=== PATIENT | male | born 1960 | race American Indian/Alaskan Native ===

== ENCOUNTER → 2020-07-19 08:46 | Outpatient (BNVA) | payer MEDICAID, SELFPAY | PROVIDERS: Visit Provider Nurse Practitioner Gerontology | DX: Z76.89 Persons encountering health services in other specified circumstances (principal) ==

== ENCOUNTER → 2020-08-19 09:43 | Outpatient (BNVA) | payer MEDICAID, SELFPAY | PROVIDERS: Visit Provider Internal Medicine Cardiovascular Disease | DX: T82.09XD Other mechanical complication of heart valve prosthesis, subsequent encounter (principal); I10 Essential (primary) hypertension; E66.09 Other obesity due to excess calories; Z68.36 Body mass index [BMI] 36.0-36.9, adult; G47.33 Obstructive sleep apnea (adult) (pediatric) | CPT/HCPCS: 93005; 99212 ==

== ENCOUNTER → 2020-09-24 08:19 | Outpatient (BNVA) | payer MEDICAID, SELFPAY | PROVIDERS: PCP Internal Medicine; Visit Provider Psychiatry & Neurology Neurology ==

== ENCOUNTER → 2020-10-15 13:34 | Outpatient (REF) | payer MEDICAID, SELFPAY | LOC: HO.SL 13:34 | PROVIDERS: PCP Internal Medicine; Visit Provider Psychiatry & Neurology Neurology | DX: G47.33 Obstructive sleep apnea (adult) (pediatric) (principal) | CPT/HCPCS: 95806 ==

== ENCOUNTER → 2020-10-16 13:27 | Outpatient (BNVA) | payer MEDICAID, SELFPAY | PROVIDERS: PCP Internal Medicine; Visit Provider Nurse Practitioner Gerontology ==

== ENCOUNTER → 2020-11-12 11:06 | Outpatient (BNVA) | payer MEDICAID, SELFPAY | PROVIDERS: PCP Internal Medicine; Visit Provider Psychiatry & Neurology Neurology ==

== ENCOUNTER → 2020-11-22 14:17 | Outpatient (BNVA) | payer MEDICAID, SELFPAY | PROVIDERS: Visit Provider Nurse Practitioner Gerontology ==

== ENCOUNTER → 2020-12-03 20:09 | Outpatient (REF) | payer MEDICAID, SELFPAY | LOC: HO.SL 20:09 | PROVIDERS: PCP Internal Medicine; Visit Provider Psychiatry & Neurology Neurology | DX: G47.33 Obstructive sleep apnea (adult) (pediatric) (principal); I10 Essential (primary) hypertension | CPT/HCPCS: 95811 ==

== ENCOUNTER 2021-01-14 08:03 | Outpatient (REF) | payer MEDICAID, SELFPAY ==
[2021-01-14 09:13] LABS: Hematocrit 40.2 % (42-52); Hemoglobin 12.7 g/dl (14.0-18.0); Mean Corpuscular HGB Conc 31.6 g/dl (31.0-36.0); Mean Corpuscular Hemoglobin 27.5 pg (27.0-33.0); Mean Corpuscular Volume 87.2 fL (80-98); Mean Platelet Volume 9.6 fL (9.4-12.4); Platelet Count 259 X10*3/uL (160-400); Red Blood Count 4.61 X10*6/uL (4.60-5.80); Red Cell Distribution Width 13.6 % (11.0-16.0); White Blood Count 6.2 X10*3/uL (4.8-10.8)
[2021-01-14 09:30] LABS: Alanine Aminotransferase 17 U/L (0-40); Albumin Level 3.9 g/dL (3.5-5.0); Alkaline Phosphatase 95 U/L (39-117); Anion Gap 13 (12-20); Aspartate Amino Transferase 11 U/L (5-37); Bilirubin Total 0.3 mg/dL (0.0-1.0); Blood Urea Nitrogen 16 mg/dL (9-16); Calcium 8.9 mg/dL (8.4-10.2); Carbon Dioxide 29 mmol/L (22-29); Chloride 99 mmol/L (96-108); Cholesterol 132 mg/dL; Estimated Glomerular Filt Rate > 60; Glucose Fasting 188 mg/dL (60-99); HDL Cholesterol 31 mg/dL; LDL Cholesterol Calculated 71 mg/dl; Potassium 4.7 mmol/L (3.3-5.1); Sodium 136 mmol/L (135-145); Total Protein 6.7 g/dL (6.5-8.0); Triglycerides 154 mg/dL
[2021-01-14 09:33] LABS: Estimated Average Glucose 240 mg/dL
[2021-01-14 09:48] LABS: B Type Natriuretic Peptide < 10 pg/mL (<100)
[2021-01-14 10:03] LABS: Creatinine Urine 238.65 mg/dL; Microalbum/Creatinine Ratio Ur 9.2 ug/mg cr
[2021-01-15 10:02] LABS: LDL Cholesterol Direct 70 mg/dL (<100)
== END 2021-01-14 08:04 | disposition home or self-care (01) ==
LOC: HO.LAB 08:03
PROVIDERS: Internal Medicine Cardiovascular Disease; Absent Provider Nurse Practitioner Gerontology; PCP Internal Medicine; Visit Provider Internal Medicine
DX: E11.40 Type 2 diabetes mellitus with diabetic neuropathy, unspecified (principal); T82.09XA Other mechanical complication of heart valve prosthesis, initial encounter; I10 Essential (primary) hypertension; E11.9 Type 2 diabetes mellitus without complications
CPT/HCPCS: 36415; 80053; 80061; 82043; 83036; 83721; 83880; 85027

== ENCOUNTER → 2021-01-15 12:32 | Outpatient (BNVA) | payer MEDICAID, SELFPAY | PROVIDERS: Visit Provider Nurse Practitioner Gerontology | DX: E11.40 Type 2 diabetes mellitus with diabetic neuropathy, unspecified (principal); E78.5 Hyperlipidemia, unspecified; E66.09 Other obesity due to excess calories; I10 Essential (primary) hypertension; Z79.4 Long term (current) use of insulin; Z68.39 Body mass index [BMI] 39.0-39.9, adult | CPT/HCPCS: 82947; 99212 ==

== ENCOUNTER → 2021-01-21 10:15 | Outpatient (BNVA) | payer MEDICAID, SELFPAY | PROVIDERS: PCP Internal Medicine; Visit Provider Psychiatry & Neurology Neurology ==

== ENCOUNTER → 2021-04-08 11:33 | Outpatient (BNVA) | payer MEDICAID, SELFPAY | PROVIDERS: PCP Internal Medicine; Visit Provider Psychiatry & Neurology Neurology | DX: T82.09XA Other mechanical complication of heart valve prosthesis, initial encounter (principal); Z95.2 Presence of prosthetic heart valve; Z86.79 Personal history of other diseases of the circulatory system | CPT/HCPCS: 99212 ==

== ENCOUNTER → 2021-06-24 10:59 | Outpatient (BNVA) | payer MEDICAID, SELFPAY | PROVIDERS: PCP Internal Medicine; Referring Provider Internal Medicine; Visit Provider Psychiatry & Neurology Neurology ==

== ENCOUNTER → 2021-07-25 13:29 | Outpatient (REF) | payer MEDICAID, SELFPAY ==
--- NOTE | 2021-07-25 13:34 | CA_ITS ---
Transthoracic Echocardiogram Patient (Last, First, Middle): Nemesio Brown, Gender: Male Date of : 1960 Age: 61 Procedure Date: 07/25/2021 Procedure Type: Transthoracic Echocardiogram Location: OP Height: 170.18 cm Weight: 104.33 kg BSA: 2.15 m2 Heart Rate: bpm BP: 116 / 60 mmHg Grocery Store Bagger: Referring MD: Jean Pierre Marie MD Symptoms: T82.09XA - Other mechanical complication of heart valve p... Study Quality: Fair ECG Rhythm: Sinus Conclusions: - Normal left ventricular size, thickness, systolic function, and wall motion. The visually estimated ejection fraction is between 60-65%. - Abnormal diastolic function is noted. Spectral Doppler is indicative of an impaired relaxation filling pattern. E/E prime ratio is <8, consistent with normal filling pressures. - There is mild aortic valve stenosis. The peak aortic velocity is 2.32 m/s. - There is mild dilatation of the ascending aorta measuring 4.20 cm. Findings Left Ventricle Normal left ventricular size, thickness, systolic function, and wall motion. The visually estimated ejection fraction is between 60-65%. Abnormal diastolic function is noted. Spectral Doppler is indicative of an impaired relaxation filling pattern. E/E prime ratio is <8, consistent with normal filling pressures. Right Ventricle Normal right ventricular cavity size and systolic function. Atria The left atrium is mildly dilated. The right atrium is normal in size. Aortic Valve A bioprosthetic aortic valve is present. There is mild aortic valve stenosis. The peak aortic velocity is 2.32 m/s. The aortic valve area is 1.58 cm2. There is no aortic valve regurgitation. Mitral Valve Normal mitral valve structure and function. There is no mitral valve regurgitation. There is no mitral valve stenosis. Pulmonic Valve Normal pulmonic valve structure and function. There is trace pulmonic valve regurgitation. Tricuspid Valve Normal tricuspid valve structure and function. There is trace tricuspid valve regurgitation. Normal right atrial pressure. There is no evidence of pulmonary hypertension. Great Vessels There is mild dilatation of the ascending aorta measuring 4.20 cm. The visualized portions of the pulmonary artery and branches are normal. Venous The inferior vena cava is normal in size. Pericardium/Pleural There is no evidence of pericardial effusion. Measurements 2D Linear Measurements IVSd: 1.01 0.6-0.9/0.6-1.0 cm LVIDd: 4.57 3.9-5.3/4.2-5.9 cm LVIDd Index: 2.13 2.4-3.2/2.2-3.1 cm/m2 LVIDs: 3.67 2.0-3.6 cm LVPWd: 1.01 0.7-1.1 cm Ao Root: 3.10 2.1-3.5 cm LA Diam: 3.40 2.7-3.8/3.0-4.0 cm LAIDs Index: 1.58 1.5-2.3 cm/m2 LV Mass: 198.38 67-162/88-224 g LV Mass Index: 92.27 43-95/49-115 g/m2 LVOT Diam: 2.00 3.0+(-)1.3 cm 2D Systolic Function EF 4C: 65.20 >55% EF 2C: 72.70 >55% EF BiP: 69.50 >55% Mitral Valve MV Pk E: 0.49 MV PK A: 0.82 MV Decel Time: 152.00 E/A: 0.60 E'Lateral: 6.42 E'Medial: 5.87 E/E' Med: 8.30 E/E' Lat: 7.60 PHT: 44.00 MVA PHT: 5.00 Decel Lynn: 3.22 Aortic Valve AoV Pk Eugneio: 2.32 AoV Mn Eugenio: 1.56 AoV VTI: 0.37 AoV Pk Grad: 22.00 Aov Mn Grad: 11.00 JOVON Cont.VTI: 1.58 LVOT LVOT Pk Eugenio: 0.97 LVOT Mn Eugenio: 0.61 LVOT VTI: 0.18 LVOT Pk Grad: 4.00 LVOT Mn Grad: 2.00 LVOT Diam: 2.00 LVOT Area: 3.14 Diastolic Function MV Pk E: 0.49 MV Pk A: 0.82 E/A: 0.60 E'Medial: 5.87 E/E' Med: 8.30 E' Laterial: 6.42 E/E' Lat: 7.60 Right Ventricle TAPSE (mm): 18.00 Tricuspid Valve TR Pk Eugenio: 1.59 TR Pk Grad: 10.00 Great Vessels Aorta Ao Root-2D: 3.10 2.0-3.7 cm Ao Asc: 4.20 2.1-3.4 cm Pulmonary Valve PV Pk Eugenio: 1.38 Peak PV Grad: 8.00 Updated in Other Vendor System with Status of Final Anthony Max MD electronically signed on 07/28/2021 9:35:25 AM with status of Final
== END ==
LOC: HO.CARD 13:29
PROVIDERS: PCP Internal Medicine; Visit Provider Internal Medicine Cardiovascular Disease
DX: T82.09XD Other mechanical complication of heart valve prosthesis, subsequent encounter (principal)
CPT/HCPCS: 93306

== ENCOUNTER → 2021-11-12 12:50 | Outpatient (BNVA) | payer MEDICAID, SELFPAY | PROVIDERS: PCP Internal Medicine; Visit Provider Nurse Practitioner Gerontology | DX: E11.40 Type 2 diabetes mellitus with diabetic neuropathy, unspecified (principal); E78.5 Hyperlipidemia, unspecified; E66.09 Other obesity due to excess calories; I10 Essential (primary) hypertension; Z68.35 Body mass index [BMI] 35.0-35.9, adult; Z79.4 Long term (current) use of insulin; Z79.84 Long term (current) use of oral hypoglycemic drugs | CPT/HCPCS: 82947; 83036; 99212 ==

== ENCOUNTER → 2022-05-13 13:32 | Outpatient (BNVA) | payer MEDICAID, SELFPAY | PROVIDERS: PCP Internal Medicine; Visit Provider Internal Medicine Cardiovascular Disease | DX: I10 Essential (primary) hypertension (principal); I77.89 Other specified disorders of arteries and arterioles; Z86.79 Personal history of other diseases of the circulatory system; Z95.2 Presence of prosthetic heart valve; Z79.82 Long term (current) use of aspirin | CPT/HCPCS: 93005; 99212 ==

== ENCOUNTER → 2023-01-01 13:46 | Outpatient (BNVA) | payer MEDICAID, SELFPAY | PROVIDERS: PCP Internal Medicine; Visit Provider Internal Medicine Endocrinology, Diabetes & Metabolism | DX: E11.40 Type 2 diabetes mellitus with diabetic neuropathy, unspecified (principal); Z79.4 Long term (current) use of insulin | CPT/HCPCS: 82947; 83036; 99212 ==

== ENCOUNTER 2023-03-01 13:31 | Outpatient (AMB) | payer MEDICAID, SELFPAY ==
--- NOTE | 2023-03-01 14:25 | MHC.AMDMED ---
Intake Intake Visit Reasons: DM2 Photographic Restorer Required: Yes Photographic Restorer Language: Behavioral Therapist Name: [facility] [place] Interpreted: non-clinical & clinical Accompanied by: Self / Same As Patient Allergies insulin glargine [From [employer] U-300 SoloStar] Allergy (Intermediate, Verified 06/24/21 11:00) itching HPI Comprehensive Diabetes Asmnt Most Recent Diabetes Results: No Data to Display PFSH Medical History Arthritis Asthma BMI 39.0-39.9,adult Cardiomyopathy Depression Erectile dysfunction Esophageal reflux Essential hypertension History of cardiomyopathy Hyperlipidemia LDL goal <70 Hypogonadism Nephrolithiasis Obesity due to excess calories Opioid dependence TAMARA (obstructive sleep apnea) Polyarthropathy Prosthetic valve dysfunction Type 2 diabetes mellitus with diabetic neuropathy, unspecified Surgical History History of heart valve replacement Hx of umbilical hernia repair Family History Father Heart disease CVD (cardiovascular disease) Mother DM2 (diabetes mellitus, type 2) Social History Household Members: None Alcohol intake: current Alcohol intake frequency: does not drink Patient Tobacco Use Status: Former Tobacco user Current occupational status: disabled Assessment & Plan Assessment & Plan (1) Type 2 diabetes mellitus with diabetic neuropathy, unspecified: Code(s): E11.40 - Type 2 diabetes mellitus with diabetic neuropathy, unspecified Qualifiers: Diabetes mellitus termite control representative insulin use: with termite control representative use Qualified Code(s): E11.40 - Type 2 diabetes mellitus with diabetic neuropathy, unspecified; Z79.4 - penitentiary (current) use of insulin Plan: Diabetes self-management education and support participation record Assessment/scale: 1= needs instructed? 2= needs review? 3= comprehend keep point? 4= demonstrates understanding/ competent? NC= Not Covered Topics Learning Objective: Initial visit Initial or post srvc Initial or post srvc Initial or post srvc Initial or post srvc Initial or post srvc Post srvc Comments Pre Edu-assessment/plan Outcome or reassess Outcome or reassess Outcome or reassess Outcome or reassess Outcome or reassess Outcome or reassess Diabetes pathophysiology 1 Healthy eating 2 Being active Taking medication 1 Monitoring glucose 2 Acute complication Chronic complicated 1 Lifestyle and healthy coping Diabetes distress in support ?Diabetes pathophysiology: ?Defined diabetes med identify own type of diabetes; list 3 options for treating diabetes Healthy eating: ?Described effect of type, amount and ?timing of food on blood glucose; list 3 methods for planning meal Being active: ?State effect of exercise on blood glucose level Taking medication: ?State effect of diabetes medications on diabetes; name diabetes medications taking, action and side effects Monitoring glucose: ?Identify recommended blood glucose targets and personal target Acute complication: ?List symptoms and treatment of hyper and hypoglycemia, DKA, sick day guidelines and guidelines for severe weather or situations of crisis and diabetes supply manage Chronic complication: ?To find the relationship of blood glucose levels to long-term complications of diabetes in screening and preventative measures Lifestyle and healthy coping: ?Described lifestyle and healthy coping strategies to rule out diabetes self-management Diabetes to stress and support: ?Recognize Diabetes to stress and be able to identified support options Learning objectives: The patient was provided with verbal and written education on the following topics as outlined below. The patient met all learning objectives and was able to verbalize understanding and provide teach back of education topics discussed . The patient was provided with the opportunity to ask questions and all questions were answered. Patient Assessment Assess patient education level/literacy/barriers Patient questions/concerns, patient lives with daughter, last A1c in December 2022 13 %, patient reports he does not cook his daughter does the shopping and cooking. Reports he was diagnosed approximately 8 years ago. Recalls he saw Diabetes Education at [facility], after diagnosed. He is currently taking Tresiba 96 units which does not match what he was prescribed, however he says his PCP from [facility] increased it He is also taking Humalog 14 units before breakfast 16 units before lunch, 18-20 units before dinner He does not take metformin 1000 mg or Jardiance 25 mg daily. Instructed patient it is important he discussed with Dr. Fletcher at next visit why he is not taking oral medications. There has been a slight decrease in glucose level over the past 5 days, patient reports he has been eating smaller portions of right which may account for change in glucose pattern What is Diabetes? Pathophysiology How the body produces and uses insulin Identify type of DM Risk factors Signs of Diabetes Brief overview of Diabetes Management Monitoring blood sugar Following a meal plan Regular exercise Maintaining a healthy weight Taking medication as needed Members of the care team (PCP, RN, MA, RD, CDE, counter top assembler) Blood glucose monitoring When/how often to test Target blood sugar ranges Patient using freestyle Yahaira 2 Average glucose for the past 2 weeks 267 mg/dL Patient above target 84% Patient at target 16 % Patient below target 0% Introduction to Nutrition Importance of healthy diet in managing DM Diet is personalized to individual preference Review patient?s regular diet/food preferences Who prepares meals/does food shopping/ Dining out?/ Barriers? How diet effects glucose Eating 3 balanced meals a day with small, healthy snacks between meals Review food groups Carbohydrates: What is a carbohydrate/Which food/food groups are considered carbohydrates Effect of carbohydrates on blood glucose Portion sizes Reading food labels Basic carb counting (if applicable per nursing assessment) Plate method Meal planning Recommendations: Follow plate method, consistent carbs and read nutritional labels. Smart Goal: Educational Materials: The patient was provided with the following written educational materials: Planning Healthy Meals Handout Patient Response to instructions: Comprehension of Instructions: Fair Readiness to make changes: Contemplation How confident they feel about making changes: fair Patient Instructions: Incluir actividad diaria regular. ADA recomienda 30 minutos de ejercicio 5 d?as a la semana. P?rdida de peso, hable con el PCP o el cardi?logo antes de comenzar un nuevo plan. Mida el nivel de az?car en la winnie seg?n las indicaciones; Ayuno y comida m?s lizzette de 2hpp. Observe las tendencias en los resultados. Utilice los resultados y eval?e c?mo los alimentos, la actividad f?israel y los medicamentos afectan los resultados de az?car en la winnie. Lleve el gluc?metro o CGM a la pr?xima visita. Conocer los medicamentos para la diabetes, hooks acci?n, los efectos secundarios, la eficacia, la toxicidad, la dosis prescrita, el momento y la frecuencia de administraci?n apropiados, el efecto de las dosis olvidadas y retrasadas y las instrucciones de almacenamiento, viaje y seguridad. T?cnicas de resoluci?n de problemas para el seguimiento de episodios de hipo/hiperglucemia y tratamientos. Reducir los comportamientos de reducci?n de riesgos, dejar de fumar, ex?menes regulares de ojos, pies y dentales. Coding Level of Care Code Est Pt Level 1 (29476) Diagnoses Type 2 diabetes mellitus with diabetic neuropathy, unspecified E11.40; Z79.4 Diabetes mellitus termite control representative insulin use: with fdc use
== END 2023-03-01 14:35 | disposition home or self-care (01) ==
PROVIDERS: PCP Internal Medicine; Visit Provider Registered Nurse Diabetes Educator
DX: E11.40 Type 2 diabetes mellitus with diabetic neuropathy, unspecified (principal); Z79.4 Long term (current) use of insulin

== ENCOUNTER → 2023-03-01 13:31 | Outpatient (BNVA) | payer MEDICAID, SELFPAY | PROVIDERS: Visit Provider Registered Nurse Diabetes Educator | DX: E11.40 Type 2 diabetes mellitus with diabetic neuropathy, unspecified (principal); Z79.4 Long term (current) use of insulin | CPT/HCPCS: 99211 ==

== ENCOUNTER 2023-03-09 09:15 | Outpatient (REF) | payer MEDICAID, SELFPAY ==
[2023-03-09 12:37] LABS: Alanine Aminotransferase 13 U/L (0-40); Albumin Level 3.9 g/dL (3.5-5.0); Alkaline Phosphatase 86 U/L (39-117); Aspartate Amino Transferase 13 U/L (5-37); Bilirubin Direct 0.2 mg/dL (0.0-0.5); Bilirubin Total 0.5 mg/dL (0.0-1.0)
[2023-03-09 12:49] LABS: ~HepC Num1 0.08 S/CO (0.00-0.79); ~Hepatitis C Antibody Nonreactive (Nonreactive)
[2023-03-09 12:51] LABS: HIV AB/AG Nonreactive (Nonreactive); HIV Num 1 0.05 S/CO (0.00-0.99)
== END 2023-03-09 09:16 | disposition home or self-care (01) ==
LOC: HO.HHCL 09:15
PROVIDERS: Visit Provider Emergency Medicine
DX: Z11.4 Encounter for screening for human immunodeficiency virus [HIV] (principal); F11.20 Opioid dependence, uncomplicated
CPT/HCPCS: 36415; 80076; 86803; 87389

== ENCOUNTER 2023-03-15 13:32 | Outpatient (AMB) | payer MEDICAID, SELFPAY ==
--- NOTE | 2023-03-15 14:03 | MHC.AMNUTRGE ---
Intake VS Expanded 03/15/23 14:05 Height 5 ft 8 in Weight 236 lb 1.841 oz BMI 35.9 Intake Visit Reasons: DM2 Allergies insulin glargine [From Bao Max U-300 SoloStar] Allergy (Intermediate, Verified 06/24/21 11:00) itching HPI Nutrition Presentation Details Patient presents for medical nutrition therapy for type 2 diabetes. Patient was referred by Dr. Fletcher, bedspread seamer Food recall: Fruits: Greater than 2 a day plus juices greater than 6 oz Vegetables: 2-3 servings 2 times a week Dairy: Greater than 4 per day (milk, importance, cheese) Protein foods: Poultry, beef, a eggs, cheese greater than 16 oz per day Starches greater than 25 servings per day Patient reports increased snacking in between meals Physical activity: Sedentary Alcohol/smoking:------ VSU-Mrgbmml-Ka.Jeor Equation Height 5 ft 8 in Weight 236 lb Resting Metabolic Rate 1848.87 Calculated Activity Level Sedentary Calories Needed to Maintain Weight 2218.64 Diagnosis Nutrition problem #1 excessive energy intake As related to (etiology) #1 diagnosis As evidenced by (sign/symptom) #1 food recall Most Recent Diabetes Results: AST 13 U/L (5-37) 03/09/23 ALT 13 U/L (0-40) 03/09/23 Total Protein 7.0 g/dL (6.5-8.0) 03/09/23 Albumin 3.9 g/dL (3.5-5.0) 03/09/23 [facility] Medical History Arthritis Asthma BMI 39.0-39.9,adult Cardiomyopathy Depression Erectile dysfunction Esophageal reflux Essential hypertension History of cardiomyopathy Hyperlipidemia LDL goal <70 Hypogonadism Nephrolithiasis Obesity due to excess calories Opioid dependence TAMARA (obstructive sleep apnea) Polyarthropathy Prosthetic valve dysfunction Type 2 diabetes mellitus with diabetic neuropathy, unspecified Surgical History History of heart valve replacement Hx of umbilical hernia repair Family History Father Heart disease CVD (cardiovascular disease) Mother DM2 (diabetes mellitus, type 2) Social History Household Members: None Alcohol intake: current Alcohol intake frequency: does not drink Patient Tobacco Use Status: Former Tobacco user Current occupational status: disabled Assessment & Plan Assessment & Plan (1) Type 2 diabetes mellitus with diabetic neuropathy, unspecified: Code(s): E11.40 - Type 2 diabetes mellitus with diabetic neuropathy, unspecified Qualifiers: Diabetes mellitus roasterman insulin use: with long-term use Qualified Code(s): E11.40 - Type 2 diabetes mellitus with diabetic neuropathy, unspecified; Z79.4 - intermodal dispatcher (current) use of insulin Plan: wt: 107 Est kcal needs as per MSJ: 2200 (40% carb, 30% protein/fat) Est fluid needs as per 25-30 ml/d: 2700 - 3200 Est prot per day as per 1 g/kg bw: 107 Recommend fiber intake : 8-10 g per day and gradually increase to 25-28 g per day for women and 35-38 g for men or as tolerated Recommend sodium intake per day : less than 2000 mg Educated patient on: ( R = reviewed V = verbalizes understanding N/R = needs review N/A = not applicable Food sources of carbohydrate, adequate serving sizes and its role in various health conditions: R Differences between complex carbohydrates a simple carbohydrates, role of fiber in diet: R Differences between types of fats and role in diet (mono on saturated fat fatty acids, saturated fatty acids, trans fats): R Food sources of sodium in salt and healthy modifications for heart health in kidney health: R Vitamins and minerals: R Healthy plate method concept: R V Physical activity: Benefits a precaution: R Hypoglycemia protocol (rule of 15): R Dietary prevention of Hyperglycemia: R Mindful eating strategies: Review Patient Instructions: Practice mindful eating strategies Limit snacks to 2 a day consisting of 0-20 g of carbohydrates each Work on following healthy plate method and keeping hydrated with low sugar Options see list of meal ideas and beverages Coding Level of Care Code Nutr Indiv Intake (16830) Diagnoses Type 2 diabetes mellitus with diabetic neuropathy, unspecified E11.40; Z79.4 Diabetes mellitus long-term insulin use: with long-term use Time Spent (min) 40
[2023-03-15 14:05] VITALS: BMI 35.9
[2023-03-18 15:00] VITALS: BMI 35.9
== END 2023-03-15 14:57 | disposition home or self-care (01) ==
PROVIDERS: PCP Internal Medicine; Visit Provider Dietitian, Registered
DX: E11.40 Type 2 diabetes mellitus with diabetic neuropathy, unspecified (principal); Z79.4 Long term (current) use of insulin

== ENCOUNTER → 2023-03-15 13:32 | Outpatient (BNVA) | payer MEDICAID, SELFPAY | PROVIDERS: Visit Provider Dietitian, Registered | DX: E11.40 Type 2 diabetes mellitus with diabetic neuropathy, unspecified (principal); Z79.4 Long term (current) use of insulin | CPT/HCPCS: 97802 ==

== ENCOUNTER 2023-04-06 13:50 | Outpatient (REF) | payer MEDICAID, SELFPAY ==
[2023-04-06 16:55] LABS: Anion Gap 13 (12-20); Blood Urea Nitrogen 11 mg/dL (9-16); Calcium 9.2 mg/dL (8.4-10.2); Carbon Dioxide 29 mmol/L (22-29); Chloride 101 mmol/L (96-108); Estimated Glomerular Filt Rate > 60; Glucose Random 106 mg/dL (60-115); Potassium 4.3 mmol/L (3.3-5.1); Sodium 139 mmol/L (135-145)
[2023-04-06 16:58] LABS: Cholesterol 158 mg/dL (<200); HDL Cholesterol 33 mg/dL (>40); LDL Cholesterol Calculated 83 mg/dL (<100); Triglycerides 213 mg/dL (<150)
[2023-04-06 17:10] LABS: Prostate Specific Antigen 0.21 ng/mL (<0.05-4.0)
[2023-04-06 17:22] LABS: Reflex LDLD? No
== END 2023-04-06 13:51 | disposition home or self-care (01) ==
LOC: HO.HHCL 13:50
PROVIDERS: Visit Provider Internal Medicine
DX: Z00.00 Encounter for general adult medical examination without abnormal findings (principal); Z12.5 Encounter for screening for malignant neoplasm of prostate; I10 Essential (primary) hypertension
CPT/HCPCS: 36415; 80048; 80061; 84153

== ENCOUNTER 2023-04-07 13:48 | Outpatient (AMB) | payer MEDICAID, SELFPAY ==
[2023-04-07 13:54] VITALS: BP 102/74; PULSE 74; BMI 36.4
--- NOTE | 2023-04-07 13:54 | MHC.OFFVIS ---
Intake Vital Signs 04/07/23 13:54 Height 5 ft 8 in Weight 239 lb 6.752 oz BMI 36.4 BP 102/74 Blood Pressure Location Lt brachial Position Sitting Pulse 74 Pulse Source Pulse Oximeter Intake Visit Reasons: F/Up Type 2 DM Intake Note: Patient present today to follow up on Type 2 Diabetes Mellitus. Patient receives DME supplies through: Last Diabetic Eye exam: 04/02/23 Last Podiatry Visit: Doesn't have one. Random Glucose: 133 mg/dl HgA1C: 10.2% Occupational Therapy Asst Required: Yes Occupational Therapy Asst Language: Copy Center Operator Name: Medical staffLv Wasserman Information Interpreted: non-clinical & clinical Accompanied by: Self / Same As Patient Allergies insulin glargine [From [facility] U-300 SoloStar] Allergy (Intermediate, Verified 04/07/23 13:59) itching HPI HPI Comments History of Present Illness Details Patient is a 62 yo male with DM type 2 diagnosed about 10 years ago who presents for the management of diabetes. Past medical history includes : asthma, CAD, HLD, sleep apnea Micro and macrovascular complications: + neuropathy, + CAD Diabetes medications: Tresiba 82 units, insulin lispro 12-16 units prior to meals, metformin ER 500 1 pills twice daily stopped because of GI cramping , Trulicity 3.0 mg/week not taking because of diarrhea . Jardiance 25mg daily taking Blood glucose monitoring: Yahaira download shows he is using the sensor 61% of the time. Average glucose is 243 with G mi of 9.1% and variability 25.3%. 14% range with 86% hyperglycemia and no hypoglycemia. Pattern shows decreasing blood sugars overnight but increases after breakfast and after lunch Symptoms reported: + numbness/tingling in legs, occasional cramping. Reports burning on lateral aspect of left foot. Hypoglycemia: denies Hyperglycemia: reports polyuria, nocturia once a night, reports polydypsia Exercise: walk 1/2 hour most days. Eye exam: saw last wk , reports no retinopathy Labs received from [employer] dated 07/01/2021: Glucose 234 Creatinine 0.8 Estimated GFR 96 A1c 11.8% Cholesterol 140 HDL 40 Triglycerides 149 LDL 75 Laboratory Tests 11/12/21 13:12 Hgb A1c (Clinic) 10.1 H 01/14/21 01/14/21 01/14/21 08:12 08:12 08:12 Creatinine 0.81 Estimated GFR > 60 Hemoglobin A1c % Triglycerides 154 Cholesterol 132 LDL Cholesterol Di rect 70 LDL Cholesterol, C alc 71 HDL Cholesterol 31 Microalb/Creat Rat io 9.2 01/14/21 08:12 Creatinine Estimated GFR Hemoglobin A1c % 10.0 Triglycerides Cholesterol LDL Cholesterol Di rect LDL Cholesterol, C alc HDL Cholesterol Microalb/Creat Rat io PFSH Medical History Arthritis Asthma BMI 39.0-39.9,adult Cardiomyopathy Depression Erectile dysfunction Esophageal reflux Essential hypertension History of cardiomyopathy Hyperlipidemia LDL goal <70 Hypogonadism Nephrolithiasis Obesity due to excess calories Opioid dependence TAMARA (obstructive sleep apnea) Polyarthropathy Prosthetic valve dysfunction Type 2 diabetes mellitus with diabetic neuropathy, unspecified Surgical History History of heart valve replacement Hx of umbilical hernia repair Family History Father Heart disease CVD (cardiovascular disease) Mother DM2 (diabetes mellitus, type 2) Social History Household Members: None Alcohol intake: current Alcohol intake frequency: does not drink Patient Tobacco Use Status: Former Tobacco user Current occupational status: disabled Physical Exam Vital Signs: Last Vital Signs Pulse 74 04/07/23 13:54 BP 102/74 04/07/23 13:54 BMI result Body Mass Index 36.4 Results AMB Hemoglobin A1c AMB Hemoglobin A1c 10.2 % Last Edit by Martha Ramey on 04/07/23 14:28 Results Reviewed Results Reviewed: 04/07/23 14:05 Glucose, Whole Blood Routine Laboratory Last Values Glucose (Clinic) 133 mg/dL (60-115) H 04/07/23 14:05 Assessment & Plan Assessment & Plan (1) Type 2 diabetes mellitus with diabetic neuropathy, unspecified: Code(s): E11.40 - Type 2 diabetes mellitus with diabetic neuropathy, unspecified Qualifiers: Diabetes mellitus intermediate insulin use: with intermediate use Qualified Code(s): E11.40 - Type 2 diabetes mellitus with diabetic neuropathy, unspecified; Z79.4 - long-term (current) use of insulin Plan: This 62-year-old male with a history of type 2 diabetes being treated with metformin Arnol Jardiance and basal-bolus insulin with poor glycemic control and known microvascular and macrovascular complications namely coronary artery disease and neuropathy Plan is to start an alternative G LP 1 agonist namely Ozempic 0.25 mg q.week and titrate if tolerated. Told patient to report any hypoglycemia for insulin adjustment. Also asked patient to follow up with staff development educator Ozempic 0.25 mg samples given the patient lot number [id number] expiration date 09/15/2024 Orders: Orders AMB Hemoglobin A1c Today E11.40 - Type 2 diabetes mellitus with diabetic neuropathy, unspecified Medications: New semaglutide (Ozempic) 0.5 mg (0.736 mL) subcut QWEEK 3 mL 5RF Coding Level of Care Code Est Pt Level 4 (95774) Diagnoses Type 2 diabetes mellitus with diabetic neuropathy, unspecified E11.40; Z79.4 Diabetes mellitus ad terminal makeup operator insulin use: with intermediate use
[2023-04-07 14:10] LABS: Glucose, Whole Blood 133 mg/dL (60-115)
== END 2023-04-07 14:40 | disposition home or self-care (01) ==
PROVIDERS: PCP Internal Medicine; Visit Provider Internal Medicine Endocrinology, Diabetes & Metabolism
DX: E11.40 Type 2 diabetes mellitus with diabetic neuropathy, unspecified (principal); Z79.4 Long term (current) use of insulin
CPT/HCPCS: 99214

== ENCOUNTER → 2023-04-07 13:48 | Outpatient (BNVA) | payer MEDICAID, SELFPAY | PROVIDERS: Visit Provider Internal Medicine Endocrinology, Diabetes & Metabolism | DX: E11.40 Type 2 diabetes mellitus with diabetic neuropathy, unspecified (principal); Z79.4 Long term (current) use of insulin | CPT/HCPCS: 82947; 83036; 99212 ==

== ENCOUNTER 2023-04-28 12:48 | Outpatient (AMB) | payer MEDICAID, SELFPAY ==
[2023-04-28 12:59] VITALS: BMI 35.9
--- NOTE | 2023-04-28 12:59 | MHC.AMNUTRGE ---
Intake VS Expanded 04/28/23 12:59 Height 5 ft 8 in Weight 236 lb 5.369 oz BMI 35.9 Intake Visit Reasons: T2DM Allergies insulin glargine [From [employer]o U-300 SoloStar] Allergy (Intermediate, Verified 04/07/23 13:59) itching HPI Nutrition Presentation Details Pt presents for MNT f/u for T2DM wt hx : 270 lbs a year ago, working on gradually reducing portion sizes. Reports keeping sedentary and expresses interest in discussing physical activity today. Most Recent Diabetes Results: Cholesterol 158 mg/dL (<200) 04/06/23 HDL Cholesterol 33 mg/dL (>40) L 04/06/23 Triglycerides 213 mg/dL (<150) H 04/06/23 Creatinine 0.75 mg/dL (0.5-1.4) 04/06/23 Blood Urea Nitrogen 11 mg/dL (9-16) 04/06/23 Sodium 139 mmol/L (135-145) 04/06/23 Potassium 4.3 mmol/L (3.3-5.1) 04/06/23 Chloride 101 mmol/L (96-108) 04/06/23 Carbon Dioxide 29 mmol/L (22-29) 04/06/23 Calcium 9.2 mg/dL (8.4-10.2) 04/06/23 AST 13 U/L (5-37) 03/09/23 ALT 13 U/L (0-40) 03/09/23 Total Protein 7.0 g/dL (6.5-8.0) 03/09/23 Albumin 3.9 g/dL (3.5-5.0) 03/09/23 [facility] Medical History Arthritis Asthma BMI 39.0-39.9,adult Cardiomyopathy Depression Erectile dysfunction Esophageal reflux Essential hypertension History of cardiomyopathy Hyperlipidemia LDL goal <70 Hypogonadism Nephrolithiasis Obesity due to excess calories Opioid dependence TAMARA (obstructive sleep apnea) Polyarthropathy Prosthetic valve dysfunction Type 2 diabetes mellitus with diabetic neuropathy, unspecified Surgical History History of heart valve replacement Hx of umbilical hernia repair Family History Father Heart disease CVD (cardiovascular disease) Mother DM2 (diabetes mellitus, type 2) Social History Household Members: None Alcohol intake: current Alcohol intake frequency: does not drink Patient Tobacco Use Status: Former Tobacco user Current occupational status: disabled Assessment & Plan Assessment & Plan (1) Type 2 diabetes mellitus with diabetic neuropathy, unspecified: Code(s): E11.40 - Type 2 diabetes mellitus with diabetic neuropathy, unspecified Qualifiers: Diabetes mellitus ad terminal makeup operator insulin use: with senior care use Qualified Code(s): E11.40 - Type 2 diabetes mellitus with diabetic neuropathy, unspecified; Z79.4 - terminal makeup operator (current) use of insulin Plan: Goal set: 04/2023 Pt agreed to Engage in physical activity 30 minutes 3 times week at 6 pm (Wed, Wednesday, ) Hacer ejercicios (maquina de bicicleta) por 30 minutos , 3 veces a la semana a las 6 pm ( la comay ) [place], Vier[place], Lunes) wt: 107 Est kcal needs as per MSJ: 2200 (40% carb, 30% protein/fat) Est fluid needs as per 25-30 ml/d: 2700 - 3200 Est prot per day as per 1 g/kg bw: 107 Recommend fiber intake : 8-10 g per day and gradually increase to 25-28 g per day for women and 35-38 g for men or as tolerated Recommend sodium intake per day : less than 2000 mg Educated patient on: ( R = reviewed V = verbalizes understanding N/R = needs review N/A = not applicable Food sources of carbohydrate, adequate serving sizes and its role in various health conditions: R Differences between complex carbohydrates a simple carbohydrates, role of fiber in diet: R Differences between types of fats and role in diet (mono on saturated fat fatty acids, saturated fatty acids, trans fats): R Food sources of sodium in salt and healthy modifications for heart health in kidney health: R Vitamins and minerals: R Healthy plate method concept: R V Physical activity: Benefits a precaution: R , V Hypoglycemia protocol (rule of 15): R Dietary prevention of Hyperglycemia: R Mindful eating strategies: Review Patient Instructions: Pt agreed to Engage in physical activity 30 minutes 3 times week at 6 pm (Wed, Wednesday, ) Hacer ejercicios (maquina de bicicleta) por 30 minutos , 3 veces a la semana a las 6 pm ( la comay ) los [place], [place]ier[place], Satish) Coding Level of Care Code Nutr Indiv Subseq (52710) Diagnoses Type 2 diabetes mellitus with diabetic neuropathy, with long-term current use of insulin E11.40; Z79.4 Diabetes mellitus ad terminal makeup operator insulin use: with senior care use Time Spent (min) 30
== END 2023-04-28 13:44 | disposition home or self-care (01) ==
PROVIDERS: PCP Internal Medicine; Visit Provider Dietitian, Registered
DX: E11.40 Type 2 diabetes mellitus with diabetic neuropathy, unspecified (principal); Z79.4 Long term (current) use of insulin

== ENCOUNTER → 2023-04-28 12:48 | Outpatient (BNVA) | payer MEDICAID, SELFPAY | PROVIDERS: PCP Internal Medicine; Visit Provider Dietitian, Registered | DX: E11.40 Type 2 diabetes mellitus with diabetic neuropathy, unspecified (principal); Z79.4 Long term (current) use of insulin | CPT/HCPCS: 97803 ==

== ENCOUNTER 2023-05-11 12:52 | Outpatient (AMB) | payer MEDICAID, SELFPAY ==
--- NOTE | 2023-05-11 13:33 | A.OFFVIS_ITS ---
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[employer] Name: Asif Allergies insulin glargine [From Eduardoulinda Max U-300 SoloStar] Allergy (Intermediate, Verified 04/07/23 13:59) itching Medication List - Last Reconciled 05/11/23 by Jean Pierre Marie MD blood sugar diagnostic (FreeStyle Lite Strips) 1 strip miscellaneous TID blood-glucose meter (FreeStyle Lite Meter kit) As directed carvedilol 12.5 mg PO BID empagliflozin (Jardiance) 25 mg PO QAM flash glucose scanning reader (FreeStyle Yahaira 2 [place]) As directed flash glucose sensor (FreeStyle Yahaira 2 Sensor kit) As directed every 2 weeks insulin degludec (Tresiba FlexTouch U-200 insulin) 64 units (0.32 mL) subcut BEDTIME 30 days insulin lispro 12 - 14 units (0.12 - 0.14 mL) subcut TID lancets (FreeStyle Lancets) As directed three time a day omeprazole 20 mg PO DAILY pen needle, diabetic (BD Ultra-Fine Gisella Pen Needle) As directed four times a day valsartan 80 mg PO BID HPI HPI Comments History of Present Illness Details Nemesio comes for follow-up. History was obtained with help of a motor vehicle parts interpreter. Patient has been doing well. He finds no restriction to his activity level. Denies any exertional chest pain or shortness of breath. Denies orthopnea, PND, leg edema. Denies any lightheadedness, syncope. Takes all his medications. Uses CPAP. [facility] Medical History History of cardiomyopathy Prosthetic valve dysfunction BMI 39.0-39.9,adult Cardiomyopathy TAMARA (obstructive sleep apnea) Opioid dependence Hypogonadism Polyarthropathy Erectile dysfunction Nephrolithiasis Depression Esophageal reflux Arthritis Asthma Hyperlipidemia LDL goal <70 Obesity due to excess calories Essential hypertension Type 2 diabetes mellitus with diabetic neuropathy, unspecified Surgical History History of heart valve replacement Hx of umbilical hernia repair Family History Father Heart disease CVD (cardiovascular disease) Mother DM2 (diabetes mellitus, type 2) Social History Household Members: None Alcohol intake: current Alcohol intake frequency: does not drink Patient Tobacco Use Status: Former Tobacco user Current occupational status: disabled Review of Systems Const Denies chills, Denies fatigue, Denies fever(s), Denies frequent falls, Denies weakness, Denies weight gain and Denies weight loss ENT Denies dizziness Card Denies chest pain, Denies leg edema, Denies lightheadedness, Denies palpitati ons, Denies dyspnea, Denies dyspnea on exertion, Denies orthopnea and Denies other (loss of consciousness) Resp Denies cough, Denies dyspnea and Denies dyspnea on exertion GI Denies hematochezia and Denies change in stool character Musc Denies abnormal gait, Denies muscle weakness, Denies numbness, Denies radiating pain into limb and Denies tingling Neuro Denies abnormal gait, Denies dizziness, Denies frequent falls, Denies numbness, Denies tingling and Denies weakness Endo Denies fatigue and Denies palpitations Physical Exam Vital Signs: Last Vital Signs Pulse 86 05/11/23 13:34 BP 120/78 05/11/23 13:34 BMI result Body Mass Index 35.5 Const General: cooperative, comfortable, alert and awake Nutritional Appearance: obese morbidly obese Orientation/consciousness: patient oriented x3 Limitations: no limitations HEENT Head: Yes normocephalic and Yes atraumatic Neck Neck: Yes trachea midline, Yes supple and Yes no JVD Chest Chest palpation & inspection: normal inspection of the chest and other (Well- healed sternotomy scar) Resp Effort & Inspection: normal respiratory effort Auscultation: clear to auscultation bilaterally Cardio Jugular venous distension: no JVD Palpation: normal PMI Rate: regular rate Rhythm: regular rhythm Heart sounds: S1 normal heart sound present, S2 normal heart sound present and Murmur heart sound present systolic early, decrescendo and crescendo GI Auscultation: normal bowel sounds Skin General skin exam: no rashes or lesions noted Neuro General: patient oriented x3 and no focal motor deficits Extrem General: Yes no clubbing, cyanosis or edema Psych Appearance: grossly normal Office Procedures EKG Details: EKG shows normal sinus rhythm with diffuse T-wave changes most likely suggestive of repolarization abnormality, unchanged from before [id number], Complete Assessment & Plan Assessment & Plan (1) Prosthetic valve dysfunction: Comment: Secondary to patient prosthesis mismatch. Mean gradient of 21 mm Hg post surgical at baseline. Code(s): T82.09XA - Other mechanical complication of heart valve prosthesis, initial encounter Plan: Patient with mild patient prosthesis mismatch status post bioprosthetic aortic valve replacement. Overall otherwise valve function well. No symptoms related to it. Continue aggressive medical therapy. Continue low-dose aspirin therapy for life. Continue SBE prophylaxis as per ACC/aha guidelines. Continue aggressive vascular risk factor modification. (2) History of cardiomyopathy: Comment: Improved after aortic valve replacement with last LVEF of 50-55% Code(s): Z86.79 - Personal history of other diseases of the circulatory system Plan: Prior history of cardiomyopathy improved LV systolic function since valve replacement as well as neurohormonal modulation as well as treatment of sleep apnea. Continue current neurohormonal modulation. Importance of this was discussed. Continue CPAP therapy. Continue participate in weight loss program as well as. Importance of regular physical activity was discussed. Schedule for echocardiogram tomorrow, will follow-up with results with him over the telephone. (3) Enlarged thoracic aorta: Code(s): I77.89 - Other specified disorders of arteries and arterioles Plan: Mild thoracic aortic enlargement. Follow-up echocardiogram tomorrow. Advised to avoid sudden strenuous isometric exercise. There is no indication for repair at this point time. Continue aggressive blood pressure control. Will follow up in the clinic in 1 year's time, sooner p.r.n.. Thank you for allowing me to partake in his care Coding Level of Care Code Est Pt Level 4 (40479) Diagnoses Prosthetic valve dysfunction T82.09XA History of cardiomyopathy Z86.79 Enlarged thoracic aorta I77.89 CPT Codes EKG - CPT: 34951-[id number], Complete ([id number])
[2023-05-11 13:34] VITALS: BP 120/78; PULSE 86; BMI 35.5
== END 2023-05-11 14:39 | disposition home or self-care (01) ==
PROVIDERS: PCP Internal Medicine; Visit Provider Internal Medicine Cardiovascular Disease
DX: T82.09XA Other mechanical complication of heart valve prosthesis, initial encounter (principal); Z86.79 Personal history of other diseases of the circulatory system; I77.89 Other specified disorders of arteries and arterioles
CPT/HCPCS: 93010; 99214

== ENCOUNTER → 2023-05-11 12:52 | Outpatient (BNVA) | payer MEDICAID, SELFPAY | PROVIDERS: PCP Internal Medicine; Visit Provider Internal Medicine Cardiovascular Disease | DX: T82.09XD Other mechanical complication of heart valve prosthesis, subsequent encounter (principal); I77.89 Other specified disorders of arteries and arterioles; Z86.79 Personal history of other diseases of the circulatory system | CPT/HCPCS: 93005; 99212 ==

== ENCOUNTER → 2023-05-12 12:31 | Outpatient (REF) | payer MEDICAID, SELFPAY ==
--- NOTE | 2023-05-12 12:34 | CA_ITS ---
Transthoracic Echocardiogram Patient (Last, First, Middle): Nemesio Brown, Gender: Male Date of : 1960 Age: 62 Procedure Date: 05/12/2023 Procedure Type: Transthoracic Echocardiogram Location: OP Height: 172.72 cm Weight: 113.4 kg BSA: 2.25 m2 Heart Rate: 77 bpm BP: 112 / 66 mmHg Platform Material Handler Manager: MELISSA/LORRIE Referring MD: Jean Pierre Marie MD Tack Puller: Jean Pierre Marie MD Symptoms: S/p AVR Study Quality: Fair ECG Rhythm: Sinus Conclusions: - 1. Normal LV ejection fraction 55-60% with impaired relaxation filling pattern 2. Normally function bioprosthetic aortic valve with mean gradient of 11 mmHg 3. Mildly dilated ascending aorta 4.2 cm 4. Normal RV systolic pressure 5. No gross pericardial effusion Findings Procedure Information Contrast agent, definity, is being given per protocol without apparent complications. The quality of the study was technically difficult. The study quality is limited by patients body habitus. Left Ventricle Normal left ventricular size, thickness, and systolic function. The visually estimated ejection fraction is between 55-60%. There is paradoxical septal motion consistent with post-operative status. Spectral Doppler is indicative of an impaired relaxation filling pattern. Right Ventricle The right ventricle was not well visualized. Atria The left atrium was not well visualized. Interatrial shunt cannot be excluded. The right atrium was not well visualized. Aortic Valve A bioprosthetic aortic valve is present. The prosthetic aortic valve appears to be functioning normally. The mean gradient is 11 mmHg. Mitral Valve The mitral valve was not well visualized. There is no mitral valve regurgitation. There is no mitral valve stenosis. Pulmonic Valve The pulmonic valve was not well visualized. Tricuspid Valve Likely normal tricuspid valve structure and function. There is trace tricuspid valve regurgitation. The right ventricular systolic pressure is normal. The right ventricular systolic pressure is 25 mmHg. Normal right atrial pressure. There is no evidence of pulmonary hypertension. Great Vessels The pulmonary artery was not well visualized. There is mild dilatation of the ascending aorta measuring 4.20 cm. Venous The inferior vena cava is normal in size and collapses greater than 50% with inspiration. Pericardium/Pleural The pericardium was not well visualized. Prior Study Comparison Changes noted compared to prior study dated: 07/25/2021. aortic valve velocities are not significantly elevated on this study Measurements 2D Linear Measurements IVSd: 0.94 0.6-0.9/0.6-1.0 cm LVIDd: 4.18 3.9-5.3/4.2-5.9 cm LVIDd Index: 1.86 2.4-3.2/2.2-3.1 cm/m2 LVIDs: 3.23 2.0-3.6 cm LVPWd: 0.77 0.7-1.1 cm LA Diam: 2.70 2.7-3.8/3.0-4.0 cm LAIDs Index: 1.20 1.5-2.3 cm/m2 LV Mass: 136.99 67-162/88-224 g LV Mass Index: 60.88 43-95/49-115 g/m2 LVOT Diam: 2.10 3.0+(-)1.3 cm 2D Systolic Function EF 4C: 54.70 >55% EF 2C: 59.50 >55% EF BiP: 59.00 >55% Mitral Valve MV Pk E: 0.55 MV PK A: 0.71 MV Decel Time: 245.00 E/A: 0.80 E'Lateral: 10.30 E'Medial: 5.98 E/E' Med: 9.20 E/E' Lat: 5.40 PHT: 72.00 MVA PHT: 3.06 Decel Ingham: 2.26 Aortic Valve AoV Pk Eugenio: 2.11 AoV Mn Eugenio: 1.59 AoV VTI: 0.43 AoV Pk Grad: 18.00 Aov Mn Grad: 11.00 JOVON Cont.VTI: 1.26 LVOT LVOT Pk Eugenio: 0.74 LVOT Mn Eugenio: 0.53 LVOT VTI: 0.16 LVOT Pk Grad: 2.00 LVOT Mn Grad: 1.00 LVOT Diam: 2.10 LVOT Area: 3.46 Diastolic Function MV Pk E: 0.55 MV Pk A: 0.71 E/A: 0.80 E'Medial: 5.98 E/E' Med: 9.20 E' Laterial: 10.30 E/E' Lat: 5.40 Right Ventricle TAPSE (mm): 16.50 TVS' Eugenio: 9.25 Tricuspid Valve TR Pk Eugenio: 1.60 TR Pk Grad: 10.00 RA Press: 15.00 RVSP: 25.00 Great Vessels Aorta Ao Asc: 4.20 2.1-3.4 cm Ao Arch: 3.70 Pulmonary Valve PV Pk Eugenio: 0.99 Peak PV Grad: 4.00 Updated in Other Vendor System with Status of Final Jean Pierre Marie MD electronically signed on 05/12/2023 4:12:44 PM with status of Final
== END ==
LOC: HO.CARD 12:31
PROVIDERS: PCP Internal Medicine; Visit Provider Internal Medicine Cardiovascular Disease
DX: I77.89 Other specified disorders of arteries and arterioles (principal); Z95.2 Presence of prosthetic heart valve
CPT/HCPCS: 93306; Q9957

== ENCOUNTER → 2023-05-12 12:34 | Outpatient (BNV) | payer MEDICAID, SELFPAY | PROVIDERS: PCP Internal Medicine; Visit Provider Internal Medicine Cardiovascular Disease | DX: R94.31 Abnormal electrocardiogram [ECG] [EKG] (principal); I77.810 Thoracic aortic ectasia | CPT/HCPCS: 93306 ==

== ENCOUNTER 2023-07-21 12:23 | Outpatient (AMB) | payer MEDICAID, SELFPAY ==
[2023-07-21 12:50] VITALS: BP 100/66; PULSE 82; BMI 35.8
--- NOTE | 2023-07-21 12:50 | MHC.OFFVIS ---
Intake Vital Signs 07/21/23 12:50 Height 5 ft 8 in Weight 235 lb 10.786 oz BMI 35.8 BP 100/66 Blood Pressure Location Lt brachial Position Sitting Pulse 82 Pulse Source Pulse Oximeter Intake Visit Reasons: f/u Type 2 DM Intake Note: Patient present today to follow up on Type 2 Diabetes Mellitus. 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 Random Glucose: 148 mg/dl HgA1C: 9.7% Credentialing Manager Required: Yes Credentialing Manager Language: Title Insurance Agent Name: Karen medical staff Information Interpreted: non-clinical & clinical Accompanied by: Self / Same As Patient Allergies insulin glargine [From [employer] U-300 SoloStar] Allergy (Intermediate, Verified 07/21/23 12:56) itching Medication List - Last Reconciled 07/21/23 by Ahmet Fletcher MD blood sugar diagnostic (FreeStyle Lite Strips) 1 strip miscellaneous TID blood-glucose meter (FreeStyle Lite Meter kit) As directed carvedilol 12.5 mg PO BID empagliflozin (Jardiance) 25 mg PO QAM flash glucose scanning reader (FreeStyle Yahaira 2 [place]) As directed flash glucose sensor (FreeStyle Yahaira 2 Sensor kit) As directed every 2 weeks insulin degludec (Tresiba FlexTouch U-200 insulin) 64 units (0.32 mL) subcut BEDTIME 30 days insulin lispro 12 - 14 units (0.12 - 0.14 mL) subcut TID lancets (FreeStyle Lancets) As directed three time a day omeprazole 20 mg PO DAILY pen needle, diabetic (BD Ultra-Fine Gisella Pen Needle) As directed four times a day valsartan 80 mg PO BID HPI HPI Comments History of Present Illness Details Patient is a 63 yo male with DM type 2 diagnosed about 10 years ago who presents for the management of diabetes. Past medical history includes : asthma, CAD, HLD, sleep apnea Micro and macrovascular complications: + neuropathy, + CAD Diabetes medications: Tresiba 82 units, insulin lispro 12-16 units prior to meals, metformin ER 500 1 pills twice daily stopped because of GI cramping , Trulicity 3.0 mg/week not taking because of diarrhea . Jardiance 25mg daily taking Blood glucose monitoring: Yahaira download shows he is using the sensor 74% of the time. Average glucose is 182 with G mi of 7.7% and variability 28.5%. 54% range with 46% hyperglycemia and no hypoglycemia. Pattern shows decreasing blood sugars overnight but increases after breakfast and after lunch Symptoms reported: + numbness/tingling in legs, occasional cramping. Reports burning on lateral aspect of left foot. Hypoglycemia: denies Hyperglycemia: reports polyuria, nocturia once a night, reports polydypsia Exercise: walk 1/2 hour most days. Eye exam: saw 5 mos a go , reports no retinopathy Labs received from [facility] dated 07/01/2021: Glucose 234 Creatinine 0.8 Estimated GFR 96 A1c 11.8% Cholesterol 140 HDL 40 Triglycerides 149 LDL 75 Laboratory Tests 11/12/21 13:12 Hgb A1c (Clinic) 10.1 H 01/14/21 01/14/21 01/14/21 08:12 08:12 08:12 Creatinine 0.81 Estimated GFR > 60 Hemoglobin A1c % Triglycerides 154 Cholesterol 132 LDL Cholesterol Di rect 70 LDL Cholesterol, C alc 71 HDL Cholesterol 31 Microalb/Creat Rat io 9.2 01/14/21 08:12 Creatinine Estimated GFR Hemoglobin A1c % 10.0 Triglycerides Cholesterol LDL Cholesterol Di rect LDL Cholesterol, C alc HDL Cholesterol Microalb/Creat Rat io [facility] Medical History History of cardiomyopathy Prosthetic valve dysfunction BMI 39.0-39.9,adult Cardiomyopathy TAMARA (obstructive sleep apnea) Opioid dependence Hypogonadism Polyarthropathy Erectile dysfunction Nephrolithiasis Depression Esophageal reflux Arthritis Asthma Hyperlipidemia LDL goal <70 Obesity due to excess calories Essential hypertension Type 2 diabetes mellitus with diabetic neuropathy, unspecified Surgical History History of heart valve replacement Hx of umbilical hernia repair Family History Father Heart disease CVD (cardiovascular disease) Mother DM2 (diabetes mellitus, type 2) Social History Household Members: None Alcohol intake: current Alcohol intake frequency: does not drink Patient Tobacco Use Status: Former Tobacco user Current occupational status: disabled Physical Exam Vital Signs: Last Vital Signs Pulse 82 12/06/23 12:50 BP 100/66 07/21/23 12:50 BMI result Body Mass Index 35.8 Absence of Cushingoid features. Absence of acromegalic features. Neck exam reveals nl size thyroid about 15 gms. No thyroid nodules palpable. No carotid bruits present. Lungs CTA. Heart S1 S2, Reg R/R. No M/R/ G. Skin exam reveals absence of vitiligo or acanthosis nigricans. Abdominal exam reveals Soft NT/ND with NA BS. No organomegaly present. Neck Other: . Extrem Other: Visual exam of foot performed. No ulcerations or open lesions. No onchomycosis, no callouses.Pulses 2 + distally Sensation intact to monofilament exam. Vibratory sensation sensed is decreased with 128 Hz tuning fork Results Reviewed Results Reviewed: Laboratory Last Values Glucose (Clinic) 148 mg/dL (60-115) H 07/21/23 12:58 Assessment & Plan Assessment & Plan (1) Type 2 diabetes mellitus with diabetic neuropathy, unspecified: Code(s): E11.40 - Type 2 diabetes mellitus with diabetic neuropathy, unspecified Qualifiers: Diabetes mellitus nursing home insulin use: with ad terminal makeup operator use Qualified Code(s): E11.40 - Type 2 diabetes mellitus with diabetic neuropathy, unspecified; Z79.4 - terminal operator (current) use of insulin Plan: This 63-year-old male with a history of type 2 diabetes being treated with Jardiance and basal-bolus insulin with poor glycemic control and known microvascular and macrovascular complications namely coronary artery disease and neuropathy Plan is to start an alternative G LP 1 agonist namelyMounjaro k and titrate if tolerated. Told patient to report any hypoglycemia for insulin adjustment. Also asked patient to follow up with family living educator. Please note patient has tried and failed both Trulicity and Ozempic. Went over side effects of Mounjaro including but not limited to nausea, vomiting and rare risk of pancreatitis Mounjaro 2.5 mg samples given the patient. Lot number [id number] C expiration date 12/20/2024 Medications: New tirzepatide (Mounjaro) 2.5 mg (0.5 mL) subcut QWEEK 4 weeks 2 mL 0RF Coding Level of Care Code Est Pt Level 4 (21726) Diagnoses Type 2 diabetes mellitus with diabetic neuropathy, with long-term current use of insulin E11.40; Z79.4 Diabetes mellitus ad terminal makeup operator insulin use: with nursing home use
[2023-07-21 13:02] LABS: Glucose, Whole Blood 148 mg/dL (60-115)
== END 2023-07-21 13:21 | disposition home or self-care (01) ==
PROVIDERS: PCP Internal Medicine; Referring Provider Internal Medicine; Visit Provider Internal Medicine Endocrinology, Diabetes & Metabolism
DX: E11.40 Type 2 diabetes mellitus with diabetic neuropathy, unspecified (principal); Z79.4 Long term (current) use of insulin
CPT/HCPCS: 99214

== ENCOUNTER → 2023-07-21 12:23 | Outpatient (BNVA) | payer MEDICAID, SELFPAY | PROVIDERS: PCP Internal Medicine; Visit Provider Internal Medicine Endocrinology, Diabetes & Metabolism | DX: E11.40 Type 2 diabetes mellitus with diabetic neuropathy, unspecified (principal); Z79.4 Long term (current) use of insulin | CPT/HCPCS: 82947; 83036; 99212 ==

== ENCOUNTER 2023-11-09 14:48 | Outpatient (REF) | payer MEDICAID, SELFPAY ==
--- NOTE | ~2023-11-09 | XR_ITS ---
EXAMINATION: XR LUMBOSACRAL SPINE CLINICAL INFORMATION: Chronic midline low back pain COMPARISON: Lumbar spine 03/05/2020, MRI lumbar spine 06/10/2010 TECHNIQUE: Three views of the lumbosacral spine. FINDINGS: There are 5 nonrib-bearing lumbar-type vertebral bodies. The height of the lumbar vertebral bodies is well-maintained. There is mild anterior wedge compression of the T11 vertebral body. There is multilevel disc space narrowing in the lower thoracic spine. Large anterior marginal osteophytes at T12-L1. Anterior marginal ossified formation is also seen at L1-L2 and L2-L3. There is no significant disc space narrowing. No spondylolisthesis. XR/XR lumbar spine 2-3V IMPRESSION: Mild upper lumbar spine spondylolysis, most prominent at T12-L1 and L1-L2 levels.
--- NOTE | ~2023-11-09 | XR_ITS ---
EXAMINATION: XR HIP, RIGHT CLINICAL INFORMATION: Right hip pain COMPARISON: None available. TECHNIQUE: Two views of the right hip. FINDINGS: No fracture. Alignment is anatomic. Hip joint space is maintained. Soft tissues are unremarkable. XR/XR hip RT min 2V IMPRESSION: No bony abnormality.
--- NOTE | ~2023-11-09 | XR_ITS ---
EXAMINATION: XR HAND, RIGHT CLINICAL INFORMATION: Right hand pain for 2 months COMPARISON: None available. TECHNIQUE: PA, lateral, and oblique views of the right hand. FINDINGS: The bones are intact. No fracture. There is ulnar deviation of the metacarpals and ulnar deviation of the second through fifth phalanges. There is marked narrowing of the radiocarpal joint. There is marked narrowing of the first and third through fifth metacarpophalangeal joints. There is joint space narrowing and osteophyte formation at the DIP joints of the second and fifth finger and the PIP joint of the little finger. Small erosions are seen within the distal ulna, head of the first and second metacarpal and the middle phalanx of the index finger. XR/XR hand RT min 3V IMPRESSION: 1. Findings consistent with rheumatoid arthritis. 2. No acute bony abnormality.
== END 2023-11-09 14:49 | disposition home or self-care (01) ==
LOC: HO.HHCX 14:48
PROVIDERS: Visit Provider Internal Medicine
DX: M79.641 Pain in right hand (principal); M54.50 Low back pain, unspecified; G89.29 Other chronic pain
CPT/HCPCS: 36415; 72100; 73130; 73502; 84550; 85025; 85652; 86038; 86039; 86140

== ENCOUNTER 2023-11-09 15:16 | Outpatient (REF) | payer MEDICAID, SELFPAY ==
[2023-11-09 16:24] LABS: MANUAL DIFF FLAG NO
[2023-11-09 16:27] LABS: Basophils Absolute Auto 0.1 X10*3/uL (0.0-0.2); Basophils Percent Auto 0.7 % (0-2); Eosinophils Absolute Auto 0.3 X10*3/uL (0.0-0.4); Hematocrit 37.1 % (42.0-52.0); Imm Gran Abs Auto 0.02 X10*3/uL (0.00-0.03); Imm Gran Pct Auto 0.3 % (0.0-0.4); Lymphocytes Absolute Auto 2.5 X10*3/uL (1.2-4.9); Lymphocytes Percent Auto 32.5 % (20-40); Mean Corpuscular HGB Conc 32.3 g/dl (31.0-36.0); Mean Corpuscular Hemoglobin 27.7 pg (27.0-33.0); Mean Corpuscular Volume 85.7 fL (80.0-98.0); Mean Platelet Volume 9.4 fL (9.4-12.4); Monocytes Absolute Auto 0.5 X10*3/uL (0.1-1.2); Monocytes Percent Auto 6.7 % (2-11); Neutrophils Absolute Auto 4.2 x10*3/uL (2.0-8.3); Neutrophils Percent Auto 55.8 % (45-73); Platelet Count 255 X10*3/uL (160-400); Red Blood Count 4.33 X10*6/uL (4.60-5.80); Red Cell Distribution Width 14.1 % (11.0-16.0); White Blood Count 7.6 X10*3/uL (4.8-10.8)
[2023-11-09 17:12] LABS: Erythrocyte Sedimentation Rate 18 MM/HR (0-15)
[2023-11-15 12:03] LABS: Anti Nuclear Antibody Screen POSITIVE (NEGATIVE)
== END 2023-11-09 15:17 | disposition home or self-care (01) ==
LOC: HO.HHCL 15:16
PROVIDERS: Visit Provider Internal Medicine
DX: M54.50 Low back pain, unspecified (principal); M79.641 Pain in right hand; G89.29 Other chronic pain
CPT/HCPCS: 36415; 84550; 85025; 85652; 86038; 86039; 86140

== ENCOUNTER 2023-11-29 07:51 | Outpatient (REF) | payer MEDICAID, SELFPAY ==
[2023-11-29 09:07] LABS: Creatinine Urine 90.64 mg/dL; Microalbum/Creatinine Ratio Ur 7.7 ug/mg cr (<30)
[2023-11-29 09:11] LABS: Anion Gap 13 (12-20); Blood Urea Nitrogen 17 mg/dL (9-16); Calcium 9.5 mg/dL (8.4-10.2); Carbon Dioxide 27 mmol/L (22-29); Chloride 101 mmol/L (96-108); Cholesterol 146 mg/dL (<200); Estimated Glomerular Filt Rate > 60; Glucose Random 144 mg/dL (60-115); HDL Cholesterol 35 mg/dL (>40); LDL Cholesterol Calculated 96 mg/dL (<100); Potassium 4.5 mmol/L (3.3-5.1); Sodium 136 mmol/L (135-145); Triglycerides 75 mg/dL (<150)
== END 2023-11-29 07:52 | disposition home or self-care (01) ==
LOC: HO.LAB 07:51
PROVIDERS: PCP Internal Medicine; Visit Provider Internal Medicine Endocrinology, Diabetes & Metabolism
DX: E11.40 Type 2 diabetes mellitus with diabetic neuropathy, unspecified (principal)
CPT/HCPCS: 36415; 80048; 80061; 82043; 82570

== ENCOUNTER 2023-11-30 13:19 | Outpatient (AMB) | payer MEDICAID, SELFPAY ==
--- NOTE | 2023-11-30 13:30 | A.OFFVIS_ITS ---
Intake Vital Signs 11/30/23 13:32 Height 5 ft 8 in Weight 219 lb 9.286 oz BMI 33.4 BP 118/80 Blood Pressure Location Lt brachial Position Sitting Pulse 83 Pulse Source Pulse Oximeter Intake Visit Reasons: f/u Type 2 DM-confirmed Intake Note: Patient present today to follow up on Type 2 Diabetes Mellitus. Patient receives DME supplies through: Pharmacy Last Diabetic Eye exam: 03/2023 Last Podiatry Visit: Doesn't have one Random Glucose: 140 mg/dl HgA1C: 8.5% Coding Advisor Required: Yes Coding Advisor Language: Gambling Box Person Name: Karen medical staff Information Interpreted: non-clinical & clinical Accompanied by: Self / Same As Patient Allergies insulin glargine [From [employer] U-300 SoloStar] Allergy (Intermediate, Verified 11/30/23 13:35) itching HPI HPI Comments History of Present Illness Details Patient is a 63 yo male with DM type 2 diagnosed about 10 years ago who presents for the management of diabetes. Past medical history includes : asthma, CAD, HLD, sleep apnea Micro and macrovascular complications: + neuropathy, + CAD Diabetes medications: Tresiba 82 units, insulin lispro 12-16 units prior to me als, metformin ER 500 1 pills twice daily stopped because of GI cramping , Mounjaro 2.5 mg Qwkly . Jardiance 25mg daily not taking Blood glucose monitoring: Yahaira download shows he is using the sensor 73% of the time. Average glucose is 141 with G mi of 6.7% and variability 20%. 90% range with 10% hyperglycemia and no hypoglycemia. Pattern shows decreasing blood sugars overnight but increases after breakfast and after lunch Symptoms reported: + numbness/tingling in legs, occasional cramping. Reports burning on lateral aspect of left foot. Hypoglycemia: was having lows prior to stopping Jardiance Hyperglycemia: reports polyuria, nocturia once a night, reports polydypsia Exercise: walk 1/2 hour most days. Eye exam: needs to make appt , reports no retinopathy Labs received from [employer] dated 07/01/2021: Glucose 234 Creatinine 0.8 Estimated GFR 96 A1c 11.8% Cholesterol 140 HDL 40 Triglycerides 149 LDL 75 Laboratory Tests 11/12/21 13:12 Hgb A1c (Clinic) 10.1 H 01/14/21 01/14/21 01/14/21 08:12 08:12 08:12 Creatinine 0.81 Estimated GFR > 60 Hemoglobin A1c % Triglycerides 154 Cholesterol 132 LDL Cholesterol Di rect 70 LDL Cholesterol, C alc 71 HDL Cholesterol 31 Microalb/Creat Rat io 9.2 01/14/21 08:12 Creatinine Estimated GFR Hemoglobin A1c % 10.0 Triglycerides Cholesterol LDL Cholesterol Di rect LDL Cholesterol, C alc HDL Cholesterol Microalb/Creat Rat io [facility] Medical History History of cardiomyopathy Prosthetic valve dysfunction BMI 39.0-39.9,adult Cardiomyopathy TAMARA (obstructive sleep apnea) Opioid dependence Hypogonadism Polyarthropathy Erectile dysfunction Nephrolithiasis Depression Esophageal reflux Arthritis Asthma Hyperlipidemia LDL goal <70 Obesity due to excess calories Essential hypertension Type 2 diabetes mellitus with diabetic neuropathy, unspecified Surgical History History of heart valve replacement Hx of umbilical hernia repair Family History Father Heart disease CVD (cardiovascular disease) Mother DM2 (diabetes mellitus, type 2) Social History Household Members: None Alcohol intake: current Alcohol intake frequency: does not drink Patient Tobacco Use Status: Former Tobacco user Current occupational status: disabled Physical Exam Vital Signs: Last Vital Signs Pulse 83 11/30/23 13:32 BP 118/80 11/30/23 13:32 BMI result Body Mass Index 33.4 Absence of Cushingoid features. Absence of acromegalic features. Neck exam reveals nl size thyroid about 15 gms. No thyroid nodules palpable. No carotid bruits present. Lungs CTA. Heart S1 S2, Reg R/R. No M/R/ G. Skin exam reveals absence of vitiligo or acanthosis nigricans. Abdominal exam reveals Soft NT/ND with NA BS. No organomegaly present. Neck Other: . Extrem Other: Visual exam of foot performed. No ulcerations or open lesions. No onchomycosis, no callouses.Pulses 2 + distally Sensation intact to monofilament exam. Vibratory sensation sensed is decreased with 128 Hz tuning fork Results AMB Hemoglobin A1c AMB Hemoglobin A1c 8.5 % Last Edit by VIVIANE Cr on 11/30/23 13:49 Results Reviewed Results Reviewed: Laboratory Last Values Glucose (Clinic) 140 mg/dL (60-115) H 11/30/23 13:38 Hgb A1c (Clinic) 8.5 % (4.0-6.0) H 11/30/23 13:41 Assessment & Plan Assessment & Plan (1) Type 2 diabetes mellitus with diabetic neuropathy, unspecified: Code(s): E11.40 - Type 2 diabetes mellitus with diabetic neuropathy, unspecified Qualifiers: Diabetes mellitus intermodal customer service insulin use: with intermodal customer service use Qualified Code(s): E11.40 - Type 2 diabetes mellitus with diabetic neuropathy, unspecified; Z79.4 - long-term (current) use of insulin Plan: This 63-year-old male with a history of type 2 diabetes being treated with Mounjaro Jardiance and basal-bolus insulin with improved excellent glycemic control and known microvascular and macrovascular complications namely coronary artery disease and neuropathy. His A1c which reflects three-month control is worse than his or recent control the last 2 weeks based on Yahaira findings Plan is to have the patient resume the Jardiance and to bring his Yahaira for download if he experiences any hypoglycemia select the insulin regimen can be adjusted. 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
[2023-11-30 13:32] VITALS: BP 118/80; PULSE 83; BMI 33.4
[2023-11-30 13:42] LABS: Glucose, Whole Blood 140 mg/dL (60-115)
== END 2023-11-30 14:11 | disposition home or self-care (01) ==
LOC: HO.ENCR 13:19
PROVIDERS: PCP Internal Medicine; Referring Provider Internal Medicine; Visit Provider Internal Medicine Endocrinology, Diabetes & Metabolism
DX: Z13.9 Encounter for screening, unspecified (principal); E11.40 Type 2 diabetes mellitus with diabetic neuropathy, unspecified; Z79.4 Long term (current) use of insulin
CPT/HCPCS: 99214

== ENCOUNTER → 2023-11-30 13:19 | Outpatient (BNVA) | payer MEDICAID, SELFPAY | PROVIDERS: PCP Internal Medicine; Visit Provider Internal Medicine Endocrinology, Diabetes & Metabolism | DX: E11.40 Type 2 diabetes mellitus with diabetic neuropathy, unspecified (principal); Z79.4 Long term (current) use of insulin | CPT/HCPCS: 82947; 83036; 99212 ==

== ENCOUNTER 2024-02-22 16:01 | Outpatient (REF) | payer MEDICAID, SELFPAY ==
--- NOTE | ~2024-02-22 | XR_ITS ---
EXAMINATION: XR RIBS, LEFT CLINICAL INFORMATION: Left-sided pain. Injury. COMPARISON: None available. TECHNIQUE: Frontal view of chest 4 views of the left ribs were obtained. FINDINGS: Status post median sternotomy. Lungs are clear. No consolidation, pneumothorax, or pleural effusion. The cardiomediastinal silhouette and pulmonary vasculature are normal. Osseous structures are unremarkable. Ribs are intact. No fractures are identified. XR/XR ribs LT min 3V w CXR1V IMPRESSION: Unremarkable examination.
== END 2024-02-22 16:02 | disposition home or self-care (01) ==
LOC: HO.HHCX 16:01
PROVIDERS: Visit Provider Nurse Practitioner Family
DX: R07.81 Pleurodynia (principal)
CPT/HCPCS: 71101

== ENCOUNTER 2024-03-30 12:27 | Outpatient (AMB) | payer MEDICAID, SELFPAY ==
--- NOTE | 2024-03-30 12:30 | A.OFFVIS_ITS ---
Vital Signs 03/30/24 12:35 Height 5 ft 8 in Weight 216 lb 0.848 oz BMI 32.8 BP 114/68 Blood Pressure Location Rt brachial Position Sitting Pulse 97 Pulse Source Pulse Oximeter Intake Visit Reasons: T2DM/CONFIRMED Intake Note: Patient presents today to re-establish treatment on Type 2 Diabetes Mellitus: Last Diabetic Eye exam: Has a coming up appt in July Patient receives DME supplies through: Pharmacy Last Podiatry Exam: Does not see a Engine Pilot Most recent HbA1c: 7.5%, 03/30/2024 Random Glucose- 137 mg/dL, Today Campus Executive Director Required: Yes Campus Executive Director Language: Branch Lending Manager Services: Campus Executive Director Present Campus Executive Director Name: VIVIANE Manley/MICHAEL GUERRA Accompanied by: Self / Same As Patient Allergies insulin glargine [From [employer] U-300 SoloStar] Allergy (Intermediate, Verified 03/30/24 12:31) itching HPI Comments Details: Patient is a 63 yo male with DM type 2 diagnosed about 10 years ago who presents for the management of diabetes. He was last seen by Dr. Fletcher 12/07 and recently seen by Janneth KUNZ for general DM education. A1C in the office today is 7.5% down from 8.5%. A1C's have been progressively decreasing over the past year. Past medical history includes : asthma, CAD, HLD, sleep apnea Micro and macrovascular complications: + neuropathy, + CAD He is intolerant to metformin due to GI cramping Diabetes medications: Tresiba 82 units daily lispro 8-12 units units prior to meals Mounjaro 5.0 mg Qwkly Jardiance 25mg daily He did not bring in his [employer] Sensor today in the office but reports he is running: in good range with no lows Symptoms reported: + numbness/tingling in legs, occasional cramping. Hypoglycemia: no lows Hyperglycemia: no symptoms LDL 97 12/07 He is not on a statin. He is on an ARB eGFR 60 microalbumin 7.0 Does not carry a sugar source Exercise: walk 1/2 hour most days. Eye exam: needs to make appt, reports no retinopathy one year ago LDL 75 PFSH Medical History History of cardiomyopathy Prosthetic valve dysfunction BMI 39.0-39.9,adult Cardiomyopathy TAMARA (obstructive sleep apnea) Opioid dependence Hypogonadism Polyarthropathy Erectile dysfunction Nephrolithiasis Depression Esophageal reflux Arthritis Asthma Hyperlipidemia LDL goal <70 Obesity due to excess calories Essential hypertension Type 2 diabetes mellitus with diabetic neuropathy, unspecified Surgical History History of heart valve replacement Hx of umbilical hernia repair Family History Father Heart disease CVD (cardiovascular disease) Mother DM2 (diabetes mellitus, type 2) Social History Household Members: None Alcohol intake: current Alcohol intake frequency: does not drink Patient Tobacco Use Status: Former Tobacco user Current occupational status: disabled Physical Exam Vital Signs: Last Vital Signs Pulse 97 03/30/24 12:35 BP 114/68 03/30/24 12:35 BMI result Body Mass Index 32.8 Const Other: Absence of Cushingoid features. Absence of acromegalic features. Neck exam reveals nl size thyroid about 15 gms. No thyroid nodules palpable. Heart S1 S2, Reg R/R. No M/R G. Skin exam reveals absence of vitiligo or acanthosis nigricans. No edema Extrem Other: Visual exam of foot performed. No ulcerations or open lesions. No interdigit fissuring or maceration. No onchomycosis, no callouses. Sensation intact to monofilament exam. Vibratory sensation is normal with 128 Hz tuning fork. Results AMB Hemoglobin A1c AMB Hemoglobin A1c 7.5 % Last Edit by VIVIANE Manley on 03/30/24 12:49 Results Reviewed Results Reviewed: Laboratory Last Values Glucose (Clinic) 137 mg/dL (60-115) H 03/30/24 12:40 Hgb A1c (Clinic) 7.5 % (4.0-6.0) H 03/30/24 12:32 Laboratory Tests 07/21/23 11/09/23 11/29/23 15:21 15:18 08:03 Plt Count 255 Potassium Creatinine Estimated GFR Hgb A1c (Clinic) 9.7 H Triglycerides Cholesterol LDL Cholesterol, Calc HDL Cholesterol Urine Creatinine 90.64 Urine Microalbumin 7.0 Microalb/Creat Ratio 7.7 11/29/23 11/30/23 08:05 13:41 Plt Count Potassium 4.5 Creatinine 0.81 Estimated GFR > 60 Hgb A1c (Clinic) 8.5 H Triglycerides 75 Cholesterol 146 LDL Cholesterol, Calc 96 HDL Cholesterol 35 L Urine Creatinine Urine Microalbumin Microalb/Creat Ratio Assessment & Plan Assessment & Plan (1) Type 2 diabetes mellitus with diabetic neuropathy, unspecified: Code(s): E11.40 - Type 2 diabetes mellitus with diabetic neuropathy, unspecified Category: Medical Qualifiers: Diabetes mellitus long chain quiller tender insulin use: with long-term use Qualified Code(s): E11.40 - Type 2 diabetes mellitus with diabetic neuropathy, unspecified; Z79.4 - 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 He has lost 3 lb since his last visit he has lost 3 lb since his last visit in his following a balanced diet. A new prescription for Mounjaro 7.5 mg. Was given to be started he was advised to closely follow his sugar and can reduce the amount of bolus insulin if needed. He will continue to exercise daily. He has an ophthalmology visit scheduled and I have given him a form to have his provider send back his eye exam results. An ZEHRA was ordered per [place] [employer] recommendations. 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 Continue to repeat every 15 minutes until blood sugar is normal. The patient was counseled to achieve a target A1C of 7% (154 avg). Fasting blood sugars should be 90-130 in the morning and less than 180 two hours after meals. Reviewed the relationship between poor diabetic control and the developement of complications Coding Level of Care Code Est Pt Level 4 (55410) Diagnoses Type 2 diabetes mellitus with diabetic neuropathy, with long-term current use of insulin E11.40; Z79.4 Diabetes mellitus long-term insulin use: with long chain quiller tender use Time Spent (min) 30 Comment Time spent reviewing labs/provider notes, face to face, chart doc
[2024-03-30 12:35] VITALS: BP 114/68; PULSE 97; BMI 32.8
[2024-03-30 12:44] LABS: Glucose, Whole Blood 137 mg/dL (60-115)
== END 2024-03-30 13:14 | disposition home or self-care (01) ==
PROVIDERS: PCP Internal Medicine; Visit Provider Nurse Practitioner Adult Health
DX: E11.40 Type 2 diabetes mellitus with diabetic neuropathy, unspecified (principal); Z79.4 Long term (current) use of insulin
CPT/HCPCS: 99214

== ENCOUNTER → 2024-03-30 12:27 | Outpatient (BNVA) | payer MEDICAID, SELFPAY | PROVIDERS: PCP Internal Medicine; Visit Provider Nurse Practitioner Adult Health | DX: E11.40 Type 2 diabetes mellitus with diabetic neuropathy, unspecified (principal); Z79.4 Long term (current) use of insulin | CPT/HCPCS: 82947; 83036; 99212 ==

== ENCOUNTER 2024-05-15 | Outpatient (REF) | payer MEDICAID, SELFPAY | END 2024-05-15 00:01 | disposition home or self-care (01) | LOC: CF | PROVIDERS: PCP Internal Medicine; Visit Provider Nurse Practitioner Family | DX: I77.89 Other specified disorders of arteries and arterioles (principal); I10 Essential (primary) hypertension; E78.5 Hyperlipidemia, unspecified; Z86.79 Personal history of other diseases of the circulatory system; T82.09XA Other mechanical complication of heart valve prosthesis, initial encounter; Z95.2 Presence of prosthetic heart valve | CPT/HCPCS: 93005; 99212 ==

== ENCOUNTER 2024-05-15 13:07 | Outpatient (AMB) | payer MEDICAID, SELFPAY ==
[2024-05-15 13:56] VITALS: BP 114/72; PULSE 74; BMI 33.2
--- NOTE | 2024-05-15 13:56 | MHC.OFFVIS ---
Vital Signs 05/15/24 13:56 Height 5 ft 8 in Weight 218 lb 11.177 oz BMI 33.2 BP 114/72 Blood Pressure Location Lt brachial Position Sitting Pulse 74 Pulse Source Monitor Intake Visit Reasons: 1 yr f/up-NS pt Electric Detector Operator Required: Yes Electric Detector Operator Language: Obstetrics Gyn Name: philip monique [id number] Allergies insulin glargine [From [employer] U-300 SoloStar] Allergy (Intermediate, Verified 05/15/24 13:59) itching Medication List - Last Reconciled 05/15/24 by ALEJANDRO Centeno aspirin 81 mg PO DAILY baclofen mg PO blood sugar diagnostic (FreeStyle Lite Strips) 1 strip miscellaneous TID blood-glucose meter (FreeStyle Lite Meter kit) As directed buprenorphine-naloxone 8-2 mg (Suboxone) 1 film sublingual DAILY carvedilol 12.5 mg PO BID empagliflozin (Jardiance) 25 mg PO QAM flash glucose scanning reader ([employer] GroupStyle Yahaira 2 [place]) As directed flash glucose sensor ([employer] Yahaira 2 Sensor kit) USE DIRECTED EVERY 2 WEEKS insulin degludec (Tresiba FlexTouch U-200 insulin) 64 units (0.32 mL) subcut BEDTIME 30 days insulin lispro 12 - 14 units (0.12 - 0.14 mL) subcut TID lancets (FreeStyle Lancets) As directed three time a day omeprazole 20 mg PO DAILY pen needle, diabetic (BD Ultra-Fine Gisella Pen Needle) As directed four times a day tirzepatide (Mounjaro) 7.5 mg (0.5 mL) subcut QWEEK 30 days valsartan 80 mg PO BID HPI HPI 1 yr f/up-NS pt: Details: Nemesio is a 63-year-old male past medical history of hypertension, hyperlipidemia, diabetes, obesity, sleep apnea, not using CPAP, cardiomyopathy, bioprosthetic AVR who presents for follow-up. Today he reports that he has been doing well with no concerning symptoms. He says he is not able to sleep with his CPAP because it causes him congestion. Does admit to some daytime fatigue. No chest discomfort at rest or with activity. No concerning shortness of breath, PND, orthopnea or edema. No lightheadedness, presyncope, syncope, falls. Taking meds as directed. Walks routinely for exercise. [facility] Medical History History of cardiomyopathy Prosthetic valve dysfunction BMI 39.0-39.9,adult Cardiomyopathy TAMARA (obstructive sleep apnea) Opioid dependence Hypogonadism Polyarthropathy Erectile dysfunction Nephrolithiasis Depression Esophageal reflux Arthritis Asthma Hyperlipidemia LDL goal <70 Obesity due to excess calories Essential hypertension Type 2 diabetes mellitus with diabetic neuropathy, unspecified Surgical History History of heart valve replacement Hx of umbilical hernia repair Family History Father Heart disease CVD (cardiovascular disease) Mother DM2 (diabetes mellitus, type 2) Social History Household Members: None Alcohol intake: current Alcohol intake frequency: does not drink Patient Tobacco Use Status: Former Tobacco user Current occupational status: disabled Review of Systems Const All systems reviewed & are unremarkable except as noted in HPI and below ENT Denies dizziness Card Denies chest pain, Denies chest pain at rest, Denies chest pain with activity, Denies rapid heart rate, Denies pedal edema, Denies edema, Denies leg edema, Denies lightheadedness, Denies palpitations, Denies dyspnea, Denies dyspnea on exertion and Denies orthopnea Resp Denies cough, Denies dyspnea and Denies dyspnea on exertion GI Denies hematochezia and Denies change in stool character Musc Denies abnormal gait, Denies limited range of motion, Denies muscle cramps, Denies muscle weakness, Denies numbness, Denies radiating pain into limb, Denies stiffness and Denies tingling Neuro Denies abnormal gait, Denies dizziness, Denies numbness and Denies tingling Endo Denies palpitations Physical Exam Vital Signs: Last Vital Signs Pulse 74 05/15/24 13:56 BP 114/72 05/15/24 13:56 BMI result Body Mass Index 33.2 Const General: cooperative, healthy appearing, comfortable and no acute distress Orientation/consciousness: patient oriented x3 Neck Neck: Yes normal visual inspection Resp Effort & Inspection: normal respiratory effort Auscultation: clear to auscultation bilaterally, no crackles, no rales, no rhonchi and no wheezes Cardio Rate: regular rate Rhythm: regular rhythm Heart sounds: S1 normal heart sound present, S2 normal heart sound present, no murmurs and no rubs Neuro General: patient oriented x3 Extrem General: Yes normal to inspection, No no pedal edema and No calf tenderness Psych Appearance: grossly normal Mental Status: mental status grossly normal Speech and movement: Normal speech and movement present Office Procedures EKG Details: Today, read by me, sinus rhythm with first-degree AV block, PACs, T-wave abnormality lead 1 and aVL, unchanged from prior, rate 74, QTC 468 milliseconds [id number], Complete Assessment & Plan Assessment & Plan (1) Status post aortic valve replacement: Code(s): Z95.2 - Presence of prosthetic heart valve Category: Surgical Plan: History of aortic stenosis, status post bioprosthetic AVR. Last echo done 05/12/2023 shows EF 55-60%, normally functioning bioprosthetic AVR with mean gradient 11 mmHg, ascending aorta 4.2 cm. Will plan for echo prior to next visit. Endocarditis prophylaxis prior to dental work. Continue aspirin. Cardiology follow-up in 1 year. (2) Prosthetic valve dysfunction: Comment: Secondary to patient prosthesis mismatch. Mean gradient of 21 mm Hg post surgical at baseline. Code(s): T82.09XA - Other mechanical complication of heart valve prosthesis, initial encounter Category: Medical Plan: As above (3) History of cardiomyopathy: Comment: Improved after aortic valve replacement with last LVEF of 50-55% Code(s): Z86.79 - Personal history of other diseases of the circulatory system Category: Medical Plan: History of cardiomyopathy. EF improved following aortic valve replacement and neurohormonal modulation. Most recent EF 55-60%. No signs of heart failure on examination. Continue valsartan, carvedilol, Jardiance. He has CPAP says he is not able to wear it as it causes him congestion. Instructed to wear CPAP as much as tolerated. Can discuss further with his PCP/Pulmonary provider if needed. Continue physical activity as tolerated, weight loss recommended. (4) Essential hypertension: Code(s): I10 - Essential (primary) hypertension Category: Medical Plan: Well controlled at this time. No medication changes have been made. (5) Hyperlipidemia LDL goal <70: Code(s): E78.5 - Hyperlipidemia, unspecified Category: Medical Plan: [place] LDL goal less than 70 in patient with diabetes. Is not on statin therapy for unclear reason. Labs done 11/29/2023 had shown LDL 96. Recommend use of statin as long as no clear contraindication. Will forward this to his PCP. (6) Enlarged thoracic aorta: Code(s): I77.89 - Other specified disorders of arteries and arterioles Category: Medical Plan: Ascending aorta dilated at 4.2 cm on most recent echocardiogram. This was unchanged from echocardiogram done 07/25/2021. Planning for repeat echo prior to his next visit, 04/2025. Plan Time spent on chart review, documentation, interview and assessment Orders: Orders CA echo transthoracic complete 11 Months I77.89 - Other specified disorders of arteries and arterioles, T82.09XA - Other mechanical complication of heart valve prosthesis, initial encounter, Z86.79 - Personal history of other diseases of the circulatory system Coding Level of Care Code Est Pt Level 4 (68857) Diagnoses Status post aortic valve replacement Z95.2 Prosthetic valve dysfunction T82.09XA History of cardiomyopathy Z86.79 Essential hypertension I10 Hyperlipidemia LDL goal <70 E78.5 Enlarged thoracic aorta I77.89 CPT Codes EKG - CPT: 29720-[id number], Complete ([id number]) Time Spent (min) 28
== END 2024-05-15 14:41 | disposition home or self-care (01) ==
PROVIDERS: PCP Internal Medicine; Visit Provider Nurse Practitioner Family
DX: Z95.2 Presence of prosthetic heart valve (principal); T82.09XA Other mechanical complication of heart valve prosthesis, initial encounter; Z86.79 Personal history of other diseases of the circulatory system; I10 Essential (primary) hypertension; E78.5 Hyperlipidemia, unspecified; I77.89 Other specified disorders of arteries and arterioles
CPT/HCPCS: 93010; 99214

== ENCOUNTER 2024-05-17 10:49 | Outpatient (AMB) | payer MEDICAID, SELFPAY ==
--- NOTE | 2024-05-17 10:53 | MHC.OFFVIS ---
Vital Signs 05/17/24 10:58 Height 5 ft 8 in Weight 218 lb 11.177 oz BMI 33.2 BP 112/62 Blood Pressure Location Rt brachial Position Sitting Pulse 80 Pulse Source Pulse Oximeter Pulse Oximetry (%) 97 Oxygen Delivery Method Room Air Intake Visit Reasons: +MILTON Intake Note: Patient presents for +MILTON. Feeling pain in lower back, right knee and both legs. I been feeling pain for 2 year. I take Motrin for pain but it doesn't work. Naval Inspector Required: Yes Naval Inspector Language: Medical Interpreter Services: Naval Inspector Present Naval Inspector Name: Erica [id number] Information Interpreted: non-clinical & clinical Allergies insulin glargine [From [employer]Food[employer] Max U-300 SoloStar] Allergy (Intermediate, Verified 05/17/24 10:58) itching Medication List - Last Reconciled 05/17/24 by Anuja Gonsalez MD aspirin 81 mg PO DAILY baclofen mg PO blood sugar diagnostic (FreeStyle Lite Strips) 1 strip miscellaneous TID blood-glucose meter (FreeStyle Lite Meter kit) As directed buprenorphine-naloxone 8-2 mg (Suboxone) 1 film sublingual DAILY carvedilol 12.5 mg PO BID empagliflozin (Jardiance) 25 mg PO QAM flash glucose scanning reader (FreeStyle Yahaira 2 [place]) As directed flash glucose sensor (FreeStyle Yahaira 2 Sensor kit) USE DIRECTED EVERY 2 WEEKS insulin degludec (Tresiba FlexTouch U-200 insulin) 64 units (0.32 mL) subcut BEDTIME 30 days insulin lispro 12 - 14 units (0.12 - 0.14 mL) subcut TID lancets (FreeStyle Lancets) As directed three time a day omeprazole 20 mg PO DAILY pen needle, diabetic (BD Ultra-Fine Gisella Pen Needle) As directed four times a day tirzepatide (Mounjaro) 7.5 mg (0.5 mL) subcut QWEEK 30 days valsartan 80 mg PO BID HPI Comments Details: This is a 63-year-old male who presents for evaluation of a positive MILTON in the setting of diffuse pain. He states that he has low back pain that intermittently radiates down his lower extremities. He states that he was evaluated by mixing machine tender cork rod in the past and was told that he may have rheumatoid arthritis. He states that he was prescribed Motrin. States that it does not help much. He states that he has morning stiffness of his low back, and hands that lasts 20-30 minutes. 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 States that his hands may swell about once a year. Has lost a few inches over the years. States that he has a sister with osteoporosis. [facility] Medical History History of cardiomyopathy Prosthetic valve dysfunction BMI 39.0-39.9,adult Cardiomyopathy TAMARA (obstructive sleep apnea) Opioid dependence Hypogonadism Polyarthropathy Erectile dysfunction Nephrolithiasis Depression Esophageal reflux Arthritis Asthma Hyperlipidemia LDL goal <70 Obesity due to excess calories Essential hypertension Type 2 diabetes mellitus with diabetic neuropathy, unspecified Surgical History History of heart valve replacement Hx of umbilical hernia repair Family History Father Heart disease CVD (cardiovascular disease) Mother DM2 (diabetes mellitus, type 2) Social History Household Members: None Alcohol intake: current Alcohol intake frequency: does not drink Patient Tobacco Use Status: Former Tobacco user Current occupational status: disabled Review of Systems [facility] Reports back pain, Reports arthralgias, Reports radiating pain into limb and Reports stiffness Physical Exam Vital Signs: Last Vital Signs Pulse 80 05/17/24 10:58 BP 112/62 05/17/24 10:58 Pulse Ox 97 05/17/24 10:58 Oxygen Delivery Method Room Air 05/17/24 10:58 BMI result Body Mass Index 33.2 Const General: cooperative, healthy appearing and comfortable Nutritional Appearance: obese Orientation/consciousness: patient oriented x3 Limitations: no limitations HEENT Head: Yes normocephalic and Yes atraumatic Mouth: moist mucous membranes Resp Effort & Inspection: normal respiratory effort and able to speak in complete sentences Auscultation: clear to auscultation bilaterally Cardio Rate: regular rate Rhythm: regular rhythm Skin General skin exam: no rashes or lesions noted Neuro General: patient oriented x3 Extrem Other: No swollen joints both hands and wrists Ulnar deviation at the MCPs bilaterally Flexion contracture of left little finger related to trauma Right 4th and 5th MCP tenderness without swelling Normal range of motion of elbows and shoulders without pain Negative straight leg raise test bilaterally Positive LIZETTE test on the right Left foot bunion No fibular deviation of toes Right 4th and 5th MTP tenderness Negative MTP squeeze test bilaterally Normal nailfold capillaroscopy Assessment & Plan Assessment & Plan (1) Hand deformities: Code(s): M21.949 - Unspecified acquired deformity of hand, unspecified hand Category: Medical Qualifiers: Laterality: unspecified laterality Qualified Code(s): M21.949 - Unspecified acquired deformity of hand, unspecified hand Plan: This is a 63-year-old male who presents for evaluation of positive MILTON in the setting of polyarthralgias. On exam patient has deformities suggestive of rheumatoid arthritis. Ulnar deviation at the MCPs. He states that born like this. He has generalized stiffness of his entire body including his hands that lasts 20-30 minutes daily. Denies any significant joint swelling. I reviewed his right hand x-ray. I will check further x-rays to establish a new baseline. Check bilateral hand and wrist ultrasound to evaluate for synovitis/tenosynovitis Check comprehensive serology Follow-up in about 6 weeks (2) Lumbar degenerative disc disease: Code(s): M51.369 - Other intervertebral disc degeneration, lumbar region without mention of lumbar back pain or lower extremity pain Category: Medical Qualifiers: Disc-related pain type: discogenic back pain and lower extremity pain Qualified Code(s): M51.362 - Other intervertebral disc degeneration, lumbar region with discogenic back pain and lower extremity pain Plan: Referred to PT Check SI joint x-rays (3) T12 compression fracture: Code(s): S22.080A - Wedge compression fracture of T11-T12 vertebra, initial encounter for closed fracture Category: Medical Plan: 3 inches height loss over the years. T12 compression fracture on x-ray. Sister with osteoporosis. I will check a DEXA scan (4) MILTON positive: Code(s): R76.8 - Other specified abnormal immunological findings in serum Category: Medical Plan: Check further sub serologies Plan I spent 62 minutes reviewing patient's chart, evaluating patient, ordering diagnostic workup, counseling patient and documenting in the chart Orders: Orders Comprehensive Met. Panel Today M06.9 - Rheumatoid arthritis, unspecified C Reactive Protein Today M06.9 - Rheumatoid arthritis, unspecified Erythrocyte Sedimentation Rate Today M06.9 - Rheumatoid arthritis, unspecified Hepatitis A,B,C Profile Today Z11.59 - Encounter for screening for other viral diseases Cyclic Citrullinated Peptide Today M06.9 - Rheumatoid arthritis, unspecified US extremity nonvascular Today M79.641 - Pain in right hand, M79.642 - Pain in left hand XR hand LT min 3V Today M25.9 - Joint disorder, unspecified XR foot LT min 3V Today M25.9 - Joint disorder, unspecified XR foot RT min 3V Today M25.9 - Joint disorder, unspecified HLA B27 Today M45.9 - Ankylosing spondylitis of unspecified sites in spine Collagen Type I C-Telopeptide Today M81.0 - Age-related osteoporosis without current pathological fracture Parathyroid Hormone Intact Today M81.0 - Age-related osteoporosis without current pathological fracture Protein Electrophoresis, Serum Today M81.0 - Age-related osteoporosis without current pathological fracture Anti Extractable Nuclear Ag Today M32.9 - Systemic lupus erythematosus, unspecified Anti DNA DS Antibody Today M32.9 - Systemic lupus erythematosus, unspecified Complement C3 Today M32.9 - Systemic lupus erythematosus, unspecified Complement C4 Today M32.9 - Systemic lupus erythematosus, unspecified Protein Creatinine Ratio, Ur Today M32.9 - Systemic lupus erythematosus, unspecified UA w Microscopic Today M32.9 - Systemic lupus erythematosus, unspecified Complete Blood Count Auto Diff Today M06.9 - Rheumatoid arthritis, unspecified T Spot TB Today Z11.7 - Encounter for testing for latent tuberculosis infection XR sacroiliac joint min 3V Today M25.9 - Joint disorder, unspecified XR DEXA axial skeleton Today M81.0 - Age-related osteoporosis without current pathological fracture Phosphorus Today M81.0 - Age-related osteoporosis without current pathological fracture TSH reflex Free T4 Today M81.0 - Age-related osteoporosis without current pathological fracture Vitamin D 25-OH Total Today E55.9 - Vitamin D deficiency, unspecified DNA Double Stranded-Crithidia Today M32.9 - Systemic lupus erythematosus, unspecified Sjogren's Antibodies Today M32.9 - Systemic lupus erythematosus, unspecified Referrals Pain Management Referral M54.16 - Radiculopathy, lumbar region Coding Level of Care Code New Pt New Pt Level 5 (82051) Patient Type New History Comprehensive Medical Decision Making High Complexity Diagnoses Deformity of hand, unspecified laterality M21.949 Laterality: unspecified laterality Degeneration of intervertebral disc of lumbar region with discogenic back pain and lower extremity pain M51.362 Disc-related pain type: discogenic back pain and lower extremity pain T12 compression fracture S22.080A MILTON positive R76.8
[2024-05-17 10:58] VITALS: BP 112/62; PULSE 80; O2SAT 97; BMI 33.2
== END 2024-05-17 11:37 | disposition home or self-care (01) ==
PROVIDERS: PCP Internal Medicine; Visit Provider Student in an Organized Health Care Education/Training Program
DX: M21.941 Unspecified acquired deformity of hand, right hand (principal); M51.362 Other intervertebral disc degeneration, lumbar region with discogenic back pain and lower extremity pain; S22.080A Wedge compression fracture of T11-T12 vertebra, initial encounter for closed fracture; R76.8 Other specified abnormal immunological findings in serum
CPT/HCPCS: 99205

== ENCOUNTER → 2024-05-17 10:49 | Outpatient (BNVA) | payer MEDICAID, SELFPAY | PROVIDERS: PCP Internal Medicine; Visit Provider Student in an Organized Health Care Education/Training Program | DX: R76.8 Other specified abnormal immunological findings in serum (principal); M21.949 Unspecified acquired deformity of hand, unspecified hand; M51.362 Other intervertebral disc degeneration, lumbar region with discogenic back pain and lower extremity pain; S22.080A Wedge compression fracture of T11-T12 vertebra, initial encounter for closed fracture | CPT/HCPCS: 99202 ==

== ENCOUNTER 2024-05-31 12:38 | Outpatient (REF) | payer MEDICAID, SELFPAY ==
--- NOTE | ~2024-05-31 | MM_ITS ---
EXAMINATION: BONE DENSITOMETRY CLINICAL INDICATION: Age-related osteoporosis without current pathological fracture. COMPARISON: This is the patient's baseline examination. TECHNIQUE: Using a [employer] DXA System (software version: 13.1) manufactured by [employer], dual-energy x-ray absorptiometry was performed of the lumbar spine and left hip. The images are of good technical quality. Summary results are attached. FINDINGS: LEFT FEMUR, NECK: BMD 0.931 g/cm2, Z-score -0.5, T-score -1.1, osteopenia. LEFT FEMUR, TOTAL: BMD 1.068 g/cm2, Z-score -0.2, T-score -0.2, normal. AP SPINE L1-L4: BMD 0.885 g/cm2, Z-score -3.1, T-score -2.8, osteoporosis. IDENTIFIED RISK FACTORS: Height loss, history of fracture (adult). HISTORY OF FRACTURE: Spine. MEDICATIONS: None listed. MM/XR DEXA axial skeleton IMPRESSION: 1. DIAGNOSIS: Severe osteoporosis based on the lowest T-score value of -2.8 in the lumbar spine applying World Health Organization criteria. 2. 10-YEAR FRACTURE RISK PREDICTION, FRAX: According to the guidelines, FRAX calculation should only be performed on patients in the osteopenia bone density category. Therefore, FRAX was not performed on this patient. 3. Treatment Recommendations: NOF guidelines recommend consideration for treatment in postmenopausal women and men age 50 and older presenting with the following: -A hip or vertebral (clinical or morphometric) fracture. -T-score less than or equal to -2.5 at the femoral neck or spine after appropriate evaluation to exclude secondary causes. -Low bone mass at the hip or spine and a 10-year fracture probability by FRAX of greater than or equal to 3% for hip fracture or greater than or equal to 20% for major osteoporotic fracture based on the [place] adapted WHO algorithm. 4. Other Recommendations: All treatment decisions require clinical judgment and consideration of individual patient factors, including patient preferences, comorbidities, previous drug use, risk factors not captured in the FRAX model (e.g. frailty, falls, vitamin D deficiency, increased bone turnover, interval significant decline in bone density) and possible under or overestimation of fracture risk by FRAX. Additional medical evaluation for secondary cause of low bone mineral density may be appropriate. FUTURE SCAN RECOMMENDATION: People with diagnosed cases of osteoporosis or at high risk for fracture should have regular bone mineral density tests. For patients eligible for Medicare, routine testing is allowed once every 2 years. The testing frequency can be increased to one year for patients who have rapidly progressing disease, those who are receiving or discontinuing medical therapy to restore bone mass, or have additional risk factors. Electronically signed by: Bob Acevedo MD 06/01/2024 11:08 AM EDT
== END 2024-05-31 12:39 | disposition home or self-care (01) ==
LOC: HO.MAMMO 12:38
PROVIDERS: PCP Internal Medicine; Visit Provider Student in an Organized Health Care Education/Training Program
DX: M81.0 Age-related osteoporosis without current pathological fracture (principal)
CPT/HCPCS: 77080

== ENCOUNTER 2024-06-07 10:07 | Outpatient (REF) | payer MEDICAID, SELFPAY ==
[2024-06-07 10:44] LABS: MANUAL DIFF FLAG NO
[2024-06-07 11:03] LABS: Basophils Absolute Auto 0.1 X10*3/uL (0.0-0.2); Basophils Percent Auto 1.1 % (0-2); Eosinophils Absolute Auto 0.3 X10*3/uL (0.0-0.4); Eosinophils Percent Auto 4.8 % (0-4); Hematocrit 40.1 % (42.0-52.0); Hemoglobin 13.1 g/dl (14.0-18.0); Imm Gran Abs Auto 0.01 X10*3/uL (0.00-0.03); Imm Gran Pct Auto 0.1 % (0.0-0.4); Lymphocytes Absolute Auto 2.2 X10*3/uL (1.2-4.9); Lymphocytes Percent Auto 31.3 % (20-40); Mean Corpuscular HGB Conc 32.7 g/dl (31.0-36.0); Mean Corpuscular Hemoglobin 28.1 pg (27.0-33.0); Mean Corpuscular Volume 85.9 fL (80.0-98.0); Mean Platelet Volume 9.2 fL (9.4-12.4); Monocytes Absolute Auto 0.5 X10*3/uL (0.1-1.2); Monocytes Percent Auto 6.9 % (2-11); Neutrophils Absolute Auto 3.9 x10*3/uL (2.0-8.3); Neutrophils Percent Auto 55.8 % (45-73); Platelet Count 264 X10*3/uL (160-400); Red Blood Count 4.67 X10*6/uL (4.60-5.80); Red Cell Distribution Width 13.4 % (11.0-16.0); White Blood Count 7.1 X10*3/uL (4.8-10.8)
[2024-06-07 11:16] LABS: Appearance Urine Clear; Color Urine Dark Yellow; Glucose Urine UA Negative (Negative); Leukocyte Esterase Urine Negative (Negative); Nitrite Urine Negative (Negative); PH 5.5 (5.0-9.0); Specific Gravity - Urine >= 1.030 (1.005-1.025); Urine Blood Negative (Negative); Urine Ketones Negative (Negative); Urine Protein Negative (Neg-Trace)
[2024-06-07 11:19] LABS: Bacteria Urine None Seen (None Seen); RBC Urine 0-2 /HPF (0-2); Squamous Epithelial Cell Urine 0-2 /HPF (0-2); WBC Urine 0-5 /HPF (0-5)
[2024-06-07 11:46] LABS: Erythrocyte Sedimentation Rate 20 MM/HR (0-15); Parathyroid Hormone Intact 72.8 pg/mL (8.7-77.1)
[2024-06-07 12:04] LABS: TSH reflex Free T4 1.24 uIU/mL (0.32-4.0)
[2024-06-07 12:08] LABS: Alanine Aminotransferase 17 U/L (0-40); Albumin Level 4.3 g/dL (3.5-5.0); Alkaline Phosphatase 97 U/L (39-117); Anion Gap 13 (12-20); Aspartate Amino Transferase 21 U/L (5-37); Bilirubin Direct 0.2 mg/dL (0.0-0.5); Bilirubin Total 0.8 mg/dL (0.0-1.0); Blood Urea Nitrogen 20 mg/dL (9-16); C Reactive Protein 0.78 mg/dL (< or = 0.50); Calcium 9.6 mg/dL (8.4-10.2); Carbon Dioxide 27 mmol/L (22-29); Chloride 100 mmol/L (96-108); Estimated Glomerular Filt Rate > 60; Glucose Random 127 mg/dL (60-115); Phosphorus 3.4 mg/dL (2.7-4.5); Potassium 4.5 mmol/L (3.3-5.1); Sodium 135 mmol/L (135-145); Total Protein 7.7 g/dL (6.5-8.0)
[2024-06-07 12:11] LABS: HBS Num1 0.35 mIU/mL (0-7.99); HBc Num1 0.14 S/CO (0.00-0.79); HIV AB/AG Nonreactive (Nonreactive); HIV Num 1 0.04 S/CO (0.00-0.99); Hepatitis A Antibody IgM 0.43 Index (0-0.79); Hepatitis B Core Antibody Nonreactive (Nonreactive); Hepatitis B Surface Antigen Negative (Negative); ~Hepatitis A Antibody IgM Nonreactive (Nonreactive); ~Hepatitis B Surface Antibody NONREACTIVE (Nonreactive); ~Hepatitis C Antibody Nonreactive (Nonreactive)
[2024-06-07 12:33] LABS: Creatinine Urine 204.22 mg/dL; Protein/Creatinine Ratio, Ur 0.07 (<0.2); Total Protein Urine Random 14 mg/dL (<12)
[2024-06-09 09:09] LABS: Prot Elec - Albumin 4.1 g/dL (3.8-4.8); Prot Elec - Alpha1 0.3 g/dL (0.2-0.3); Prot Elec - Alpha2 0.8 g/dL (0.5-0.9); Prot Elec - Beta 1 0.5 g/dL (0.4-0.6); Prot Elec - Beta 2 0.5 g/dL (0.2-0.5); Prot Elec - Gamma 1.2 g/dL (0.8-1.7); Prot Elec - Total Protein 7.4 g/dL (6.1-8.1)
[2024-06-09 13:48] LABS: Anti DNA DS Antibody <1 IU/mL; Antibody to SS-A Antigen <1.0 NEG AI (<1.0 NEG); Antibody to SS-B Antigen <1.0 NEG AI (<1.0 NEG); SM/Ribonucleoprotein Ab <1.0 NEG AI (<1.0 NEG); Smith Protein <1.0 NEG AI (<1.0 NEG)
[2024-06-09 14:29] LABS: Complement C3 148 mg/dL (82-185)
[2024-06-10 12:12] LABS: TS Negative Control Passed; TS Panel A 0; TS Panel B 3; TS Positive Control Passed; TSpotTB Negative (Negative)
[2024-06-11 18:59] LABS: HLA B27 Negative (Negative)
[2024-06-13 05:13] LABS: DNAds, Crithidia Antibody Negative (Negative)
== END 2024-06-07 10:08 | disposition home or self-care (01) ==
LOC: HO.LAB 10:07
PROVIDERS: Emergency Medicine; PCP Internal Medicine; Visit Provider Student in an Organized Health Care Education/Training Program
DX: F11.91 Opioid use, unspecified, in remission (principal); M06.9 Rheumatoid arthritis, unspecified; M45.9 Ankylosing spondylitis of unspecified sites in spine; M32.9 Systemic lupus erythematosus, unspecified; Z11.7 Encounter for testing for latent tuberculosis infection; M81.0 Age-related osteoporosis without current pathological fracture; E55.9 Vitamin D deficiency, unspecified; Z11.59 Encounter for screening for other viral diseases
CPT/HCPCS: 36415; 80053; 80076; 81001; 82248; 82306; 82570; 83970; 84100; 84156; 84165; 84443; 85025; 85652; 86140; 86160; 86225; 86235; 86255; 86481; 86704; 86706; 86709; 86803; 86812; 87340; 87389

== ENCOUNTER 2024-06-12 08:23 | Outpatient (REF) | payer MEDICAID, SELFPAY ==
[2024-06-15 06:14] LABS: Cyclic Citrullinated Peptide <16 UNITS
[2024-06-15 22:19] LABS: Collagen Type I C-Telopeptide 406 pg/mL (87-345)
== END 2024-06-12 08:24 | disposition home or self-care (01) ==
LOC: HO.LAB 08:23
PROVIDERS: PCP Internal Medicine; Visit Provider Student in an Organized Health Care Education/Training Program
DX: Z13.89 Encounter for screening for other disorder (principal)
CPT/HCPCS: 36415; 82523; 86200

== ENCOUNTER 2024-06-15 12:12 | Outpatient (AMB) | payer MEDICAID, SELFPAY ==
[2024-06-15 13:03] VITALS: BP 135/76; PULSE 100; O2SAT 97; BMI 33.8
--- NOTE | 2024-06-15 13:03 | A.OFFVIS_ITS ---
Vital Signs 06/15/24 13:03 Height 5 ft 8 in Weight 222 lb BMI 33.8 BP 135/76 Blood Pressure Location Rt brachial Position Sitting Pulse 100 Pulse Source Pulse Oximeter Pulse Oximetry (%) 97 Oxygen Delivery Method Room Air Intake Visit Reasons: Radiculopathy, lumbar region Allergies insulin glargine [From Toujeo Max U-300 SoloStar] Allergy (Intermediate, Verified 06/15/24 13:04) itching Medication List - Last Reconciled 06/15/24 by Bita Ocampo aspirin 81 mg PO DAILY baclofen mg PO blood sugar diagnostic (FreeStyle Lite Strips) 1 strip miscellaneous TID blood-glucose meter (FreeStyle Lite Meter kit) As directed buprenorphine-naloxone 8-2 mg (Suboxone) 1 film sublingual DAILY carvedilol 12.5 mg PO BID empagliflozin (Jardiance) 25 mg PO QAM 30 days flash glucose scanning reader (ZayanteStyle Yahaira 2 [place]) As directed flash glucose sensor (ZayanteStyle Yahaira 2 Sensor kit) USE DIRECTED EVERY 2 WEEKS insulin degludec (Tresiba FlexTouch U-200 insulin) 64 units (0.32 mL) subcut BEDTIME 30 days insulin lispro 12 - 14 units (0.12 - 0.14 mL) subcut TID lancets (FreeStyle Lancets) As directed three time a day omeprazole 20 mg PO DAILY pen needle, diabetic (BD Ultra-Fine Gisella Pen Needle) As directed four times a day tirzepatide (Mounjaro) 7.5 mg (0.5 mL) subcut QWEEK 30 days valsartan 80 mg PO BID HPI Comments Details: Nemesio is a very pleasant 65-year-old male who presents to the office today for evaluation and management of his chronic lower back pain Visit was completed with outboard motors experimental mechanic, Lilibeth Urban. Patient endorses midline lower back pain without radiation down either lower extremity. Pain is worse with moving, twisting, walking, sitting Recent x-rays were reviewed, results as per below Denies red flag symptoms including new loss of bowel, bladder or saddle anesthesia Denies pain or tenderness over bilateral PSIS Denies injury, trauma, fall Pain today is rated as a 10/10, constant and worse in the middle of the night. He has not attempted physical therapy, chiropractor, acupuncture, massage or previous attempts at injections Currently taking naproxen and Tylenol as needed, baclofen as needed. He reports these provide some relief but ultimately pain persists In terms of muscle damage condition is described as shooting, aching, throbbing Pain is negatively impacting patient's enjoyment of life, general activity, sleep, walking, ability to perform activities of daily living Denies current use of anticoagulants Denies implantable devices, pacemaker defibrillator Denies current use of alcohol, nicotine, tobacco or illicit substances ON LICENSE OF [facility] Medical History History of cardiomyopathy Prosthetic valve dysfunction BMI 39.0-39.9,adult Cardiomyopathy TAMARA (obstructive sleep apnea) Opioid dependence Hypogonadism Polyarthropathy Erectile dysfunction Nephrolithiasis Depression Esophageal reflux Arthritis Asthma Hyperlipidemia LDL goal <70 Obesity due to excess calories Essential hypertension Type 2 diabetes mellitus with diabetic neuropathy, unspecified Surgical History History of heart valve replacement Hx of umbilical hernia repair Family History Father Heart disease CVD (cardiovascular disease) Mother DM2 (diabetes mellitus, type 2) Social History Household Members: None Alcohol intake: current Alcohol intake frequency: does not drink Patient Tobacco Use Status: Former Tobacco user Current occupational status: disabled Review of Systems Const All systems reviewed & are unremarkable except as noted in HPI and below Physical Exam Vital Signs: Last Vital Signs Pulse 100 06/15/24 13:03 BP 135/76 06/15/24 13:03 Pulse Ox 97 06/15/24 13:03 Oxygen Delivery Method Room Air 06/15/24 13:03 BMI result Body Mass Index 33.8 General: awake, alert, oriented. Answers questions appropriately. Fully engaged in examination. Skin: warm, dry, intact HEENT: Normocephalic. Hearing intact. Cardiac: External chest normal in appearance. Respiratory: No cough, audible wheezing or stridor. Abdomen: without gross distension. MS: No obvious swelling or deformities. Able to transition from sit to stand unassisted. Ambulates with bilaterally normal heel strike and toe off Tenderness over midline lumbar vertebrae and lumbar paraspinal muscles Minimally tender over bilateral PSIS [place] negative, thigh thrust is negative bilaterally Facet loading positive bilaterally SLR negative bilaterally Bilateral lower extremity strength 5/5 Neurological: Oriented to person, place, time and situation. Thought process intact. No gait abnormalities appreciated. Psychiatric: Appropriate mood and affect. Good judgment and insight. Results Reviewed Results Reviewed: 11/09/23 XR LS FINDINGS: There are 5 nonrib-bearing lumbar-type vertebral bodies. The height of the lumbar vertebral bodies is well-maintained. There is mild anterior wedge compression of the T11 vertebral body. There is multilevel disc space narrowing in the lower thoracic spine. Large anterior marginal osteophytes at T12-L1. Anterior marginal ossified formation is also seen at L1-L2 and L2-L3. There is no significant disc space narrowing. No spondylolisthesis. IMPRESSION: Mild upper lumbar spine spondylolysis, most prominent at T12-L1 and L1-L2 levels. Assessment & Plan Assessment & Plan (1) Lumbar degenerative disc disease: Code(s): M51.369 - Other intervertebral disc degeneration, lumbar region without mention of lumbar back pain or lower extremity pain Category: Medical Qualifiers: Disc-related pain type: discogenic back pain and lower extremity pain Qualified Code(s): M51.362 - Other intervertebral disc degeneration, lumbar region with discogenic back pain and lower extremity pain (2) Osteoporosis: Code(s): M81.0 - Age-related osteoporosis without current pathological fracture Category: Medical Plan Order placed for PT eval and treat Continue with baclofen 5 mg 3 times daily as needed Lengthy discussion today with patient regarding his DEXA scan results and severe osteoporosis. He was strongly advised to call endocrinology to make a follow-up shankar. Discussed options for treatment including diagnostic interventional testing, epidural steroid injections, peripheral nerve stimulation with Sprint, RFA and more permanent neuromodulation. If no improvement after physical therapy will plan for bilateral diagnostic L3- L4 DR L5 medial branch blocks with local anesthetic versus sprint PNS trial All questions and concerns were answered, patient agrees with the plan. Follow up after physical therapy, sooner if needed. Orders: Orders PT Evaluation and Treatment Today M51.362 - Other intervertebral disc degeneration, lumbar region with discogenic back pain and lower extremity pain, M54.9 - Dorsalgia, unspecified Coding Level of Care Code New Pt Level 4 (32145) Complex EM visit Add On G2211 Diagnoses Degeneration of intervertebral disc of lumbar region with discogenic back pain and lower extremity pain M51.362 Disc-related pain type: discogenic back pain and lower extremity pain Osteoporosis M81.0
== END 2024-06-15 14:03 | disposition home or self-care (01) ==
LOC: HO.PMC 12:13
PROVIDERS: PCP Internal Medicine; Visit Provider Registered Nurse Emergency
DX: M51.362 Other intervertebral disc degeneration, lumbar region with discogenic back pain and lower extremity pain (principal); M81.0 Age-related osteoporosis without current pathological fracture
CPT/HCPCS: 99204

== ENCOUNTER → 2024-06-15 12:12 | Outpatient (BNVA) | payer MEDICAID, SELFPAY | PROVIDERS: PCP Internal Medicine; Visit Provider Registered Nurse Emergency | DX: M81.0 Age-related osteoporosis without current pathological fracture (principal); M51.362 Other intervertebral disc degeneration, lumbar region with discogenic back pain and lower extremity pain | CPT/HCPCS: 99212 ==

== ENCOUNTER 2024-06-28 10:31 | Outpatient (AMB) | payer MEDICAID, SELFPAY ==
--- NOTE | 2024-06-28 11:00 | A.OFFVIS_ITS ---
Vital Signs 06/28/24 11:07 Height 5 ft 8 in Weight 220 lb 7.396 oz BMI 33.5 BP 120/72 Blood Pressure Location Rt brachial Position Sitting Pulse 62 Pulse Source Pulse Oximeter Pulse Oximetry (%) 97 Oxygen Delivery Method Room Air Intake Visit Reasons: RA/OA/CM Intake Note: Patient presents for RA/OA. Pyrotechnic Mixer Required: Yes Pyrotechnic Mixer Language: Navigating Officer Services: Pyrotechnic Mixer Present Pyrotechnic Mixer Name: Duyen [id number] Information Interpreted: non-clinical & clinical Allergies insulin glargine [From Toutahiro Max U-300 SoloStar] Allergy (Intermediate, Verified 06/15/24 13:04) itching Medication List - Last Reconciled 06/28/24 by Anuja Gonsalez MD aspirin 81 mg PO DAILY baclofen mg PO blood sugar diagnostic (FreeStyle Lite Strips) 1 strip miscellaneous TID blood-glucose meter (FreeStyle Lite Meter kit) As directed buprenorphine-naloxone 8-2 mg (Suboxone) 1 film sublingual DAILY carvedilol 12.5 mg PO BID empagliflozin (Jardiance) 25 mg PO QAM 30 days flash glucose scanning reader (FreeStyle Yahaira 2 [place]) As directed flash glucose sensor (FreeStyle Yahaira 2 Sensor kit) USE DIRECTED EVERY 2 WEEKS insulin degludec (Tresiba FlexTouch U-200 insulin) 64 units (0.32 mL) subcut BEDTIME 30 days insulin lispro 12 - 14 units (0.12 - 0.14 mL) subcut TID lancets (FreeStyle Lancets) As directed three time a day omeprazole 20 mg PO DAILY pen needle, diabetic (BD Ultra-Fine Gisella Pen Needle) As directed four times a day tirzepatide (Mounjaro) 7.5 mg (0.5 mL) subcut QWEEK 30 days valsartan 80 mg PO BID HPI Comments Details: Patient returns for follow-up. He did most of the requested blood work and DEXA scan but did not do his x-rays, hand or wrist ultrasound or the rheumatoid factor. Initial history: This is a 63-year-old male who presents for evaluation of a positive MILTON in the setting of diffuse pain. He states that he has low back pain that intermittently radiates down his lower extremities. He states that he was evaluated by review assistant in the past and was told that he may have rheumatoid arthritis. He states that he was prescribed Motrin. States that it does not help much. He states that he has morning stiffness of his low back, and hands that lasts 20-30 minutes. 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 States that his hands may swell about once a year. Has lost a few inches over the years. States that he has a sister with osteoporosis. [facility] Medical History History of cardiomyopathy Prosthetic valve dysfunction BMI 39.0-39.9,adult Cardiomyopathy TAMARA (obstructive sleep apnea) Opioid dependence Hypogonadism Polyarthropathy Erectile dysfunction Nephrolithiasis Depression Esophageal reflux Arthritis Asthma Hyperlipidemia LDL goal <70 Obesity due to excess calories Essential hypertension Type 2 diabetes mellitus with diabetic neuropathy, unspecified Surgical History History of heart valve replacement Hx of umbilical hernia repair Family History Father Heart disease CVD (cardiovascular disease) Mother DM2 (diabetes mellitus, type 2) Social History Household Members: None Alcohol intake: current Alcohol intake frequency: does not drink Patient Tobacco Use Status: Former Tobacco user Current occupational status: disabled Review of Systems [facility] Reports back pain, Reports arthralgias, Reports radiating pain into limb and Reports stiffness Physical Exam Vital Signs: Last Vital Signs Pulse 62 06/28/24 11:07 BP 120/72 06/28/24 11:07 Pulse Ox 97 06/28/24 11:07 Oxygen Delivery Method Room Air 06/28/24 11:07 BMI result Body Mass Index 33.5 Const General: cooperative, healthy appearing and comfortable Nutritional Appearance: obese Orientation/consciousness: patient oriented x3 Limitations: no limitations HEENT Head: Yes normocephalic and Yes atraumatic Mouth: moist mucous membranes Resp Effort & Inspection: normal respiratory effort and able to speak in complete sentences Auscultation: clear to auscultation bilaterally Cardio Rate: regular rate Rhythm: regular rhythm Skin General skin exam: no rashes or lesions noted Neuro General: patient oriented x3 Extrem Other: No swollen joints both hands and wrists Ulnar deviation at the MCPs bilaterally Flexion contracture of left little finger related to trauma Right 4th and 5th MCP tenderness without swelling Normal range of motion of elbows and shoulders without pain Negative straight leg raise test bilaterally Positive LIZETTE test on the right Left foot bunion No fibular deviation of toes Right 4th and 5th MTP tenderness Negative MTP squeeze test bilaterally Normal nailfold capillaroscopy Assessment & Plan Assessment & Plan (1) Hand deformities: Code(s): M21.949 - Unspecified acquired deformity of hand, unspecified hand Category: Medical Qualifiers: Laterality: unspecified laterality Qualified Code(s): M21.949 - Unspecified acquired deformity of hand, unspecified hand Plan: This is a 63-year-old male who presents for evaluation of positive MILTON in the setting of polyarthralgias. On exam patient has deformities suggestive of rheumatoid arthritis. Ulnar deviation at the MCPs. He states that was born like this. He has generalized stiffness of his entire body including his hands that lasts 20-30 minutes daily. He gets bilateral hand pain and stiffness with activity. Denies any significant joint swelling. I reviewed his right hand x-ray. The radiologist points out some erosions but I am unable to identify any on review. I will check further x-rays to establish a new baseline. Check bilateral hand and wrist ultrasound to evaluate for synovitis/tenosynovitis His comprehensive serology is negative. Rheumatoid factor was not done. I will check rheumatoid factor today Follow-up in about 4-6 weeks (2) Lumbar degenerative disc disease: Code(s): M51.369 - Other intervertebral disc degeneration, lumbar region without mention of lumbar back pain or lower extremity pain Category: Medical Qualifiers: Disc-related pain type: discogenic back pain and lower extremity pain Qualified Code(s): M51.362 - Other intervertebral disc degeneration, lumbar region with discogenic back pain and lower extremity pain Plan: Referred to PT Check SI joint x-rays (3) T12 compression fracture: Code(s): S22.080A - Wedge compression fracture of T11-T12 vertebra, initial encounter for closed fracture Category: Medical Plan: 3 inches height loss over the years. T12 compression fracture on x-ray. DEXA scan showing osteoporosis. Patient follows up regularly with endocrinology. Advised patient to discuss with his melter supervisor electric arc furnace as he likely needs workup for secondary causes of osteoporosis (? Hypogonadism) (4) MILTON positive: Code(s): R76.8 - Other specified abnormal immunological findings in serum Category: Medical Plan: Sub serologies are negative Plan I spent 25 minutes reviewing patient's chart, evaluating patient, ordering diagnostic workup, counseling patient and documenting in the chart Orders: Orders Rheumatoid Factor Today M25.50 - Pain in unspecified joint US guided asp or inj major jt Today M21.949 - Unspecified acquired deformity of hand, unspecified hand Coding Level of Care Code Est Pt Level 4 (15964) Diagnoses Deformity of hand, unspecified laterality M21.949 Laterality: unspecified laterality Degeneration of intervertebral disc of lumbar region with discogenic back pain and lower extremity pain M51.362 Disc-related pain type: discogenic back pain and lower extremity pain T12 compression fracture S22.080A MILTON positive R76.8
[2024-06-28 11:07] VITALS: BP 120/72; PULSE 62; O2SAT 97; BMI 33.5
== END 2024-06-28 11:40 | disposition home or self-care (01) ==
PROVIDERS: PCP Internal Medicine; Visit Provider Student in an Organized Health Care Education/Training Program
DX: M21.949 Unspecified acquired deformity of hand, unspecified hand (principal); M51.362 Other intervertebral disc degeneration, lumbar region with discogenic back pain and lower extremity pain; S22.080A Wedge compression fracture of T11-T12 vertebra, initial encounter for closed fracture; R76.8 Other specified abnormal immunological findings in serum
CPT/HCPCS: 99214

== ENCOUNTER → 2024-06-28 10:31 | Outpatient (BNVA) | payer MEDICAID, SELFPAY | PROVIDERS: PCP Internal Medicine; Visit Provider Student in an Organized Health Care Education/Training Program | DX: M21.949 Unspecified acquired deformity of hand, unspecified hand (principal); M51.362 Other intervertebral disc degeneration, lumbar region with discogenic back pain and lower extremity pain; R76.8 Other specified abnormal immunological findings in serum; S22.080A Wedge compression fracture of T11-T12 vertebra, initial encounter for closed fracture; M25.50 Pain in unspecified joint; X58.XXXA Exposure to other specified factors, initial encounter; Y93.9 Activity, unspecified; Y92.9 Unspecified place or not applicable; Y99.9 Unspecified external cause status | CPT/HCPCS: 99212 ==

== ENCOUNTER 2024-06-29 11:57 | Outpatient (AMB) | payer MEDICAID, SELFPAY ==
--- NOTE | 2024-06-29 07:04 | A.OFFVIS_ITS ---
Vital Signs 06/29/24 12:11 Height 5 ft 8 in Weight 220 lb 7.396 oz BMI 33.5 BP 108/64 Blood Pressure Location Rt brachial Position Sitting Pulse 75 Pulse Source Pulse Oximeter Intake Visit Reasons: F/U T2DM/LVM Intake Note: Patient presents today for a follow-up on Type 2 Diabetes Mellitus: Last Diabetic Eye exam: Has a coming up appt in July Patient receives DME supplies through: Pharmacy Last Podiatry Exam: Does not see a Stockroom Attendant Most recent HbA1c: 7.3%, 06/29/2024 Random Glucose-170 mg/dL, Today Research Subject Required: Yes Research Subject Language: Machine Pie Maker Services: Research Subject Present ([employer] VIA VIDEO CALL) Accompanied by: Self / Same As Patient Allergies insulin glargine [From TouSemiLev Max U-300 SoloStar] Allergy (Intermediate, Verified 06/15/24 13:04) itching Medication List - Last Reconciled 06/29/24 by Norah Lundy NP aspirin 81 mg PO DAILY baclofen mg PO blood sugar diagnostic (FreeStyle Lite Strips) 1 strip miscellaneous TID blood-glucose meter (FreeStyle Lite Meter kit) As directed buprenorphine-naloxone 8-2 mg (Suboxone) 1 film sublingual DAILY carvedilol 12.5 mg PO BID empagliflozin (Jardiance) 25 mg PO QAM 30 days flash glucose scanning reader (FreeStyle Yahaira 2 [place]) As directed flash glucose sensor (FreeStyle Yahaira 2 Sensor kit) USE DIRECTED EVERY 2 WEEKS glucose (Dex4 Glucose) 16 grams (4 x 4 gram) PO Q15M PRN 30 days MDD 16 tablets insulin degludec (Tresiba FlexTouch U-200 insulin) 76 units subcut BEDTIME insulin lispro 12 - 14 units (0.12 - 0.14 mL) subcut TID lancets (FreeStyle Lancets) As directed three time a day omeprazole 20 mg PO DAILY pen needle, diabetic (BD Ultra-Fine Gisella Pen Needle) As directed four times a day tirzepatide (Mounjaro) 7.5 mg (0.5 mL) subcut QWEEK 30 days valsartan 80 mg PO BID HPI Comments Details: Patient is a 64 yo male with DM type 2 diagnosed about 10 years ago who presents for the management of diabetes and initial visit for osteoporosis. He was last seen by myself 03/30/2024 at which time Mounjaro was increased to 7.5 mg. He was seen by Janneth Bell CDE for general DM education02/2023. A1C 06/29/24 7.3 % A1C 03/30/24 7.5% down from 8.5%. A1C's have been progressively decreasing over the past year. Past medical history includes : asthma, CAD, HLD, sleep apnea Micro and macrovascular complications: + neuropathy, + CAD He is intolerant to metformin due to GI cramping Diabetes medications: Tresiba 80 units daily lispro 8-12 units units prior to meals Mounjaro 7.5 mg Qwkly Jardiance 25mg daily Freestyle yahaira 2 14 day continuous glucose sensor report reviewed avg glucose: 146 Glucose Management indicator 6.8 % Time CGM active % TIme in ranges: 0 % very high (above 250) 15 % high (181-250) 84 % in range (70-180] 1 % low (69-55) 0 % very low (below 54) Interpretation of CGMS glucose in excellent range with some a.m. lows around 06:00am Hypoglycemia: no lows Hyperglycemia: no symptoms LDL 97 12/07 He is not on a statin. No nephropathy: He is on an ARB 06/07/24 eGFR 60 11/29/23 microalbumin 7.0 Has prior symptoms of numbness and tingling but now denies since his blood sugars have stabilized Does not carry a sugar source Exercise: walk 1/2 hour most days. Eye exam: reports no retinopathy last exam one year ago has appt for july 19/2024 LDL 75 Has seen CDE 03/07 Osteoporosis: He had a recent bone density test through his photographic engineer. T-score AP spine-2.5 osteoporosis femur osteopenia -1.1 He reports he may have had a spinal fracture earlier in the year and had multiple x-rays of the lumbar spine and ribs. Spinal x-ray shows mild anterior wedge compression of T11 no rib fracture He believes his sister has osteoporosis He has taken long-term PPI, no prior steroid use and no Dilantin He has no history of kidney stones or elevated calcium No family h/o increased calcium Takes an adequate calcium drinking 4 glasses of milk daily and recent calcium and vitamin-D levels have been within normal limits He denies fatigue [facility] Medical History (Updated 06/29/24 @ 13:46 by Norah Ludny NP) Osteoporosis History of cardiomyopathy Prosthetic valve dysfunction BMI 39.0-39.9,adult Cardiomyopathy TAMARA (obstructive sleep apnea) Opioid dependence Hypogonadism Polyarthropathy Erectile dysfunction Nephrolithiasis Depression Esophageal reflux Arthritis Asthma Hyperlipidemia LDL goal <70 Obesity due to excess calories Essential hypertension Type 2 diabetes mellitus with diabetic neuropathy, unspecified Surgical History History of heart valve replacement Hx of umbilical hernia repair Family History Father Heart disease CVD (cardiovascular disease) Mother DM2 (diabetes mellitus, type 2) Social History Household Members: None Alcohol intake: current Alcohol intake frequency: does not drink Patient Tobacco Use Status: Former Tobacco user Current occupational status: disabled Physical Exam Vital Signs: Last Vital Signs Pulse 75 06/29/24 12:11 BP 108/64 06/29/24 12:11 BMI result Body Mass Index 33.5 There are no Cushingoid features. Absence of blue sclera. Absence of kyphosis. Thyroid gland is of nl size and weighs 15 gms. There are no thyroid nodules palpated. Lungs CTA. Heart S1 S2 Reg R/R Abdominal exam benign. Muscle strength 5/5 . Examination of spine reveals absence of tenderness on palpation Const Other: Absence of Cushingoid features. Absence of acromegalic features. Neck exam reveals nl size thyroid about 15 gms. No thyroid nodules palpable. No carotid bruits present. Heart S1 S2, Reg R/R. No M/R G. Skin exam reveals absence of vitiligo or acanthosis nigricans. No edema Visual exam of foot performed. No ulcerations or open lesions. No inter digit maceration or fissuring. No onychomycosis, no callouses. Sensation intact to monofilament exam. Vibratory sensation is normal with 128 Hz tuning fork. Results AMB Hemoglobin A1c AMB Hemoglobin A1c 7.3 % Last Edit by VIVIANE Manley on 06/29/24 12:23 Results Reviewed Results Reviewed: Laboratory Last Values Glucose (Clinic) 170 mg/dL (60-115) H 06/29/24 12:14 Hgb A1c (Clinic) 7.3 % (4.0-6.0) H 06/29/24 12:17 Assessment & Plan Assessment & Plan (1) Type 2 diabetes mellitus with diabetic neuropathy, unspecified: Code(s): E11.40 - Type 2 diabetes mellitus with diabetic neuropathy, unspecified Category: Medical Qualifiers: Diabetes mellitus correction insulin use: with extermination supervisor use Qualified Code(s): E11.40 - Type 2 diabetes mellitus with diabetic neuropathy, unspecified; Z79.4 - long-term (current) use of insulin Plan: 64-year-old type 2 diabetic with neuropathy with most recent A1c of 7.3% down from 9.7% last year. Glucose management indicator for last 2 weeks 6.8% Continue all current doses with the exception of reducing Tresiba to 76 units to avoid a.m. lows The patient had an opportunity to ask questions regarding treatment plan. The patient expressed understanding and agreement with the above treatment plan. The patient is aware they should contact our office by phone for worsening glucose readings or for any low blood sugars which may warrant a change in diabetes medication. Compliance is encouraged with medications and any followup testing/consults which may have been ordered. (2) Osteoporosis: Code(s): M81.0 - Age-related osteoporosis without current pathological fracture Category: Medical Plan: 64 year old male with osteoporosis, T score AP spine -2.5 and h/o mild ant wedge compression T11 vertebrae earlier this year. Calcium intake is adequete (consumes 4 glasses of milk daily) and he has normal spep, phos, calcium, albumin, tsh, vit d. Will complete work up with testosterone, upep, 2r hour urine for calcium/creat. We briefly discussed treatment options. Case reviewed with Dr. Fletcher. Could consider Tymlos/Forteo. Patient will f/u with Dr. Fletcher after he completes blood/urine test in 4 weeks. Orders: Orders Creatinine, 24 Hr Group Today Norah Alysha Lundy NP M81.0 - Age-related osteoporosis without current pathological fracture Protein Electrophoresis 24HrUr Today Norahbooker Lundy NP M81.0 - Age-related osteoporosis without current pathological fracture Testosterone, Free/Total Today Norah Lundy NP M81.0 - Age-related osteoporosis without current pathological fracture AMB Hemoglobin A1c Today Norahbooker Lundy NP E11.40 - Type 2 diabetes mellitus with diabetic neuropathy, unspecified, Z79.4 - medical terminologist (current) use of insulin Calcium, 24 Hr Ur Today Norah Lundy NP M81.0 - Age-related osteoporosis without current pathological fracture Medications: New glucose (Dex4 Glucose) every 15 minutes until symptoms of low blood sugar are controlled 16 grams (4 x 4 gram) PO Q15M 30 days PRN 30 tabs 3RF hypoglycemia MDD 16 tablets Norah Lundy NP Changed From insulin degludec (Tresiba FlexTouch U-200 insulin) 64 units (0.32 mL) subcut BEDTIME 30 days 18 mL 4RF E11.40 - Type 2 diabetes mellitus with diabetic neuropathy, unspecified To insulin degludec (Tresiba FlexTouch U-200 insulin) 76 units subcut BEDTIME E11.40 - Type 2 diabetes mellitus with diabetic neuropathy, unspecified SONYA Ward Patient Instructions: The patient was counseled to achieve a target A1C of 7% (154 avg). Fasting blood sugars should be 90-130 in the morning and less than 180 two hours after meals. Reviewed the relationship between poor diabetic control and the development of complications. The patient was counseled to always carry a source of sugar and on the rule of 15's: Take 3 glucose tablets and repeat again in 15 minutes if blood sugar is not in normal range. Continue to repeat every 15 minutes until blood sugar is normal. Check your feet daily looking for any signs of infection, ulceration and seek medical attention if this occurs. Break in shoes gradually and do not wear open-toed shoes or walk barefooted. Coding Level of Care Code Est Pt Level 4 (88872) Complex EM visit Add On G2211 Diagnoses Type 2 diabetes mellitus with diabetic neuropathy, with long-term current use of insulin E11.40; Z79.4 Diabetes mellitus extermination supervisor insulin use: with extermination supervisor use Osteoporosis M81.0 Time Spent (min) 45 Comment Time spent reviewing labs/provider notes, face to face, chart doc
[2024-06-29 12:11] VITALS: BP 108/64; PULSE 75; BMI 33.5
[2024-06-29 12:18] LABS: Glucose, Whole Blood 170 mg/dL (60-115)
== END 2024-06-29 13:21 | disposition home or self-care (01) ==
PROVIDERS: PCP Internal Medicine; Visit Provider Nurse Practitioner Adult Health
DX: E11.40 Type 2 diabetes mellitus with diabetic neuropathy, unspecified (principal); Z79.4 Long term (current) use of insulin; M81.0 Age-related osteoporosis without current pathological fracture
CPT/HCPCS: 99214

== ENCOUNTER → 2024-06-29 11:57 | Outpatient (BNVA) | payer MEDICAID, SELFPAY | PROVIDERS: PCP Internal Medicine; Visit Provider Nurse Practitioner Adult Health | DX: E11.40 Type 2 diabetes mellitus with diabetic neuropathy, unspecified (principal); M81.0 Age-related osteoporosis without current pathological fracture; Z79.4 Long term (current) use of insulin; Z79.84 Long term (current) use of oral hypoglycemic drugs | CPT/HCPCS: 82947; 83036; 99212 ==

== ENCOUNTER 2024-09-15 10:10 | Outpatient (REF) | payer MEDICAID, SELFPAY ==
--- OUTSIDE RECORDS SUMMARY | 2024-09-15 10:49 | XMS_ITS | Encounter Summary ---
Author Organization [employer] Address [address] [facility] [address] [place] [address] Care Team Providers Care Recreational Sports Director Name Role Phone Galo Fang MD Primary Care Provide r Reason for Visit * Reason Onset Date Comments Chart Prep 09/01/2024 Encounter Details Date Type Department Care Team ([facility] Contact Info) Description 09/01/2024 Telephone [facility] [address] [place], [place] [id number] Galo Fang MD [address] [place] [address] Chart Prep Social History Tobacco Use Types Packs/Day Years Used Date Smoking Tobacco: Former Cigarettes Passive Smoke Exposure: Past Smokeless Tobacco: Never Depression Answer Date Recorded Patient Health Questionnaire-9 Score 0 05/26/2024 Patient Health Questionnaire-9 Score 0 05/26/2024 Last PHQ-9: Questionnaire Data Not on file 1 Housing Stability Answer Date Recorded What is your housing situation today? I have arnaldo jaimes 07/01/[address] you li ve. Do you have problems with any of the following? None of the above 07/01/2023 Food Insecurity Answer Date Recorded Within the past 12 months, y ou worried that your food would run out before you got money to buy more: Never True 07/01/2023 Within the past 12 months,th e food you bought just didn't last and you didn't have enough money to get more: Never True Transportation Answer Date Recorded In the past 12 months, has l ack of transportation kept you from medical appts, meetings, work or from getting things needed for daily living? No 07/01/2023 Utilities Answer Date Recorded In the past 12 months, has t he electric, gas, oil or water company threatened to shut off services in your home? No 07/01/2023 Depression Answer Date Recorded Patient Health Questionnaire-2 Score 0 05/26/2024 Internet Access Answer Date Recorded Internet Access Q1 Yes 05/26/2024 Internet Access Q2 Not on file 05/26/2024 Sex and Gender Information Value Date Recorded Sex Assigned at Male 06/15/2022 10:16 AM EDT Legal Sex Male 10:16 AM EDT Gender Identity Male 06/15/2022 10:16 AM EDT Sexual Orientation Straight 06/15/2022 10 :16 AM EDT documented as of this encounter Miscellaneous Notes * Telephone Encounter - Tammy Qiu MA - 09/01/2024 10:09 AM EST Chart Prep Labs: not applicable Images: not applicable Vaccines due: Covid Due, RSV in Pharmacy Due, and Shingles in pharmacy Due Referrals: Not Applicable Screenings: Foot Exam Overdue care gaps: A1C, Glucose, and Sbirt Chart prep for upcoming appt with Dr.Esparza degroot. LB documented in this encounter Plan of Treatment Upcoming Encounters Date Type Department Care Team (Late st Contact Info) Description 10/13/2024 9:30 AM EST Office Visit [facility] [address] [place] [id number] Carroll Roberts MD [address] [place] [address] documented as of this encounter Visit Diagnoses Not on filedocumented in this encounter Additional Health Concerns Assessment Noted Time PHQ-9 Depression Total Score: 0 05/26/20 9:56 AM EDT documented as of this encounter Care Teams Recreational Sports Director Relationship Specialty Start Date End Date Galo Fang MD [address] [place] [id number] PCP - General Internal Medicine 04/04/14 documented as of this encounter
--- OUTSIDE RECORDS SUMMARY | 2024-09-15 10:49 | XMS_ITS | Encounter Summary ---
Author Organization [employer] Address [address] [facility] 7t [place] [address] Care Team Providers Care Director Of Product Management Name Role Phone Galo Fang MD Primary Care Provide r Reason for Visit * Reason Comments OBAT F/U Encounter Details Date Type Department Care Team ([facility] st Contact Info) Description 08/18/2024 9:30 AM EST Office Visit [facility] [address] [place], [place] [phone] Carroll Roberts MD [address] [place], [place] [phone] Opioid use disorder in remission (Primary Dx); Opioid type dependence, continuous (CMS/HCC) Social History Tobacco Use Types Packs/Day Years [...] AM EDT documented as of this encounter Progress Notes * Carroll Roberts MD - 08/18/2024 9:30 AM EST Patient ID: Nemesio Ramírez is a 64 y.o. male who presents for follow-up for opioid use disorder in sustained remission. Suboxone 10/2.5 mg on an 8 week schedule. Induction date: 05/10/09. Has been here 14. Years, 11 months Patient not actively enrolled in behavioral health services, completed sessions. ENROLLMENT MANAGEMENT DIRECTOR reviewed by provider. LFTs completed 06/07/24 Hep A status: Immunized Hep B status: Immunized Hep C status: 06/07/24 non-reactive HIV status: 06/07/24 non-reactive Last PCP appt 04/10/21, Dr. Moulton. 07/21/24 Utox BUP F/U for opioid use disorder How is pt doing on Suboxone? Doing ok. I informed pt of harm reduction and COVID precautions/Flu-did end up getting Covid booster. Seeing an tile helper and another specialist for osteoporosis. No substance use or alcohol. Does not smoke. BM q2-3 days, not stool not hard. Continues Senna and Colace. Does not take everyday; may not take the day or the day after a BM. Does feel better after a bowl movement. Family is good. Thanksgiving with family @ his house. As above. Recovery intact. I suggest he trial taking colace and senna daily for at least 2 weeks. Review Hep B serology (neg) and obtain Hep A IgG. He was vaccinated for both 2008-. F/U 8 weeks. Today 08/18/24 F/U for opioid use disorder Utox BUP Doing well. Brigid and New Years with family. Caodaism. No alcohol, substance use, or smoking. No ADRs. Constipation improved-Senna BID, Colace every day. Feels some dietary changes helping. Less rice. Daily BM, not hard. Thinking about decreasing dose, getting off Suboxone but not now. Objective Physical Exam Constitutional: Appearance: Normal appearance. Neurological: Mental Status: He is alert and oriented to person, place, and time. Psychiatric: Mood and Affect: Mood normal. Behavior: Behavior normal. Thought Content: Thought content normal. Assessment/Plan Opioid use disorder in remission As above. Continues to do well. Constipation improved. Starting to think about tapering. F/U 8 weeks. This information has been disclosed to you from records protected by federal confidentiality rules(42 CFR Part 2). The federal rules prohibit you from making any further disclosure of information in this record that identifies a patient as having or having had a substance use disorder either directly, by reference to publicly available information, or through verification of such identificationby another person unless further disclosure is expressly permitted by the written consent of the individual whose information is being disclosed or as otherwise permitted by (see 2.3.1). The federal rules restrict any use of the information to investigate or prosecute with regard to a crime any patient with a substance use disorder, except as provided at 2.12??(5) and 2.65. documented in this encounter Plan of Treatment Upcoming Encounters Date Type Department Care Team (Late st Contact Info) Description 10/13/2024 9:30 AM EST Office Visit [facility] [address] [place] [address] Carroll Roberts MD [address] [place] [address] documented as of this encounter Procedures Procedure Name Priority Date/Time Associated Diagnosis Comments POCT FRANCESCA-14 URINE DRUG SCREEN Routine 08/18/2024 9:05 AM EST Opioid type dependence, continuous (CMS/HCC) documented in this encounter Results * POCT FRANCESCA-14 Urine Drug Screen (08/18/2024 9:05 AM EST) THC Negative Cocaine Screen, Urine Negative Opiate Screen, Urine Negative Methamphetamine Screen Urine Negative Amphetamine Screen, Urine Negative Benzodiazepines Screen, Urine Negative Barbiturate Screen, Urine Negative Methadone Screen, Urine Negative Buprenophine Screen, Urine Positive TCA, Urine Negative MDMA Urine Negative ng/mL Oxycodone Screen, Urine Negative Phencyclidine (PCP), Urine Negative Propoxyphene, Urine Negative Fentanyl, Urine Negative Urine Urine specimen obtained by clean catch procedure / Unknown 08/18/2024 9:05 AM EST Carroll Roberts MD POINT OF CARE TEST ENTER/EDIT ORDERABLES Final Result documented in this encounter Visit Diagnoses Diagnosis Opioid use disorder in remission- Primary Opioid type dependence, continuous (CMS/HCC) Opioid type dependence, continuous documented in this encounter Additional Health Concerns Assessment Noted Time PHQ-9 Depression Total Score: 0 05/26/20 24 9:56 AM EDT documented as of this encounter Care Teams Director Of Product Management Relationship Specialty Start Date End Date Galo Fang MD [address] [place] [address] PCP - General Internal Medicine 04/04/14 documented as of this encounter
--- OUTSIDE RECORDS SUMMARY | 2024-09-15 10:49 | XMS_ITS | Encounter Summary ---
Author Organization [employer] Address [address] [facility] 7t [place] [address] Care Team Providers Care Attendance Secretary Name Role Phone Galo Fang MD Primary Care Provide r Reason for Visit * Reason Comments RC Outreach/No Answer Encounter Details Date Type Department Care Team ([facility] st Contact Info) Description 08/21/2024 Patient Outreach [facility] [address] [place] [address] Queta Mohan RC Outreach/No Answer Social History Tobacco Use Types Packs/Day Years [...] as of this encounter Progress Notes * Queta Mohan - 08/21/2024 2:49 PM EST Today, I was in phone communication with the participant Nemesio Ramírez to conduct a [facility] intake. However, the participant informed me that an intake had already been done a month ago, and that itwasn't yet time for his follow-up. documented in this encounter Plan of Treatment Upcoming Encounters Date Type Department Care Team (Late st Contact Info) Description 10/13/2024 9:30 AM EST Office Visit [facility] [address] [place], [place] [phone] Carroll Rboerts MD [address] [place] [address] documented as of this encounter Visit Diagnoses Not on filedocumented in this encounter Additional Health Concerns Assessment Noted Time PHQ-9 Depression Total Score: 0 05/26/20 24 9:56 AM EDT documented as of this encounter Care Teams Attendance Secretary Relationship Specialty Start Date End Date Galo Fang MD [address] [place] [address] PCP - General Internal Medicine 04/04/14 documented as of this encounter
--- OUTSIDE RECORDS SUMMARY | 2024-09-15 10:49 | XMS_ITS | Encounter Summary ---
Author Organization [employer] Address [address] [facility] 7t [place] [address] Care Team Providers Care Torsion Spring Coiling Machine Setter Name Role Phone Galo Fang MD Primary Care Provide r Reason for Visit * Reason Comments Med Refill Encounter Details Date Type Department Care Team ([facility] st Contact Info) Description 09/08/2024 Refill [facility] [address] [place], [place] [phone] Carroll Roberts MD [address] [place], [place] [phone] Uncomplicated opioid dependence (CMS/HCC) Social History Tobacco Use Types Packs/Day [...] AM EDT documented as of this encounter Plan of Treatment Upcoming Encounters Date Type Department Care Team (Late st Contact Info) Description 10/13/2024 9:30 AM EST Office Visit [facility] [address] [place] [phone] Carroll Roberts MD [address] [place] [phone] documented as of this encounter Visit Diagnoses Diagnosis Uncomplicated opioid dependence (CMS/HCC) documented in this encounter Additional Health Concerns Assessment Noted Time PHQ-9 Depression Total Score: 0 05/26/20 9:56 AM EDT documented as of this encounter Care Teams Torsion Spring Coiling Machine Setter Relationship Specialty Start Date End Date Galo Fang MD [address] [place] [place] [phone] PCP - General Internal Medicine 04/04/14 documented as of this encounter
--- OUTSIDE RECORDS SUMMARY | 2024-09-15 10:49 | XMS_ITS | Encounter Summary ---
Author Organization [email or web address] Address [address] [facility] 7t [place] [address] Care Team Providers Care Field Sales Trainer Name Role Phone Galo Fang MD Primary Care Provide r Reason for Visit * Reason Comments Pre-visit Planning SDOH Screening negat darron and Tobacco screening negative Encounter Details Date Type Department Care Team ([facility] Contact Info) Description 08/31/2024 Patient Outreach [facility] [address] [place], [place] [phone] Galo Fang MD [address] [place] [address] Pre-visit Planning (SDOH Screening negative and Tobacco screening negative) Social History Tobacco Use Types Packs/Day Years [...] as of this encounter Progress Notes * Imani Valero - 08/31/2024 12:47 PM EST CC Imani Weber placed successful outbound call to patient for pre-visit planning. Patient name and confirmed. Patient confirms appt date and time, and has transportation arrangements. Biggest concern for appointment at this time is would like to discuss HTN. Patient advised to bring to appointment a photo id and insurance card. Appropriate screenings completed in anticipation of appointment. documented in this encounter Plan of Treatment Upcoming Encounters Date Type Department Care Team (Late st Contact Info) Description 10/13/2024 9:30 AM EST Office Visit [facility] [address] [place] [address] Carroll Roberts MD [address] [place] [address] documented as of this encounter Visit Diagnoses Not on filedocumented in this encounter Additional Health Concerns Assessment Noted Time PHQ-9 Depression Total Score: 0 05/26/20 9:56 AM EDT documented as of this encounter Care Teams Field Sales Trainer Relationship Specialty Start Date End Date Galo Fang MD [address] [place] [address] PCP - General Internal Medicine 04/04/14 documented as of this encounter
--- OUTSIDE RECORDS SUMMARY | 2024-09-15 10:49 | XMS_ITS | Encounter Summary ---
Author Organization [employer] Address 75 [facility] 7t [place] [address] Care Team Providers Care Learning Disabilities Specialist Name Role Phone Galo Fang MD Primary Care Provide r Reason for Visit * Reason Comments Med Refill Encounter Details Date Type Department Care Team ([facility] st Contact Info) Description 08/17/2024 Refill [facility] [address] [place], [place] [phone] Galo Fang MD [address] [place], [place] [phone] Social History Tobacco Use Types Packs/Day Years [...] Description 10/13/2024 9:30 AM EST Office Visit [facility] [address] [place] [address] Carroll Roberts MD [address] [place] [address] documented as of this encounter Visit Diagnoses Not on filedocumented in this encounter Additional Health Concerns Assessment Noted Time PHQ-9 Depression Total Score: 0 05/26/20 9:56 AM EDT documented as of this encounter Care Teams Learning Disabilities Specialist Relationship Specialty Start Date End Date Galo Fang MD [address] [place] [address] PCP - General Internal Medicine 04/04/14 documented as of this encounter
--- OUTSIDE RECORDS SUMMARY | 2024-09-15 10:49 | XMS_ITS | Encounter Summary ---
Author Organization [employer] Address [address] [facility] 7t [place] [address] Care Team Providers Care Fiscal Agent Name Role Phone Galo Fang MD Primary Care Provide r Encounter Details Date Type Department Care Team (Latest Contact Info) Description 08/18/2024 Travel Social History Tobacco Use Types Packs/Day Years Used Date Smoking Tobacco: Former Cigarettes Passive Smoke Exposure: Past Smokeless Tobacco: Never Depression Answer Date Recorded Patient Health Questionnaire-9 Score 0 05/26/2024 Patient Health Questionnaire-9 Score 0 05/26/2024 Last PHQ-9: Questionnaire Data Not on file 1 Housing Stability Answer Date Recorded What is your housing situation today? I have arnaldotomeka jaimes 07/01/[address] you [...] Description 10/13/2024 9:30 AM EST Office Visit [facility] [address] [place] [address] Carroll Roberts MD [address] [place] [address] documented as of this encounter Visit Diagnoses Not on filedocumented in this encounter Additional Health Concerns Assessment Noted Time PHQ-9 Depression Total Score: 0 05/26/20 24 9:56 AM EDT documented as of this encounter Care Teams Fiscal Agent Relationship Specialty Start Date End Date Galo Fang MD [address] [place] [address] PCP - General Internal Medicine 04/04/14 documented as of this encounter
--- OUTSIDE RECORDS SUMMARY | 2024-09-15 10:50 | XMS_ITS | Encounter Summary ---
Author Organization [employer] Address [address] [facility] 7t [place] [address] Care Team Providers Care Composite Bond Technician Name Role Phone Galo Fang MD Primary Care Provide r Reason for Visit * Reason Comments Med Refill Encounter Details Date Type Department Care Team ([facility] st Contact Info) Description 10/08/2023 Refill [facility] [address] [place], [place] [phone] Carroll Roberts MD [address] [place], [place] [phone] Uncomplicated opioid dependence (CMS/HCC) Social History Tobacco Use Types Packs/Day Years Used Date Smoking Tobacco: Former Cigarettes Passive Smoke Exposure: Past Smokeless Tobacco: Never Depression Answer Date Recorded Patient Health Questionnaire-9 Score 0 07/01/2023 Patient Health Questionnaire-9 Score 0 07/01/2023 Last PHQ-9: Questionnaire Data Not on file 1 08/31/2022 Housing Stability Answer Date Recorded What is [...] Date Recorded Patient Health Questionnaire-2 Score 0 07/01/2023 Sex and Gender Information Value Date Recorded Sex Assigned at Male 06/15/2022 10:16 AM EDT Legal Sex Male 10:16 AM EDT Gender Identity Male 06/15/2022 10:16 AM EDT Sexual Orientation Straight 06/15/2022 10 :16 AM EDT documented as of this encounter Plan of Treatment Upcoming Encounters Date Type Department Care Team (Late st Contact Info) Description 10/13/2024 9:30 AM EST Office Visit [facility] [address] [place], [place] [phone] Carroll Roberts MD [address] [place] [address] documented as of this encounter Visit Diagnoses Diagnosis Uncomplicated opioid dependence (CMS/HCC) documented in this encounter Additional Health Concerns Assessment Noted Time PHQ-9 Depression Total Score: 0 07/01/20 23 1:10 PM EST documented as of this encounter Care Teams Composite Bond Technician Relationship Specialty Start Date End Date Galo Fang MD [address] [place] [phone] PCP - General Internal Medicine 04/04/14 documented as of this encounter
--- OUTSIDE RECORDS SUMMARY | 2024-09-15 10:50 | XMS_ITS | Encounter Summary ---
Author Organization [employer] [facility] Address [address] [facility] 7t [place] [address] Care Team Providers Care Lead Press Operator Name Role Phone Galo Fang MD Primary Care Provide r Reason for Visit * Reason Onset Date Comments Med Refill TP 01/02/2023 Encounter Details Date Type Department Care Team (Late st Contact Info) Description 01/02/2023 Telephone [facility] [address] [place] [phone] Carroll Roberts MD [address] [place], [place] [phone] Med Refill; TP Social History Tobacco Use Types Packs/Day Years Used Date Smoking Tobacco: Never Assessed Sex and Gender Information Value Date Recorded Sex Assigned at Male 06/15/2022 10:16 AM EDT Legal Sex Male 10:16 AM EDT Gender Identity Male 06/15/2022 10:16 AM EDT Sexual Orientation Straight 06/15/2022 10 :16 AM EDT documented as of this encounter Miscellaneous Notes * Telephone Encounter - Margaux Vazquez - 01/04/2023 11:24 AM EDT Pt walked in, he wants to change PCP because Dr. Moulton is only available Tuesdays and s and wants PCP with more availability. documented in this encounter Plan of Treatment Upcoming Encounters Date Type Department Care Team (Late st Contact Info) Description 10/13/2024 9:30 AM EST Office Visit [facility] [address] [place] [address] Carroll Roberts MD [address] [place] [address] documented as of this encounter Visit Diagnoses Diagnosis Uncomplicated opioid dependence (CMS/HCC) documented in this encounter Care Teams Lead Press Operator Relationship Specialty Start Date End Date Galo Fang MD [address] [place] [address] PCP - General Internal Medicine 04/04/14 documented as of this encounter
--- OUTSIDE RECORDS SUMMARY | 2024-09-15 10:50 | XMS_ITS | Encounter Summary ---
Author Organization [facility] [facility] Address 75 [facility] 7t [place] [address] Care Team Providers Care Exchange Specialist Name Role Phone Galo Fang MD Primary Care Provide r Encounter Details Date Type Department Care Team (Late st Contact Info) Description 12/23/2022 Abstract [facility] [address] [place] [address] [phone] Galo Fang MD [address] [place] [address] [phone] Social History Tobacco Use Types Packs/Day Years [...] Description 10/13/2024 9:30 AM EST Office Visit [facility] [address] [place] [phone] Carroll Roberts MD [address] [place] [address] [phone] documented as of this encounter Procedures Procedure Name Priority Date/Time Associated Diagnosis Comments COLONOSCOPY Routine 07/29/2018 documented in this encounter Results * Colonoscopy (07/29/2018) Colonoscopy Normal Normal 07/29/2018 Narrative Georgia Rubio - 07/29/2018 1:52 PM EST Recommended 10 year follow up us Historical Provider HEALTH MAINTENANCE Final Result documented in this encounter Visit Diagnoses Not on filedocumented in this encounter Care Teams Exchange Specialist Relationship Specialty Start Date End Date Galo Fang MD [address] [place] [address] PCP - General Internal Medicine 04/04/14 documented as of this encounter
--- OUTSIDE RECORDS SUMMARY | 2024-09-15 10:50 | XMS_ITS | Encounter Summary ---
Author Organization [employer] Address [address] [facility] 7t [place] [address] Care Team Providers Care Material Attendant Name Role Phone Galo Fang MD Primary Care Provide r Encounter Details Date Type Department Care Team (Latest Contact Info) Description 09/12/2024 Travel Social History Tobacco Use Types Packs/Day [...] Description 10/13/2024 9:30 AM EST Office Visit [facility]INE [address] [place] [address] Carroll Roberts MD [address] [place] [address] documented as of this encounter Visit Diagnoses Not on filedocumented in this encounter Additional Health Concerns Assessment Noted Time PHQ-9 Depression Total Score: 0 05/26/20 24 9:56 AM EDT documented as of this encounter Care Teams Material Attendant Relationship Specialty Start Date End Date Galo Fang MD [address] [place] [address] PCP - General Internal Medicine 04/04/14 documented as of this encounter
--- OUTSIDE RECORDS SUMMARY | 2024-09-15 10:50 | XMS_ITS | Encounter Summary ---
Author Organization [employer] [facility] Address [address] [place] [address] 7 [place] [address] Care Team Providers Care Truss Puller Helper Name Role Phone Galo Fang MD Primary Care Provide r Reason for Visit * Reason Comments Med Refill Encounter Details Date Type Department Care Team ([facility] Contact Info) Description 11/07/2022 Refill [facility]INE [address] [place] [phone] Carroll Roberts MD [address] [place] [address] Uncomplicated opioid dependence (CMS/HCC) Social History Tobacco [...] Encounters Date Type Department Care Team (Late Contact Info) Description 10/13/2024 9:30 AM EST Office Visit [facility] [address] [place] [phone] Carroll Roberts MD [address] [place] [phone] documented as of this encounter Visit Diagnoses Diagnosis Uncomplicated opioid dependence (CMS/HCC) documented in this encounter Care Teams Truss Puller Helper Relationship Specialty Start Date End Date Galo Fang MD [address] [place] [phone] PCP - General Internal Medicine 04/04/14 documented as of this encounter
--- OUTSIDE RECORDS SUMMARY | 2024-09-15 10:50 | XMS_ITS | Encounter Summary ---
Author Organization [facility] Address [address] [place] [address] 7 [place] [address] Care Team Providers Care Azure Principal Solution Specialist Name Role Phone Galo Fang MD Primary Care Provide r Reason for Visit * Reason Comments Med Refill Encounter Details Date Type Department Care Team ([facility] Contact Info) Description 03/02/2023 Refill [facility] [address] [place] [address] Carroll Roberts MD [address] [place] [phone] Uncomplicated opioid dependence (CMS/HCC) Social History Tobacco [...] 10/13/2024 9:30 AM EST Office Visit [facility] [address] [place] [phone] Carroll Roberts MD [address] [place] [address] documented as of this encounter Visit Diagnoses Diagnosis Uncomplicated opioid dependence (CMS/HCC) documented in this encounter Care Teams Azure Principal Solution Specialist Relationship Specialty Start Date End Date Galo Fang MD [address] [place] [phone] PCP - General Internal Medicine 04/04/14 documented as of this encounter
--- OUTSIDE RECORDS SUMMARY | 2024-09-15 10:50 | XMS_ITS | Encounter Summary ---
Author Organization [employer] Address [address] [facility] [address] [place] [address] Care Team Providers Care Senior Loan Officer Name Role Phone Galo Fang MD Primary Care Provide r Reason for Visit * Reason Comments Diabetes Encounter Details Date Type Department Care Team ([facility] st Contact Info) Description 09/12/2024 1:00 PM EST Office Visit [facility] [address] [place] [address] [phone] Galo Fang MD [address] [place], [place] [phone] Type 2 diabetes mellitus with diabetic polyneuropathy, with long-term current use of insulin (CMS/HCC) (Primary Dx); Essential hypertension; Chronic midline low back pain without sciatica; Other osteoporosis without current pathological fracture; Mild intermittent asthma without complication; Cardiomyopathy, unspecified type (CMS/HCC); MILTON positive; Mixed hyperlipidemia; Bicuspid aortic valve; History of aortic valve replacement; Aortic valve stenosis, etiology of cardiac valve disease unspecified; Morbid obesity (CMS/HCC); Preventative health care; Depressive disorder Social History Tobacco Use Types Packs/Day Years [...] AM EDT documented as of this encounter Last Filed Vital Signs Vital Sign Reading Time Taken Comments Blood Pressure 130/82 09/12/2024 1:11 PM EST Pulse 94 09/12/2024 12:48 PM EST Temperature 36.4 ??C (97.5 ??F) 09/12/2024 12:[address] Respiratory Rate 20 09/12/2024 12:48 PM EST Oxygen Saturation 98% 09/12/2024 12:48 PM EST Inhaled Oxygen Concentration - - Weight 95 kg (209 lb 6.4 oz) 09/12/2024 12:48 PM EST Height 170.2 cm (5' 7 ) 09/12/2024 12:48 PM EST Body Mass Index 32.8 09/12/2024 12:48 PM EST documented in this encounter Progress Notes * Galo Ramey MD - 09/12/2024 1:00 PM EST SUBJECTIVE Nemesio Ramírez is a 64 y.o. male who presents for Diabetes. Diabetes He presents for his follow-up diabetic visit. He has type 2 diabetes mellitus. Pertinent negatives for hypoglycemia include no headaches. Pertinent negatives for diabetes include no chest pain. Review of Systems Constitutional: Negative for fever. HENT: Negative for sore throat. Respiratory: Negative for cough and shortness of breath. Cardiovascular: Negative for chest pain. Gastrointestinal: Negative for abdominal pain. Neurological: Negative for headaches. Allergies Allergen Reactions Lisinopril Other reaction(s): itchy throat OBJECTIVE Vitals: 09/12/24 1248 09/12/24 1311 BP: (!) 133/91 130/82 BP Location: Left arm Left arm Patient Position: Sitting Sitting BP Cuff Size: Adult Pulse: 94 Resp: 20 Temp: 97.5 ??F (36.4 ??C) TempSrc: Temporal SpO2: 98% Weight: 209 lb 6.4 oz (95 kg) Height: 5' 7 (1.702 m) Physical Exam Vitals reviewed. Constitutional: Appearance: Normal appearance. HENT: Head: Normocephalic and atraumatic. Right Ear: External ear normal. Left Ear: External ear normal. Nose: Nose normal. Mouth/Throat: Mouth: Mucous membranes are moist. Eyes: Conjunctiva/sclera: Conjunctivae normal. Cardiovascular: Rate and Rhythm: Normal rate and regular rhythm. Pulmonary: Effort: Pulmonary effort is normal. Breath sounds: Normal breath sounds. Skin: General: Skin is warm. Neurological: Mental Status: He is alert. Mental status is at baseline. Assessment/Plan Problem List Items Addressed This Visit Type 2 diabetes mellitus with diabetic polyneuropathy (CMS/HCC) - Primary Patient is here for a f/u DM controlled Under the care of Endocrinology He is on a regimen of: Mounjaro 5mg, Tresiba 40 units , Humalog 14 before breakfast, 16 units before lunch and 18 units before dinner, Off Metformin ,( Pt stopped due to cramps ). Stopped Trulicity and Ozempic due to GI side effects. Stopped Jardiance 25 mg po daily, Hgb A1c 09/12/2024: 6.8 from 8.3 from 8.8 from 9.7 From 10.6 Eye exam was last done by Dr. Littlejohn (database admin) No diabetic retinopathy. 07/31/2024 Microalbumin checked on: 11/29/2023 was: 7 Pt is on ARB (lisinopril caused him itchy throat and ? angioedema ? ) . Foot check risk of zero Pt reports compliance with Asa 81 mg po daily Plan: as per Assistant Professor Of Surgery Pt advised to: adhere to diabetic diet check your blood sugars regularly check your feet on a daily basis f/u 4 months Relevant Orders POCT Glucose (Completed) POCT HGB A1C (Completed) Essential hypertension Patient is here for a f/u BP currently controlled He is on a regimen of: Valsartan 80 mg po daily. Pt tells me he decided to stop Carvedilol 12.5 mg po BID (prescribed by Cardiology) Given adequate blood pressure control will continue with current medical regimen. Most recent electrolytes, Bun and Creatinine done on: Lab Results Component Value Date NA 135 06/07/2024 NA 136 11/29/2023 K 4.5 06/07/2024 K 4.5 11/29/2023 CL 100 06/07/2024 CL 101 11/29/2023 BUN 20 (H) 06/07/2024 BUN 17 (H) 11/29/2023 CREATININE 0.90 06/07/2024 CREATININE 0.81 11/29/2023 were within normal limits. patient advised to adhere to a low sodium diet, encouraged about medication compliance, counseled about weight loss. 4 month follow up Chronic low back pain Pt with chronic lbp not a good candidate for NSAIDS Pt was referred to [facility], pt did not go. plain film of LS spine 11/15/2023 Mild upper lumbar spine spondylolysis, most prominent at T12-L1 and L1-L2 levels. Under the care of [facility] pain Management, they recommended PT and if no improvement would consider steroid injections On Baclofen 5 mg po TID PRN Other osteoporosis without current pathological fracture DEXA T score AP spine -2.5 and h/o mild ant wedge compression T11 vertebrae. Calcium intake is adequete (consumes 4 glasses of milk daily) and he has normal spep, phos, calcium, albumin, tsh, vit d. As per Endocrinology note. Endocrine mentionedthey would complete work up with testosterone, upep, 2r hour urine for calcium/creat. They briefly discussed treatment options. Case reviewed with Dr. Fletcher.Anupam is to consider Tymlos/Forteo. Patient will f/u with Dr. Fletcher. Mild intermittent asthma Doing well, no recent exacerbation Cardiomyopathy (CMS/HCC) Under the care of Cardiology last seen 05/15/2024 MILTON positive Evaluated by Rheumatology 06/28/2024 He reviewed negative serologies, added Rheumatoid factor that was not completed and referred patient to PT Hyperlipidemia Here for a f/u Most recent lipid profile from: Lab Results Component Value Date TRIG 75 11/29/2023 TRIG 213 (H) 04/06/2023 CHOL 146 11/29/2023 CHOL 158 04/06/2023 LDLCHOLCAL 96 11/29/2023 LDLCHOLCAL 83 04/06/2023 HDL 35 (L) 11/29/2023 HDL 33 (L) 04/06/2023 Currently on a regimen of: Fish Oil 1000 mg po TID . For now will continue with current regimen. Repeat Lipid profile advised to try to adhere to a low cholesterol diet, counseled and educated about diet and exercise,Patient encouraged to come up with a personal goal for weight loss. Relevant Orders Lipid Panel, Standard Bicuspid aortic valve He is now s/p Aortic valve replacement surgery with bioprosthetic valve. Last seen by Cardiology 05/15/2024 History of aortic valve replacement Here for a f/u Pt with Hx of severe aortic valve stenosis. Echocardiogram from 2017 showed moderate aortic stenosis and EF 55-60% Pt is s/p dobutamine stress test which showed a gradient of 62mmHg through aortic valve, he also had cardiac cath which he was told was non obstructive, He is now s/p Aortic valve replacement surgery with bioprosthetic valve. Last seen by Cardiology 05/15/2024 Aortic valve stenosis He is now s/p Aortic valve replacement surgery with bioprosthetic valve. Last seen by Cardiology 05/15/2024 Morbid obesity (CMS/HCC) Patient has been counseled and educated about diet and exercise. Personal goal of weight loss discussedPatient has comorbidity of: DM Dietary Recommendations: Fruits, vegetables, whole grains, protein foods, and fat-free or low-fat dairy products are healthychoices. Eat different types of protein foods in your diet. This can include seafood, lean meats, poultry, beans, peas, lentils, nuts, seeds, soy products, and eggs. Limit foods and beverages higher in added sugars, saturated fat, and sodium. 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 He clearly benefits from having one. Patient denies any suicidal thoughts or ideations. Has crisis numbers and knows to use them if needed. 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 He clearly benefits from having one. Patient denies any suicidal thoughts or ideations. Has crisis numbers and knows to use them if needed. * Assessment & Plan Note - Galo Ramey MD - 09/12/2024 12:49 PM EST Associated Problem(s): Morbid obesity (CMS/HCC) Patient has been counseled and educated about diet and exercise. Personal goal of weight loss discussedPatient has comorbidity of: DM Dietary Recommendations: Fruits, vegetables, whole grains, protein foods, and fat-free or low-fat dairy products are healthychoices. Eat different types of protein foods in your diet. This can include seafood, lean meats, poultry, beans, peas, lentils, nuts, seeds, soy products, and eggs. Limit foods and beverages higher in added sugars, saturated fat, and sodium. Exercise Recommendations: At least 150 minutes of moderate-intensity physical activity per week, or an equivalent combinationof moderate- and vigorous-intensity activity * Assessment & Plan Note - Galo Ramey MD - 09/12/2024 9:27 AM EST Associated Problem(s): Aortic valve stenosis He is now s/p Aortic valve replacement surgery with bioprosthetic valve. Last seen by Cardiology 05/15/2024 * Assessment & Plan Note - Galo Ramey MD - 09/12/2024 9:26 AM EST Associated Problem(s): Bicuspid aortic valve He is now s/p Aortic valve replacement surgery with bioprosthetic valve. Last seen by Cardiology 05/15/2024 * Assessment & Plan Note - Galo Ramey MD - 09/12/2024 9:26 AM EST Associated Problem(s): History of aortic valve replacement Here for a f/u Pt with Hx of severe aortic valve stenosis. Echocardiogram from 2017 showed moderate aortic stenosis and EF 55-60% Pt is s/p dobutamine stress test which showed a gradient of 62mmHg through aortic valve, he also had cardiac cath which he was told was non obstructive, He is now s/p Aortic valve replacement surgery with bioprosthetic valve. Last seen by Cardiology 05/15/2024 * Assessment & Plan Note - Galo Ramey MD - 09/12/2024 9:25 AM EST Associated Problem(s): Preventative health care PSA 04/06/2023 : Normal, repeat ordered Colonoscopy: 07/29/2018 at [facility] diverticulosis * Assessment & Plan Note - Galo Ramey MD - 09/12/2024 9:24 AM EST Associated Problem(s): Hyperlipidemia Here for a f/u Most recent lipid profile from: Lab Results Component Value Date TRIG 75 11/29/2023 TRIG 213 (H) 04/06/2023 CHOL 146 11/29/2023 CHOL 158 04/06/2023 LDLCHOLCAL 96 11/29/2023 LDLCHOLCAL 83 04/06/2023 HDL 35 (L) 11/29/2023 HDL 33 (L) 04/06/2023 Currently on a regimen of: Fish Oil 1000 mg po TID . For now will continue with current regimen. Repeat Lipid profile advised to try to adhere to a low cholesterol diet, counseled and educated about diet and exercise,Patient encouraged to come up with a personal goal for weight loss. * Assessment & Plan Note - Galo Ramey MD - 09/12/2024 9:23 AM EST Associated Problem(s): MILTON positive Evaluated by Rheumatology 06/28/2024 He reviewed negative serologies, added Rheumatoid factor that was not completed and referred patient to PT * Assessment & Plan Note - Galo Ramey MD - 09/12/2024 9:21 AM EST Associated Problem(s): Type 2 diabetes mellitus with diabetic polyneuropathy (CMS/HCC) Patient is here for a f/u DM controlled Under the care of Endocrinology He is on a regimen of: Mounjaro 5mg, Tresiba 40 units , Humalog 14 before breakfast, 16 units before lunch and 18 units before dinner, Off Metformin ,( Pt stopped due to cramps ). Stopped Trulicity and Ozempic due to GI side effects. Stopped Jardiance 25 mg po daily, Hgb A1c 09/12/2024: 6.8 from 8.3 from 8.8 from 9.7 From 10.6 Eye exam was last done by Dr. Littlejohn (database admin) No diabetic retinopathy. 07/31/2024 Microalbumin checked on: 11/29/2023 was: 7 Pt is on ARB (lisinopril caused him itchy throat and ? angioedema ? ) . Foot check risk of zero Pt reports compliance with Asa 81 mg po daily Plan: as per Assistant Professor Of Surgery Pt advised to: adhere to diabetic diet check your blood sugars regularly check your feet on a daily basis f/u 4 months * Assessment & Plan Note - Galo Ramey MD - 09/12/2024 9:19 AM EST Associated Problem(s): Essential hypertension Patient is here for a f/u BP currently controlled He is on a regimen of: Valsartan 80 mg po daily. Pt tells me he decided to stop Carvedilol 12.5 mg po BID (prescribed by Cardiology) Given adequate blood pressure control will continue with current medical regimen. Most recent electrolytes, Bun and Creatinine done on: Lab Results Component Value Date NA 135 06/07/2024 NA 136 11/29/2023 K 4.5 06/07/2024 K 4.5 11/29/2023 CL 100 06/07/2024 CL 101 11/29/2023 BUN 20 (H) 06/07/2024 BUN 17 (H) 11/29/2023 CREATININE 0.90 06/07/2024 CREATININE 0.81 11/29/2023 were within normal limits. patient advised to adhere to a low sodium diet, encouraged about medication compliance, counseled about weight loss. 4 month follow up * Assessment & Plan Note - Galo Ramey MD - 09/12/2024 9:18 AM EST Associated Problem(s): Cardiomyopathy (CMS/HCC) Under the care of Cardiology last seen 05/15/2024 * Assessment & Plan Note - Galo Ramey MD - 09/12/2024 9:17 AM EST Associated Problem(s): Mild intermittent asthma Doing well, no recent exacerbation * Assessment & Plan Note - Galo Ramey MD - 09/12/2024 9:16 AM EST Associated Problem(s): Other osteoporosis without current pathological fracture DEXA T score AP spine -2.5 and h/o mild ant wedge compression T11 vertebrae. Calcium intake is adequete (consumes 4 glasses of milk daily) and he has normal spep, phos, calcium, albumin, tsh, vit d. As per Endocrinology note. Endocrine mentionedthey would complete work up with testosterone, upep, 2r hour urine for calcium/creat. They briefly discussed treatment options. Case reviewed with Dr. Fletcher.Anupam is to consider Tymlos/Forteo. Patient will f/u with Dr. Fletcher. * Assessment & Plan Note - Galo Ramey MD - 09/12/2024 9:07 AM EST Associated Problem(s): Chronic low back pain Pt with chronic lbp not a good candidate for NSAIDS Pt was referred to [facility], pt did not go. plain film of LS spine 11/15/2023 Mild upper lumbar spine spondylolysis, most prominent at T12-L1 and L1-L2 levels. Under the care of [facility] pain Management, they recommended PT and if no improvement would consider steroid injections On Baclofen 5 mg po TID PRN documented in this encounter Plan of Treatment Upcoming Encounters Date Type Department Care Team (Late st Contact Info) Description 10/13/2024 9:30 AM EST Office Visit [facility] [address] [place] [address] Carroll Roberts MD [address] [place] [address] Scheduled Orders Name Type Priority Associated Diagnoses Orde r Schedule Lipid Panel, Standard Lab Routine Mixed hyperlipidemia Ordered: 09/12/2024 PSA, Screen Lab Routine Preventative health care Ordered: 09/12/2024 documented as of this encounter Procedures Procedure Name Priority Date/Time Associated Diagnosis Comments POCT GLYCATED HEMOGLOBIN, TOTAL Routine 09/12/2024 1:00 PM EST Type 2 diabetes mellitus with diabetic polyneuropathy, with long-term current use of insulin ([facility]) POCT GLUCOSE Routine 09/12/2024 12:55 PM EST Type 2 diabetes mellitus with diabetic polyneuropathy, with long-term current use of insulin ([facility]) documented in this encounter Results * (ABNORMAL) POCT HGB A1C (09/12/2024 1:00 PM EST) Hemoglobin A1C 6.8(A) 4.0 - 6.0 % QC Media Lot # [id number] Lot# Expiration Date Blood 09/12/2024 1:00 PM EST us Galo Ramey MD POINT OF CARE TEST EN TER/EDIT ORDERABLES Final Result * POCT Glucose (09/12/2024 12:55 PM EST) Glucose Blood, POC 128 60 - 200 mg/dL QC Media Lot # [id number] Lot# Expiration Date ,025 Blood Capillary blood specimen / Unknown 09/12/2024 12:55 PM EST us Galo Ramey MD POINT OF CARE TEST EN TER/EDIT ORDERABLES Final Result documented in this encounter Visit Diagnoses Diagnosis Type 2 diabetes mellitus with diabetic polyneuropathy, with long-term current use of insulin ([facility])- Primary Essential hypertension Unspecified essential hypertension Chronic midline low back pain without sciatica Other osteoporosis without current pathological fracture Mild intermittent asthma without complication Cardiomyopathy, unspecified type ([facility]) MILTON positive Mixed hyperlipidemia Bicuspid aortic valve Congenital insufficiency of aortic valve History of aortic valve replacement Heart valve replaced by other means Aortic valve stenosis, etiology of cardiac valve disease unspecified Morbid obesity ([facility]) Morbid obesity Preventative health care Routine general medical examination at a health care facility Depressive disorder Depressive disorder, not elsewhere classified documented in this encounter Additional Health Concerns Assessment Noted Time PHQ-9 Depression Total Score: 0 05/26/20 24 9:56 AM EDT documented as of this encounter Care Teams Senior Loan Officer Relationship Specialty Start Date End Date Galo Fang MD [address] [place] [address] PCP - General Internal Medicine 04/04/14 documented as of this encounter
--- OUTSIDE RECORDS SUMMARY | 2024-09-15 10:50 | XMS_ITS | Clinical Summary ---
Author Organization [employer] Address [address] [facility] [address] [place] [address] Care Team Providers Care Real Time Operator Name Role Phone Galo Fang MD Primary Care Provide r Allergies Active Allergy Reactions Criticality Noted Date Comments Lisinopril 06/29/2017 Other reaction(s): itchy throat Medications albuterol (2.5 MG/3ML) 0.083% nebulizer solution Inhale 3 mL every 8 (eight) hours. 021 Active clotrimazole (Lotrimin) 1 % creamIndication s:Tinea corporis APPLY TO AFFECTED AREA TWICE A DAY IN THE MORNING AND IN THE EVENING 60 g 022 Active fluticasone (Flovent HFA) 220 MCG/ACT inhalerIndicati ons:Mild intermittent asthma without complication Take 1 puff by mouth twice a day 12 g 6 023 Active valsartan (Diovan) 80 MG tablet Take 80 mg by mouth 2 times daily. 023 Active Continuous Blood Gluc Sensor (FreeStyle Yahaira 2 Sensor) misc USE DIRECTED EVERY 2 WEEKS 023 Active Continuous Blood Gluc Furnace Mason (FreeStyle Yahaira 2 Laporte) device USE DIRECTED 023 Active FREESTYLE LITE test strip TEST 3 TIMES A DAY DIRECTED 023 Active Senna-Time 8.6 MG tabletIndicatio ns:Constipation , unspecified constipation type TAKE 1-2 TABLET(S) BY MOUTH DAILY AT BEDTIME NEEDED FOR CONSTIPATION 180 tablet 3 024 Active naloxone (Narcan) 4 mg/0.1 mL nasal spray ADMINISTER 1 SPRAY INTO ONE NOSTRIL. CALL 911. REPEAT AFTER 2-3 MIN IF NO OR MINIMAL RESPONSE 2 each 1 024 Active Tresiba FlexTouch 200 UNIT/ML injection INJECT 80 UNITS AT BEDTIME 9 mL 5 024 Active cetirizine (ZyrTEC) 10 MG tabletIndicatio ns:Seasonal allergies TAKE 1 TABLET BY MOUTH EVERY DAY IN THE MORNING 90 tablet 1 024 Active insulin lispro (HumaLOG) 100 UNIT/ML injection INJECT 14 UNITS SUBCUTANEOUSLY BEFORE BREAKFAST, 16 UNITS BEFORE LUNCH, AND 18 UNITS BEFORE SUPPER 10 mL 6 024 Active acetaminophen (Tylenol) 325 MG tabletIndicatio ns:Chronic midline low back pain without sciatica TAKE 2 TABLETS BY MOUTH EVERY 8 HOURS NEEDED FOR PAIN 90 tablet 1 024 Active polyethylene glycol, PEG, 3350 (GaviLAX) 17 GM/SCOOP powder TAKE (17G) BY ORAL ROUTE EVERY DAY MIXED WITH 8 OZ. WATER, JUICE, COFFEE OR TEA 510 g 3 024 Active docusate sodium (Colace) 100 MG capsuleIndicati ons:Constipatio n, unspecified constipation type 1or 2 capsules PO qHS prn constipation. 180 capsule 1 024 Active Mounjaro 5 MG/0.5ML solution auto-injector 5 MG (0.5 ML) SUBCUTANEOUSLY EVERY WEEK FOR 28 DAYS 024 Active omeprazole (PriLOSEC) [address] capsuleIndicati ons:Gastroesoph ageal reflux disease without esophagitis TAKE 1 CAPSULE BY MOUTH EVERY DAY IN THE MORNING 90 capsule 1 024 Active baclofen (Lioresal) 10 MG tablet TAKE 1/2 TABLET BY MOUTH 3 TIMES DAILY. 45 tablet 025 Active Diclofenac Sodium 1 % gel APPLY 2 GRAMS TOPICALLY 4 TIMES A DAY 100 g 2 025 Active Buprenorphine HCl-Naloxone HCl (Suboxone) 8-2 MG SL filmIndications :Uncomplicated opioid dependence (CMS/HCC) Place 1 Film under the tongue Once per day. 28 Film 025 2024 Active buprenorphine-n aloxone (Suboxone) 2-0.5 MG per sublingual filmIndications :Uncomplicated opioid dependence (CMS/HCC) Place 1 Film under the tongue Once per day. 28 Film 025 2024 Active amiodarone (Pacerone) 200 MG tablet Take 1 tablet by mouth. 2024 Discontinued(T herapy completed) spironolactone (Aldactone) 25 MG tablet Take 1 tablet by mouth 1 (one) time each day. 2024 Discontinued(T herapy completed) dicyclomine (Bentyl) 10 MG capsuleIndicati ons:Gastroesoph ageal reflux disease, unspecified whether esophagitis present TAKE 1 CAPSULE BY MOUTH THREE TIMES A DAY NEEDED 90 capsule 023 2024 Discontinued(T herapy completed) carvedilol (Coreg) 12.5 MG tablet Take 12.5 mg by mouth 2 times daily. 023 2024 Discontinued(P atient refused) carbamide peroxide (Murine Ear) 6.5 % otic solutionIndicat ions:Impacted cerumen, unspecified laterality INSTILL 5 DROP BY OTIC ROUTE 2 TIMES EVERY DAY INTO AFFECTED EAR(S) FOR NO LONGER THAN 5 DAYS 15 mL 3 023 2024 Discontinued(T herapy completed) Jardiance 25 MG Take 25 mg by mouth in the morning. 023 2024 Discontinued(T herapy completed) metFORMIN XR (Glucophage-XR) 500 MG 24 hr tablet Take 1,000 mg by mouth 2 times daily. 023 2024 Discontinued(T herapy completed) baclofen (Lioresal) 10 MG tablet TAKE 0.5 TABLETS (5 MG) BY MOUTH 3 TIMES DAILY. 45 tablet 024 2024 Discontinued Diclofenac Sodium 1 % gel APPLY 2 G TOPICALLY 4 TIMES A DAY 100 g 2 024 2024 Discontinued Buprenorphine HCl-Naloxone HCl (Suboxone) 8-2 MG SL filmIndications :Uncomplicated opioid dependence (CMS/HCC) Place 1 Film under the tongue Once per day. 28 Film 1 024 2024 Discontinued(R eorder (will not trigger notification to Pharmacy)) buprenorphine-n aloxone (Suboxone) 2-0.5 MG per sublingual filmIndications :Uncomplicated opioid dependence (CMS/HCC) Place 1 Film under the tongue Once per day. 28 Film 1 024 2024 Discontinued(R eorder (will not trigger notification to Pharmacy)) Active Problems Problem Noted Date Diagnosed Date Other osteoporosis without current pathological fracture 09/12/2024 Overview (09/12/2024): Seen on DEXA scan 06/01/2024 Previous x-ray showed: mild anterior wedge compression of the T11 vertebral body. Patient being followed by Endocrinology Assessment & Plan (09/12/2024 9:16 AM EST): DEXA T score AP spine -2.5 and h/o mild ant wedge compression T11 vertebrae. Calcium intake is adequete (consumes 4 glasses of milk daily) and he has normal spep, phos, calcium, albumin, tsh, vit d. As per Endocrinology note. Endocrine mentioned they would complete work up with testosterone, upep, 2r hour urine for calcium/creat. They briefly discussed treatment options. Case reviewed with Dr. Fletcher.Anupam is to consider Tymlos/Forteo. Patient will f/u with Dr. Fletcher. MILTON positive 05/23/2024 Assessment & Plan (09/12/2024 9:23 AM EST): Evaluated by Rheumatology 06/28/2024 He reviewed negative serologies, added Rheumatoid factor that was not completed and referred patient to PT Assessment & Plan (05/23/2024 2:04 PM EDT): Evaluated by Rheumatology 05/17/2024 Work up in process Right hand pain 11/09/2023 Assessment & Plan (05/23/2024 2:06 PM EDT): Plain films showed: ulnar deviation of the metacarpals and ulnar deviation of the second through fifth phalanges. There is marked narrowing of the radiocarpal joint. There is marked narrowing of the first and third through fifth metacarpophalangeal joints. There is joint space narrowing and osteophyte formation at the DIP joints of the second and fifth finger and the PIP joint of the little finger. Small erosions are seen within the distal ulna, head of the first and second metacarpal and the middle phalanx of the index finger. IMPRESSION: 1. Findings consistent with rheumatoid arthritis. 2. No acute bony abnormality. Pt was seen by Transporter Driver 05/17/2024 work up in progress Assessment & Plan (11/09/2023 2:33 PM EDT): X 2 months Pt reports an injury at home with a mattress Did not seek medical attention On exam today; no redness, no swelling, there is tenderness to palpation 4th 5th MCP joints. Pt unable to make a full fist. Plan: Plain films, Referral to Dr Hernandez Obtain inflammatory markers as well Chronic low back pain 04/06/2023 Assessment & Plan (09/12/2024 9:07 AM EST): Pt with chronic lbp not a good candidate for NSAIDS Pt was referred to [facility], pt did not go. plain film of LS spine 11/15/2023 Mild upper lumbar spine spondylolysis, most prominent at T12-L1 and L1-L2 levels. Under the care of [facility], they recommended PT and if no improvement would consider steroid injections On Baclofen 5 mg po TID PRN Assessment & Plan (11/09/2023 2:31 PM EDT): Pt with previous c/o acute om chronic lbp currently back pain is worse per his report intensity 6/10 radiation to right leg not a good candidate for NSAIDS, continues to decline PT Pt was referred to [facility], pt did not go. Previous plain film of LS spine unremarkable Plan:Plain films LS Spine, right hip Refer back to [facility] Assessment & Plan (04/06/2023 1:21 PM EDT): Pt with previous c/o acute om chronic lbp currently back pain is worse per his report intensity 4/10 no radiation not a good candidate for NSAIDS, continues to decline PT Pt was referred to [facility], pt did not go. plain film of LS spine unremarkable Preventative health care 03/02/2023 Assessment & Plan (09/12/2024 9:25 AM EST): PSA 04/06/2023 : Normal, repeat ordered Colonoscopy: 07/29/2018 at [facility] diverticulosis Assessment & Plan (07/01/2023 1:02 PM EST): PSA 04/06/2023 : Normal Colonoscopy: 07/29/2018 at [facility] diverticulosis Assessment & Plan (04/06/2023 1:22 PM EDT): Colonoscopy: 07/29/2018 at [facility] Aortic valve stenosis 07/17/2022 Assessment & Plan (09/12/2024 9:27 AM EST): He is now s/p Aortic valve replacement surgery with bioprosthetic valve. Last seen by Cardiology 05/15/2024 Cardiomyopathy 07/17/2022 Assessment & Plan (09/12/2024 9:18 AM EST): Under the care of Cardiology last seen 05/15/2024 Assessment & Plan (05/23/2024 2:13 PM EDT): Under the care of Cardiology last seen 05/15/2024 Assessment & Plan (04/06/2023 1:20 PM EDT): Under the care of Cardiology last seenin August per his report, will request records Last ECHO show EF 50-55% History of aortic valve replacement 07/17/2022 Assessment & Plan (09/12/2024 9:26 AM EST): Here for a f/u Pt with Hx [...] bioprosthetic valve. Last seen by Cardiology 05/15/2024 Assessment & Plan (05/23/2024 2:14 PM EDT): Here for a f/u Pt with Hx [...] bioprosthetic valve. Last seen by Cardiology 05/15/2024 Assessment & Plan (04/06/2023 1:19 PM EDT): Here for a f/u Pt with Hx [...] with bioprosthetic valve. Last seen by Cardiology 04/08/2021 Mild intermittent asthma 01/27/2018 Assessment & Plan (09/12/2024 9:17 AM EST): Doing well, no recent exacerbation Assessment & Plan (04/06/2023 1:21 PM EDT): Doing well, no recent exacerbation Shoulder pain 01/27/2018 Essential hypertension 02/13/2016 Assessment & Plan (09/12/2024 1:08 PM EST): Patient is here for a f/u BP [...] about weight loss. 4 month follow up Assessment & Plan (05/23/2024 2:00 PM EDT): Patient is here for a f/u BP currently controlled He is on a regimen of: Carvedilol 12.5 mg po BID and Valsartan 80 mg po daily Given adequate blood pressure control will continue with current medical regimen. Most recent electrolytes, Bun and Creatinine done on: 11/29/2023 were within normal limits. Today will order a repeat BMP patient advised to adhere to a low sodium diet, encouraged about medication compliance, counseled about weight loss. 4 month follow up Assessment & Plan (11/09/2023 2:14 PM EDT): Patient is here for a f/u BP currently controlled He is on a regimen of: Carvedilol 12.5 mg po BID and Valsartan 80 mg po daily Given adequate blood pressure control will continue with current medical regimen. Most recent electrolytes, Bun and Creatinine done on: 04/06/2023 were within normal limits. Today will order a repeat BMP patient advised to adhere to a low sodium diet, encouraged about medication compliance, counseled about weight loss. 4 month follow up Assessment & Plan (07/01/2023 12:44 PM EST): Patient is here for a f/u BP currently controlled He is on a regimen of: Carvedilol 12.5 mg po BID and Valsartan 80 mg po daily Given adequate blood pressure control will continue with current medical regimen. Most recent electrolytes, Bun and Creatinine done on: 04/06/2023 were within normal limits. patient advised to adhere to a low sodium diet, encouraged about medication compliance, counseled about weight loss. 4 month follow up Assessment & Plan (04/06/2023 1:29 PM EDT): Here for a f/u BP currently controlled per his report on a regimen of: Carvedilol 12.5 mg po BID and Valsartan 80 mg po daily Given adequate blood pressure control will continue with current medical regimen. Most recent electrolytes, Bun and Creatinine done on: 03/11/2022 were within normal limits. patient advised to adhere to a low sodium diet, encouraged about medication compliance, counseled about weight loss. Bicuspid aortic valve 04/04/2015 Assessment & Plan (09/12/2024 9:26 AM EST): He is now s/p Aortic valve replacement surgery with bioprosthetic valve. Last seen by Cardiology 05/15/2024 Hyperlipidemia 08/01/2012 Assessment & Plan (09/12/2024 9:24 AM EST): Here for a f/u Most recent lipid [...] diet, counseled and educated about diet and exercise, Patient encouraged to come up with a personal goal for weight loss. Assessment & Plan (05/23/2024 2:04 PM EDT): Here for a f/u Most recent lipid profile from: Lab Results Component Value Date TRIG 75 11/29/2023 TRIG 213 (H) 04/06/2023 CHOL 146 11/29/2023 CHOL 158 04/06/2023 LDLCHOLCAL 96 11/29/2023 LDLCHOLCAL 83 04/06/2023 HDL 35 (L) 11/29/2023 HDL 33 (L) 04/06/2023 Currently on a regimen of: Fish Oil 1000 mg po TID . For now will continue with current regimen. advised to try to adhere to a low cholesterol diet, counseled and educated about diet and exercise, Patient encouraged to come up with a personal goal for weight loss. Assessment & Plan (07/01/2023 1:01 PM EST): Here for a f/u Most recent lipid profile from: 04/06/2023 Triglycerides <150 mg/dL 213??High?? 159??High?? 149 145 Comment: Desirable Triglyceride: ? less than 150 mg/dLBorderline High Triglyceride ??150-199 mg/dLHigh Triglyceride: ?200-499 mg/dLVery High Triglyceride: ? greater than or equal to ?5OO mg/dL Cholesterol <200 mg/dL 158 Comment: Desirable Cholesterol: ?less than 200 mg/dLBorderline High Cholesterol: ??200-239 mg/dLHigh Cholesterol: ? greater than 239 mg/dL LDL Cholesterol Calculated <100 mg/dL 83 Comment: Desirable LDL: ? less than 100 mg/dLNear Optimal/Above Optimal LDL: ??110-129 mg/dLBorderline High LDL: ? 130-159 mg/dLHigh LDL: ?160-189 mg/dLVery High LDL: ? greater than or equal to ? 190 mg/dL HDL Cholesterol >40 mg/dL 33??Low?? 38??Low?? R 40 R 38??Low?? R Currently on a regimen of: Fish Oil 1000 mg po TID . For now will continue with current regimen. advised to try to adhere to a low cholesterol diet, counseled and educated about diet and exercise, Patient encouraged to come up with a personal goal for weight loss. Assessment & Plan (04/06/2023 1:18 PM EDT): Here for a f/u Most recent lipid profile from: 03/06/2022 shows a total cholesterol of: 143 triglycerides of: 159 HDL of: 38 and LDL of: 79 Currently on a regimen of: Fish Oil 1000 mg po TID . For now will continue with current regimen. advised to try to adhere to a low cholesterol diet, counseled and educated about diet and exercise, Patient encouraged to come up with a personal goal for weight loss. Kidney stone 08/01/2012 Obstructive sleep apnea syndrome 08/01/2012 Assessment & Plan (05/23/2024 2:12 PM EDT): Here for a f/u Pt has severe TAMARA Used under the care of Dr Paez, he was unable to tolerate the Cpap machine Assessment & Plan (04/06/2023 1:18 PM EDT): Here for a f/u Pt has severe TAMARA Under the care of Dr Paez, he recently decreased the pressure to 6 cm and added Melatonin Opioid dependence 08/01/2012 Type 2 diabetes mellitus with diabetic polyneuro caity 08/01/2012 Assessment & Plan (09/12/2024 1:11 PM EST): Patient is here for a f/u DM [...] exam was last done by Dr. Littlejohn (public relations analyst) No diabetic retinopathy. 07/31/2024 Microalbumin checked on: 11/29/2023 was: 7 Pt is on ARB (lisinopril caused him itchy throat and ? angioedema ? ) . Foot check risk of zero Pt reports compliance with Asa 81 mg po daily Plan: as per Soccer Commentator Pt advised to: adhere to diabetic diet check your blood sugars regularly check your feet on a daily basis f/u 4 months Assessment & Plan (05/23/2024 2:10 PM EDT): Patient is here for a f/u Under the care of Endocrinology ( Dr Fletcher ) He is on a regimen of: Mounjaro increased to 5mg, Jardiance 25 mg po daily, Tresiba 80 units , Humalog 14 before breakfast, 16 units before lunch and 18 units before dinner, Off Metformin ,( Pt stopped due to cramps ). Stopped Trulicity and Ozempic due to GI side effects Hgb A1c 05/23/2024: 8.3 from 8.8 from 9.7 From 10.6 Eye exam was last done by Dr. Littlejohn (public relations analyst) No diabetic retinopathy. Microalbumin checked on: 11/29/2023 was: 7 Pt is no longer on an WALDEMAR inhibitor. (lisinopril caused him itchy throat and ? angioedema ? ) . Foot check risk of zero Pt reports compliance with Asa 81 mg po daily Plan: as per Soccer Commentator Pt advised to: adhere to diabetic diet check your blood sugars regularly check your feet on a daily basis f/u 4 months Assessment & Plan (11/09/2023 2:31 PM EDT): Patient is here for a f/u Under the care of Endocrinology ( Dr Fletcher ) He is on a regimen of: Jardiance 25 mg po daily, Tresiba 80 units , Humalog 14 before breakfast, 16 units before lunch and 18 units before dinner, Off Metformin ,( Pt stopped due to cramps ). Stopped Trulicity and Ozempic due to GI side effects Started recently on Mounjaro 2.5mg Hgb A1c 11/09/2023: 8.8 from 9.7 From 10.6 Eye exam was last done by Dr. Littlejohn (public relations analyst) No diabetic retinopathy. Microalbumin checked on: 01/14/2021 was: 22 Pt is no longer on an WALDEMAR inhibitor. (lisinopril caused him itchy throat and ? angioedema ? ) . Foot check risk of zero Pt reports compliance with Asa 81 mg po daily Plan: as per Soccer Commentator Pt advised to: adhere to diabetic diet check your blood sugars regularly check your feet on a daily basis f/u 4 months Assessment & Plan (07/01/2023 1:20 PM EST): Patient is here for a f/u Under the care of Endocrinology ( Dr Fletcher ) He is on a regimen of: Jardiance 25 mg po daily, Tresiba 80 units and Humalog 14 before breakfast, 16 units before lunch and 18 units before dinner, pt started again Metformin XR 500 mg 2 tabs po BID, ( Pt stopped due to cramps ). Stopped Trulicity and Ozempic due to GI side effects Hgb A1c 07/01/2023: 9.7 From 10.6 Eye exam was last done by Dr. Littlejohn (public relations analyst) No diabetic retinopathy. Microalbumin checked on: 01/14/2021 was: 22 Pt is no longer on an WALDEMAR inhibitor. (lisinopril caused him itchy throat and ? angioedema ? ) . Will repeat Foot check risk of zero Pt reports compliance with Asa 81 mg po daily Plan: as per Soccer Commentator Pt advised to: adhere to diabetic diet check your blood sugars regularly check your feet on a daily basis f/u 4 months Assessment & Plan (04/06/2023 1:58 PM EDT): Patient is here for a f/u Under the care of endocrinology ( Dr Fletcher ) He is on a regimen of: Jardiance 25 mg po daily, Tresiba 80 units and Humalog 14 before breakfast, 16 units before lunch and 18 units before dinner Pt no longer taking Metformin XR 500 mg 2 tabs po BID, ( Pt stopped due to cramps ). Stopped Trulicity due to GI side effects Hgb A1c 04/06/2023: 10.6 Eye exam was last done by Dr. Littlejohn (public relations analyst) No diabetic retinopathy. Microalbumin checked on: 01/14/2021 was: 22 Pt is no longer on an WALDEMAR inhibitor. (lisinopril caused him itchy throat and ? angioedema ? ) Foot check risk of zero Pt reports compliance with Asa 81 mg po daily Plan: as per Soccer Commentator Pt advised to: adhere to diabetic diet check your blood sugars regularly check your feet on a daily basis f/u 3 months Depressive disorder 08/16/1959 Assessment & Plan (09/12/2024 1:10 PM EST): Pt with Hx of Depression In the past used to follow with Dr Bar, Pt has a client experience specialist pet who he attributes the fact that he now feels better. He clearly benefits from having one. Patient denies any suicidal thoughts or ideations. Has crisis numbers and knows to use them if needed. Assessment & Plan (04/06/2023 1:22 PM EDT): Pt with Hx of Depression In the past used to follow with Dr Bar, currently denies feeling depressed Patient denies any suicidal thoughts or ideations. Has crisis numbers and knows to use them if needed. Erectile dysfunction 08/16/1959 Gastroesophageal reflux disease 08/16/1959 Morbid obesity 08/16/1959 Assessment & Plan (09/12/2024 12:49 PM EST): Patient has been counseled and educated about diet and exercise. Personal goal of weight loss discussedPatient has comorbidity of: DM Dietary Recommendations: Fruits, vegetables, whole grains, protein foods, and fat-free or low-fat dairy products are healthy choices. Eat different types of protein foods in your diet. This can include seafood, lean meats, poultry, beans, peas, lentils, nuts, seeds, soy products, and eggs. Limit foods and beverages higher in added sugars, saturated fat, and sodium. Exercise Recommendations: At least 150 minutes of moderate-intensity physical activity per week, or an equivalent combination of moderate- and vigorous-intensity activity Assessment & Plan (07/01/2023 1:02 PM EST): Patient has been counseled and educated about diet and exercise. Personal goal of weight loss discussedPatient has comorbidity of: DM Polyarthropathy 08/16/1959 Resolved Problems Problem Noted Date Diagnosed Date Resolved Date Foreign body sensation, right eye 03/02/2024 09/12/2024 Assessment & Plan (03/02/2024 3:16 PM EDT): I let him know no foreign object was found on physical exam, likely it was flush out but he still has the sensation I will prescribe antibiotic ointment if persist or worse call us back Encounters Date Type Department Care Team Description 09/15/2024 Refill [facility] [address] [place] [phone] Deidre Anton RN Uncomplicated opioid dependence ([facility]/HCC) 09/13/2024 Refill [facility] [place] [address] Galo Fang MD 09/12/2024 1:00 PM EST Office Visit [facility] [place] [address] Galo Fang MD Type 2 diabetes mellitus with diabetic polyneuropathy, with long-term current use of insulin (CMS/[facility]) (Primary Dx); Essential hypertension; Chronic midline low back pain without sciatica; Other osteoporosis without current pathological fracture; Mild intermittent asthma without complication; Cardiomyopathy, unspecified type ([facility]); MILTON positive; Mixed hyperlipidemia; Bicuspid aortic valve; History of aortic valve replacement; Aortic valve stenosis, etiology of cardiac valve disease unspecified; Morbid obesity ([facility]); Preventative health care; Depressive disorder 09/12/2024 Travel 09/08/2024 Refill [facility] [address] [place], [place] [address] [address] Carroll Roberts MD Uncomplicated opioid dependence (CMS/HCC) 09/01/2024 Telephone [facility] [address] [place] [id number] Galo Fang MD Chart Prep 08/31/2024 Patient Outreach [address] [address] Galo Fang MD Pre-visit Planning (SDOH Screening negative and Tobacco screening negative) 08/21/2024 Patient Outreach [address] [address] Queta Mohan RC Outreach/No Answer 08/18/2024 9:30 AM EST Office Visit [facility] [address] [place] [id number] Carroll Roberts MD Opioid use disorder in remission (Primary Dx); Opioid type dependence, continuous (CMS/HCC) 08/18/2024 Travel 08/17/2024 Refill [facility] [address] [place], [place] [address] [address] Galo Fang MD 08/12/2024 Refill [facility] [address] [place] [address] Galo Fang MD Gastroesophageal reflux disease without esophagitis 07/31/2024 10:00 AM EST Office Visit [facility] [address] [place] [address] Paulo, Pat, OD Diabetes type 2, no ocular involvement ([facility]) (Primary Dx); 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; Meibomian gland disease, unspecified laterality; Combined forms of age-related cataract of both eyes; Presbyopia 07/31/2024 Travel 07/24/2024 Patient Outreach [facility] [address] [place] [address] Queta Mohan Recovery Supports 07/21/2024 9:15 AM EST Office Visit [facility] [address] [place] [address] Carroll Roberts MD Opioid use disorder in remission (Primary Dx) 07/17/2024 Telephone [facility] [address] [place] [address] Angie España MA Result fax to endo 07/07/2024 Refill [facility] [address] [place] [address] Deidre Anton RN Uncomplicated opioid dependence ([facility]) 06/29/2024 Orders Only GENERIC EXTERNAL DATA DEPARTMENT Provider, Generic External Data 06/20/2024 Refill [facility] [address] [place] [address] Jocelyn Cruz FNP from Last 3 Months Immunizations Name Administration Dates Next Due Hep A, Adult 12/16/2010,07/23/2009 Hep B, adult 12/16/2010,08/20/2009,07/23/2009 Influenza injectable quadriv alent IIV4 with preservative 06/29/2017,05/28/2016 Influenza, IIV3, injectable 2014 Influenza, Split (incl. donato fied surface antigen) 05/24/2013,05/02/2012 Influenza, seasonal, injecta ble, preservative free 05/23/2024 Moderna Covid-19 Vaccine 12+ 08/14/2021,11/26/19 21,10/28/2020 Pneumococcal Conjugate PCV 20 05/23/2024 Pneumococcal Polysaccharide PPSV23 01/23/2009 TD (adult), 2 Lf tetanus tox oid, preservative free, adsorbed 02/06/2003 Tdap 04/04/2015 Social History Tobacco Use Types Packs/Day Years Used Date Smoking Tobacco: Former Cigarettes Passive Smoke Exposure: Past Smokeless Tobacco: Never Tobacco Cessation:Counseling Given: Not Answered Depression Answer Date Recorded Patient Health Questionnaire-9 [...] Orientation Straight 06/15/2022 10 :16 AM EDT Last Filed Vital Signs Vital Sign Reading [...] Mass Index 32.8 09/12/2024 12:48 PM EST Plan of Treatment Upcoming Encounters Date Type Department Care Team (Late st Contact Info) Description 10/13/2024 9:30 AM EST Office Visit [facility] [address] [place], [place] [phone] Carroll Roberts MD [address] [place], [place] [phone] Health Maintenance Due Date Last Done Comments CT Colonography 1960 FIT DNA/Cologuard 1960 FIT 1960 FOBT 1960 Sigmoidoscopy 1960 Diabetes: Foot Exam 1970 Zoster Vaccines (1 of 2) 2010 RSV Patients and Patients Aged 60 years or older (1 - Risk 60-74 years 1-dose series) 2020 COVID-19 Vaccine ( season) 2024 08/14/2021, 11/25/2020, 10/28/2020 Lipid Panel 11/28/2024 11/29/2023, 03/17, 03/11/2022, Additional history exists Diabetes: Hemoglobin A1C 03/12/2025 025, 05/23/2024, 11/09/2023, Additional history exists DTaP/Tdap/Td Vaccines (2 - Td or Tdap) 04/04/2025 04/04/2015, 02/06/2003 Depression Screening 05/26/2025 05/26/2024, 05/26/20 Diabetes: Urine Protein Screening 06/07/2025 06/07/2024, 11/29/2023, 03/11/2022, Additional history exists Tobacco Screening 08/01/2025 08/01/2024 SDOH Screening 08/31/2025 08/31/2024 Alcohol/Substance Use Screening 09/12/2025 09/12/2024 Eye Exam 07/31/2026 07/31/2024, 07/16, 07/31/2024, Additional history exists Colonoscopy 07/29/2028 07/29/2018, 07/16, 03/16/2013 Colorectal Cancer Screening 07/29/2028 Hepatitis A Vaccines Completed 12/16/2010, 07/23/20 09 Hepatitis B Vaccines Completed 12/16/2010, 08/20/2009, 07/23/2009 Influenza Vaccine Completed 05/23/2024, , 05/28/2016, Additional history exists Pneumococcal Vaccine: 50+ Years Completed 05/23/2024, 01/23/2009 HIV Screening Completed 06/07/2024, 02/14, 07/01/2021 Hepatitis C Screening Completed 06/07/2024 , 06/07/2024, 03/09/2023, Additional history exists HIB Vaccines Aged Out No longer eligi ble based on patient's age to complete this topic HPV Vaccines Aged Out No longer eligi ble based on patient's age to complete this topic IPV Vaccines Aged Out No longer eligi ble based on patient's age to complete this topic Meningococcal Vaccine Aged Out No kirill kym eligible based on patient's age to complete this topic RSV under 20 months Aged Out No longe r eligible based on patient's age to complete this topic Rotavirus Vaccines Aged Out No longer eligible based on patient's age to complete this topic Procedures Procedure Name Priority Date/Time Associated Diagnosis Comments POCT GLYCATED HEMOGLOBIN, TOTAL Routine 09/12/2024 1:00 PM EST Type 2 diabetes mellitus with diabetic polyneuropathy, with long-term current use of insulin ([facility]) POCT GLUCOSE Routine 09/12/2024 12:55 PM EST Type 2 diabetes mellitus with diabetic polyneuropathy, with long-term current use of insulin ([facility]) POCT FRANCESCA-14 URINE DRUG SCREEN Routine 08/18/2024 9:05 AM EST Opioid type dependence, continuous (CMS/HCC) OCT, OPTIC NERVE - OU - BOTH EYES Routine 07/31/2024 10:00 AM EST 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 POCT FRANCESCA-14 URINE DRUG SCREEN Routine 07/21/2024 9:04 AM EST Opioid use disorder in remission GLUCOSE, WHOLE BLOOD Routine 06/29/2024 12:14 PM EST HEPATITIS PANEL, GENERAL Routine 06/07/2024 10:41 AM EDT HIV 1/2 ANTIGEN/ANTIBODY, FOURTH GENERATION W/RFL Routine 06/07/2024 10:41 AM EDT Opioid use disorder in remission PROTEIN CREATININE RATIO, URINE Routine 06/07/2024 10:41 AM EDT LIPID PANEL, STANDARD Routine 11/29/2023 8:05 AM EDT HM COLONOSCOPY Routine 07/29/2018 from Last 3 Months or Most Recently Relevant to Health Maintenance Results * (ABNORMAL) POCT HGB A1C (09/12/2024 1:00 PM EST) Hemoglobin A1C 6.8(A) 4.0 - 6.0 % QC Media Lot # [id number] Lot# Expiration Date Blood 09/12/2024 1:00 PM EST Galo Ramey MD POINT OF CARE TEST EN TER/EDIT ORDERABLES Final Result * POCT Glucose (09/12/2024 12:55 PM EST) Glucose Blood, POC 128 60 - 200 mg/dL QC Media Lot # [id number] Lot# Expiration Date ,025 Blood Capillary blood specimen / Unknown 09/12/2024 12:55 PM EST us Galo Ramey MD POINT OF CARE TEST EN TER/EDIT ORDERABLES Final Result * POCT FRANCESCA-14 Urine Drug Screen (08/18/2024 9:05 AM EST) Only the most recent of2 resultswithin the time period is included. THC Negative Cocaine Screen, Urine Negative Opiate [...] OF CARE TEST ENTER/EDIT ORDERABLES Final Result * (ABNORMAL) Glucose, Whole Blood (06/29/2024 12:14 PM EST) Glucose, Whole Blood 170(H) 60 - 115 mg/dL [facility] Comment:METER #: [id number] 5Testing performed in the Endocrinology Department [address] , [address], [facility]. 06/29/2024 12:1 4 PM EST 06/29/2024 12:18 PM EST Generic External Data Provider LAB BLOOD ORDERAB LES Final Result [facility] [address] [place] [address] [phone] * (ABNORMAL) Protein Creatinine Ratio, Urine (06/07/2024 10:41 AM EDT) Creatinine, Urine 204.22 mg/dL [facility] Protein, Total, Random Urine 14(H) <12 mg/dL [facility] Protein/Creati nine Ratio, Ur 0.07 <0.2 [facility] Comment:The spot urine prote in:creatinine ratio may increase to 0.3during normal . 06/07/2024 10:4 1 AM EDT 06/07/2024 10:56 AM EDT Generic External Data Provider LAB URINE ORDERAB LES Final Result Performing Organization Address [facility] Co de Phone Number [facility] [address] [place] [phone] * Hepatitis Panel, General (06/07/2024 10:41 AM EDT) Hepatitis A IgM Nonreactive Nonreactive [facility] Comment:IgM antibodies to ALBERCHT V not detected; does not exclude earlyacute or recovered HAV infection. ~Hepatitis B Surface Antibody NONREACTIVE Nonreactive [facility] Comment:Nonreactive: < 8.00 mIU/mL Hepatitis B Core Antibody Nonreactive Nonreactive [facility] Hepatitis C Antibody Nonreactive Nonreactive [facility] Comment:Antibodies to HCV no t detected; does not exclude early acuteHCV infection. Hepatitis B Surface Ag Negative Negative [facility] 06/07/2024 10:4 1 AM EDT 06/07/2024 10:41 AM EDT Generic External Data Provider LAB BLOOD ORDERAB LES Final Result Performing Organization Address [facility] Co de Phone Number [facility] [address] [place] [phone] * HIV-1/2 Antigen and Antibodies, Fourth Generation, with Reflexes (06/07/2024 10:41 AM EDT) HIV AB/AG Nonreactive Nonreactive [facility] Comment:HIV-1 p24 Ag and/or HIV-1/HIV-2 Ab not detected.A test result that is nonreactive does not exclude thepossibility of exposure to or infection with HIV-1 and/orHIV-2. Nonreactive results in this assay for individualswith prior exposure to HIV-1 and/or HIV-2 may be due toantigen and antibody levels that are below the limit ofdetection of this assay.The [employer] HIV Ag/Ab Combo assay result andsupplemental assay results should be interpreted inconjunction with the patient's clinical presentation,history and other laboratory results. If the results areinconsistent with clinical evidence, additional testing issuggested to confirm the result. Blood Venous blood specimen / Unknown 06/07/2024 10:41 AM EDT 06/07/2024 10:41 AM EDT us Carroll Roberts MD LAB BLOOD ORDERABLES Final Res ult [facility] [address] [place] [address] [phone] * (ABNORMAL) Lipid Panel, Standard (11/29/2023 8:05 AM EDT) Triglycerides 75 <150 mg/dL [facility] Comment:Desirable Triglyceri de: less than 150 mg/dLBorderline High Triglyceride 150-199 mg/dLHigh Triglyceride: 200-499 mg/dLVery High Triglyceride: greater than or equal to 5OO mg/dL Cholesterol 146 <200 mg/dL [facility] Comment:Desirable Cholestero l: less than 200 mg/dLBorderline High Cholesterol: 200-239 mg/dLHigh Cholesterol: greater than 239 mg/dL LDL Cholesterol Calculated 96 <100 mg/dL [facility] Comment:Desirable LDL: less than 100 mg/dLNear Optimal/Above Optimal LDL: 110- 129 mg/dLBorderline High LDL: 130-159 mg/dLHigh LDL: 160-189 mg/dLVery High LDL: greater than or equal to 190 mg/dL HDL Cholesterol 35(L) >40 mg/dL [facility] Comment:Desirable HDL: great er than 40 mg/dL Note: This HDL assay may give artificially low results in patients with liver disease. 11/29/2023 8:05 AM EDT 11/29/2023 8:05 AM EDT us Generic External Data Provider LAB BLOOD ORDERAB LES Final Result [facility] [address] [place] [phone] * Colonoscopy (07/29/2018) Colonoscopy Normal Normal 07/29/2018 Narrative Georgia Rubio - 07/29/2018 1:52 PM EST Recommended 10 year follow up us Historical Provider HEALTH MAINTENANCE Final Result from Last 3 Months or Most Recently Relevant to Health Maintenance Insurance [employer] Care Teams Real Time Operator Relationship Specialty Start Date End Date Galo Fang MD [address] [place] [address] [phone] PCP - General Internal Medicine 04/04/14
--- OUTSIDE RECORDS SUMMARY | 2024-09-15 10:50 | XMS_ITS | Encounter Summary ---
Author Organization [employer] Address [address] [facility] 7t [place] [address] Care Team Providers Care General Production Manager Name Role Phone Galo Fang MD Primary Care Provide r Reason for Visit * Reason Comments Med Refill Encounter Details Date Type Department Care Team ([facility] st Contact Info) Description 01/28/2024 Refill [facility] [address] [place], [place] [phone] Carroll Roberts MD [address] [place], [place] [phone] Uncomplicated opioid dependence (CMS/HCC) Social History Tobacco [...] Description 10/13/2024 9:30 AM EST Office Visit [facility] [address] [place], [place] [phone] Carroll Roberts MD [address] [place] [address] documented as of this encounter Visit Diagnoses Diagnosis Uncomplicated opioid dependence (CMS/HCC) documented in this encounter Additional Health Concerns Assessment Noted Time PHQ-9 Depression Total Score: 0 07/01/20 23 1:10 PM EST documented as of this encounter Care Teams General Production Manager Relationship Specialty Start Date End Date Galo Fang MD [address] [place] [phone] PCP - General Internal Medicine 04/04/14 documented as of this encounter
--- OUTSIDE RECORDS SUMMARY | 2024-09-15 10:50 | XMS_ITS | Encounter Summary ---
Author Organization [employer] [facility] Address [address] [place] [address] 7t [place] [address] Care Team Providers Care Pack Press Operator Name Role Phone Galo Fang MD Primary Care Provide r Reason for Visit * Reason Comments Med Refill Encounter Details Date Type Department Care Team (Late st Contact Info) Description 11/03/2022 Refill [facility] [address] [place] [address] [phone] Jess Barriga MD [address] [place] [phone] Mild intermittent asthma without complication Social History Tobacco Use Types Packs/Day Years [...] Description 10/13/2024 9:30 AM EST Office Visit [facility] [address] [place] [phone] Carroll Roberts MD [address] [place] [address] [phone] documented as of this encounter Visit Diagnoses Diagnosis Mild intermittent asthma without complication documented in this encounter Care Teams Pack Press Operator Relationship Specialty Start Date End Date Galo Fang MD [address] [place] [phone] PCP - General Internal Medicine 04/04/14 documented as of this encounter
--- OUTSIDE RECORDS SUMMARY | 2024-09-15 10:50 | XMS_ITS | Encounter Summary ---
Author Organization [employer] [facility] Address [address] [facility] 7t [place] [address] Care Team Providers Care Healthcare Administration Intern Name Role Phone Galo Fang MD Primary Care Provide r Encounter Details Date Type Department Care Team (Late st Contact Info) Description 06/14/2023 Abstract [facility] [address] [place] [address] [phone] Galo Fang MD [address] [place] [address] [phone] Social History Tobacco Use Types Packs/Day Years Used Date Smoking Tobacco: Former Cigarettes Passive Smoke Exposure: Never Smokeless Tobacco: Never Sex and Gender Information Value Date Recorded Sex Assigned at Male 06/15/2022 10:16 AM EDT Legal Sex Male 10:16 AM EDT Gender Identity Male 06/15/2022 10:16 AM EDT Sexual Orientation Straight 06/15/2022 10 :16 AM EDT documented as of this encounter Plan of Treatment Upcoming Encounters Date Type Department Care Team (Late st Contact Info) Description 10/13/2024 9:30 AM EST Office Visit [facility] [address] [place] [address] [phone] Carroll Roberts MD [address] [place] [address] [phone] documented as of this encounter Procedures Procedure Name Priority Date/Time Associated Diagnosis Comments COLONOSCOPY Routine 07/29/2018 COLONOSCOPY Routine 03/16/2013 documented in this encounter Results * Hm Colonoscopy (07/29/2018) Colonoscopy Normal Normal us Historical Provider HEALTH MAINTENANCE Edited Result - Final * Colonoscopy (03/16/2013) Colonoscopy Normal Normal Narrative Georgia Rubio - 03/16/2013 Recommended 10 year follow up us Historical Provider HEALTH MAINTENANCE Final Result documented in this encounter Visit Diagnoses Not on filedocumented in this encounter Care Teams Healthcare Administration Intern Relationship Specialty Start Date End Date Galo Fang MD [address] [place] [phone] PCP - General Internal Medicine 04/04/14 documented as of this encounter
--- OUTSIDE RECORDS SUMMARY | 2024-09-15 10:50 | XMS_ITS | Encounter Summary ---
Author Organization [employer] [facility] Address [address] [place] [address] 7 [place] [address] Care Team Providers Care Drama Teacher Name Role Phone Galo Fang MD Primary Care Provide r Reason for Visit * Reason Comments Med Refill Encounter Details Date Type Department Care Team ([facility] Contact Info) Description 06/22/2023 Refill [facility] [address] [place] [phone] Carroll Roberts MD [address] [place] [phone] Uncomplicated opioid dependence (CMS/HCC) Social History Tobacco [...] Upcoming Encounters Date Type Department Care Team ([facility] Contact Info) Description 10/13/2024 9:30 AM EST Office Visit [facility] [address] [place] [phone] Carroll Roberts MD [address] [place] [phone] documented as of this encounter Visit Diagnoses Diagnosis Uncomplicated opioid dependence (CMS/HCC) documented in this encounter Care Teams Drama Teacher Relationship Specialty Start Date End Date Galo Fang MD [address] [place] [phone] PCP - General Internal Medicine 04/04/14 documented as of this encounter
--- OUTSIDE RECORDS SUMMARY | 2024-09-15 10:50 | XMS_ITS | Encounter Summary ---
Author Organization [employer] [facility] Address [address] [place] [address] 7 [place] [address] Care Team Providers Care Production Quality Manager Name Role Phone Galo Fang MD Primary Care Provide r Reason for Visit * Reason Comments Med Refill Encounter Details Date Type Department Care Team ([facility] Contact Info) Description 04/27/2023 Refill [facility] [address] [place] [phone] Carroll Roberts MD [address] [place] [phone] Uncomplicated opioid dependence (CMS/HCC) Social History Tobacco [...] Upcoming Encounters Date Type Department Care Team ([facility] Contact Info) Description 10/13/2024 9:30 AM EST Office Visit [facility] [address] [place] [phone] Carroll Roberts MD [address] [place] [phone] documented as of this encounter Visit Diagnoses Diagnosis Uncomplicated opioid dependence (CMS/HCC) documented in this encounter Care Teams Production Quality Manager Relationship Specialty Start Date End Date Galo Fang MD [address] [place] [phone] PCP - General Internal Medicine 04/04/14 documented as of this encounter
--- OUTSIDE RECORDS SUMMARY | 2024-09-15 10:50 | XMS_ITS | Encounter Summary ---
Author Organization [employer] Address [address] [facility] 7t [place] [address] Care Team Providers Care Ramp Lead Name Role Phone Galo Fang MD Primary Care Provide r Reason for Visit * Reason Comments Med Refill Encounter Details Date Type Department Care Team ([facility] st Contact Info) Description 12/03/2023 Refill [facility] [address] [place], [place] [phone] Carroll Roberts MD [address] [place], [place] [phone] Uncomplicated opioid dependence (CMS/HCC) Social History Tobacco [...] Description 10/13/2024 9:30 AM EST Office Visit [facility] [address] [place], [place] [phone] Carroll Roberts MD [address] [place] [address] documented as of this encounter Visit Diagnoses Diagnosis Uncomplicated opioid dependence (CMS/HCC) documented in this encounter Additional Health Concerns Assessment Noted Time PHQ-9 Depression Total Score: 0 07/01/20 23 1:10 PM EST documented as of this encounter Care Teams Ramp Lead Relationship Specialty Start Date End Date Galo Fang MD [address] [place] [phone] PCP - General Internal Medicine 04/04/14 documented as of this encounter
--- OUTSIDE RECORDS SUMMARY | 2024-09-15 10:50 | XMS_ITS | Encounter Summary ---
Author Organization [employer] Address [address] [facility] [address] 7t [place] [address] Care Team Providers Care Due Diligence Coordinator Name Role Phone Galo Fang MD Primary Care Provide r Reason for Visit * Reason Comments Med Refill Encounter Details Date Type Department Care Team ([facility] st Contact Info) Description 04/20/2024 Refill [facility] [address] [place] [address] [phone] Karuna Covington MD [address] [place], [place] [phone] Foreign body sensation, right eye Social History Tobacco Use Types Packs/Day Years [...] Description 10/13/2024 9:30 AM EST Office Visit [facility] [address] [place] [phone] Carroll Roberts MD [address] [place] [phone] documented as of this encounter Visit Diagnoses Diagnosis Foreign body sensation, right eye documented in this encounter Additional Health Concerns Assessment Noted Time PHQ-9 Depression Total Score: 0 07/01/20 23 1:10 PM EST documented as of this encounter Care Teams Due Diligence Coordinator Relationship Specialty Start Date End Date Galo Fang MD [address] [place] [phone] PCP - General Internal Medicine 04/04/14 documented as of this encounter
--- OUTSIDE RECORDS SUMMARY | 2024-09-15 10:50 | XMS_ITS | Encounter Summary ---
Author Organization [employer] Address [address] [facility] 7t [place] [address] Care Team Providers Care Dentofacial Orthopedics Dentist Name Role Phone Galo Fang MD Primary Care Provide r Reason for Visit * Reason Comments Med Refill Encounter Details Date Type Department Care Team ([facility] st Contact Info) Description 09/13/2024 Refill [facility] [address] [place] [address] [phone] Galo Fang MD [address] [place], [place] [phone] Social History Tobacco Use Types Packs/Day Years [...] Description 10/13/2024 9:30 AM EST Office Visit [facility] [address] [place] [address] Carroll Roberts MD [address] [place] [address] documented as of this encounter Visit Diagnoses Not on filedocumented in this encounter Additional Health Concerns Assessment Noted Time PHQ-9 Depression Total Score: 0 05/26/20 24 9:56 AM EDT documented as of this encounter Care Teams Dentofacial Orthopedics Dentist Relationship Specialty Start Date End Date Galo Fang MD [address] [place] [phone] PCP - General Internal Medicine 04/04/14 documented as of this encounter
--- OUTSIDE RECORDS SUMMARY | 2024-09-15 10:50 | XMS_ITS | Encounter Summary ---
Author Organization [employer] Address [address] [facility] 7t [place] [address] Care Team Providers Care Assignment Editor Name Role Phone Galo Fang MD Primary Care Provide r Reason for Visit * Reason Comments Med Refill Encounter Details Date Type Department Care Team ([facility] st Contact Info) Description 04/20/2024 Refill [facility] [address] [place], [place] [phone] Jocelyn Cruz FNP [address] [place] [phone] Social History Tobacco Use Types Packs/Day Years [...] AM EST Office Visit [facility] [address] [place] [phone] Carroll Roberts MD [address] [place] [phone] documented as of this encounter Visit Diagnoses Not on filedocumented in this encounter Additional Health Concerns Assessment Noted Time PHQ-9 Depression Total Score: 0 07/01/20 23 1:10 PM EST documented as of this encounter Care Teams Assignment Editor Relationship Specialty Start Date End Date Galo Fang MD [address] [place] [phone] PCP - General Internal Medicine 04/04/14 documented as of this encounter
--- OUTSIDE RECORDS SUMMARY | 2024-09-15 10:50 | XMS_ITS | Encounter Summary ---
Author Organization [employer] Address [address] [facility] 7t [place] [address] Care Team Providers Care Helminthology Teacher Name Role Phone Galo Fang MD Primary Care Provide r Reason for Visit * Reason Comments Med Refill Encounter Details Date Type Department Care Team ([facility] st Contact Info) Description 12/23/2023 Refill [facility] [address], [place] [phone] Carroll Roberts MD [address] [place], [place] [phone] Constipation, unspecified constipation type Social History Tobacco Use Types Packs/Day Years [...] 9:30 AM EST Office Visit [facility] [address] [place] [address] [phone] Carroll Roberts MD [address] [place] [phone] documented as of this encounter Visit Diagnoses Diagnosis Constipation, unspecified constipation type documented in this encounter Additional Health Concerns Assessment Noted Time PHQ-9 Depression Total Score: 0 07/01/20 23 1:10 PM EST documented as of this encounter Care Teams Helminthology Teacher Relationship Specialty Start Date End Date Galo Fang MD [address] [place] [address] [phone] PCP - General Internal Medicine 04/04/14 documented as of this encounter
--- OUTSIDE RECORDS SUMMARY | 2024-09-15 10:50 | XMS_ITS | Encounter Summary ---
Author Organization [employer] Address 75 [facility] 7t [place] [address] Care Team Providers Care Projection Technician Name Role Phone Galo Fang MD Primary Care Provide r Reason for Visit * Reason Onset Date Comments Med Refill 09/15/2024 Encounter Details Date Type Department Care Team ([facility] st Contact Info) Description 09/15/2024 Refill [facility] [address] [place] [address] Deidre Anton RN Uncomplicated opioid dependence (CMS/HCC) Social History Tobacco [...] t he electric, gas, oil or water [employer] threatened to shut off services in your [...] EST Office Visit [facility] [address] [place] [address] Carroll Roberts MD 230 [place] [address] documented as of this encounter Visit Diagnoses Diagnosis Uncomplicated opioid dependence (CMS/HCC) documented in this encounter Additional Health Concerns Assessment Noted Time PHQ-9 Depression Total Score: 0 05/26/20 24 9:56 AM EDT documented as of this encounter Care Teams Projection Technician Relationship Specialty Start Date End Date Galo Fang MD [address] [place] [phone] PCP - General Internal Medicine 04/04/14 documented as of this encounter
--- OUTSIDE RECORDS SUMMARY | 2024-09-15 10:50 | XMS_ITS | Encounter Summary ---
Author Organization [employer] [facility] Address [address] [place] [address] 7t [place] [address] Care Team Providers Care City Planner Name Role Phone Galo Fang MD Primary Care Provide r Reason for Visit * Reason Comments Med Refill Encounter Details Date Type Department Care Team ([facility] Contact Info) Description 11/12/2022 Refill [facility] [address] [place] [address] [phone] Galo Fang MD [address] [place] [phone] Gastroesophageal reflux disease, unspecified whether esophagitis present Social History Tobacco Use Types Packs/Day Years [...] AM EST Office Visit [facility] [address] [place] [phone] Carroll Roberts MD [address] [place] [address] [phone] documented as of this encounter Visit Diagnoses Diagnosis Gastroesophageal reflux disease, unspecified whether esophagitis present documented in this encounter Care Teams City Planner Relationship Specialty Start Date End Date Galo Fang MD [address] [place] [phone] PCP - General Internal Medicine 04/04/14 documented as of this encounter
[2024-09-15 12:41] LABS: Rheumatoid Factor < 13.0 IU/mL (<15.0)
[2024-09-15 12:43] LABS: Cholesterol 173 mg/dL (<200); HDL Cholesterol 41 mg/dL (>40); LDL Cholesterol Calculated 106 mg/dL (<100); Triglycerides 132 mg/dL (<150)
[2024-09-15 13:12] LABS: Prostate Specific Antigen Scr 0.51 ng/mL (<0.05-4.0)
[2024-09-20 21:42] LABS: Testosterone, Free 54.6 pg/mL (35.0-155.0); Testosterone, Total 382 ng/dL (250-1100)
== END 2024-09-15 10:11 | disposition home or self-care (01) ==
LOC: HO.HHCL 10:10
PROVIDERS: Nurse Practitioner Adult Health; Student in an Organized Health Care Education/Training Program; Visit Provider Internal Medicine
DX: Z00.00 Encounter for general adult medical examination without abnormal findings (principal); Z12.5 Encounter for screening for malignant neoplasm of prostate; E78.2 Mixed hyperlipidemia; M25.50 Pain in unspecified joint; M81.0 Age-related osteoporosis without current pathological fracture
CPT/HCPCS: 36415; 80061; 84153; 84402; 84403; 86431

== ENCOUNTER 2024-10-27 12:44 | Outpatient (AMB) | payer MEDICAID, SELFPAY ==
--- NOTE | 2024-10-27 12:52 | MHC.OFFVIS ---
Vital Signs 10/27/24 12:55 Height 5 ft 8 in Weight 212 lb 8.41 oz BMI 32.3 BP 100/64 Blood Pressure Location Lt brachial Position Sitting Pulse 93 Pulse Source Pulse Oximeter Pulse Oximetry (%) 97 Oxygen Delivery Method Room Air Intake Visit Reasons: T2DM Intake Note: Patient present today to follow up on Type 2 Diabetes Mellitus. Last Diabetic Eye exam: August 2024 Last Podiatry Visit: Does not see a [place] [employer] Random Glucose: 153 mg/dl HgA1C: 6.6% 10/27/2024 Dry Paste Supervisor Required: Yes Dry Paste Supervisor Language: Teacher Emotionally Impaired Services: Dry Paste Supervisor Present Dry Paste Supervisor Name: Rylie [phone] Information Interpreted: non-clinical & clinical Accompanied by: Self / Same As Patient Allergies insulin glargine [From [employer] U-300 SoloStar] Allergy (Intermediate, Verified 10/27/24 13:00) itching HPI Comments Details: This is a 64-year-old male with type 2 diabetes diagnosed approximately 10 years ago who presents for management of type 2 diabetes. This is my 1st visit with him. He last saw my colleague in June of 2024. He has a past medical history of asthma, coronary artery disease, hyperlipidemia and sleep apnea. Complications: Neuropathy and coronary artery disease. Past medications: Metformin-GI cramping Hemoglobin a1c is 6.6%. He forgot his meter today. Current medications: Tresiba 76 units daily Lispro 12 before breakfast, 14 before lunch and dinner Mounjaro 7.5 mg weekly Jardiance 25 mg daily Denies hypoglycemia. Denies hyperglycemia. Not on a stain for unknown reasons. LDL 106 with goal <70. Patient says he has been getting some cramping in his hands and feet for the past couple of weeks. No numbness or tingling. ROS: Constitutional: No unexplained weight loss, fever, chills, fatigue or night sweats. Eyes: No vision changes Respiratory: No shortness of breath Cardiovascular: No chest pain Gastrointestinal: No anorexia, nausea, vomiting or diarrhea. No abdominal pain Neurologic: No headache, dizziness, syncope, unilateral weakness, ataxia, numbness or tingling in the extremities. Skin: No rash or itching. Endocrine: No cold or heat intolerance. No polyuria or polydipsia. Physical exam: Constitutional: Alert, in no distress. Neck: Supple, Full range of motion. No lymphadenopathy. No palpable masses. Respiratory: Clear to auscultation. Cardiovascular: S1 S2 regular. Murmur present. Feet: Warm and well perfused. No clubbing, cyanosis or edema. Palpable DP pulses. Decreased vibratory sensation. Intact sensation to monofilament. No open wounds. [facility] Medical History (Updated 06/29/24 @ 13:46 by Norah Lundy NP) Osteoporosis History of cardiomyopathy Prosthetic valve dysfunction BMI 39.0-39.9,adult Cardiomyopathy TAMARA (obstructive sleep apnea) Opioid dependence Hypogonadism Polyarthropathy Erectile dysfunction Nephrolithiasis Depression Esophageal reflux Arthritis Asthma Hyperlipidemia LDL goal <70 Obesity due to excess calories Essential hypertension Type 2 diabetes mellitus with diabetic neuropathy, unspecified Surgical History History of heart valve replacement Hx of umbilical hernia repair Family History Father Heart disease CVD (cardiovascular disease) Mother DM2 (diabetes mellitus, type 2) Social History Household Members: None Alcohol intake: current Alcohol intake frequency: does not drink Patient Tobacco Use Status: Former Tobacco user Current occupational status: disabled Physical Exam Vital Signs: Last Vital Signs Pulse 93 10/27/24 12:55 BP 100/64 10/27/24 12:55 Pulse Ox 97 10/27/24 12:55 Oxygen Delivery Method Room Air 10/27/24 12:55 BMI result Body Mass Index 32.3 Results AMB Hemoglobin A1c AMB Hemoglobin A1c 6.6 % Last Edit by VIVIANE Mendoza on 10/27/24 13:16 Results Reviewed Results Reviewed: Laboratory Last Values Glucose (Clinic) 153 mg/dL (60-115) H 10/27/24 13:06 Laboratory Tests 11/29/23 06/07/24 06/29/24 08:03 10:41 12:17 Creatinine 0.90 Estimated GFR > 60 Hgb A1c (Clinic) 7.3 H AST 21 ALT 17 Triglycerides Cholesterol LDL Cholesterol, Calc HDL Cholesterol TSH 1.24 Urine Creatinine 204.22 Urine Microalbumin 7.0 Microalb/Creat Ratio 7.7 09/15/24 10:15 Creatinine Estimated GFR Hgb A1c (Clinic) AST ALT Triglycerides 132 Cholesterol 173 LDL Cholesterol, Calc 106 H HDL Cholesterol 41 TSH Urine Creatinine Urine Microalbumin Microalb/Creat Ratio Assessment & Plan Assessment & Plan (1) Type 2 diabetes mellitus with diabetic neuropathy, unspecified: Code(s): E11.40 - Type 2 diabetes mellitus with diabetic neuropathy, unspecified Category: Medical Qualifiers: Diabetes mellitus fpc insulin use: with fpc use Qualified Code(s): E11.40 - Type 2 diabetes mellitus with diabetic neuropathy, unspecified; Z79.4 - director long term care (current) use of insulin Plan In summary this is a 64-year-old male with controlled type 2 diabetes and complications. Diabetic diet reviewed. Reviewed complications associated with uncontrolled diabetes. Continue current regimen: Tresiba 76 units daily Lispro 12 before breakfast, 14 before lunch and dinner Mounjaro 7.5 mg weekly Jardiance 25 mg daily Check electrolytes and TSH and creatinine given cramping reported in hands and feet. Advised patient to increase fluid intake since dehydration may also cause cramping. I reviewed the most recent note from Cardiology. It also notes that he is not on a statin for unknown reasons, and the note will be forwarded to PCP for recommendations. We will reach out to the PCP office to see if patient has an intolerance or allergy to statin. LDL is above goal. Follow up in 3 months for diabetes. Orders: Orders Magnesium Today E11.40 - Type 2 diabetes mellitus with diabetic neuropathy, unspecified, Z79.4 - director long term care (current) use of insulin AMB Hemoglobin A1c Today E11.40 - Type 2 diabetes mellitus with diabetic neuropathy, unspecified, Z79.4 - penitentiary (current) use of insulin Basic Metabolic Panel Today E11.40 - Type 2 diabetes mellitus with diabetic neuropathy, unspecified, Z79.4 - director long term care (current) use of insulin TSH reflex Free T4 Today E11.40 - Type 2 diabetes mellitus with diabetic neuropathy, unspecified, Z79.4 - director long term care (current) use of insulin Coding Level of Care Code Est Pt Level 4 (76122) Complex EM visit Add On G2211 Diagnoses Type 2 diabetes mellitus with diabetic neuropathy, with long-term current use of insulin E11.40; Z79.4 Diabetes mellitus fpc insulin use: with fpc use
[2024-10-27 12:55] VITALS: BP 100/64; PULSE 93; O2SAT 97; BMI 32.3
[2024-10-27 13:12] LABS: Glucose, Whole Blood 153 mg/dL (60-115)
--- OUTSIDE RECORDS SUMMARY | 2024-10-27 14:18 | XMS_ITS | Encounter Summary ---
Author Organization [facility] Address [address] [place] [address] 7t [place] [address] Care Team Providers Care Focused Factory Manager Name Role Phone Galo Fang MD Primary Care Provide r Encounter Details Date Type Department Care Team (Late st Contact Info) Description 12/23/2022 Abstract [facility] MEDICINE [address] [place] [address] [phone] Galo Fang MD [address] [place] [address] [phone] Social History Tobacco Use Types Packs/Day Years [...] Care Team (Late st Contact Info) Description 12/08/2024 9:15 AM EDT Clinical Support [facility] MED[facility]INE [address] [place] [address] [phone] 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 RN 12/28/2024 2:00 PM EDT Office Visit [address] [phone] Galo Fang MD [address] [place] [address]655 documented as of this encounter Procedures Procedure Name Priority Date/Time Associated Diagnosis Comments HM COLONOSCOPY Routine 07/29/2018 documented in this encounter Results * Hm Colonoscopy (07/29/2018) Colonoscopy Normal Normal 07/29/2018 Georgia Orozco - 07/29/2018 1:52 PM EST Recommended 10 year follow up us Historical Provider HEALTH MAINTENANCE Final Result documented in this encounter Visit Diagnoses Not on filedocumented in this encounter Care Teams Focused Factory Manager Relationship Specialty Start Date End Date Galo Fang MD [address] [place] [address] PCP - General Internal Medicine 04/04/14 documented as of this encounter
--- OUTSIDE RECORDS SUMMARY | 2024-10-27 14:18 | XMS_ITS | Encounter Summary ---
Author Organization [employer] Address [address] [facility] 7t [place] [address] Care Team Providers Care Remote Sensing Research Scientist Name Role Phone Galo Fang MD Primary Care Provide r Reason for Visit * Reason Comments Med Refill Encounter Details Date Type Department Care Team ([facility] st Contact Info) Description 09/08/2024 Refill [facility] 230 [place], [place] [phone] Carroll Roberts MD 230 [place], [place] [phone] Uncomplicated opioid dependence (CMS/HCC) Social History Tobacco [...] Description 12/08/2024 9:15 AM EDT Clinical Support [facility] [address] [place] [phone] 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, GULSHAN 12/28/2024 2:00 PM EDT Office Visit [facility] [address] [place] [address] Galo Fang MD [address] [place] [address] [phone] documented as of this encounter Visit Diagnoses Diagnosis Uncomplicated opioid dependence (CMS/HCC) documented in this encounter Additional Health Concerns Assessment Noted Time PHQ-9 Depression Total Score: 0 05/26/20 24 9:56 AM EDT documented as of this encounter Care Teams Remote Sensing Research Scientist Relationship Specialty Start Date End Date Galo Fang MD [address] [place] [phone] PCP - General Internal Medicine 04/04/14 documented as of this encounter
--- OUTSIDE RECORDS SUMMARY | 2024-10-27 14:18 | XMS_ITS | Encounter Summary ---
Author Organization [employer] [facility] Address [address] [facility] 7t [place] [address] Care Team Providers Care Sales Service Manager Name Role Phone Galo Fang MD Primary Care Provide r Reason for Visit * Reason Onset Date Comments Med Refill TP 01/02/2023 Encounter Details Date Type Department Care Team (Late st Contact Info) Description 01/02/2023 Telephone [facility] MEDICINE [address] [place] [address] [phone] Carroll Roberts MD 230 [place], [place] [phone] Med Refill; TP Social History Tobacco Use [...] Description 12/08/2024 9:15 AM EDT Clinical Support [facility] [address] [place] [address] 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 RN 12/28/2024 2:00 PM EDT Office Visit [facility] [address] [place] [address] Galo Fang MD [address] [place] [address] documented as of this encounter Visit Diagnoses Diagnosis Uncomplicated opioid dependence (CMS/[facility]) documented in this encounter Care Teams Sales Service Manager Relationship Specialty Start Date End Date Galo Fang MD [address] [place] [address] PCP - General Internal Medicine 04/04/14 documented as of this encounter
--- OUTSIDE RECORDS SUMMARY | 2024-10-27 14:18 | XMS_ITS | Encounter Summary ---
Author Organization [employer] [facility] Address [address] [place] [address] 7t [place] [address] Care Team Providers Care Licensed Funeral Director Name Role Phone Galo Fang MD Primary Care Provide r Reason for Visit * Reason Comments Med Refill Encounter Details Date Type Department Care Team (Late st Contact Info) Description 11/03/2022 Refill [facility] [address] [place] [address] [phone] Jess Barriga MD [address] [place] [address] [phone] Mild intermittent asthma without complication Social History [...] Description 12/08/2024 9:15 AM EDT Clinical Support [facility] [address] [place] [address] [phone] 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 RN 12/28/2024 2:00 PM EDT Office Visit [facility] [address] [place] [address] [phone] Galo Fang MD [address] [place] [address] [phone] documented as of this encounter Visit Diagnoses Diagnosis Mild intermittent asthma without complication documented in this encounter Care Teams Licensed Funeral Director Relationship Specialty Start Date End Date Galo Fang MD [address] [place] [phone] PCP - General Internal Medicine 04/04/14 documented as of this encounter
--- OUTSIDE RECORDS SUMMARY | 2024-10-27 14:18 | XMS_ITS | Encounter Summary ---
Author Organization [employer] [facility] Address [address] [place] [address] 7t [place] [address] Care Team Providers Care Tetryl Screen Operator Name Role Phone Galo Fang MD Primary Care Provide r Reason for Visit * Reason Comments Med Refill Encounter Details Date Type Department Care Team (Late Contact Info) Description 11/07/2022 Refill [facility] MEDICINE [address] [place] [address] [phone] Carroll Roberts MD [address] [place] [address] [phone] Uncomplicated opioid dependence (CMS/HCC) Social History Tobacco [...] Department Care Team (Late Contact Info) Description 12/08/2024 9:15 AM EDT Clinical Support [facility] MEDICINE [address] [place] [address] [phone] 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 RN 12/28/2024 2:00 PM EDT Office Visit [facility] MED[facility]INE [address] [place] [address] [phone] Galo Fang MD [address] [place] [address] [phone] documented as of this encounter Visit Diagnoses Diagnosis Uncomplicated opioid dependence (CMS/HCC) documented in this encounter Care Teams Tetryl Screen Operator Relationship Specialty Start Date End Date Galo Fang MD [address] [place] [address] [phone] PCP - General Internal Medicine 04/04/14 documented as of this encounter
--- OUTSIDE RECORDS SUMMARY | 2024-10-27 14:18 | XMS_ITS | Encounter Summary ---
Author Organization [employer] [facility] Address [address] [place] [address] 7t [place] [address] Care Team Providers Care Sustainability Project Coordinator Name Role Phone Galo Fang MD Primary Care Provide r Reason for Visit * Reason Comments Med Refill Encounter Details Date Type Department Care Team (Late st Contact Info) Description 11/12/2022 Refill [facility] [address] [place] [address] [phone] Galo Fang MD [address] [place] [address] [phone] Gastroesophageal reflux disease, unspecified whether esophagitis present [...] Description 12/08/2024 9:15 AM EDT Clinical Support [facility] MEDICINE [address] [place] [address] [phone] 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 RN 12/28/2024 2:00 PM EDT Office Visit [facility] MEDICINE [address] [place] [address] [phone] Galo Fang MD [address] [place] [address] [phone] documented as of this encounter Visit Diagnoses Diagnosis Gastroesophageal reflux disease, unspecified whether esophagitis present documented in this encounter Care Teams Sustainability Project Coordinator Relationship Specialty Start Date End Date Galo Fang MD [address] [place] [address] 26071 PCP - General Internal Medicine 04/04/14 documented as of this encounter
--- OUTSIDE RECORDS SUMMARY | 2024-10-27 14:19 | XMS_ITS | Encounter Summary ---
Author Organization [employer] Address [address] [facility] 7t [place] [address] Care Team Providers Care Lead Miner Blasting Name Role Phone Galo Fang MD Primary Care Provide r Reason for Visit * Reason Comments Med Refill Encounter Details Date Type Department Care Team ([facility] st Contact Info) Description 10/08/2023 Refill [facility] 230 [place], [place] [phone] Carroll Roberts MD 230 [place], [place] [phone] Uncomplicated opioid dependence (CMS/HCC) Social History Tobacco [...] Clinical Support [facility] MEDICINE [address] [place] [address] [phone] 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, GULSHAN 12/28/2024 2:00 PM EDT Office Visit [facility] MED[facility]INE [address] [place] [address] [phone] Galo Fang MD [address] [place] [address] 79[address] documented as of this encounter Visit Diagnoses Diagnosis Uncomplicated opioid dependence (CMS/HCC) documented in this encounter Additional Health Concerns Assessment Noted Time PHQ-9 Depression Total Score: 0 07/01/20 23 1:10 PM EST documented as of this encounter Care Teams Lead Miner Blasting Relationship Specialty Start Date End Date Galo Fang MD [address] [place] [address] [phone] PCP - General Internal Medicine 04/04/14 documented as of this encounter
--- OUTSIDE RECORDS SUMMARY | 2024-10-27 14:19 | XMS_ITS | Encounter Summary ---
Author Organization [employer] Address [address] [facility] 7t [place] [address] Care Team Providers Care Director Of Maternity Services Name Role Phone Galo Fang MD Primary Care Provide r Reason for Visit * Reason Onset Date Comments Med Refill 10/06/2024 Encounter Details Date Type Department Care Team ([facility] st Contact Info) Description 10/06/2024 Refill [facility] MEDICINE [address] [place] [address] 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 RN Social History Tobacco Use Types Packs/Day Years [...] Description 12/08/2024 9:15 AM EDT Clinical Support [facility] MEDICINE [address] [place] [address] [phone] 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 RN 12/28/2024 2:00 PM EDT Office Visit [facility] MED[facility]INE [address] [place] [address] [phone] Galo Fang MD [address] [place] [phone] documented as of this encounter Visit Diagnoses Not on filedocumented in this encounter Additional Health Concerns Assessment Noted Time PHQ-9 Depression Total Score: 0 05/26/20 24 9:56 AM EDT documented as of this encounter Care Teams Director Of Maternity Services Relationship Specialty Start Date End Date Galo Fang MD [address] [place] [address] PCP - General Internal Medicine 04/04/14 documented as of this encounter
--- OUTSIDE RECORDS SUMMARY | 2024-10-27 14:19 | XMS_ITS | Encounter Summary ---
Author Organization [employer] Address [address] [facility] 7t [place] [address] Care Team Providers Care Brush Stainer Name Role Phone Galo Fang MD Primary Care Provide r Reason for Visit * Reason Comments Med Refill Encounter Details Date Type Department Care Team ([facility] st Contact Info) Description 12/03/2023 Refill [facility] MED[facility]INE [address] [place], [place] [phone] Carroll Roberts MD 230 [place], [place] [phone] Uncomplicated opioid dependence (CMS/HCC) Social History Tobacco [...] Description 12/08/2024 9:15 AM EDT Clinical Support [facility]INE [address] [place] [phone] 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, GULSHAN 12/28/2024 2:00 PM EDT Office Visit [facility] [address] [place] [address] 29127 Galo Fang MD [address] [place] [phone] documented as of this encounter Visit Diagnoses Diagnosis Uncomplicated opioid dependence (CMS/HCC) documented in this encounter Additional Health Concerns Assessment Noted Time PHQ-9 Depression Total Score: 0 07/01/20 23 1:10 PM EST documented as of this encounter Care Teams Brush Stainer Relationship Specialty Start Date End Date Galo Fang MD [address] [place] [address] 55057 PCP - General Internal Medicine 04/04/14 documented as of this encounter
--- OUTSIDE RECORDS SUMMARY | 2024-10-27 14:19 | XMS_ITS | Encounter Summary ---
Author Organization [employer] Address [address] [facility] [address] [place] [address] Care Team Providers Care Stereoplotter Operator Name Role Phone Galo Fang MD Primary Care Provide r Encounter Details Date Type Department Care Team ([facility] st Contact Info) Description 10/27/2024 Orders Only GENERIC EXTERNAL DATA DEPARTMENT Provider, Generic External Data Social History Tobacco Use Types Packs/Day Years [...] Description 12/08/2024 9:15 AM EDT Clinical Support [facility] [address] [place] [address] 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 RN 12/28/2024 2:00 PM EDT Office Visit [facility] [address] [place] [address] Galo Fang MD [address] [place] [address] documented as of this encounter Procedures Procedure Name Priority Date/Time Associated Diagnosis Comments GLUCOSE, WHOLE BLOOD Routine 10/27/2024 1:06 PM EDT documented in this encounter Results * (ABNORMAL) Glucose, Whole Blood (10/27/2024 1:06 PM EDT) Glucose, Whole Blood 153(H) 60 - 115 mg/dL [facility] Comment:METER #: [id number] Testing performed in the Endocrinology Department [address] , [address], [facility]. 10/27/2024 1:06 PM EDT 10/27/2024 1:12 PM EDT us Generic External Data Provider LAB BLOOD ORDERAB LES Final Result [facility] [address] [place] [address] [phone] documented in this encounter Visit Diagnoses Not on filedocumented in this encounter Additional Health Concerns Assessment Noted Time PHQ-9 Depression Total Score: 0 05/26/20 24 9:56 AM EDT documented as of this encounter Care Teams Stereoplotter Operator Relationship Specialty Start Date End Date Galo Fang MD [address] [place] [phone] PCP - General Internal Medicine 04/04/14 documented as of this encounter
--- OUTSIDE RECORDS SUMMARY | 2024-10-27 14:19 | XMS_ITS | Encounter Summary ---
Author Organization [employer] Address [address] [facility] [address] [place] [address] Care Team Providers Care Office Support Name Role Phone Galo Fang MD Primary Care Provide r Reason for Visit * Reason Comments Med Refill Encounter Details Date Type Department Care Team ([facility] st Contact Info) Description 12/23/2023 Refill [facility] [address] [place], [place] [phone] Carroll Roberts MD [address] [place], [place] [phone] Constipation, unspecified constipation type Social History Tobacco [...] Description 12/08/2024 9:15 AM EDT Clinical Support [facility] [address] [place] [phone] 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 RN 12/28/2024 2:00 PM EDT Office Visit [facility] [address] [place] [phone] Galo Fang MD [address] [place] [phone] documented as of this encounter Visit Diagnoses Diagnosis Constipation, unspecified constipation type documented in this encounter Additional Health Concerns Assessment Noted Time PHQ-9 Depression Total Score: 0 07/01/20 23 1:10 PM EST documented as of this encounter Care Teams Office Support Relationship Specialty Start Date End Date Galo Fang MD [address] [place] [phone] PCP - General Internal Medicine 04/04/14 documented as of this encounter
--- OUTSIDE RECORDS SUMMARY | 2024-10-27 14:19 | XMS_ITS | Encounter Summary ---
Author Organization [employer] Address [address] [facility] [address] [place] [address] Care Team Providers Care English And Reading Instructor Name Role Phone Galo Fang MD Primary Care Provide r Encounter Details Date Type Department Care Team ([facility] st Contact Info) Description 10/27/2024 Population Health Risk Score [facility] (C3) Department [address] [facility] [place]NOTE 2] [address] [place] [address] Provider, Population Health Generic Social History Tobacco Use Types Packs/Day Years [...] Description 12/08/2024 9:15 AM EDT Clinical Support [facility] [address] [place] [phone] 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 RN 12/28/2024 2:00 PM EDT Office Visit [facility] [address] [place] [phone] Galo Fang MD [address] [place] [phone] documented as of this encounter Visit Diagnoses Not on filedocumented in this encounter Additional Health Concerns Assessment Noted Time PHQ-9 Depression Total Score: 0 05/26/20 9:56 AM EDT documented as of this encounter Care Teams English And Reading Instructor Relationship Specialty Start Date End Date Galo Fang MD [address] [place] [phone] PCP - General Internal Medicine 04/04/14 documented as of this encounter
--- OUTSIDE RECORDS SUMMARY | 2024-10-27 14:19 | XMS_ITS | Clinical Summary ---
Author Organization [employer] Address [address] [facility] [address] [place] [address] Care Team Providers Care Silverware Buffer Name Role Phone Galo Fang MD Primary [...] 2 WEEKS 023 Active Continuous Blood Gluc Advanced Nursing Professor (FreeStyle Yahaira 2 Dorothy) device USE DIRECTED 023 Active FREESTYLE LITE [...] MINIMAL RESPONSE 2 each 1 024 Active cetirizine (ZyrTEC) 10 MG tabletIndicatio ns:Seasonal allergies TAKE 1 TABLET BY MOUTH EVERY DAY IN THE MORNING 90 tablet 1 024 Active insulin lispro (HumaLOG) 100 UNIT/ML injection INJECT 14 UNITS SUBCUTANEOUSLY BEFORE BREAKFAST, 16 UNITS BEFORE LUNCH, AND 18 UNITS BEFORE SUPPER 10 mL 6 024 Active polyethylene glycol, PEG, 3350 (GaviLAX) [...] THE MORNING 90 capsule 1 024 Active Diclofenac Sodium 1 % gel APPLY 2 GRAMS TOPICALLY 4 TIMES A DAY 100 g 2 025 Active buprenorphine-n aloxone (Suboxone) 2-0.5 MG per sublingual filmIndications :Uncomplicated opioid dependence (CMS/HCC) Place 1 Film under the tongue Once per day. Do not start before October 13, 2024. 28 Film 1 025 2024 Active Buprenorphine HCl-Naloxone HCl (Suboxone) 8-2 MG SL filmIndications :Uncomplicated opioid dependence (CMS/HCC) Place 1 Film under the tongue Once per day. Do not start before October 13, 2024. 28 Film 1 025 2024 Active Tresiba FlexTouch 200 UNIT/ML injection INJECT 80 UNITS AT BEDTIME 9 mL 5 025 Active baclofen (Lioresal) 10 MG tablet TAKE 1/2 TABLET BY MOUTH 3 TIMES DAILY 45 tablet 025 Active acetaminophen (Tylenol) 325 MG tabletIndicatio ns:Chronic midline low back pain without sciatica TAKE 2 TABLETS BY MOUTH EVERY 8 HOURS NEEDED FOR PAIN 90 tablet 1 025 Active Tresiba FlexTouch 200 UNIT/ML injection INJECT 80 UNITS AT BEDTIME 9 mL 5 024 2024 Discontinued acetaminophen (Tylenol) 325 MG tabletIndicatio ns:Chronic midline low back pain without sciatica TAKE 2 TABLETS BY MOUTH EVERY 8 HOURS NEEDED FOR PAIN 90 tablet 1 024 2024 Discontinued Buprenorphine HCl-Naloxone HCl (Suboxone) 8-2 MG SL filmIndications :Uncomplicated opioid dependence (CMS/HCC) Place 1 Film under the tongue Once per day. 28 Film 025 2024 Discontinued(R eorder (will not trigger notification to Pharmacy)) buprenorphine-n aloxone (Suboxone) 2-0.5 MG per sublingual filmIndications :Uncomplicated opioid dependence (CMS/HCC) Place 1 Film under the tongue Once per day. 28 Film 025 2024 Discontinued(R eorder (will not trigger notification to Pharmacy)) baclofen (Lioresal) 10 MG tablet TAKE 1/2 TABLET BY MOUTH 3 TIMES DAILY 45 tablet 025 2024 Discontinued Active Problems Problem Noted Date Diagnosed Date [...] acute bony abnormality. Pt was seen by Instructional Services Librarian 05/17/2024 work up in progress Assessment & [...] L1-L2 levels. Under the care of [facility] pain Management, they recommended PT and if [...] LS Spine, right hip Refer back to [facility] Assessment & Plan (04/06/2023 1:21 PM EDT): Pt with previous c/o acute om chronic lbp currently back pain is worse per his report intensity 4/10 no radiation not a good candidate for NSAIDS, continues to decline PT Pt was referred to [facility], pt did not go. plain film of LS spine unremarkable [facility] care 03/02/2023 Assessment & Plan (09/12/2024 9:25 AM EST): PSA 04/06/2023 : Normal, repeat ordered Colonoscopy: 07/29/2018 at [facility] diverticulosis Assessment & Plan (07/01/2023 1:02 PM EST): PSA 04/06/2023 : Normal Colonoscopy: 07/29/2018 at [facility] diverticulosis Assessment & Plan (04/06/2023 1:22 PM EDT): Colonoscopy: 07/29/2018 at [facility] diverticulosis Aortic valve stenosis 07/17/2022 Assessment & Plan [...] exam was last done by Dr. Littlejohn (video player mechanic) No diabetic retinopathy. 07/31/2024 Microalbumin checked on: 11/29/2023 was: 7 Pt is on ARB (lisinopril caused him itchy throat and ? angioedema ? ) . Foot check risk of zero Pt reports compliance with Asa 81 mg po daily Plan: as per Marine Service Operator Pt advised to: adhere to diabetic diet [...] exam was last done by Dr. Littlejohn (video player mechanic) No diabetic retinopathy. Microalbumin checked on: 11/29/2023 was: 7 Pt is no longer on an WALDEMAR inhibitor. (lisinopril caused him itchy throat and ? angioedema ? ) . Foot check risk of zero Pt reports compliance with Asa 81 mg po daily Plan: as per Marine Service Operator Pt advised to: adhere to diabetic diet [...] exam was last done by Dr. Littlejohn (video player mechanic) No diabetic retinopathy. Microalbumin checked on: 01/14/2021 was: 22 Pt is no longer on an WALDEMAR inhibitor. (lisinopril caused him itchy throat and ? angioedema ? ) . Foot check risk of zero Pt reports compliance with Asa 81 mg po daily Plan: as per Marine Service Operator Pt advised to: adhere to diabetic diet [...] exam was last done by Dr. Littlejohn (video player mechanic) No diabetic retinopathy. Microalbumin checked on: 01/14/2021 was: 22 Pt is no longer on an WALDEMAR inhibitor. (lisinopril caused him itchy throat and ? angioedema ? ) . Will repeat Foot check risk of zero Pt reports compliance with Asa 81 mg po daily Plan: as per Marine Service Operator Pt advised to: adhere to diabetic diet [...] exam was last done by Dr. Littlejohn (video player mechanic) No diabetic retinopathy. Microalbumin checked on: 01/14/2021 was: 22 Pt is no longer on an WALDEMAR inhibitor. (lisinopril caused him itchy throat and ? angioedema ? 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 who he attributes the fact that [...] Encounters Date Type Department Care Team Description 10/27/2024 Telephone [facility] [address] [place] [address] Galo Fang MD Call Back Request (/) 10/27/2024 Orders Only GENERIC EXTERNAL DATA DEPARTMENT Provider, Generic External Data 10/27/2024 Population Health Risk Score Community [facility] ([facility]) Department [address] [phone] Provider, Population Health Generic 10/24/2024 Refill [facility] [address] [facility] [place] [address] Galo Fang MD Chronic midline low back pain without sciatica 10/24/2024 Refill [facility] [address] [place] [address] Galo Fang MD 10/13/2024 9:30 AM EST Office Visit [facility] [address] [facility] [place] [address] Carroll Roberts MD Opioid use disorder in remission (Primary Dx) 10/10/2024 Refill [facility] [address] [facility] [place] [address] Galo Fang MD 10/06/2024 Refill [facility] [address] [facility] [place] [address] 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, RN Uncomplicated opioid dependence ([facility]) 10/06/2024 Refill [facility] [address] [facility] [place] [address] 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 RN 10/06/2024 Refill [facility] [address] [facility] [place] [address] 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, GULSHAN 09/25/2024 Refill [facility] [address] [facility] [place] [address] Galo Fang MD 09/20/2024 Outside Procedure [facility] [address] [place] [address] Ankit Batesn, OD Presbyopia (Primary Dx) 09/15/2024 9:00 AM EST Office Visit [facility] [address] [place] [address] Ankit Batesn, OD Hyperopia of both eyes (Primary Dx) 09/15/2024 Travel 09/15/2024 Orders Only GENERIC EXTERNAL DATA DEPARTMENT Provider, Generic External Data 09/15/2024 Refill [facility] [address] [facility] [place] [address] Deidre Anton RN Uncomplicated opioid dependence ([facility]) 09/13/2024 Refill [facility] [address] [place] [address] Galo Fang MD 09/12/2024 1:00 PM EST Office Visit [facility] [address] [facility] [place] [address] Galo Fang MD Type 2 diabetes mellitus with diabetic polyneuropathy, with long-term current use of insulin ([facility]) (Primary Dx); Essential hypertension; Chronic midline low back pain without sciatica; Other osteoporosis without current pathological fracture; Mild intermittent asthma without complication; Cardiomyopathy, unspecified type ([facility]); MILTON positive; Mixed hyperlipidemia; Bicuspid aortic valve; History of aortic valve replacement; Aortic valve stenosis, etiology of cardiac valve disease unspecified; Morbid obesity ([facility]); Preventative health care; Depressive disorder 09/12/2024 Travel 09/08/2024 Refill [facility] [address] [place] [address] Carroll Roberts MD Uncomplicated opioid dependence ([facility]) 09/01/2024 Telephone [facility] [address] [place] [address] Galo Fang MD Chart Prep 08/31/2024 Patient Outreach [facility] [address] [place] [address] Galo Fang MD Pre-visit Planning (SDOH Screening negative and Tobacco screening negative) 08/21/2024 Patient Outreach [facility] [address] [place] [address] Queta Mohan RC Outreach/No Answer 08/18/2024 9:30 AM EST Office Visit [facility] [address] [place] [address] Carroll Roberts MD Opioid use disorder in remission (Primary Dx); Opioid type dependence, continuous ([facility]) 08/18/2024 Travel 08/17/2024 Refill [facility] [address] [place] [address] Galo Fang MD 08/12/2024 Refill [facility] [address] [place] [address] Galo Fang MD Gastroesophageal reflux disease without esophagitis 07/31/2024 10:00 AM EST Office Visit [facility] [address] [place] [address] Paulo, Pat, OD Diabetes type 2, no ocular involvement ([facility]) (Primary Dx); 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; Meibomian gland disease, unspecified laterality; Combined forms of age-related cataract of both eyes; Presbyopia 07/31/2024 Travel from Last 3 Months Immunizations Name Administration [...] Description 12/08/2024 9:15 AM EDT Clinical Support [facility] [address] [place] [phone] 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, GULSHAN 12/28/2024 2:00 PM EDT Office Visit [facility] [address] [place] [phone] Galo Fang MD [address] [place] [address] Health Maintenance Due Date Last Done Comments CT Colonography 1960 FIT DNA/Cologuard 1960 FIT 1960 FOBT 1960 Sigmoidoscopy 1960 Diabetes: Foot Exam 1970 Zoster Vaccines (1 of 2) 2010 RSV Patients and Patients Aged 60 years or older (1 - Risk 60-74 years 1-dose series) 2020 COVID-19 Vaccine ( season) 2024 08/14/2021, 11/25/2020, 10/28/2020 Diabetes: Hemoglobin A1C 03/12/2025 025, 05/23/2024, 11/09/2023, Additional history exists DTaP/Tdap/Td Vaccines (2 - Td or Tdap) 04/04/2025 04/04/2015, 02/06/2003 Depression Screening 05/26/2025 05/26/2024, 05/26/20 Diabetes: Urine Protein Screening 06/07/2025 06/07/2024, 11/29/2023, 03/11/2022, Additional history exists Tobacco Screening 08/01/2025 08/01/2024 SDOH Screening 08/31/2025 08/31/2024 Alcohol/Substance Use Screening 09/12/2025 09/12/2024 Lipid Panel 09/15/2025 09/15/2024, 11/14, 04/06/2023, Additional history exists Eye Exam 07/31/2026 07/31/2024, 07/16, 07/31/2024, Additional history exists Colonoscopy 07/29/2028 07/29/2018, 07/16, 03/16/2013 Colorectal Cancer Screening 07/29/2028 Hepatitis A Vaccines Aged Out 12/16/2010, 07/23/20 09 No longer eligible based on patient's age to complete this topic Hepatitis B Vaccines Completed 12/16/2010, 08/20/2009, 07/23/2009 [...] topic Meningococcal Vaccine Aged Out No kirill kmy eligible based on patient's age to complete this topic RSV under 20 months Aged Out No longe r eligible based on patient's age to complete this topic Rotavirus Vaccines Aged Out No longer eligible based on patient's age to complete this topic Procedures Procedure Name Priority Date/Time Associated Diagnosis Comments GLUCOSE, WHOLE BLOOD Routine 10/27/2024 1:06 PM EDT TESTOSTERONE, FREE (DIALYSIS) AND TOTAL,MS Routine 09/15/2024 10:15 AM EST RHEUMATOID FACTOR Routine 09/15/2024 10: 15 AM EST PSA, SCREEN Routine 09/15/2024 10:15 AM EST Preventative health care LIPID PANEL, STANDARD Routine 09/15/2024 10:15 AM EST Mixed hyperlipidemia POCT GLYCATED HEMOGLOBIN, TOTAL Routine 09/12/2024 1:00 PM EST Type 2 diabetes mellitus with diabetic polyneuropathy, with long-term current use of insulin ([facility]) POCT GLUCOSE Routine 09/12/2024 12:55 PM EST Type 2 diabetes mellitus with diabetic polyneuropathy, with long-term current use of insulin (CMS/HCC) POCT FRANCESCA-14 URINE DRUG SCREEN Routine 08/18/2024 9:05 AM EST Opioid type dependence, continuous ([facility]) OCT, OPTIC NERVE - OU - BOTH EYES Routine 07/31/2024 10:00 AM EST 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 10/27/2024 1:06 PM EDT 10/27/2024 1:12 PM EDT Generic External Data Provider LAB BLOOD ORDERAB LES Final Result Performing Organization Address [facility] Co de Phone Number [facility] [address] [place] [phone] * PSA, Screen (09/15/2024 10:15 AM EST) [facility] PSA, Total 0.51 <0.05 - 4.0 ng/mL [facility] Comment:PSA methodology: Marcelina Mar i ChemiluminescentMicroparticle Immunoassay (CMIA) Blood Venous blood specimen / Unknown 09/15/2024 10:15 AM EST 09/15/2024 12:26 PM EST us Galo Ramey MD LAB BLOOD ORDERABLES Final Result Performing Organization Address [facility] Co de Phone Number [facility] [address] [place] [phone] * Rheumatoid Factor (09/15/2024 10:15 AM EST) [facility] Rheumatoid Factor <13.0 <15.0 IU/mL [facility] 09/15/2024 10:1 5 AM EST 09/15/2024 12:26 PM EST us Generic External Data Provider LAB BLOOD ORDERAB LES Final Result Performing Organization Address [facility] Co de Phone Number [facility] [address] [place] [phone] * Testosterone, Free (Dialysis) And Total, MS (09/15/2024 10:15 AM EST) Testosterone, Total 382 250 - 1100 ng/dL [facility] Comment:Men with clinically significant hypogonadalsymptoms and testosterone values repeatedly inthe range of the 200-300 ng/dL or less, maybenefit from testosterone treatment afteradequate risk and benefits counseling.For additional information, please refer [email or web address].Next One's On Me (NOOM)/faq/[email or web address](This link is being provided for informational/educational purposes only.)This test was developed and its analytical performancecharacteristics have been determined by [employer] [place], [place]. It hasnot been cleared or approved by the U.S. Food and DrugAdministration. This assay has been validated pursuantto the CLIA regulations and is used for clinicalpurposes. Testosterone, Free 54.6 35.0 - 155.0 pg/mL [facility] Comment:This test was develo ped and its analytical performancecharacteristics have been determined by [employer] [facility] [employer] [place], [place]. It hasnot been cleared or approved by the U.S. Food and DrugAdministration. This assay has been validated pursuantto the CLIA regulations and is used for clinicalpurposes.THIS TEST WAS PERFORMED AT:[employer] [id number] [place] [address]ORSPERLNHAN LUX MD,PHD 09/15/2024 10:1 5 AM EST 09/15/2024 12:22 PM EST us Generic External Data Provider LAB BLOOD ORDERAB LES Final Result [facility] [address] [place] [address] [phone] * (ABNORMAL) Lipid Panel, Standard (09/15/2024 10:15 AM EST) Triglycerides 132 <150 mg/dL [facility] Comment:Desirable Triglyceri de: less than 150 mg/dLBorderline High Triglyceride 150-199 mg/dLHigh Triglyceride: 200-499 mg/dLVery High Triglyceride: greater than or equal to 5OO mg/dL Cholesterol 173 <200 mg/dL [facility] Comment:Desirable Cholestero l: less than 200 mg/dLBorderline High Cholesterol: 200-239 mg/dLHigh Cholesterol: greater than 239 mg/dL LDL Cholesterol Calculated 106(H) <100 mg/dL [facility] Comment:Desirable LDL: less than 100 mg/dLNear Optimal/Above Optimal LDL: 110- 129 mg/dLBorderline High LDL: 130-159 mg/dLHigh LDL: 160-189 mg/dLVery High LDL: greater than or equal to 190 mg/dL HDL Cholesterol 41 >40 mg/dL [facility] Comment:Desirable HDL: great er than 40 mg/dL Note: This HDL assay may give artificially low results in patients with liver disease. Blood Venous blood specimen / Unknown 09/15/2024 10:15 AM EST 09/15/2024 12:26 PM EST Galo Ramey MD LAB BLOOD ORDERABLES Final Result [facility] [address] [place], [place] [phone] * (ABNORMAL) POCT HGB A1C (09/12/2024 1:00 [...] Media Lot # [id number] Lot# Expiration Date Blood Capillary blood specimen / Unknown 09/12/2024 12:55 PM EST Galo Ramey MD POINT OF [...] TEST ENTER/EDIT ORDERABLES Final Result * (ABNORMAL) Protein Creatinine Ratio, Urine (06/07/2024 10:41 AM EDT) Creatinine, Urine 204.22 mg/dL [facility] Protein, Total, Random Urine 14(H) <12 mg/dL [facility] Protein/Creati nine Ratio, Ur 0.07 <0.2 [facility] Comment:The spot urine prote in:creatinine ratio may increase to 0.3during normal . 06/07/2024 10:4 1 AM EDT 06/07/2024 10:56 AM EDT Generic External Data Provider LAB URINE ORDERAB LES Final Result [facility] [address] [place] [phone] * Hepatitis Panel, General (06/07/2024 10:41 AM EDT) Hepatitis A IgM Nonreactive Nonreactive [facility] Comment:IgM antibodies to ALBRECHT V not detected; does not exclude earlyacute or recovered HAV infection. ~Hepatitis B Surface Antibody NONREACTIVE Nonreactive [facility] Comment:Nonreactive: < 8.00 mIU/mL Hepatitis B Core Antibody Nonreactive Nonreactive [facility] Hepatitis C Antibody Nonreactive Nonreactive [facility] Comment:Antibodies to HCV no t detected; does not exclude early acuteHCV infection. Hepatitis B Surface Ag Negative Negative [facility] 06/07/2024 10:4 1 AM EDT 06/07/2024 10:41 AM EDT us Generic External Data Provider LAB BLOOD ORDERAB LES Final Result Performing Organization Address [facility] Co de Phone Number [facility] [address] [place] [phone] * HIV-1/2 Antigen and Antibodies, Fourth Generation, with Reflexes (06/07/2024 10:41 AM EDT) HIV AB/AG Nonreactive Nonreactive [facility] Comment:HIV-1 p24 Ag and/or HIV-1/HIV-2 Ab not detected.A test result that is nonreactive does not exclude thepossibility of exposure to or infection with HIV-1 and/orHIV-2. Nonreactive results in this assay for individualswith prior exposure to HIV-1 and/or HIV-2 may be due toantigen and antibody levels that are below the limit ofdetection of this assay.The wiMAN HIV Ag/Ab Combo assay result andsupplemental assay results should be interpreted inconjunction with the patient's clinical presentation,history and other laboratory results. If the results areinconsistent with clinical evidence, additional testing issuggested to confirm the result. Blood Venous blood specimen / Unknown 06/07/2024 10:41 AM EDT 06/07/2024 10:41 AM EDT us Carorll Roberts MD LAB BLOOD ORDERABLES Final Res ult Performing Organization Address [facility]/ZIP Co de Phone Number [facility] [address] [place] [address] [phone] * Colonoscopy (07/29/2018) Colonoscopy Normal Normal 07/29/2018 Georgia Orozco - 07/29/2018 1:52 PM EST Recommended 10 year follow up us Historical Provider MD HEALTH MAINTENANCE Final Result from Last 3 Months or Most Recently Relevant to Health Maintenance Insurance [address] [place], [place] [address] Care Teams Silverware Buffer Relationship Specialty Start Date End Date Galo Fang MD [address] [place] [phone] PCP - General Internal Medicine 04/04/14
--- OUTSIDE RECORDS SUMMARY | 2024-10-27 14:19 | XMS_ITS | Encounter Summary ---
Author Organization [employer] [facility] Address [address] [place] [address] [address] [place] [address] Care Team Providers Care Regional Controller Name Role Phone Galo Fang MD Primary Care Provide r Reason for Visit * Reason Comments Med Refill Encounter Details Date Type Department Care Team (Late Contact Info) Description 03/02/2023 Refill [facility] [address] [place] [address] [phone] Carroll Roberts MD [address] [place] [address] [phone] Uncomplicated opioid dependence (CMS/HCC) Social History Tobacco [...] Description 12/08/2024 9:15 AM EDT Clinical Support [facility] [address] [place] [address] [phone] 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 RN 12/28/2024 2:00 PM EDT Office Visit [facility] [address] [place] [address] [phone] Galo Fang MD [address] [place] [address] [phone] documented as of this encounter Visit Diagnoses Diagnosis Uncomplicated opioid dependence (CMS/HCC) documented in this encounter Care Teams Regional Controller Relationship Specialty Start Date End Date Galo Fang MD [address] [place] [phone] PCP - General Internal Medicine 04/04/14 documented as of this encounter
--- OUTSIDE RECORDS SUMMARY | 2024-10-27 14:19 | XMS_ITS | Encounter Summary ---
Author Organization [employer] Address 75 [facility] 7t [place] [address] Care Team Providers Care Urology Surgeon Name Role Phone Galo Fang MD Primary Care Provide r Reason for Visit * Reason Onset Date Comments Med Refill 10/06/2024 Encounter Details Date Type Department Care Team ([facility] st Contact Info) Description 10/06/2024 Refill [facility] MEDICINE [address] [place] [address] 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 RN Uncomplicated opioid dependence (CMS/HCC) Social History [...] Description 12/08/2024 9:15 AM EDT Clinical Support [facility] MED[facility]INE [address] [place] [address] 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 RN 12/28/2024 2:00 PM EDT Office Visit [facility] [address] [place] [address] Galo Fang MD [address] [place] [address] 35[address] documented as of this encounter Visit Diagnoses Diagnosis Uncomplicated opioid dependence (CMS/HCC) documented in this encounter Additional Health Concerns Assessment Noted Time PHQ-9 Depression Total Score: 0 05/26/20 9:56 AM EDT documented as of this encounter Care Teams Urology Surgeon Relationship Specialty Start Date End Date Galo Fang MD [address] [place] [address] [phone] PCP - General Internal Medicine 04/04/14 documented as of this encounter
--- OUTSIDE RECORDS SUMMARY | 2024-10-27 14:19 | XMS_ITS | Encounter Summary ---
Author Organization [employer] Address 75 [facility] 7t [place] [address] Care Team Providers Care Forms Analyst Name Role Phone Galo Fang MD Primary Care Provide r Reason for Visit * Reason Onset Date Comments Call Back Request 10/27/2024 Encounter Details Date Type Department Care Team ([facility] Contact Info) Description 10/27/2024 Telephone [facility] MEDICINE 230 [place], [place] [phone] Galo Fang MD 230 [place] [address] Call Back Request (/) Social History Tobacco Use Types Packs/Day Years [...] encounter Miscellaneous Notes * Telephone Encounter - Felisha Engle - 10/27/2024 2:15 PM EDT Tc from [facility] with [facility] stating Zohreh Kraft (provider from [facility]) wants to speak with the pt provider (Kenney). [phone] Ext [phone] documented in this encounter Plan of Treatment Upcoming Encounters Date Type Department Care Team (Late st Contact Info) Description 12/08/2024 9:15 AM EDT Clinical Support [facility] MEDICINE [address] [place] [address] 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 RN 12/28/2024 2:00 PM EDT Office Visit [facility] MEDICINE [address] [place] [address] 169[address] Galo Fang MD [address] [place] [address] 9[address] documented as of this encounter Visit Diagnoses Not on filedocumented in this encounter Additional Health Concerns Assessment Noted Time PHQ-9 Depression Total Score: 0 05/26/20 9:56 AM EDT documented as of this encounter Care Teams Forms Analyst Relationship Specialty Start Date End Date Galo Fang MD [address] [place] [address], [place] [address] PCP - General Internal Medicine 04/04/14 documented as of this encounter
--- OUTSIDE RECORDS SUMMARY | 2024-10-27 14:19 | XMS_ITS | Encounter Summary ---
Author Organization [employer] Address 75 [facility] 7t [place] [address] Care Team Providers Care Grease Maker Name Role Phone Galo Fang MD Primary Care Provide r Reason for Visit * Reason Comments OBAT Encounter Details Date Type Department Care Team ([facility] st Contact Info) Description 10/13/2024 9:30 AM EST Office Visit [facility] MEDICINE 230 [place], [place] [phone] Carroll Roberts MD 230 [place], [place] [phone] Opioid use disorder in remission (Primary Dx) Social History Tobacco Use Types Packs/Day Years [...] Progress Notes * Carroll Roberts MD - 10/13/2024 9:30 AM EST Patient ID: Nemesio Ramírez is a 64 y.o. male who presents for follow-up for opioid use disorder in sustained remission. Suboxone 10/2.5 mg on an 8 week schedule. Induction date: 05/10/09. Has been here 14. Years, 11 months Patient not actively enrolled in behavioral health services, completed sessions. 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 LFTs completed 06/07/24 Hep A status: Immunized Hep B status: Immunized Hep C status: 06/07/24 non-reactive HIV status: 06/07/24 non-reactive Last PCP appt 09/12/24, Dr. Moulton. 08/18/24 Utox BUP Doing well. Brigid and New Years with family. Jain. No alcohol, substance use, or smoking. No ADRs. Constipation improved-Senna BID, Colace every day. Feels some dietary changes helping. Less rice. Daily BM, not hard. Thinking about decreasing dose, getting off Suboxone but not now. ---- As above. Continues to do well. Constipation improved. Starting to think about tapering. F/U 8 weeks. Today 10/13/24 F/U for opioid use disorder UTOX BUP Overall, doing well. He is on Moujano, has lost 60 pounds. Blood sugar more controlled. Started Baclofen for pain. Using 5 mg BID. States if uses 2 days in a row feels like he is have WD symptoms. This does not happen if he takes it for 1 day. It dose help his pain. Suboxone 2 /0.5 a.m., 8/2 at bedtime. Also, thinks Suboxone helps his pain a bit. No ADRs, No constipation, Colace & Senna effective. Objective Physical Exam Constitutional: Appearance: Normal appearance. Neurological: Mental Status: He is alert and oriented to person, place, and time. Psychiatric: Mood and Affect: Mood normal. Behavior: Behavior normal. Thought Content: Thought content normal. Assessment/Plan Opioid use disorder in remission UTOX BUP Overall, doing well. He is on Moujano, has lost 60 pounds. Blood sugar more controlled. Started Baclofen for pain. Using 5 mg BID. States if uses 2 it days in a row feels like he is have WD symptoms. This does not happen if he takes it for 1 day. It dose help his pain. Suboxone 2 /0.5 a.m., 8/2 at bedtime. Also, thinks Suboxone helps his pain a bit. No ADRs, No constipation, Colace & Senna effective. As above. Reviewed his concern that Baclofen if decreasing effectiveness of Suboxone. This would be unusual. He does not want to increase his Suboxone dose. He will try taking Baclofen on 1 day at a time. Notify me as needed. If concerns persist, to ask Dr. Moulton about possible alternative Rx. F/U 8 weeks. Diagnoses and all orders for this visit: Opioid use disorder in remission This information has been disclosed to you [...] Description 12/08/2024 9:15 AM EDT Clinical Support [address] [address] 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 RN 12/28/2024 2:00 PM EDT Office Visit [address] [address] Galo Fang MD [address] [place] [address] Scheduled Orders Name Type Priority Associated Diagnoses Orde r Schedule POCT FRANCESCA-14 Urine Drug Screen Point of Care Testing Routine Opioid use disorder in remission Ordered: 10/13/2024 documented as of this encounter Visit Diagnoses Diagnosis Opioid use disorder in remission- Primary documented in this encounter Additional Health Concerns Assessment Noted Time PHQ-9 Depression Total Score: 0 05/26/20 24 9:56 AM EDT documented as of this encounter Care Teams Grease Maker Relationship Specialty Start Date End Date Galo Fang MD [address] [place] [address] PCP - General Internal Medicine 04/04/14 documented as of this encounter
--- OUTSIDE RECORDS SUMMARY | 2024-10-27 14:19 | XMS_ITS | Encounter Summary ---
Author Organization [employer] Address 75 [facility] 7t [place] [address] Care Team Providers Care Cpr Instructor Name Role Phone Galo Fang MD Primary Care Provide r Reason for Visit * Reason Onset Date Comments Med Refill 10/06/2024 Encounter Details Date Type Department Care Team ([facility] st Contact Info) Description 10/06/2024 Refill [facility] MEDICINE 230 [place] [address] 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 RN Social History Tobacco Use [...] Description 12/08/2024 9:15 AM EDT Clinical Support [facility] MEDICINE [address] [place] [address] 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 RN 12/28/2024 2:00 PM EDT Office Visit [facility] MED[facility]INE [address] [place] [address] Galo Fang MD [address] [place] [address] documented as of this encounter Visit Diagnoses Not on filedocumented in this encounter Additional Health Concerns Assessment Noted Time PHQ-9 Depression Total Score: 0 05/26/20 24 9:56 AM EDT documented as of this encounter Care Teams Cpr Instructor Relationship Specialty Start Date End Date Galo Fang MD [address] [place] [address] PCP - General Internal Medicine 04/04/14 documented as of this encounter
--- OUTSIDE RECORDS SUMMARY | 2024-10-27 14:19 | XMS_ITS | Encounter Summary ---
Author Organization [facility] [facility] Address [address] [place] [address] 7t [place] [address] Care Team Providers Care Pot Fluxer Name Role Phone Galo Fang MD Primary Care Provide r Reason for Visit * Reason Comments Med Refill Encounter Details Date Type Department Care Team (Late Contact Info) Description 04/27/2023 Refill [facility] MEDICINE [address] [place] [address] [phone] Carroll Roberts MD [address] [place] [address] [phone] Uncomplicated opioid dependence (CMS/HCC) Social History Tobacco [...] 12/08/2024 9:15 AM EDT Clinical Support [facility] MEDICINE [address] [place] [address] [phone] 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 RN 12/28/2024 2:00 PM EDT Office Visit [facility] MEDICINE [address] [place] [address] [phone] Galo Fang MD [address] [place] [address] [phone] documented as of this encounter Visit Diagnoses Diagnosis Uncomplicated opioid dependence (CMS/HCC) documented in this encounter Care Teams Pot Fluxer Relationship Specialty Start Date End Date Galo Fang MD 230 [place] [address] PCP - General Internal Medicine 04/04/14 documented as of this encounter
--- OUTSIDE RECORDS SUMMARY | 2024-10-27 14:19 | XMS_ITS | Encounter Summary ---
Author Organization [employer] Address 75 [facility] 7t [place] [address] Care Team Providers Care Metal Grader Name Role Phone Galo Fang MD Primary Care Provide r Reason for Visit * Reason Comments Med Refill Encounter Details Date Type Department Care Team ([facility] st Contact Info) Description 10/10/2024 Refill [facility] MEDICINE 230 [place], [place] [phone] Galo Fang MD 230 [place], [place] [phone] Social History Tobacco Use Types Packs/Day Years [...] Description 12/08/2024 9:15 AM EDT Clinical Support [facility] MEDICINE [address] [place] [phone] 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 RN 12/28/2024 2:00 PM EDT Office Visit [facility] MEDICINE [address] [place] [address] Galo Fang MD [address] [place] [address] 24[address] documented as of this encounter Visit Diagnoses Not on filedocumented in this encounter Additional Health Concerns Assessment Noted Time PHQ-9 Depression Total Score: 0 05/26/20 24 9:56 AM EDT documented as of this encounter Care Teams Metal Grader Relationship Specialty Start Date End Date Galo Fang MD [address] [place] [address] PCP - General Internal Medicine 04/04/14 documented as of this encounter
--- OUTSIDE RECORDS SUMMARY | 2024-10-27 14:20 | XMS_ITS | Encounter Summary ---
Author Organization [employer] Address 75 [facility] 7t [place] [address] Care Team Providers Care Mechanical Drafter Name Role Phone Galo Fang MD Primary Care Provide r Reason for Visit * Reason Comments Med Refill Encounter Details Date Type Department Care Team ([facility] st Contact Info) Description 10/24/2024 Refill [facility] MEDICINE 230 [place], [place] [phone] Galo Fang MD 230 [place], [place] [phone] Social History Tobacco Use Types Packs/Day Years [...] 12/08/2024 9:15 AM EDT Clinical Support [facility] MEDICINE [address] [place] [phone] 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 RN 12/28/2024 2:00 PM EDT Office Visit [facility] MEDICINE [address] [place] [address] 24514 Galo Fang MD [address] [place] [address] 53296 documented as of this encounter Visit Diagnoses Not on filedocumented in this encounter Additional Health Concerns Assessment Noted Time PHQ-9 Depression Total Score: 0 05/26/20 24 9:56 AM EDT documented as of this encounter Care Teams Mechanical Drafter Relationship Specialty Start Date End Date Galo Fang MD [address] [place] [address] PCP - General Internal Medicine 04/04/14 documented as of this encounter
--- OUTSIDE RECORDS SUMMARY | 2024-10-27 14:20 | XMS_ITS | Encounter Summary ---
Author Organization [employer] Address [address] [facility] [address] 7t [place] [address] Care Team Providers Care Metal Furniture Assembler Name Role Phone Galo Fang MD Primary Care Provide r Reason for Visit * Reason Comments Med Refill Encounter Details Date Type Department Care Team ([facility] st Contact Info) Description 04/20/2024 Refill [facility] [address] [place] [address] [phone] Karuna Covington MD 230 [place], [place] [phone] Foreign body sensation, right eye Social History [...] Description 12/08/2024 9:15 AM EDT Clinical Support [facility] MEDICINE [address] [place] [phone] 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 RN 12/28/2024 2:00 PM EDT Office Visit [facility] MEDICINE [address] [place] [address] Galo Fang MD [address] [place] [address] 9[address]67 documented as of this encounter Visit Diagnoses Diagnosis Foreign body sensation, right eye documented in this encounter Additional Health Concerns Assessment Noted Time PHQ-9 Depression Total Score: 0 07/01/20 23 1:10 PM EST documented as of this encounter Care Teams Metal Furniture Assembler Relationship Specialty Start Date End Date Galo Fang MD [address] [place] [address] 15204 PCP - General Internal Medicine 04/04/14 documented as of this encounter
--- OUTSIDE RECORDS SUMMARY | 2024-10-27 14:20 | XMS_ITS | Encounter Summary ---
Author Organization [employer] Address 75 [facility] 7t [place] [address] Care Team Providers Care Brim Curler Name Role Phone Galo Fang MD Primary Care Provide r Reason for Visit * Reason Comments Med Refill Encounter Details Date Type Department Care Team ([facility] st Contact Info) Description 01/28/2024 Refill [facility] MEDICINE 230 [place], [place] [phone] Carroll Roberts MD 230 [place], [place] [phone] Uncomplicated opioid dependence (CMS/HCC) Social History Tobacco [...] 12/08/2024 9:15 AM EDT Clinical Support [facility] MEDICINE [address] [place] [address] 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, GULSHAN 12/28/2024 2:00 PM EDT Office Visit [facility] MEDICINE [address] [place] [address] Galo Fang MD [address] [place] [address] documented as of this encounter Visit Diagnoses Diagnosis Uncomplicated opioid dependence (CMS/HCC) documented in this encounter Additional Health Concerns Assessment Noted Time PHQ-9 Depression Total Score: 0 07/01/20 23 1:10 PM EST documented as of this encounter Care Teams Brim Curler Relationship Specialty Start Date End Date Galo Fang MD [address] [place] [address] PCP - General Internal Medicine 04/04/14 documented as of this encounter
--- OUTSIDE RECORDS SUMMARY | 2024-10-27 14:20 | XMS_ITS | Encounter Summary ---
Author Organization [facility] Address [address] [place] [address] 7t [place] [address] Care Team Providers Care Respiratory Therapy Instructor Name Role Phone Galo Fang MD Primary Care Provide r Encounter Details Date Type Department Care Team (Late st Contact Info) Description 06/14/2023 Abstract [facility] MEDICINE [address] [place] [phone] Galo Fang MD [address] [place] [address] [phone] Social History Tobacco Use Types Packs/Day Years [...] Description 12/08/2024 9:15 AM EDT Clinical Support [facility] MEDICINE [address] [place] [address] [phone] 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, GULSHAN 12/28/2024 2:00 PM EDT Office Visit [facility] MEDICINE [address] [place] [address] [phone] Galo Fang MD [address] [place] [address] documented as of this encounter Procedures Procedure Name Priority Date/Time Associated Diagnosis Comments HM COLONOSCOPY Routine 07/29/2018 HM COLONOSCOPY Routine 03/16/2013 documented in this encounter Results * Hm Colonoscopy (07/29/2018) Colonoscopy Normal Normal us Historical Provider HEALTH MAINTENANCE Edited Result - Final * Hm Colonoscopy (03/16/2013) Colonoscopy Normal Normal Narrative Georgia Rubio - 03/16/2013 Recommended 10 year follow up us Historical Provider HEALTH MAINTENANCE Final Result documented in this encounter Visit Diagnoses Not on filedocumented in this encounter Care Teams Respiratory Therapy Instructor Relationship Specialty Start Date End Date Galo Fang MD [address] [place] [address] 8[address]82 PCP - General Internal Medicine 04/04/14 documented as of this encounter
--- OUTSIDE RECORDS SUMMARY | 2024-10-27 14:20 | XMS_ITS | Encounter Summary ---
Author Organization [employer] Address 75 [facility] 7t [place] [address] Care Team Providers Care Welder/Fabricator Name Role Phone Galo Fang MD Primary Care Provide r Reason for Visit * Reason Comments Med Refill Encounter Details Date Type Department Care Team ([facility] st Contact Info) Description 04/20/2024 Refill [facility] 230 [place], [place] [phone] Jocelyn Cruz FNP 230 [place] [address] Social History Tobacco Use Types Packs/Day Years [...] Description 12/08/2024 9:15 AM EDT Clinical Support [facility] MEDICINE [address] [place] [phone] 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 RN 12/28/2024 2:00 PM EDT Office Visit [facility] MEDICINE [address] [place] [address] Galo Fang MD [address] [place] [address] documented as of this encounter Visit Diagnoses Not on filedocumented in this encounter Additional Health Concerns Assessment Noted Time PHQ-9 Depression Total Score: 0 07/01/20 23 1:10 PM EST documented as of this encounter Care Teams Welder/Fabricator Relationship Specialty Start Date End Date Galo Fang MD [address] [place] [address]312 PCP - General Internal Medicine 04/04/14 documented as of this encounter
--- OUTSIDE RECORDS SUMMARY | 2024-10-27 14:20 | XMS_ITS | Encounter Summary ---
Author Organization [employer] Address 75 [facility] 7t [place] [address] Care Team Providers Care International Broadcast Music Librarian Name Role Phone Galo Fang MD Primary Care Provide r Reason for Visit * Reason Comments Med Refill Encounter Details Date Type Department Care Team ([facility] st Contact Info) Description 10/24/2024 Refill [facility] MEDICINE 230 [place], [place] [phone] Galo Fang MD 230 [place], [place] [phone] Chronic midline low back pain without sciatica Social History Tobacco Use Types Packs/Day Years [...] [facility] MEDICINE [address] [place] [address] 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 RN 12/28/2024 2:00 PM EDT Office Visit [facility] MEDICINE [address] [place] [address] Galo Fang MD [address] [place] [address] 7[address] documented as of this encounter Visit Diagnoses Diagnosis Chronic midline low back pain without sciatica documented in this encounter Additional Health Concerns Assessment Noted Time PHQ-9 Depression Total Score: 0 05/26/20 9:56 AM EDT documented as of this encounter Care Teams International Broadcast Music Librarian Relationship Specialty Start Date End Date Galo Fang MD [address] [place] [address] PCP - General Internal Medicine 04/04/14 documented as of this encounter
--- OUTSIDE RECORDS SUMMARY | 2024-10-27 14:20 | XMS_ITS | Encounter Summary ---
Author Organization [employer] [facility] Address [address] [place] [address] 7t [place] [address] Care Team Providers Care Asbestos Siding Installer Name Role Phone Galo Fang MD Primary Care Provide r Reason for Visit * Reason Comments Med Refill Encounter Details Date Type Department Care Team (Late Contact Info) Description 06/22/2023 Refill [facility] MEDICINE [address] [place] [address] [phone] Carroll Roberts MD [address] [place] [address] [phone] Uncomplicated opioid dependence (CMS/HCC) Social History Tobacco [...] Description 12/08/2024 9:15 AM EDT Clinical Support [facility] MEDICINE [address] [place] [address] [phone] 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 RN 12/28/2024 2:00 PM EDT Office Visit [facility] MEDICINE [address] [place] [address] [phone] Galo Fang MD [address] [place] [address] [phone] documented as of this encounter Visit Diagnoses Diagnosis Uncomplicated opioid dependence (CMS/HCC) documented in this encounter Care Teams Asbestos Siding Installer Relationship Specialty Start Date End Date Galo Fang MD 230 [place] [address] PCP - General Internal Medicine 04/04/14 documented as of this encounter
== END 2024-10-27 13:31 | disposition home or self-care (01) ==
LOC: HO.ENCR 12:44
PROVIDERS: PCP Internal Medicine; Visit Provider Physician Assistant Medical
DX: E11.40 Type 2 diabetes mellitus with diabetic neuropathy, unspecified (principal); Z79.4 Long term (current) use of insulin

== ENCOUNTER → 2024-10-27 12:44 | Outpatient (BNVA) | payer MEDICAID, SELFPAY | PROVIDERS: PCP Internal Medicine; Visit Provider Physician Assistant Medical | DX: E11.40 Type 2 diabetes mellitus with diabetic neuropathy, unspecified (principal); Z79.4 Long term (current) use of insulin; Z79.84 Long term (current) use of oral hypoglycemic drugs | CPT/HCPCS: 82947; 83036; 99212 ==

== ENCOUNTER 2025-01-18 08:25 | Outpatient (AMB) | payer MEDICAID, SELFPAY ==
--- OUTSIDE RECORDS SUMMARY | 2025-01-18 08:40 | XMS_ITS | Encounter Summary ---
Author Organization [employer] Address [address] [place] [address] 7t [place] [address] Care Team Providers Care Fine Arts Packer Name Role Phone Galo Fang MD Primary Care Provide r Reason for Visit * Reason Comments Med Refill Encounter Details Date Type Department Care Team ([facility] st Contact Info) Description 09/08/[address] [facility] MEDICINE 230 [place] [address] Carroll Roberts MD 230 [place], [place] [phone] Uncomplicated opioid dependence (CMS/HCC) Social History Tobacco [...] Care Team (Late st Contact Info) Description 03/13/2025 1:15 PM EDT Office Visit [facility] MEDICINE [address] [place] [address] Galo Fang MD [address] [place] [address] 03/30/2025 9:00 AM EDT Clinical Support [facility] MEDICINE [address] [place] [address] 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, GULSHAN documented as of this encounter Visit Diagnoses Diagnosis Uncomplicated opioid dependence (CMS/HCC) documented in this encounter Additional Health Concerns Assessment Noted Time PHQ-9 Depression Total Score: 0 05/26/20 24 9:56 AM EDT documented as of this encounter Care Teams Fine Arts Packer Relationship Specialty Start Date End Date Galo Fang MD [address] [place] [phone] PCP - General Internal Medicine 04/04/14 documented as of this encounter
[2025-01-18 08:49] VITALS: BP 120/80; PULSE 83; BMI 33.2
--- NOTE | 2025-01-18 08:49 | MHC.OFFVIS ---
Vital Signs 01/18/25 08:49 Height 5 ft 8 in Weight 218 lb 4.122 oz BMI 33.2 BP 120/80 Blood Pressure Location Lt brachial Position Sitting Pulse 83 Intake Visit Reasons: req only galilea sooner appt r/s 11/20/24 Intake Note: Follow-up feeling good Bark Scaler Required: Yes Bark Scaler Services: Bark Scaler Present Bark Scaler Name: bjorn Sebastine Allergies insulin glargine [From Tou[employer]-Sem[employer] Max U-300 SoloStar] Allergy (Intermediate, Verified 10/27/24 13:00) itching Medication List - Last Reconciled 01/18/25 by Jean Pierre Marie MD aspirin 81 mg PO DAILY baclofen mg PO blood sugar diagnostic (FreeStyle Lite Strips) 1 strip miscellaneous TID blood-glucose meter (FreeStyle Lite Meter kit) As directed buprenorphine-naloxone 8-2 mg (Suboxone) 1 film sublingual DAILY empagliflozin (Jardiance) 25 mg PO QAM 30 days flash glucose scanning reader (FreeStyle Yahaira 2 [place]) As directed flash glucose sensor (FreeStyle Yahaira 2 Sensor kit) USE DIRECTED EVERY 2 WEEKS glucose (Dex4 Glucose) 16 grams (4 x 4 gram) PO Q15M PRN 30 days MDD 16 tablets insulin degludec (Tresiba FlexTouch U-200 insulin) 76 units (0.38 mL) subcut BEDTIME insulin lispro 12 - 14 units (0.12 - 0.14 mL) subcut TID lancets (FreeStyle Lancets) As directed three time a day omeprazole 20 mg PO DAILY pen needle, diabetic (BD Ultra-Fine Gisella Pen Needle) As directed four times a day tirzepatide (Mounjaro) 7.5 mg subcut QWEEK valsartan 80 mg PO BID HPI Comments Details: Nemesio comes for follow-up. He requested an earlier appointment as he had couple of issues to discuss. History was obtained with help of machine try out setter in the room. Patient says that about 8 months ago carvedilol was stopped by him because of side effects with itching. Did discuss with his primary care physician but did not call us. He also wants medication for erectile dysfunction. He said he is currently not using CPAP therapy. He has not been able to lose weight but he said he can walk without any restriction. He has no symptoms of heart failure. Denies any worsening shortness of breath, orthopnea, PND, leg edema. No lightheadedness, syncope. No chest pain. COUNT INCLUDES THE [facility] Medical History Osteoporosis History of cardiomyopathy Prosthetic valve dysfunction BMI 39.0-39.9,adult Cardiomyopathy TAMARA (obstructive sleep apnea) Opioid dependence Hypogonadism Polyarthropathy Erectile dysfunction Nephrolithiasis Depression Esophageal reflux Arthritis Asthma Hyperlipidemia LDL goal <70 Obesity due to excess calories Essential hypertension Type 2 diabetes mellitus with diabetic neuropathy, unspecified Surgical History History of heart valve replacement Hx of umbilical hernia repair Family History Father Heart disease CVD (cardiovascular disease) Mother DM2 (diabetes mellitus, type 2) Social History Household Members: None Alcohol intake: current Alcohol intake frequency: does not drink Patient Tobacco Use Status: Former Tobacco user Current occupational status: disabled Review of Systems Const Denies chills, Denies fatigue, Denies fever(s), Denies frequent falls, Denies weakness, Denies weight gain and Denies weight loss ENT Denies dizziness Card Denies chest pain, Denies leg edema, Denies lightheadedness, Denies palpitations, Denies dyspnea, Denies dyspnea on exertion, Denies orthopnea and Denies other (loss of consciousness) Resp Denies cough, Denies dyspnea and Denies dyspnea on exertion GI Denies hematochezia and Denies change in stool character Musc Denies abnormal gait, Denies muscle weakness, Denies numbness, Denies radiating pain into limb and Denies tingling Neuro Denies abnormal gait, Denies dizziness, Denies frequent falls, Denies numbness, Denies tingling and Denies weakness Endo Denies fatigue and Denies palpitations Physical Exam Vital Signs: Last Vital Signs Pulse 83 01/18/25 08:49 BP 120/80 01/18/25 08:49 BMI result Body Mass Index 33.2 Const General: cooperative, healthy appearing, comfortable and no acute distress Orientation/consciousness: patient oriented x3 Neck Neck: Yes normal visual inspection Resp Effort & Inspection: normal respiratory effort Auscultation: clear to auscultation bilaterally, no crackles, no rales, no rhonchi and no wheezes Cardio Rate: regular rate Rhythm: regular rhythm Heart sounds: S1 normal heart sound present, S2 normal heart sound present, Murmur heart sound present systolic early and no rubs Neuro General: patient oriented x3 Extrem General: Yes normal to inspection, No no pedal edema and No calf tenderness Psych Appearance: grossly normal Mental Status: mental status grossly normal Speech and movement: Normal speech and movement present Assessment & Plan Assessment & Plan (1) Status post aortic valve replacement: Code(s): Z95.2 - Presence of prosthetic heart valve Category: Surgical Plan: Status post bioprosthetic aortic valve replacement for severe aortic stenosis with significant LV systolic dysfunction at that time and heart failure syndrome. Has done well since bioprosthetic valve replacement. Had no associated significant coronary disease. He has mildly increased gradient in the past related to patient prosthesis mismatch. Follow-up echocardiogram near future. Continue low-dose aspirin therapy. Continue SBE prophylaxis as per ACC/aha guidelines. (2) History of cardiomyopathy: Comment: Improved after aortic valve replacement with last LVEF of 50-55% Code(s): Z86.79 - Personal history of other diseases of the circulatory system Category: Medical Plan: Prior history of cardiomyopathy in the setting of severe aortic stenosis. This is normalized with neurohormonal modulation aortic valve replacement. At this point time he has no progressive symptoms at current point time. He also had started CPAP therapy which she is not using at this point time. He is currently off beta-fer due to side effects. He is currently on Diovan and Jardiance. Will follow-up echocardiogram near future. If he has persistent normal LV ejection fraction no change in therapy will be pursued. Encouraged to participate in regular physical activity and also weight loss program. (3) Enlarged thoracic aorta: Code(s): I77.89 - Other specified disorders of arteries and arterioles Category: Medical Plan: Mildly enlarged thoracic aorta, will follow up with echocardiogram near future. Continue aggressive blood pressure control which is currently well optimized. Will follow up in the clinic in 1 year's time, sooner p.r.n.. Thank you for allowing me to partake in his care Coding Level of Care Code Est Pt Level 4 (54027) Complex EM visit Add On G2211 Diagnoses Status post aortic valve replacement Z95.2 History of cardiomyopathy Z86.79 Enlarged thoracic aorta I77.89
== END 2025-01-18 09:12 | disposition home or self-care (01) ==
LOC: HO.HCS 08:26
PROVIDERS: PCP Internal Medicine; Visit Provider Internal Medicine Cardiovascular Disease
DX: Z95.2 Presence of prosthetic heart valve (principal); Z86.79 Personal history of other diseases of the circulatory system; I77.89 Other specified disorders of arteries and arterioles
CPT/HCPCS: 99214

== ENCOUNTER → 2025-01-18 08:25 | Outpatient (BNVA) | payer MEDICAID, SELFPAY | PROVIDERS: PCP Internal Medicine; Visit Provider Internal Medicine Cardiovascular Disease | DX: I77.89 Other specified disorders of arteries and arterioles (principal); Z86.79 Personal history of other diseases of the circulatory system; Z95.2 Presence of prosthetic heart valve | CPT/HCPCS: 99212 ==

== ENCOUNTER 2025-01-26 12:34 | Outpatient (AMB) | payer MEDICAID, SELFPAY ==
--- NOTE | 2025-01-26 13:00 | A.OFFVIS_ITS ---
Vital Signs 01/26/25 13:03 Height 5 ft 8 in Weight 220 lb 10.923 oz BMI 33.6 BP 110/62 Blood Pressure Location Rt brachial Position Sitting Pulse 76 Pulse Source Pulse Oximeter Pulse Oximetry (%) 98 Oxygen Delivery Method Room Air Intake Visit Reasons: Type II diabetes Intake Note: Patient present today to follow up on Type 2 Diabetes Mellitus. Last Diabetic Eye exam: August 2024 Last Podiatry Visit: Does not see a Pulper Operator Random Glucose: 176 mg/dl HgA1C:7.9% 01/26/2025 Manufacturing Technology Professor Required: Yes Manufacturing Technology Professor Language: Stores [employer]: Manufacturing Technology Professor Present Manufacturing Technology Professor Name: Burak [id number] Information Interpreted: non-clinical & clinical Accompanied by: Self / Same As Patient Allergies insulin glargine [From [employer] Max U-300 SoloStar] Allergy (Intermediate, Verified 01/26/25 13:03) itching HPI Comments Details: This is a 64-year-old male with type 2 diabetes diagnosed approximately 10 years ago who presents for management of type 2 diabetes. He has a past medical history of asthma, osteoporosis, coronary artery disease, hyperlipidemia and sleep apnea. Complications: Neuropathy and coronary artery disease. Past medications: Metformin-GI cramping Hemoglobin a1c is 7.9% today up from 6.6%. Reviewed Yahaira 2 CGM active 33% Average glucose 192 Glucose variability 15.5% Very high 3% High 63% Target range 34% 0% hypoglycemia There is not enough data to assess a 24 hour pattern. Current medications: Tresiba 76 units daily Lispro 12 before breakfast, 14 before lunch and dinner Mounjaro 5 mg weekly (patient was on 7.5 mg, but he reported increased GI side effects and was decreased) Jardiance 25 mg daily Denies hypoglycemia. Not on a stain for unknown reasons. LDL 106 with goal <70. I contacted his [facility] care provider's office, but we did not hear back. ROS: Constitutional: No unexplained weight loss, fever, chills, fatigue or night sweats. Eyes: No vision changes Respiratory: No shortness of breath Cardiovascular: No chest pain Gastrointestinal: No anorexia, nausea, vomiting or diarrhea. No abdominal pain Neurologic: No headache, dizziness, syncope, unilateral weakness, ataxia, numbness or tingling in the extremities. Skin: No rash or itching. Endocrine: No cold or heat intolerance. No polyuria or polydipsia. Physical exam: Constitutional: Alert, in no distress. Neck: Supple, Full range of motion. No lymphadenopathy. No palpable masses. Respiratory: Clear to auscultation. Cardiovascular: S1 S2 regular. Murmur present. Feet: Warm and well perfused. No clubbing, cyanosis or edema. Palpable DP pulses. Decreased vibratory sensation. Intact sensation to monofilament. No open wounds. [facility] Medical History Osteoporosis History of cardiomyopathy Prosthetic valve dysfunction BMI 39.0-39.9,adult Cardiomyopathy TAMARA (obstructive sleep apnea) Opioid dependence Hypogonadism Polyarthropathy Erectile dysfunction Nephrolithiasis Depression Esophageal reflux Arthritis Asthma Hyperlipidemia LDL goal <70 Obesity due to excess calories Essential hypertension Type 2 diabetes mellitus with diabetic neuropathy, unspecified Surgical History History of heart valve replacement Hx of umbilical hernia repair Family History Father Heart disease CVD (cardiovascular disease) Mother DM2 (diabetes mellitus, type 2) Social History Household Members: None Alcohol intake: current Alcohol intake frequency: does not drink Patient Tobacco Use Status: Former Tobacco user Current occupational status: disabled Physical Exam Vital Signs: Last Vital Signs Pulse 76 01/26/25 13:03 BP 110/62 01/26/25 13:03 Pulse Ox 98 01/26/25 13:03 Oxygen Delivery Method Room Air 01/26/25 13:03 BMI result Body Mass Index 33.6 Results AMB Hemoglobin A1c AMB Hemoglobin A1c 7.9 % Last Edit by VIVIANE Mendoza on 01/26/25 13:20 Results Reviewed Results Reviewed: Laboratory Last Values Glucose (Clinic) 176 mg/dL (60-115) H 01/26/25 13:11 Laboratory Tests 11/29/23 06/07/24 06/29/24 08:03 10:41 12:17 Creatinine 0.90 Estimated GFR > 60 Hgb A1c (Clinic) 7.3 H AST 21 ALT 17 Triglycerides Cholesterol LDL Cholesterol, Calc HDL Cholesterol TSH 1.24 Urine Creatinine 204.22 Urine Microalbumin 7.0 Microalb/Creat Ratio 7.7 09/15/24 10:15 Creatinine Estimated GFR Hgb A1c (Clinic) AST ALT Triglycerides 132 Cholesterol 173 LDL Cholesterol, Calc 106 H HDL Cholesterol 41 TSH Urine Creatinine Urine Microalbumin Microalb/Creat Ratio Assessment & Plan Assessment & Plan (1) Type 2 diabetes mellitus with diabetic neuropathy, unspecified: Code(s): E11.40 - Type 2 diabetes mellitus with diabetic neuropathy, unspecified Category: Medical Qualifiers: Diabetes mellitus detention insulin use: with detention use Qualified Code(s): E11.40 - Type 2 diabetes mellitus with diabetic neuropathy, unspecified; Z79.4 - terminal operator (current) use of insulin Plan In summary this is a 64-year-old male with uncontrolled type 2 diabetes and complications. Diabetic diet reviewed. Reviewed complications associated with uncontrolled diabetes. Reviewed options with the patient including switching Mounjaro to Ozempic, trial increase of Mounjaro again to 7.5 mg or increasing insulin. He would like to try increasing Mounjaro to 7.5 mg and monitoring for adverse GI effects. Current regimen: Tresiba 76 units daily Lispro 12 before breakfast, 14 before lunch and dinner Mounjaro 7.5 mg weekly Jardiance 25 mg daily Ordered labs. Yahaira 2 is being discontinued. Yahaira 3 plus ordered. The patient has a follow up with his primary care provider next month. Advised him to discuss statin. The office did not respond to let us know if he has had a prior intolerance or allergy. Patient is also due to follow up with Dr. Fletcher for osteoporosis. Follow up requested. Orders: Orders Lipid Panel Today E11.40 - Type 2 diabetes mellitus with diabetic neuropathy, unspecified, E78.5 - Hyperlipidemia, unspecified, Z79.4 - terminal operator (current) use of insulin Microalbumin, Random (w Creat) Today E11.40 - Type 2 diabetes mellitus with diabetic neuropathy, unspecified, E11.9 - Type 2 diabetes mellitus without complications, Z79.4 - nursing home (current) use of insulin AMB Hemoglobin A1c Today E11.40 - Type 2 diabetes mellitus with diabetic neuropathy, unspecified, Z79.4 - terminal operator (current) use of insulin TSH reflex Free T4 Today E11.40 - Type 2 diabetes mellitus with diabetic neuropathy, unspecified, Z79.4 - nursing home (current) use of insulin Alanine Aminotransferase Today E11.40 - Type 2 diabetes mellitus with diabetic neuropathy, unspecified, Z79.4 - nursing home (current) use of insulin Amylase Today E11.40 - Type 2 diabetes mellitus with diabetic neuropathy, unspecified, Z79.4 - nursing home (current) use of insulin Platelet Count Today E11.40 - Type 2 diabetes mellitus with diabetic neuropathy, unspecified, E11.9 - Type 2 diabetes mellitus without complications, Z79.4 - terminal operator (current) use of insulin Medications: New tirzepatide (Mounjaro) 7.5 mg (0.5 mL) subcut QWEEK 2 mL 3RF blood-glucose,research greenhouse supervisor,cont (FreeStyle Yahaira 3 [place]) Use daily to monitor blood glucose levels continuously. 1 ea 0RF blood-glucose sensor (FreeStyle Yahaira 3 Plus Sensor device) Apply 1 new sensor every 15 days as directed to monitor blood glucose continuously. 2 ea 11RF Discontinued flash glucose scanning reader (FreeStyle Yahaira 2 [place]) Discontinued Reason: Doctor's Order As directed 1 ea 0RF E11.40 - Type 2 diabetes mellitus with diabetic neuropathy, unspecified, Z79.4 - nursing home (current) use of insulin flash glucose sensor (FreeStyle Yahaira 2 Sensor kit) Discontinued Reason: Doctor's Order USE DIRECTED EVERY 2 WEEKS 2 kits 11RF E11.40 - Type 2 diabetes mellitus with diabetic neuropathy, unspecified, Z79.4 - nursing home (current) use of insulin Patient Instructions: Current medications: Tresiba 76 units daily Lispro 12 before breakfast, 14 before lunch and dinner Mounjaro 7.5 mg weekly Jardiance 25 mg daily Medicamentos actuales: Tresiba 76 unidades diarias Lispro 12 antes del desayuno, 14 antes del almuerzo y la chicken catcher Mounjaro 7.5 mg semanales Jardiance 25 mg diarios Coding Level of Care Code Est Pt Level 4 (22539) Complex EM visit Add On G2211 Diagnoses Type 2 diabetes mellitus with diabetic neuropathy, with long-term current use of insulin E11.40; Z79.4 Diabetes mellitus termite exterminator helper insulin use: with termite exterminator helper use
[2025-01-26 13:03] VITALS: BP 110/62; PULSE 76; O2SAT 98; BMI 33.6
--- OUTSIDE RECORDS SUMMARY | 2025-01-26 13:07 | XMS_ITS | Encounter Summary ---
Author Organization [employer] Address [address] [place] [address] [address] [place] [address] Care Team Providers Care Clip Wrapper Name Role Phone Galo Fang MD Primary Care Provide r Reason for Visit * Reason Comments Med Refill Encounter Details Date Type Department Care Team ([facility] st Contact Info) Description 09/08/2024 Refill [facility] [address] [place] [address] Carroll Roberts MD [address] [place], [place] [phone] Uncomplicated opioid dependence (CMS/HCC) Social History Tobacco [...] Description 03/13/2025 1:15 PM EDT Office Visit [facility] [address] [place] [phone] Galo Fang MD [address] [place] [phone] 03/30/2025 9:00 AM EDT Clinical Support [facility] [address] [place] [phone] 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, GULSHAN documented as of this encounter Visit Diagnoses Diagnosis Uncomplicated opioid dependence (CMS/HCC) documented in this encounter Additional Health Concerns Assessment Noted Time PHQ-9 Depression Total Score: 0 05/26/20 24 9:56 AM EDT documented as of this encounter Care Teams Clip Wrapper Relationship Specialty Start Date End Date Galo Fang MD [address] [place] [phone] PCP - General Internal Medicine 04/04/14 documented as of this encounter
[2025-01-26 13:15] LABS: Glucose, Whole Blood 176 mg/dL (60-115)
== END 2025-01-26 13:46 | disposition home or self-care (01) ==
LOC: HO.ENCR 12:35
PROVIDERS: PCP Internal Medicine; Visit Provider Physician Assistant Medical
DX: E11.40 Type 2 diabetes mellitus with diabetic neuropathy, unspecified (principal); Z79.4 Long term (current) use of insulin

== ENCOUNTER → 2025-01-26 12:34 | Outpatient (BNVA) | payer MEDICAID, SELFPAY | PROVIDERS: PCP Internal Medicine; Visit Provider Physician Assistant Medical | DX: E11.69 Type 2 diabetes mellitus with other specified complication (principal); E11.40 Type 2 diabetes mellitus with diabetic neuropathy, unspecified; Z79.4 Long term (current) use of insulin; M81.0 Age-related osteoporosis without current pathological fracture | CPT/HCPCS: 82947; 83036; 99212 ==

== ENCOUNTER 2025-02-28 09:29 | Outpatient (REF) | payer MEDICAID, SELFPAY ==
--- OUTSIDE RECORDS SUMMARY | 2025-02-28 09:55 | XMS_ITS | Patient Health Record ---
Author Organization [facility] Address [address] [place] [address] Care Team Providers Care Theater Company Producer Name Role Phone Ahmet Abbasi Unavailable [phone] Reason For Referral No Information Plan Of Treatment No Information
--- OUTSIDE RECORDS SUMMARY | 2025-02-28 09:55 | XMS_ITS | Encounter Summary ---
Author Organization [employer] Address [address] [place] [address] [address]t [place] [address] Care Team Providers Care Buckle Stapler Name Role Phone Galo Fang MD Primary Care Provide r Reason for Visit * Reason Comments Med Refill Encounter Details Date Type Department Care Team ([facility] st Contact Info) Description 09/08/2024 Refill [facility] [address] [place] [address] Carroll Roberts MD [address] [place] [address] Uncomplicated opioid dependence (CMS/HCC) Social History Tobacco [...] Description 03/13/2025 1:15 PM EDT Office Visit [facility] [address] [place] [phone] Galo Fang MD [address] [place] [phone] 03/30/2025 9:00 AM EDT Clinical Support [facility] [address] [place] [phone] 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, GULSHAN documented as of this encounter Visit Diagnoses Diagnosis Uncomplicated opioid dependence (CMS/HCC) documented in this encounter Additional Health Concerns Assessment Noted Time PHQ-9 Depression Total Score: 0 05/26/20 24 9:56 AM EDT documented as of this encounter Care Teams Buckle Stapler Relationship Specialty Start Date End Date Galo Fang MD [address] [place] [phone] PCP - General Internal Medicine 04/04/14 documented as of this encounter
[2025-02-28 10:11] LABS: Platelet Count 264 X10*3/uL (160-400)
[2025-02-28 11:16] LABS: Alanine Aminotransferase 28 U/L (0-40); Amylase 78 U/L (28-100); Cholesterol 164 mg/dL (<200); HDL Cholesterol 36 mg/dL (>40); Triglycerides 187 mg/dL (<150)
[2025-02-28 12:09] LABS: Microalbum/Creatinine Ratio Ur 12.4 ug/mg cr (<30)
== END 2025-02-28 09:30 | disposition home or self-care (01) ==
LOC: HO.LAB 09:29
PROVIDERS: PCP Internal Medicine; Visit Provider Physician Assistant Medical
DX: E11.40 Type 2 diabetes mellitus with diabetic neuropathy, unspecified (principal); Z79.4 Long term (current) use of insulin; E78.5 Hyperlipidemia, unspecified
CPT/HCPCS: 36415; 80061; 82043; 82150; 82570; 84443; 84460; 85049

== ENCOUNTER → 2025-03-16 12:54 | Outpatient (REF) | payer MEDICAID, SELFPAY ==
--- OUTSIDE RECORDS SUMMARY | 2025-03-16 12:57 | XMS_ITS | Patient Health Record ---
Author Organization [facility] Address [address] [place] [address] Care Team Providers Care Manager Golf Name Role Phone Ahmet Abbasi Unavailable [phone] Reason For Referral No Information Plan Of Treatment No Information
--- OUTSIDE RECORDS SUMMARY | 2025-03-16 12:57 | XMS_ITS | Encounter Summary ---
Author Organization [employer] Address [address] [facility] [address] [place] [address] Care Team Providers Care Social Staff Worker Name Role Phone Galo Fang MD Primary Care Provide r Reason for Visit * Reason Comments Med Refill Encounter Details Date Type Department Care Team ([facility] st Contact Info) Description 09/08/2024 Refill [facility] [address] [place] [address] Carroll Roberts MD [address] [place], [place] [phone] Uncomplicated opioid dependence (CMS/HCC) Social History Tobacco [...] Care Team (Late st Contact Info) Description 03/30/2025 9:00 AM EDT Clinical Support [facility] [address] [place] [address] 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, GULSHAN documented as of this encounter Visit Diagnoses Diagnosis Uncomplicated opioid dependence (CMS/HCC) documented in this encounter Additional Health Concerns Assessment Noted Time PHQ-9 Depression Total Score: 0 05/26/20 24 9:56 AM EDT documented as of this encounter Care Teams Social Staff Worker Relationship Specialty Start Date End Date Galo Fang MD [address] [place] [address] PCP - General Internal Medicine 04/04/14 documented as of this encounter
--- NOTE | 2025-03-16 12:58 | CA_ITS ---
Transthoracic Echocardiogram Patient (Last, First, Middle): Nemesio Brown, Gender: Male Date of : 1960 Age: 64 Procedure Date: 03/16/2025 Procedure Type: Transthoracic Echocardiogram Location: OP Height: 170.18 cm Weight: 99.79 kg BSA: 2.11 m2 Heart Rate: bpm Transport Operations Inspector: CLAYTON Referring MD: Anastasiia Olson BROADCAST OPERATIONS ENGINEER-Angelica Blower Operator: Jean Pierre Marie MD Symptoms: s/p AVR Study Quality: Adequate ECG Rhythm: Sinus with extra beats Conclusions: - 1. Normal LV ejection fraction with 60- 65% with pseudonormal filling pattern 2. Moderately dilated left atrium 3. Stenosis of bioprosthetic aortic valve min mean gradient of 21 mm Hg 4. Normal RV systolic pressure 5. Mildly dilated ascending aorta 6. No gross pericardial effusion Findings Left Ventricle Normal left ventricular size, thickness, and systolic function. The visually estimated ejection fraction is between 60-65%. Spectral Doppler is indicative of a pseudonormal filling pattern. E/E prime ratio is between 8 and 15 consistent with indeterminate filling pressures. Right Ventricle Normal right ventricular cavity size and systolic function. Atria The left atrium is moderately dilated. There is no evidence of interatrial shunt. The right atrium is normal in size. Aortic Valve A bioprosthetic aortic valve is present. The prosthetic aortic valve appears to be functioning abnormally. Echo findings are consistent with stenosis of the aortic valve prosthesis. The aortic valve was not well visualized. The mean gradient is 21 mmHg. Mitral Valve The mitral valve was not well visualized. There is trace mitral valve regurgitation. There is no mitral valve stenosis. Pulmonic Valve The pulmonic valve was not well visualized. Tricuspid Valve Likely normal tricuspid valve structure and function. There is trace tricuspid valve regurgitation. The right ventricular systolic pressure is normal. Normal right atrial pressure. There is no evidence of pulmonary hypertension. Great Vessels The pulmonary artery was not well visualized. There is mild dilatation of the ascending aorta measuring 4.00 cm. Venous The inferior vena cava is normal in size and collapses greater than 50% with inspiration. Pericardium/Pleural There is no evidence of pericardial effusion. Prior Study Comparison Changes noted compared to prior study dated: 05/12/2023. there is stenosis with a mean gradient of 22 mm Hg across the bioprosthetic aortic valve noted Measurements 2D Linear Measurements IVSd: 1.04 0.6-0.9/0.6-1.0 cm LVIDd: 5.37 3.9-5.3/4.2-5.9 cm LVIDd Index: 2.55 2.4-3.2/2.2-3.1 cm/m2 LVIDs: 3.62 2.0-3.6 cm LVPWd: 1.01 0.7-1.1 cm LA Diam: 3.70 2.7-3.8/3.0-4.0 cm LAIDs Index: 1.75 1.5-2.3 cm/m2 LV Mass: 263.81 67-162/88-224 g LV Mass Index: 125.03 43-95/49-115 g/m2 LVOT Diam: 2.10 3.0+(-)1.3 cm Mitral Valve MV Pk E: 0.88 MV PK A: 0.81 MV Decel Time: 295.00 E/A: 1.10 E'Lateral: 7.29 E'Medial: 4.35 E/E' Med: 20.20 E/E' Lat: 12.00 PHT: 86.00 MVA PHT: 2.56 Decel [place]: 2.98 Aortic Valve AoV Pk Eugenio: 3.24 AoV Mn Eugenio: 2.10 AoV VTI: 0.83 AoV Pk Grad: 42.00 Aov Mn Grad: 21.00 JOVON Cont.VTI: 0.76 LVOT LVOT Pk Eugenio: 0.78 LVOT Mn Eugenio: 0.54 LVOT VTI: 0.18 LVOT Pk Grad: 2.00 LVOT Mn Grad: 1.00 LVOT Diam: 2.10 LVOT Area: 3.46 Diastolic Function MV Pk E: 0.88 MV Pk A: 0.81 E/A: 1.10 E'Medial: 4.35 E/E' Med: 20.20 E' Laterial: 7.29 E/E' Lat: 12.00 Right Ventricle TAPSE (mm): 23.60 TVS' Eugenio: 8.70 Tricuspid Valve TR Pk Eugenio: 2.35 TR Pk Grad: 22.00 RA Press: 3.00 RVSP: 25.00 Great Vessels Aorta Sinus of Valsalva: 2.80 2.0-3.5 cm Ao Asc: 4.00 2.1-3.4 cm Pulmonary Valve PV Pk Eugenio: 1.18 Peak PV Grad: 6.00 Updated in Other Vendor System with Status of Final Jean Pierre Marie MD electronically signed on 03/17/2025 12:05:01 PM with status of Final
== END ==
LOC: HO.CARD 12:54
PROVIDERS: PCP Internal Medicine; Visit Provider Internal Medicine Cardiovascular Disease
DX: T82.09XA Other mechanical complication of heart valve prosthesis, initial encounter (principal); I77.89 Other specified disorders of arteries and arterioles; Z86.79 Personal history of other diseases of the circulatory system
CPT/HCPCS: 93306

== ENCOUNTER → 2025-03-16 12:58 | Outpatient (BNV) | payer MEDICAID, SELFPAY | PROVIDERS: PCP Internal Medicine; Visit Provider Internal Medicine Cardiovascular Disease | DX: T82.857A Stenosis of other cardiac prosthetic devices, implants and grafts, initial encounter (principal); I51.89 Other ill-defined heart diseases | CPT/HCPCS: 93306 ==

== ENCOUNTER 2025-03-18 08:27 | Emergency (ER) | payer MEDICAID, SELFPAY ==
[2025-03-18] VITALS (7 sets, daily range): BP systolic 126–143; BP diastolic 50–73; PULSE 28–56; RESP 12–18; TEMP 36.3–36.9; O2SAT 97–98; BMI 34.5
--- NOTE | ~2025-03-18 | CT_ITS ---
CLINICAL HISTORY: r o dissection CT angiography chest, abdomen and pelvis with contrast. 3-D postprocessing. Comparison: None provided Findings: There is mild ectasia of the ascending thoracic aorta. The patient is status post aortic valve replacement. There is no evidence of aortic dissection. There are yfnq-zj-sybfcbgt coronary artery calcifications. There is a small hiatal hernia. There is reflux of contrast into the IVC and hepatic veins suggesting right heart dysfunction. There is no evidence of pulmonary embolism. There is interlobular septal thickening suggestive of interstitial edema. There are small bilateral pleural effusions. The liver, gallbladder and the rest of the solid organs are unremarkable. No bowel obstruction, pneumoperitoneum, or pneumatosis. The GI tract is otherwise only significant for colonic diverticulosis. There is no evidence of diverticulitis. The bones are intact. IMPRESSION: 1. No systemic arterial aneurysm or dissection. 2. No acute pulmonary embolus. 3. Interstitial edema with small bilateral pleural effusions. Status post aortic valve replacement. This document has been electronically signed by: Les Beltran MD on 03/18/2025 11:23:04
--- NOTE | ~2025-03-18 | CT_ITS ---
CLINICAL HISTORY: r o dissection CT angiography chest, abdomen and pelvis with contrast. 3-D postprocessing. Comparison: None provided Findings: There is mild ectasia of the ascending thoracic aorta. The patient is status post aortic valve replacement. There is no evidence of aortic dissection. There are agii-qy-ndzirnfk coronary artery calcifications. There is a small hiatal hernia. There is reflux of contrast into the IVC and hepatic veins suggesting right heart dysfunction. There is no evidence of pulmonary embolism. There is interlobular septal thickening suggestive of interstitial edema. There are small bilateral pleural effusions. The liver, gallbladder and the rest of the solid organs are unremarkable. No bowel obstruction, pneumoperitoneum, or pneumatosis. The GI tract is otherwise only significant for colonic diverticulosis. There is no evidence of diverticulitis. The bones are intact. IMPRESSION: 1. No systemic arterial aneurysm or dissection. 2. No acute pulmonary embolus. 3. Interstitial edema with small bilateral pleural effusions. Status post aortic valve replacement. This document has been electronically signed by: Les Beltran MD on 03/18/2025 11:23:33
--- NOTE | 2025-03-18 08:38 | ED_ITS ---
HPI - Abdominal Pain General Chief Complaint: Abdominal Pain Stated Complaint: SOB, ABD pain, bloating Time Seen by Provider: 03/18/25 08:38 Source: patient, EMS and employee representative (cape verdean) Mode of arrival: EMS Limitations: language barrier (cape verdean) History of Present Illness ED Provider: ELISE MCCARTNEY PA-C HPI narrative: 64 year old Ivorian speaking male with pmhx significant for cardiomyopathy s/p aortic valve replacement, enlarged thoracic aorta, TAMARA, asthma, HTN, HLD, T2DM presents to the ED today for evaluation of increasing abdominal pain x2-3 days. Pain is located to epigastrum and wraps around to back bilaterally. Additionally reports dyspnea on exertion x 3 days. Admits to waking up with a dry throat and cough productive of cream colored sputum. Denies any increased swelling to LEs. Reports taking a daily aspirin. He is not on any AC. Reports history of constipation, recent difficulty passing BMs. Was able to pass a BM yesterday after taking an OTC laxative. Denies melena, hematochezia, BRBPR. Related Data Home Medications ?Medication ?Instructions ?Recorded ?Confirmed omeprazole 20 mg capsule,delayed 20 mg PO DAILY 01/18/25 release aspirin 81 mg tablet,delayed 81 mg PO DAILY 05/15/24 0 01/18/25 release baclofen 10 mg tablet mg PO 05/15/24 01/18/25 buprenorphine 8 mg-naloxone 2 mg 1 film sublingual LJ LY 05/15/24 01/18/25 sublingual film (Suboxone) Previous Rx's ?Medication ?Instructions ?Recorded blood-glucose meter (FreeStyle #1 ea 07/19/20 Lite Meter kit) lancets 28 gauge (FreeStyle #100 ea 07/31/21 Lancets) pen needle, diabetic 32 gauge x #125 ea 10/28/21 (BD Ultra-Fine Gisella Pen Needle) blood sugar diagnostic (FreeStyle 1 strip miscellaneou s TID #100 11/05/22 Lite Strips) strips glucose 4 gram chewable tablet 16 g (4 x 4 gram) PO Q1 5M PRN 06/29/24 (Dex4 Glucose) hypoglycemia 30 days #30 tab s insulin degludec 200 unit/mL (3 76 unit (0.38 mL) subc ut BEDTIME 03/14/25 mL) subcutaneous pen (Tresiba #12 mL FlexTouch U-200 insulin) insulin lispro 100 unit/mL 12 - 14 unit (0.12 - 0.14 m L) 10/27/24 subcutaneous pen subcut TID #15 mL valsartan 80 mg tablet 80 mg PO BID #180 tabs 11/06 blood-glucose sensor (FreeStyle #2 ea 01/26/25 Yahaira 3 Plus Sensor device) blood-glucose,strip machine operator,cont #1 ea 01/26/25 (FreeStyle Yahaira 3 [place]) tirzepatide 7.5 mg/0.5 mL 7.5 mg (0.5 mL) subcut QWEEK #2 mL 01/26/25 subcutaneous pen injector (Mounjaro) empagliflozin 25 mg tablet 25 mg PO QAM 30 days #30 ta bs 02/15/25 (Jardiance) Allergies Allergy/AdvReac Type Severity Reaction Status Date / Time insulin glargine (From Allergy Intermediate itching Verified 03/18/25 08:35 Toujeo Max U-300 SoloStar) Review of Systems Review of Systems Yes all other systems are reviewed and are negative [facility] Past Medical History Attestation statement: The following information was validated with the patient. Source: old records reviewed and nursing notes reviewed Medical History Osteoporosis History of cardiomyopathy Prosthetic valve dysfunction BMI 39.0-39.9,adult Cardiomyopathy TAMARA (obstructive sleep apnea) Opioid dependence Hypogonadism Polyarthropathy Erectile dysfunction Nephrolithiasis Depression Esophageal reflux Arthritis Asthma Hyperlipidemia LDL goal <70 Obesity due to excess calories Essential hypertension Type 2 diabetes mellitus with diabetic neuropathy, unspecified Surgical History History of heart valve replacement Hx of umbilical hernia repair Family History Family History Father Heart disease CVD (cardiovascular disease) Mother DM2 (diabetes mellitus, type 2) Social History Social History Household Members: None Unable to assess alcohol history related to: Unknown Alcohol intake: current Alcohol intake frequency: does not drink Patient Tobacco Use Status: Former Tobacco user Advance Directives: No Advance Directives Information Provided: Yes Do you have a plan to hurt others: No Plan Current occupational status: disabled Physical Exam ED Vital Signs: Vital Signs - 24 hr 03/18/25 08:33 03/18/25 08:42 03/18/25 09:36 Temperature 97.3 F 98.3 F 98.4 F Pulse Rate 53 56 49 L Respiratory Rate 18 16 12 Blood Pressure 134/73 126/50 L 129/52 L Pulse Oximetry 97 98 97 Oxygen Delivery Method Room Air Room Air 03/18/25 10:23 03/18/25 10:24 03/18/25 12:19 Temperature 98.2 F Pulse Rate 28 L 50 42 L Respiratory Rate 12 17 Blood Pressure 143/53 H 142/56 H Pulse Oximetry 98 98 Oxygen Delivery Method Room Air Room Air BMI result Body Mass Index 34.5 vital signs stable General: generally well appearing, NAD. Skin: Warm, dry, intact. No rashes or lesions. Head: Normocephalic, atraumatic. EENT: Hearing is intact b/l. Conjunctiva clear. Sclera is anicteric. PERRLA. EOM intact. Moist mucous membranes.? Neck: Supple without LAD Cardiac: Chest wall symmetric. RRR. No JVD. Lungs: Normal respiratory effort without accessory muscle use. lung sounds diminished, no adventitious breath sounds. Abdomen: Obese abdomen, soft, nondistended, mildly tender to palpation over epigastric region without rebound or guarding. active bs x4. Back: No midline spinous or paraspinal tenderness. No step off deformity. Ext: Upper and lower extremities atraumatic, without tenderness, deformity, swelling or erythema. 1+ pitting edema to b/l LEs. Neuro: AOx3. Normal speech. Ambulating with steady gait. Course Course Course Narrative: 0941 -- patient noted to anup down to 38 bpm while waiting for the cement gun operator for initial interview. code cart brought to bedside. EKG showing possible bigeminy wiht rate of 56 beats per minute. labs pending. My attending Dr. Archer at bedside - given hx of enlarged thoracic aorta, concern for dissection. CT angio chest/abdomen pelvis ordered. patient to be brought to scanner. 1047 -- Patient's HR noted to drop to 26 on monitor - called to bedside. repeat EKG showing 3rd degree heart block - certified master safe technician dr. marie - recommending pacing pads + [facility] transfer. Will hold on TCP as patient is not acutely symptomatic, HR 50's. call out to [facility]. 1135 -- CBC without leukocytosis or left shift. Normocytic anemia, H and H stable and above transfusion threshold. Chemistry without acute electrolyte abnormality requiring intervention. No NIKOLAY. Random glucose 148 without anion gap. Liver function and lipase WNL. Troponin elevated to 159.4 - no priors to compare to. BNP elevated to 387. CT angio chest, abdomen and pelvis does not demonstrate arterial aneurysm or dissection. No acute PE. There is interstitial edema with small bilateral pleural effusions, status post aortic valve replacement. > still awaiting call back from [facility] cardiology. 1241 -- Dr. Archer received call back from [facility] Cardiology. Accepted to CCU, accepting physician Dr. Salcedo. > discussed the importance of transfer with the patient and his family using inventory and pricing associate. They are agreeable. [place] arranging transport. He is stable at this time. Medical Decision Making Medical Decision Making [facility] Narrative: 64 year old Ivorian speaking male with pmhx significant for cardiomyopathy s/p aortic valve replacement, enlarged thoracic aorta, TAMARA, asthma, HTN, HLD, T2DM presents to the ED today for evaluation of increasing abdominal pain x2-3 days. Differential diagnosis includes anemia, electrolyte abnormality, arrhythmia, ACS, CHF, dissection, aortic aneurysm, pleural effusion, pneumonia, bronchitis Plan for labs, ekg, imaging, re-evaluation. Differential Diagnosis Differential Diagnoses: The differential diagnosis associated with the presentation includes as above. Admission/Observation Consideration of admission/observation: Escalation of care including admission/observation considered Consult Healthcare Provider Management of the patient was discussed with: Rim Roller Operator (Cardiology- Dr. Marie) Lab Data [facility] Lab Attestation statement: I reviewed the patient's lab results. as above. 03/18/25 09:29 03/18/25 09:29 Labs: Lab Results 03/18/25 Range/Units 09:29 WBC 7.4 (4.8-10.8) X10*3/uL RBC 4.10 L (4.60-5.80) X10*6/uL Hgb 11.5 L (14.0-18.0) g/dl Hct 34.8 L (42.0-52.0) % MCV 84.9 (80.0-98.0) fL MCH 28.0 (27.0-33.0) pg MCHC 33.0 (31.0-36.0) g/dl RDW 14.3 (11.0-16.0) % Plt Count 173 D (160-400) X10*3/uL MPV 9.6 (9.4-12.4) fL Immature Gran % (Auto) 0.3 (0.0-0.4) % Neut % (Auto) 68.5 (45-73) % Lymph % (Auto) 20.8 (20-40) % Webb % (Auto) 6.9 (2-11) % Eos % (Auto) 3.0 (0-4) % Baso % (Auto) 0.5 (0-2) % Lymph # (Auto) 1.5 (1.2-4.9) X10*3/uL Webb # (Auto) 0.5 (0.1-1.2) X10*3/uL Eos # (Auto) 0.2 (0.0-0.4) X10*3/uL Baso # (Auto) 0.0 (0.0-0.2) X10*3/uL Abs Immat Gran (auto) 0.02 (0.00-0.03) X10*3/uL Absolute Neuts (auto) 5.0 (2.0-8.3) x10*3/uL Absolute Nucleated RBC 0.000 (0.0-0.012) X10*3/uL Nucleated RBC % (auto) 0.0 (0.0-0.2) /100WBC Hold Blue Top SEE NOTE Sodium 136 (135-145) mmol/L Potassium 4.3 (3.3-5.1) mmol/L Chloride 102 (96-108) mmol/L Carbon Dioxide 27 (22-29) mmol/L Anion Gap 11 L (12-20) BUN 15 (9-16) mg/dL Creatinine 0.81 (0.5-1.4) mg/dL Estim Creat Clear Calc 103.8 Estimated GFR > 60 Random Glucose 148 H (60-115) mg/dL Calcium 8.5 D (8.4-10.2) mg/dL Magnesium 2.0 (1.6-2.6) mg/dL Total Bilirubin 0.5 (0.0-1.0) mg/dL AST 23 (5-37) U/L ALT 27 (0-40) U/L Alkaline Phosphatase 73 (39-117) U/L Troponin I High Sens 159.4 H* (<3.5-35.0) ng/L B-Natriuretic Peptide 387 H (<100) pg/mL Total Protein 6.8 (6.5-8.0) g/dL Albumin 4.1 (3.5-5.0) g/dL Lipase 10 (8-78) U/L Independent Interpretation I performed an independent interpretation of an: EKG and CT Scan Interpretation: EKG showing bigeminy, rate of 56 beats per minute, QT 496 Repeat EKG showing third-degree heart block, rate of 56 beats per minute QT prolonged to 510 CTA chest without PE or dissection CTA a/p without dissection Radiology Impression Discussion of test interpretation with radiology: I have reviewed the radiologist's reading. Radiologist Impression: Procedure(s): CT angio chest aorta Accession Number(s): [id number] cc: Galo Prajapati MD; Elise Mccartney~ Report Number: [id number]: Total DLP = 0.00 mGy-cm CLINICAL HISTORY: r o dissection CT angiography chest, abdomen and pelvis with contrast. 3-D postprocessing. Comparison: None provided Findings: There is mild ectasia of the ascending thoracic aorta. The patient is status post aortic valve replacement. There is no evidence of aortic dissection. There are uwck-ud-hyyqjbsm coronary artery calcifications. There is a small hiatal hernia. There is reflux of contrast into the IVC and hepatic veins suggesting right heart dysfunction. There is no evidence of pulmonary embolism. There is interlobular septal thickening suggestive of interstitial edema. There are small bilateral pleural effusions. The liver, gallbladder and the rest of the solid organs are unremarkable. No bowel obstruction, pneumoperitoneum, or pneumatosis. The GI tract is otherwise only significant for colonic diverticulosis. There is no evidence of diverticulitis. The bones are intact. IMPRESSION: 1. No systemic arterial aneurysm or dissection. 2. No acute pulmonary embolus. 3. Interstitial edema with small bilateral pleural effusions. Status post aortic valve replacement. This document has been electronically signed by: Les Beltran MD on 03/18/2025 11:23:33 Date of Service: 03/18/25 Procedure(s): CT angio abdomen pelvis Accession Number(s): [id number] cc: Galo Prajapati MD; Elise Mccartney~ Report Number: [id number]: Total DLP = 671.00 mGy-cm CLINICAL HISTORY: r o dissection CT angiography chest, abdomen and pelvis with contrast. 3-D postprocessing. Comparison: None provided Findings: There is mild ectasia of the ascending thoracic aorta. The patient is status post aortic valve replacement. There is no evidence of aortic dissection. There are ited-jl-zgwyqnac coronary artery calcifications. There is a small hiatal hernia. There is reflux of contrast into the IVC and hepatic veins suggesting right heart dysfunction. There is no evidence of pulmonary embolism. There is interlobular septal thickening suggestive of interstitial edema. There are small bilateral pleural effusions. The liver, gallbladder and the rest of the solid organs are unremarkable. No bowel obstruction, pneumoperitoneum, or pneumatosis. The GI tract is otherwise only significant for colonic diverticulosis. There is no evidence of diverticulitis. The bones are intact. IMPRESSION: 1. No systemic arterial aneurysm or dissection. 2. No acute pulmonary embolus. 3. Interstitial edema with small bilateral pleural effusions. Status post aortic valve replacement. This document has been electronically signed by: Les Beltran MD on 03/18/2025 11:23:04 Independent Historian Clinical information obtained from an independent historian. History obtained from or confirmed by: Spouse () External Record Review External record reviewed: Inpatient record Prescription Management I considered prescription management with: Pain Medication Chronic Conditions Patient?s care impacted by: Diabetes and Hypertension Social Determinants Patient?s care significantly limited by Social Determinants of Health including: Other Social Determinant of Health Medications Administered Discontinued Medications Generic Name Dose Route Start Last Admin Trade Name Freq PRN Reason Stop Dose Admin Iohexol 100 ml 03/18/25 10:08 03/18/25 10:09 Iohexol 350 Mg/Ml 100 Ml Infus..Btl IV 03/18/25 10:09 100 ml ONCE ONE Administration Critical Care Time Critical Care Time Critical Care Time: Yes Total Critical Care Time: 36 Attestation: Critical care time in the amount of 36 minutes has been provided to the patient in terms of direct patient care, frequent reevaluation, consultation with cardiology + [facility], review and interpretation of medical data and results, and management of potentially life-threatening conditions. This is all outside of any medical procedures. Discharge Plan Discharge Clinical Impression: Third degree heart block, CHF (congestive heart failure) Patient Disposition: [facility] Transfer Details: [facility] CCU - Dr. Salcedo Prescriptions: No Action (DME) lancets [FreeStyle Lancets] 28 gauge misc See Rx Instructions .ROUTE .MEDSUPPLY Qty: 100 11RF Rx Instructions: As directed three time a day (DME) pen needle, diabetic [BD Ultra-Fine Gisella Pen Needle] 32 gauge x 5/32 needle See Rx Instructions .ROUTE .MEDSUPPLY Qty: 125 11RF Rx Instructions: As directed four times a day FreeStyle Lite Strips Strip 1 strip miscellaneous TID Qty: 100 11RF valsartan 80 mg tablet 80 mg PO BID Qty: 180 3RF Jardiance 25 mg tablet 25 mg PO QAM 30 Days Qty: 30 4RF (DME) blood-glucose meter [FreeStyle Lite Meter] Kit See Rx Instructions .ROUTE .MEDSUPPLY Qty: 1 0RF Rx Instructions: As directed omeprazole 20 mg capsule,delayed release(DR/EC) 20 mg PO DAILY glucose [Dex4 Glucose] 4 gram tablet,chewable 16 g PO Q15M MDD 16 tablets PRN (Reason: hypoglycemia) 30 Days Qty: 30 3RF Rx Instructions: every 15 minutes until symptoms of low blood sugar are controlled buprenorphine-naloxone [Suboxone] 8-2 mg film 1 film sublingual DAILY aspirin 81 mg tablet,delayed release (DR/EC) 81 mg PO DAILY baclofen 10 mg tablet PO insulin lispro 100 unit/mL insulin pen 12 - 14 unit subcut TID Qty: 15 5RF Rx Instructions: use 15 minutes prior to meals insulin degludec [Tresiba FlexTouch U-200] 200 unit/mL (3 mL) insulin pen 76 unit subcut BEDTIME Qty: 12 5RF Mounjaro 7.5 mg/0.5 mL pen injector 7.5 mg subcut QWEEK Qty: 2 3RF (DME) FreeStyle Yahaira 3 [place] Misc See Rx Instructions .ROUTE .[employer] Chattr Qty: 1 0RF Rx Instructions: Use daily to monitor blood glucose levels continuously. (DME) FreeStyle Yahaira 3 Plus Sensor Device See Rx Instructions .ROUTE .[employer] Qty: 2 11RF Rx Instructions: Apply 1 new sensor every 15 days as directed to monitor blood glucose continuously. Print Language: Ivorian
--- NOTE | 2025-03-18 09:15 | ECG_ITS ---
Test Reason : WEI Blood Pressure : */* mmHG Vent. Rate : 56 BPM Atrial Rate : * BPM P-R Int : * ms QRS Dur : 94 ms QT Int : 510 ms P-R-T Axes : * 2 122 degrees QTcB Int : 492 ms Undetermined rhythm T wave abnormality, consider lateral ischemia Abnormal ECG When compared with ECG of 08-Dec-2018 17:15, Rhythm change Vent. rate has decreased by 27 bpm T wave inversion now evident in Lateral leads Referred By: Elise Mccartney Electronically Signed By: SERGIO WIGGINS
--- NOTE | 2025-03-18 09:33 | PC.NURSE ---
this RN noted patient to become anup in the 30's on the cardiac care unit nurse. patient was sitting up in bed alert and oriented w/ even and unlabored respirations. stat EKG was obtained, patient was placed on pacer pads w/ crash cart placed in the room. IV established, labs obtained and sent. patient endorses shortness of breath worse with exertion over the last few days and is having shortness of breath even at rest. chest/abdominal pain radiating into the back. does not appear in any distress currently.
[2025-03-18 09:34] LABS: MANUAL DIFF FLAG NO
[2025-03-18 09:35] LABS: Hematocrit 34.8 % (42.0-52.0); Hemoglobin 11.5 g/dl (14.0-18.0); Imm Gran Abs Auto 0.02 X10*3/uL (0.00-0.03); Imm Gran Pct Auto 0.3 % (0.0-0.4); Lymphocytes Absolute Auto 1.5 X10*3/uL (1.2-4.9); Mean Corpuscular HGB Conc 33.0 g/dl (31.0-36.0); Mean Corpuscular Hemoglobin 28.0 pg (27.0-33.0); Mean Corpuscular Volume 84.9 fL (80.0-98.0); NRBC Abs Auto 0.000 X10*3/uL (0.0-0.012); NRBC Pct Auto 0.0 /100WBC (0.0-0.2); Platelet Count 173 X10*3/uL (160-400); Red Blood Count 4.10 X10*6/uL (4.60-5.80); White Blood Count 7.4 X10*3/uL (4.8-10.8)
[2025-03-18 09:50] LABS: Alanine Aminotransferase 27 U/L (0-40); Albumin Level 4.1 g/dL (3.5-5.0); Alkaline Phosphatase 73 U/L (39-117); Anion Gap 11 (12-20); Aspartate Amino Transferase 23 U/L (5-37); Blood Urea Nitrogen 15 mg/dL (9-16); Calcium 8.5 mg/dL (8.4-10.2); Carbon Dioxide 27 mmol/L (22-29); Chloride 102 mmol/L (96-108); Creatinine Clr Calc Pharmacy 103.8; Estimated Glomerular Filt Rate > 60; Lipase 10 U/L (8-78); Magnesium 2.0 mg/dL (1.6-2.6); Potassium 4.3 mmol/L (3.3-5.1); Sodium 136 mmol/L (135-145); Total Protein 6.8 g/dL (6.5-8.0)
[2025-03-18] MEDS: iohexoL 350 MG/ML 100 ML INFUS..BTL IV (10:09)
--- NOTE | 2025-03-18 10:23 | PC.NURSE ---
Pt HR noted to be 28 on monitor. Upon entering room pt alert/awake. Speech clear and appropriate, Archer bedside, EKG orders placed.
[2025-03-18 10:32] LABS: Troponin-I High Sensitivity 159.4 ng/L (<3.5-35.0)
[2025-03-18 11:03] LABS: B Type Natriuretic Peptide 387 pg/mL (<100)
--- NOTE | 2025-03-18 12:49 | PC.NURSE ---
[facility] bed assigment [facility] 5 bed 4, RN to RN [phone] Dr Salcedo accepting,
--- NOTE | 2025-03-18 13:38 | PC.NURSE ---
Report given to EMS for pt to trasnport to [facility] MM[facility] bed 4, report called, spoke with RN Kamala to give verbal report.
== END 2025-03-18 13:41 | disposition short-term general hospital (02) ==
PROVIDERS: Physician Assistant Medical; Emergency Provider Emergency Medicine Emergency Medical Services; PCP Internal Medicine
DX: I44.2 Atrioventricular block, complete (principal); I50.9 Heart failure, unspecified; G47.33 Obstructive sleep apnea (adult) (pediatric); J45.909 Unspecified asthma, uncomplicated; E11.8 Type 2 diabetes mellitus with unspecified complications; E78.5 Hyperlipidemia, unspecified; R06.00 Dyspnea, unspecified; Z79.82 Long term (current) use of aspirin
CPT/HCPCS: 36415; 71275; 74174; 80053; 83690; 83735; 83880; 84484; 85025; 93005; 99285; 99291; Q9967

== ENCOUNTER → 2025-03-18 09:15 | Outpatient (BNV) | payer MEDICAID, SELFPAY | PROVIDERS: Emergency Provider Emergency Medicine Emergency Medical Services; PCP Internal Medicine; Visit Provider Internal Medicine | DX: R94.31 Abnormal electrocardiogram [ECG] [EKG] (principal); R00.1 Bradycardia, unspecified | CPT/HCPCS: 93010 ==

== ENCOUNTER → 2025-03-18 09:33 | Outpatient (BNV) | payer MEDICAID, SELFPAY | PROVIDERS: Emergency Provider Emergency Medicine Emergency Medical Services; PCP Internal Medicine; Visit Provider Radiology Diagnostic Radiology | DX: K57.30 Diverticulosis of large intestine without perforation or abscess without bleeding (principal); J90 Pleural effusion, not elsewhere classified | CPT/HCPCS: 71275; 74174 ==

== ENCOUNTER 2025-04-03 08:02 | Outpatient (AMB) | payer MEDICAID, SELFPAY ==
[2025-04-03 08:23] VITALS: BP 110/60; PULSE 68; BMI 34.5
--- NOTE | 2025-04-03 08:23 | MHC.OFFVIS ---
Vital Signs 04/03/25 08:23 Height 5 ft 7 in Weight 220 lb 7.396 oz BMI 34.5 BP 110/60 Blood Pressure Location Lt brachial Position Sitting Pulse 68 Pulse Source Monitor Intake Visit Reasons: r/s 04/02/25 [facility] followup Town Administrator Required: Yes Town Administrator Language: Appliance Tester Name: voice fowler [id number] Allergies insulin glargine (From [employer]JunctionuApplaud Max U-300 SoloStar) Allergy (Intermediate, Verified 04/03/25 08:27) itching Medication List - Last Reconciled 04/03/25 by ALEJANDRO Centeno aspirin 81 mg PO DAILY baclofen mg PO blood sugar diagnostic (FreeStyle Lite Strips) 1 strip miscellaneous TID blood-glucose meter (FreeStyle Lite Meter kit) As directed blood-glucose sensor (FreeStyle Yahaira 3 Plus Sensor device) Apply 1 new sensor every 15 days as directed to monitor blood glucose continuously. blood-glucose,leak patcher,cont (FreeStyle Yahaira 3 [place]) Use daily to monitor blood glucose levels continuously. buprenorphine-naloxone 8-2 mg (Suboxone) 1 film sublingual DAILY empagliflozin (Jardiance) 25 mg PO QAM 30 days glucose (Dex4 Glucose) 16 grams (4 x 4 gram) PO Q15M PRN 30 days MDD 16 tablets insulin degludec (Tresiba FlexTouch U-200 insulin) 76 units (0.38 mL) subcut BEDTIME insulin lispro 12 - 14 units (0.12 - 0.14 mL) subcut TID lancets (FreeStyle Lancets) As directed three time a day omeprazole 20 mg PO DAILY pen needle, diabetic (BD Ultra-Fine Gisella Pen Needle) As directed four times a day tirzepatide (Mounjaro) 7.5 mg (0.5 mL) subcut QWEEK valsartan 80 mg PO BID HPI HPI r/s 04/02/25 [facility] followup: Details: Nemesio is a 64-year-old male past medical history of hypertension, hyperlipidemia, diabetes, obesity, sleep apnea, not using CPAP, cardiomyopathy, bioprosthetic AVR who recently presented to [facility] with increased shortness of breath x3 days. He was found to have complete heart block on EKG with mildly elevated troponins. He was transferred to [facility] and underwent a dual-chamber pacemaker placement. He now presents for follow-up. Today he reports that he has been doing well since his hospital discharge. His breathing is improved overall. He has no concerning shortness of breath, no PND, orthopnea or edema. No chest discomfort at rest or with activity. No lightheadedness, presyncope, syncope, falls. Taking meds as directed. Has been doing only very light activities. Pacemaker site is feeling fine. Has monitor at his bedside. [facility] Medical History Osteoporosis History of cardiomyopathy Prosthetic valve dysfunction BMI 39.0-39.9,adult Cardiomyopathy TAMARA (obstructive sleep apnea) Opioid dependence Hypogonadism Polyarthropathy Erectile dysfunction Nephrolithiasis Depression Esophageal reflux Arthritis Asthma Hyperlipidemia LDL goal <70 Obesity due to excess calories Essential hypertension Type 2 diabetes mellitus with diabetic neuropathy, unspecified Surgical History History of heart valve replacement Hx of umbilical hernia repair Family History Father Heart disease CVD (cardiovascular disease) Mother DM2 (diabetes mellitus, type 2) Social History Household Members: None Unable to assess alcohol history related to: Unknown Alcohol intake: current Alcohol intake frequency: does not drink Patient Tobacco Use Status: Former Tobacco user Current occupational status: disabled Review of Systems Const All systems reviewed & are unremarkable except as noted in HPI and below ENT Denies dizziness Card Denies chest pain, Denies chest pain at rest, Denies chest pain with activity, Denies rapid heart rate, Denies pedal edema, Denies edema, Denies leg edema, Denies lightheadedness, Denies palpitations, Denies dyspnea, Denies dyspnea on exertion and Denies orthopnea Resp Denies cough, Denies dyspnea and Denies dyspnea on exertion GI Denies hematochezia and Denies change in stool character Musc Denies abnormal gait, Denies limited range of motion, Denies muscle cramps, Denies muscle weakness, Denies numbness, Denies radiating pain into limb, Denies stiffness and Denies tingling Neuro Denies abnormal gait, Denies dizziness, Denies numbness and Denies tingling Endo Denies palpitations Physical Exam Vital Signs: Last Vital Signs Pulse 68 04/03/25 08:23 BP 110/60 04/03/25 08:23 BMI result Body Mass Index 34.5 Const General: cooperative, healthy appearing, comfortable and no acute distress Orientation/consciousness: patient oriented x3 Neck Neck: Yes normal visual inspection Chest Other: pacemaker site left upper chest intact with skin glue. No ecchimosis, drainage or signs of infection Resp Effort & Inspection: normal respiratory effort Auscultation: clear to auscultation bilaterally, no crackles, no rales, no rhonchi and no wheezes Cardio Rate: regular rate Rhythm: regular rhythm Heart sounds: S1 normal heart sound present, S2 normal heart sound present, no murmurs and no rubs Neuro General: patient oriented x3 Extrem General: Yes normal to inspection, No no pedal edema and No calf tenderness Psych Appearance: grossly normal Mental Status: mental status grossly normal Speech and movement: Normal speech and movement present Office Procedures EKG Details: Today, read by me, atrial sensed, ventricular paced rhythm, rate 68, artifact V2 [id number], Complete Assessment & Plan Assessment & Plan (1) Third degree heart block: Code(s): I44.2 - Atrioventricular block, complete Category: Medical Plan: New finding third-degree heart block, transferred to [facility] and underwent Medtronic dual-chamber pacemaker placement. Pacemaker site healing well without any signs of infection. Site care reviewed with him. EKG today showing atrial sensed, ventricular paced rhythm. He was taken off carvedilol at time of hospital admission and remains off at this time. Can re-evaluate next visit. Will arrange for cardiology follow-up in 1 month with device interrogation. (2) Pacemaker: Comment: Medtronic dual-chamber pacemaker placement 03/20/2025 Code(s): Z95.0 - Presence of cardiac pacemaker Category: Medical Plan: As above (3) Status post aortic valve replacement: Code(s): Z95.2 - Presence of prosthetic heart valve Category: Surgical Plan: History of aortic stenosis, status post bioprosthetic AVR. Last echo done 03/16/2025 shows EF 60-65%, stenosis of bioprosthetic aortic valve with mean gradient 21 mmHg, ascending aorta 4.0 cm. Prior echo done 05/12/2023 had shown mean gradient 11 mmHg. Reviewed this finding with him. Will plan for repeat echocardiogram in 6 months. Cardinal signs of severe reviewed with him. (4) Prosthetic valve dysfunction: Comment: Secondary to patient prosthesis mismatch. Mean gradient of 21 mm Hg post surgical at baseline. Code(s): T82.09XA - Other mechanical complication of heart valve prosthesis, initial encounter Category: Medical Plan: As above (5) History of cardiomyopathy: Comment: Improved after aortic valve replacement with last LVEF of 50-55% Code(s): Z86.79 - Personal history of other diseases of the circulatory system Category: Medical Plan: History of cardiomyopathy. EF improved following aortic valve replacement and neurohormonal modulation. Most recent EF 60-65 %. No signs of heart failure on examination. Continue valsartan, Jardiance. He has CPAP says he is not able to wear it as it causes him congestion. Instructed to wear CPAP as much as tolerated. Can discuss further with his PCP/Pulmonary provider if needed. Blood pressure on low side today, 110/60. Will continue to hold carvedilol at present and readdress next visit. Continue physical activity as tolerated, weight loss recommended. (6) Essential hypertension: Code(s): I10 - Essential (primary) hypertension Category: Medical Plan: Blood pressure goal less than 130/80. Well controlled at this time. No medication changes have been made. (7) Hyperlipidemia LDL goal <70: Code(s): E78.5 - Hyperlipidemia, unspecified Category: Medical Plan: [place] LDL goal less than 70 in patient with diabetes. Is not on statin therapy for unclear reason. Labs done 11/29/2023 had shown LDL 96. Recommend use of statin as long as no clear contraindication. (8) Enlarged thoracic aorta: Code(s): I77.89 - Other specified disorders of arteries and arterioles Category: Medical Plan: Ascending aorta dilated at 4.0 cm on most recent echocardiogram. (9) Hospital discharge follow-up: Code(s): Z09 - Encounter for follow-up examination after completed treatment for conditions other than malignant neoplasm Category: Medical Plan: [facility] discharge notes reviewed Plan I discussed with the patient the importance of monitoring the pacemaker. We reviewed the need to avoid excessive movement of the left arm to ensure proper healing of the pacemaker site. The patient was informed about the continuation of valsartan and the importance of home blood pressure monitoring. We scheduled a follow-up appointment in one month to reassess the pacemaker function and blood pressure. Patient Instructions: - Monitor your pacemaker and blood pressure regularly. - Avoid excessive movement of your left arm to help the pacemaker site heal. - Continue taking valsartan as prescribed and check your blood pressure at home. - Return for a follow-up appointment in one month. Patient was informed and verbally consented to the use of an ambient scribe for clinic note documentation during this visit. Visit time spent on chart review, interview, assessment, orders, documentation. Coding Level of Care Code Est Pt Level 4 (42464) Complex EM visit Add On G2211 Diagnoses Third degree heart block I44.2 Pacemaker Z95.0 Status post aortic valve replacement Z95.2 Prosthetic valve dysfunction T82.09XA History of cardiomyopathy Z86.79 Essential hypertension I10 Hyperlipidemia LDL goal <70 E78.5 Enlarged thoracic aorta I77.89 Hospital discharge follow-up Z09 CPT Codes EKG - CPT: 00776-[id number], Complete ([id number]) Time Spent (min) 30
== END 2025-04-03 09:21 | disposition home or self-care (01) ==
LOC: HO.HCS 08:03
PROVIDERS: PCP Internal Medicine; Visit Provider Nurse Practitioner Family
DX: I44.2 Atrioventricular block, complete (principal); Z95.0 Presence of cardiac pacemaker; Z95.2 Presence of prosthetic heart valve; T82.09XA Other mechanical complication of heart valve prosthesis, initial encounter; Z86.79 Personal history of other diseases of the circulatory system; I10 Essential (primary) hypertension; E78.5 Hyperlipidemia, unspecified; I77.89 Other specified disorders of arteries and arterioles; Z09 Encounter for follow-up examination after completed treatment for conditions other than malignant neoplasm
CPT/HCPCS: 93010; 99214

== ENCOUNTER → 2025-04-03 08:02 | Outpatient (BNVA) | payer MEDICAID, SELFPAY | PROVIDERS: PCP Internal Medicine; Visit Provider Nurse Practitioner Family | DX: I44.2 Atrioventricular block, complete (principal); Z95.0 Presence of cardiac pacemaker; E78.5 Hyperlipidemia, unspecified; I77.89 Other specified disorders of arteries and arterioles; Z86.79 Personal history of other diseases of the circulatory system; T82.09XA Other mechanical complication of heart valve prosthesis, initial encounter; Z95.2 Presence of prosthetic heart valve | CPT/HCPCS: 93005; 99212 ==

== ENCOUNTER → 2025-04-13 23:59 | Outpatient (BNV) | payer MEDICAID, SELFPAY ==
--- NOTE | 2025-04-23 14:10 | MHC.OFFVIS ---
Intake Visit Reasons: REmote device check- Medtronic Allergies dulaglutide (From [employer]) Allergy (Mild, Verified 04/23/25 13:44) Diarrhea PFSH Medical History Osteoporosis History of cardiomyopathy Prosthetic valve dysfunction BMI 39.0-39.9,adult Cardiomyopathy TAMARA (obstructive sleep apnea) Opioid dependence Hypogonadism Polyarthropathy Erectile dysfunction Nephrolithiasis Depression Esophageal reflux Arthritis Asthma Hyperlipidemia LDL goal <70 Obesity due to excess calories Essential hypertension Type 2 diabetes mellitus with diabetic neuropathy, unspecified Surgical History History of heart valve replacement Hx of umbilical hernia repair Family History Father Heart disease CVD (cardiovascular disease) Mother DM2 (diabetes mellitus, type 2) Social History Household Members: None Unable to assess alcohol history related to: Unknown Alcohol intake: current Alcohol intake frequency: does not drink Patient Tobacco Use Status: Former Tobacco user Current occupational status: disabled Office Procedures Cardiac Device Check Cardiac Device Check Details: Remote pacemaker report generated 04/13/2025. Pacemaker function is adequate [id number] Cardiac Device Interrogation, pacemaker Procedure code (CPT) selection complete Assessment & Plan Assessment & Plan (1) Pacemaker: Comment: Medtronic dual-chamber pacemaker placement 03/20/2025 Code(s): Z95.0 - Presence of cardiac pacemaker Category: Medical Plan: See above Coding Level of Care Code Procedure Only Diagnoses Pacemaker Z95.0 CPT Codes Cardiac Device Check - Cardiac Device 12: [id number] Cardiac Device Interrogation, pacemaker ([id number])
== END ==
PROVIDERS: PCP Internal Medicine; Visit Provider Internal Medicine Cardiovascular Disease
DX: Z45.018 Encounter for adjustment and management of other part of cardiac pacemaker (principal)
CPT/HCPCS: 93294

== ENCOUNTER 2025-04-23 13:09 | Outpatient (AMB) | payer MEDICAID, SELFPAY ==
--- NOTE | 2025-04-23 13:39 | A.OFFVIS_ITS ---
Vital Signs 04/23/25 13:40 Height 5 ft 5 in Weight 220 lb 14.451 oz BMI 36.8 BP 110/62 Blood Pressure Location Lt brachial Position Sitting Pulse 87 Pulse Source Pulse Oximeter Intake Visit Reasons: 1 mth w/ Looking for Gamer[employer] ck Agriculture Professor Required: Yes Agriculture Professor Name: Odessa Palaofx [id number] Accompanied by: Self / Same As Patient Allergies dulaglutide (From [facility]) Allergy (Mild, Verified 04/23/25 13:44) Diarrhea Medication List - Last Reconciled 04/23/25 by ALEJANDRO Centeno aspirin 81 mg PO DAILY blood sugar diagnostic (FreeStyle Lite Strips) 1 strip miscellaneous TID blood-glucose meter (FreeStyle Lite Meter kit) As directed blood-glucose sensor (FreeStyle Yahaira 3 Plus Sensor device) Apply 1 new sensor every 15 days as directed to monitor blood glucose continuously. blood-glucose,coding and reimbursement specialist,cont (FreeStyle Yahaira 3 [place]) Use daily to monitor blood glucose levels continuously. buprenorphine-naloxone 8-2 mg (Suboxone) 1 film sublingual DAILY carvedilol 12.5 mg PO ONCE empagliflozin (Jardiance) 25 mg PO QAM 30 days insulin degludec (Tresiba FlexTouch U-200 insulin) 76 units (0.38 mL) subcut BEDTIME insulin lispro 12 - 14 units (0.12 - 0.14 mL) subcut TID lancets (FreeStyle Lancets) As directed three time a day omeprazole 20 mg PO DAILY pen needle, diabetic (BD Ultra-Fine Gisella Pen Needle) As directed four times a day tirzepatide (Mounjaro) 7.5 mg (0.5 mL) subcut QWEEK valsartan 80 mg PO BID HPI HPI 1 mth w/ Looking for Gamer[employer]onic ck: Details: Nemesio is a 64-year-old male past medical history of hypertension, hyperlipidemia, diabetes, obesity, sleep apnea, not using CPAP, cardiomyopathy, bioprosthetic AVR who recently presented to [facility] with increased shortness of breath x3 days. He was found to have complete heart block on EKG with mildly elevated troponins. He was transferred to [facility] and underwent a dual-chamber pacemaker placement. He now presents for device check and follow-up. Today he reports that he has been doing well since his last visit here in March. He no longer has shortness of breath, no PND, orthopnea or edema. No chest discomfort at rest or with activity. No lightheadedness, presyncope, syncope, falls. Taking meds as directed. Has been doing normal ADLs. Pacemaker site is feeling fine. Has monitor at his bedside. [facility] Medical History Osteoporosis History of cardiomyopathy Prosthetic valve dysfunction BMI 39.0-39.9,adult Cardiomyopathy TAMARA (obstructive sleep apnea) Opioid dependence Hypogonadism Polyarthropathy Erectile dysfunction Nephrolithiasis Depression Esophageal reflux Arthritis Asthma Hyperlipidemia LDL goal <70 Obesity due to excess calories Essential hypertension Type 2 diabetes mellitus with diabetic neuropathy, unspecified Surgical History History of heart valve replacement Hx of umbilical hernia repair Family History Father Heart disease CVD (cardiovascular disease) Mother DM2 (diabetes mellitus, type 2) Social History Household Members: None Unable to assess alcohol history related to: Unknown Alcohol intake: current Alcohol intake frequency: does not drink Patient Tobacco Use Status: Former Tobacco user Current occupational status: disabled Review of Systems Const All systems reviewed & are unremarkable except as noted in HPI and below Denies daytime sleepiness, Denies difficulty sleeping, Denies snoring, Denies stops breathing during sleep and Denies weakness Card Denies chest pain, Denies rapid heart rate, Denies irregular heart rhythm, Denies claudication, Denies leg edema, Denies lightheadedness, Denies palpitations, Denies dyspnea, Denies dyspnea on exertion, Denies orthopnea, Denies paroxysmal nocturnal dyspnea and Denies slow heart rate Resp Denies cough, Denies dyspnea, Denies dyspnea on exertion and Denies snoring GI Reports no additional complaints, Denies hematochezia, Denies change in stool character and Denies dyspepsia Musc Denies abnormal gait, Denies muscle weakness and Denies numbness Neuro Denies abnormal gait, Denies numbness and Denies weakness Endo Denies palpitations Physical Exam Vital Signs: Last Vital Signs Pulse 87 04/23/25 13:40 BP 110/62 04/23/25 13:40 BMI result Body Mass Index 36.8 Const General: cooperative, healthy appearing, comfortable and no acute distress Orientation/consciousness: patient oriented x3 Neck Neck: Yes normal visual inspection Chest Other: Pacer site benign Resp Effort & Inspection: normal respiratory effort Auscultation: clear to auscultation bilaterally, no crackles, no rales, no rhonchi and no wheezes Cardio Rate: regular rate Rhythm: regular rhythm Heart sounds: S1 normal heart sound present, S2 normal heart sound present, no murmurs and no rubs Neuro General: patient oriented x3 Extrem General: Yes normal to inspection Psych Appearance: grossly normal Mental Status: mental status grossly normal Speech and movement: Normal speech and movement present Office Procedures Cardiac Device Check Cardiac Device Check Details: Medtronic dual-chamber pacemaker interrogation today, DDD mode, low rate 60, battery 11.6 years, atrial threshold 0.5 volts at 0.4 milliseconds, RV threshold 0.75 volts at 0.4 milliseconds presenting rhythm a sense, V pace, AT/AF burden less than 0.1 %, 03/17/1980 AF on 03/31/2025. [id number] Cardiac Device Check, pacemaker dual lead Procedure code (CPT) selection complete Assessment & Plan Assessment & Plan (1) Third degree heart block: Code(s): I44.2 - Atrioventricular block, complete Category: Medical Plan: Recent finding third-degree heart block, transferred to [facility] and underwent Medtronic dual-chamber pacemaker placement 03/20/25. Pacer site well healed. EKG today showing atrial sensed, ventricular paced rhythm. He has been off carvedilol at time of last visit and now it is active on his list but will need to call him and clarify the dose. No Med changes at this time. (2) Pacemaker: Comment: Medtronic dual-chamber pacemaker placement 03/20/2025 Code(s): Z95.0 - Presence of cardiac pacemaker Category: Medical Plan: Interrogation today shows device is functioning normally. He has remote monitoring in use. Next office interrogation due in 6 months. (3) Status post aortic valve replacement: Code(s): Z95.2 - Presence of prosthetic heart valve Category: Surgical Plan: History of aortic stenosis, status post bioprosthetic AVR. Last echo done 03/16/2025 shows EF 60-65%, stenosis of bioprosthetic aortic valve with mean gradient 21 mmHg, ascending aorta 4.0 cm. Prior echo done 05/12/2023 had shown mean gradient 11 mmHg. No cardinal signs of severe . Though signs reviewed with him in detail. Will plan for repeat echocardiogram in prior to next visit. (4) Prosthetic valve dysfunction: Comment: Secondary to patient prosthesis mismatch. Mean gradient of 21 mm Hg post surgical at baseline. Code(s): T82.09XA - Other mechanical complication of heart valve prosthesis, initial encounter Category: Medical Plan: As above (5) History of cardiomyopathy: Comment: Improved after aortic valve replacement with last LVEF of 50-55% Code(s): Z86.79 - Personal history of other diseases of the circulatory system Category: Medical Plan: History of cardiomyopathy. EF improved following aortic valve replacement and neurohormonal modulation. Most recent EF 60-65 %. No signs of heart failure on examination. Continue valsartan, carvedilol, Jardiance. He has CPAP says he is not able to wear it as it causes him congestion. Instructed to wear CPAP as much as tolerated. Can discuss further with his PCP/Pulmonary provider if needed. Continue physical activity as tolerated, weight loss recommended. (6) Essential hypertension: Code(s): I10 - Essential (primary) hypertension Category: Medical Plan: Blood pressure goal less than 130/80. Well controlled at this time. No medication changes have been made. (7) Hyperlipidemia LDL goal <70: Code(s): E78.5 - Hyperlipidemia, unspecified Category: Medical Plan: [place] LDL goal less than 70 in patient with diabetes. Is not on statin therapy for unclear reason -followed by PCP. Labs done 02/28/2025 had shown LDL 91. Recommend use of statin as long as no clear contraindication. Will forward this note to his PCP. (8) Enlarged thoracic aorta: Code(s): I77.89 - Other specified disorders of arteries and arterioles Category: Medical Plan: Ascending aorta dilated at 4.0 cm on most recent echocardiogram. Plan Time spent on chart review, documentation, interview and assessment Coding Level of Care Code Est Pt Level 4 (87448) Complex EM visit Add On G2211 Diagnoses Third degree heart block I44.2 Pacemaker Z95.0 Status post aortic valve replacement Z95.2 Prosthetic valve dysfunction T82.09XA History of cardiomyopathy Z86.79 Essential hypertension I10 Hyperlipidemia LDL goal <70 E78.5 Enlarged thoracic aorta I77.89 CPT Codes Cardiac Device Check - Cardiac Device 2: [id number] Cardiac Device Check, pacemaker dual lead ([id number]) Time Spent (min) 30
[2025-04-23 13:40] VITALS: BP 110/62; PULSE 87; BMI 36.8
--- OUTSIDE RECORDS SUMMARY | 2025-04-23 15:32 | XMS_ITS | Encounter Summary ---
Author Organization [employer] Address [address] [place] [address] Care Team Providers Care Senior Clinical Data Coordinator Name Role Phone Galo Fang MD Primary Care Provide r Reason for Visit * Reason Comments Med Refill Encounter Details Date Type Department Care Team ([facility] st Contact Info) Description 09/08/2024 Refill [facility] MED[facility]INE [address] [place] [address] Carroll Roberts MD [address] [place], [place] [phone] Uncomplicated opioid dependence (CMS/HCC) Social History Tobacco [...] Care Team (Late st Contact Info) Description 06/22/2025 9:00 AM EST Office Visit [facility] [address] [place] [phone] Carroll Roberts MD [address] [place] [address] documented as of this encounter Visit Diagnoses Diagnosis Uncomplicated opioid dependence (CMS/HCC) documented in this encounter Additional Health Concerns Assessment Noted Time PHQ-9 Depression Total Score: 0 05/26/20 9:56 AM EDT documented as of this encounter Care Teams Senior Clinical Data Coordinator Relationship Specialty Start Date End Date Galo Fang MD [address] [place] [id number] PCP - General Internal Medicine 04/04/14 documented as of this encounter
--- OUTSIDE RECORDS SUMMARY | 2025-04-23 15:32 | XMS_ITS | Encounter Summary ---
Author Organization [facility] Address [address] [place] [address] Care Team Providers Care Manager Of It Name Role Phone Galo Fang MD Primary Care Provide r Reason for Visit * Reason Comments Med Refill Encounter Details Date Type Department Care Team ([facility] Contact Info) Description 11/07/2022 Refill [facility] MEDICINE [address] [place] [phone] Carroll Roberts MD [address] [place] [address] [phone] Uncomplicated opioid dependence (CMS/HCC) Social History Tobacco [...] Department Care Team (Late Contact Info) Description 06/22/2025 9:00 AM EST Office Visit [facility] MEDICINE [address] [place] [phone] Carroll Roberts MD [address] [place] [address] [phone] documented as of this encounter Visit Diagnoses Diagnosis Uncomplicated opioid dependence (CMS/HCC) documented in this encounter Care Teams Manager Of It Relationship Specialty Start Date End Date Galo Fang MD [address] [place] [id number] PCP - General Internal Medicine 04/04/14 documented as of this encounter
--- OUTSIDE RECORDS SUMMARY | 2025-04-23 15:32 | XMS_ITS | Encounter Summary ---
Author Organization [employer] Address [address] [place] [address] 7t [place] [address] Care Team Providers Care Rail Assembler Name Role Phone Galo Fang MD Primary Care Provide r Reason for Visit * Reason Onset Date Comments Med Refill TP 01/02/2023 Encounter Details Date Type Department Care Team (Late st Contact Info) Description 01/02/2023 Telephone [facility] [address] [place] [address] [phone] Carroll Roberts MD [address] [place], [place] [phone] Med Refill; TP Social History Tobacco Use [...] Dr. Moulton is only available Tuesdays and 's and wants PCP with more availability. documented in this encounter Plan of Treatment Upcoming Encounters Date Type Department Care Team (Late Contact Info) Description 06/22/2025 9:00 AM EST Office Visit [facility] [address] [place] [address] Carroll Roberts MD [address] [place], [place] [phone] documented as of this encounter Visit Diagnoses Diagnosis Uncomplicated opioid dependence (CMS/HCC) documented in this encounter Care Teams Rail Assembler Relationship Specialty Start Date End Date Galo Fang MD [address] [place] [address] PCP - General Internal Medicine 04/04/14 documented as of this encounter
--- OUTSIDE RECORDS SUMMARY | 2025-04-23 15:32 | XMS_ITS | Encounter Summary ---
Author Organization [facility] Address [address] [place] [address] 7 [place] [address] Care Team Providers Care Final Armature Tester Name Role Phone Galo Fang MD Primary Care Provide r Reason for Visit * Reason Comments Med Refill Encounter Details Date Type Department Care Team ([facility] Contact Info) Description 11/03/2022 Refill [facility] [address] [place] [phone] Jess Barriga MD [address] [place] [phone] Mild intermittent asthma without complication Social History [...] Description 06/22/2025 9:00 AM EST Office Visit [facility] [address] [place] [phone] Carroll Roberts MD [address] [place] [phone] documented as of this encounter Visit Diagnoses Diagnosis Mild intermittent asthma without complication documented in this encounter Care Teams Final Armature Tester Relationship Specialty Start Date End Date Galo Fang MD [address] [place] [phone] PCP - General Internal Medicine 04/04/14 documented as of this encounter
--- OUTSIDE RECORDS SUMMARY | 2025-04-23 15:32 | XMS_ITS | Encounter Summary ---
Author Organization [facility] Address [address] [place] [address] [place] [address] Care Team Providers Care Sebd Teacher Name Role Phone Galo Fang MD Primary Care Provide r Reason for Visit * Reason Comments Med Refill Encounter Details Date Type Department Care Team ([facility] Contact Info) Description 11/12/2022 Refill [facility] [address] [place] [phone] Galo Fang MD [address] [place] [phone] Gastroesophageal reflux disease, unspecified whether esophagitis present [...] Description 06/22/2025 9:00 AM EST Office Visit [facility] [address] [place] [phone] Carroll Roberts MD [address] [place] [phone] documented as of this encounter Visit Diagnoses Diagnosis Gastroesophageal reflux disease, unspecified whether esophagitis present documented in this encounter Care Teams Sebd Teacher Relationship Specialty Start Date End Date Galo Fang MD [address] [place] [address] PCP - General Internal Medicine 04/04/14 documented as of this encounter
--- OUTSIDE RECORDS SUMMARY | 2025-04-23 15:32 | XMS_ITS | Encounter Summary ---
Author Organization [facility] Address [address] [place] [address] 7t [place] [address] Care Team Providers Care Wood Patternmaker Name Role Phone Galo Fang MD Primary Care Provide r Encounter Details Date Type Department Care Team (Late Contact Info) Description 12/23/2022 Abstract [facility] [address] [place] [phone] Galo Fang MD [address] [place] [address] [phone] Social History Tobacco Use Types Packs/Day Years [...] Description 06/22/2025 9:00 AM EST Office Visit [facility] [address] [place] [phone] Carroll Roberts MD [address] [place] [address] [phone] documented as of this encounter Procedures Procedure Name Priority Date/Time Associated Diagnosis Comments COLONOSCOPY Routine 07/29/2018 documented in this encounter Results * Hm Colonoscopy (07/29/2018) Colonoscopy Normal Normal 07/29/2018 Narrative Georgia Rubio - 07/29/2018 1:52 PM EST Recommended 10 year follow up us Historical Provider HEALTH MAINTENANCE Final Result documented in this encounter Visit Diagnoses Not on filedocumented in this encounter Care Teams Wood Patternmaker Relationship Specialty Start Date End Date Galo Fang MD [address] [place] [phone] PCP - General Internal Medicine 04/04/14 documented as of this encounter
--- OUTSIDE RECORDS SUMMARY | 2025-04-23 15:33 | XMS_ITS | Encounter Summary ---
Author Organization [employer] Address [address] [facility] 7t [place] [address] Care Team Providers Care Industrial Plant Custodian Name Role Phone Galo Fagn MD Primary Care Provide r Reason for Visit * Reason Comments Med Refill Encounter Details Date Type Department Care Team ([facility] st Contact Info) Description 12/03/2023 Refill [facility] [address] [place] [address] Carroll Roberts MD [address] [place], [place] [phone] Uncomplicated opioid dependence (CMS/HCC) Social History Tobacco [...] Description 06/22/2025 9:00 AM EST Office Visit [facility] [address] [place] [address] Carroll Roberts MD [address] [place] [address] documented as of this encounter Visit Diagnoses Diagnosis Uncomplicated opioid dependence (CMS/HCC) documented in this encounter Additional Health Concerns Assessment Noted Time PHQ-9 Depression Total Score: 0 07/01/20 23 1:10 PM EST documented as of this encounter Care Teams Industrial Plant Custodian Relationship Specialty Start Date End Date Galo Fang MD [address] [place] [phone] PCP - General Internal Medicine 04/04/14 documented as of this encounter
--- OUTSIDE RECORDS SUMMARY | 2025-04-23 15:33 | XMS_ITS | Patient Health Record ---
Author Organization [facility] Address [address] [place] [address] Care Team Providers Care Employee Benefits Manager Name Role Phone Ahmet Abbasi Unavailable [phone] Reason For Referral No Information Plan Of Treatment No Information
--- OUTSIDE RECORDS SUMMARY | 2025-04-23 15:33 | XMS_ITS | Encounter Summary ---
Author Organization [employer] Address [address] [facility] 7t [place] [address] Care Team Providers Care Field Service Representative Name Role Phone Galo Fang MD Primary Care Provide r Reason for Visit * Reason Comments Med Refill Encounter Details Date Type Department Care Team ([facility] st Contact Info) Description 12/23/2023 Refill [facility] [address] [place], [place] [phone] Carroll Roberts MD [address] [place], [place] [phone] Constipation, unspecified constipation type Social History Tobacco [...] Description 06/22/2025 9:00 AM EST Office Visit [facility] [address] [place] [phone] Carroll Roberts MD [address] [place] [phone] documented as of this encounter Visit Diagnoses Diagnosis Constipation, unspecified constipation type documented in this encounter Additional Health Concerns Assessment Noted Time PHQ-9 Depression Total Score: 0 07/01/20 23 1:10 PM EST documented as of this encounter Care Teams Field Service Representative Relationship Specialty Start Date End Date Galo Fang MD [address] [place] [phone] PCP - General Internal Medicine 04/04/14 documented as of this encounter
--- OUTSIDE RECORDS SUMMARY | 2025-04-23 15:33 | XMS_ITS | Encounter Summary ---
Author Organization [employer] Address [address] [facility] 7t [place] [address] Care Team Providers Care Curbing Stonecutter Name Role Phone Galo Fang MD Primary Care Provide r Reason for Visit * Reason Comments Med Refill Encounter Details Date Type Department Care Team ([facility] st Contact Info) Description 01/28/2024 Refill [facility] [address] [place] [address] Carroll Roberts MD [address] [place], [place] [phone] Uncomplicated opioid dependence (CMS/HCC) Social History Tobacco [...] Description 06/22/2025 9:00 AM EST Office Visit [facility] [address] [place] [address] Carroll Roberts MD [address] [place] [address] documented as of this encounter Visit Diagnoses Diagnosis Uncomplicated opioid dependence (CMS/HCC) documented in this encounter Additional Health Concerns Assessment Noted Time PHQ-9 Depression Total Score: 0 07/01/20 23 1:10 PM EST documented as of this encounter Care Teams Curbing Stonecutter Relationship Specialty Start Date End Date Galo Fang MD [address] [place] [phone] PCP - General Internal Medicine 04/04/14 documented as of this encounter
--- OUTSIDE RECORDS SUMMARY | 2025-04-23 15:33 | XMS_ITS | Encounter Summary ---
Author Organization [employer] Address [address] [place] [address] 7 [place] [address] Care Team Providers Care Bell Cleaner Name Role Phone Galo Fang MD Primary Care Provide r Encounter Details Date Type Department Care Team (Late Contact Info) Description 06/14/2023 Abstract [facility] [address] [place] [phone] Galo Fang MD [address] [place] [address] [phone] Social History Tobacco Use Types Packs/Day Years [...] Description 06/22/2025 9:00 AM EST Office Visit [facility] [address] [place] [address] [phone] Carroll Roberts MD [address] [place], [place] [phone] documented as of this encounter Procedures Procedure [...] on filedocumented in this encounter Care Teams Bell Cleaner Relationship Specialty Start Date End Date Galo Fang MD [address] [place] [phone] PCP - General Internal Medicine 04/04/14 documented as of this encounter
--- OUTSIDE RECORDS SUMMARY | 2025-04-23 15:33 | XMS_ITS | Encounter Summary ---
Author Organization [employer] Address [address] [facility] 7t [place] [address] Care Team Providers Care Senior Benefits Specialist Name Role Phone Galo Fang MD Primary Care Provide r Reason for Visit * Reason Onset Date Comments Med Refill 12/29/2024 Encounter Details Date Type Department Care Team (Late st Contact Info) Description 12/29/2024 Refill [facility] [address] [place] [address] 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 RN Uncomplicated opioid dependence (CMS/HCC) [...] t he electric, gas, oil or water [employer] threatened to shut off services in your [...] 9:00 AM EST Office Visit [facility] [address] [place], [place] [phone] Carroll Roberts MD [address] [place] [address] documented as of this encounter Goals Goal Patient Goal Type Associated Problems Recent Progress Patient-Stated? Author Increase coping skills to promote long-term recovery and improve ability to perform daily activities General On track( 025 9:26 AM EDT) No 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, GULSHAN documented as of this encounter Visit Diagnoses Diagnosis Uncomplicated opioid dependence (CMS/HCC) documented in this encounter Additional Health Concerns Assessment Noted Time PHQ-9 Depression Total Score: 0 05/26/20 24 9:56 AM EDT documented as of this encounter Care Teams Senior Benefits Specialist Relationship Specialty Start Date End Date Galo Fang MD [address] [place] [address] PCP - General Internal Medicine 04/04/14 documented as of this encounter
--- OUTSIDE RECORDS SUMMARY | 2025-04-23 15:33 | XMS_ITS | Encounter Summary ---
Author Organization [employer] Address [address] [facility] 7t [place] [address] Care Team Providers Care Food Adviser Name Role Phone Galo Fang MD Primary Care Provide r Reason for Visit * Reason Comments Med Refill Encounter Details Date Type Department Care Team ([facility] st Contact Info) Description 04/20/2024 Refill [facility] [address] [place], [place] [phone] Jocelyn Cruz FNP [address] [place] [address] Social History Tobacco Use Types Packs/Day Years [...] Description 06/22/2025 9:00 AM EST Office Visit [facility] [address] [place] [phone] Carroll Roberts MD [address] [place] [phone] documented as of this encounter Visit Diagnoses Not on filedocumented in this encounter Additional Health Concerns Assessment Noted Time PHQ-9 Depression Total Score: 0 07/01/20 23 1:10 PM EST documented as of this encounter Care Teams Food Adviser Relationship Specialty Start Date End Date Galo Fang MD [address] [place] [phone] PCP - General Internal Medicine 04/04/14 documented as of this encounter
--- OUTSIDE RECORDS SUMMARY | 2025-04-23 15:33 | XMS_ITS | Clinical Summary ---
Author Organization [employer] Address [address] [place] [address] Care Team Providers Care Cane Cutter Name Role Phone Galo Fang MD Primary Care Provide r Allergies Active Allergy Reactions Criticality Noted Date Comments Lisinopril 06/29/2017 Other reaction(s): itchy throat Medications albuterol (2.5 MG/3ML) 0.083% nebulizer solution Inhale 3 mL every 8 (eight) hours. 021 Active valsartan (Diovan) 80 MG tablet Take 80 mg by mouth 2 times daily. 023 Active Continuous Blood Gluc Sensor (FreeStyle Yahaira 2 Sensor) misc USE DIRECTED EVERY 2 WEEKS 023 Active Continuous Blood Gluc Classification Control Clerk (FreeStyle Yahaira 2 [place]) device USE DIRECTED 023 Active FREESTYLE LITE test strip TEST 3 TIMES A DAY DIRECTED 023 Active naloxone (Narcan) 4 mg/0.1 mL nasal spray ADMINISTER 1 SPRAY INTO ONE NOSTRIL. CALL 911. REPEAT AFTER 2-3 MIN IF NO OR MINIMAL RESPONSE 2 each 1 024 Active insulin lispro (HumaLOG) 100 UNIT/ML injection INJECT 14 UNITS SUBCUTANEOUSLY BEFORE BREAKFAST, 16 UNITS BEFORE LUNCH, AND 18 UNITS BEFORE SUPPER 10 mL 6 024 Active Diclofenac Sodium 1 % gel APPLY 2 GRAMS TOPICALLY 4 TIMES A DAY 100 g 2 025 Active acetaminophen (Tylenol) 325 MG tabletIndicatio ns:Chronic midline low back pain without sciatica TAKE 2 TABLETS BY MOUTH EVERY 8 HOURS NEEDED FOR PAIN 90 tablet 1 025 Active docusate sodium (Colace) 100 MG capsuleIndicati ons:Constipatio n, unspecified constipation type TAKE 1 TO 2 CAPSULES BY MOUTH EVERY DAY AT BEDTIME NEEDED FOR CONSTIPATION 180 capsule 1 025 Active cetirizine (ZyrTEC) 10 MG tabletIndicatio ns:Seasonal allergies TAKE 1 TABLET BY MOUTH EVERY DAY IN THE MORNING 90 tablet 1 025 Active sennosides (Senna-Time) 8.6 MG tabletIndicatio ns:Constipation , unspecified constipation type TAKE 1-2 TABLET(S) BY MOUTH DAILY AT BEDTIME NEEDED FOR CONSTIPATION 180 tablet 3 025 Active baclofen (Lioresal) 10 MG tablet TAKE 1/2 TABLET BY MOUTH 3 TIMES DAILY 45 tablet 025 Active Jardiance 25 MG Take 25 mg by mouth in the morning. 025 Active Mounjaro 7.5 MG/0.5ML solution auto-injector Inject 0.5 mL under the skin every 7 (seven) days. 025 Active sildenafil (Viagra) 100 MG tabletIndicatio ns:Erectile dysfunction due to diseases classified elsewhere Take 1 tablet (100 mg) by mouth if needed each day for erectile dysfunction. 10 tablet 1 025 Active atorvastatin (Lipitor) 20 MG tabletIndicatio ns:Type 2 diabetes mellitus with diabetic polyneuropathy, with long-term current use of insulin ([facility]) Take 1 tablet (20 mg) by mouth Once per day. 30 tablet 6 025 Active polyethylene glycol, PEG, 3350 (GaviLAX) 17 GM/SCOOP powder TAKE (17G) BY ORAL ROUTE EVERY DAY MIXED WITH 8 OZ. WATER, JUICE, COFFEE OR TEA 510 g 2 025 Active Buprenorphine HCl-Naloxone HCl (Suboxone) 8-2 MG SL filmIndications :Opioid use disorder in remission Place 1 Film under the tongue Once per day. 28 Film 2 025 2024 Active buprenorphine-n aloxone (Suboxone) 2-0.5 MG per sublingual filmIndications :Opioid use disorder in remission Place 1 Film under the tongue Once per day. 28 Film 2 025 2024 Active aspirin 81 MG EC tablet Take 1 tablet by mouth Once per day. Active Tresiba FlexTouch 200 UNIT/ML injection INJECT 80 UNITS AT BEDTIME 9 mL 3 025 Active omeprazole (PriLOSEC) [address] capsuleIndicati ons:Gastroesoph ageal reflux disease without esophagitis TAKE 1 CAPSULE BY MOUTH EVERY DAY IN THE MORNING 90 capsule 1 025 Active clotrimazole (Lotrimin) 1 % creamIndication s:Tinea corporis APPLY TO AFFECTED AREA TWICE A DAY IN THE MORNING AND IN THE EVENING 60 g 022 2024 Discontinued(M ed list cleanup (will not trigger notification to Pharmacy)) fluticasone (Flovent HFA) 220 MCG/ACT inhalerIndicati ons:Mild intermittent asthma without complication Take 1 puff by mouth twice a day 12 g 6 023 2024 Discontinued(M ed list cleanup (will not trigger notification to Pharmacy)) omeprazole (PriLOSEC) [address] capsuleIndicati ons:Gastroesoph ageal reflux disease without esophagitis TAKE 1 CAPSULE BY MOUTH EVERY DAY IN THE MORNING 90 capsule 1 024 2024 Discontinued Tresiba FlexTouch 200 UNIT/ML injection INJECT 80 UNITS AT BEDTIME 9 mL 5 025 2024 Discontinued carvedilol (Coreg) 12.5 MG tablet Take 12.5 mg by mouth 2 times daily. 025 2024 Discontinued(M ed list cleanup (will not trigger notification to Pharmacy)) Active Problems Problem Noted Date Diagnosed Date Hospital discharge follow-up 04/10/2025 Assessment & Plan (04/10/2025 9:13 AM EDT): Pt here for a HDF [place] [facility] [place] after he presented with c/o SOB and abdominal pain. He was found to be in complete heart block and underwent a pacemaker placement by EP 03/20/2025 Pt feels good today, has no complaints Has a follow up already scheduled with Cardiology 04/23/2025 Other osteoporosis without current pathological fracture 09/12/2024 [...] acute bony abnormality. Pt was seen by Horse Stud Manager 05/17/2024 work up in progress Assessment & [...] and L1-L2 levels. Under the care of [facility] pain Management, they recommended PT and if [...] LS Spine, [facility] Assessment & Plan (04/06/2023 1:21 PM EDT): Pt with previous c/o acute om chronic lbp currently back pain is worse per his report intensity 4/10 no radiation not a good candidate for NSAIDS, continues to decline PT Pt was referred to [facility], pt did not go. plain film of LS spine unremarkable Preventative health care 03/02/2023 Assessment & Plan (03/13/2025 1:28 PM EDT): PSA 09/05/2024 : Normal, Colonoscopy: [place]2018 [place] [facility] [place] Assessment & Plan (09/12/2024 9:25 AM EST): PSA 04/06/2023 : Normal, repeat ordered Colonoscopy: 07/29/2018 at [facility] diverticulosis Assessment & Plan (07/01/2023 1:02 PM EST): PSA 04/06/2023 : Normal Colonoscopy: 07[place]29[place]2018 [place] [facility] [place] Assessment & Plan (04/06/2023 1:22 PM EDT): Colonoscopy: 07[place]29/2018 [place] [facility] [place] Aortic valve stenosis 07/17/2022 Assessment & [...] aortic valve replacement 07/17/2022 Assessment & Plan (04/10/2025 9:13 AM EDT): Here for a f/u Pt with Hx of severe aortic valve stenosis. Echocardiogram 2017 showed moderate aortic stenosis and EF 55-60% Pt is s/p dobutamine stress test which showed a gradient of 62mmHg through aortic valve, he also had cardiac cath which he was told was non obstructive, He is now s/p Aortic valve replacement surgery with bioprosthetic valve. Last seen by Cardiology 01/18/2025. EF Improved after aortic valve replacement with last LVEF of 50-55% per Dr Frank elaine Pt tells me he has a follow up 04/23/2025 Assessment & Plan (03/13/2025 1:25 PM EDT): Here for a f/u Pt with Hx of severe aortic valve stenosis. Echocardiogram 2017 showed moderate aortic stenosis and EF 55-60% Pt is s/p dobutamine stress test which showed a gradient of 62mmHg through aortic valve, he also had cardiac cath which he was told was non obstructive, He is now s/p Aortic valve replacement surgery with bioprosthetic valve. Last seen by Cardiology 01/18/2025. EF Improved after aortic valve replacement with last LVEF of 50-55% per Dr Marie note Assessment & Plan (09/12/2024 9:26 AM EST): [...] 01/27/2018 Essential hypertension 02/13/2016 Assessment & Plan (04/10/2025 9:08 AM EDT): Patient is here for a f/u BP currently controlled He is on a regimen of: Valsartan 80 mg po daily. Given adequate blood pressure control will continue with current medical regimen. Most recent electrolytes, Bun and Creatinine done on: Lab Results Component Value Date NA 136 03/18/2025 NA 135 06/07/2024 K 4.3 03/18/2025 K 4.5 06/07/2024 CL 102 03/18/2025 CL 100 06/07/2024 BUN 15 03/18/2025 BUN 20 (H) 06/07/2024 CREATININE 0.81 03/18/2025 CREATININE 0.90 06/07/2024 were within normal limits. patient advised to adhere to a low sodium diet, encouraged about medication compliance, counseled about weight loss. 4 month follow up Assessment & Plan (03/13/2025 1:22 PM EDT): Patient is here for a [...] about medication compliance, counseled about weight loss. Repeat BMP 4 month follow up Assessment & Plan (09/12/2024 1:08 PM EST): [...] Cardiology 05/15/2024 Hyperlipidemia 08/01/2012 Assessment & Plan (03/13/2025 1:40 PM EDT): Here for a f/u Most recent lipid profile from: Lab Results Component Value Date TRIG 187 (H) 02/28/2025 TRIG 132 09/15/2024 CHOL 164 02/28/2025 CHOL 173 09/15/2024 LDLCHOLCAL 91 02/28/2025 LDLCHOLCAL 106 (H) 09/15/2024 HDL 36 (L) 02/28/2025 HDL 41 09/15/2024 Currently on a regimen of: Fish Oil 1000 mg po TID . Pt is diabetic, will start moderate intensity statin Atorvastatin 20 mg po qhs advised to try to adhere to a low cholesterol diet, counseled and educated about diet and exercise, Patient encouraged to come up with a personal goal for weight loss. Assessment & Plan (09/12/2024 9:24 AM EST): [...] lipid profile from: 04/06/2023 Triglycerides <150 mg/dL 213 High 159 High 149 145 Comment: Desirable Triglyceride: less than 150 mg/dLBorderline High Triglyceride 150-199 mg/dLHigh Triglyceride: 200-499 mg/dLVery High Triglyceride: greater than or equal to 5OO mg/dL Cholesterol <200 mg/dL 158 Comment: Desirable Cholesterol: less than 200 mg/dLBorderline High Cholesterol: 200-239 mg/dLHigh Cholesterol: greater than 239 mg/dL LDL Cholesterol Calculated <100 mg/dL 83 Comment: Desirable LDL: less than 100 mg/dLNear Optimal/Above Optimal LDL: 110-129 mg/dLBorderline High LDL: 130-159 mg/dLHigh LDL: 160-189 mg/dLVery High LDL: greater than or equal to 190 mg/dL HDL Cholesterol >40 mg/dL 33 Low 38 Low R 40 R 38 Low R Currently on a regimen of: Fish [...] diabetic polyneuro caity 08/01/2012 Assessment & Plan (04/10/2025 9:12 AM EDT): Patient is here for a f/u DM remains uncontrolled Under the care of Endocrinology , last seen 01/26/2025 He is on a regimen of: Tresiba 76 units daily Lispro 12 before breakfast, 14 before lunch and dinner Jardiance 25 mg daily Off Metformin ,( Pt stopped due to cramps ). Stopped Trulicity and Ozempic due to GI side effects. Stopped Mounjaro 7.5 mg weekly due to GI side effects as well Hgb A1c 04/10/2025: 7.6 from 7.8 Eye exam was last done by Dr. Littlejohn (carpenter streetcar) No diabetic retinopathy. 07/31/2024 Microalbumin checked on: 11/29/2023 was: 7 Pt is on ARB (lisinopril caused him itchy throat and ? angioedema ? ) . Foot check risk of zero Pt reports compliance with Asa 81 mg po daily Plan: As per Propeller Engineer Pt advised to: adhere to diabetic diet check your blood sugars regularly check your feet on a daily basis f/u 4 months Assessment & Plan (03/13/2025 1:31 PM EDT): Patient is here for a f/u DM uncontrolled Under the care of Endocrinology , last seen 01/26/2025 He is on a regimen of: Tresiba 76 units daily Lispro 12 before breakfast, 14 before lunch and dinner Mounjaro 7.5 mg weekly Jardiance 25 mg daily Off Metformin ,( Pt stopped due to cramps ). Stopped Trulicity and Ozempic due to GI side effects. Hgb A1c 03/13/2025: 7.8 from 6.8 from 8.3 from 8.8 from 9.7 From 10.6 Eye exam was last done by Dr. Littlejohn ([facility]) No diabetic retinopathy. 07/31/2024 Microalbumin checked on: 11/29/2023 was: 7 Pt is on ARB (lisinopril caused him itchy throat and ? angioedema ? ) . Foot check risk of zero Pt reports compliance with Asa 81 mg po daily Plan: As per Propeller Engineer Pt advised to: adhere to diabetic diet check your blood sugars regularly check your feet on a daily basis f/u 4 months Assessment & Plan (09/12/2024 1:11 PM EST): [...] exam was last done by Dr. Littlejohn ([facility]) No diabetic retinopathy. 07/31/2024 Microalbumin checked on: 11/29/2023 was: 7 Pt is on ARB (lisinopril caused him itchy throat and ? angioedema ? ) . Foot check risk of zero Pt reports compliance with Asa 81 mg po daily Plan: as per Propeller Engineer Pt advised to: adhere to diabetic diet [...] exam was last done by Dr. Littlejohn ([facility]) No diabetic retinopathy. Microalbumin checked on: 11/29/2023 was: 7 Pt is no longer on an WALDEMAR inhibitor. (lisinopril caused him itchy throat and ? angioedema ? ) . Foot check risk of zero Pt reports compliance with Asa 81 mg po daily Plan: as per Propeller Engineer Pt advised to: adhere to diabetic diet [...] exam was last done by Dr. Littlejohn ([facility]) No diabetic retinopathy. Microalbumin checked on: 01/14/2021 was: 22 Pt is no longer on an WALDEMAR inhibitor. (lisinopril caused him itchy throat and ? angioedema ? ) . Foot check risk of zero Pt reports compliance with Asa 81 mg po daily Plan: as per Propeller Engineer Pt advised to: adhere to diabetic diet [...] exam was last done by Dr. Littlejohn ([facility]) No diabetic retinopathy. Microalbumin checked on: 01/14/2021 was: 22 Pt is no longer on an WALDEMAR inhibitor. (lisinopril caused him itchy throat and ? angioedema ? ) . Will repeat Foot check risk of zero Pt reports compliance with Asa 81 mg po daily Plan: as per Propeller Engineer Pt advised to: adhere to diabetic diet [...] exam was last done by Dr. Littlejohn ([facility]) No diabetic retinopathy. Microalbumin checked on: 01/14/2021 was: 22 Pt is no longer on an WALDEMAR inhibitor. (lisinopril caused him itchy throat and ? angioedema ? 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 Erectile dysfunction 08/16/1959 Assessment & Plan (03/13/2025 1:37 PM EDT): Obtain Testosteromne Free and Total Trial of Viagra Pt is NOT taking nitrates Gastroesophageal reflux disease 08/16/1959 Obesity due to excess calories with serious chucho rbidity 08/16/1959 Assessment & Plan (03/13/2025 1:26 PM EDT): Patient has been counseled and educated about [...] moderate- and vigorous-intensity activity Assessment & Plan (09/12/2024 12:49 PM EST): [...] Encounters Date Type Department Care Team Description 04/16/2025 Refill [facility] [address] [place] [address] Galo Fang MD Gastroesophageal reflux disease without esophagitis 04/11/2025 Refill [facility] [address] [facility] [place] [address] Galo Fang MD 04/10/2025 9:30 AM EDT Office Visit [facility] [address] [facility] [place] [address] Galo Fang MD Hospital discharge follow-up (Primary Dx); Type 2 diabetes mellitus with diabetic polyneuropathy, with long-term current use of insulin (CMS/HCC); Essential hypertension; History of aortic valve replacement 04/10/2025 Travel 04/09/2025 Telephone [facility] [place] [address] Galo Fang MD CHART PREP 03/30/2025 9:00 AM EDT Clinical Support [facility] [place] [address] 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, RN Opioid use disorder in remission 03/30/2025 Travel 03/23/2025 Refill [facility] [place] [address] Deidre Anton RN Opioid use disorder in remission 03/22/2025 Patient Outreach [facility] [facility] [place] [address] Galo Fang MD Transition Of Care (Tcm) (HDF scheduled) 03/18/2025 Orders Only GENERIC EXTERNAL DATA DEPARTMENT Provider, Generic External Data 03/16/2025 Refill [facility] [place] [address] Galo Fang MD 03/13/2025 1:15 PM EDT Office Visit [facility] [place] [address] Galo Fang MD Type 2 diabetes mellitus with diabetic polyneuropathy, with long-term current use of insulin (CMS/HCC) (Primary Dx); Essential hypertension; Mixed hyperlipidemia; History of aortic valve replacement; Class 2 severe obesity due to excess calories with serious comorbidity and body mass index (BMI) of 35.0 to 35.9 in adult (CMS/HCC); Dietary counseling; Exercise counseling; Preventative health care; Erectile dysfunction due to diseases classified elsewhere 03/13/2025 Travel 03/12/2025 Telephone [facility] [place] [address] Galo Fang MD Chart Prep 03/06/2025 Patient Outreach [facility] [address] [place] [address] Galo Fang MD Pre-visit Planning ([facility] screening was completed on 08/31/2024) 02/28/2025 Orders Only GENERIC EXTERNAL DATA DEPARTMENT Provider, Generic External Data 02/15/2025 Refill [facility] [address] [place] [address] Galo Fang MD 01/26/2025 Orders Only GENERIC EXTERNAL DATA DEPARTMENT Provider, Generic External Data 01/24/2025 Patient Outreach [facility] [address] [place] [address] Ambrose Manning Recovery Supports from Last 3 Months Immunizations Immunization Administration Dates Next Due Hep A, Adult [...] Date Recorded Patient Health Questionnaire-9 Score 0 04/10/2025 Patient Health Questionnaire-9 Score 0 04/10/2025 Last PHQ-9: Questionnaire Data Not on file 0 04/10/2025 Housing Stability Answer Date Recorded What is [...] Date Recorded Patient Health Questionnaire-2 Score 0 04/10/2025 Internet Access Answer Date Recorded Internet Access [...] Sign Reading Time Taken Comments Blood Pressure 118/70 04/10/2025 8:57 AM EDT Pulse 60 04/10/2025 8:57 AM EDT Temperature 36.7 C (98.1 F) 04/10/2025 8:57 AM EDT Respiratory Rate 20 04/10/2025 8:57 AM EDT Oxygen Saturation 97% 03/13/2025 1:16 PM EDT Inhaled Oxygen Concentration - - Weight 99.8 kg (220 lb) 04/10/2025 8:57 AM EDT Height 170.2 cm (5' 7 ) 04/10/2025 8:57 AM EDT Body Mass Index 34.46 04/10/2025 8:57 AM EDT Plan of Treatment Upcoming Encounters Date Type Department Care Team (Late st Contact Info) Description 06/22/2025 9:00 AM EST Office Visit [facility] [address] [place] [address] Carroll Roberts MD [address] [place] [address] Health Maintenance Due Date Last Done Comments CT Colonography 1960 FIT DNA/Cologuard 1960 FIT 1960 FOBT 1960 Sigmoidoscopy 1960 Diabetes: Foot Exam 1970 Zoster Vaccines (1 of 2) 2010 RSV Patients and Patients Aged 60 years or older (1 - Risk 60-74 years 1-dose series) 2020 DTaP/Tdap/Td Vaccines (2 - Td or Tdap) 04/04/2025 04/04/2015, 02/06/2003 COVID-19 Vaccine ( season) 2025 08/14/2021, 11/25/2020, 10/28/2020 Influenza Vaccine (#1) 2025 , 06/29/2017, 05/28/2016, Additional history exists Diabetes: Hemoglobin A1C 07/11/2025 025, 03/13/2025, 09/12/2024, Additional history exists SDOH Screening 08/31/2025 08/31/2024 Alcohol/Substance Use Screening 09/12/2025 09/12/2024 Diabetes: Urine Protein Screening 02/28/2026 02/28/2025, 06/07/2024, 11/29/2023, Additional history exists Lipid Panel 02/28/2026 02/28/2025, 08/18, 11/29/2023, Additional history exists Disability Screening 03/13/2026 03/13/2025 Depression Screening 04/10/2026 04/10/2025, 04/10/20 25 Tobacco Screening 04/10/2026 04/10/2025 Eye Exam 07/31/2026 07/31/2024, 07/16, 07/31/2024, Additional history exists Colonoscopy 07/29/2028 07/29/2018, 07/16, 03/16/2013 Colorectal Cancer Screening 07/29/2028 Hepatitis A Vaccines Aged Out 12/16/2010, 07/23/20 09 No longer eligible based on patient's age to complete this topic Hepatitis B Vaccines Completed 12/16/2010, 08/20/2009, 07/23/2009 Pneumococcal Vaccine: 50+ Years Completed 05/23/2024, 01/23/2009 [...] patient's age to complete this topic Meningococcal B Vaccine Aged Out No l onger eligible based on patient's age to complete this topic Meningococcal Vaccine Aged Out No kirill kym eligible based on patient's age to complete this topic RSV under 20 months Aged Out No longe r eligible based on patient's age to complete this topic Rotavirus Vaccines Aged Out No longer eligible based on patient's age to complete this topic Goals Goal Patient Goal Type Associated Problems Recent Progress Patient-Stated? Author Increase coping skills to promote long-term recovery and improve ability to perform daily activities General On track( 025 9:26 AM EDT) No 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 RN Procedures Procedure Name Priority Date/Time Associated Diagnosis Comments POCT GLYCATED HEMOGLOBIN, TOTAL Routine 04/10/2025 9:07 AM EDT Type 2 diabetes mellitus with diabetic polyneuropathy, with long-term current use of insulin ([facility]) POCT GLUCOSE Routine 04/10/2025 9:00 AM EDT Type 2 diabetes mellitus with diabetic polyneuropathy, with long-term current use of insulin ([facility]) CTA CHEST W AND WO CONTRAST Routine 03/18/2025 11:23 AM EDT CTA ABDOMEN PELVIS W AND WO CONTRAST Routine 03/18/2025 11:23 AM EDT B TYPE NATRIURETIC PEPTIDE (BNP) Routine 03/18/2025 9:29 AM EDT HIGH SENSITIVITY TROPONIN I Routine 03/18/2025 9:29 AM EDT LIPASE Routine 03/18/2025 9:29 AM EDT MAGNESIUM Routine 03/18/2025 9:29 AM EDT COMPREHENSIVE METABOLIC PANEL Routine 03/18/2025 9:29 AM EDT CBC WITH AUTO DIFFERENTIAL Routine 03/18/2025 9:29 AM EDT HOLD LT BLUE - POSSIBLE COAG Routine 03/18/2025 9:29 AM EDT POCT GLUCOSE Routine 03/13/2025 1:27 PM EDT Type 2 diabetes mellitus with diabetic polyneuropathy, with long-term current use of insulin ([facility]) POCT GLYCOSYLATED HEMOGLOBIN (HGB A1C) Routine 03/13/2025 1:26 PM EDT Type 2 diabetes mellitus with diabetic polyneuropathy, with long-term current use of insulin ([facility]) TSH W/REFLEX TO FT4 Routine 02/28/2025 1 0:04 AM EDT AMYLASE Routine 02/28/2025 10:04 AM EDT LIPID PANEL, STANDARD Routine 02/28/2025 10:04 AM EDT ALT Routine 02/28/2025 10:04 AM EDT PLATELET COUNT Routine 02/28/2025 10:04 AM EDT ALBUMIN, RANDOM URINE W/CREATININE Routine 02/28/2025 10:02 AM EDT GLUCOSE, WHOLE BLOOD Routine 01/26/2025 1:11 PM EDT HEPATITIS PANEL, GENERAL Routine 06/07/2024 10:41 AM EDT HIV 1/2 ANTIGEN/ANTIBODY, FOURTH GENERATION W/RFL Routine 06/07/2024 10:41 AM EDT Opioid use disorder in remission HM COLONOSCOPY Routine 07/29/2018 from Last 3 Months or Most Recently Relevant to Health Maintenance Results * (ABNORMAL) POCT HGB A1C (04/10/2025 9:07 AM EDT) Hemoglobin A1C 7.6(A) 4.0 - 5.7 % QC Media Lot # [id number] Lot# Expiration Date [id number] Blood 04/10/2025 9:07 AM EDT us Galo Ramey MD POINT OF CARE TEST EN TER/EDIT ORDERABLES Final Result * POCT Glucose (04/10/2025 9:00 AM EDT) Only the most recent of2 resultswithin the time period is included. Glucose Blood, POC 179 60 - 200 mg/dL Comment:random QC Media Lot # [id number] Lot# Expiration Date [id number] Blood Capillary blood specimen / Unknown 04/10/2025 9:00 AM EDT us Galo Ramey MD POINT OF CARE TEST EN TER/EDIT ORDERABLES Final Result * CTA Abdomen Pelvis w/ and w/o Contrast (03/18/2025 11:23 AM EDT) Anatomical Region Laterality Modality Body, Pelvis, Abdomen Computed T omography 03/18/2025 11:2 3 AM EDT Narrative 03/18/2025 11:25 AM EDT [address] [address] [address] Scan Report Signed Patient: Nemesio Brown MR#: [id number] : 1960 Acct:[id number] Age/Sex: 64 / M ADM Date: 03/18/25 Loc: HO.ED Attending Dr: Ordering Physician: Elise Mccartney Date of Service: 03/18/25 Procedure(s): CT angio abdomen pelvis Accession Number(s): [id number] cc: Galo Prajapati MD; Elise Mccartney Report Number: [id number]: Total DLP = 671.00 mGy-cm CLINICAL HISTORY: r o dissection CT angiography chest, abdomen and pelvis with contrast. 3-D postprocessing. Comparison: None provided Findings: There is mild ectasia of the ascending thoracic aorta. The patient is status post aortic valve replacement. There is no evidence of aortic dissection. There are [id number] coronary artery calcifications. There is a small hiatal hernia. There is reflux of contrast into the IVC and hepatic veins suggesting right heart dysfunction. There is no evidence of pulmonary embolism. There is interlobular septal thickening suggestive of interstitial edema. There are small bilateral pleural effusions. The liver, gallbladder and the rest of the solid organs are unremarkable. No bowel obstruction, pneumoperitoneum, or pneumatosis. The GI tract is otherwise only significant for colonic diverticulosis. There is no evidence of diverticulitis. The bones are intact. IMPRESSION: 1. No systemic arterial aneurysm or dissection. 2. No acute pulmonary embolus. 3. Interstitial edema with small bilateral pleural effusions. Status post aortic valve replacement. This document has been electronically signed by: Les Beltran MD on 03/18/2025 11:23:04 Dictated By: Les Beltran MD Signed By: <Electronically signed by Les Beltran MD in OV> 03/18/25 1124 DD/ 1123 TD/TT: 03/18/25 1123 Sales Administration Specialist: Procedure Note Donotuseinterpreter, Image - 03/18/[address] [address] [address] Scan Report Signed Patient: Radha BrownarMR#: [id number] : 1960Acct:[id number] Age/Sex: 64 / MADM Date: 03/18/25 Loc: HO.ED Attending Dr: Ordering Physician: Elise Mccartney Date of Service: 03/18/25 Procedure(s): CT angio abdomen pelvis Accession Number(s): [id number] cc: Galo Prajapati MD; Elise Mccartney Report Number: [id number]: Total DLP = 671.00 mGy-cm CLINICAL HISTORY: r o dissection CT angiography chest, abdomen and pelvis with contrast. 3-D postprocessing. Comparison: None provided Findings: There is mild ectasia of the ascending thoracic aorta. The patient is status post aortic valve replacement. There is no evidence of aortic dissection. There are cgri-zs-vrnuidtl coronary artery calcifications. There is a small hiatal hernia. There is reflux of contrast into the IVC and hepatic veins suggesting right heart dysfunction. There is no evidence of pulmonary embolism. There is interlobular septal thickening suggestive of interstitial edema. There are small bilateral pleural effusions. The liver, gallbladder and the rest of the solid organs are unremarkable. No bowel obstruction, pneumoperitoneum, or pneumatosis. The GI tract is otherwise only significant for colonic diverticulosis. There is no evidence of diverticulitis. The bones are intact. IMPRESSION: 1. No systemic arterial aneurysm or dissection. 2. No acute pulmonary embolus. 3. Interstitial edema with small bilateral pleural effusions. Status post aortic valve replacement. This document has been electronically signed by: Les Beltran MD on 03/18/2025 11:23:04 Dictated By: Les Beltran MD Signed By: <Electronically signed by Les Beltran MD in OV> 03/18/25 1124 DD/ 1123 TD/TT: 03/18/25 1123 Sales Administration Specialist: us [facility] External Provider IMG CT PROCEDURES Edited Result - Final * CTA Chest w/ and w/o Contrast (03/18/2025 11:23 AM EDT) Anatomical Region Laterality Modality Body, Chest Computed Tomogra phy 03/18/2025 11:2 3 AM EDT Narrative 03/18/2025 11:25 AM EDT [address] [address] [address] Scan Report Signed Patient: Nemesio Brown MR#: [id number] : 1960 Acct:[id number] Age/Sex: 64 / M ADM Date: 03/18/25 Loc: HO.ED Attending Dr: Ordering Physician: Elise Mccartney Date of Service: 03/18/25 Procedure(s): CT angio chest aorta Accession Number(s): [id number] cc: Galo Prajapati MD; Elise Mccartney Report Number: [id number]: Total DLP = 0.00 mGy-cm CLINICAL HISTORY: r o dissection CT angiography chest, abdomen and pelvis with contrast. 3-D postprocessing. Comparison: None provided Findings: There is mild ectasia of the ascending thoracic aorta. The patient is status post aortic valve replacement. There is no evidence of aortic dissection. There are oemx-yo-edfzirkq coronary artery calcifications. There is a small hiatal hernia. There is reflux of contrast into the IVC and hepatic veins suggesting right heart dysfunction. There is no evidence of pulmonary embolism. There is interlobular septal thickening suggestive of interstitial edema. There are small bilateral pleural effusions. The liver, gallbladder and the rest of the solid organs are unremarkable. No bowel obstruction, pneumoperitoneum, or pneumatosis. The GI tract is otherwise only significant for colonic diverticulosis. There is no evidence of diverticulitis. The bones are intact. IMPRESSION: 1. No systemic arterial aneurysm or dissection. 2. No acute pulmonary embolus. 3. Interstitial edema with small bilateral pleural effusions. Status post aortic valve replacement. This document has been electronically signed by: Les Beltran MD on 03/18/2025 11:23:33 Dictated By: Les Beltran MD Signed By: <Electronically signed by Les Beltran MD in OV> 03/18/25 1124 DD/ 1123 TD/TT: 03/18/25 1123 Sales Administration Specialist: Procedure Note Donotuseinterpreter, Image - 03/18/[address] [place] [address] [address] Scan Report Signed Patient: Josee BrownR#: [id number] : 1960Acct:[id number] Age/Sex: 64 / MADM Date: 03/18/25 Loc: HO.ED Attending Dr: Ordering Physician: Elise Mccartney Date of Service: 03/18/25 Procedure(s): CT angio chest aorta Accession Number(s): [id number] cc: Galo Prajapati MD; Elise Mccartney Report Number: [id number]: Total DLP = 0.00 mGy-cm CLINICAL HISTORY: r o dissection CT angiography chest, abdomen and pelvis with contrast. 3-D postprocessing. Comparison: None provided Findings: There is mild ectasia of the ascending thoracic aorta. The patient is status post aortic valve replacement. There is no evidence of aortic dissection. There are evzm-nk-qnmfrfmg coronary artery calcifications. There is a small hiatal hernia. There is reflux of contrast into the IVC and hepatic veins suggesting right heart dysfunction. There is no evidence of pulmonary embolism. There is interlobular septal thickening suggestive of interstitial edema. There are small bilateral pleural effusions. The liver, gallbladder and the rest of the solid organs are unremarkable. No bowel obstruction, pneumoperitoneum, or pneumatosis. The GI tract is otherwise only significant for colonic diverticulosis. There is no evidence of diverticulitis. The bones are intact. IMPRESSION: 1. No systemic arterial aneurysm or dissection. 2. No acute pulmonary embolus. 3. Interstitial edema with small bilateral pleural effusions. Status post aortic valve replacement. This document has been electronically signed by: Les Beltran MD on 03/18/2025 11:23:33 Dictated By: Les Beltran MD Signed By: <Electronically signed by Les Beltran MD in OV> 03/18/25 1124 DD/ 1123 TD/TT: 03/18/25 1123 Sales Administration Specialist: [facility] External Provider IMG CT PROCEDURES Edited Result - Final * (ABNORMAL) High Sensitivity Troponin I (03/18/2025 9:29 AM EDT) TROPONIN I HIGH SENSITIVITY 159.4(HH) <3.5 - 35.0 ng/L [facility] Comment:Critical value for T ROPONIN: Results called to and readback by: CHUCHO Person calling: PUJA Date: 03-18-25 Time:1032The Meza high sensitivity Troponin-I results should beused in conjunction with other diagnostic information suchas ECG, clinical observations and information, and patientsymptoms to aid in the diagnosis of [place]. 03/18/2025 9:29 AM EDT 03/18/2025 9:32 AM EDT Generic External Data Provider LAB BLOOD ORDERAB LES Final Result Performing Organization Address City/[facility]/ZIP Co de Phone Number [facility] [address] [place] [phone] * HOLD LT BLUE - POSSIBLE COAG (03/18/2025 9:29 AM EDT) Hold Lt Blue - Possible Coag SEE NOTE [facility] Comment:Specimen will be hel d untested for 4 hours. Call Hematologyif testing is desired. 03/18/2025 9:29 AM EDT 03/18/2025 9:34 AM EDT Generic External Data Provider LAB BLOOD ORDERAB LES Final Result Performing Organization Address [facility]/ZIP Co de Phone Number [facility] [address] [place] [phone] * (ABNORMAL) CBC auto differential (03/18/2025 9:29 AM EDT) White Blood Count 7.4 4.8 - 10.8 X10*3/uL [facility] Red Blood Count 4.10(L) 4.60 - 5.80 X10*6/uL [facility] Hemoglobin 11.5(L) 14.0 - 18.0 g/dl [facility] Hematocrit 34.8(L) 42.0 - 52.0 % [facility] Mean Corpuscular Volume 84.9 80.0 - 98.0 fL [facility] Mean Corpuscular Hemoglobin 28.0 27.0 - 33.0 pg [facility] Mean Corpuscular HGB Conc 33.0 31.0 - 36.0 g/dl [facility] Red Cell Distribution Width 14.3 11.0 - 16.0 % [facility] Platelet Count 173 160 - 400 X10*3/uL [facility] Mean Platelet Volume 9.6 9.4 - 12.4 fL [facility] Neutrophils Percent Auto 68.5 45 - 73 % [facility] Imm Gran Pct Auto 0.3 0.0 - 0.4 % [facility] Lymphocytes Percent Auto 20.8 20 - 40 % [facility] Monocytes Percent Auto 6.9 2 - 11 % [facility] Eosinophils Percent Auto 3.0 0 - 4 % [facility] Basophils Percent Auto 0.5 0 - 2 % [facility] NRBC Pct Auto 0.0 0.0 - 0.2 /100WBC [facility] Neutrophils Absolute Auto 5.0 2.0 - 8.3 x10*3/uL [facility] Imm Gran Abs Auto 0.02 0.00 - 0.03 X10*3/uL [facility] Lymphocytes Absolute Auto 1.5 1.2 - 4.9 X10*3/uL [facility] Monocytes Absolute Auto 0.5 0.1 - 1.2 X10*3/uL [facility] Eosinophils Absolute Auto 0.2 0.0 - 0.4 X10*3/uL [facility] Basophils Absolute Auto 0.0 0.0 - 0.2 X10*3/uL [facility] NRBC Abs Auto 0.000 0.0 - 0.012 X10*3/uL [facility] 03/18/2025 9:29 AM EDT 03/18/2025 9:32 AM EDT us Generic External Data Provider LAB BLOOD ORDERAB LES Final Result [facility] [address] [place] [phone] * (ABNORMAL) B Type Natriuretic Peptide (BNP) (03/18/2025 9:29 AM EDT) Pathologist [facility] B Type Natriuretic Peptide 387(H) <100 pg/mL [facility] 03/18/2025 9:29 AM EDT 03/18/2025 10:37 AM EDT Generic External Data Provider LAB BLOOD ORDERAB LES Final Result Performing Organization Address [facility] de Phone Number [facility] [address] [place] [phone] * Magnesium (03/18/2025 9:29 AM EDT) Pathologist [facility] Magnesium 2.0 1.6 - 2.6 mg/dL [facility] 03/18/2025 9:29 AM EDT 03/18/2025 9:32 AM EDT Generic External Data Provider LAB BLOOD ORDERAB LES Final Result Performing Organization Address [facility] de Phone Number [facility] [address] [place] [phone] * Lipase (03/18/2025 9:29 AM EDT) Pathologist [facility] Lipase 10 8 - 78 U/L [facility] 03/18/2025 9:29 AM EDT 03/18/2025 9:32 AM EDT Generic External Data Provider LAB BLOOD ORDERAB LES Final Result Performing Organization Address [facility] de Phone Number [facility] [address] [place] [phone] * (ABNORMAL) Comprehensive Metabolic Panel (03/18/2025 9:29 AM EDT) [facility] Sodium 136 135 - 145 mmol/L [facility] Potassium 4.3 3.3 - 5.1 mmol/L [facility] Chloride 102 96 - 108 mmol/L [facility] Carbon Dioxide 27 22 - 29 mmol/L [facility] Anion Gap 11(L) 12 - 20 [facility] Urea Nitrogen (BUN) 15 9 - 16 mg/dL [facility] Creatinine, Serum 0.81 0.5 - 1.4 mg/dL [facility] Creatinine Clr Calc Pharmacy 103.8 [facility] Comment:eGFR (calculated fro m the MDRD study equation) and eCrCl(calculated from the Cockcroft-Gault equation) are based ondifferent parameters and may not yield comparable results.If eCrCl result is absurd, please check patient'sheight/weight. Estimated Glomerular Filt Rate >60 [facility] Comment:Chronic Kidney Disea se: Estimated GFR < 60 mL/min/1.00n7Ktbmwe Kidney Disease: Estimated GFR < 15 mL/min/1.73m2 Glucose 148(H) 60 - 115 mg/dL [facility] Calcium 8.5 8.4 - 10.2 mg/dL [facility] Bilirubin, Total 0.5 0.0 - 1.0 mg/dL [facility] Aspartate Amino Transferase 23 5 - 37 U/L [facility] Alanine Aminotransferase 27 0 - 40 U/L [facility] Total Protein 6.8 6.5 - 8.0 g/dL [facility] Albumin Level 4.1 3.5 - 5.0 g/dL [facility] Alkaline Phosphatase 73 39 - 117 U/L [facility] 03/18/2025 9:29 AM EDT 03/18/2025 9:32 AM EDT us Generic External Data Provider LAB BLOOD ORDERAB LES Final Result [facility] [address] [place] [phone] * (ABNORMAL) POCT glycosylated hemoglobin (Hgb A1c) (03/13/2025 1:26 PM EDT) Hemoglobin A1C 7.8(A) 4.0 - 5.7 % QC Media Lot # [id number] Lot# Expiration Date Blood Capillary blood specimen / Unknown 03/13/2025 1:26 PM EDT Galo Ramey MD POINT OF CARE TEST EN TER/EDIT ORDERABLES Final Result * TSH with Reflex to Free T4 (02/28/2025 10:04 AM EDT) Pathologist [facility] TSH reflex Free T4 2.05 0.32 - 4.0 uIU/mL [facility] 02/28/2025 10:0 4 AM EDT 02/28/2025 10:04 AM EDT Generic External Data Provider LAB BLOOD ORDERAB LES Final Result Performing Organization Address City/[facility]/ZIP Co de Phone Number [facility] [address] [place] [phone] * Platelet Count (02/28/2025 10:04 AM EDT) Pathologist [facility] Platelet Count 264 160 - 400 X10*3/uL [facility] 02/28/2025 10:0 4 AM EDT 02/28/2025 10:04 AM EDT Generic External Data Provider LAB BLOOD ORDERAB LES Final Result Performing Organization Address City/[facility]/ZIP Co de Phone Number [facility] [address] [place] [phone] * ALT (02/28/2025 10:04 AM EDT) Alanine Aminotransferase 28 0 - 40 U/L [facility] 02/28/2025 10:0 4 AM EDT 02/28/2025 10:04 AM EDT us Generic External Data Provider LAB BLOOD ORDERAB LES Final Result Performing Organization Address City/[facility]/ZIP Co de Phone Number [facility] [address] [place] [phone] * Amylase (02/28/2025 10:04 AM EDT) Amylase 78 28 - 100 U/L [facility] 02/28/2025 10:0 4 AM EDT 02/28/2025 10:04 AM EDT Generic External Data Provider LAB BLOOD ORDERAB LES Final Result Performing Organization Address [facility] de Phone Number [facility] [address] [place] [phone] * (ABNORMAL) Lipid Panel, Standard (02/28/2025 10:04 AM EDT) Triglycerides 187(H) <150 mg/dL [facility] Comment:Desirable Triglyceri de: less than 150 mg/dLBorderline High Triglyceride 150-199 mg/dLHigh Triglyceride: 200-499 mg/dLVery High Triglyceride: greater than or equal to 5OO mg/dL Cholesterol 164 <200 mg/dL [facility] Comment:Desirable Cholestero l: less than 200 mg/dLBorderline High Cholesterol: 200-239 mg/dLHigh Cholesterol: greater than 239 mg/dL LDL Cholesterol Calculated 91 <100 mg/dL [facility] Comment:Desirable LDL: less than 100 mg/dLNear Optimal/Above Optimal LDL: 110- 129 mg/dLBorderline High LDL: 130-159 mg/dLHigh LDL: 160-189 mg/dLVery High LDL: greater than or equal to 190 mg/dL HDL Cholesterol 36(L) >40 mg/dL [facility] Comment:Desirable HDL: great er than 40 mg/dL Note: This HDL assay may give artificially low results in patients with liver disease. 02/28/2025 10:0 4 AM EDT 02/28/2025 10:04 AM EDT Generic External Data Provider LAB BLOOD ORDERAB LES Final Result Performing Organization Address [facility] Co de Phone Number [facility] [address] [place] [phone] * Albumin, Random Urine W/Creatinine (02/28/2025 10:02 AM EDT) Creatinine, Urine 208.62 mg/dL [facility] Microalbumin Urine 26.0 mg/L [facility] Microalbum Creatinine Ratio Ur 12.4 <30 ug/mg cr [facility] Comment:Albumin/Creatinine R atio Reference Ranges: Normal: < 30 ug/mg creatinine Microalbuminuria: 30 - 300 ug/mg creatinineClinical Albuminuria: > 300 ug/mg creatinine 02/28/2025 10:0 2 AM EDT 02/28/2025 10:36 AM EDT Generic External Data Provider LAB URINE ORDERAB LES Final Result Performing Organization Address [facility] Co de Phone Number [facility] [address] [place] [phone] * (ABNORMAL) Glucose, Whole Blood (01/26/2025 1:11 PM EDT) Glucose, Whole Blood 176(H) 60 - 115 mg/dL [facility] Comment:METER #: [id number] 5Testing performed in the Endocrinology Department [address] , [address], [facility]. 01/26/2025 1:11 PM EDT 01/26/2025 1:15 PM EDT Generic External Data Provider LAB BLOOD ORDERAB LES Final Result Performing Organization Address [facility] Co de Phone Number [facility] [address] [place] [phone] * Hepatitis Panel, General (06/07/2024 10:41 AM EDT) Hepatitis A IgM Nonreactive Nonreactive [facility] Comment:IgM antibodies to ALBRECHT V not detected; does not exclude earlyacute or recovered HAV infection. ~Hepatitis B Surface Antibody NONREACTIVE Nonreactive [facility] Comment:Nonreactive: < 8.00 mIU/mL Hepatitis B Core Antibody Nonreactive Nonreactive [facility] Hepatitis C Antibody Nonreactive Nonreactive [facility] Comment:Antibodies to HCV no t detected; does not exclude early acuteHCV infection. Hepatitis B Surface Ag Negative Negative [facility] 06/07/2024 10:4 1 AM EDT 06/07/2024 10:41 AM EDT Generic External Data Provider LAB BLOOD ORDERAB LES Final Result [facility] [address] [place] [phone] * HIV-1/2 Antigen and Antibodies, Fourth Generation, with Reflexes (06/07/2024 10:41 AM EDT) HIV AB/AG Nonreactive Nonreactive [facility] Comment:HIV-1 p24 Ag and/or HIV-1/HIV-2 Ab not detected.A test result that is nonreactive does not exclude thepossibility of exposure to or infection with HIV-1 and/orHIV-2. Nonreactive results in this assay for individualswith prior exposure to HIV-1 and/or HIV-2 may be due toantigen and antibody levels that are below the limit ofdetection of this assay.The [employer] HIV Ag/Ab Combo assay result andsupplemental assay results should be interpreted inconjunction with the patient's clinical presentation,history and other laboratory results. If the results areinconsistent with clinical evidence, additional testing issuggested to confirm the result. Blood Venous blood specimen / Unknown 06/07/2024 10:41 AM EDT 06/07/2024 10:41 AM EDT us Carroll Roberts MD LAB BLOOD ORDERABLES Final Res ult [facility] [address] [place] [phone] * Colonoscopy (07/29/2018) Colonoscopy Normal Normal 07/29/2018 Georgia Orozco - 07/29/2018 1:52 PM EST Recommended 10 year follow up Historical Provider HEALTH MAINTENANCE Final Result from Last 3 Months or Most Recently Relevant to Health Maintenance Insurance [employer] C3 Care Teams Cane Cutter Relationship Specialty Start Date End Date Galo Fang MD [address] [place] [address] PCP - General Internal Medicine 04/04/14
--- OUTSIDE RECORDS SUMMARY | 2025-04-23 15:33 | XMS_ITS | Encounter Summary ---
Author Organization [employer] Address [address] [place] [address] Care Team Providers Care Movie Operator Name Role Phone Galo Fang MD Primary Care Provide r Reason for Visit * Reason Comments Med Refill Encounter Details Date Type Department Care Team ([facility] Contact Info) Description 04/27/2023 Refill [facility] [address] [place] [phone] Carroll Roberts MD [address] [place] [address] [phone] Uncomplicated opioid dependence (CMS/HCC) Social History Tobacco [...] Upcoming Encounters Date Type Department Care Team ([facility] Contact Info) Description 06/22/2025 9:00 AM EST Office Visit [facility] [address] [place] [phone] Carroll Roberts MD [address] [place] [address] [phone] documented as of this encounter Visit Diagnoses Diagnosis Uncomplicated opioid dependence (CMS/HCC) documented in this encounter Care Teams Movie Operator Relationship Specialty Start Date End Date Galo Fang MD [address] [place] [phone] PCP - General Internal Medicine 04/04/14 documented as of this encounter
--- OUTSIDE RECORDS SUMMARY | 2025-04-23 15:33 | XMS_ITS | Encounter Summary ---
Author Organization [facility] Address [address] [place] [address] [address] Care Team Providers Care Director Chemistry Name Role Phone Galo Fang MD Primary Care Provide r Reason for Visit * Reason Comments Med Refill Encounter Details Date Type Department Care Team ([facility] Contact Info) Description 03/02/2023 Refill [facility] [address] [place] [phone] Carroll Roberts MD [address] [place] [address] [phone] Uncomplicated opioid dependence (CMS/HCC) Social History Tobacco [...] Description 06/22/2025 9:00 AM EST Office Visit [facility] [address] [place] [phone] Carroll Roberts MD [address] [place] [address] [phone] documented as of this encounter Visit Diagnoses Diagnosis Uncomplicated opioid dependence (CMS/HCC) documented in this encounter Care Teams Director Chemistry Relationship Specialty Start Date End Date Galo Fang MD [address] [place] [phone] PCP - General Internal Medicine 04/04/14 documented as of this encounter
--- OUTSIDE RECORDS SUMMARY | 2025-04-23 15:33 | XMS_ITS | Encounter Summary ---
Author Organization [employer] Address [address] [facility] [address] [place] [address] Care Team Providers Care Awake Overnight Counselor Name Role Phone Galo Fang MD Primary Care Provide r Reason for Visit * Reason Comments Med Refill Encounter Details Date Type Department Care Team ([facility] st Contact Info) Description 10/08/2023 Refill [facility] [address] [place] [address] Carroll Roberts MD [address] [place], [place] [phone] Uncomplicated opioid dependence (CMS/HCC) Social History Tobacco [...] Description 06/22/2025 9:00 AM EST Office Visit [facility] [address] [place] [phone] Carroll Roberts MD [address] [place] [phone] documented as of this encounter Visit Diagnoses Diagnosis Uncomplicated opioid dependence (CMS/HCC) documented in this encounter Additional Health Concerns Assessment Noted Time PHQ-9 Depression Total Score: 0 07/01/20 23 1:10 PM EST documented as of this encounter Care Teams Awake Overnight Counselor Relationship Specialty Start Date End Date Galo Fang MD [address] [place] [phone] PCP - General Internal Medicine 04/04/14 documented as of this encounter
--- OUTSIDE RECORDS SUMMARY | 2025-04-23 15:33 | XMS_ITS | Encounter Summary ---
Author Organization [employer] Address [address] [place] [address] Care Team Providers Care Supervisor Cook Room Name Role Phone Galo Fang MD Primary Care Provide r Reason for Visit * Reason Comments Med Refill Encounter Details Date Type Department Care Team ([facility] Contact Info) Description 06/22/2023 Refill [facility] MEDICINE [address] [place] [phone] Carroll Roberts MD [address] [place] [address] [phone] Uncomplicated opioid dependence (CMS/HCC) Social History Tobacco [...] Upcoming Encounters Date Type Department Care Team ([facility] Contact Info) Description 06/22/2025 9:00 AM EST Office Visit [facility] MEDICINE [address] [place] [phone] Carroll Roberts MD [address] [place] [address] [phone] documented as of this encounter Visit Diagnoses Diagnosis Uncomplicated opioid dependence (CMS/HCC) documented in this encounter Care Teams Supervisor Cook Room Relationship Specialty Start Date End Date Galo Fang MD [address] [place] [phone] PCP - General Internal Medicine 04/04/14 documented as of this encounter
--- OUTSIDE RECORDS SUMMARY | 2025-04-23 15:33 | XMS_ITS | Encounter Summary ---
Author Organization [employer] Address [address] [facility] 7t [place] [address] Care Team Providers Care Calcine Furnace Loader Name Role Phone Galo Fang MD Primary Care Provide r Reason for Visit * Reason Comments Med Refill Encounter Details Date Type Department Care Team ([facility] st Contact Info) Description 04/20/[address] [facility] [address] [place] [address] [phone] Karuna Covington MD [address] [place] [address] Foreign body sensation, right eye Social History [...] Description 06/22/2025 9:00 AM EST Office Visit [facility] MED[facility] [address] [place] [address] Carroll Roberts MD [address] [place] [address] documented as of this encounter Visit Diagnoses Diagnosis Foreign body sensation, right eye documented in this encounter Additional Health Concerns Assessment Noted Time PHQ-9 Depression Total Score: 0 07/01/20 23 1:10 PM EST documented as of this encounter Care Teams Calcine Furnace Loader Relationship Specialty Start Date End Date Galo Fang MD [address] [place] [address] [phone] PCP - General Internal Medicine 04/04/14 documented as of this encounter
== END 2025-04-23 14:08 | disposition home or self-care (01) ==
LOC: HO.HCS 13:09
PROVIDERS: PCP Internal Medicine; Visit Provider Nurse Practitioner Family
DX: I44.2 Atrioventricular block, complete (principal); Z95.0 Presence of cardiac pacemaker; Z95.2 Presence of prosthetic heart valve; T82.09XA Other mechanical complication of heart valve prosthesis, initial encounter; Z86.79 Personal history of other diseases of the circulatory system; I10 Essential (primary) hypertension; E78.5 Hyperlipidemia, unspecified; I77.89 Other specified disorders of arteries and arterioles
CPT/HCPCS: 93280; 99214

== ENCOUNTER → 2025-04-23 13:09 | Outpatient (BNVA) | payer MEDICAID, SELFPAY | PROVIDERS: PCP Internal Medicine; Visit Provider Nurse Practitioner Family | DX: Z45.010 Encounter for checking and testing of cardiac pacemaker pulse generator [battery] (principal); I44.2 Atrioventricular block, complete; I10 Essential (primary) hypertension; E78.5 Hyperlipidemia, unspecified; I77.89 Other specified disorders of arteries and arterioles | CPT/HCPCS: 93280; 99212 ==

== ENCOUNTER 2025-04-30 13:17 | Outpatient (AMB) | payer MEDICAID, SELFPAY ==
--- NOTE | 2025-04-30 13:20 | MHC.OFFVIS ---
Vital Signs 04/30/25 13:26 Height 5 ft 5 in Weight 222 lb 0.088 oz BMI 36.9 BP 108/68 Blood Pressure Location Lt brachial Position Sitting Pulse 70 Pulse Source Pulse Oximeter Pulse Oximetry (%) 97 Oxygen Delivery Method Room Air Intake Visit Reasons: osteoporosis and diabetes Intake Note: Patient present today to follow up on Type 2 Diabetes Mellitus and Osteoporosis. Last Diabetic Eye exam: August 2024 Last Podiatry Visit: Does not see a Fur Blowing Machine Attendant Random Glucose: 189 mg/dl HgA1C: 8.0% 04/30/2025 Neurology Director Required: Yes Neurology Director Language: Paper Novelty Maker Services: Neurology Director Present Neurology Director Name: [facility] Information Interpreted: non-clinical & clinical Accompanied by: Self / Same As Patient Allergies dulaglutide (From [facility]) Allergy (Mild, Verified 04/30/25 13:26) Diarrhea Medication List - Last Reconciled 04/30/25 by Ahmet Fletcher MD aspirin 81 mg PO DAILY blood sugar diagnostic (FreeStyle Lite Strips) 1 strip miscellaneous TID blood-glucose meter (FreeStyle Lite Meter kit) As directed blood-glucose sensor (FreeStyle Yahaira 3 Plus Sensor device) Apply 1 new sensor every 15 days as directed to monitor blood glucose continuously. blood-glucose,us administrative law judge,cont (FreeStyle Yahaira 3 Cana) Use daily to monitor blood glucose levels continuously. buprenorphine-naloxone 8-2 mg (Suboxone) 1 film sublingual DAILY carvedilol 12.5 mg PO BID empagliflozin (Jardiance) 25 mg PO QAM 30 days insulin degludec (Tresiba FlexTouch U-200 insulin) 76 units (0.38 mL) subcut BEDTIME insulin lispro 12 - 14 units (0.12 - 0.14 mL) subcut TID lancets (FreeStyle Lancets) As directed three time a day omeprazole 20 mg PO DAILY pen needle, diabetic (BD Ultra-Fine Gisella Pen Needle) As directed four times a day tirzepatide (Mounjaro) 7.5 mg (0.5 mL) subcut QWEEK valsartan 80 mg PO BID HPI Comments Details: This is a 64-year-old male with type 2 diabetes diagnosed approximately 10 years ago who presents for management of type 2 diabetes. He has a past medical history of asthma, osteoporosis, coronary artery disease, hyperlipidemia and sleep apnea. For the diabetes, the patient last saw Dai Kraft NP on 01/26/2025 Complications: Neuropathy and coronary artery disease. Past medications: Metformin-GI cramping Reviewed Yahaira 3+ CGM active 20% Average glucose 175 Glucose variability 15.5% Very high 0% High 40% Target range 60% 0% hypoglycemia There is not enough data to assess a 24 hour pattern. Current medications: Tresiba 80 units daily Lispro 12 before breakfast, 14 before lunch and 16 units dinner Mounjaro 7.5 mg weekly Jardiance 25 mg daily not taking because of excessive urination Denies hypoglycemia. Not on a stain for unknown reasons. LDL 106 with goal <70. I contacted his primary care provider's office, but we did not hear back. Has appt with [facility] in 09/2025 Dxed with osteoporosis and compression wedge fx [facility] Medical History Osteoporosis History of cardiomyopathy Prosthetic valve dysfunction BMI 39.0-39.9,adult Cardiomyopathy TAMARA (obstructive sleep apnea) Opioid dependence Hypogonadism Polyarthropathy Erectile dysfunction Nephrolithiasis Depression Esophageal reflux Arthritis Asthma Hyperlipidemia LDL goal <70 Obesity due to excess calories Essential hypertension Type 2 diabetes mellitus with diabetic neuropathy, unspecified Surgical History History of heart valve replacement Hx of umbilical hernia repair Family History Father Heart disease CVD (cardiovascular disease) Mother DM2 (diabetes mellitus, type 2) Social History Household Members: None Unable to assess alcohol history related to: Unknown Alcohol intake: current Alcohol intake frequency: does not drink Patient Tobacco Use Status: Former Tobacco user Current occupational status: disabled Physical Exam Vital Signs: Last Vital Signs Pulse 70 04/30/25 13:26 BP 108/68 04/30/25 13:26 Pulse Ox 97 04/30/25 13:26 Oxygen Delivery Method Room Air 04/30/25 13:26 BMI result Body Mass Index 36.9 Const Other: Absence of Cushingoid features. Absence of acromegalic features. Neck exam reveals nl size thyroid about 15 gms. No thyroid nodules palpable. No carotid bruits present. Heart S1 S2, Reg R/R. No M/R G. Skin exam reveals absence of vitiligo or acanthosis nigricans. No edema Visual exam of foot performed. No ulcerations or open lesions. No inter digit maceration or fissuring. No onychomycosis, no callouses. Sensation intact to monofilament exam. Vibratory sensation is normal with 128 Hz tuning fork. Results AMB Hemoglobin A1c AMB Hemoglobin A1c 8.0 % Last Edit by VIVIANE Mendoza on 04/30/25 13:42 Results Reviewed Results Reviewed: Laboratory Last Values Glucose (Clinic) 189 mg/dL (60-115) H 04/30/25 13:32 Hgb A1c (Clinic) 8.0 % (4.0-6.0) H 04/30/25 13:36 Assessment & Plan Assessment & Plan (1) Type 2 diabetes mellitus with diabetic neuropathy, unspecified: Code(s): E11.40 - Type 2 diabetes mellitus with diabetic neuropathy, unspecified Category: Medical Qualifiers: Diabetes mellitus intermediate insulin use: with oil heaterman use Qualified Code(s): E11.40 - Type 2 diabetes mellitus with diabetic neuropathy, unspecified; Z79.4 - [facility] (current) use of insulin Plan: This 63-year-old male with a history of type 2 diabetes being treated with Mounjaro Jardiance and basal-bolus insulin with fair worsening glycemic control and known microvascular and macrovascular complications namely coronary artery disease and neuropathy. Plan is to have the patient wear the Yahaira more frequently we will can convert to a Yahaira 3+. Could not make any adjustments to insulin regimen because of lack of data today. Did go over correlation of poor glycemic control to development of progression of complications with the help of mouse breeder (2) Osteoporosis: Code(s): M81.0 - Age-related osteoporosis without current pathological fracture Category: Medical Plan: Patient never completed the secondary workup that was ordered by Norah Dodd NP. T-score of -2.8 in the lumbar spine with a wedge compression fracture Will have patient go for secondary workup including measuring testosterone an a.m. fasting, phosphorus, urine immunofixation, 25 hydroxy vitamin-D. We will have patient take 1200 mg of calcium as well as vitamin D3 2000 IU/day. Once secondary workup was complete could consider use of anabolic agent like Forteo or Tymlos Orders: Orders AMB Hemoglobin A1c Today E11.40 - Type 2 diabetes mellitus with diabetic neuropathy, unspecified, Z79.4 - [facility] (current) use of insulin Calcium, 24 Hr Ur Today M81.0 - Age-related osteoporosis without current pathological fracture Testosterone, Free/Total Today M81.0 - Age-related osteoporosis without current pathological fracture Phosphorus Today M81.0 - Age-related osteoporosis without current pathological fracture Creatinine, 24 Hr Group Today M81.0 - Age-related osteoporosis without current pathological fracture Vitamin D 25-OH Total Today M81.0 - Age-related osteoporosis without current pathological fracture Immunofixation, Random Urine Today M81.0 - Age-related osteoporosis without current pathological fracture Medications: New cholecalciferol (vitamin D3) 50 mcg PO DAILY 30 caps 4RF Coding Level of Care Code Est Pt Level 4 (42319) Diagnoses Type 2 diabetes mellitus with diabetic neuropathy, with long-term current use of insulin E11.40; Z79.4 Diabetes mellitus intermediate insulin use: with intermediate use Osteoporosis M81.0
[2025-04-30 13:26] VITALS: BP 108/68; PULSE 70; O2SAT 97; BMI 36.9
[2025-04-30 13:37] LABS: Glucose, Whole Blood 189 mg/dL (60-115)
--- OUTSIDE RECORDS SUMMARY | 2025-04-30 18:24 | XMS_ITS | Encounter Summary ---
Author Organization [employer] Address [address] [place] [address] [place] [address] Care Team Providers Care Women'S Studies Lecturer Name Role Phone Galo Fang MD Primary Care Provide r Reason for Visit * Reason Comments Med Refill Encounter Details Date Type Department Care Team (Late Contact Info) Description 11/12/2022 Refill [facility] [address] [place] [phone] Galo Fang MD [address] [place] [address] [phone] Gastroesophageal reflux disease, unspecified whether esophagitis present [...] Description 06/22/2025 9:00 AM EST Office Visit [facility] MEDICINE [address] [place] [address] 0[address]36 Carroll Roberts MD [address] [place] [address] [phone] 07/10/2025 10:00 AM EST Office Visit [facility] MEDICINE [address] [place] [address] 47907 Galo Fang MD [address] [place], [place] [phone] 09/21/2025 11:00 AM EST Office Visit [facility] OPTOMETRY [address] [place], [place] [phone] Pat Bates, OD [address] [place] [address] documented as of this encounter Visit Diagnoses Diagnosis Gastroesophageal reflux disease, unspecified whether esophagitis present documented in this encounter Care Teams Women'S Studies Lecturer Relationship Specialty Start Date End Date Galo Fang MD [address] [place], [place] [phone] PCP - General Internal Medicine 04/04/14 documented as of this encounter
--- OUTSIDE RECORDS SUMMARY | 2025-04-30 18:24 | XMS_ITS | Encounter Summary ---
Author Organization [employer] Address [address] [place] [address] 7 [place] [address] Care Team Providers Care Swimming Pool Service Technician Name Role Phone Galo Fang MD Primary Care Provide r Reason for Visit * Reason Comments Med Refill Encounter Details Date Type Department Care Team (Late Contact Info) Description 11/07/2022 Refill [facility] MEDICINE [address] [place] [address] 48031 Carroll Roberts MD [address] [place] [address] [phone] Uncomplicated opioid dependence (CMS/HCC) Social History Tobacco [...] Description 06/22/2025 9:00 AM EST Office Visit [facility] MEDICINE [address] [place] [address] 42417 Carroll Roberts MD [address] [place] [address] [phone] 07/10/2025 10:00 AM EST Office Visit [facility] MEDICINE [address] [place] [address] [phone] Galo Fang MD [address] [place] [address] [phone] 09/21/2025 11:00 AM EST Office Visit [facility] OPTOMETRY [address] [place], [place] [phone] Pat Bates, OD [address] [place] [address] documented as of this encounter Visit Diagnoses Diagnosis Uncomplicated opioid dependence (CMS/HCC) documented in this encounter Care Teams Swimming Pool Service Technician Relationship Specialty Start Date End Date Galo Fang MD 230 [place], [place] [phone] PCP - General Internal Medicine 04/04/14 documented as of this encounter
--- OUTSIDE RECORDS SUMMARY | 2025-04-30 18:24 | XMS_ITS | Encounter Summary ---
Author Organization [employer] Address [address] [facility] 7t [place] [address] Care Team Providers Care Hand Splitter Name Role Phone Galo Fang MD Primary Care Provide r Reason for Visit * Reason Comments Med Refill Encounter Details Date Type Department Care Team ([facility] st Contact Info) Description 09/08/2024 Refill [facility] MEDICINE [address] [place] [address] Carroll Roberts MD [address] [place], [place] [phone] Uncomplicated opioid dependence (CMS/HCC) Social History Tobacco [...] Office Visit [facility] MEDICINE [address] [place] [address] Carroll Roberts MD [address] [place] [address] 07/10/2025 10:00 AM EST Office Visit [facility] MEDICINE [address] [place] [address] Galo Fang MD [address] [place] [address] 09/21/2025 11:00 AM EST Office Visit [facility] OPTOMETRY [address] [place] [address] Pat Bates, OD [address] [place] [address] documented as of this encounter Visit Diagnoses Diagnosis Uncomplicated opioid dependence (CMS/HCC) documented in this encounter Additional Health Concerns Assessment Noted Time PHQ-9 Depression Total Score: 0 05/26/20 24 9:56 AM EDT documented as of this encounter Care Teams Hand Splitter Relationship Specialty Start Date End Date Galo Fang MD [address] [place] [address] PCP - General Internal Medicine 04/04/14 documented as of this encounter
--- OUTSIDE RECORDS SUMMARY | 2025-04-30 18:24 | XMS_ITS | Encounter Summary ---
Author Organization [employer] Address [address] [place] [address] 7t [place] [address] Care Team Providers Care Corncob Pipe Supervisor Name Role Phone Galo Fang MD Primary Care Provide r Reason for Visit * Reason Onset Date Comments Med Refill TP 01/02/2023 Encounter Details Date Type Department Care Team (Late st Contact Info) Description 01/02/2023 Telephone [facility] MEDICINE [address] [place] [address] [phone] Carroll Roberts MD [address] [place], [place] [phone] Med Refill; TP Social History Tobacco Use [...] Description 06/22/2025 9:00 AM EST Office Visit [facility] MEDICINE [address] [place] [address] Carroll Roberts MD [address] [place] [address] 07/10/2025 10:00 AM EST Office Visit [facility] MEDICINE [address] [place] [address] Galo Fang MD [address] [place] [address] 09/21/2025 11:00 AM EST Office Visit [facility] OPTOMETRY [address] [place] [address] Pat Bates, OD [address] [place] [address] documented as of this encounter Visit Diagnoses Diagnosis Uncomplicated opioid dependence (CMS/HCC) documented in this encounter Care Teams Corncob Pipe Supervisor Relationship Specialty Start Date End Date Galo Fang MD [address] [place] [phone] PCP - General Internal Medicine 04/04/14 documented as of this encounter
--- OUTSIDE RECORDS SUMMARY | 2025-04-30 18:24 | XMS_ITS | Encounter Summary ---
Author Organization [employer] Address [address] [facility] 7t [place] [address] Care Team Providers Care Summer School Coordinator Name Role Phone Galo Fang MD Primary Care Provide r Reason for Visit * Reason Onset Date Comments June recall 04/30/2025 Encounter Details Date Type Department Care Team ([facility] st Contact Info) Description 04/30/2025 Telephone [facility] MEDICINE [address] [place], [place] [phone] Galo Fang MD [address] [place], [place] [phone] June recall Social History Tobacco Use Types Packs/Day Years [...] encounter Miscellaneous Notes * Telephone Encounter - Angie España MA - 04/30/2025 11:32 AM EDT Telephone call to patient to schedule the following recall: Visit type: Office visit Appointment notes: DM Patient agree to appointment on 07/10/25 at 10:00 AM with Kenney. documented in this encounter Plan of Treatment Upcoming Encounters Date Type Department Care Team (Late st Contact Info) Description 06/22/2025 9:00 AM EST Office Visit [facility] MEDICINE [address] [place] [address] Carroll Roberts MD [address] [place] [address] 07/10/2025 10:00 AM EST Office Visit [facility] MEDICINE [address] [place] [address] Galo Fang MD [address] [place] [address] 09/21/2025 11:00 AM EST Office Visit [facility] OPTOMETRY [address] [place] [address] Pat Bates, OD [address] [place] [address] documented as of this encounter Goals Goal Patient Goal Type Associated Problems Recent Progress Patient-Stated? Author Increase coping skills to promote long-term recovery and improve ability to perform daily activities General On track( 025 9:26 AM EDT) Frieda Trevino RN documented as of this encounter Visit Diagnoses Not on filedocumented in this encounter Additional Health Concerns Assessment Noted Time PHQ-9 Depression Total Score: 0 04/10/20 25 8:59 AM EDT documented as of this encounter Care Teams Summer School Coordinator Relationship Specialty Start Date End Date Galo Fang MD [address] [place] [address] PCP - General Internal Medicine 04/04/14 documented as of this encounter
--- OUTSIDE RECORDS SUMMARY | 2025-04-30 18:24 | XMS_ITS | Encounter Summary ---
Author Organization [employer] Address [address] [facility] 7t [place] [address] Care Team Providers Care Provider Relations Representative Name Role Phone Galo Fang MD Primary Care Provide r Encounter Details Date Type Department Care Team ([facility] Contact Info) Description 04/30/2025 Orders Only GENERIC EXTERNAL DATA DEPARTMENT Provider, [...] Description 06/22/2025 9:00 AM EST Office Visit [facility] MEDICINE [address] [place] [address] Carroll Roberts MD [address] [place] [address] 07/10/2025 10:00 AM EST Office Visit [facility] MEDICINE [address] [place] [address] Galo Fang MD [address] [place] [address] 09/21/2025 11:00 AM EST Office Visit [facility] OPTOMETRY [address] [place] [address] Pat Bates, OD [address] [place] [address] documented as of this encounter Goals Goal Patient Goal Type Associated Problems Recent Progress Patient-Stated? Author Increase coping skills to promote long-term recovery and improve ability to perform daily activities General On track( 025 9:26 AM EDT) Frieda Trevino RN documented as of this encounter Procedures Procedure Name Priority Date/Time Associated Diagnosis Comments GLUCOSE, WHOLE BLOOD Routine 04/30/2025 1:32 PM EDT documented in this encounter Results * (ABNORMAL) Glucose, Whole Blood (04/30/2025 1:32 PM EDT) Glucose, Whole Blood 189(H) 60 - 115 mg/dL [facility] Comment:METER #: [id number] 0Testing performed in the Endocrinology Department [address] , [address], [facility]. 04/30/2025 1:32 PM EDT 04/30/2025 1:36 PM EDT us Generic External Data Provider LAB BLOOD ORDERAB LES Final Result [facility] [address] [place] [address] [phone] documented in this encounter Visit Diagnoses Not on filedocumented in this encounter Additional Health Concerns Assessment Noted Time PHQ-9 Depression Total Score: 0 04/10/20 8:59 AM EDT documented as of this encounter Care Teams Provider Relations Representative Relationship Specialty Start Date End Date Galo Fang MD [address] [place] [address] PCP - General Internal Medicine 04/04/14 documented as of this encounter
--- OUTSIDE RECORDS SUMMARY | 2025-04-30 18:25 | XMS_ITS | Encounter Summary ---
Author Organization [employer] Address [address] [facility] 7t [place] [address] Care Team Providers Care Substance Addiction Coordinator Name Role Phone Galo Fang MD Primary Care Provide r Reason for Visit * Reason Comments Med Refill Encounter Details Date Type Department Care Team ([facility] st Contact Info) Description 04/20/2024 Refill [facility] [address] [place], [place] [phone] Jocelyn Cruz FNP [address] [place] [address] Social History Tobacco Use Types Packs/Day Years [...] Description 06/22/2025 9:00 AM EST Office Visit [facility] MEDICINE [address] [place] [address] Carroll Roberts MD [address] [place] [address] 07/10/2025 10:00 AM EST Office Visit [facility] MEDICINE [address] [place] [address] Galo Fang MD [address] [place] [address] 09/21/2025 11:00 AM EST Office Visit [facility] OPTOMETRY [address] [place] [address] Paulo, Pat, OD [address] [place] [address] documented as of this encounter Visit Diagnoses Not on filedocumented in this encounter Additional Health Concerns Assessment Noted Time PHQ-9 Depression Total Score: 0 07/01/20 23 1:10 PM EST documented as of this encounter Care Teams Substance Addiction Coordinator Relationship Specialty Start Date End Date Galo Fang MD [address] [place] [phone] PCP - General Internal Medicine 04/04/14 documented as of this encounter
--- OUTSIDE RECORDS SUMMARY | 2025-04-30 18:25 | XMS_ITS | Encounter Summary ---
Author Organization [employer] Address [address] [place] [address] 7[place], [place] [address] Care Team Providers Care Machine Room Engineer Name Role Phone Galo Fang MD Primary Care Provide r Reason for Visit * Reason Comments Med Refill Encounter Details Date Type Department Care Team ([facility] Contact Info) Description 04/27/2023 Refill [facility] MEDICINE [address] [place] [phone] Carroll Roberts MD [address] [place] [address] [phone] Uncomplicated opioid dependence (CMS/HCC) Social History Tobacco [...] Description 06/22/2025 9:00 AM EST Office Visit [facility] MEDICINE [address] [place] [address] 14833 Carroll Roberts MD [address] [place] [address] 07/10/2025 10:00 AM EST Office Visit [facility] MEDIC[facility] [address] [place] [address] 15759 Galo Fang MD [address] [place] [address] [phone] 09/21/2025 11:00 AM EST Office Visit [facility] OPTOMETRY [address] [place], [place] [phone] Pat Bates, OD [address] [place], [place] [phone] documented as of this encounter Visit Diagnoses Diagnosis Uncomplicated opioid dependence (CMS/HCC) documented in this encounter Care Teams Machine Room Engineer Relationship Specialty Start Date End Date Galo Fang MD [address] [place], [place] [phone] PCP - General Internal Medicine 04/04/14 documented as of this encounter
--- OUTSIDE RECORDS SUMMARY | 2025-04-30 18:25 | XMS_ITS | Encounter Summary ---
Author Organization [employer] Address [address] [facility] 7t [place] [address] Care Team Providers Care Strip Picker Name Role Phone Galo Fang MD Primary Care Provide r Reason for Visit * Reason Comments Med Refill Encounter Details Date Type Department Care Team ([facility] st Contact Info) Description 10/08/2023 Refill [facility] [address] [place] [address] Carroll Roberts MD [address] [place], [place] [phone] Uncomplicated opioid dependence (CMS/HCC) Social History Tobacco [...] 9:00 AM EST Office Visit [facility] [address] [place] [address] Carroll Roberts MD [address] [place] [address] 07/10/2025 10:00 AM EST Office Visit [facility] [address] [place] [address] Galo Fang MD [address] [place] [address] 09/21/2025 11:00 AM EST Office Visit [facility] [address] [place] [address] Paulo, Pat, OD [address] [place] [address] documented as of this encounter Visit Diagnoses Diagnosis Uncomplicated opioid dependence (CMS/HCC) documented in this encounter Additional Health Concerns Assessment Noted Time PHQ-9 Depression Total Score: 0 07/01/20 23 1:10 PM EST documented as of this encounter Care Teams Strip Picker Relationship Specialty Start Date End Date Galo Fang MD [address] [place] [phone] PCP - General Internal Medicine 04/04/14 documented as of this encounter
--- OUTSIDE RECORDS SUMMARY | 2025-04-30 18:25 | XMS_ITS | Encounter Summary ---
Author Organization [employer] Address [address] [facility] 7t [place] [address] Care Team Providers Care Creative Services Intern Name Role Phone Galo Fang MD Primary Care Provide r Reason for Visit * Reason Onset Date Comments Med Refill 12/29/2024 Encounter Details Date Type Department Care Team (Late st Contact Info) Description 12/29/2024 Refill [facility] [address] [place] [address] 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 RN Uncomplicated opioid dependence (CMS/HCC) [...] t he electric, gas, oil or water [facility] threatened to shut off services in your [...] [facility] [address] [place] [address] Carroll Roberts MD [address] [place] [address] 07/10/2025 10:00 AM EST Office Visit [facility] [address] [place] [address] Galo Fang MD [address] [place] [address] 09/21/2025 11:00 AM EST Office Visit [facility] [address] [place] [address] Pat Bates, OD [address] [place] [address] documented as of this encounter Goals Goal [...] documented as of this encounter Care Teams Creative Services Intern Relationship Specialty Start Date End Date Galo Fang MD [address] [place] [address] PCP - General Internal Medicine 04/04/14 documented as of this encounter
--- OUTSIDE RECORDS SUMMARY | 2025-04-30 18:25 | XMS_ITS | Encounter Summary ---
Author Organization [employer] Address [address] [facility] 7t [place] [address] Care Team Providers Care Brilliandeer Looper Name Role Phone Galo Fang MD Primary Care Provide r Reason for Visit * Reason Comments Med Refill Encounter Details Date Type Department Care Team ([facility] st Contact Info) Description 01/28/2024 Refill [facility] [address] [place] [address] Carroll Roberts MD [address] [place], [place] [phone] Uncomplicated opioid dependence (CMS/HCC) Social History Tobacco [...] 06/22/2025 9:00 AM EST Office Visit [facility] [address] [place] [address] Carroll Roberts MD [address] [place] [address] 07/10/2025 10:00 AM EST Office Visit [facility] [address] [place] [address] Galo Fang MD [address] [place] [address] 09/21/2025 11:00 AM EST Office Visit [facility] [address] [place] [address] Paulo, Pat, OD 230 [place] [address] documented as of this encounter Visit Diagnoses Diagnosis Uncomplicated opioid dependence (CMS/HCC) documented in this encounter Additional Health Concerns Assessment Noted Time PHQ-9 Depression Total Score: 0 07/01/20 23 1:10 PM EST documented as of this encounter Care Teams Brilliandeer Looper Relationship Specialty Start Date End Date Galo Fang MD [address] [place] [address] PCP - General Internal Medicine 04/04/14 documented as of this encounter
--- OUTSIDE RECORDS SUMMARY | 2025-04-30 18:25 | XMS_ITS | Encounter Summary ---
Author Organization [employer] Address [address] [place] [address] [place], [place] [address] Care Team Providers Care Electrical Prospecting Operator Name Role Phone Galo Fang MD Primary Care Provide r Reason for Visit * Reason Comments Med Refill Encounter Details Date Type Department Care Team ([facility] Contact Info) Description 06/22/2023 Refill [facility] [address] [place] [phone] Carroll Roberts MD [address] [place] [address] [phone] Uncomplicated opioid dependence (CMS/HCC) Social History Tobacco [...] 9:00 AM EST Office Visit [facility] [address] [place] [address] Carroll Roberts MD [address] [place] [address] 07/10/2025 10:00 AM EST Office Visit [facility] [address] [place] [address] Galo Fang MD [address] [place] [address] [phone] 09/21/2025 11:00 AM EST Office Visit [facility] [address] [place], [place] [phone] Pat Bates, OD 230 [place], [place] [phone] documented as of this encounter Visit Diagnoses Diagnosis Uncomplicated opioid dependence (CMS/HCC) documented in this encounter Care Teams Electrical Prospecting Operator Relationship Specialty Start Date End Date Galo Fang MD 230 [place], [place] [phone] PCP - General Internal Medicine 04/04/14 documented as of this encounter
--- OUTSIDE RECORDS SUMMARY | 2025-04-30 18:25 | XMS_ITS | Patient Health Record ---
Author Organization [facility] Address [address] [place] [address] Care Team Providers Care Inspector Bullet Slugs Name Role Phone Ahmet Abbasi Unavailable [phone] Reason For Referral No Information Plan Of Treatment No Information
--- OUTSIDE RECORDS SUMMARY | 2025-04-30 18:25 | XMS_ITS | Encounter Summary ---
Author Organization [employer] Address [address] [place] [address] [address] [place] [address] Care Team Providers Care Legal Manager Name Role Phone Galo Fang MD Primary Care Provide r Encounter Details Date Type Department Care Team (Late Contact Info) Description 06/14/2023 Abstract [facility] [address] [place] [address] Galo Fang MD [address] [place] [address] [phone] Social History Tobacco Use Types Packs/Day Years [...] Description 06/22/2025 9:00 AM EST Office Visit [facility] [address] [place] [address] Carroll Roberts MD [address] [place] [address] [phone] 07/10/2025 10:00 AM EST Office Visit [facility] [address] [place] [address] Galo Fang MD [address] [place] [address] [phone] 09/21/2025 11:00 AM EST Office Visit [facility] [address] [place] [address] Pat Bates, OD 230 [place] [address] documented as of this encounter Procedures Procedure Name Priority Date/Time Associated Diagnosis Comments COLONOSCOPY Routine 07/29/2018 COLONOSCOPY Routine 03/16/2013 documented in this encounter Results * Colonoscopy (07/29/2018) Colonoscopy Normal Normal Historical Provider HEALTH MAINTENANCE Edited Result - Final * Colonoscopy (03/16/2013) Colonoscopy Normal Normal Narrative Georgia Rubio - 03/16/2013 Recommended 10 year follow up Historical Provider HEALTH MAINTENANCE Final Result documented in this encounter Visit Diagnoses Not on filedocumented in this encounter Care Teams Legal Manager Relationship Specialty Start Date End Date Galo Fang MD [address] [place] [address] PCP - General Internal Medicine 04/04/14 documented as of this encounter
--- OUTSIDE RECORDS SUMMARY | 2025-04-30 18:25 | XMS_ITS | Encounter Summary ---
Author Organization [employer] Address [address] [facility] 7t [place] [address] Care Team Providers Care Manager Talent Management Name Role Phone Galo Fang MD Primary Care Provide r Reason for Visit * Reason Comments Med Refill Encounter Details Date Type Department Care Team ([facility] st Contact Info) Description 12/03/2023 Refill [facility] [address] [place] [address] Carroll Roberts MD [address] [place], [place] [phone] Uncomplicated opioid dependence (CMS/HCC) Social History Tobacco [...] 9:00 AM EST Office Visit [facility] [address] [place] [address] Carroll Roberts MD [address] [place] [address] 07/10/2025 10:00 AM EST Office Visit [facility] [address] [place] [address] Galo Fang MD [address] [place] [address] 09/21/2025 11:00 AM EST Office Visit [facility] [address] [place] [address] Paulo, Pat, OD [address] [place] [address] documented as of this encounter Visit Diagnoses Diagnosis Uncomplicated opioid dependence (CMS/HCC) documented in this encounter Additional Health Concerns Assessment Noted Time PHQ-9 Depression Total Score: 0 07/01/20 23 1:10 PM EST documented as of this encounter Care Teams Manager Talent Management Relationship Specialty Start Date End Date Galo Fang MD [address] [place] [phone] PCP - General Internal Medicine 04/04/14 documented as of this encounter
--- OUTSIDE RECORDS SUMMARY | 2025-04-30 18:25 | XMS_ITS | Encounter Summary ---
Author Organization [employer] Address [address] [place] [address] 7 [place] [address] Care Team Providers Care 21 Dealer Name Role Phone Galo Fang MD Primary Care Provide r Reason for Visit * Reason Comments Med Refill Encounter Details Date Type Department Care Team (Late Contact Info) Description 11/03/2022 Refill [facility] [address] [place] [address] Jess Barriga MD [address] [place] [phone] Mild intermittent asthma without complication Social History [...] Description 06/22/2025 9:00 AM EST Office Visit [facility] [address] [place] [address] Carroll Roberts MD [address] [place] [address] [phone] 07/10/2025 10:00 AM EST Office Visit [facility] [address] [place] [address] Galo Fang MD [address] [place] [address] [phone] 09/21/2025 11:00 AM EST Office Visit [facility] [address] [place], [place] [phone] Pat Bates, OD [address] [place], [place] [phone] documented as of this encounter Visit Diagnoses Diagnosis Mild intermittent asthma without complication documented in this encounter Care Teams 21 Dealer Relationship Specialty Start Date End Date Galo Fang MD 230 [place], [place] [phone] PCP - General Internal Medicine 04/04/14 documented as of this encounter
--- OUTSIDE RECORDS SUMMARY | 2025-04-30 18:25 | XMS_ITS | Encounter Summary ---
Author Organization [employer] Address [address] [place] [address] [address] [place] [address] Care Team Providers Care Director Distribution Name Role Phone Galo Fang MD Primary Care Provide r Reason for Visit * Reason Comments Med Refill Encounter Details Date Type Department Care Team (Late Contact Info) Description 03/02/2023 Refill [facility] [address] [place] [phone] Carroll Roberts MD [address] [place] [address] [phone] Uncomplicated opioid dependence (CMS/HCC) Social History Tobacco [...] AM EST Office Visit [facility] [address] [place] [address] Carroll Roberts MD [address] [place] [address] [phone] 07/10/2025 10:00 AM EST Office Visit [facility] [address] [place] [address] Galo Fang MD [address] [place] [address] [phone] 09/21/2025 11:00 AM EST Office Visit [facility] [address] [place], [place] [phone] Pat Bates, OD [address] [place] [address] documented as of this encounter Visit Diagnoses Diagnosis Uncomplicated opioid dependence (CMS/HCC) documented in this encounter Care Teams Director Distribution Relationship Specialty Start Date End Date Galo Fang MD 230 [place], [place] [phone] PCP - General Internal Medicine 04/04/14 documented as of this encounter
--- OUTSIDE RECORDS SUMMARY | 2025-04-30 18:25 | XMS_ITS | Encounter Summary ---
Author Organization [employer] Address [address] [facility] 7t [place] [address] Care Team Providers Care Leather Sprayer Name Role Phone Galo Fang MD Primary Care Provide r Reason for Visit * Reason Comments Med Refill Encounter Details Date Type Department Care Team ([facility] st Contact Info) Description 12/23/2023 Refill [facility] [address] [place], [place] [phone] Carroll Roberts MD [address] [place], [place] [phone] Constipation, unspecified constipation type Social History Tobacco [...] Description 06/22/2025 9:00 AM EST Office Visit [facility] [address] [place] [address] Carroll Roberts MD [address] [place] [address] 07/10/2025 10:00 AM EST Office Visit [facility] [address] [place] [address] Galo Fang MD [address] [place] [address] 09/21/2025 11:00 AM EST Office Visit [facility] [address] [place] [address] Paulo, Pat, OD 230 [place] [address] documented as of this encounter Visit Diagnoses Diagnosis Constipation, unspecified constipation type documented in this encounter Additional Health Concerns Assessment Noted Time PHQ-9 Depression Total Score: 0 07/01/20 23 1:10 PM EST documented as of this encounter Care Teams Leather Sprayer Relationship Specialty Start Date End Date Galo Fang MD [address] [place] [phone] PCP - General Internal Medicine 04/04/14 documented as of this encounter
--- OUTSIDE RECORDS SUMMARY | 2025-04-30 18:25 | XMS_ITS | Encounter Summary ---
Author Organization [employer] Address [address] [place] [address] [address] [place] [address] Care Team Providers Care Agency Sales Director Name Role Phone Galo Fang MD Primary Care Provide r Encounter Details Date Type Department Care Team (Late st Contact Info) Description 12/23/2022 Abstract [facility] [address] [place] [address] Galo Fang MD [address] [place] [address] [phone] Social History Tobacco Use Types Packs/Day Years [...] EST Office Visit [facility] [address] [place] [address] Carroll Roberts MD [address] [place] [address] 07/10/2025 10:00 AM EST Office Visit [facility] [address] [place] [address] Galo Fang MD [address] [place] [address] [phone] 09/21/2025 11:00 AM EST Office Visit [facility] [address] [place] [address] Pat Bates, OD 230 [place] [address] documented as of this encounter Procedures Procedure Name Priority Date/Time Associated Diagnosis Comments COLONOSCOPY Routine 07/29/2018 documented in this encounter Results * Hm Colonoscopy (07/29/2018) Colonoscopy Normal Normal 07/29/2018 Narrative Georgia Rubio - 07/29/2018 1:52 PM EST Recommended 10 year follow up Historical Provider HEALTH MAINTENANCE Final Result documented in this encounter Visit Diagnoses Not on filedocumented in this encounter Care Teams Agency Sales Director Relationship Specialty Start Date End Date Galo Fang MD 230 [place] [address] PCP - General Internal Medicine 04/04/14 documented as of this encounter
--- OUTSIDE RECORDS SUMMARY | 2025-04-30 18:25 | XMS_ITS | Clinical Summary ---
Author Organization [employer] Address [address] [facility] [address] [place] [address] Care Team Providers Care Search Coordinator Name Role Phone Galo Fnag MD Primary Care Provide r Allergies Active [...] 2 WEEKS 023 Active Continuous Blood Gluc Bank Consultant (FreeStyle Yahaira 2 Harlan) device USE DIRECTED 023 Active FREESTYLE LITE [...] polyneuropathy, with long-term current use of insulin ([facility]) Take 1 tablet (20 mg) by mouth [...] here for a HDF Ad[place] [facility] [place] after he presented with c/o [...] acute bony abnormality. Pt was seen by [facility] 05/17/2024 work up in progress Assessment & [...] and L1-L2 levels. Under the care of [facility] pain Management, they recommended PT and if [...] LS Spine, right [facility] Assessment & Plan (04/06/2023 1:21 PM EDT): [...] 09/05/2024 : Normal, Colonoscopy: 07/29/2018 [place] [facility] [place]iculosis Assessment & Plan (09/12/2024 9:25 AM EST): PSA 04/06/2023 : Normal, repeat ordered Colonoscopy: 07/29/2018 at [facility] diverticulosis Assessment & Plan (07/01/2023 1:02 PM EST): PSA 04/06/2023 : Normal Colonoscopy: 07/29/2018 [place] [facility] [place] Assessment & Plan (04/06/2023 1:22 PM EDT): Colonoscopy: 07/29/2018 at [facility] [place] Aortic valve stenosis 07/17/2022 Assessment & [...] exam was last done by Dr. Littlejohn (machine deicer element winder) No diabetic retinopathy. 07/31/2024 Microalbumin checked on: 11/29/2023 was: 7 Pt is on ARB (lisinopril caused him itchy throat and ? angioedema ? ) . Foot check risk of zero Pt reports compliance with Asa 81 mg po daily Plan: As per Stoner Out Pt advised to: adhere to diabetic diet [...] exam was last done by Dr. Littlejohn (machine deicer element winder) No diabetic retinopathy. 07/31/2024 Microalbumin checked on: 11/29/2023 was: 7 Pt is on ARB (lisinopril caused him itchy throat and ? angioedema ? ) . Foot check risk of zero Pt reports compliance with Asa 81 mg po daily Plan: As per Stoner Out Pt advised to: adhere to diabetic diet [...] exam was last done by Dr. Littlejohn (machine deicer element winder) No diabetic retinopathy. 07/31/2024 Microalbumin checked on: 11/29/2023 was: 7 Pt is on ARB (lisinopril caused him itchy throat and ? angioedema ? ) . Foot check risk of zero Pt reports compliance with Asa 81 mg po daily Plan: as per Stoner Out Pt advised to: adhere to diabetic diet [...] exam was last done by Dr. Littlejohn (machine deicer element winder) No diabetic retinopathy. Microalbumin checked on: 11/29/2023 was: 7 Pt is no longer on an WALDEMAR inhibitor. (lisinopril caused him itchy throat and ? angioedema ? ) . Foot check risk of zero Pt reports compliance with Asa 81 mg po daily Plan: as per Stoner Out Pt advised to: adhere to diabetic diet check your blood sugars regularly check your feet on a daily basis f/u 4 months Assessment & Plan (11/09/2023 2:31 PM EDT): Patient is here for a f/u Under the care of Endocrinology ( Dr Fltecher ) He is on a regimen of: [...] exam was last done by Dr. Littlejohn (machine deicer element winder) No diabetic retinopathy. Microalbumin checked on: 01/14/2021 was: 22 Pt is no longer on an WALDEMAR inhibitor. (lisinopril caused him itchy throat and ? angioedema ? ) . Foot check risk of zero Pt reports compliance with Asa 81 mg po daily Plan: as per Stoner Out Pt advised to: adhere to diabetic diet [...] exam was last done by Dr. Littlejohn (machine deicer element winder) No diabetic retinopathy. Microalbumin checked on: 01/14/2021 was: 22 Pt is no longer on an WALDEMAR inhibitor. (lisinopril caused him itchy throat and ? angioedema ? ) . Will repeat Foot check risk of zero Pt reports compliance with Asa 81 mg po daily Plan: as per Stoner Out Pt advised to: adhere to diabetic diet [...] exam was last done by Dr. Littlejohn (machine deicer element winder) No diabetic retinopathy. Microalbumin checked on: 01/14/2021 was: 22 Pt is no longer on an WALDEMAR inhibitor. (lisinopril caused him itchy throat and ? angioedema ? 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 pet who he attributes the fact that [...] Encounters Date Type Department Care Team Description 04/30/2025 Orders Only GENERIC EXTERNAL DATA DEPARTMENT Provider, Generic External Data 04/30/2025 Telephone [facility] MEDICINE [address] [place] [address] Galo Fang MD June04/24/2025 Travel 04/16/2025 Refill [facility] MEDICINE [address] [place] [address] Gaol Fang MD Gastroesophageal reflux disease without esophagitis 04/11/2025 Refill [facility] MEDICINE [address], [place] [address] Galo Fang MD 04/10/2025 9:30 AM EDT Office Visit [facility] [place] [address] Galo Fang MD Hospital discharge follow-up (Primary Dx); Type 2 diabetes mellitus with diabetic polyneuropathy, with long-term current use of insulin ([facility]); Essential hypertension; History of aortic valve replacement 04/10/2025 Travel 04/09/2025 Telephone [facility] MEDICINE [address] [place] [address] Galo Fang MD CHART PREP 03/30/2025 9:00 AM EDT Clinical Support [facility] [place] [address] 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, GULSHAN Opioid use disorder in remission 03/30/2025 Travel 03/23/2025 Refill [facility] [place] [address] Deidre Anton RN Opioid use disorder in remission 03/22/2025 Patient Outreach [facility] MEDICINE [address], [place] [address] Galo Fang MD Transition Of Care (Tcm) (HDF scheduled) 03/18/2025 Orders Only GENERIC EXTERNAL DATA DEPARTMENT Provider, Generic External Data 03/16/2025 Refill [facility] [place] [address] Galo Fang MD 03/13/2025 1:15 PM EDT Office Visit [facility] [place] [address] Galo Fang MD Type 2 diabetes mellitus with diabetic polyneuropathy, with long-term current use of insulin ([facility]) (Primary Dx); Essential hypertension; Mixed hyperlipidemia; History of aortic valve replacement; Class 2 severe obesity due to excess calories with serious comorbidity and body mass index (BMI) of 35.0 to 35.9 in adult (CMS/HCC); Dietary counseling; Exercise counseling; Preventative health care; Erectile dysfunction due to diseases classified elsewhere 03/13/2025 Travel 03/12/2025 Telephone [facility] MEDICINE [address] [place] [address] Galo Fang MD Chart Prep 03/06/2025 Patient Outreach [facility] MEDICINE [address] [place] [address] Galo Fang MD Pre-visit Planning ([facility] screening was completed on 08/31/2024) 02/28/2025 Orders Only GENERIC EXTERNAL DATA DEPARTMENT Provider, Generic External Data 02/15/2025 Refill [facility] CHC MED & PEDS [address] [place] [address] Galo Fang MD from Last 3 Months Immunizations Immunization Administration [...] Description 06/22/2025 9:00 AM EST Office Visit [facility] MEDICINE [address] [place] [address] Carroll Roberts MD [address] [place] [address] 07/10/2025 10:00 AM EST Office Visit [facility] MEDICINE [address] [place] [address] Galo Fang MD [address] [place] [address] 09/21/2025 11:00 AM EST Office Visit [facility] OPTOMETRY [address] [place] [address] Paulo, Pat, OD [address] [place] [address] Health Maintenance Due Date Last Done Comments CT Colonography 1960 FIT DNA/Cologuard 1960 FIT 1960 FOBT 1960 Sigmoidoscopy 1960 Diabetes: Foot Exam 1970 Zoster Vaccines (1 of 2) 2010 RSV Patients and Patients Aged 60 years or older (1 - Risk 60-74 years 1-dose series) 2020 DTaP/Tdap/Td Vaccines (2 - Td or Tdap) 04/04/2025 04/04/2015, 02/06/2003 COVID-19 Vaccine ( - season) 2025 08/14/2021, 11/25/2020, 10/28/2020 Influenza Vaccine (#1) 2025 , 06/29/2017, 05/28/2016, Additional history exists Diabetes: Hemoglobin A1C 07/11/2025 025, 03/13/2025, 09/12/2024, Additional history exists SDOH Screening 08/31/2025 08/31/2024 Alcohol/Substance Use Screening 09/12/2025 09/12/2024 Diabetes: Urine Protein Screening 02/28/2026 02/28/2025, 06/07/2024, 11/29/2023, Additional history exists Lipid Panel 02/28/2026 02/28/2025, 08/18, 11/29/2023, Additional history exists Disability Screening 03/13/2026 03/13/2025 Depression Screening 04/10/2026 04/10/2025, 04/10/20 Tobacco Screening 04/10/2026 04/10/2025 Eye Exam 07/31/2026 [...] On track( 025 9:26 AM EDT) Frieda Trevino, transit police officer Procedure Name Priority Date/Time Associated Diagnosis Comments GLUCOSE, WHOLE BLOOD Routine 04/30/2025 1:32 PM EDT POCT GLYCATED HEMOGLOBIN, TOTAL Routine 04/10/2025 9:07 AM EDT Type 2 diabetes mellitus with diabetic polyneuropathy, with long-term current use of insulin (CMS/HCC) POCT GLUCOSE Routine 04/10/2025 9:00 AM EDT Type 2 diabetes mellitus with diabetic polyneuropathy, with long-term current use of insulin (CMS/HCC) CTA CHEST W AND WO CONTRAST Routine [...] polyneuropathy, with long-term current use of insulin (CMS/[facility]) POCT GLYCOSYLATED HEMOGLOBIN (HGB A1C) Routine 03/13/2025 1:26 PM EDT Type 2 diabetes mellitus with diabetic polyneuropathy, with long-term current use of insulin ([facility]) TSH W/REFLEX TO FT4 Routine 02/28/2025 1 0:04 AM EDT AMYLASE Routine 02/28/2025 10:04 AM EDT LIPID PANEL, STANDARD Routine 02/28/2025 10:04 AM EDT ALT Routine 02/28/2025 10:04 AM EDT PLATELET COUNT Routine 02/28/2025 10:04 AM EDT ALBUMIN, RANDOM URINE W/CREATININE Routine 02/28/2025 10:02 AM EDT HEPATITIS PANEL, GENERAL Routine 06/07/2024 10:41 AM EDT HIV 1/2 ANTIGEN/ANTIBODY, FOURTH GENERATION W/RFL Routine 06/07/2024 10:41 AM EDT Opioid use disorder in remission HM COLONOSCOPY Routine 07/29/2018 from Last 3 Months or Most Recently Relevant to Health Maintenance Results * (ABNORMAL) Glucose, Whole Blood (04/30/2025 1:32 PM EDT) Glucose, Whole Blood 189(H) 60 - 115 mg/dL [facility] Comment:METER #: [id number] 0Testing performed in the Endocrinology Department [address] , [address], [facility]. 04/30/2025 1:32 PM EDT 04/30/2025 1:36 PM EDT us Generic External Data Provider LAB BLOOD ORDERAB LES Final Result [facility] [address], [place] [phone] * (ABNORMAL) POCT HGB A1C (04/10/2025 9:07 AM EDT) Hemoglobin A1C 7.6(A) 4.0 - 5.7 % QC Media Lot # [id number] Lot# Expiration Date Blood 04/10/2025 9:07 AM EDT us Galo Ramey MD POINT OF CARE TEST EN TER/EDIT ORDERABLES Final Result * POCT Glucose (04/10/2025 9:00 AM EDT) Only the most recent of2 resultswithin the time period is included. Glucose Blood, POC 179 60 - 200 mg/dL Comment:random QC Media Lot # [id number] Lot# Expiration Date ,093,[id number] Blood Capillary blood specimen / Unknown 04/10/2025 9:00 AM EDT us Galo Ramey MD POINT OF CARE TEST EN TER/EDIT ORDERABLES Final Result * CTA Abdomen Pelvis w/ and w/o Contrast (03/18/2025 11:23 AM EDT) Anatomical Region Laterality Modality Body, Pelvis, Abdomen Computed T omography 03/18/2025 11:2 3 AM EDT Narrative 03/18/2025 11:25 AM EDT [place] [address] [address] Scan Report Signed Patient: Nemesio Brown MR#: [id number] : 1960 Acct:[id number] Age/Sex: 64 / M ADM Date: 03/18/25 Loc: .ED Attending Dr: Ordering Physician: Elise Mccartney Date of Service: 03/18/25 Procedure(s): CT angio abdomen pelvis Accession Number(s): [id number] cc: Galo Prajapati MD; Elise Mccartney Report Number: [id number]: Total DLP = 671.00 mGy-cm CLINICAL HISTORY: r o dissection CT angiography chest, abdomen and pelvis with contrast. 3-D postprocessing. Comparison: None provided Findings: There is mild ectasia of the ascending thoracic aorta. The patient is status post aortic valve replacement. There is no evidence of aortic dissection. There are bkoh-mr-ttpvdhnq coronary artery calcifications. There is a small [...] 03/18/25 1124 DD/ 1123 TD/TT: 03/18/25 1123 Haunted History Tour Guide: Procedure Note Donotuseinterpreter, Image - 03/18/[address] [place] [address] [address] Scan Report Signed Patient: Radha BrownarMR#: [id number] : 1960Acct:[id number] Age/Sex: 64 / MADM Date: 03/18/25 Loc: HO.ED Attending Dr: Ordering Physician: Elise Mccartney Date of Service: 03/18/25 Procedure(s): CT angio abdomen pelvis Accession Number(s): [id number] cc: Galo Prajapati MD; Elise Mccartney Report Number: [id number]: Total DLP = 671.00 mGy-cm CLINICAL HISTORY: r o dissection CT angiography chest, abdomen and pelvis with contrast. 3-D postprocessing. Comparison: None provided Findings: There is mild ectasia of the ascending thoracic aorta. The patient is status post aortic valve replacement. There is no evidence of aortic dissection. There are zgvq-ba-xmdxjxni coronary artery calcifications. There is a small [...] 03/18/25 1124 DD/ 1123 TD/TT: 03/18/25 1123 Haunted History Tour Guide: [facility] External Provider IMG CT PROCEDURES Edited Result - Final * CTA Chest w/ and w/o Contrast (03/18/2025 11:23 AM EDT) Anatomical Region Laterality Modality Body, Chest Computed Tomogra phy 03/18/2025 11:2 3 AM EDT Narrative 03/18/2025 11:25 AM EDT [place] [address] CT Scan Report Signed Patient: Nemesio Brown MR#: [id number] : 1960 Acct:[id number] Age/Sex: 64 / M ADM Date: 03/18/25 Loc: HO.ED Attending Dr: Ordering Physician: Elise Mccartney Date of Service: 03/18/25 Procedure(s): CT angio chest aorta Accession Number(s): [id number] cc: Galo Prajapati MD; Elise Mccartney Report Number: [id number]: Total DLP = 0.00 mGy-cm CLINICAL HISTORY: r o dissection CT angiography chest, abdomen and pelvis with contrast. 3-D postprocessing. Comparison: None provided Findings: There is mild ectasia of the ascending thoracic aorta. The patient is status post aortic valve replacement. There is no evidence of aortic dissection. There are scgt-gt-ymzzxfno coronary artery calcifications. There is a small [...] 03/18/25 1124 DD/ 1123 TD/TT: 03/18/25 1123 Haunted History Tour Guide: Procedure Note Donotuseinterpreter, Image - 03/18/[address] [place] [address] [address] Scan Report Signed Patient: Radha BrownarMR#: [id number] : 1960Acct:[id number] Age/Sex: 64 / MADM Date: 03/18/25 Loc: .ED Attending Dr: Ordering Physician: Elise Mccartney Date of Service: 03/18/25 Procedure(s): CT angio chest aorta Accession Number(s): [id number] cc: Galo Prajapati MD; Elise Mccartney Report Number: [id number]: Total DLP = 0.00 mGy-cm CLINICAL HISTORY: r o dissection CT angiography chest, abdomen and pelvis with contrast. 3-D postprocessing. Comparison: None provided Findings: There is mild ectasia of the ascending thoracic aorta. The patient is status post aortic valve replacement. There is no evidence of aortic dissection. There are zikm-ly-hxdmdpny coronary artery calcifications. There is a small [...] 03/18/25 1124 DD/ 1123 TD/TT: 03/18/25 1123 Haunted History Tour Guide: [facility] External Provider IMG CT PROCEDURES Edited Result - Final * (ABNORMAL) High Sensitivity Troponin I (03/18/2025 9:29 AM EDT) TROPONIN I HIGH SENSITIVITY 159.4(HH) <3.5 - 35.0 ng/L [facility] Comment:Critical value for T ROPONIN: Results called to and readback by: CHUCHO Person calling: PUJA Date: 03-18-25 Time:1032The Meza high sensitivity Troponin-I results should beused in conjunction with other diagnostic information suchas ECG, clinical observations and information, and patientsymptoms to aid in the diagnosis of ME. 03/18/2025 9:29 AM EDT 03/18/2025 9:32 AM EDT Generic External Data Provider LAB BLOOD ORDERAB LES Final Result [facility] [address] [place] [phone] * HOLD LT BLUE - POSSIBLE COAG (03/18/2025 9:29 AM EDT) Hold Lt Blue - Possible Coag SEE NOTE [facility] Comment:Specimen will be hel d untested for 4 hours. Call Hematologyif testing is desired. 03/18/2025 9:29 AM EDT 03/18/2025 9:34 AM EDT us Generic External Data Provider LAB BLOOD ORDERAB LES Final Result [facility] [address] [place] [phone] * (ABNORMAL) CBC auto differential (03/18/2025 9:29 AM EDT) Pathologist [facility] White Blood Count 7.4 4.8 - 10.8 X10*3/uL [facility] Red Blood Count 4.10(L) 4.60 - 5.80 X10*6/uL [facility] Hemoglobin 11.5(L) 14.0 - 18.0 g/dl [facility] Hematocrit 34.8(L) 42.0 - 52.0 % [facility] Mean Corpuscular Volume 84.9 80.0 - 98.0 fL [facility] Mean Corpuscular Hemoglobin 28.0 27.0 - 33.0 pg [facility] Mean Corpuscular HGB Conc 33.0 31.0 - 36.0 g/dl [facility] Red Cell Distribution Width 14.3 11.0 - 16.0 % [facility] Platelet Count 173 160 - 400 X10*3/uL [facility] Mean Platelet Volume 9.6 9.4 - 12.4 fL [facility] Neutrophils Percent Auto 68.5 45 - 73 % [facility] Imm Gran Pct Auto 0.3 0.0 - 0.4 % [facility] Lymphocytes Percent Auto 20.8 20 - 40 % [facility] Monocytes Percent Auto 6.9 2 - 11 % [facility] Eosinophils Percent Auto 3.0 0 - 4 % [facility] Basophils Percent Auto 0.5 0 - 2 % [facility] NRBC Pct Auto 0.0 0.0 - 0.2 /100WBC [facility] Neutrophils Absolute Auto 5.0 2.0 - 8.3 x10*3/uL [facility] Imm Gran Abs Auto 0.02 0.00 - 0.03 X10*3/uL [facility] Lymphocytes Absolute Auto 1.5 1.2 - 4.9 X10*3/uL [facility] Monocytes Absolute Auto 0.5 0.1 - 1.2 X10*3/uL [facility] Eosinophils Absolute Auto 0.2 0.0 - 0.4 X10*3/uL [facility] Basophils Absolute Auto 0.0 0.0 - 0.2 X10*3/uL [facility] NRBC Abs Auto 0.000 0.0 - 0.012 X10*3/uL [facility] 03/18/2025 9:29 AM EDT 03/18/2025 9:32 AM EDT us Generic External Data Provider LAB BLOOD ORDERAB LES Final Result Performing Organization Address [facility]/ZIP Co de Phone Number [facility] [address] [place] [phone] * (ABNORMAL) B Type Natriuretic Peptide (BNP) (03/18/2025 9:29 AM EDT) B Type Natriuretic Peptide 387(H) <100 pg/mL [facility] 03/18/2025 9:29 AM EDT 03/18/2025 10:37 AM EDT us Generic External Data Provider LAB BLOOD ORDERAB LES Final Result Performing Organization Address City/[facility]/ZIP Co de Phone Number [facility] [address] [place] [phone] * Magnesium (03/18/2025 9:29 AM EDT) Pathologist [facility] Magnesium 2.0 1.6 - 2.6 mg/dL [facility] 03/18/2025 9:29 AM EDT 03/18/2025 9:32 AM EDT Generic External Data Provider LAB BLOOD ORDERAB LES Final Result [facility] [address] [place] [phone] * Lipase (03/18/2025 9:29 AM EDT) Pathologist [facility] Lipase 10 8 - 78 U/L [facility] 03/18/2025 9:29 AM EDT 03/18/2025 9:32 AM EDT Generic External Data Provider LAB BLOOD ORDERAB LES Final Result [facility] [address] [place] [phone] * (ABNORMAL) Comprehensive Metabolic Panel (03/18/2025 9:29 AM EDT) Pathologist [facility] Sodium 136 135 - 145 mmol/L [facility] Potassium 4.3 3.3 - 5.1 mmol/L [facility] Chloride 102 96 - 108 mmol/L [facility] Carbon Dioxide 27 22 - 29 mmol/L [facility] Anion Gap 11(L) 12 - 20 [facility] Urea Nitrogen (BUN) 15 9 - 16 mg/dL [facility] Creatinine, Serum 0.81 0.5 - 1.4 mg/dL [facility] Creatinine Clr Calc Pharmacy 103.8 [facility] Comment:eGFR (calculated fro m the MDRD study equation) and eCrCl(calculated from the Cockcroft-Gault equation) are based ondifferent parameters and may not yield comparable results.If eCrCl result is absurd, please check patient'sheight/weight. Estimated Glomerular Filt Rate >60 [facility] Comment:Chronic Kidney Disea se: Estimated GFR < 60 mL/min/1.90g6Unvlgb Kidney Disease: Estimated GFR < 15 mL/min/1.73m2 Glucose 148(H) 60 - 115 mg/dL [facility] Calcium 8.5 8.4 - 10.2 mg/dL [facility] Bilirubin, Total 0.5 0.0 - 1.0 mg/dL [facility] Aspartate Amino Transferase 23 5 - 37 U/L [facility] Alanine Aminotransferase 27 0 - 40 U/L [facility] Total Protein 6.8 6.5 - 8.0 g/dL [facility] Albumin Level 4.1 3.5 - 5.0 g/dL [facility] Alkaline Phosphatase 73 39 - 117 U/L [facility] 03/18/2025 9:29 AM EDT 03/18/2025 9:32 AM EDT us Generic External Data Provider LAB BLOOD ORDERAB LES Final Result [facility] [address] [place] [phone] * (ABNORMAL) POCT glycosylated hemoglobin (Hgb A1c) (03/13/2025 1:26 PM EDT) Hemoglobin A1C 7.8(A) 4.0 - 5.7 % QC Media Lot # [id number] Lot# Expiration Date ,[id number] Blood Capillary blood specimen / Unknown 03/13/2025 1:26 PM EDT us Galo Ramey MD POINT OF CARE TEST EN TER/EDIT ORDERABLES Final Result * TSH with Reflex to Free T4 (02/28/2025 10:04 AM EDT) TSH reflex Free T4 2.05 0.32 - 4.0 uIU/mL [facility] 02/28/2025 10:0 4 AM EDT 02/28/2025 10:04 AM EDT us Generic External Data Provider LAB BLOOD ORDERAB LES Final Result Performing Organization Address [facility] Co de Phone Number [facility] [address] [place] [phone] * Platelet Count (02/28/2025 10:04 AM EDT) Platelet Count 264 160 - 400 X10*3/uL [facility] 02/28/2025 10:0 4 AM EDT 02/28/2025 10:04 AM EDT us Generic External Data Provider LAB BLOOD ORDERAB LES Final Result Performing Organization Address [facility] de Phone Number [facility] [address] [place] [phone] * ALT (02/28/2025 10:04 AM EDT) Alanine Aminotransferase 28 0 - 40 U/L [facility] 02/28/2025 10:0 4 AM EDT 02/28/2025 10:04 AM EDT us Generic External Data Provider LAB BLOOD ORDERAB LES Final Result Performing Organization Address [facility] de Phone Number [facility] [address] [place] [phone] * Amylase (02/28/2025 10:04 AM EDT) Amylase 78 28 - 100 U/L [facility] 02/28/2025 10:0 4 AM EDT 02/28/2025 10:04 AM EDT Generic External Data Provider LAB BLOOD ORDERAB LES Final Result Performing Organization Address [facility]/ZIP Co de Phone Number [facility] [facility] [address] [place] [phone] [phone] * (ABNORMAL) Lipid Panel, Standard (02/28/2025 10:04 AM EDT) Triglycerides 187(H) <150 mg/dL [facility] Comment:Desirable Triglyceri de: less than 150 mg/dLBorderline High Triglyceride 150-199 mg/dLHigh Triglyceride: 200-499 mg/dLVery High Triglyceride: greater than or equal to 5OO mg/dL Cholesterol 164 <200 mg/dL [facility] Comment:Desirable Cholestero l: less than 200 mg/dLBorderline High Cholesterol: 200-239 mg/dLHigh Cholesterol: greater than 239 mg/dL LDL Cholesterol Calculated 91 <100 mg/dL [facility] Comment:Desirable LDL: less than 100 mg/dLNear Optimal/Above Optimal LDL: 110- 129 mg/dLBorderline High LDL: 130-159 mg/dLHigh LDL: 160-189 mg/dLVery High LDL: greater than or equal to 190 mg/dL HDL Cholesterol 36(L) >40 mg/dL [facility] Comment:Desirable HDL: great er than 40 mg/dL Note: This HDL assay may give artificially low results in patients with liver disease. 02/28/2025 10:0 4 AM EDT 02/28/2025 10:04 AM EDT Generic External Data Provider LAB BLOOD ORDERAB LES Final Result Performing Organization Address City/[facility]/ZIP Co de Phone Number [facility] [address] [place] [phone] * Albumin, Random Urine W/Creatinine (02/28/2025 10:02 AM EDT) Creatinine, Urine 208.62 mg/dL [facility] Microalbumin Urine 26.0 mg/L [facility] Microalbum Creatinine Ratio Ur 12.4 <30 ug/mg cr [facility] Comment:Albumin/Creatinine R atio Reference Ranges: Normal: < 30 ug/mg creatinine Microalbuminuria: 30 - 300 ug/mg creatinineClinical Albuminuria: > 300 ug/mg creatinine 02/28/2025 10:0 2 AM EDT 02/28/2025 10:36 AM EDT Generic External Data Provider LAB URINE ORDERAB LES Final Result Performing Organization Address [facility]/RUST de Phone Number [facility] [address] [place] [phone] * Hepatitis Panel, General (06/07/2024 10:41 AM EDT) Hepatitis A IgM Nonreactive Nonreactive [facility] Comment:IgM antibodies to ALBRECHT V not detected; does not exclude earlyacute or recovered HAV infection. ~Hepatitis B Surface Antibody NONREACTIVE Nonreactive [facility] Comment:Nonreactive: < 8.00 mIU/mL Hepatitis B Core Antibody Nonreactive Nonreactive [facility] Hepatitis C Antibody Nonreactive Nonreactive [facility] Comment:Antibodies to HCV no t detected; does not exclude early acuteHCV infection. Hepatitis B Surface Ag Negative Negative [facility] 06/07/2024 10:4 1 AM EDT 06/07/2024 10:41 AM EDT Generic External Data Provider LAB BLOOD ORDERAB LES Final Result Performing Organization Address [facility]/RUST de Phone Number [facility] [address] [place] [phone] * HIV-1/2 Antigen and Antibodies, Fourth Generation, with Reflexes (06/07/2024 10:41 AM EDT) HIV AB/AG Nonreactive Nonreactive [facility] Comment:HIV-1 p24 Ag and/or HIV-1/HIV-2 Ab not detected.A test result that is nonreactive does not exclude thepossibility of exposure to or infection with HIV-1 and/orHIV-2. Nonreactive results in this assay for individualswith prior exposure to HIV-1 and/or HIV-2 may be due toantigen and antibody levels that are below the limit ofdetection of this assay.[employer] HIV Ag/Ab Combo assay result andsupplemental assay results should be interpreted inconjunction with the patient's clinical presentation,history and other laboratory results. If the results areinconsistent with clinical evidence, additional testing issuggested to confirm the result. Blood Venous blood specimen / Unknown 06/07/2024 10:41 AM EDT 06/07/2024 10:41 AM EDT Carroll Roberts MD LAB BLOOD ORDERABLES Final Res ult [facility] [address] [place] [phone] * Colonoscopy (07/29/2018) Colonoscopy Normal Normal 07/29/2018 Narrative Joanne Georgia - 07/29/2018 1:52 PM EST Recommended 10 year follow up Historical Provider HEALTH MAINTENANCE Final Result from Last 3 Months or Most Recently Relevant to Health Maintenance [place] [place] [address] C3 Care Teams Search Coordinator Relationship Specialty Start Date End Date Galo Fang MD [address] [place] [phone] PCP - General Internal Medicine 04/04/14
--- OUTSIDE RECORDS SUMMARY | 2025-04-30 18:25 | XMS_ITS | Encounter Summary ---
Author Organization [employer] Address 75 [facility] 7t [place] [address] Care Team Providers Care Tailer Off Name Role Phone Galo Fang MD Primary Care Provide r Reason for Visit * Reason Comments Med Refill Encounter Details Date Type Department Care Team ([facility] st Contact Info) Description 04/20/2024 Refill [facility] [address] [place] [address] [phone] Karuna Covington MD [address] [place] [address] Foreign body sensation, right eye Social History [...] 06/22/2025 9:00 AM EST Office Visit [facility] [address] [place] [address] Carroll Roberts MD [address] [place] [address] 07/10/2025 10:00 AM EST Office Visit [facility] [address] [place] [address] Galo Fang MD [address] [place] [address] 09/21/2025 11:00 AM EST Office Visit [facility] [address] [place] [address] Paulo, Pat, OD [address] [place] [address] documented as of this encounter Visit Diagnoses Diagnosis Foreign body sensation, right eye documented in this encounter Additional Health Concerns Assessment Noted Time PHQ-9 Depression Total Score: 0 07/01/20 23 1:10 PM EST documented as of this encounter Care Teams Tailer Off Relationship Specialty Start Date End Date Galo Fang MD [address] [place] [phone] PCP - General Internal Medicine 04/04/14 documented as of this encounter
== END 2025-04-30 13:55 | disposition home or self-care (01) ==
LOC: HO.ENCR 13:17
PROVIDERS: PCP Internal Medicine; Visit Provider Internal Medicine Endocrinology, Diabetes & Metabolism
DX: E11.40 Type 2 diabetes mellitus with diabetic neuropathy, unspecified (principal); Z79.4 Long term (current) use of insulin; M81.0 Age-related osteoporosis without current pathological fracture
CPT/HCPCS: 99214

== ENCOUNTER → 2025-04-30 13:17 | Outpatient (BNVA) | payer MEDICAID, SELFPAY | PROVIDERS: PCP Internal Medicine; Visit Provider Internal Medicine Endocrinology, Diabetes & Metabolism | DX: M81.0 Age-related osteoporosis without current pathological fracture (principal); E11.40 Type 2 diabetes mellitus with diabetic neuropathy, unspecified; Z79.4 Long term (current) use of insulin | CPT/HCPCS: 82947; 83036; 99212 ==

== ENCOUNTER 2025-05-14 09:31 | Outpatient (REF) | payer MEDICAID, SELFPAY ==
--- OUTSIDE RECORDS SUMMARY | 2025-05-11 16:00 | XMS_ITS | Encounter Summary ---
Author Organization [employer] Address 75 [facility] 7t [place] [address] Care Team Providers Care Business Info Consultant Name Role Phone Galo Fang MD Primary Care Provide r Reason for Visit * Reason Comments Leg Pain Encounter Details Date Type Department Care Team ([facility] st Contact Info) Description 05/11/2025 4:00 PM EDT Office Visit [facility] [address] [place] [address] Susan Arriaga MD [address] [place] [address] Pain of left calf (Primary Dx) Social History Tobacco Use Types [...] Sign Reading Time Taken Comments Blood Pressure 120/83 05/11/2025 3:50 PM EDT Pulse 86 05/11/2025 3:50 PM EDT Temperature 36.8 C (98.2 F) 05/11/2025 3:50 PM EDT Respiratory Rate 17 05/11/2025 3:50 PM EDT Oxygen Saturation 96% 05/11/2025 3:50 PM EDT Inhaled Oxygen Concentration - - Weight 99.3 kg (219 lb) 05/11/2025 3:50 PM EDT Height - - Body Mass Index 34.3 04/10/2025 8:57 AM EDT documented in this encounter Progress Notes * Susan Arriaga MD - 05/11/2025 4:00 PM EDT Images from the original note were not included. SUBJECTIVE Nemesio Ramírez is a 64 y.o. male patient of Galo Prajapati MD who presents for left calf pain. HPI For the past 3 weeks, Nemesio has had marked pain in his lower calf. Pain occurs with walking or standing. Not present at rest. He has associated cramps in both calves at night. No shortness of breath and no history of VTE. He has tried nabumetone & Tylenol for pain without relief. He was hospitalized 03/18/25-03/21/25 for complete heart block at which time he underwent pacemaker placement. He denies leg trauma, leg swelling, shortness of breath, palpitations. Review of Systems Respiratory: Negative for cough and shortness of breath. Cardiovascular: Negative for palpitations and leg swelling. Musculoskeletal: Left calf pain OBJECTIVE Vitals: 05/11/25 1550 BP: 120/83 BP Location: Right arm Patient Position: Sitting BP Cuff Size: Large adult Pulse: 86 Resp: 17 Temp: 98.2 ??F (36.8 ??C) TempSrc: Temporal SpO2: 96% Weight: 219 lb (99.3 kg) Physical Exam Constitutional: Appearance: He is not toxic-appearing. HENT: Head: Normocephalic. Cardiovascular: Rate and Rhythm: Normal rate and regular rhythm. Heart sounds: S1 normal and S2 normal. Murmur heard. Crescendo decrescendo systolic murmur is present with a grade of 1/6. Comments: Tiny visible peripheral veins in superior 1/3 of left calf. Musculoskeletal: Right lower leg: No tenderness. No edema. Left lower leg: Tenderness (inferior aspect of calf mm. Normal calf strength.) present. No edema. Left ankle: Left Achilles Tendon: Normal. No tenderness or defects. Legs: Neurological: General: No focal deficit present. Mental Status: He is alert. Psychiatric: Mood and Affect: Mood normal. Behavior: Behavior normal. Assessment/Plan Assessment/Plan Diagnoses and all orders for this visit: Pain of left calf: Given what seems to be mild heart failure with reduced EF and recent surgery, mybiggest concern is DVT. He scores 1 on the modified Wells score, so I will get a D-dimer stat. I told him the on-call provider would call him if the value were high (>500 ng/mL) and tell him to [facility]. If the level is low, I will send him to Ortho. Pain management would depend on whether he has a DVT. - D-Dimer, Quantitative; Future Future Appointments Date Time Provider Department Center 06/22/2025 9:00 AM Carroll Roberts MD MEDICINE [facility] 07/10/2025 10:00 AM [address] [facility] 09/21/2025 11:00 AM Pat Bates OD [facility] documented in this encounter Plan of Treatment Upcoming Encounters Date Type Department Care Team (Late st Contact Info) Description 06/22/2025 9:00 AM EST Office Visit [facility] [address] [place] [address] Carroll Roberts MD [address] [place] [address] 07/10/2025 10:00 AM EST Office Visit [facility] [address] [place] [address] Galo Fang MD [address] [place] [address] 09/21/2025 11:00 AM EST Office Visit [facility] [address] [place], [place] [phone] Pat Bates, OD [address] [place] [address] Scheduled Orders Name Type Priority Associated Diagnoses Orde r Schedule D-Dimer, Quantitative Lab STAT Pain of left calf Expected: 05/11/2025 (Approximate), Expires: 05/11/2026 documented as of this encounter Goals Goal Patient Goal Type Associated Problems Recent Progress Patient-Stated? Author Increase coping skills to promote long-term recovery and improve ability to perform daily activities General On track( 025 9:26 AM EDT) Frieda Trevino, GULSHAN documented as of this encounter Visit Diagnoses Diagnosis Pain of left calf- Primary documented in this encounter Additional Health Concerns Assessment Noted Time PHQ-9 Depression Total Score: 0 04/10/20 25 8:59 AM EDT documented as of this encounter Care Teams Business Info Consultant Relationship Specialty Start Date End Date Galo Fang MD [address] [place] [address] PCP - General Internal Medicine 04/04/14 documented as of this encounter
--- OUTSIDE RECORDS SUMMARY | 2025-05-14 10:22 | XMS_ITS | Encounter Summary ---
Author Organization [employer] Address [address] [place] [address] [address], [place] [address] Care Team Providers Care Laser Engraver Name Role Phone Galo Fang MD Primary Care Provide r Reason for Visit * Reason Comments Med Refill Encounter Details Date Type Department Care Team (Late Contact Info) Description 11/12/2022 Refill [facility] [address] [place] [phone] Galo Fang MD [address] [place] [address] Gastroesophageal reflux disease, unspecified whether esophagitis present [...] 06/22/2025 9:00 AM EST Office [facility] [address] [place] [phone] Carroll Roberts MD [address] [place] [address] 07/10/2025 10:00 AM EST Office [facility] [address] [place] [address] Galo Fang MD [address] [place], [place] [phone] 09/21/2025 11:00 AM EST Office Visit [facility] [address] [place], [place] [phone] Pat Bates, OD [address] [place] [address] documented as of this encounter Visit Diagnoses Diagnosis Gastroesophageal reflux disease, unspecified whether esophagitis present documented in this encounter Care Teams Laser Engraver Relationship Specialty Start Date End Date Galo Fang MD [address] [place], [place] [phone] PCP - General Internal Medicine 04/04/14 documented as of this encounter
--- OUTSIDE RECORDS SUMMARY | 2025-05-14 10:22 | XMS_ITS | Encounter Summary ---
Author Organization [employer] Address [address] [place] [address] [address] [place] [address] Care Team Providers Care Entry Level Electrician Name Role Phone Galo Fang MD Primary Care Provide r Reason for Visit * Reason Comments Med Refill Encounter Details Date Type Department Care Team (Late Contact Info) Description 11/03/2022 Refill [facility] [address] [place] [phone] Jess Barriga MD [address] [place] [phone] Mild intermittent asthma without complication Social History [...] Office Visit [facility] [address] [place] [phone] Carroll Roberts MD [address] [place] [address] [phone] 07/10/2025 10:00 AM EST Office Visit [facility] [address] [place] [phone] Galo Fang MD [address] [place] [address] [phone] 09/21/2025 11:00 AM EST Office Visit [facility] [address] [place], [place] [phone] Pat Bates, OD [address] [place], [place] [phone] documented as of this encounter Visit Diagnoses Diagnosis Mild intermittent asthma without complication documented in this encounter Care Teams Entry Level Electrician Relationship Specialty Start Date End Date Galo Fang MD [address] [place], [place] [phone] PCP - General Internal Medicine 04/04/14 documented as of this encounter
--- OUTSIDE RECORDS SUMMARY | 2025-05-14 10:22 | XMS_ITS | Encounter Summary ---
Author Organization [employer] Address [address] [place] [address] [address] [place] [address] Care Team Providers Care Box Printer Name Role Phone Galo Fang MD Primary Care Provide r Encounter Details Date Type Department Care Team (Late st Contact Info) Description 12/23/2022 Abstract [facility] [address] [place] [address] Galo Fang MD [address] [place] [address] [phone] Social History Tobacco Use Types Packs/Day Years [...] Description 06/22/2025 9:00 AM EST Office Visit [facility] [address] [place] [address] Carroll Roberts MD [address] [place] [address] 07/10/2025 10:00 AM EST Office Visit [facility] [address] [place] [address] Galo Fang MD [address] [place] [address] [phone] 09/21/2025 11:00 AM EST Office Visit [facility] [address] [place] [address] Pat Bates, OD [address] [place] [address] documented as of this encounter Procedures Procedure Name Priority Date/Time Associated Diagnosis Comments COLONOSCOPY Routine 07/29/2018 documented in this encounter Results * Hm Colonoscopy (07/29/2018) Colonoscopy Normal Normal 07/29/2018 Narrative Georgia Rubio - 07/29/2018 1:52 PM EST Recommended 10 year follow up Historical Provider HEALTH MAINTENANCE Final Result documented in this encounter Visit Diagnoses Not on filedocumented in this encounter Care Teams Box Printer Relationship Specialty Start Date End Date Galo Fang MD [address] [place] [address] PCP - General Internal Medicine 04/04/14 documented as of this encounter
--- OUTSIDE RECORDS SUMMARY | 2025-05-14 10:22 | XMS_ITS | Encounter Summary ---
Author Organization [employer] Address [address] [place] [address] [address] [place] [address] Care Team Providers Care Clinical Associate Name Role Phone Galo Fang MD Primary Care Provide r Reason for Visit * Reason Comments Med Refill Encounter Details Date Type Department Care Team (Late Contact Info) Description 11/07/2022 Refill [facility] [address] [place] [phone] Carroll Roberts MD [address] [place] [address] [phone] Uncomplicated opioid dependence (CMS/HCC) Social History Tobacco [...] Description 06/22/2025 9:00 AM EST Office Visit [facility] [address] [place] [address] Carroll Roberts MD [address] [place] [address] [phone] 07/10/2025 10:00 AM EST Office Visit [facility] [address] [place] [address] Galo Fang MD [address] [place] [phone] 09/21/2025 11:00 AM EST Office Visit [facility] [address] [place], [place] [phone] Pat Bates, OD [address] [place] [address] documented as of this encounter Visit Diagnoses Diagnosis Uncomplicated opioid dependence (CMS/HCC) (HCC) documented in this encounter Care Teams Clinical Associate Relationship Specialty Start Date End Date Galo Fang MD [address] [place], [place] [phone] PCP - General Internal Medicine 04/04/14 documented as of this encounter
--- OUTSIDE RECORDS SUMMARY | 2025-05-14 10:22 | XMS_ITS | Encounter Summary ---
Author Organization [employer] Address 75 [facility] 7t [place] [address] Care Team Providers Care Hide Stretcher Hand Name Role Phone Galo Fang MD Primary Care Provide r Reason for Visit * Reason Comments Med Refill Encounter Details Date Type Department Care Team ([facility] st Contact Info) Description 09/08/2024 Refill [facility] [address] [place] [address] Carroll Roberts MD [address] [place], [place] [phone] Uncomplicated opioid dependence (CMS/HCC) Social History Tobacco [...] Upcoming Encounters Date Type Department Care Team ([facility] st Contact Info) Description 06/22/2025 9:00 AM EST Office Visit [facility] [address] [place] [address] Carroll Roberts MD [address] [place] [address] 07/10/2025 10:00 AM EST Office Visit [facility] [address] [place] [address] Galo Fang MD [address] [place] [address] 09/21/2025 11:00 AM EST Office Visit [facility] [address] [place] [address] Pat Bates, OD [address] [place] [address] documented as of this encounter Visit Diagnoses Diagnosis Uncomplicated opioid dependence (CMS/HCC) (HCC) documented in this encounter Additional Health Concerns Assessment Noted Time PHQ-9 Depression Total Score: 0 05/26/20 24 9:56 AM EDT documented as of this encounter Care Teams Hide Stretcher Hand Relationship Specialty Start Date End Date Galo Fang MD [address] [place] [address] PCP - General Internal Medicine 04/04/14 documented as of this encounter
--- OUTSIDE RECORDS SUMMARY | 2025-05-14 10:22 | XMS_ITS | Encounter Summary ---
Author Organization [employer] Address [address] [place] [address] [address] [place] [address] Care Team Providers Care Final Inspector Truck Trailer Name Role Phone Galo Fang MD Primary Care Provide r Reason for Visit * Reason Onset Date Comments Med Refill TP 01/02/2023 Encounter Details Date Type Department Care Team (Late st Contact Info) Description 01/02/2023 Telephone [facility] [address] [place] [address] [phone] Carroll Roberts MD [address] [place], [place] [phone] Med Refill; TP Social History Tobacco Use [...] 06/22/2025 9:00 AM EST Office Visit [facility] [address] [place] [address] Carroll Roberts MD [address] [place] [address] 07/10/2025 10:00 AM EST Office Visit [facility] [address] [place] [address] Galo Fang MD [address] [place] [address] 09/21/2025 11:00 AM EST Office Visit [facility] [address] [place] [address] Pat Bates, OD [address] [place] [address] documented as of this encounter Visit Diagnoses Diagnosis Uncomplicated opioid dependence (CMS/HCC) (HCC) documented in this encounter Care Teams Final Inspector Truck Trailer Relationship Specialty Start Date End Date Galo Fang MD [address] [place] [phone] PCP - General Internal Medicine 04/04/14 documented as of this encounter
--- OUTSIDE RECORDS SUMMARY | 2025-05-14 10:22 | XMS_ITS | Encounter Summary ---
Author Organization [employer] Address 75 [facility] 7t [place] [address] Care Team Providers Care Tiedown Operator Name Role Phone Galo Fang MD Primary Care Provide r Encounter Details Date Type Department Care Team (Latest Contact Info) Description 05/11/2025 Travel Social History Tobacco Use Types Packs/Day [...] [facility] [address] [place] [address] Carroll Roberts MD [address] [place] [address] 07/10/2025 10:00 AM EST Office Visit [facility] [address] [place] [address] Galo Fang MD [address] [place] [address] 09/21/2025 11:00 AM EST Office Visit [facility] [address] [place] [address] Pat Bates, OD [address] [place] [address] documented as of this encounter Goals Goal Patient Goal Type Associated Problems Recent Progress Patient-Stated? Author Increase coping skills to promote long-term recovery and improve ability to perform daily activities General On track( 025 9:26 AM EDT) Frieda Trevino, RN documented as of this encounter Visit Diagnoses Not on filedocumented in this encounter Additional Health Concerns Assessment Noted Time PHQ-9 Depression Total Score: 0 04/10/20 25 8:59 AM EDT documented as of this encounter Care Teams Tiedown Operator Relationship Specialty Start Date End Date Galo Fang MD [address] [place] [address] PCP - General Internal Medicine 04/04/14 documented as of this encounter
--- OUTSIDE RECORDS SUMMARY | 2025-05-14 10:23 | XMS_ITS | Encounter Summary ---
Author Organization [employer] Address [address] [place] [address] 7 [place] [address] Care Team Providers Care Doorperson Name Role Phone Galo Fang MD Primary Care Provide r Reason for Visit * Reason Comments Med Refill Encounter Details Date Type Department Care Team (Late Contact Info) Description 03/02/2023 Refill [facility] MEDICINE [address] [place] [address] [phone] Carroll Roberts MD [address] [place] [address] [phone] Uncomplicated opioid dependence (CMS/HCC) Social History Tobacco [...] 9:00 AM EST Office Visit [facility] MEDICINE [address] [place] [address] 60059 Carroll Roberts MD [address] [place] [address] [phone] 07/10/2025 10:00 AM EST Office Visit [facility] MEDICINE [address] [place] [address] [phone] Galo Fang MD [address] [place] [address] 09/21/2025 11:00 AM EST Office Visit [facility] OPTOMETRY [address] [place], [place] [phone] Pat Bates, OD [address] [place] [address] documented as of this encounter Visit Diagnoses Diagnosis Uncomplicated opioid dependence (CMS/HCC) (HCC) documented in this encounter Care Teams Doorperson Relationship Specialty Start Date End Date Galo Fang MD 230 [place], [place] [phone] PCP - General Internal Medicine 04/04/14 documented as of this encounter
--- OUTSIDE RECORDS SUMMARY | 2025-05-14 10:23 | XMS_ITS | Encounter Summary ---
Author Organization [employer] Address [address] [place] [address] 7 [place] [address] Care Team Providers Care Client Services Manager Name Role Phone Galo Fang MD Primary Care Provide r Encounter Details Date Type Department Care Team (Late Contact Info) Description 06/14/2023 Abstract [facility] MEDICINE [address] [place] [phone] Galo Fang MD [address] [place] [address] [phone] Social History Tobacco Use Types Packs/Day Years [...] AM EST Office Visit [facility] MEDICINE [address] [place] [address] Carroll Roberts MD [address] [place] [address] [phone] 07/10/2025 10:00 AM EST Office Visit [facility] MEDICINE [address] [place] [phone] Galo Fang MD [address] [place] [address] [phone] 09/21/2025 11:00 AM EST Office Visit [facility] OPTOMETRY [address] [place] [address] Pat Bates, OD 230 [place] [address] documented as of this encounter Procedures Procedure [...] on filedocumented in this encounter Care Teams Client Services Manager Relationship Specialty Start Date End Date Galo Fang MD 230 [place] [address] PCP - General Internal Medicine 04/04/14 documented as of this encounter
--- OUTSIDE RECORDS SUMMARY | 2025-05-14 10:23 | XMS_ITS | Encounter Summary ---
Author Organization [email or web address] Address [address] [facility] 7t [place] [address] Care Team Providers Care Front Desk Host Name Role Phone Galo Fang MD Primary Care Provide r Reason for Visit * Reason Comments Med Refill Encounter Details Date Type Department Care Team ([facility] st Contact Info) Description 12/23/2023 Refill [facility] MEDICINE [address] [place], [place] [phone] Carroll Roberts MD 230 [place], [place] [phone] Constipation, unspecified constipation type Social History Tobacco [...] Description 06/22/2025 9:00 AM EST Office Visit [facility] MEDICINE [address] [place] [address] Carroll Roberts MD [address] [place] [address] 07/10/2025 10:00 AM EST Office Visit [facility] MEDICINE [address] [place] [address] Galo Fang MD 230 [place] [address] 09/21/2025 11:00 AM EST Office Visit [facility] OPTOMETRY [address] [place] [address] Paulo, Pat, OD 230 [place] [address] documented as of this encounter Visit Diagnoses Diagnosis Constipation, unspecified constipation type documented in this encounter Additional Health Concerns Assessment Noted Time PHQ-9 Depression Total Score: 0 07/01/20 23 1:10 PM EST documented as of this encounter Care Teams Front Desk Host Relationship Specialty Start Date End Date Galo Fang MD [address] [place] [phone] PCP - General Internal Medicine 04/04/14 documented as of this encounter
--- OUTSIDE RECORDS SUMMARY | 2025-05-14 10:23 | XMS_ITS | Encounter Summary ---
Author Organization [employer] Address [address] [place] [address] [address] [address] Care Team Providers Care Resource Specialist Teacher Name Role Phone Galo Fang MD Primary Care Provide r Reason for Visit * Reason Comments Med Refill Encounter Details Date Type Department Care Team ([facility] Contact Info) Description 06/22/2023 Refill [facility] MEDICINE [address] [place] [phone] Carroll Roberts MD [address] [place] [address] [phone] Uncomplicated opioid dependence (CMS/HCC) Social History Tobacco [...] EST Office Visit [facility] MEDICINE [address] [place] [address] [phone] Carroll Robrets MD [address] [place] [address] 07/10/2025 10:00 AM EST Office Visit [facility] MEDICINE [address] [place] [address] 20002 Galo Fang MD [address] [place] [address] [phone] 09/21/2025 11:00 AM EST Office Visit [facility] OPTOMETRY [address] [place], [place] [phone] Pat Bates, OD 230 [place], [place] [phone] documented as of this encounter Visit Diagnoses Diagnosis Uncomplicated opioid dependence (CMS/HCC) (HCC) documented in this encounter Care Teams Resource Specialist Teacher Relationship Specialty Start Date End Date Galo Fang MD 230 [place], [place] [phone] PCP - General Internal Medicine 04/04/14 documented as of this encounter
--- OUTSIDE RECORDS SUMMARY | 2025-05-14 10:23 | XMS_ITS | Encounter Summary ---
Author Organization [employer] Address [address] [facility] 7t [place] [address] Care Team Providers Care Help Desk Specialist Name Role Phone Galo Fang MD Primary Care Provide r Reason for Visit * Reason Comments Med Refill Encounter Details Date Type Department Care Team ([facility] st Contact Info) Description 12/03/2023 Refill [facility] MEDICINE [address] [place] [address] Carroll Roberts MD 230 [place], [place] [phone] Uncomplicated opioid dependence (CMS/HCC) Social History Tobacco [...] Description 06/22/2025 9:00 AM EST Office Visit [facility] MEDICINE [address] [place] [address] Carroll Roberts MD 230 [place] [address] 07/10/2025 10:00 AM EST Office Visit [facility] MEDICINE [address] [place] [address] Galo Fang MD [address] [place] [address] 09/21/2025 11:00 AM EST Office Visit [facility] OPTOMETRY [address] [place] [address] PauloPat womack, OD 230 [place] [address] documented as of this encounter Visit Diagnoses Diagnosis Uncomplicated opioid dependence (CMS/HCC) (HCC) documented in this encounter Additional Health Concerns Assessment Noted Time PHQ-9 Depression Total Score: 0 07/01/20 23 1:10 PM EST documented as of this encounter Care Teams Help Desk Specialist Relationship Specialty Start Date End Date Galo Fang MD [address] [place] [phone] PCP - General Internal Medicine 04/04/14 documented as of this encounter
--- OUTSIDE RECORDS SUMMARY | 2025-05-14 10:23 | XMS_ITS | Encounter Summary ---
Author Organization [employer] Address [address] [facility] 7t [place] [address] Care Team Providers Care Director Of Health Education Name Role Phone Galo Fang MD Primary Care Provide r Reason for Visit * Reason Comments Med Refill Encounter Details Date Type Department Care Team ([facility] st Contact Info) Description 01/28/2024 Refill [facility] MEDICINE [address] [place] [address] Carroll Roberts MD 230 [place], [place] [phone] Uncomplicated opioid dependence (CMS/HCC) Social History Tobacco [...] Description 06/22/2025 9:00 AM EST Office Visit [facility] MEDICINE 230 [place] [address] Carroll Roberts MD [address] [place] [address] 07/10/2025 10:00 AM EST Office Visit [facility] MEDICINE [address] [place] [address] Galo Fang MD [address] [place] [address] 09/21/2025 11:00 AM EST Office Visit [facility] OPTOMETRY [address] [place] [address] PauloPat womack, OD 230 [place] [address] documented as of this encounter Visit Diagnoses Diagnosis Uncomplicated opioid dependence (CMS/HCC) (HCC) documented in this encounter Additional Health Concerns Assessment Noted Time PHQ-9 Depression Total Score: 0 07/01/20 23 1:10 PM EST documented as of this encounter Care Teams Director Of Health Education Relationship Specialty Start Date End Date Galo Fang MD [address] [place] [phone] PCP - General Internal Medicine 04/04/14 documented as of this encounter
--- OUTSIDE RECORDS SUMMARY | 2025-05-14 10:23 | XMS_ITS | Encounter Summary ---
Author Organization [employer] Address 75 [facility] 7t [place] [address] Care Team Providers Care Rice Milling Supervisor Name Role Phone Galo Fang MD Primary Care Provide r Reason for Visit * Reason Comments Med Refill Encounter Details Date Type Department Care Team ([facility] st Contact Info) Description 04/20/2024 Refill [facility] 230 [place], [place] [phone] Jocelyn Cruz FNP 230 [place] [address] Social History Tobacco Use Types Packs/Day Years [...] Description 06/22/2025 9:00 AM EST Office Visit [facility] MEDICINE 230 [place] [address] Carroll Roberts MD 230 [place] [address] 07/10/2025 10:00 AM EST Office Visit [facility] MEDICINE [address] [place] [address] Galo Fang MD [address] [place] [address] 09/21/2025 11:00 AM EST Office Visit [facility] OPTOMETRY [address] [place] [address] Paulo, Pat, OD 230 [place] [address] documented as of this encounter Visit Diagnoses Not on filedocumented in this encounter Additional Health Concerns Assessment Noted Time PHQ-9 Depression Total Score: 0 07/01/20 23 1:10 PM EST documented as of this encounter Care Teams Rice Milling Supervisor Relationship Specialty Start Date End Date Galo Fang MD [address] [place] [phone] PCP - General Internal Medicine 04/04/14 documented as of this encounter
--- OUTSIDE RECORDS SUMMARY | 2025-05-14 10:23 | XMS_ITS | Encounter Summary ---
Author Organization [employer] Address [address] [facility] 7t [place] [address] Care Team Providers Care Blending Operator Name Role Phone Galo Fang MD Primary Care Provide r Reason for Visit * Reason Onset Date Comments Med Refill 12/29/2024 Encounter Details Date Type Department Care Team (Late st Contact Info) Description 12/29/2024 Refill [facility] MEDICINE [address] [place] [address] 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 RN Uncomplicated opioid dependence (CMS/HCC) [...] t he electric, gas, oil or water [employer] threatened to shut off services in your [...] 06/22/2025 9:00 AM EST Office Visit [facility] MEDICINE [address] [place] [address] Carroll Roberts MD [address] [place] [address] 07/10/2025 10:00 AM EST Office Visit [facility] MEDICINE [address] [place] [address] Galo Fang MD [address] [place] [address] 09/21/2025 11:00 AM EST Office Visit [facility] OPTOMETRY [address] [place] [address] Pat Bates, OD 230 [place] [address] documented as of this encounter Goals Goal [...] documented as of this encounter Care Teams Blending Operator Relationship Specialty Start Date End Date Galo Fang MD [address] [place] [address] PCP - General Internal Medicine 04/04/14 documented as of this encounter
--- OUTSIDE RECORDS SUMMARY | 2025-05-14 10:23 | XMS_ITS | Encounter Summary ---
Author Organization [employer] Address [address] [place] [address] [address] [address] Care Team Providers Care Floatlight Loading Supervisor Name Role Phone Galo Fang MD Primary Care Provide r Reason for Visit * Reason Comments Med Refill Encounter Details Date Type Department Care Team ([facility] Contact Info) Description 04/27/2023 Refill [facility] MEDICINE [address] [place] [phone] Carroll Roberts MD [address] [place] [address] [phone] Uncomplicated opioid dependence (CMS/HCC) Social History Tobacco [...] Description 06/22/2025 9:00 AM EST Office Visit [facility] MEDICINE [address] [place] [address] Carroll Roberts MD [address] [place] [address] 07/10/2025 10:00 AM EST Office Visit [facility] MEDICINE [address] [place] [address] Galo Fang MD [address] [place] [address] [phone] 09/21/2025 11:00 AM EST Office Visit [facility] OPTOMETRY [address] [place], [place] [phone] Pat Bates, OD 230 [place], [place] [phone] documented as of this encounter Visit Diagnoses Diagnosis Uncomplicated opioid dependence (CMS/HCC) (HCC) documented in this encounter Care Teams Floatlight Loading Supervisor Relationship Specialty Start Date End Date Galo Fang MD 230 [place], [place] [phone] PCP - General Internal Medicine 04/04/14 documented as of this encounter
--- OUTSIDE RECORDS SUMMARY | 2025-05-14 10:23 | XMS_ITS | Patient Health Record ---
Author Organization [facility] Address [address] [place] [address] Care Team Providers Care Road Train Driver Name Role Phone Ahmet Abbasi Unavailable [phone] Reason For Referral No Information Plan Of Treatment No Information
--- OUTSIDE RECORDS SUMMARY | 2025-05-14 10:23 | XMS_ITS | Encounter Summary ---
Author Organization [employer] Address 75 [facility] 7t [place] [address] Care Team Providers Care Education Rn Name Role Phone Galo Fang MD Primary Care Provide r Reason for Visit * Reason Comments Med Refill Encounter Details Date Type Department Care Team ([facility] st Contact Info) Description 04/20/2024 Refill [facility] [address] [place] [address] [phone] Karuna Covington MD [address] [place] [address] Foreign body sensation, right eye Social History [...] AM EST Office Visit [facility] MEDICINE 230 [place] [address] Carroll Roberts MD [address] [place] [address] 07/10/2025 10:00 AM EST Office Visit [facility] MEDICINE 230 [place] [address] Galo Fang MD [address] [place] [address] 09/21/2025 11:00 AM EST Office Visit [facility] OPTOMETRY [address] [place] [address] Paulo, Pat, OD 230 [place] [address] documented as of this encounter Visit Diagnoses Diagnosis Foreign body sensation, right eye documented in this encounter Additional Health Concerns Assessment Noted Time PHQ-9 Depression Total Score: 0 07/01/20 23 1:10 PM EST documented as of this encounter Care Teams Education Rn Relationship Specialty Start Date End Date Galo Fang MD [address] [place] [phone] PCP - General Internal Medicine 04/04/14 documented as of this encounter
--- OUTSIDE RECORDS SUMMARY | 2025-05-14 10:23 | XMS_ITS | Encounter Summary ---
Author Organization [employer] Address [address] [facility] 7t [place] [address] Care Team Providers Care Faculty Administrator Name Role Phone Galo Fang MD Primary Care Provide r Reason for Visit * Reason Comments Med Refill Encounter Details Date Type Department Care Team ([facility] st Contact Info) Description 10/08/2023 Refill [facility] MEDICINE [address] [place] [address] Carroll Roberts MD [address] [place], [place] [phone] Uncomplicated opioid dependence (CMS/HCC) Social History Tobacco [...] 9:00 AM EST Office Visit [facility] MEDICINE [address] [place] [address] Carroll Roberts MD [address] [place] [address] 07/10/2025 10:00 AM EST Office Visit [facility] MEDICINE [address] [place] [address] Galo Fang MD [address] [place] [address] 09/21/2025 11:00 AM EST Office Visit [facility] OPTOMETRY [address] [place] [address] PauloPat womack, OD 230 [place] [address] documented as of this encounter Visit Diagnoses Diagnosis Uncomplicated opioid dependence (CMS/HCC) (HCC) documented in this encounter Additional Health Concerns Assessment Noted Time PHQ-9 Depression Total Score: 0 07/01/20 23 1:10 PM EST documented as of this encounter Care Teams Faculty Administrator Relationship Specialty Start Date End Date Galo Fang MD [address] [place] [address] PCP - General Internal Medicine 04/04/14 documented as of this encounter
--- OUTSIDE RECORDS SUMMARY | 2025-05-14 10:23 | XMS_ITS | Clinical Summary ---
Author Organization [employer] Address [address] [place] [address] Care Team Providers Care Opinion Polls Survey Worker Name Role Phone Galo Fang MD [...] 2 WEEKS 023 Active Continuous Blood Gluc Trust Evaluation Supervisor (FreeStyle Yahaira 2 Ambler) device USE DIRECTED 023 Active FREESTYLE LITE [...] polyneuropathy, with long-term current use of insulin (HCC) Take 1 tablet (20 mg) by mouth [...] THE MORNING 90 capsule 1 025 Active omeprazole (PriLOSEC) [address] capsuleIndicati ons:Gastroesoph ageal reflux disease without esophagitis TAKE 1 CAPSULE BY MOUTH EVERY DAY IN THE MORNING 90 capsule 1 024 2024 Discontinued Active Problems Problem Noted Date Diagnosed Date Hospital discharge follow-up 04/10/2025 Assessment & Plan (04/10/2025 9:13 AM EDT): Pt here for a HDF Admitted to [facility] from 03/18-03/21/2025 after he presented with c/o [...] acute bony abnormality. Pt was seen by [employer] 05/17/2024 work up in progress Assessment & [...] and L1-L2 levels. Under the care of [facility] pain Management, they recommended PT [...] to decline PT Pt was [facility], pt did not go. Previous plain film of LS spine unremarkable Plan:Plain films LS Spine, right hip [facility] Assessment & Plan (04/06/2023 1:21 PM EDT): [...] PSA 09/05/2024 : Normal, Colonoscopy: 07/29/2018 at [facility] diverticulosis Assessment & Plan (09/12/2024 9:25 AM EST): PSA 04/06/2023 : Normal, repeat ordered Colonoscopy: 07/29/2018 at [facility] diverticulosis Assessment & Plan (07/01/2023 1:02 PM EST): PSA 04/06/2023 : Normal Colonoscopy: 07/29/2018 at [facility] diverticulosis Assessment & Plan (04/06/2023 1:22 PM EDT): Colonoscopy: 07/29/2018 at [facility] diverticulosis Aortic valve stenosis 07/17/2022 Assessment & [...] LVEF of 50-55% per Dr Frank elaine Assessment & Plan (09/12/2024 9:26 AM EST): [...] exam was last done by Dr. Littlejohn (job printer apprentice) No diabetic retinopathy. 07/31/2024 Microalbumin checked on: 11/29/2023 was: 7 Pt is on ARB (lisinopril caused him itchy throat and ? angioedema ? ) . Foot check risk of zero Pt reports compliance with Asa 81 mg po daily Plan: As per [employer] Service Team Member Pt advised to: adhere to diabetic diet [...] exam was last done by Dr. Littlejohn (job printer apprentice) No diabetic retinopathy. 07/31/2024 Microalbumin checked on: 11/29/2023 was: 7 Pt is on ARB (lisinopril caused him itchy throat and ? angioedema ? ) . Foot check risk of zero Pt reports compliance with Asa 81 mg po daily Plan: As per [employer] Service Team Member Pt advised to: adhere to diabetic diet [...] exam was last done by Dr. Littlejohn (job printer apprentice) No diabetic retinopathy. 07/31/2024 Microalbumin checked on: 11/29/2023 was: 7 Pt is on ARB (lisinopril caused him itchy throat and ? angioedema ? ) . Foot check risk of zero Pt reports compliance with Asa 81 mg po daily Plan: as per [employer] Service Team Member Pt advised to: adhere to diabetic diet [...] exam was last done by Dr. Littlejohn (job printer apprentice) No diabetic retinopathy. Microalbumin checked on: 11/29/2023 was: 7 Pt is no longer on an WALDEMAR inhibitor. (lisinopril caused him itchy throat and ? angioedema ? ) . Foot check risk of zero Pt reports compliance with Asa 81 mg po daily Plan: as per [employer] Service Team Member Pt advised to: adhere to diabetic diet [...] exam was last done by Dr. Littlejohn (job printer apprentice) No diabetic retinopathy. Microalbumin checked on: 01/14/2021 was: 22 Pt is no longer on an WALDEMAR inhibitor. (lisinopril caused him itchy throat and ? angioedema ? ) . Foot check risk of zero Pt reports compliance with Asa 81 mg po daily Plan: as per [employer] Service Team Member Pt advised to: adhere to diabetic diet [...] exam was last done by Dr. Littlejohn (job printer apprentice) No diabetic retinopathy. Microalbumin checked on: 01/14/2021 was: 22 Pt is no longer on an WALDEMAR inhibitor. (lisinopril caused him itchy throat and ? angioedema ? ) . Will repeat Foot check risk of zero Pt reports compliance with Asa 81 mg po daily Plan: as per [employer] Service Team Member Pt advised to: adhere to diabetic diet [...] exam was last done by Dr. Littlejohn (job printer apprentice) No diabetic retinopathy. Microalbumin checked on: 01/14/2021 was: 22 Pt is no longer on an WALDEMAR inhibitor. (lisinopril caused him itchy throat and ? angioedema ? ) Foot check risk of zero Pt reports compliance with Asa 81 mg po daily Plan: as per [employer] Service Team Member Pt advised to: adhere to diabetic diet check your blood sugars regularly check your feet on a daily basis f/u 3 months Depressive disorder 08/16/1959 Assessment & Plan (09/12/2024 1:10 PM EST): Pt with Hx of Depression In the past used to follow with Dr Bar, Pt has a horologist apprentice pet who he attributes the fact that [...] Encounters Date Type Department Care Team Description 05/11/2025 4:00 PM EDT Office Visit [facility] [address] [place] [address] Susan Arriaga MD Pain of left calf (Primary Dx) 05/11/2025 Travel 04/30/2025 Orders Only GENERIC EXTERNAL DATA DEPARTMENT Provider, Generic External Data 04/30/2025 Telephone [facility] [address] [place] [address] Galo Fang MD June04/24/2025 Travel 04/16/2025 Refill [facility] [place] [address] Galo Fang MD Gastroesophageal reflux disease without esophagitis 04/11/2025 Refill [facility] [address] [place] [address] Galo Fang MD 04/10/2025 9:30 AM EDT Office Visit [facility] [address] [place] [address] Galo Fang MD Hospital discharge follow-up (Primary Dx); Type 2 diabetes mellitus with diabetic polyneuropathy, with long-term current use of insulin ([facility]); Essential hypertension; History of aortic valve replacement 04/10/2025 Travel 04/09/2025 Telephone [facility] [address] [place] [address] Galo Fang MD CHART PREP 03/30/2025 9:00 AM EDT Clinical Support [facility] [place] [address] 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, RN Opioid use disorder in remission 03/30/2025 Travel 03/23/2025 Refill [facility] [address] [place] [address] Deidre Anton, GULSHAN Opioid use disorder in remission 03/22/2025 Patient Outreach [facility] [address] [place] [address] Galo Fang MD Transition Of Care (Tcm) (HDF scheduled) 03/18/2025 Orders Only GENERIC EXTERNAL DATA DEPARTMENT Provider, Generic External Data 03/16/2025 Refill [facility] [place] [address] Galo Fang MD 03/13/2025 1:15 PM EDT Office Visit [facility] [place] [address] Galo Fang MD Type 2 diabetes mellitus with diabetic polyneuropathy, with long-term current use of insulin ([facility]) (Primary Dx); Essential hypertension; Mixed hyperlipidemia; History of aortic valve replacement; Class 2 severe obesity due to excess calories with serious comorbidity and body mass index (BMI) of 35.0 to 35.9 in adult (CMS/HCC); Dietary counseling; Exercise counseling; Preventative health care; Erectile dysfunction due to diseases classified elsewhere 03/13/2025 Travel 03/12/2025 Telephone [facility] [place] [address] Galo Fang MD Chart Prep 03/06/2025 Patient Outreach [facility] [place] [address] Galo Fang MD Pre-visit Planning (SDOH screening was completed on 08/31/2024) 02/28/2025 Orders Only GENERIC EXTERNAL DATA DEPARTMENT Provider, Generic External Data 02/15/2025 Refill [facility] [address] [place] [address] Galo Fagn MD from Last 3 Months Immunizations Immunization [...] (219 lb) 05/11/2025 3:50 PM EDT Height 170.2 cm (5' 7 ) 04/10/2025 8:57 AM EDT Body Mass Index 34.3 04/10/2025 8:57 AM EDT Plan of Treatment Upcoming Encounters Date Type Department Care Team (Late st Contact Info) Description 06/22/2025 9:00 AM EST Office Visit [facility] [address] [place] [address] Carroll Roberts MD [address] [place] [address] 07/10/2025 10:00 AM EST Office Visit [facility] [address] [place] [address] Galo Fang MD [address] [place] [address] 09/21/2025 11:00 AM EST Office Visit [facility] [address] [place] [address] Pat Bates, OD [address] [place] [address] Health Maintenance Due Date Last Done Comments [...] Screening 04/10/2026 04/10/2025, 04/10/20 25 Tobacco Screening 05/11/2026 05/11/2025 Eye Exam 07/31/2026 07/31/2024, 07/16, 07/31/2024, Additional [...] polyneuropathy, with long-term current use of insulin ([facility]) POCT GLUCOSE Routine 04/10/2025 9:00 AM EDT Type 2 diabetes mellitus with diabetic polyneuropathy, with long-term current use of insulin ([facility]) CTA CHEST W AND WO CONTRAST Routine [...] polyneuropathy, with long-term current use of insulin ([facility]) POCT GLYCOSYLATED HEMOGLOBIN (HGB A1C) Routine 03/13/2025 1:26 PM EDT Type 2 diabetes mellitus with diabetic polyneuropathy, with long-term current use of insulin ([facility]) TSH W/REFLEX TO FT4 Routine [...] Whole Blood 189(H) 60 - 115 mg/dL [facility] Comment:METER #: [id number] 0Testing performed in the Endocrinology Department [address] , [address], [facility]. 04/30/2025 1:32 PM EDT 04/30/2025 1:36 PM EDT us Generic External Data Provider LAB BLOOD ORDERAB LES Final Result Performing Organization Address City/State/RUST Co de Phone Number [facility] [address] [place] [phone] * (ABNORMAL) POCT HGB A1C (04/10/2025 9:07 AM EDT) Pathologist [facility] Hemoglobin A1C 7.6(A) 4.0 - 5.7 % QC Media Lot # [id number] Lot# Expiration Date [id number] Blood 04/10/2025 9:07 AM EDT us Galo Ramey MD POINT OF CARE TEST EN TER/EDIT ORDERABLES Final Result * POCT Glucose (04/10/2025 9:00 AM EDT) Only the most recent of2 resultswithin the time period is included. Glucose Blood, POC 179 60 - 200 mg/dL Comment:random QC Media Lot # [id number] Lot# Expiration Date [id number] Blood Capillary blood specimen / Unknown 04/10/2025 9:00 AM EDT us Galo Ramey MD POINT OF CARE TEST EN TER/EDIT ORDERABLES Final Result * CTA Abdomen Pelvis w/ and w/o Contrast (03/18/2025 11:23 AM EDT) Anatomical Region Laterality Modality Body, Pelvis, Abdomen Computed T omography 03/18/2025 11:2 3 AM EDT Narrative 03/18/2025 11:25 AM EDT [address] [address] [address] Scan Report Signed Patient: Nemesio Brown MR#: [id number] : 1960 Acct:[id number] Age/Sex: 64 / M ADM Date: 03/18/25 Loc: .ED Attending Dr: Ordering Physician: Elise Mccartney Date of Service: 03/18/25 Procedure(s): CT angio abdomen pelvis Accession Number(s): [id number] cc: Galo Prajapati MD; Elise Mccartney Report Number: [id number]: Total DLP = 671.00 mGy-cm CLINICAL HISTORY: r o dissection CT angiography chest, abdomen and pelvis with contrast. 3-D postprocessing. Comparison: None provided Findings: There is mild ectasia of the ascending thoracic aorta. The patient is status post aortic valve replacement. There is no evidence of aortic dissection. There are ldkv-fi-qopaqbib coronary artery calcifications. There is a small [...] 03/18/25 1124 DD/ 1123 TD/TT: 03/18/25 1123 Support Merchandiser: Procedure Note Donotuseinterpreter, Image - 03/18/[address] [place] [address] [address] Scan Report Signed Patient: Raul RamírezOscarMR#: [id number] : 1960Acct:[id number] Age/Sex: 64 / MADM Date: 03/18/25 Loc: HO.ED Attending Dr: Ordering Physician: Elise Mccartney Date of Service: 03/18/25 Procedure(s): CT angio abdomen pelvis Accession Number(s): [id number] cc: Galo Prajapati MD; Elise Mccartney Report Number: [id number]: Total DLP = 671.00 mGy-cm CLINICAL HISTORY: r o dissection CT angiography chest, abdomen and pelvis with contrast. 3-D postprocessing. Comparison: None provided Findings: There is mild ectasia of the ascending thoracic aorta. The patient is status post aortic valve replacement. There is no evidence of aortic dissection. There are pefm-xc-chrkosfv coronary artery calcifications. There is a small [...] 03/18/25 1124 DD/ 1123 TD/TT: 03/18/25 1123 Support Merchandiser: [facility] External Provider IMG CT PROCEDURES Edited Result - Final * CTA Chest w/ and w/o Contrast (03/18/2025 11:23 AM EDT) Anatomical Region Laterality Modality Body, Chest Computed Tomogra phy 03/18/2025 11:2 3 AM EDT Narrative 03/18/2025 11:25 AM EDT [address] [address] [address] Scan Report Signed Patient: Nemesio Brown MR#: [id number] : 1960 Acct:[id number] Age/Sex: 64 / M ADM Date: 03/18/25 Loc: HO.ED Attending Dr: Ordering Physician: Elise Mccartney Date of Service: 03/18/25 Procedure(s): CT angio chest aorta Accession Number(s): [id number] cc: Galo Prajapati MD; Elise Mccartney Report Number: [id number]: Total DLP = 0.00 mGy-cm CLINICAL HISTORY: r o dissection CT angiography chest, abdomen and pelvis with contrast. 3-D postprocessing. Comparison: None provided Findings: There is mild ectasia of the ascending thoracic aorta. The patient is status post aortic valve replacement. There is no evidence of aortic dissection. There are fxlg-uj-swmkkkmd coronary artery calcifications. There is a small [...] 03/18/25 1124 DD/ 1123 TD/TT: 03/18/25 1123 Support Merchandiser: Procedure Note Donotuseinterpreter, Image - 03/18/[address] [place] [address] [address] Scan Report Signed Patient: Shayla Brown#: [id number] : 1960Acct:[id number] Age/Sex: 64 / MADM Date: 03/18/25 Loc: .ED Attending Dr: Ordering Physician: Elise Mccartney Date of Service: 03/18/25 Procedure(s): CT angio chest aorta Accession Number(s): [id number] cc: Galo Prajapati MD; Elise Mccartney Report Number: [id number]: Total DLP = 0.00 mGy-cm CLINICAL HISTORY: r o dissection CT angiography chest, abdomen and pelvis with contrast. 3-D postprocessing. Comparison: None provided Findings: There is mild ectasia of the ascending thoracic aorta. The patient is status post aortic valve replacement. There is no evidence of aortic dissection. There are ikrz-hq-vahoffxl coronary artery calcifications. There is a small [...] 03/18/25 1124 DD/ 1123 TD/TT: 03/18/25 1123 Support Merchandiser: [facility] External Provider IMG CT PROCEDURES Edited Result - Final * (ABNORMAL) High Sensitivity Troponin I (03/18/2025 9:29 AM EDT) TROPONIN I HIGH SENSITIVITY 159.4(HH) <3.5 - 35.0 ng/L [facility] Comment:Critical value for T ROPONIN: Results called to and readback by: CHUCHO Person calling: PUJA Date: 03-18-25 Time:1032The Meza high sensitivity Troponin-I results should beused in conjunction with other diagnostic information suchas ECG, clinical observations and information, and patientsymptoms to aid in the diagnosis of NC. 03/18/2025 9:29 AM EDT 03/18/2025 9:32 AM EDT Generic External Data Provider LAB BLOOD ORDERAB LES Final Result Performing Organization Address [facility]/State/ZIP Co de Phone Number [facility] [address] [place] [phone] * HOLD LT BLUE - POSSIBLE COAG (03/18/2025 9:29 AM EDT) Hold Lt Blue - Possible Coag SEE NOTE [facility] Comment:Specimen will be hel d untested for 4 hours. Call Hematologyif testing is desired. 03/18/2025 9:29 AM EDT 03/18/2025 9:34 AM EDT Generic External Data Provider LAB BLOOD ORDERAB LES Final Result Performing Organization Address [facility]/State/ZIP Co de Phone Number [facility] [address] [place], [place] [phone] * (ABNORMAL) CBC auto differential (03/18/2025 9:29 AM EDT) White Blood Count 7.4 4.8 - 10.8 X10*3/uL [facility] Red Blood Count 4.10(L) 4.60 - 5.80 X10*6/uL [facility] Hemoglobin 11.5(L) 14.0 - 18.0 g/dl [facility] Hematocrit 34.8(L) 42.0 - 52.0 % [facility] Mean Corpuscular Volume 84.9 80.0 - 98.0 fL [facility] Mean Corpuscular Hemoglobin 28.0 27.0 - 33.0 pg [facility] Mean Corpuscular HGB Conc 33.0 31.0 - 36.0 g/dl [facility] Red Cell Distribution Width 14.3 11.0 - 16.0 % [facility] Platelet Count 173 160 - 400 X10*3/uL [facility] Mean Platelet Volume 9.6 9.4 - 12.4 fL [facility] Neutrophils Percent Auto 68.5 45 - 73 % [facility] Imm Gran Pct Auto 0.3 0.0 - 0.4 % [facility] Lymphocytes Percent Auto 20.8 20 - 40 % [facility] Monocytes Percent Auto 6.9 2 - 11 % [facility] Eosinophils Percent Auto 3.0 0 - 4 % [facility] Basophils Percent Auto 0.5 0 - 2 % [facility] NRBC Pct Auto 0.0 0.0 - 0.2 /100WBC [facility] Neutrophils Absolute Auto 5.0 2.0 - 8.3 x10*3/uL [facility] Imm Gran Abs Auto 0.02 0.00 - 0.03 X10*3/uL [facility] Lymphocytes Absolute Auto 1.5 1.2 - 4.9 X10*3/uL [facility] Monocytes Absolute Auto 0.5 0.1 - 1.2 X10*3/uL [facility] Eosinophils Absolute Auto 0.2 0.0 - 0.4 X10*3/uL [facility] Basophils Absolute Auto 0.0 0.0 - 0.2 X10*3/uL [facility] NRBC Abs Auto 0.000 0.0 - 0.012 X10*3/uL [facility] 03/18/2025 9:29 AM EDT 03/18/2025 9:32 AM EDT us Generic External Data Provider LAB BLOOD ORDERAB LES Final Result Performing Organization Address [facility]/[place] Co de Phone Number [facility] [address] [place] [phone] * (ABNORMAL) B Type Natriuretic Peptide (BNP) (03/18/2025 9:29 AM EDT) B Type Natriuretic Peptide 387(H) <100 pg/mL [facility] 03/18/2025 9:29 AM EDT 03/18/2025 10:37 AM EDT us Generic External Data Provider LAB BLOOD ORDERAB LES Final Result Performing Organization Address [facility]/[place] Co de Phone Number [facility] [address] [place] [address] [phone] * Magnesium (03/18/2025 9:29 AM EDT) Magnesium 2.0 1.6 - 2.6 mg/dL [facility] 03/18/2025 9:29 AM EDT 03/18/2025 9:32 AM EDT us Generic External Data Provider LAB BLOOD ORDERAB LES Final Result Performing Organization Address [facility] Co de Phone Number [facility] [address] [place] [address] [phone] * Lipase (03/18/2025 9:29 AM EDT) Lipase 10 8 - 78 U/L [facility] 03/18/2025 9:29 AM EDT 03/18/2025 9:32 AM EDT us Generic External Data Provider LAB BLOOD ORDERAB LES Final Result [facility] [address] [place] [phone] * (ABNORMAL) Comprehensive Metabolic Panel (03/18/2025 9:29 AM EDT) Sodium 136 135 - 145 mmol/L [facility] Potassium 4.3 3.3 - 5.1 mmol/L [facility] Chloride 102 96 - 108 mmol/L [facility] Carbon Dioxide 27 22 - 29 mmol/L [facility] Anion Gap 11(L) 12 - 20 [facility] Urea Nitrogen (BUN) 15 9 - 16 mg/dL [facility] Creatinine, Serum 0.81 0.5 - 1.4 mg/dL [facility] Creatinine Clr Calc Pharmacy 103.8 [facility] Comment:eGFR (calculated fro m the MDRD study equation) and eCrCl(calculated from the Cockcroft-Gault equation) are based ondifferent parameters and may not yield comparable results.If eCrCl result is absurd, please check patient'sheight/weight. Estimated Glomerular Filt Rate >60 [facility] Comment:Chronic Kidney Disea se: Estimated GFR < 60 mL/min/1.62g6Zkbopo Kidney Disease: Estimated GFR < 15 mL/min/1.73m2 Glucose 148(H) 60 - 115 mg/dL [facility] Calcium 8.5 8.4 - 10.2 mg/dL [facility] Bilirubin, Total 0.5 0.0 - 1.0 mg/dL [facility] Aspartate Amino Transferase 23 5 - 37 U/L [facility] Alanine Aminotransferase 27 0 - 40 U/L [facility] Total Protein 6.8 6.5 - 8.0 g/dL [facility] Albumin Level 4.1 3.5 - 5.0 g/dL [facility] Alkaline Phosphatase 73 39 - 117 U/L [facility] 03/18/2025 9:29 AM EDT 03/18/2025 9:32 AM EDT Generic External Data Provider LAB BLOOD ORDERAB LES Final Result Performing Organization Address City/[facility]/ZIP Co de Phone Number [facility] [address] [place] [phone] * (ABNORMAL) POCT glycosylated hemoglobin (Hgb [...] Free T4 2.05 0.32 - 4.0 uIU/mL [facility] 02/28/2025 10:0 4 AM EDT 02/28/2025 10:04 AM EDT Generic External Data Provider LAB BLOOD ORDERAB LES Final Result Performing Organization Address City/[facility]/ZIP Co de Phone Number [facility] [address] [place] [phone] * Platelet Count (02/28/2025 10:04 AM EDT) Platelet Count 264 160 - 400 X10*3/uL [facility] 02/28/2025 10:0 4 AM EDT 02/28/2025 10:04 AM EDT Generic External Data Provider LAB BLOOD ORDERAB LES Final Result Performing Organization Address [facility] Phone Number [facility] [address] [place] [address] [phone] * ALT (02/28/2025 10:04 AM EDT) Alanine Aminotransferase 28 0 - 40 U/L [facility] 02/28/2025 10:0 4 AM EDT 02/28/2025 10:04 AM EDT Generic External Data Provider LAB BLOOD ORDERAB LES Final Result Performing Organization Address [facility] Phone Number [facility] [address] [place] [address] [phone] * Amylase (02/28/2025 10:04 AM EDT) Amylase 78 28 - 100 U/L [facility] 02/28/2025 10:0 4 AM EDT 02/28/2025 10:04 AM EDT Generic External Data Provider LAB BLOOD ORDERAB LES Final Result Performing Organization Address [facility] Phone Number [facility] [address] [place] [address] [phone] * (ABNORMAL) Lipid Panel, Standard (02/28/2025 10:04 AM EDT) Triglycerides 187(H) <150 mg/dL [facility] Comment:Desirable Triglyceri de: less than 150 mg/dLBorderline High Triglyceride 150-199 mg/dLHigh Triglyceride: 200-499 mg/dLVery High Triglyceride: greater than or equal to 5OO mg/dL Cholesterol 164 <200 mg/dL [facility] Comment:Desirable Cholestero l: less than 200 mg/dLBorderline High Cholesterol: 200-239 mg/dLHigh Cholesterol: greater than 239 mg/dL LDL Cholesterol Calculated 91 <100 mg/dL [facility] Comment:Desirable LDL: less than 100 mg/dLNear Optimal/Above Optimal LDL: 110- 129 mg/dLBorderline High LDL: 130-159 mg/dLHigh LDL: 160-189 mg/dLVery High LDL: greater than or equal to 190 mg/dL HDL Cholesterol 36(L) >40 mg/dL [facility] Comment:Desirable HDL: great er than 40 mg/dL Note: This HDL assay may give artificially low results in patients with liver disease. 02/28/2025 10:0 4 AM EDT 02/28/2025 10:04 AM EDT us Generic External Data Provider LAB BLOOD ORDERAB LES Final Result Performing Organization Address [facility] de Phone Number [facility] [address] [place] [address] [phone] * Albumin, Random Urine W/Creatinine (02/28/2025 10:02 AM EDT) Creatinine, Urine 208.62 mg/dL [facility] Microalbumin Urine 26.0 mg/L [facility] Microalbum Creatinine Ratio Ur 12.4 <30 ug/mg cr [facility] Comment:Albumin/Creatinine R atio Reference Ranges: Normal: < 30 ug/mg creatinine Microalbuminuria: 30 - 300 ug/mg creatinineClinical Albuminuria: > 300 ug/mg creatinine 02/28/2025 10:0 2 AM EDT 02/28/2025 10:36 AM EDT us Generic External Data Provider LAB URINE ORDERAB LES Final Result Performing Organization Address [facility] [employer] de Phone Number [facility] [address] [place] [phone] * Hepatitis Panel, General (06/07/2024 10:41 AM EDT) Hepatitis A IgM Nonreactive Nonreactive [facility] Comment:IgM antibodies to ALBRECHT V not detected; does not exclude earlyacute or recovered HAV infection. ~Hepatitis B Surface Antibody NONREACTIVE Nonreactive [facility] Comment:Nonreactive: < 8.00 mIU/mL Hepatitis B Core Antibody Nonreactive Nonreactive [facility] Hepatitis C Antibody Nonreactive Nonreactive [facility] Comment:Antibodies to HCV no t detected; does not exclude early acuteHCV infection. Hepatitis B Surface Ag Negative Negative [facility] 06/07/2024 10:4 1 AM EDT 06/07/2024 10:41 AM EDT Generic External Data Provider LAB BLOOD ORDERAB LES Final Result [facility] [address] [place] [phone] * HIV-1/2 Antigen and Antibodies, Fourth Generation, with Reflexes (06/07/2024 10:41 AM EDT) HIV AB/AG Nonreactive Nonreactive [facility] Comment:HIV-1 p24 Ag and/or HIV-1/HIV-2 Ab not detected.A test result that is nonreactive does not exclude thepossibility of exposure to or infection with HIV-1 and/orHIV-2. Nonreactive results in this assay for individualswith prior exposure to HIV-1 and/or HIV-2 may be due toantigen and antibody levels that are below the limit ofdetection of this assay.The [employer] HIV Ag/Ab Combo assay result andsupplemental assay results should be interpreted inconjunction with the patient's clinical presentation,history and other laboratory results. If the results areinconsistent with clinical evidence, additional testing issuggested to confirm the result. Blood Venous blood specimen / Unknown 06/07/2024 10:41 AM EDT 06/07/2024 10:41 AM EDT us Carroll Roberts MD LAB BLOOD ORDERABLES Final Res ult [facility] [address] [place] [phone] * Colonoscopy (07/29/2018) Colonoscopy Normal Normal 07/29/2018 Georgia Orozco - 07/29/2018 1:52 PM EST Recommended 10 year follow up Historical Provider HEALTH MAINTENANCE Final Result from Last 3 Months or Most Recently Relevant to Health Maintenance Insurance Scan•Jour C3 Care Teams Opinion Polls Survey Worker Relationship Specialty Start Date End Date Galo Fang MD [address] [place] [address] PCP - General Internal Medicine 04/04/14
[2025-05-14 10:42] LABS: D Dimer High Sensitivity 278 NG/ML
== END 2025-05-14 09:32 | disposition home or self-care (01) ==
LOC: HO.LAB 09:31
PROVIDERS: PCP Internal Medicine; Visit Provider Internal Medicine
DX: M79.662 Pain in left lower leg (principal)
CPT/HCPCS: 36415; 85379

== ENCOUNTER 2025-05-14 12:00 | Emergency (ER) | payer MEDICAID, SELFPAY ==
--- NOTE | ~2025-05-14 | US_ITS ---
EXAMINATION: US TRIPLEX LOWER EXTREMITY, LEFT CLINICAL INFORMATION: Edema and pain, left lower extremity COMPARISON: None available. TECHNIQUE: Color-flow triplex imaging with spectral analysis and compression Doppler were performed on the left lower extremity. FINDINGS: Respiratory variation, normal compression and augmented flow are demonstrated in the interrogated left common femoral vein, superficial femoral vein, profunda femoral vein, popliteal vein and midcalf peroneal and posterior tibial venous segments . There is no Guerin's cyst. US/US venous duplex LE IMPRESSION: No acute deep venous thrombosis interrogated veins, left lower extremity. Negative for DVT. Electronically signed by: Fabricio Gentile MD 05/14/2025 01:04 PM EDT
[2025-05-14 12:16] VITALS: BP 114/62; PULSE 84; RESP 16; TEMP 36.3; O2SAT 97; BMI 34.0
--- NOTE | 2025-05-14 12:19 | ED_ITS ---
HPI - General Adult General Chief complaint: Extremity Problem Stated complaint: abnormal blood work Time Seen by Provider: 05/14/25 13:28 Source: patient Mode of arrival: ambulatory Limitations: no limitations History of Present Illness ED Provider: Johnna Banks PA-C HPI narrative: 64 y/o male wit history of DM2, cardiomyopathy s/p PPM, hx bioprosthetic aortic valve replacement, opioid dependence on suboxone, HTN, HLD, TAMARA, who presents to the ER for evaluation of left calf pain for the last 2 weeks. He reports he had outpatient blood work, was called with the results and told to come to the ER immediately to rule out a blood clot. Patient reports that the pain started suddenly when he was walking, it is nonradiating, constant, sharp pain in the back of his left calf. It is worse with walking and palpation. There is no associated swelling of the leg, no chest pain, no shortness of breath, no proximal leg pain or pain on the right side. He is not on anticoagulation. No recent travel or prolonged periods of immobilization. No history of blood clots in the past. Does report muscle cramping and aching at nighttime. MD complaint: Left calf pain Onset (ago): week(s) (2) Location: left and lower extremity Radiation: non-radiation Severity: severe Quality: sharp Pain Consistency: constant Relieving factors: rest Exacerbating factors: other (Walking) Associated symptoms: other (Muscle cramps) Treatments prior to arrival: none Related Data Home Medications ?Medication ?Instructions ?Recorded ?Confirmed omeprazole 20 mg capsule,delayed 20 mg PO DAILY 04/30/25 release aspirin 81 mg tablet,delayed 81 mg PO DAILY 05/15/24 0 04/30/25 release buprenorphine 8 mg-naloxone 2 mg 1 film sublingual LJ LY 05/15/24 04/30/25 sublingual film (Suboxone) carvedilol 12.5 mg tablet 12.5 mg PO BID 04/24/2504/16 Previous Rx's ?Medication ?Instructions ?Recorded blood-glucose meter (FreeStyle #1 ea 07/19/20 Lite Meter kit) lancets 28 gauge (FreeStyle #100 ea 07/31/21 Lancets) pen needle, diabetic 32 gauge x #125 ea 10/28/21 (BD Ultra-Fine Gisella Pen Needle) blood sugar diagnostic (FreeStyle 1 strip miscellaneou s TID #100 11/05/22 Lite Strips) strips insulin degludec 200 unit/mL (3 76 unit (0.38 mL) subc ut BEDTIME 10/27/24 mL) subcutaneous pen (Tresiba #12 mL FlexTouch U-200 insulin) insulin lispro 100 unit/mL 12 - 14 unit (0.12 - 0.14 m L) 10/27/24 subcutaneous pen subcut TID #15 mL valsartan 80 mg tablet 80 mg PO BID #180 tabs 11/06 blood-glucose sensor (FreeStyle #2 ea 01/26/25 Yahaira 3 Plus Sensor device) blood-glucose,restorer paper and prints,cont #1 ea 01/26/25 (FreeStyle Yahaira 3 [place]) tirzepatide 7.5 mg/0.5 mL 7.5 mg (0.5 mL) subcut QWEEK #2 mL 01/26/25 subcutaneous pen injector (Amador) empagliflozin 25 mg tablet 25 mg PO QAM 30 days #30 ta bs 02/15/25 (Jardiance) cholecalciferol (vitamin D3) 50 50 mcg PO DAILY #30 ca ps 04/30/25 mcg (2,000 unit) capsule Allergies Allergy/AdvReac Type Severity Reaction Status Date / Time dulaglutide (From [facility]) AdvReac Mild Diarrhea Verified 05/14/25 12:21 Review of Systems 2 Review of Systems: Yes all other systems are reviewed and are negative [facility] Past Medical History Medical History Osteoporosis History of cardiomyopathy Prosthetic valve dysfunction BMI 39.0-39.9,adult Cardiomyopathy TAMARA (obstructive sleep apnea) Opioid dependence Hypogonadism Polyarthropathy Erectile dysfunction Nephrolithiasis Depression Esophageal reflux Arthritis Asthma Hyperlipidemia LDL goal <70 Obesity due to excess calories Essential hypertension Type 2 diabetes mellitus with diabetic neuropathy, unspecified Surgical History History of heart valve replacement Hx of umbilical hernia repair Family History Family History Father Heart disease CVD (cardiovascular disease) Mother DM2 (diabetes mellitus, type 2) Social History Social History Household Members: None Alcohol intake: current Alcohol intake frequency: does not drink Patient Tobacco Use Status: Former Tobacco user Smoked in Last 30 Days: No Use of substances other than those prescribed or required for medical reasons: No Advance Directives: No Advance Directives Information Provided: Yes Do you have a plan to hurt others: No Plan Current occupational status: disabled Physical Exam ED Exam Exam: Appearance: Alert. Oriented X3. No acute distress. HEENT: normal inspection CVS: Normal heart rate and rhythm. +murmus Respiratory: No respiratory distress. Skin: Skin warm and dry. Normal skin color. Normal skin turgor. No rashes. Extremities: Normal inspection of the bilateral lower extremities. No peripheral edema. Posterior calf tenderness in the middle of the left calf with no palpable masses. Compartment is soft and compressible. No erythema or warmth. Neurovascularly intact distally. Nontender right calf. Neuro: Oriented X 3. No motor deficit. No sensory deficit. Vital Signs: Vital Signs - 24 hr 05/14/25 12:16 05/14/25 13:52 Temperature 97.3 F 98.2 F Pulse Rate 84 80 Respiratory Rate 16 18 Blood Pressure 114/62 118/81 Pulse Oximetry 97 98 Oxygen Delivery Method Room Air Room Air BMI result Body Mass Index 34.0 Course Course Course Narrative: Rapid medical examination performed in triage by Amee Acosta PA-C. Patient is a 64 year old assigned male at presenting to the emergency department with left calf pain and swelling. Patient states he was evaluated at the [facility] for left lower calf pain and had an elevated d dimer of 278. Detailed physical exam and review of systems are deferred to the railway traction line worker. Labs and imaging ordered. Patient placed back in the waiting room pending room availability and results. Medical Decision Making Medical Decision Making MDM Narrative: 64-year-old male with an extensive cardiac history, diabetes, TAMARA, substance use disorder who is presenting to the ER for evaluation of 2 weeks of left lower leg pain, mostly posteriorly, sharp, with ambulation and palpation. No swelling of the leg. No chest pain or shortness of breath. age adjusted DDIMER 320, VTE unlikely Lower extremity Doppler was done and was negative for DVT. Symptoms most likely muscular. We discussed symptomatic and supportive care with rest, ice, compression, elevation, NSAIDs/Tylenol. Patient is stable for discharge home with follow-up with his outpatient provider Differential Diagnosis Differential Diagnoses: The differential diagnosis associated with the presentation includes DVT, PVD, P 80, neuropathy from diabetes, muscle strain/spasm, dehydration, tendinopathy Lab Data MDM Lab Attestation statement: I reviewed the patient's lab results. Stable normocytic anemia, no leukocytosis 05/14/25 12:28 05/14/25 12:28 Labs: Lab Results 05/14/25 Range/Units 12:28 WBC 6.6 (4.8-10.8) X10*3/uL RBC 4.47 L (4.60-5.80) X10*6/uL Hgb 12.5 L (14.0-18.0) g/dl Hct 38.2 L (42.0-52.0) % MCV 85.5 (80.0-98.0) fL MCH 28.0 (27.0-33.0) pg MCHC 32.7 (31.0-36.0) g/dl RDW 13.2 (11.0-16.0) % Plt Count 185 (160-400) X10*3/uL MPV 9.2 L (9.4-12.4) fL Immature Gran % (Auto) 0.2 (0.0-0.4) % Neut % (Auto) 59.3 (45-73) % Lymph % (Auto) 28.7 (20-40) % Montague % (Auto) 5.6 (2-11) % Eos % (Auto) 5.3 H (0-4) % Baso % (Auto) 0.9 (0-2) % Lymph # (Auto) 1.9 (1.2-4.9) X10*3/uL Montague # (Auto) 0.4 (0.1-1.2) X10*3/uL Eos # (Auto) 0.4 (0.0-0.4) X10*3/uL Baso # (Auto) 0.1 (0.0-0.2) X10*3/uL Abs Immat Gran (auto) 0.01 (0.00-0.03) X10*3/uL Absolute Neuts (auto) 3.9 (2.0-8.3) x10*3/uL Absolute Nucleated RBC 0.000 (0.0-0.012) X10*3/uL Nucleated RBC % (auto) 0.0 (0.0-0.2) /100WBC PT 12.7 H (10.9-12.4) SEC INR 1.1 (0.9-1.1) Sodium 137 (135-145) mmol/L Potassium 4.6 (3.3-5.1) mmol/L Chloride 103 (96-108) mmol/L Carbon Dioxide 29 (22-29) mmol/L Anion Gap 10 L (12-20) BUN 22 H (9-16) mg/dL Creatinine 0.86 (0.5-1.4) mg/dL Estim Creat Clear Calc 97.0 Estimated GFR > 60 Random Glucose 188 H (60-115) mg/dL Calcium 8.6 (8.4-10.2) mg/dL Total Bilirubin 0.4 (0.0-1.0) mg/dL AST 23 (5-37) U/L ALT 17 (0-40) U/L Alkaline Phosphatase 75 (39-117) U/L NT-Pro-B Natriuret Pep 95.7 (<300) pg/mL Total Protein 7.1 (6.5-8.0) g/dL Albumin 4.3 (3.5-5.0) g/dL Independent Interpretation I performed an independent interpretation of an: Ultrasound Interpretation: No acute DVT seen in the left lower leg Radiology Impression Discussion of test interpretation with radiology: I have reviewed the radiologist's reading. Radiologist Impression: Negative study External Record Review External record reviewed: Office record, Outpatient record and Prior outpatient labs Prescription Management I considered prescription management with: Pain Medication, Antibiotic and Other (Anticoagulated) Chronic Conditions Patient?s care impacted by: Diabetes and Hypertension Critical Care Time Critical Care Time Critical Care Time: No Discharge Plan Discharge Clinical Impression: Acute pain of left lower extremity Patient Disposition: Home, Self-Care Instructions: Leg Cramps (ED), Leg Pain (ED) Additional Instructions: Your lab workup today was reassuring. Your ultrasound did not show any evidence of blood clot. Your pain is most likely muscular. Where the applied Matias wrap as needed for compression and support. Ice and elevate as needed for pain. Take Tylenol and/or ibuprofen as needed for pain. Follow-up with your primary care doctor. Make sure you are staying hydrated drinking plenty of fluids, fluid should contain some electrolytes to help with muscle cramping. If you develop new or worsening symptoms call 911 or come back to the ER for further evaluation. Prescriptions: No Action (DME) lancets [FreeStyle Lancets] 28 gauge misc See Rx Instructions .ROUTE .MEDSUPPLY Qty: 100 11RF Rx Instructions: As directed three time a day (DME) pen needle, diabetic [BD Ultra-Fine Gisella Pen Needle] 32 gauge x needle See Rx Instructions .ROUTE .MEDSUPPLY Qty: 125 11RF Rx Instructions: As directed four times a day FreeStyle Lite Strips Strip 1 strip miscellaneous TID Qty: 100 11RF valsartan 80 mg tablet 80 mg PO BID Qty: 180 3RF Jardiance 25 mg tablet 25 mg PO QAM 30 Days Qty: 30 4RF carvedilol 12.5 mg tablet 12.5 mg PO BID (DME) blood-glucose meter [FreeStyle Lite Meter] Kit See Rx Instructions .ROUTE .MEDSUPPLY Qty: 1 0RF Rx Instructions: As directed omeprazole 20 mg capsule,delayed release(DR/EC) 20 mg PO DAILY cholecalciferol (vitamin D3) 50 mcg (2,000 unit) capsule 50 mcg PO DAILY Qty: 30 4RF buprenorphine-naloxone [Suboxone] 8-2 mg film 1 film sublingual DAILY aspirin 81 mg tablet,delayed release (DR/EC) 81 mg PO DAILY insulin lispro 100 unit/mL insulin pen 12 - 14 unit subcut TID Qty: 15 5RF Rx Instructions: use 15 minutes prior to meals insulin degludec [Tresiba FlexTouch U-200] 200 unit/mL (3 mL) insulin pen 76 unit subcut BEDTIME Qty: 12 5RF Mounjaro 7.5 mg/0.5 mL pen injector 7.5 mg subcut QWEEK Qty: 2 3RF (DME) FreeStyle Yahaira 3 [place] Misc See Rx Instructions .ROUTE .MEDSUPPLY Qty: 1 0RF Rx Instructions: Use daily to monitor blood glucose levels continuously. (DME) FreeStyle Yahaira 3 Plus Sensor Device See Rx Instructions .ROUTE .MEDSULY Qty: 2 11RF Rx Instructions: Apply 1 new sensor every 15 days as directed to monitor blood glucose continuously. Referrals: Galo Prajapati MD [Primary Care Provider, Medical] Print Language: Icelandic
[2025-05-14 12:33] LABS: MANUAL DIFF FLAG NO
[2025-05-14 12:37] LABS: Hematocrit 38.2 % (42.0-52.0); Hemoglobin 12.5 g/dl (14.0-18.0); Imm Gran Abs Auto 0.01 X10*3/uL (0.00-0.03); Imm Gran Pct Auto 0.2 % (0.0-0.4); Lymphocytes Absolute Auto 1.9 X10*3/uL (1.2-4.9); Mean Corpuscular HGB Conc 32.7 g/dl (31.0-36.0); Mean Corpuscular Hemoglobin 28.0 pg (27.0-33.0); Mean Corpuscular Volume 85.5 fL (80.0-98.0); NRBC Abs Auto 0.000 X10*3/uL (0.0-0.012); NRBC Pct Auto 0.0 /100WBC (0.0-0.2); Platelet Count 185 X10*3/uL (160-400); Red Blood Count 4.47 X10*6/uL (4.60-5.80); White Blood Count 6.6 X10*3/uL (4.8-10.8)
[2025-05-14 12:48] LABS: Alanine Aminotransferase 17 U/L (0-40); Albumin Level 4.3 g/dL (3.5-5.0); Alkaline Phosphatase 75 U/L (39-117); Anion Gap 10 (12-20); Aspartate Amino Transferase 23 U/L (5-37); Blood Urea Nitrogen 22 mg/dL (9-16); Calcium 8.6 mg/dL (8.4-10.2); Carbon Dioxide 29 mmol/L (22-29); Chloride 103 mmol/L (96-108); Creatinine Clr Calc Pharmacy 97.0; Estimated Glomerular Filt Rate > 60; INTERNATIONAL NORM RATIO 1.1 (0.9-1.1); Potassium 4.6 mmol/L (3.3-5.1); Prothrombin Time 12.7 SEC (10.9-12.4); Sodium 137 mmol/L (135-145); Total Protein 7.1 g/dL (6.5-8.0)
[2025-05-14 13:52] VITALS: BP 118/81; PULSE 80; RESP 18; TEMP 36.8; O2SAT 98
[2025-05-14 14:17] LABS: NT Pro B Type Natriuretic Pept 95.7 pg/mL (<300)
[2025-05-14 15:13] VITALS: BP 122/77; PULSE 83; RESP 18; TEMP 36.8; O2SAT 97
== END 2025-05-14 15:14 | disposition home or self-care (01) ==
PROVIDERS: Physician Assistant; Physician Assistant Medical; Emergency Provider Emergency Medicine; PCP Internal Medicine
DX: R79.89 Other specified abnormal findings of blood chemistry (principal); I10 Essential (primary) hypertension; E11.9 Type 2 diabetes mellitus without complications; M79.605 Pain in left leg; R60.0 Localized edema; R06.02 Shortness of breath; Z79.899 Other long term (current) drug therapy; Z79.4 Long term (current) use of insulin
CPT/HCPCS: 36415; 80053; 83880; 85025; 85610; 93971; 99284

== ENCOUNTER → 2025-05-14 12:20 | Outpatient (BNV) | payer MEDICAID, SELFPAY | PROVIDERS: Emergency Provider Emergency Medicine; PCP Internal Medicine; Visit Provider Radiology Diagnostic Radiology | DX: M79.662 Pain in left lower leg (principal); R60.0 Localized edema | CPT/HCPCS: 93971 ==

== ENCOUNTER 2025-05-15 14:17 | Outpatient (REF) | payer MEDICAID, SELFPAY ==
[2025-05-15 17:35] LABS: Magnesium 2.2 mg/dL (1.6-2.6)
== END 2025-05-15 14:18 | disposition home or self-care (01) ==
LOC: HO.LAB 14:17
PROVIDERS: PCP Internal Medicine; Visit Provider Nurse Practitioner Family
DX: I44.2 Atrioventricular block, complete (principal); I25.10 Atherosclerotic heart disease of native coronary artery without angina pectoris; I10 Essential (primary) hypertension; I77.89 Other specified disorders of arteries and arterioles; T82.09XA Other mechanical complication of heart valve prosthesis, initial encounter; I47.29 Other ventricular tachycardia; E78.5 Hyperlipidemia, unspecified; Z86.79 Personal history of other diseases of the circulatory system; Z95.0 Presence of cardiac pacemaker; Z95.2 Presence of prosthetic heart valve; Z79.82 Long term (current) use of aspirin; Z79.899 Other long term (current) drug therapy
CPT/HCPCS: 36415; 83735; 93005; 99212

== ENCOUNTER 2025-05-15 14:17 | Outpatient (AMB) | payer MEDICARE, MEDICAID, SELFPAY ==
--- OUTSIDE RECORDS SUMMARY | 2025-05-11 16:00 | XMS_ITS | Encounter Summary ---
Author Organization [employer] Address 75 [facility] 7t [place] [address] Care Team Providers Care Attending Ambulatory Care Name Role Phone Galo Fang MD Primary Care Provide r Reason for Visit * Reason Comments Leg Pain Encounter Details Date Type Department Care Team ([facility] st Contact Info) Description 05/11/2025 4:00 PM EDT Office Visit [facility] [address] [place] [address] Susan Arriaga MD [address] [place] [address] Pain of left calf (Primary Dx) Social [...] high (>500 ng/mL) and tell him to [facility]. If the level is low, I will send him to Ortho. Pain management would depend on whether he has a DVT. - D-Dimer, Quantitative; Future Future Appointments Date Time Provider Department Center 06/22/2025 9:00 AM Carroll Roberts MD MEDICINE [facility] 07/10/2025 10:00 AM Galo Ramey MD [facility] 09/21/2025 11:[address] [facility] documented in this encounter Plan of Treatment Upcoming Encounters Date Type Department Care Team (Late st Contact Info) Description 06/22/2025 9:00 AM EST Office Visit [facility] [address] [place] [address] Carroll Roberts MD [address] [place] [address] 07/10/2025 10:00 AM EST Office Visit [facility] [address] [place] [address] Galo Fang MD [address] [place] [address] 09/21/2025 11:00 AM EST Office Visit [facility] [address] [place], [place] [phone] Pat Bates, OD [address] [place] [address] Scheduled Orders Name Type Priority Associated Diagnoses [...] documented as of this encounter Care Teams Attending Ambulatory Care Relationship Specialty Start Date End Date Galo Fang MD [address] [place] [address] PCP - General Internal Medicine 04/04/14 documented as of this encounter
--- NOTE | 2025-05-15 14:31 | MHC.OFFVIS ---
Vital Signs 05/15/25 14:32 Height 5 ft 7 in Weight 220 lb 7.396 oz BMI 34.5 BP 102/62 Blood Pressure Location Lt brachial Position Sitting Pulse 74 Pulse Source Monitor Intake Visit Reasons: f/u Net Trainer Required: Yes Net Trainer Name: bjorn cano [phone] Registered Occupational Therapist: Registered Occupational Therapist Present Allergies dulaglutide (From [employer]) Adverse Reaction (Mild, Verified 05/15/25 14:35) Diarrhea Medication List - Last Reconciled 05/15/25 by ALEJANDRO Centeno aspirin 81 mg PO DAILY blood sugar diagnostic (FreeStyle Lite Strips) 1 strip miscellaneous TID blood-glucose meter (FreeStyle Lite Meter kit) As directed blood-glucose sensor (FreeStyle Yahaira 3 Plus Sensor device) Apply 1 new sensor every 15 days as directed to monitor blood glucose continuously. blood-glucose,seed technician,cont (FreeStyle Yahaira 3 [place]) Use daily to monitor blood glucose levels continuously. buprenorphine-naloxone 8-2 mg (Suboxone) 1 film sublingual DAILY carvedilol 25 mg PO BID cholecalciferol (vitamin D3) 50 mcg PO DAILY empagliflozin (Jardiance) 25 mg PO QAM 30 days insulin degludec (Tresiba FlexTouch U-200 insulin) 76 units (0.38 mL) subcut BEDTIME insulin lispro 12 - 14 units (0.12 - 0.14 mL) subcut TID lancets (FreeStyle Lancets) As directed three time a day omeprazole 20 mg PO DAILY pen needle, diabetic (BD Ultra-Fine Gisella Pen Needle) As directed four times a day tirzepatide (Mounjaro) 7.5 mg (0.5 mL) subcut QWEEK valsartan 80 mg PO DAILY HPI HPI f/u: Details: Nemesio is a 64-year-old male past medical history of hypertension, hyperlipidemia, diabetes, obesity, sleep apnea, not using CPAP, cardiomyopathy, bioprosthetic AVR with elevated gradiants, CHB with recent Medtronic dual chamber pacemaker placement who was found to have a 37 second run of nonsustained ventricular tachycardia on device remote monitoring, 05/13/25 at 1441. Incidently, He was seen in the ED 05/14 for leg pain and ruled out for DVT. Labs showed K 4.6, Ca+ 8.6. Mg and EKG not done. He was called from our office and instructed to increase his carvedilol. He now presents today for office evaluation. Today he reports that he has been doing well since his last visit here 04/23/25. He still has some minor soreness in his left lateral calf muscle but it is improving. He was told it was just muscular. On 05/13/2025 at the time mentioned he believes he was sitting in his daughter's car. He does recall feeling some lightheadedness but describes it as mild. He has not presyncope, syncope, falls. He has no chest discomfort at rest or with activity. No shortness of breath, PND, orthopnea or edema. The increased dose of carvedilol today as he was directed and he now feels lightheaded. If is present. 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 [facility] Medical History Osteoporosis History of cardiomyopathy Prosthetic valve dysfunction BMI 39.0-39.9,adult Cardiomyopathy TAMARA (obstructive sleep apnea) Opioid dependence Hypogonadism Polyarthropathy Erectile dysfunction Nephrolithiasis Depression Esophageal reflux Arthritis Asthma Hyperlipidemia LDL goal <70 Obesity due to excess calories Essential hypertension Type 2 diabetes mellitus with diabetic neuropathy, unspecified Surgical History History of heart valve replacement Hx of umbilical hernia repair Family History Father Heart disease CVD (cardiovascular disease) Mother DM2 (diabetes mellitus, type 2) Social History Household Members: None Unable to assess alcohol history related to: Unknown Alcohol intake: current Alcohol intake frequency: does not drink Patient Tobacco Use Status: Former Tobacco user Current occupational status: disabled Review of Systems Const All systems reviewed & are unremarkable except as noted in HPI and below ENT Denies dizziness Card Denies chest pain, Denies chest pain at rest, Denies chest pain with activity, Denies rapid heart rate, Denies pedal edema, Denies edema, Denies leg edema, Denies lightheadedness, Denies palpitations, Denies dyspnea, Denies dyspnea on exertion and Denies orthopnea Resp Denies cough, Denies dyspnea and Denies dyspnea on exertion GI Denies hematochezia and Denies change in stool character Musc Details: muscle pain left lateral calf Denies abnormal gait, Denies limited range of motion, Denies muscle weakness, Denies numbness, Denies radiating pain into limb, Denies stiffness and Denies tingling Neuro Denies abnormal gait, Denies dizziness, Denies numbness and Denies tingling Endo Denies palpitations Physical Exam Vital Signs: Last Vital Signs Pulse 74 05/15/25 14:32 BP 102/62 05/15/25 14:32 BMI result Body Mass Index 34.5 Const General: cooperative, healthy appearing, comfortable and no acute distress Orientation/consciousness: patient oriented x3 Neck Neck: Yes normal visual inspection Chest Other: Pacer site benign Resp Effort & Inspection: normal respiratory effort Auscultation: clear to auscultation bilaterally, no crackles, no rales, no rhonchi and no wheezes Cardio Rate: regular rate Rhythm: regular rhythm Heart sounds: S1 normal heart sound present, S2 normal heart sound present, no murmurs and no rubs Neuro General: patient oriented x3 Extrem General: Yes normal to inspection Psych Appearance: grossly normal Mental Status: mental status grossly normal Speech and movement: Normal speech and movement present Office Procedures EKG Details: Today, read by me, atrial sensed, ventricular paced rhythm, rate 74, QTC 508 millisecond [id number], Complete Assessment & Plan Assessment & Plan (1) NSVT (nonsustained ventricular tachycardia): Code(s): I47.29 - Other ventricular tachycardia Category: Medical Plan: Remote pacemaker monitoring shows a 37 second run of NSVT. Confirmed with Medtronic rep. Patient reports of mild lightheadedness at that time. EKG done today showing atrial sensed, ventricular paced rhythm, QTC 508 milliseconds, rate 74. Last echocardiogram 03/16/2025 showed EF 60-65%. Labs yesterday showed normal potassium and calcium. Will check magnesium today. Known history of nonobstructive LAD stenosis. Will check pharmacological nuclear stress test to evaluate for ischemia. Will review case with Dr. Salcedo EP regarding upgrade to ICD. Initial plan was to increase carvedilol to 25 mg b.i.d. however he took that dose this morning and reported lightheadedness. Blood pressure low at 1022/62. Will adjust dose to 18.75 mg b.i.d.. Continue remote monitoring of pacemaker to assess for recurrent arrhythmia. Cardiology office visit 1 month, sooner if needed. (2) Third degree heart block: Code(s): I44.2 - Atrioventricular block, complete Category: Medical Plan: Recent finding third-degree heart block, transferred to [facility] and underwent Medtronic dual-chamber pacemaker placement 03/20/25. Remote monitoring in use and device is functioning normally. (3) Pacemaker: Comment: Medtronic dual-chamber pacemaker placement 03/20/2025 Code(s): Z95.0 - Presence of cardiac pacemaker Category: Medical Plan: Interrogation last visit shows device is functioning normally. He has remote monitoring in use. Next office interrogation due in 5 months. (4) Coronary artery disease: Comment: Catheterization 12/21/2018 lad moderate disease, proximal LAD 45% stenosis, left circumflex mild disease, RCA mild disease. Code(s): I25.10 - Atherosclerotic heart disease of [place] coronary artery without angina pectoris Category: Medical Plan: History of nonobstructive coronary artery disease. No anginal symptoms. EKG ventricular paced rhythm and nondiagnostic for ischemia. Recent NSVT. Will order pharmacological nuclear stress test to evaluate for ischemia. (5) Status post aortic valve replacement: Code(s): Z95.2 - Presence of prosthetic heart valve Category: Surgical Plan: History of aortic stenosis, status post bioprosthetic AVR. Last echo done 03/16/2025 shows EF 60-65%, stenosis of bioprosthetic aortic valve with mean gradient 21 mmHg, ascending aorta 4.0 cm. Prior echo done 05/12/2023 had shown mean gradient 11 mmHg. No cardinal signs of severe . Those signs reviewed with him in detail. Repeat echocardiogram was planned 6 months from last. Due in September (6) Prosthetic valve dysfunction: Comment: Secondary to patient prosthesis mismatch. Mean gradient of 21 mm Hg post surgical at baseline. Code(s): T82.09XA - Other mechanical complication of heart valve prosthesis, initial encounter Category: Medical Plan: As above (7) History of cardiomyopathy: Comment: Improved after aortic valve replacement with last LVEF of 50-55% Code(s): Z86.79 - Personal history of other diseases of the circulatory system Category: Medical Plan: History of cardiomyopathy. EF improved following aortic valve replacement and neurohormonal modulation. Most recent EF 60-65 %. No signs of heart failure on examination. Continue valsartan, carvedilol, Jardiance. He has CPAP says he is not able to wear it as it causes him congestion. Instructed to wear CPAP as much as tolerated. Can discuss further with his PCP/Pulmonary provider if needed. Continue physical activity as tolerated, weight loss recommended. (8) Essential hypertension: Code(s): I10 - Essential (primary) hypertension Category: Medical Plan: Blood pressure goal less than 130/80. Blood pressure low today. Carvedilol dose being adjusted to 18.75 mg b.i.d.. Valsartan reduced to 80 mg once daily. (9) Hyperlipidemia LDL goal <70: Code(s): E78.5 - Hyperlipidemia, unspecified Category: Medical Plan: Drew LDL goal less than 70 in patient with diabetes. Is not on statin therapy for unclear reason -followed by PCP. Labs done 02/28/2025 had shown LDL 91. Recommend use of statin as long as no clear contraindication. Will forward this note to his PCP. (10) Enlarged thoracic aorta: Code(s): I77.89 - Other specified disorders of arteries and arterioles Category: Medical Plan: Ascending aorta dilated at 4.0 cm on most recent echocardiogram. Plan Time spent on chart review, documentation, interview and assessment, communicating with Dr Bhatt and Dr Salcedo, orders Orders: Orders Magnesium Today I47.29 - Other ventricular tachycardia CA lexiscan stress w ritu Today I25.10 - Atherosclerotic heart disease of [place] coronary artery without angina pectoris, I47.29 - Other ventricular tachycardia, Z95.0 - Presence of cardiac pacemaker [place] cardiolite stress test Today I25.10 - Atherosclerotic heart disease of [place] coronary artery without angina pectoris, I47.29 - Other ventricular tachycardia, Z95.0 - Presence of cardiac pacemaker Medications: New carvedilol must administer with a meal/food Dose adjusted due to lightheadedness - sent script yesterday for 25mg bid - change that to the 18.75mg bid - thank you 18.75 mg (1.5 x 12.5 mg) PO BID 90 tabs 5RF 30 days Discontinued carvedilol must administer with a meal/food dose increased Discontinued Reason: Doctor's Order 25 mg PO BID 60 tabs 5RF Coding Level of Care Code Est Pt Level 5 (25207) Complex EM visit Add On G2211 Diagnoses NSVT (nonsustained ventricular tachycardia) I47.29 Third degree heart block I44.2 Pacemaker Z95.0 Coronary artery disease I25.10 Status post aortic valve replacement Z95.2 Prosthetic valve dysfunction T82.09XA History of cardiomyopathy Z86.79 Essential hypertension I10 Hyperlipidemia LDL goal <70 E78.5 Enlarged thoracic aorta I77.89 CPT Codes EKG - CPT: [id number], Complete ([id number]) Time Spent (min) 40
[2025-05-15 14:32] VITALS: BP 102/62; PULSE 74; BMI 34.5
--- OUTSIDE RECORDS SUMMARY | 2025-05-15 15:40 | XMS_ITS | Encounter Summary ---
Author Organization [employer] Address [address] [place] [address] [address] [place] [address] Care Team Providers Care Deputy Sheriff Court Services Name Role Phone Galo Fang MD Primary Care Provide r Encounter Details Date Type Department Care Team (Late st Contact Info) Description 12/23/2022 Abstract [facility] MEDICINE [address] [place] [phone] Galo Fang MD [address] [place] [address] [phone] Social History Tobacco Use Types Packs/Day Years [...] 9:00 AM EST Office Visit [facility] [address] [place] [phone] Carroll Roberts MD [address] [place] [phone] 07/10/2025 10:00 AM EST Office Visit [facility] MED[facility]INE [address] [place] [phone] Galo Fang MD [address] [place] [address] [phone] 09/21/2025 11:00 AM EST Office Visit [facility] OPTOMETRY [address] [place] [address] Pat Bates, OD [address] [place] [address] documented as of this encounter Procedures Procedure Name Priority Date/Time Associated Diagnosis Comments COLONOSCOPY Routine 07/29/2018 documented in this encounter Results * Hm Colonoscopy (07/29/2018) Colonoscopy Normal Normal 07/29/2018 Narrative Georgia Rubio - 07/29/2018 1:52 PM EST Recommended 10 year follow up Historical Provider HEALTH MAINTENANCE Final Result documented in this encounter Visit Diagnoses Not on filedocumented in this encounter Care Teams Deputy Sheriff Court Services Relationship Specialty Start Date End Date Galo Fang MD [address] [place] [address] PCP - General Internal Medicine 04/04/14 documented as of this encounter
--- OUTSIDE RECORDS SUMMARY | 2025-05-15 15:40 | XMS_ITS | Encounter Summary ---
Author Organization [employer] Address [address] [place] [address] [place], [place] [address] Care Team Providers Care Eap Consultant Name Role Phone Galo Fang MD Primary Care Provide r Reason for Visit * Reason Comments Med Refill Encounter Details Date Type Department Care Team ([facility] Contact Info) Description 06/22/2023 Refill [facility] MEDICINE [address] [place] [phone] Carroll Roberts MD [address] [place] [address] [phone] Uncomplicated opioid dependence (CMS/HCC) Social History Tobacco [...] Description 06/22/2025 9:00 AM EST Office Visit [facility] MEDICINE [address] [place] [phone] Carroll Roberts MD [address] [place] [phone] 07/10/2025 10:00 AM EST Office Visit [facility] MEDICINE [address] [place] [phone] Galo Fang MD [address] [place] [address] [phone] 09/21/2025 11:00 AM EST Office Visit [facility] OPTOMETRY [address] [place], [place] [phone] Pat Bates, OD [address] [place], [place] [phone] documented as of this encounter Visit Diagnoses Diagnosis Uncomplicated opioid dependence (CMS/HCC) (HCC) documented in this encounter Care Teams Eap Consultant Relationship Specialty Start Date End Date Galo Fang MD [address] [place], [place] [phone] PCP - General Internal Medicine 04/04/14 documented as of this encounter
--- OUTSIDE RECORDS SUMMARY | 2025-05-15 15:40 | XMS_ITS | Encounter Summary ---
Author Organization [employer] Address [address] [facility] [address] [place] [address] Care Team Providers Care Superintendent Stations Name Role Phone Galo Fang MD Primary Care Provide r Reason for Visit * Reason Onset Date Comments Med Refill 12/29/2024 Encounter Details Date Type Department Care Team (Late st Contact Info) Description 12/29/2024 Refill [facility] MEDICINE [address] [place] [address] 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 RN Uncomplicated opioid dependence (CMS/HCC) [...] t he electric, gas, oil or water [employer] threatened to shut off services in your [...] 9:00 AM EST Office Visit [facility] MEDICINE [address] [place] [address] Carroll Roberts MD [address] [place] [address] 07/10/2025 10:00 AM EST Office Visit [facility] MEDICINE [address] [place] [address] Galo Fang MD [address] [place] [address] 09/21/2025 11:00 AM EST Office Visit [facility] OPTOMETRY [address] [place] [address] Pat Bates, OD [address] [place] [address] documented as of this encounter Goals Goal [...] documented as of this encounter Care Teams Superintendent Stations Relationship Specialty Start Date End Date Galo Fang MD [address] [place] [address] PCP - General Internal Medicine 04/04/14 documented as of this encounter
--- OUTSIDE RECORDS SUMMARY | 2025-05-15 15:40 | XMS_ITS | Encounter Summary ---
Author Organization [employer] Address [address] [facility] 7t [place] [address] Care Team Providers Care Family Centered Specialist Name Role Phone Galo Fang MD Primary Care Provide r Encounter Details Date Type Department Care Team ([facility] st Contact Info) Description 05/14/2025 Orders Only [facility] [address] [place], [place] [phone] Susan Arriaga MD [address] [place], [place] [phone] Social History Tobacco Use Types Packs/Day Years [...] Description 06/22/2025 9:00 AM EST Office Visit [facility] [address] [place] [address] Carroll Roberts MD [address] [place] [address] 07/10/2025 10:00 AM EST Office Visit [facility] [address] [place] [address] Galo Fang MD [address] [place] [address] 09/21/2025 11:00 AM EST Office Visit [facility] [address] [place] [address] Paulo, Pat, OD [address] [place] [address] documented as of this encounter Goals Goal Patient Goal Type Associated Problems Recent Progress Patient-Stated? Author Increase coping skills to promote long-term recovery and improve ability to perform daily activities General On track( 025 9:26 AM EDT) Frieda Trevino, RN documented as of this encounter Procedures Procedure Name Priority Date/Time Associated Diagnosis Comments LOWER EXTREMITY VENOUS DUPLEX LEFT Routine 05/14/2025 12:40 PM EDT NT-PROBNP Routine 05/14/2025 12:28 PM EDT CBC WITH AUTO DIFFERENTIAL Routine 05/14/2025 12:28 PM EDT PROTHROMBIN TIME-INR Routine 05/14/2025 12:28 PM EDT COMPREHENSIVE METABOLIC PANEL Routine 05/14/2025 12:28 PM EDT D DIMER HIGH SENSITIVITY Routine 05/14/2025 9:43 AM EDT documented in this encounter Results * Lower Extremity Venous Duplex (05/14/2025 12:40 PM EDT) 05/14/2025 12:4 0 PM EDT Narrative [facility] - 05/14/2025 1:07 PM EDT [place] [address] Ultrasound Report Signed Patient: Nemesio Brown MR#: [id number] : 1960 Acct:[id number] Age/Sex: 64 / M ADM Date: 05/14/25 Loc: HO.ED Attending Dr: Ordering Physician: Amee Acosta Date of Service: 05/14/25 Procedure(s): US venous duplex LE LT Accession Number(s): [id number] cc: Galo Prajapati MD; Amee Acosta Reason for Exam: pain, swelling, elevated d dimer, concern for DVT EXAMINATION: US TRIPLEX LOWER EXTREMITY, LEFT CLINICAL INFORMATION: Edema and pain, left lower extremity COMPARISON: None available. TECHNIQUE: Color-flow triplex imaging with spectral analysis and compression Doppler were performed on the left lower extremity. FINDINGS: Respiratory variation, normal compression and augmented flow are demonstrated in the interrogated left common femoral vein, superficial femoral vein, profunda femoral vein, popliteal vein and midcalf peroneal and posterior tibial venous segments . There is no Guerin's cyst. US/US venous duplex LE LT IMPRESSION: No acute deep venous thrombosis interrogated veins, left lower extremity. Negative for DVT. Electronically signed by: Fabricio Gentile MD 05/14/2025 01:04 PM EDT RP Dictated By: Fabricio Castano MD Signed By: <Electronically signed by Fabricio Arthur MD in OV> 05/14/25 1304 DD/ 1240 TD/TT: 05/14/25 1248 [employer]: Procedure Note Donotuseinterpreter, Image - 05/14/[address] [address] Ultrasound Report Signed Patient: Radha BrownarMR#: [id number] : 1960Acct:[id number] Age/Sex: 64 / MADM Date: 05/14/25 Loc: .ED Attending Dr: Ordering Physician: Amee Acosta Date of Service: 05/14/25 Procedure(s): US venous duplex LE LT Accession Number(s): [id number] cc: Galo Prajapati MD; Amee Acosta Reason for Exam: pain, swelling, elevated d dimer, concern for DVT EXAMINATION: US TRIPLEX LOWER EXTREMITY, LEFT CLINICAL INFORMATION: Edema and pain, left lower extremity COMPARISON: None available. TECHNIQUE: Color-flow triplex imaging with spectral analysis and compression Doppler were performed on the left lower extremity. FINDINGS: Respiratory variation, normal compression and augmented flow are demonstrated in the interrogated left common femoral vein, superficial femoral vein, profunda femoral vein, popliteal vein and midcalf peroneal and posterior tibial venous segments . There is no Guerin's cyst. US/US venous duplex LE LT IMPRESSION: No acute deep venous thrombosis interrogated veins, left lower extremity. Negative for DVT. Electronically signed by: Fabricio Gentile MD 05/14/2025 01:04 PM EDT RP Dictated By: Fabricio Castano MD Signed By: <Electronically signed by Fabricio Arthur MDin OV> 05/14/25 1304 DD/ 1240 TD/TT: 05/14/25 1248 [employer]: [facility] External Provider CV VASC ULAR PROCEDURES Final Result [facility] [address] [place] [address] * NT-proBNP (05/14/2025 12:28 PM EDT) NT-proBNP 95.7 <300 pg/mL [facility] Comment:Reference Range:Age Group (years) NT-proBNP (pg/ml) InterpretationAll <300 Negative: HF unlikelyFor patients presenting to the ED with clinical suspicion ofnew onset or worsening HF, see below:18 to <50 >299.9 to <450.0 Grayzone: [id number] to 75 >299.9 to <900.0 other causes of>75 >299.9 to <1800.0 NT-proBNP unrkunbbb30 to <50 >449.9 Positive: HF [id number] >899.9>75 >1799.9Note: Elevated NT-proBNP levels should be interpreted inthe context of other clinical information. 05/14/2025 12:2 8 PM EDT 05/14/2025 1:56 PM EDT Generic External Data Provider LAB BLOOD ORDERAB LES Final Result [facility] [address] [place] [address] [phone] * (ABNORMAL) Comprehensive Metabolic Panel (05/14/2025 12:28 PM EDT) Sodium 137 135 - 145 mmol/L [facility] Potassium 4.6 3.3 - 5.1 mmol/L [facility] Chloride 103 96 - 108 mmol/L [facility] Carbon Dioxide 29 22 - 29 mmol/L [facility] Anion Gap 10(L) 12 - 20 [facility] Urea Nitrogen (BUN) 22(H) 9 - 16 mg/dL [facility] Creatinine, Serum 0.86 0.5 - 1.4 mg/dL [facility] Creatinine Clr Calc Pharmacy 97.0 [facility] Comment:eGFR (calculated fro m the MDRD study equation) and eCrCl(calculated from the Cockcroft-Gault equation) are based ondifferent parameters and may not yield comparable results.If eCrCl result is absurd, please check patient'sheight/weight. Estimated Glomerular Filt Rate >60 [facility] Comment:Chronic Kidney Disea se: Estimated GFR < 60 mL/min/1.22h0Tvjjss Kidney Disease: Estimated GFR < 15 mL/min/1.73m2 Glucose 188(H) 60 - 115 mg/dL [facility] Calcium 8.6 8.4 - 10.2 mg/dL [facility] Bilirubin, Total 0.4 0.0 - 1.0 mg/dL [facility] Aspartate Amino Transferase 23 5 - 37 U/L [facility] Alanine Aminotransferase 17 0 - 40 U/L [facility] Total Protein 7.1 6.5 - 8.0 g/dL [facility] Albumin Level 4.3 3.5 - 5.0 g/dL [facility] Alkaline Phosphatase 75 39 - 117 U/L [facility] 05/14/2025 12:2 8 PM EDT 05/14/2025 12:32 PM EDT us Generic External Data Provider LAB BLOOD ORDERAB LES Final Result [facility] [address] [place] [phone] * (ABNORMAL) Prothrombin Time-INR (05/14/2025 12:28 PM EDT) Prothrombin Time 12.7(H) 10.9 - 12.4 SEC [facility] INTERNATIONAL NORM RATIO 1.1 0.9 - 1.1 [facility] Comment:INTERNATIONAL NORMAL IZED RATIO (INR) REFERENCE RANGES Reference RangeFor patients not on anticoagulant therapy: 0.9 - 1.1INR ranges for oral anticoagulanttherapy:For prevention and treatment of venous thrombosis and pulmonary embolism: 2.0 - 3.0For acute myocardial infarction with aspirin therapy: 2.0 - 3.0For acute myocardial infarction without aspirin therapy: 3.0 - 4.0For patients with mechanical prosthetic heart valves: 2.5 - 3.5 05/14/2025 12:2 8 PM EDT 05/14/2025 12:32 PM EDT us Generic External Data Provider LAB BLOOD ORDERAB LES Final Result [facility] [address] [place] [address] [phone] * (ABNORMAL) CBC auto differential (05/14/2025 12:28 PM EDT) White Blood Count 6.6 4.8 - 10.8 X10*3/uL [facility] Red Blood Count 4.47(L) 4.60 - 5.80 X10*6/uL [facility] Hemoglobin 12.5(L) 14.0 - 18.0 g/dl [facility] Hematocrit 38.2(L) 42.0 - 52.0 % [facility] Mean Corpuscular Volume 85.5 80.0 - 98.0 fL [facility] Mean Corpuscular Hemoglobin 28.0 27.0 - 33.0 pg [facility] Mean Corpuscular HGB Conc 32.7 31.0 - 36.0 g/dl [facility] Red Cell Distribution Width 13.2 11.0 - 16.0 % [facility] Platelet Count 185 160 - 400 X10*3/uL [facility] Mean Platelet Volume 9.2(L) 9.4 - 12.4 fL [facility] Neutrophils Percent Auto 59.3 45 - 73 % [facility] Imm Gran Pct Auto 0.2 0.0 - 0.4 % [facility] Lymphocytes Percent Auto 28.7 20 - 40 % [facility] Monocytes Percent Auto 5.6 2 - 11 % [facility] Eosinophils Percent Auto 5.3(H) 0 - 4 % [facility] Basophils Percent Auto 0.9 0 - 2 % [facility] NRBC Pct Auto 0.0 0.0 - 0.2 /100WBC [facility] Neutrophils Absolute Auto 3.9 2.0 - 8.3 x10*3/uL [facility] Imm Gran Abs Auto 0.01 0.00 - 0.03 X10*3/uL [facility] Lymphocytes Absolute Auto 1.9 1.2 - 4.9 X10*3/uL [facility] Monocytes Absolute Auto 0.4 0.1 - 1.2 X10*3/uL [facility] Eosinophils Absolute Auto 0.4 0.0 - 0.4 X10*3/uL [facility] Basophils Absolute Auto 0.1 0.0 - 0.2 X10*3/uL [facility] NRBC Abs Auto 0.000 0.0 - 0.012 X10*3/uL [facility] 05/14/2025 12:2 8 PM EDT 05/14/2025 12:32 PM EDT us Generic External Data Provider LAB BLOOD ORDERAB LES Final Result [facility] [address] [place] [phone] * D Dimer High Sensitivity (05/14/2025 9:43 AM EDT) D Dimer High Sensitivity 278 NG/ML [facility] Comment:Results of Homero sawant lled to Monae Mejia on 05/14/25at 1042 by RAINE.D- DIMER HS REFERENCE RANGENote: Our assay reports D-Dimer Units (D-DU).The cut-off value for venous thromboembolic (VTE) disease is230 ng/mL. This value has a very high negative predictivevalue when the patient has a low to moderate clinicalprobability of VTE.The upper limit of normal is 243 ng/mL. 05/14/2025 9:43 AM EDT 05/14/2025 9:43 AM EDT us Susan Arriaga MD LAB BLOOD ORDERABLES Final Re sult [facility] [address] [place] [address] [phone] documented in this encounter Visit Diagnoses Not on filedocumented in this encounter Additional Health Concerns Assessment Noted Time PHQ-9 Depression Total Score: 0 04/10/20 8:59 AM EDT documented as of this encounter Care Teams Family Centered Specialist Relationship Specialty Start Date End Date Galo Fang MD [address] [place] [phone] PCP - General Internal Medicine 04/04/14 documented as of this encounter
--- OUTSIDE RECORDS SUMMARY | 2025-05-15 15:40 | XMS_ITS | Encounter Summary ---
Author Organization [employer] Address [address] [facility] [address] [place] [address] Care Team Providers Care Cafeteria Server Name Role Phone Galo Fang MD Primary Care Provide r Reason for Visit * Reason Comments Med Refill Encounter Details Date Type Department Care Team ([facility] st Contact Info) Description 10/08/2023 Refill [facility] [address] [place] [address] Carroll Roberts MD [address] [place], [place] [phone] Uncomplicated opioid dependence (CMS/HCC) Social History Tobacco [...] EST Office Visit [facility] [address] [place] [address] Carroll Roberts MD [address] [place] [address] 07/10/2025 10:00 AM EST Office Visit [facility] [address] [place] [address] Galo Fang MD [address] [place] [address] 09/21/2025 11:00 AM EST Office Visit [facility] [address] [place] [address] PauloPat womack, OD [address] [place] [address] documented as of this encounter Visit Diagnoses Diagnosis Uncomplicated opioid dependence (CMS/HCC) (HCC) documented in this encounter Additional Health Concerns Assessment Noted Time PHQ-9 Depression Total Score: 0 07/01/20 23 1:10 PM EST documented as of this encounter Care Teams Cafeteria Server Relationship Specialty Start Date End Date Galo Fang MD [address] [place] [phone] PCP - General Internal Medicine 04/04/14 documented as of this encounter
--- OUTSIDE RECORDS SUMMARY | 2025-05-15 15:40 | XMS_ITS | Patient Health Record ---
Author Organization [facility] Address [address] [place] [address] Care Team Providers Care Weed Burner Name Role Phone Ahmet Abbasi Unavailable [phone] Reason For Referral No Information Plan Of Treatment No Information
--- OUTSIDE RECORDS SUMMARY | 2025-05-15 15:40 | XMS_ITS | Clinical Summary ---
Author Organization [employer] Address [address] [facility] [address] [place] [address] Care Team Providers Care Cafeteria Cook Name Role Phone Galo Fang MD Primary [...] 2 WEEKS 023 Active Continuous Blood Gluc Clicking Machine Operator (FreeStyle Yahaira 2 [place]) device USE DIRECTED 023 Active FREESTYLE LITE [...] Pt here for a HDF Admitted to [facility] [place] 03/18-03/21/2025 after he presented with c/o [...] acute bony abnormality. Pt was seen by Sales Director 05/17/2024 work up in progress Assessment & [...] and L1-L2 levels. [place] the [place] [facility] [place], they recommended PT and if no improvement would consider steroid injections On Baclofen 5 mg po TID PRN Assessment & Plan (11/09/2023 2:31 PM EDT): Pt with previous c/o acute om chronic lbp currently back pain is worse per his report intensity 6/10 radiation to right leg not a good candidate for NSAIDS, continues to decline PT Pt was referred to [facility], pt did not go. Previous plain film of LS spine unremarkable Plan:Plain films LS Spine, right hip Refer back to [facility] Assessment & Plan (04/06/2023 1:21 PM [...] PSA 09/05/2024 : Normal, Colonoscopy: 07/29/2018 at [facility] diverticulosis Assessment & Plan (09/12/2024 9:25 AM EST): PSA 04/06/2023 : Normal, repeat ordered Colonoscopy: 07/29/2018 at [facility] diverticulosis Assessment & Plan (07/01/2023 1:02 PM EST): PSA 04/06/2023 : Normal Colonoscopy: 07/29/2018 at [facility] diverticulosis Assessment & Plan (04/06/2023 1:22 PM EDT): Colonoscopy: 07/29/2018 at [facility] diverticulosis Aortic valve stenosis 07/17/2022 Assessment & [...] exam was last done by Dr. Littlejohn (infusion therapy nurse) No diabetic retinopathy. 07/31/2024 Microalbumin checked on: 11/29/2023 was: 7 Pt is on ARB (lisinopril caused him itchy throat and ? angioedema ? ) . Foot check risk of zero Pt reports compliance with Asa 81 mg po daily Plan: As per Crewman Armoured Personnel Carrier M113 Pt advised to: adhere to diabetic diet [...] exam was last done by Dr. Littlejohn (infusion therapy nurse) No diabetic retinopathy. 07/31/2024 Microalbumin checked on: 11/29/2023 was: 7 Pt is on ARB (lisinopril caused him itchy throat and ? angioedema ? ) . Foot check risk of zero Pt reports compliance with Asa 81 mg po daily Plan: As per Crewman Armoured Personnel Carrier M113 Pt advised to: adhere to diabetic diet [...] exam was last done by Dr. Littlejohn (infusion therapy nurse) No diabetic retinopathy. 07/31/2024 Microalbumin checked on: 11/29/2023 was: 7 Pt is on ARB (lisinopril caused him itchy throat and ? angioedema ? ) . Foot check risk of zero Pt reports compliance with Asa 81 mg po daily Plan: as per Crewman Armoured Personnel Carrier M113 Pt advised to: adhere to diabetic diet [...] exam was last done by Dr. Littlejohn (infusion therapy nurse) No diabetic retinopathy. Microalbumin checked on: 11/29/2023 was: 7 Pt is no longer on an WALDEMAR inhibitor. (lisinopril caused him itchy throat and ? angioedema ? ) . Foot check risk of zero Pt reports compliance with Asa 81 mg po daily Plan: as per Crewman Armoured Personnel Carrier M113 Pt advised to: adhere to diabetic diet [...] exam was last done by Dr. Littlejohn (infusion therapy nurse) No diabetic retinopathy. Microalbumin checked on: 01/14/2021 was: 22 Pt is no longer on an WALDEMAR inhibitor. (lisinopril caused him itchy throat and ? angioedema ? ) . Foot check risk of zero Pt reports compliance with Asa 81 mg po daily Plan: as per Crewman Armoured Personnel Carrier M113 Pt advised to: adhere to diabetic diet [...] exam was last done by Dr. Littlejohn (infusion therapy nurse) No diabetic retinopathy. Microalbumin checked on: 01/14/2021 was: 22 Pt is no longer on an WALDEMAR inhibitor. (lisinopril caused him itchy throat and ? angioedema ? ) . Will repeat Foot check risk of zero Pt reports compliance with Asa 81 mg po daily Plan: as per Crewman Armoured Personnel Carrier M113 Pt advised to: adhere to diabetic diet [...] exam was last done by Dr. Littlejohn (infusion therapy nurse) No diabetic retinopathy. Microalbumin checked on: 01/14/2021 was: 22 Pt is no longer on an WALDEMAR inhibitor. (lisinopril caused him itchy throat and ? angioedema ? ) Foot check risk of zero Pt reports compliance with Asa 81 mg po daily Plan: as per Crewman Armoured Personnel Carrier M113 Pt advised to: adhere to diabetic diet check your blood sugars regularly check your feet on a daily basis f/u 3 months Depressive disorder 08/16/1959 Assessment & Plan (09/12/2024 1:10 PM EST): Pt with Hx of Depression In the past used to follow with Dr Bar, Pt has a behavior analyst pet who he attributes the fact that [...] Encounters Date Type Department Care Team Description 05/15/2025 Results Follow-Up [facility] [address] [place] [address] Susan Arriaga MD D Dimer High Sensitivity 05/14/2025 Telephone [facility] [address] [place] [phone] Galo Fang MD Call Back Request 05/14/2025 Orders Only [facility] [address] [place] [address] Susan Arriaga MD 05/14/2025 Telephone [facility] [address] [place] [phone] Galo Fang MD CRITICAL LAB 05/11/2025 4:00 PM EDT Office Visit [facility] [address] [place] [phone] Susan Arriaga MD Pain of left calf (Primary Dx) 05/11/2025 Travel 04/30/2025 Orders Only GENERIC EXTERNAL DATA DEPARTMENT Provider, Generic External Data 04/30/2025 Telephone [facility] [address] [place] [phone] Galo Fang MD November recall 04/24/2025 Travel 04/16/2025 Refill [facility] [address] [place] [address] Galo Fang MD Gastroesophageal reflux disease without esophagitis 04/11/2025 Refill [facility] [address] [place] [address] Galo Fang MD 04/10/2025 9:30 AM EDT Office Visit [facility] [place] [address] Galo Fang MD Hospital discharge follow-up (Primary Dx); Type 2 diabetes mellitus with diabetic polyneuropathy, with long-term current use of insulin (CMS/HCC); Essential hypertension; History of aortic valve replacement 04/10/2025 Travel 04/09/2025 Telephone [facility] [address] [place] [address] Galo Fang MD CHART PREP 03/30/2025 9:00 AM EDT Clinical Support [facility] [place] [address] 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, GULSHAN Opioid use disorder in remission 03/30/2025 Travel 03/23/2025 Refill [facility] [place] [address] Deidre Anton RN Opioid use disorder in remission 03/22/2025 Patient Outreach [facility] [place] [address] Galo Fang MD Transition Of Care (Tcm) (HDF scheduled) 03/18/2025 Orders Only GENERIC EXTERNAL DATA DEPARTMENT Provider, Generic External Data 03/16/2025 Refill [facility] [place] [address] Galo Fang MD 03/13/2025 1:15 PM EDT Office Visit [facility] [place] [address] Galo Fang MD Type 2 diabetes mellitus [...] diseases classified elsewhere 03/13/2025 Travel 03/12/2025 Telephone [facility] [address] [place] [address] Galo Fang MD Chart Prep 03/06/2025 Patient Outreach [facility] [address] [place] [address] Galo Fang MD Pre-visit Planning ([facility] screening was completed on 08/31/2024) 02/28/2025 Orders Only GENERIC EXTERNAL DATA DEPARTMENT Provider, Generic External Data 02/15/2025 Refill [facility] [address] [place] [address] Galo Fang MD from Last 3 Months [...] 06/22/2025 9:00 AM EST Office Visit [facility] [address] [place] [address] Carroll Roberts MD [address] [place] [address] 07/10/2025 10:00 AM EST Office Visit [facility] [address] [place] [address] Galo Fang MD [address] [place] [address] 09/21/2025 11:00 AM EST Office Visit [facility] [address] [place] [address] Paulo, Pat, OD [address] [place] [address] Health Maintenance Due Date Last Done Comments [...] Depression Screening 04/10/2026 04/10/2025, 04/10/20 Tobacco Screening 05/11/2026 05/11/2025 Eye Exam 07/31/2026 07/31/2024, 07/16, 07/31/2024, Additional history exists Colonoscopy 07/29/2028 07/29/2018, 07/16, 03/16/2013 Colorectal Cancer Screening 07/29/2028 Hepatitis A Vaccines Aged Out 12/16/2010, 07/23/20 No longer eligible based on patient's age [...] 025 9:26 AM EDT) No 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, 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 Procedure Name Priority Date/Time Associated Diagnosis Comments LOWER EXTREMITY VENOUS DUPLEX LEFT Routine 05/14/2025 12:40 PM EDT NT-PROBNP Routine 05/14/2025 12:28 PM EDT COMPREHENSIVE METABOLIC PANEL Routine 05/14/2025 12:28 PM EDT PROTHROMBIN TIME-INR Routine 05/14/2025 12:28 PM EDT CBC WITH AUTO DIFFERENTIAL Routine 05/14/2025 12:28 PM EDT D DIMER HIGH SENSITIVITY Routine 05/14/2025 9:43 AM EDT GLUCOSE, WHOLE BLOOD Routine 04/30/2025 1:32 PM EDT POCT GLYCATED HEMOGLOBIN, TOTAL Routine 04/10/2025 9:07 AM EDT Type 2 diabetes mellitus with diabetic polyneuropathy, with long-term current use of insulin ([facility]) POCT GLUCOSE Routine 04/10/2025 9:00 AM EDT Type 2 diabetes mellitus with diabetic polyneuropathy, with long-term current use of insulin ([facility]) CTA CHEST W AND WO [...] polyneuropathy, with long-term current use of insulin ([facility]) POCT GLYCOSYLATED HEMOGLOBIN (HGB A1C) Routine 03/13/2025 1:26 PM EDT Type 2 diabetes mellitus with diabetic polyneuropathy, with long-term current use of insulin ([facility]) TSH W/REFLEX TO FT4 Routine [...] Recently Relevant to Health Maintenance Results * Lower Extremity Venous Duplex (05/14/2025 12:40 PM EDT) 05/14/2025 12:4 0 PM EDT Narrative [facility] - 05/14/2025 1:07 PM EDT [address] [address] Ultrasound Report Signed Patient: Nemesio Brown MR#: [id number] : 1960 Acct:[id number] Age/Sex: 64 / M ADM Date: 05/14/25 Loc: .ED Attending Dr: Ordering Physician: Amee Acosta Date of Service: 05/14/25 Procedure(s): US venous duplex LE LT Accession Number(s): [id number] cc: Galo Prajapati MD; Amee Acosta Reason [...] Fabricio Gentile MD 05/14/2025 01:04 PM EDT Dictated By: Fabricio Castano MD Signed By: <Electronically signed by Fabricio Arthur MD in OV> 05/14/25 1304 DD/ 1240 TD/TT: 05/14/25 1248 Mine Engineering Superintendent: Procedure Note Donotuseinterpreter, Image - 05/14/[address] [address] Ultrasound Report Signed Patient: Josee BrownR#: [id number] : 1960Acct:[id number] Age/Sex: 64 / MADM Date: 05/14/25 Loc: .ED Attending Dr: Ordering Physician: Amee Acosta Date of Service: 05/14/25 Procedure(s): US venous duplex LE LT Accession Number(s): [id number] cc: Galo Prajapati MD; Amee Acosta Reason [...] 05/14/25 1304 DD/ 1240 TD/TT: 05/14/25 1248 Mine Engineering Superintendent: [facility] External Provider CV VASC ULAR PROCEDURES Final Result [facility] [address] [place] [phone] * NT-proBNP (05/14/2025 12:28 PM EDT) NT-proBNP 95.7 <300 pg/mL [facility] Comment:Reference Range:Age Group (years) NT-proBNP (pg/ml) InterpretationAll <300 Negative: HF unlikelyFor patients presenting to the ED with clinical suspicion ofnew onset or worsening HF, see below:18 to <50 >299.9 to <450.0 Grayzone: [id number] to 75 >299.9 to <900.0 other causes of>75 >299.9 to <1800.0 NT-proBNP [id number] to <50 >449.9 Positive: HF [id number] >899.9>75 >1799.9Note: Elevated NT-proBNP levels should be interpreted inthe context of other clinical information. 05/14/2025 12:2 8 PM EDT 05/14/2025 1:56 PM EDT us Generic External Data Provider LAB BLOOD ORDERAB LES Final Result [facility] [address] [place] [address] [phone] * (ABNORMAL) CBC auto differential (05/14/2025 12:28 PM EDT) Only the most recent of2 resultswithin the time period is included. White Blood Count 6.6 4.8 - 10.8 X10*3/uL [facility] Red Blood Count 4.47(L) 4.60 - 5.80 X10*6/uL [facility] Hemoglobin 12.5(L) 14.0 - 18.0 g/dl [facility] Hematocrit 38.2(L) 42.0 - 52.0 % [facility] Mean Corpuscular Volume 85.5 80.0 - 98.0 fL [facility] Mean Corpuscular Hemoglobin 28.0 27.0 - 33.0 pg [facility] Mean Corpuscular HGB Conc 32.7 31.0 - 36.0 g/dl [facility] Red Cell Distribution Width 13.2 11.0 - 16.0 % [facility] Platelet Count 185 160 - 400 X10*3/uL [facility] Mean Platelet Volume 9.2(L) 9.4 - 12.4 fL [facility] Neutrophils Percent Auto 59.3 45 - 73 % [facility] Imm Gran Pct Auto 0.2 0.0 - 0.4 % [facility] Lymphocytes Percent Auto 28.7 20 - 40 % [facility] Monocytes Percent Auto 5.6 2 - 11 % [facility] Eosinophils Percent Auto 5.3(H) 0 - 4 % [facility] Basophils Percent Auto 0.9 0 - 2 % [facility] NRBC Pct Auto 0.0 0.0 - 0.2 /100WBC [facility] Neutrophils Absolute Auto 3.9 2.0 - 8.3 x10*3/uL [facility] Imm Gran Abs Auto 0.01 0.00 - 0.03 X10*3/uL [facility] Lymphocytes Absolute Auto 1.9 1.2 - 4.9 X10*3/uL [facility] Monocytes Absolute Auto 0.4 0.1 - 1.2 X10*3/uL [facility] Eosinophils Absolute Auto 0.4 0.0 - 0.4 X10*3/uL [facility] Basophils Absolute Auto 0.1 0.0 - 0.2 X10*3/uL [facility] NRBC Abs Auto 0.000 0.0 - 0.012 X10*3/uL [facility] 05/14/2025 12:2 8 PM EDT 05/14/2025 12:32 PM EDT us Generic External Data Provider LAB BLOOD ORDERAB LES Final Result [facility] [address] [place] [phone] * (ABNORMAL) Prothrombin Time-INR (05/14/2025 12:28 PM EDT) Prothrombin Time 12.7(H) 10.9 - 12.4 SEC [facility] INTERNATIONAL NORM RATIO 1.1 0.9 - 1.1 [facility] Comment:INTERNATIONAL NORMAL IZED RATIO (INR) [...] Provider LAB BLOOD ORDERAB LES Final Result [facility] [address] [place] [address] [phone] * (ABNORMAL) Comprehensive Metabolic Panel (05/14/2025 12:28 PM EDT) Only the most recent of2 resultswithin the time period is included. Sodium 137 135 - 145 mmol/L [facility] Potassium 4.6 3.3 - 5.1 mmol/L [facility] Chloride 103 96 - 108 mmol/L [facility] Carbon Dioxide 29 22 - 29 mmol/L [facility] Anion Gap 10(L) 12 - 20 [facility] Urea Nitrogen (BUN) 22(H) 9 - 16 mg/dL [facility] Creatinine, Serum 0.86 0.5 - 1.4 mg/dL [facility] Creatinine Clr Calc Pharmacy 97.0 [facility] Comment:eGFR (calculated fro m the MDRD study equation) and eCrCl(calculated from the Cockcroft-Gault equation) are based ondifferent parameters and may not yield comparable results.If eCrCl result is absurd, please check patient'sheight/weight. Estimated Glomerular Filt Rate >60 [facility] Comment:Chronic Kidney Disea se: Estimated GFR < 60 mL/min/1.48n8Wvjpvz Kidney Disease: Estimated GFR < 15 mL/min/1.73m2 Glucose 188(H) 60 - 115 mg/dL [facility] Calcium 8.6 8.4 - 10.2 mg/dL [facility] Bilirubin, Total 0.4 0.0 - 1.0 mg/dL [facility] Aspartate Amino Transferase 23 5 - 37 U/L [facility] Alanine Aminotransferase 17 0 - 40 U/L [facility] Total Protein 7.1 6.5 - 8.0 g/dL [facility] Albumin Level 4.3 3.5 - 5.0 g/dL [facility] Alkaline Phosphatase 75 39 - 117 U/L [facility] 05/14/2025 12:2 8 PM EDT 05/14/2025 12:32 PM EDT us Generic External Data Provider LAB BLOOD ORDERAB LES Final Result Performing Organization Address [facility] de Phone Number [facility] [address] [place] [phone] * D Dimer High Sensitivity (05/14/2025 9:43 AM EDT) D Dimer High Sensitivity 278 NG/ML [facility] Comment:Results of Homero ca lled to Monae Mejia on 05/14/25at 1042 by RAINE.D- DIMER HS REFERENCE RANGENote: Our assay reports D-Dimer Units (D-DU).The cut-off value for venous thromboembolic (VTE) disease is230 ng/mL. This value has a very high negative predictivevalue when the patient has a low to moderate clinicalprobability of VTE.The upper limit of normal is 243 ng/mL. 05/14/2025 9:43 AM EDT 05/14/2025 9:43 AM EDT Susan Arriaga MD LAB BLOOD ORDERABLES Final Re sult Performing Organization Address [facility] de Phone Number [facility] [address] [place] [phone] * (ABNORMAL) Glucose, Whole Blood (04/30/2025 1:32 PM EDT) Glucose, Whole Blood 189(H) 60 - 115 mg/dL [facility] Comment:METER #: [id number] 0Testing performed in the Endocrinology Department [address] , [address], [facility]. 04/30/2025 1:32 PM EDT 04/30/2025 1:36 PM EDT us Generic External Data Provider LAB BLOOD ORDERAB LES Final Result [facility] [address] [place] [phone] * (ABNORMAL) POCT HGB A1C (04/10/2025 9:07 AM EDT) Hemoglobin A1C 7.6(A) 4.0 - 5.7 % QC Media Lot # [id number] Lot# Expiration Date [id number] Blood 04/10/2025 9:07 AM EDT Galo Ramey MD POINT OF CARE TEST EN TER/EDIT ORDERABLES Final Result * POCT Glucose (04/10/2025 9:00 AM EDT) Only the most recent of2 resultswithin the time period is included. Glucose Blood, POC 179 60 - 200 mg/dL Comment:random QC Media Lot # [id number] Lot# Expiration Date [id number] Blood Capillary blood specimen / Unknown 04/10/2025 9:00 AM EDT Galo Ramey MD POINT OF CARE TEST EN TER/EDIT ORDERABLES Final Result * CTA Abdomen Pelvis w/ and w/o Contrast (03/18/2025 11:23 AM EDT) Anatomical Region Laterality Modality Body, Pelvis, Abdomen Computed T omography 03/18/2025 11:2 3 AM EDT Narrative 03/18/2025 11:25 AM EDT [address] [address] [address] Scan Report Signed Patient: Nemesio Brown MR#: [id number] : 1960 Acct:[id number] Age/Sex: 64 / M ADM Date: 03/18/25 Loc: HO.ED Attending Dr: Ordering Physician: Elise Mccartney Date of Service: 03/18/25 Procedure(s): CT angio abdomen pelvis Accession Number(s): [id number] cc: Galo Prajapati MD; Elise Mccartney Report Number: [id number]: Total DLP = 671.00 mGy-cm CLINICAL HISTORY: r o dissection CT angiography chest, abdomen and pelvis with contrast. 3-D postprocessing. Comparison: None provided Findings: There is mild ectasia of the ascending thoracic aorta. The patient is status post aortic valve replacement. There is no evidence of aortic dissection. There are tfks-bk-golnwrag coronary artery calcifications. There is a small [...] 03/18/25 1124 DD/ 1123 TD/TT: 03/18/25 1123 Mine Engineering Superintendent: Procedure Note Donotuseinterpreter, Image - 03/18/[address] [place] [address] [address] Scan Report Signed Patient: Josee BrownR#: [id number] : 1960Acct:[id number] Age/Sex: 64 / MADM Date: 03/18/25 Loc: HO.ED Attending Dr: Ordering Physician: Elise Mccartney Date of Service: 03/18/25 Procedure(s): CT angio abdomen pelvis Accession Number(s): [id number] cc: Galo Prajapati MD; Elise Mccartney Report Number: [id number]: Total DLP = 671.00 mGy-cm CLINICAL HISTORY: r o dissection CT angiography chest, abdomen and pelvis with contrast. 3-D postprocessing. Comparison: None provided Findings: There is mild ectasia of the ascending thoracic aorta. The patient is status post aortic valve replacement. There is no evidence of aortic dissection. There are cocd-dc-fujizjqx coronary artery calcifications. There is a small [...] 03/18/25 1124 DD/ 1123 TD/TT: 03/18/25 1123 Mine Engineering Superintendent: [facility] External Provider IMG CT PROCEDURES Edited Result - Final * CTA Chest w/ and w/o Contrast (03/18/2025 11:23 AM EDT) Anatomical Region Laterality Modality Body, Chest Computed Tomogra phy 03/18/2025 11:2 3 AM EDT Narrative 03/18/2025 11:25 AM EDT [address] [address] [address] Scan Report Signed Patient: Nemesio Brown MR#: [id number] : 1960 Acct:[id number] Age/Sex: 64 / M ADM Date: 03/18/25 Loc: HO.ED Attending Dr: Ordering Physician: Elise Mccartney Date of Service: 03/18/25 Procedure(s): CT angio chest aorta Accession Number(s): [id number] cc: Galo Prajapati MD; Elise Mccartney Report Number: [id number]: Total DLP = 0.00 mGy-cm CLINICAL HISTORY: r o dissection CT angiography chest, abdomen and pelvis with contrast. 3-D postprocessing. Comparison: None provided Findings: There is mild ectasia of the ascending thoracic aorta. The patient is status post aortic valve replacement. There is no evidence of aortic dissection. There are nlwr-bg-oqadwteh coronary artery calcifications. There is a small [...] 03/18/25 1124 DD/ 1123 TD/TT: 03/18/25 1123 Mine Engineering Superintendent: Procedure Note Donotuseinterpreter, Image - 03/18/[address] [place] [address] [address] Scan Report Signed Patient: Josee BrownR#: [id number] : 1960Acct:[id number] Age/Sex: 64 / MADM Date: 03/18/25 Loc: HO.ED Attending Dr: Ordering Physician: Elise Mccartney Date of Service: 03/18/25 Procedure(s): CT angio chest aorta Accession Number(s): [id number] cc: Galo Prajapati MD; Elise Mccartney Report Number: [id number]: Total DLP = 0.00 mGy-cm CLINICAL HISTORY: r o dissection CT angiography chest, abdomen and pelvis with contrast. 3-D postprocessing. Comparison: None provided Findings: There is mild ectasia of the ascending thoracic aorta. The patient is status post aortic valve replacement. There is no evidence of aortic dissection. There are rqqc-zu-yfmufthj coronary artery calcifications. There is a small [...] 03/18/25 1124 DD/ 1123 TD/TT: 03/18/25 1123 Mine Engineering Superintendent: [facility] External Provider IMG CT PROCEDURES Edited Result - Final * (ABNORMAL) High Sensitivity Troponin I (03/18/2025 9:29 AM EDT) TROPONIN I HIGH SENSITIVITY 159.4(HH) <3.5 - 35.0 ng/L [facility] Comment:Critical value for T ROPONIN: Results called to and readback by: CHUCHO Person calling: PUJA Date: 03-18-25 Time:1032The Meza high sensitivity Troponin-I results should beused in conjunction with other diagnostic information suchas ECG, clinical observations and information, and patientsymptoms to aid in the diagnosis of NH. 03/18/2025 9:29 AM EDT 03/18/2025 9:32 AM EDT us Generic External Data Provider LAB BLOOD ORDERAB LES Final Result Performing Organization Address [facility] Co de Phone Number [facility] [address] [place] [phone] * HOLD LT BLUE - POSSIBLE COAG (03/18/2025 9:29 AM EDT) Hold Lt Blue - Possible Coag SEE NOTE [facility] Comment:Specimen will be hel d untested for 4 hours. Call Hematologyif testing is desired. 03/18/2025 9:29 AM EDT 03/18/2025 9:34 AM EDT us Generic External Data Provider LAB BLOOD ORDERAB LES Final Result Performing Organization Address [facility] Co de Phone Number [facility] [address] [place] [phone] * (ABNORMAL) B Type Natriuretic Peptide (BNP) (03/18/2025 9:29 AM EDT) B Type Natriuretic Peptide 387(H) <100 pg/mL [facility] 03/18/2025 9:29 AM EDT 03/18/2025 10:37 AM EDT us Generic External Data Provider LAB BLOOD ORDERAB LES Final Result Performing Organization Address [facility] Co de Phone Number [facility] [address] [place] [address] [phone] * Magnesium (03/18/2025 9:29 AM EDT) Pathologist [facility] Magnesium 2.0 1.6 - 2.6 mg/dL [facility] 03/18/2025 9:29 AM EDT 03/18/2025 9:32 AM EDT Generic External Data Provider LAB BLOOD ORDERAB LES Final Result Performing Organization Address City/[facility]/ZIP Co de Phone Number [facility] [address] [place] [phone] * Lipase (03/18/2025 9:29 AM EDT) [facility] Lipase 10 8 - 78 U/L [facility] 03/18/2025 9:29 AM EDT 03/18/2025 9:32 AM EDT Generic External Data Provider LAB BLOOD ORDERAB LES Final Result Performing Organization Address City/[facility]/ZIP Co de Phone Number [facility] [address] [place] [address] [phone] * (ABNORMAL) POCT glycosylated hemoglobin (Hgb A1c) (03/13/2025 1:26 PM EDT) [facility] Hemoglobin A1C 7.8(A) 4.0 - 5.7 % QC Media Lot # [id number] Lot# Expiration Date Blood Capillary blood specimen / Unknown 03/13/2025 1:26 PM EDT Galo Ramey MD POINT OF CARE TEST EN TER/EDIT ORDERABLES Final Result * TSH with Reflex to Free T4 (02/28/2025 10:04 AM EDT) [facility] TSH reflex Free T4 2.05 0.32 - 4.0 uIU/mL [facility] 02/28/2025 10:0 4 AM EDT 02/28/2025 10:04 AM EDT us Generic External Data Provider LAB BLOOD ORDERAB LES Final Result Performing Organization Address [facility] de Phone Number [facility] [address] [place] [phone] * Platelet Count (02/28/2025 10:04 AM EDT) Platelet Count 264 160 - 400 X10*3/uL [facility] 02/28/2025 10:0 4 AM EDT 02/28/2025 10:04 AM EDT us Generic External Data Provider LAB BLOOD ORDERAB LES Final Result Performing Organization Address [facility] Phone Number [facility] [address] [place] [address] [phone] * ALT (02/28/2025 10:04 AM EDT) Alanine Aminotransferase 28 0 - 40 U/L [facility] 02/28/2025 10:0 4 AM EDT 02/28/2025 10:04 AM EDT us Generic External Data Provider LAB BLOOD ORDERAB LES Final Result Performing Organization Address [facility] de Phone Number [facility] [address] [place] [address] [phone] * Amylase (02/28/2025 10:04 AM EDT) Amylase 78 28 - 100 U/L [facility] 02/28/2025 10:0 4 AM EDT 02/28/2025 10:04 AM EDT us Generic External Data Provider LAB BLOOD ORDERAB LES Final Result Performing Organization Address [facility] Co de Phone Number [facility] [address] [place] [phone] * (ABNORMAL) Lipid Panel, Standard (02/28/2025 10:04 AM EDT) Triglycerides 187(H) <150 mg/dL [facility] Comment:Desirable Triglyceri de: less than 150 mg/dLBorderline High Triglyceride 150-199 mg/dLHigh Triglyceride: 200-499 mg/dLVery High Triglyceride: greater than or equal to 5OO mg/dL Cholesterol 164 <200 mg/dL [facility] Comment:Desirable Cholestero l: less than 200 mg/dLBorderline High Cholesterol: 200-239 mg/dLHigh Cholesterol: greater than 239 mg/dL LDL Cholesterol Calculated 91 <100 mg/dL [facility] Comment:Desirable LDL: less than 100 mg/dLNear Optimal/Above Optimal LDL: 110- 129 mg/dLBorderline High LDL: 130-159 mg/dLHigh LDL: 160-189 mg/dLVery High LDL: greater than or equal to 190 mg/dL HDL Cholesterol 36(L) >40 mg/dL [facility] Comment:Desirable HDL: great er than 40 mg/dL Note: This HDL assay may give artificially low results in patients with liver disease. 02/28/2025 10:0 4 AM EDT 02/28/2025 10:04 AM EDT us Generic External Data Provider LAB BLOOD ORDERAB LES Final Result [facility] [address] [place] [phone] * Albumin, Random Urine W/Creatinine (02/28/2025 10:02 AM EDT) Creatinine, Urine 208.62 mg/dL [facility] Microalbumin Urine 26.0 mg/L [facility] Microalbum Creatinine Ratio Ur 12.4 <30 ug/mg cr [facility] Comment:Albumin/Creatinine R atio Reference Ranges: Normal: < 30 ug/mg creatinine Microalbuminuria: 30 - 300 ug/mg creatinineClinical Albuminuria: > 300 ug/mg creatinine 02/28/2025 10:0 2 AM EDT 02/28/2025 10:36 AM EDT Generic External Data Provider LAB URINE ORDERAB LES Final Result Performing Organization Address [facility] Co de Phone Number [facility] [address] [place] [phone] * Hepatitis Panel, General (06/07/2024 10:41 AM EDT) Hepatitis A IgM Nonreactive Nonreactive [facility] Comment:IgM antibodies to ALBRECHT V not detected; does not exclude earlyacute or recovered HAV infection. ~Hepatitis B Surface Antibody NONREACTIVE Nonreactive [facility] Comment:Nonreactive: < 8.00 mIU/mL Hepatitis B Core Antibody Nonreactive Nonreactive [facility] Hepatitis C Antibody Nonreactive Nonreactive [facility] Comment:Antibodies to HCV no t detected; does not exclude early acuteHCV infection. Hepatitis B Surface Ag Negative Negative [facility] 06/07/2024 10:4 1 AM EDT 06/07/2024 10:41 AM EDT Generic External Data Provider LAB BLOOD ORDERAB LES Final Result Performing Organization Address [facility] de Phone Number [facility] [address] [place] [phone] * HIV-1/2 Antigen and Antibodies, Fourth Generation, with Reflexes (06/07/2024 10:41 AM EDT) HIV AB/AG Nonreactive Nonreactive [facility] Comment:HIV-1 p24 Ag and/or HIV-1/HIV-2 Ab not detected.A test result that is nonreactive does not exclude thepossibility of exposure to or infection with HIV-1 and/orHIV-2. Nonreactive results in this assay for individualswith prior exposure to HIV-1 and/or HIV-2 may be due toantigen and antibody levels that are below the limit ofdetection of this assay.[employer] HIV Ag/Ab Combo assay result andsupplemental assay results should be interpreted inconjunction with the patient's clinical presentation,history and other laboratory results. If the results areinconsistent with clinical evidence, additional testing issuggested to confirm the result. Blood Venous blood specimen / Unknown 06/07/2024 10:41 AM EDT 06/07/2024 10:41 AM EDT Carroll Roberts MD LAB BLOOD ORDERABLES Final Res ult [facility] [address] [place] [phone] [phone] * Colonoscopy (07/29/2018) Colonoscopy Normal Normal 07/29/2018 Narrative Georgia Rubio - 07/29/2018 1:52 PM EST Recommended 10 year follow up Historical Provider HEALTH MAINTENANCE Final Result from Last 3 Months or Most Recently Relevant to Health Maintenance [place] [address] [place] [address] C3 Care Teams Cafeteria Cook Relationship Specialty Start Date End Date Galo Fang MD [address] [place] [phone] PCP - General Internal Medicine 04/04/14
--- OUTSIDE RECORDS SUMMARY | 2025-05-15 15:40 | XMS_ITS | Encounter Summary ---
Author Organization [employer] Address [address] [facility] 7t [place] [address] Care Team Providers Care Deputy Prosecuting Attorney Name Role Phone Galo Fang MD Primary Care Provide r Encounter Details Date Type Department Care Team ([facility] st Contact Info) Description 05/15/2025 Results Follow-Up [facility] [address] [place], [place] [phone] Susan Arriaga MD [address] [place], [place] [phone] D Dimer High Sensitivity Social History Tobacco Use Types Packs/Day Years [...] Description 06/22/2025 9:00 AM EST Office Visit [facility] [address] [place] [address] Carroll Roberts MD [address] [place] [address] 07/10/2025 10:00 AM EST Office Visit [facility] [address] [place] [address] Galo Fang MD [address] [place] [address] 09/21/2025 11:00 AM EST Office Visit [facility] OPTOM[facility] [address] [place] [address] Pat Bates, OD [address] [place] [address] documented as of this encounter Goals Goal [...] documented as of this encounter Care Teams Deputy Prosecuting Attorney Relationship Specialty Start Date End Date Galo Fang MD [address] [place] [address] PCP - General Internal Medicine 04/04/14 documented as of this encounter
--- OUTSIDE RECORDS SUMMARY | 2025-05-15 15:40 | XMS_ITS | Encounter Summary ---
Author Organization [employer] Address [address] [place] [address] 7 [place] [address] Care Team Providers Care Corporate Trainer Name Role Phone Galo Fang MD Primary Care Provide r Reason for Visit * Reason Comments Med Refill Encounter Details Date Type Department Care Team (Late Contact Info) Description 11/07/2022 Refill [facility] [address] [place] [phone] Carroll Roberts MD [address] [place] [address] [phone] Uncomplicated opioid dependence (CMS/HCC) Social History Tobacco [...] Description 06/22/2025 9:00 AM EST Office Visit [facility] [address] [place] [phone] Carroll Roberts MD [address] [place] [address] [phone] 07/10/2025 10:00 AM EST Office Visit [facility] [address] [place] [address] Galo Fang MD [address] [place] [phone] 09/21/2025 11:00 AM EST Office Visit [facility] [address] [place], [place] [phone] Pat Bates, OD [address] [place] [address] documented as of this encounter Visit Diagnoses Diagnosis Uncomplicated opioid dependence (CMS/HCC) (HCC) documented in this encounter Care Teams Corporate Trainer Relationship Specialty Start Date End Date Galo Fang MD [address] [place], [place] [phone] PCP - General Internal Medicine 04/04/14 documented as of this encounter
--- OUTSIDE RECORDS SUMMARY | 2025-05-15 15:40 | XMS_ITS | Encounter Summary ---
Author Organization [employer] Address [address] [place] [address] [address], [place] [address] Care Team Providers Care Dietitian Assistant Name Role Phone Galo Fang MD Primary Care Provide r Reason for Visit * Reason Comments Med Refill Encounter Details Date Type Department Care Team ([facility] Contact Info) Description 04/27/2023 Refill [facility] [address] [place] [phone] Carroll Roberts MD [address] [place] [address] [phone] Uncomplicated opioid dependence (CMS/HCC) Social History Tobacco [...] 06/22/2025 9:00 AM EST Office Visit [facility] [address] [place] [phone] Carroll Roberts MD [address] [place] [phone] 07/10/2025 10:00 AM EST Office Visit [facility] [address] [place] [address] [phone] Galo Fang MD [address] [place] [address] [phone] 09/21/2025 11:00 AM EST Office Visit [facility] OPTOMETRY [address] [place], [place] [phone] Pat Bates, OD [address] [place], [place] [phone] documented as of this encounter Visit Diagnoses Diagnosis Uncomplicated opioid dependence (CMS/HCC) (HCC) documented in this encounter Care Teams Dietitian Assistant Relationship Specialty Start Date End Date Galo Fang MD [address] [place], [place] [phone] PCP - General Internal Medicine 04/04/14 documented as of this encounter
--- OUTSIDE RECORDS SUMMARY | 2025-05-15 15:40 | XMS_ITS | Encounter Summary ---
Author Organization [employer] Address [address] [place] [address] 7 [place] [address] Care Team Providers Care Bag Machine Adjuster Name Role Phone Galo Fang MD Primary Care Provide r Reason for Visit * Reason Comments Med Refill Encounter Details Date Type Department Care Team (Late Contact Info) Description 03/02/2023 Refill [facility] [address] [place] [phone] Carroll Roberts MD [address] [place] [address] [phone] Uncomplicated opioid dependence (CMS/HCC) Social History Tobacco [...] Description 06/22/2025 9:00 AM EST Office Visit [facility] [address] [place] [phone] Carroll Roberts MD [address] [place] [address] [phone] 07/10/2025 10:00 AM EST Office Visit [facility] [address] [place] [phone] Galo Fang MD [address] [place] [phone] 09/21/2025 11:00 AM EST Office Visit [facility] OPTOMETRY [address] [place], [place] [phone] Pat Bates, OD [address] [place] [address] documented as of this encounter Visit Diagnoses Diagnosis Uncomplicated opioid dependence (CMS/HCC) (HCC) documented in this encounter Care Teams Bag Machine Adjuster Relationship Specialty Start Date End Date Galo Fang MD [address] [place], [place] [phone] PCP - General Internal Medicine 04/04/14 documented as of this encounter
--- OUTSIDE RECORDS SUMMARY | 2025-05-15 15:40 | XMS_ITS | Encounter Summary ---
Author Organization [email or web address] Address [address] [facility] 7t [place] [address] Care Team Providers Care Designer Writer Name Role Phone Galo Fang MD Primary [...] Description 06/22/2025 9:00 AM EST Office Visit [facility] [address] [place] [address] Carroll Roberts MD [address] [place] [address] 07/10/2025 10:00 AM EST Office Visit [facility] [address] [place] [address] Galo Fang MD [address] [place] [address] 09/21/2025 11:00 AM EST Office Visit [facility] OPTOMETRY [address] [place] [address] Pat Bates, OD [address] [place] [address] documented as of this encounter Goals Goal [...] documented as of this encounter Care Teams Designer Writer Relationship Specialty Start Date End Date Galo Fang MD [address] [place] [address] PCP - General Internal Medicine 04/04/14 documented as of this encounter
--- OUTSIDE RECORDS SUMMARY | 2025-05-15 15:40 | XMS_ITS | Encounter Summary ---
Author Organization [employer] Address [address] [facility] 7t [place] [address] Care Team Providers Care Corsets Salesperson Name Role Phone Galo Fang MD Primary Care Provide r Reason for Visit * Reason Comments Med Refill Encounter Details Date Type Department Care Team ([facility] st Contact Info) Description 09/08/2024 Refill [facility] [address] [place] [address] Carroll Roberts MD [address] [place], [place] [phone] Uncomplicated opioid dependence (CMS/HCC) Social History Tobacco [...] Upcoming Encounters Date Type Department Care Team ([facility] st Contact Info) Description 06/22/2025 9:00 AM EST Office Visit [facility] [address] [place] [address] Carroll Roberts MD [address] [place] [address] 07/10/2025 10:00 AM EST Office Visit [facility] [address] [place] [address] Galo Fang MD [address] [place] [address] 09/21/2025 11:00 AM EST Office Visit [facility] OPTOMETRY [address] [place] [address] Pat Bates, OD [address] [place] [address] documented as of this encounter Visit Diagnoses Diagnosis Uncomplicated opioid dependence (CMS/HCC) (HCC) documented in this encounter Additional Health Concerns Assessment Noted Time PHQ-9 Depression Total Score: 0 05/26/20 24 9:56 AM EDT documented as of this encounter Care Teams Corsets Salesperson Relationship Specialty Start Date End Date Galo Fang MD [address] [place] [address] PCP - General Internal Medicine 04/04/14 documented as of this encounter
--- OUTSIDE RECORDS SUMMARY | 2025-05-15 15:40 | XMS_ITS | Encounter Summary ---
Author Organization [employer] Address [address] [place] [address] 7 [place] [address] Care Team Providers Care Primer And Powder Canning Leader Name Role Phone Galo Fang MD Primary Care Provide r Encounter Details Date Type Department Care Team (Late Contact Info) Description 06/14/2023 Abstract [facility] [address] [place] [phone] Galo Fang MD [address] [place] [address] [phone] Social History Tobacco Use Types Packs/Day Years [...] Description 06/22/2025 9:00 AM EST Office Visit [facility] [address] [place] [phone] Carroll Roberts MD [address] [place] [address] [phone] 07/10/2025 10:00 AM EST Office Visit [facility] [address] [place] [phone] Galo Fang MD [address] [place] [address] [phone] 09/21/2025 11:00 AM EST Office Visit [facility] OPTOMETRY [address] [place] [address] Pat Bates, OD [address] [place] [address] documented as of this encounter Procedures Procedure [...] on filedocumented in this encounter Care Teams Primer And Powder Canning Leader Relationship Specialty Start Date End Date Galo Fang MD [address] [place] [address] PCP - General Internal Medicine 04/04/14 documented as of this encounter
--- OUTSIDE RECORDS SUMMARY | 2025-05-15 15:40 | XMS_ITS | Encounter Summary ---
Author Organization [employer] Address [address] [place] [address] 7[place], [place] [address] Care Team Providers Care Production Associate Name Role Phone Galo Fang MD Primary Care Provide r Reason for Visit * Reason Comments Med Refill Encounter Details Date Type Department Care Team (Late Contact Info) Description 11/12/2022 Refill [facility] [address] [place] [phone] Galo Fang MD [address] [place] [phone] Gastroesophageal reflux disease, unspecified whether esophagitis present [...] 9:00 AM EST Office Visit [facility] MED[facility] [address] [place] [phone] Carroll Roberts MD [address] [place] [address] 07/10/2025 10:00 AM EST Office Visit [facility] MEDICINE [address] [place] [address] 9[address] Galo Fang MD [address] [place], [place] [phone] 09/21/2025 11:00 AM EST Office Visit [facility] OPTOMETRY [address] [place], [place] [phone] Pat Bates, OD [address] [place] [address] documented as of this encounter Visit Diagnoses Diagnosis Gastroesophageal reflux disease, unspecified whether esophagitis present documented in this encounter Care Teams Production Associate Relationship Specialty Start Date End Date Galo Fang MD [address] [place], [place] [phone] PCP - General Internal Medicine 04/04/14 documented as of this encounter
--- OUTSIDE RECORDS SUMMARY | 2025-05-15 15:40 | XMS_ITS | Encounter Summary ---
Author Organization [employer] Address [address] [place] [address] [address] [place] [address] Care Team Providers Care Steel Burner Name Role Phone Galo Fang MD Primary Care Provide r Reason for Visit * Reason Comments Med Refill Encounter Details Date Type Department Care Team (Late Contact Info) Description 11/03/2022 Refill [facility] [address] [place] [phone] Jess Barriga MD [address] [place] [phone] Mild intermittent asthma without complication Social History [...] Description 06/22/2025 9:00 AM EST Office Visit [facility] [address] [place] [phone] Carroll Roberts MD [address] [place] [address] [phone] 07/10/2025 10:00 AM EST Office Visit [facility] [address] [place] [address] [phone] Galo Fang MD [address] [place] [address] [phone] 09/21/2025 11:00 AM EST Office Visit [facility] OPTOMETRY [address] [place], [place] [phone] Pat Bates, OD [address] [place], [place] [phone] documented as of this encounter Visit Diagnoses Diagnosis Mild intermittent asthma without complication documented in this encounter Care Teams Steel Burner Relationship Specialty Start Date End Date Galo Fang MD [address] [place], [place] [phone] PCP - General Internal Medicine 04/04/14 documented as of this encounter
--- OUTSIDE RECORDS SUMMARY | 2025-05-15 15:40 | XMS_ITS | Encounter Summary ---
Author Organization [employer] Address [address] [place] [address] 7t [place] [address] Care Team Providers Care Tip Printer Name Role Phone Galo Fang MD Primary Care Provide r Reason for Visit * Reason Onset Date Comments Med Refill TP 01/02/2023 Encounter Details Date Type Department Care Team (Late st Contact Info) Description 01/02/2023 Telephone [facility] [address] [place] [address] [phone] Carroll Roberts MD [address] [place], [place] [phone] Med Refill; TP Social History Tobacco Use [...] 06/22/2025 9:00 AM EST Office Visit [facility] [address] [place] [address] Carroll Roberts MD [address] [place] [address] 07/10/2025 10:00 AM EST Office Visit [facility] [address] [place] [address] Galo Fang MD [address] [place] [address] 09/21/2025 11:00 AM EST Office Visit [facility] OPTOMETRY [address] [place] [address] Pat Bates, OD [address] [place] [address] documented as of this encounter Visit Diagnoses Diagnosis Uncomplicated opioid dependence (CMS/HCC) (HCC) documented in this encounter Care Teams Tip Printer Relationship Specialty Start Date End Date Galo Fang MD [address] [place] [phone] PCP - General Internal Medicine 04/04/14 documented as of this encounter
--- OUTSIDE RECORDS SUMMARY | 2025-05-15 15:41 | XMS_ITS | Encounter Summary ---
Author Organization [employer] Address [address] [facility] 7t [place] [address] Care Team Providers Care Substation Operator Name Role Phone Galo Fang MD Primary Care Provide r Reason for Visit * Reason Comments Med Refill Encounter Details Date Type Department Care Team ([facility] st Contact Info) Description 04/20/2024 Refill [facility] [address] [place], [place] [phone] Jocelyn Cruz FNP [address] [place] [address] Social History Tobacco Use Types Packs/Day Years [...] 9:00 AM EST Office Visit [facility] MEDICINE [address] [place] [address] Carroll Roberts MD [address] [place] [address] 07/10/2025 10:00 AM EST Office Visit [facility] MED[facility]INE [address] [place] [address] Galo Fang MD [address] [place] [address] 09/21/2025 11:00 AM EST Office Visit [facility] OPTOMETRY [address] [place] [address] Paulo, Pat, OD [address] [place] [address] documented as of this encounter Visit Diagnoses Not on filedocumented in this encounter Additional Health Concerns Assessment Noted Time PHQ-9 Depression Total Score: 0 07/01/20 23 1:10 PM EST documented as of this encounter Care Teams Substation Operator Relationship Specialty Start Date End Date Galo Fang MD [address] [place] [address] PCP - General Internal Medicine 04/04/14 documented as of this encounter
--- OUTSIDE RECORDS SUMMARY | 2025-05-15 15:41 | XMS_ITS | Encounter Summary ---
Author Organization [employer] Address [address] [facility] 7t [place] [address] Care Team Providers Care Surface Lay Out Technician Name Role Phone Galo Fang MD Primary Care Provide r Reason for Visit * Reason Comments Med Refill Encounter Details Date Type Department Care Team ([facility] st Contact Info) Description 04/20/2024 Refill [facility] [address] [place] [phone] Karuna Covington MD [address] [place] [phone] Foreign body sensation, right eye Social History [...] Office Visit [facility] [address] [place] [address] Carroll Roberts MD [address] [place] [address] 07/10/2025 10:00 AM EST Office Visit [facility] [address] [place] [address] Galo Fang MD [address] [place] [address] 09/21/2025 11:00 AM EST Office Visit [facility] [address] [place] [address] Paulo, Pat, OD [address] [place] [address] documented as of this encounter Visit Diagnoses Diagnosis Foreign body sensation, right eye documented in this encounter Additional Health Concerns Assessment Noted Time PHQ-9 Depression Total Score: 0 07/01/20 23 1:10 PM EST documented as of this encounter Care Teams Surface Lay Out Technician Relationship Specialty Start Date End Date Galo Fang MD [address] [place] [id number] PCP - General Internal Medicine 04/04/14 documented as of this encounter
--- OUTSIDE RECORDS SUMMARY | 2025-05-15 15:41 | XMS_ITS | Encounter Summary ---
Author Organization [employer] Address [address] [facility] 7t [place] [address] Care Team Providers Care Drum Carrier Name Role Phone Galo Fang MD Primary Care Provide r Reason for Visit * Reason Comments Med Refill Encounter Details Date Type Department Care Team ([facility] st Contact Info) Description 12/03/2023 Refill [facility] [address] [place] [address] Carroll Roberts MD [address] [place], [place] [phone] Uncomplicated opioid dependence (CMS/HCC) Social History Tobacco [...] Description 06/22/2025 9:00 AM EST Office Visit [facility] [address] [place] [address] Carroll Roberts MD [address] [place] [address] 07/10/2025 10:00 AM EST Office Visit [facility] [address] [place] [address] Galo Fang MD [address] [place] [address] 09/21/2025 11:00 AM EST Office Visit [facility] [address] [place] [address] PauloPat womack, OD [address] [place] [address] documented as of this encounter Visit Diagnoses Diagnosis Uncomplicated opioid dependence (CMS/HCC) (HCC) documented in this encounter Additional Health Concerns Assessment Noted Time PHQ-9 Depression Total Score: 0 07/01/20 23 1:10 PM EST documented as of this encounter Care Teams Drum Carrier Relationship Specialty Start Date End Date Galo Fang MD [address] [place] [address] PCP - General Internal Medicine 04/04/14 documented as of this encounter
--- OUTSIDE RECORDS SUMMARY | 2025-05-15 15:41 | XMS_ITS | Encounter Summary ---
Author Organization [employer] Address [address] [facility] 7t [place] [address] Care Team Providers Care Metal Technician Name Role Phone Galo Fang MD Primary Care Provide r Reason for Visit * Reason Comments Med Refill Encounter Details Date Type Department Care Team ([facility] st Contact Info) Description 01/28/2024 Refill [facility] [address] [place] [address] Carroll Roberts MD [address] [place], [place] [phone] Uncomplicated opioid dependence (CMS/HCC) Social History Tobacco [...] 9:00 AM EST Office Visit [facility] [address] [place] [address] Carroll Roberts MD [address] [place] [address] 07/10/2025 10:00 AM EST Office Visit [facility] [address] [place] [address] Galo Fang MD [address] [place] [address] 09/21/2025 11:00 AM EST Office Visit [facility] [address] [place] [address] PauloPat womack, OD [address] [place] [address] documented as of this encounter Visit Diagnoses Diagnosis Uncomplicated opioid dependence (CMS/HCC) (HCC) documented in this encounter Additional Health Concerns Assessment Noted Time PHQ-9 Depression Total Score: 0 07/01/20 23 1:10 PM EST documented as of this encounter Care Teams Metal Technician Relationship Specialty Start Date End Date Galo Fang MD [address] [place] [id number] PCP - General Internal Medicine 04/04/14 documented as of this encounter
--- OUTSIDE RECORDS SUMMARY | 2025-05-15 15:41 | XMS_ITS | Encounter Summary ---
Author Organization [employer] Address [address] [facility] 7t [place] [address] Care Team Providers Care Business Development Name Role Phone Galo Fang MD Primary Care Provide r Reason for Visit * Reason Comments Med Refill Encounter Details Date Type Department Care Team ([facility] st Contact Info) Description 12/23/2023 Refill [facility] [address] [place], [place] [phone] Carroll Roberts MD [address] [place], [place] [phone] Constipation, unspecified constipation type Social History Tobacco [...] Description 06/22/2025 9:00 AM EST Office Visit [facility] [address] [place] [address] Carroll Roberts MD [address] [place] [address] 07/10/2025 10:00 AM EST Office Visit [facility] [address] [place] [address] Galo Fang MD [address] [place] [address] 09/21/2025 11:00 AM EST Office Visit [facility] [address] [place] [address] Paulo, Pat, OD [address] [place] [address] documented as of this encounter Visit Diagnoses Diagnosis Constipation, unspecified constipation type documented in this encounter Additional Health Concerns Assessment Noted Time PHQ-9 Depression Total Score: 0 07/01/20 23 1:10 PM EST documented as of this encounter Care Teams Business Development Relationship Specialty Start Date End Date Galo Fang MD [address] [place] [phone] PCP - General Internal Medicine 04/04/14 documented as of this encounter
--- OUTSIDE RECORDS SUMMARY | 2025-05-15 15:41 | XMS_ITS | Encounter Summary ---
Author Organization [employer] Address [address] [facility] 7t [place] [address] Care Team Providers Care Iron Worker Name Role Phone Galo Fang MD Primary Care Provide r Reason for Visit * Reason Onset Date Comments Call Back Request 05/14/2025 Encounter Details Date Type Department Care Team ([facility] Contact Info) Description 05/14/2025 Telephone [facility] [address] [place], [place] [phone] Galo Fang MD [address] [place] [address] Call Back Request Social History Tobacco Use Types Packs/Day Years [...] encounter Miscellaneous Notes * Telephone Encounter - Kennedy Bojorquezarez - 05/14/2025 10:43 AM EDT PT is requesting a callback regarding an unsatisfactory experience at [facility]. Patient reports that upon arrival, the registration staff stated there were no lab orders in the system and appeared unwilling to assist. TC then went to the Senior Research Scientist, who confirmed the orders were in the system and should be accessible. When the patient returned to lab registration, he observed the staff member using a cell phone and reported that the individual walked away without assisting him. cath lab radiology technician came out and informed him that he would not be seen at that location and must go to [facility] instead. Patient would like a call back to discuss the treatment and lack of support he received during thisvisit. documented in this encounter Plan of Treatment Upcoming Encounters Date Type Department Care Team (Late st Contact Info) Description 06/22/2025 9:00 AM EST Office Visit [facility] [address] [place] [address] Carroll Roberts MD [address] [place] [address] 07/10/2025 10:00 AM EST Office Visit [facility] [address] [place] [phone] Galo Fnag MD [address] [place], [place] [phone] 09/21/2025 11:00 AM EST Office Visit [facility] [address] [place], [place] [phone] Pat Bates, OD [address] [place], [place] [phone] documented as of this encounter Goals Goal [...] documented as of this encounter Care Teams Iron Worker Relationship Specialty Start Date End Date Galo Fang MD [address] [place], [place] [phone] PCP - General Internal Medicine 04/04/14 documented as of this encounter
--- OUTSIDE RECORDS SUMMARY | 2025-05-15 15:41 | XMS_ITS | Encounter Summary ---
Author Organization [employer] Address [address] [facility] 7t [place] [address] Care Team Providers Care Technical Project Coordinator Name Role Phone Galo Fang MD Primary Care Provide r Reason for Visit * Reason Onset Date Comments CRITICAL LAB 05/14/2025 Encounter Details Date Type Department Care Team ([facility] st Contact Info) Description 05/14/2025 Telephone [facility] [address] [place] [address] Galo Fang MD [address] [place] [address] CRITICAL LAB Social History Tobacco Use Types Packs/Day Years [...] encounter Miscellaneous Notes * Telephone Encounter - Vickie Orozco RN - 05/14/2025 10:57 AM EDT Spoke to Dr Carlson in office, orders as follows: - pt to go to ED for STAT CTA chest Called pt via BLS [id number] Quan, explained to pt that labs came back that show high likelihood of blood clot and that provider recommends that he go to the ER now for STAT imagining to investigate thisfurther. Explained will fax over result and call [facility] ED. Pt verbalized understanding, plans to go to [facility] as soon as possible, no further questions. Called [facility] ED, spoke with Zaida, gave expect, faxed over office note, labs, med list, confirmation received. * Telephone Encounter - Monae Moreno RN - 05/14/2025 10:42 AM EDT TC incoming from [facility] with [facility] lab with critical lab: Pt D-Dimer [id number] GAFFNEY aware Will route to ordering provider and walk in nurses to advise. documented in this encounter Plan of Treatment Upcoming Encounters Date Type Department Care Team (Late st Contact Info) Description 06/22/2025 9:00 AM EST Office Visit [facility] [address] [place] [address] Carroll Roberts MD [address] [place] [address] 07/10/2025 10:00 AM EST Office Visit [facility] [address] [place] [address] Galo Fang MD [address] [place] [address] 09/21/2025 11:00 AM EST Office Visit [facility] [address] [place] [address] Pat Bates, OD [address] [place] [address] documented as of this encounter Goals Goal [...] documented as of this encounter Care Teams Technical Project Coordinator Relationship Specialty Start Date End Date Galo Fang MD [address] [place] [address] PCP - General Internal Medicine 04/04/14 documented as of this encounter
== END 2025-05-15 15:29 | disposition home or self-care (01) ==
LOC: HO.HCS 14:17
PROVIDERS: PCP Internal Medicine; Visit Provider Nurse Practitioner Family
DX: I47.29 Other ventricular tachycardia (principal); I44.2 Atrioventricular block, complete; Z95.0 Presence of cardiac pacemaker; I25.10 Atherosclerotic heart disease of native coronary artery without angina pectoris; Z95.2 Presence of prosthetic heart valve; T82.09XA Other mechanical complication of heart valve prosthesis, initial encounter; Z86.79 Personal history of other diseases of the circulatory system; I10 Essential (primary) hypertension; E78.5 Hyperlipidemia, unspecified; I77.89 Other specified disorders of arteries and arterioles
CPT/HCPCS: 93010; 99215

== ENCOUNTER 2025-05-17 10:42 | Emergency (ER) | payer MEDICARE, MEDICAID, SELFPAY ==
--- NOTE | ~2025-05-17 | XR_ITS ---
EXAMINATION: XR CHEST CLINICAL INFORMATION: chest pain COMPARISON: February 22, 2024 TECHNIQUE: Frontal view of the chest was obtained. FINDINGS: Sternotomy wires are present. Pacemaker generator projects over the left upper chest. There are 2 leads terminating in the right atrium and right ventricle. Lungs are clear and mildly hyperexpanded. Heart size is within normal limits. XR/XR chest 1V IMPRESSION: No acute disease. Electronically signed by: Benton Bowman MD 05/17/2025 11:49 AM EDT
[2025-05-17 11:16] VITALS: BP 148/87; PULSE 71; RESP 16; TEMP 37; O2SAT 99; BMI 32.9
--- NOTE | 2025-05-17 11:19 | ECG_ITS ---
Test Reason : CP Blood Pressure : */* mmHG Vent. Rate : 75 BPM Atrial Rate : 75 BPM P-R Int : 178 ms QRS Dur : 132 ms QT Int : 438 ms P-R-T Axes : -24 12 110 degrees QTcB Int : 489 ms AV dual-paced rhythm Abnormal ECG When compared with ECG of 18-Mar-2025 10:17, Rhythm change Referred By: Samson Mueller Electronically Signed By: SERGIO WIGGINS
--- NOTE | 2025-05-17 11:21 | ED_ITS ---
HPI - General Adult General Chief complaint: Chest Pain Stated complaint: dizziness, shakiness, heartburn Time Seen by Provider: 05/17/25 13:59 Source: patient and compressor mechanic Mode of arrival: ambulatory Limitations: language barrier History of Present Illness ED Provider: HPI narrative: The history that I obtained from the patient is different that is mentioned in triage note, patient is a 64-year-old male just saw his nurse practitioner Anastasiia Olson, patient was make an appointment for follow up study sounds like he may have a repeat echo in 6 months and he mentioned to the person who was make an appointment that he is having midsternal discomfort and he was told to come to the ER and because he did not feel well he came to the ER, he states he has a epigastric burning radiating up in his throat, he states it is consistent with acid burning and has been eating tomatoes, lasagna and mangoes. No chest pain no nausea or vomiting or diaphoresis associated with this. Notes from Cardiology today; 37 second run of NSVT. Confirmed with [employer] rep. Patient reports of mild lightheadedness at that time. EKG done today showing atrial sensed, ventricular paced rhythm, QTC 508 milliseconds, rate 74. Last echocardiogram 03/16/2025 showed EF 60-65%. Labs yesterday showed normal potassium and calcium. Will check magnesium today. Known history of nonobstructive LAD stenosis. Will check pharmacological nuclear stress test to evaluate for ischemia. Will review case with Dr. Salcedo, EP regarding upgrade to ICD. Initial plan was to increase carvedilol to 25 mg b.i.d. however he took that dose this morning and reported lightheadedness. Blood pressure low at 1022/62. Will adjust dose to 18.75 mg b.i.d.. Continue remote monitoring of pacemaker to assess for recurrent arrhythmia. Cardiology office visit 1 month, sooner if needed. Related Data Home Medications ?Medication ?Instructions ?Recorded ?Confirmed omeprazole 20 mg capsule,delayed 20 mg PO DAILY 05/15/25 release aspirin 81 mg tablet,delayed 81 mg PO DAILY 05/15/24 0 05/15/25 release buprenorphine 8 mg-naloxone 2 mg 1 film sublingual LJ LY 05/15/24 05/15/25 sublingual film (Suboxone) Previous Rx's ?Medication ?Instructions ?Recorded blood-glucose meter (FreeStyle #1 ea 07/19/20 Lite Meter kit) lancets 28 gauge (FreeStyle #100 ea 07/31/21 Lancets) pen needle, diabetic 32 gauge x #125 ea 10/28/21 (BD Ultra-Fine Gisella Pen Needle) blood sugar diagnostic (FreeStyle 1 strip miscellaneou s TID #100 11/05/22 Lite Strips) strips insulin degludec 200 unit/mL (3 76 unit (0.38 mL) subc ut BEDTIME 10/27/24 mL) subcutaneous pen (Tresiba #12 mL FlexTouch U-200 insulin) insulin lispro 100 unit/mL 12 - 14 unit (0.12 - 0.14 m L) 10/27/24 subcutaneous pen subcut TID #15 mL blood-glucose sensor (FreeStyle #2 ea 01/26/25 Yahaira 3 Plus Sensor device) blood-glucose,armhole baster jumpbasting,cont #1 ea 01/26/25 (FreeStyle Yahaira 3 Isabella) tirzepatide 7.5 mg/0.5 mL 7.5 mg (0.5 mL) subcut QWEEK #2 mL 01/26/25 subcutaneous pen injector (Joeunjaro) empagliflozin 25 mg tablet 25 mg PO QAM 30 days #30 ta bs 02/15/25 (Jardiance) cholecalciferol (vitamin D3) 50 50 mcg PO DAILY #30 ca ps 04/30/25 mcg (2,000 unit) capsule valsartan 80 mg tablet 80 mg PO DAILY #90 tabs 04/17 05/10 carvedilol 12.5 mg tablet 18.75 mg (1.5 x 12.5 mg) PO BID 30 05/15/25 days #90 tabs sucralfate 1 gram tablet (Carafate) 1 g PO Q6H 7 days #28 tabs 05/17/25 Allergies Allergy/AdvReac Type Severity Reaction Status Date / Time dulaglutide (From [facility]) AdvReac Mild Diarrhea Verified 05/17/25 11:16 Review of Systems 2 Constitutional: Constitutional: Reports as per [facility] Past Medical History Medical History Osteoporosis History of cardiomyopathy Prosthetic valve dysfunction BMI 39.0-39.9,adult Cardiomyopathy TAMARA (obstructive sleep apnea) Opioid dependence Hypogonadism Polyarthropathy Erectile dysfunction Nephrolithiasis Depression Esophageal reflux Arthritis Asthma Hyperlipidemia LDL goal <70 Obesity due to excess calories Essential hypertension Type 2 diabetes mellitus with diabetic neuropathy, unspecified Surgical History History of heart valve replacement Hx of umbilical hernia repair Family History Family History Father Heart disease CVD (cardiovascular disease) Mother DM2 (diabetes mellitus, type 2) Social History Social History Household Members: None Alcohol intake: current Alcohol intake frequency: does not drink Patient Tobacco Use Status: Former Tobacco user Advance Directives: No Advance Directives Information Provided: Yes Current occupational status: disabled Physical Exam ED Vital Signs: Vital Signs - 24 hr 05/17/25 16:00 05/17/25 16:10 Temperature 98.1 F 98.1 F Pulse Rate 73 73 Respiratory Rate 18 18 Blood Pressure 113/73 113/73 Pulse Oximetry 96 96 Oxygen Delivery Method Room Air Room Air BMI result Body Mass Index 32.9 Const Other: General: ?Appears of stated age ? ?uvula midline, moist for did not you do not think oral mucosa ? Neck: Supple, no LAD ? ?CV: Radial pulses +2 bilaterally pulses regular ? ?Resp: ?No wheezing rales rhonchi no stridor moving air well ? Abd: ?Bowel sounds are present, no tenderness no rebound no rigidity ? ?MSK: FROM, strength 5/5 all extremities, no lower extremity edema ? Skin: Warm, dry, intact, ? ?Neuro: ?Alert and oriented x3, moving upper and lower extremities symmetrically, no obvious facial asymmetry noted, cranial nerves 2-12 intact Course Course Course Narrative: RME: 64 year male presents to the ED for dizziness and heartburn and was informed by porcelain technician he needed a new pacemaker. Patient denies any slurred speech facial droop or paralysis of extremities. NIH score is 0. Labs EKG ordered, and chest xray 11:43pm: JOSEPHINE Laurent from cardiology informed me that patient had a 32nd V-tach episode with dizziness on the monitor pacemaker this past Wednesday. He states patient has a scheduled stress test next week. She states patient may need ICD pacemaker D fib placed per presently not in the plan. She states device needs to be checked, with [employer] reader. Medications Administered Discontinued Medications Generic Name Dose Route Start Last Admin Trade Name Nakul PRN Reason Stop Dose Admin Al Hydroxide/Mg Hydroxide 30 ml 05/17/25 14:23 05/17/25 14:33 Magnesium Hydrox/Alum Hydrox 30 Ml Oral.Susp PO 05/17/25 14:24 30 ml ONCE ONE Administration Lidocaine HCl 15 ml 05/17/25 14:23 05/17/25 14:33 Lidocaine Hcl Viscous 2 % 15 Ml Solution PO 05/17/25 14:24 15 ml ONCE ONE Administration Sucralfate 1 gm 05/17/25 14:23 05/17/25 14:33 Sucralfate Oral Suspension 1 Gm/10 Ml Oral.Susp PO 05/17/25 14:24 1 gm ONCE ONE Administration Medical Decision Making Medical Decision Making MDM Narrative: 2:30 PM 05/17/2025 (Dr. Luis Barth): Not sure who were performed the documentation in triage but patient was not sent to the ER but I did initially send a tiger text to Anastasiia his ELECTRIC POWER LINE REPAIRER thinking there are some specific requests, on 1 I spoke more to the patient that patient came to the ER on his own accord essentially stating that I have acid reflux and he has been eating well high acidic diet in the past few days, benign abdominal exam I did not feel he needs further imaging such as CT or ultrasound there was no indication that he has biliary pathology on exam or his blood work, he has a functional pacemaker atrial sensed ventricular paced, sounds like Dr. Salcedo EP we will be contact by Cardiology to see whether it can be converted to ICD as well because he had nonsustained runs of V-tach, patient has not had any syncopal episodes, his troponin was slightly elevated much less than prior, without any EKG changes to suspect underlying ACS, chest x-ray without pneumonia, pneumothorax or vascular congestion he takes omeprazole 2:35 PM 05/17/2025 (Dr. Luis Barth): Conversation with Cardiology: pt had a 37 sec run of NSVT on Wednesday. I saw him in office Wednesday. I did discuss possible ICD upgrade to his pacer. I ordered nuclear stress. He is likely anxious. I will have MA from office come do device check to see if he had more NSVT 3:38 PM 05/17/2025 (Dr. Luis Barth): Device check shows no new alerts Differential Diagnosis Differential Diagnoses: The differential diagnosis associated with the presentation includes Admission/Observation Consideration of admission/observation: Escalation of care including admission/observation considered Consult Healthcare Provider Management of the patient was discussed with: Phys Asst (Cardiology provider Anastasiia Olson) Lab Data MDM Lab Attestation statement: I reviewed the patient's lab results. 05/17/25 11:50 05/17/25 11:50 Labs: Lab Results 05/17/25 05/17/25 Range/Units 11:50 14:10 WBC 6.4 (4.8-10.8) X10*3/uL RBC 4.51 L (4.60-5.80) X10*6/uL Hgb 12.6 L (14.0-18.0) g/dl Hct 38.0 L (42.0-52.0) % MCV 84.3 (80.0-98.0) fL MCH 27.9 (27.0-33.0) pg MCHC 33.2 (31.0-36.0) g/dl RDW 13.2 (11.0-16.0) % Plt Count 192 (160-400) X10*3/uL MPV 9.3 L (9.4-12.4) fL Immature Gran % (Auto) 0.2 (0.0-0.4) % Neut % (Auto) 63.2 (45-73) % Lymph % (Auto) 25.9 (20-40) % Hudson % (Auto) 5.0 (2-11) % Eos % (Auto) 4.8 H (0-4) % Baso % (Auto) 0.9 (0-2) % Lymph # (Auto) 1.7 (1.2-4.9) X10*3/uL Hudson # (Auto) 0.3 (0.1-1.2) X10*3/uL Eos # (Auto) 0.3 (0.0-0.4) X10*3/uL Baso # (Auto) 0.1 (0.0-0.2) X10*3/uL Abs Immat Gran (auto) 0.01 (0.00-0.03) X10*3/uL Absolute Neuts (auto) 4.1 (2.0-8.3) x10*3/uL Absolute Nucleated RBC 0.000 (0.0-0.012) X10*3/uL Nucleated RBC % (auto) 0.0 (0.0-0.2) /100WBC Sodium 137 (135-145) mmol/L Potassium 4.5 (3.3-5.1) mmol/L Chloride 100 (96-108) mmol/L Carbon Dioxide 31 H (22-29) mmol/L Anion Gap 11 L (12-20) BUN 14 (9-16) mg/dL Creatinine 0.80 (0.5-1.4) mg/dL Estim Creat Clear Calc 105.9 Estimated GFR > 60 Random Glucose 150 H (60-115) mg/dL Calcium 9.2 D (8.4-10.2) mg/dL Total Bilirubin 0.4 (0.0-1.0) mg/dL AST 21 (5-37) U/L ALT 16 (0-40) U/L Alkaline Phosphatase 81 (39-117) U/L Troponin I High Sens 55.3 H D 55.0 H (<3.5-35.0) ng/L NT-Pro-B Natriuret Pep 111.0 (<300) pg/mL Total Protein 7.1 (6.5-8.0) g/dL Albumin 4.3 (3.5-5.0) g/dL Independent Interpretation I performed an independent interpretation of an: EKG (75 beats per minute atrial sensed ventricular paced rhythm) and Plain X-Ray (Pacemaker in place with lead placement, sternotomy wires in place,) Radiology Impression Discussion of test interpretation with radiology: I have reviewed the radiologist's reading. External Record Review External record reviewed: Outpatient record Discharge Plan Discharge Clinical Impression: Pacemaker reprogramming/check, Epigastric abdominal pain Patient Disposition: Home, Self-Care Additional Instructions: Please avoid spicy foods, fatty foods, would avoid any type of acidic juices, tomatoes, even apples, mangoes, coffee or tea especially on the empty stomach, in the morning I recommend oatmeal with water before having a cup of tea or coffee, Carafate 1 pill 20 minutes before any meals for the next 1 week, continue omeprazole, your porcelain technician is making plans to discuss your care with glass mold repairer to see whether you need pacemaker with implantable cardioverter-defibrillator as you had some rhythms they were abnormal during your pacemaker reviewed when you had a cardiology visit Your EKG today shows that the pacemaker is functional, your cardiac enzymes I am slightly elevated that is not abnormal for you, device check was performed and device is without any new alerts. Prescriptions: New sucralfate [Carafate] 1 gram tablet 1 g PO Q6H 7 Days Qty: 28 0RF No Action (DME) lancets [FreeStyle Lancets] 28 gauge misc See Rx Instructions .ROUTE .MEDSUPPLY Qty: 100 11RF Rx Instructions: As directed three time a day (DME) pen needle, diabetic [BD Ultra-Fine Gisella Pen Needle] 32 gauge x 5/32 needle See Rx Instructions .ROUTE .MEDSUPPLY Qty: 125 11RF Rx Instructions: As directed four times a day FreeStyle Lite Strips Strip 1 strip miscellaneous TID Qty: 100 11RF Jardiance 25 mg tablet 25 mg PO QAM 30 Days Qty: 30 4RF valsartan 80 mg tablet 80 mg PO DAILY Qty: 90 1RF Rx Instructions: dose decreased ( does not need refill yet) (DME) blood-glucose meter [FreeStyle Lite Meter] Kit See Rx Instructions .ROUTE .MEDSUPPLY Qty: 1 0RF Rx Instructions: As directed omeprazole 20 mg capsule,delayed release(DR/EC) 20 mg PO DAILY cholecalciferol (vitamin D3) 50 mcg (2,000 unit) capsule 50 mcg PO DAILY Qty: 30 4RF carvedilol 12.5 mg tablet 18.75 mg PO BID 30 Days Qty: 90 5RF Rx Instructions: must administer with a meal/food Dose adjusted due to lightheadedness - sent script yesterday for 25mg bid - change that to the 18.75mg bid - thank you buprenorphine-naloxone [Suboxone] 8-2 mg film 1 film sublingual DAILY aspirin 81 mg tablet,delayed release (DR/EC) 81 mg PO DAILY insulin lispro 100 unit/mL insulin pen 12 - 14 unit subcut TID Qty: 15 5RF Rx Instructions: use 15 minutes prior to meals insulin degludec [Tresiba FlexTouch U-200] 200 unit/mL (3 mL) insulin pen 76 unit subcut BEDTIME Qty: 12 5RF Mounjaro 7.5 mg/0.5 mL pen injector 7.5 mg subcut QWEEK Qty: 2 3RF (DME) FreeStyle Yahaira 3 Isabella Misc See Rx Instructions .ROUTE .MEDSUPPLY Qty: 1 0RF Rx Instructions: Use daily to monitor blood glucose levels continuously. (DME) FreeStyle Yahaira 3 Plus Sensor Device See Rx Instructions .ROUTE .MEDSUPPLY Qty: 2 11RF Rx Instructions: Apply 1 new sensor every 15 days as directed to monitor blood glucose continuously. Interventions: ED Discharge Assessment Last Done: 05/17/25 16:10 Discharge Date/Time: 05/17/25 16:10 Print Language: Macedonian
[2025-05-17 11:57] LABS: MANUAL DIFF FLAG NO
[2025-05-17 12:05] LABS: Hematocrit 38.0 % (42.0-52.0); Hemoglobin 12.6 g/dl (14.0-18.0); Imm Gran Abs Auto 0.01 X10*3/uL (0.00-0.03); Imm Gran Pct Auto 0.2 % (0.0-0.4); Lymphocytes Absolute Auto 1.7 X10*3/uL (1.2-4.9); Mean Corpuscular HGB Conc 33.2 g/dl (31.0-36.0); Mean Corpuscular Hemoglobin 27.9 pg (27.0-33.0); Mean Corpuscular Volume 84.3 fL (80.0-98.0); NRBC Abs Auto 0.000 X10*3/uL (0.0-0.012); NRBC Pct Auto 0.0 /100WBC (0.0-0.2); Platelet Count 192 X10*3/uL (160-400); Red Blood Count 4.51 X10*6/uL (4.60-5.80); White Blood Count 6.4 X10*3/uL (4.8-10.8)
[2025-05-17 12:16] LABS: Alanine Aminotransferase 16 U/L (0-40); Albumin Level 4.3 g/dL (3.5-5.0); Alkaline Phosphatase 81 U/L (39-117); Anion Gap 11 (12-20); Aspartate Amino Transferase 21 U/L (5-37); Blood Urea Nitrogen 14 mg/dL (9-16); Calcium 9.2 mg/dL (8.4-10.2); Carbon Dioxide 31 mmol/L (22-29); Chloride 100 mmol/L (96-108); Creatinine Clr Calc Pharmacy 105.9; Estimated Glomerular Filt Rate > 60; Potassium 4.5 mmol/L (3.3-5.1); Sodium 137 mmol/L (135-145); Total Protein 7.1 g/dL (6.5-8.0)
[2025-05-17 12:19] LABS: NT Pro B Type Natriuretic Pept 111.0 pg/mL (<300); Troponin-I High Sensitivity 55.3 ng/L (<3.5-35.0)
[2025-05-17] MEDS: Magnesium Hydrox/Alum Hydrox 30 ML ORAL.SUSP PO (14:33)
[2025-05-17] MEDS: Sucralfate Oral Suspension 1 GM/10 ML ORAL.SUSP PO (14:33)
[2025-05-17] MEDS: Lidocaine HCl Viscous 2 % 15 ML SOLUTION PO (14:33)
[2025-05-17 14:47] LABS: Troponin-I High Sensitivity 55.0 ng/L (<3.5-35.0)
--- OUTSIDE RECORDS SUMMARY | 2025-05-17 15:36 | XMS_ITS | Encounter Summary ---
Author Organization [employer] Address [address] [place] [address] [address] [place] [address] Care Team Providers Care Product Development Assistant Name Role Phone Galo Fang MD Primary Care Provide r Reason for Visit * Reason Onset Date Comments Med Refill TP 01/02/2023 Encounter Details Date Type Department Care Team (Late st Contact Info) Description 01/02/2023 Telephone [facility] MEDICINE [address] [place] [address] [phone] Carroll Roberts MD [address] [place], [place] [phone] Med Refill; TP Social History Tobacco Use [...] [facility] [address] [place] [address] Carroll Roberts MD [address] [place] [address] 07/10/2025 10:00 AM EST Office Visit [facility] MEDICINE [address] [place] [address] Galo Fang MD [address] [place] [address] 09/21/2025 11:00 AM EST Office Visit [facility] OPTOMETRY [address] [place] [address] Pat Bates, OD [address] [place] [address] documented as of this encounter Visit Diagnoses Diagnosis Uncomplicated opioid dependence (CMS/HCC) (HCC) documented in this encounter Care Teams Product Development Assistant Relationship Specialty Start Date End Date Galo Fang MD [address] [place] [phone] PCP - General Internal Medicine 04/04/14 documented as of this encounter
--- OUTSIDE RECORDS SUMMARY | 2025-05-17 15:36 | XMS_ITS | Encounter Summary ---
Author Organization [employer] Address [address] [facility] [address] [place] [address] Care Team Providers Care Coronary Care Unit Nurse Name Role Phone Galo Fang MD Primary Care Provide r Encounter Details Date Type Department Care Team ([facility] st Contact Info) Description 05/14/2025 Orders Only [facility] MED [facility] PEDS [address] [place], [place] [phone] Susan Arriaga MD [address] [place], [place] [phone] Social History Tobacco Use Types Packs/Day Years [...] Description 06/22/2025 9:00 AM EST Office Visit [facility] MEDICINE [address] [place] [address] Carroll Roberts MD [address] [place] [address] 07/10/2025 10:00 AM EST Office Visit [facility] MEDICINE [address] [place] [address] Galo Fang MD [address] [place] [address] 09/21/2025 11:00 AM EST Office Visit [facility] OPTOMETRY [address] [place] [address] Paulo, Pat, OD [address] [place] [address] documented as of this encounter Goals Goal [...] EDT) 05/14/2025 12:4 0 PM EDT Narrative [facility] IMAGING - 05/14/2025 1:07 PM EDT [place] [address] Ultrasound Report Signed Patient: Nemesio Brown MR#: [id number] : 1960 Acct:[id number] Age/Sex: 64 / M ADM Date: 05/14/25 Loc: HO.ED Attending Dr: Ordering Physician: Amee Acosta Date of Service: 05/14/25 Procedure(s): US venous duplex LE LT Accession Number(s): [id number] cc: Galo Prajapati MD; Amee Acosta Reason [...] 05/14/25 1304 DD/ 1240 TD/TT: 05/14/25 1248 Factory Supervisor: Procedure Note Donotuseinterpreter, Image - 05/14/[address] [address] Ultrasound Report Signed Patient: Radha BrownarMR#: [id number] : 1960Acct:[id number] Age/Sex: 64 / MADM Date: 05/14/25 Loc: .ED Attending Dr: Ordering Physician: Amee Acosta Date of Service: 05/14/25 Procedure(s): US venous duplex LE LT Accession Number(s): [id number] cc: Galo Prajapati MD; Amee Acosta Reason [...] 05/14/25 1304 DD/ 1240 TD/TT: 05/14/25 1248 Factory Supervisor: [facility] External Provider CV VASC ULAR PROCEDURES Final Result [facility] [address] [place] [address] * NT-proBNP (05/14/2025 12:28 PM EDT) NT-proBNP 95.7 <300 pg/mL [facility] Comment:Reference Range:Age Group (years) NT-proBNP (pg/ml) InterpretationAll <300 Negative: HF unlikelyFor patients presenting to the ED with clinical suspicion ofnew onset or worsening HF, see below:18 to <50 >299.9 to <450.0 Grayzone: [id number] to 75 >299.9 to <900.0 other causes of>75 >299.9 to <1800.0 NT-proBNP [id number] to <50 >449.9 Positive: HF ozryyd62-98 >899.9>75 >1799.9Note: Elevated NT-proBNP levels should be interpreted inthe context of other clinical information. 05/14/2025 12:2 8 PM EDT 05/14/2025 1:56 PM EDT Generic External Data Provider LAB BLOOD ORDERAB LES Final Result [facility] [address] [place] [address] [phone] * (ABNORMAL) Comprehensive Metabolic Panel (05/14/2025 12:28 PM EDT) Sodium 137 135 - 145 mmol/L [facility] Potassium 4.6 3.3 - 5.1 mmol/L [facility] Chloride 103 96 - 108 mmol/L [facility] Carbon Dioxide 29 22 - 29 mmol/L [facility] Anion Gap 10(L) 12 - 20 [facility] Urea Nitrogen (BUN) 22(H) 9 - 16 mg/dL [facility] Creatinine, Serum 0.86 0.5 - 1.4 mg/dL [facility] Creatinine Clr Calc Pharmacy 97.0 [facility] Comment:eGFR (calculated fro m the MDRD study equation) and eCrCl(calculated from the Cockcroft-Gault equation) are based ondifferent parameters and may not yield comparable results.If eCrCl result is absurd, please check patient'sheight/weight. Estimated Glomerular Filt Rate >60 [facility] Comment:Chronic Kidney Disea se: Estimated GFR < 60 mL/min/1.78c4Ptsnwy Kidney Disease: Estimated GFR < 15 mL/min/1.73m2 Glucose 188(H) 60 - 115 mg/dL [facility] Calcium 8.6 8.4 - 10.2 mg/dL [facility] Bilirubin, Total 0.4 0.0 - 1.0 mg/dL [facility] Aspartate Amino Transferase 23 5 - 37 U/L [facility] Alanine Aminotransferase 17 0 - 40 U/L [facility] Total Protein 7.1 6.5 - 8.0 g/dL [facility] Albumin Level 4.3 3.5 - 5.0 g/dL [facility] Alkaline Phosphatase 75 39 - 117 U/L [facility] 05/14/2025 12:2 8 PM EDT 05/14/2025 12:32 PM EDT us Generic External Data Provider LAB BLOOD ORDERAB LES Final Result [facility] [address] [place] [phone] * (ABNORMAL) Prothrombin Time-INR (05/14/2025 12:28 PM EDT) Prothrombin Time 12.7(H) 10.9 - 12.4 SEC [facility] INTERNATIONAL NORM RATIO 1.1 0.9 - 1.1 [facility] Comment:INTERNATIONAL NORMAL IZED RATIO (INR) REFERENCE [...] Provider LAB BLOOD ORDERAB LES Final Result [facility] [address] [place] [address] [phone] * (ABNORMAL) CBC auto differential (05/14/2025 12:28 PM EDT) White Blood Count 6.6 4.8 - 10.8 X10*3/uL [facility] Red Blood Count 4.47(L) 4.60 - 5.80 X10*6/uL [facility] Hemoglobin 12.5(L) 14.0 - 18.0 g/dl [facility] Hematocrit 38.2(L) 42.0 - 52.0 % [facility] Mean Corpuscular Volume 85.5 80.0 - 98.0 fL [facility] Mean Corpuscular Hemoglobin 28.0 27.0 - 33.0 pg [facility] Mean Corpuscular HGB Conc 32.7 31.0 - 36.0 g/dl [facility] Red Cell Distribution Width 13.2 11.0 - 16.0 % [facility] Platelet Count 185 160 - 400 X10*3/uL [facility] Mean Platelet Volume 9.2(L) 9.4 - 12.4 fL [facility] Neutrophils Percent Auto 59.3 45 - 73 % [facility] Imm Gran Pct Auto 0.2 0.0 - 0.4 % [facility] Lymphocytes Percent Auto 28.7 20 - 40 % [facility] Monocytes Percent Auto 5.6 2 - 11 % [facility] Eosinophils Percent Auto 5.3(H) 0 - 4 % [facility] Basophils Percent Auto 0.9 0 - 2 % [facility] NRBC Pct Auto 0.0 0.0 - 0.2 /100WBC [facility] Neutrophils Absolute Auto 3.9 2.0 - 8.3 x10*3/uL [facility] Imm Gran Abs Auto 0.01 0.00 - 0.03 X10*3/uL [facility] Lymphocytes Absolute Auto 1.9 1.2 - 4.9 X10*3/uL [facility] Monocytes Absolute Auto 0.4 0.1 - 1.2 X10*3/uL [facility] Eosinophils Absolute Auto 0.4 0.0 - 0.4 X10*3/uL [facility] Basophils Absolute Auto 0.1 0.0 - 0.2 X10*3/uL [facility] NRBC Abs Auto 0.000 0.0 - 0.012 X10*3/uL [facility] 05/14/2025 12:2 8 PM EDT 05/14/2025 12:32 PM EDT us Generic External Data Provider LAB BLOOD ORDERAB LES Final Result [facility] [address] [place] [phone] * D Dimer High Sensitivity (05/14/2025 9:43 AM EDT) D Dimer High Sensitivity 278 NG/ML [facility] Comment:Results of Homero sawant lled to [...] MD LAB BLOOD ORDERABLES Final Re sult [facility] [address] [place] [address] [phone] documented in this encounter Visit Diagnoses Not on filedocumented in this encounter Additional Health Concerns Assessment Noted Time PHQ-9 Depression Total Score: 0 04/10/20 8:59 AM EDT documented as of this encounter Care Teams Coronary Care Unit Nurse Relationship Specialty Start Date End Date Galo Fang MD [address] [place] [phone] PCP - General Internal Medicine 04/04/14 documented as of this encounter
--- OUTSIDE RECORDS SUMMARY | 2025-05-17 15:36 | XMS_ITS | Patient Health Record ---
Author Organization [facility] Address [address] [place] [address] Care Team Providers Care Ultrasound Supervisor Name Role Phone Ahmet Abbasi Unavailable [phone] Reason For Referral No Information Plan Of Treatment No Information
--- OUTSIDE RECORDS SUMMARY | 2025-05-17 15:36 | XMS_ITS | Encounter Summary ---
Author Organization [employer] Address [address] [facility] 7t [place] [address] Care Team Providers Care Energy Management Specialist Name Role Phone Galo Fang MD Primary Care Provide r Reason for Visit * Reason Comments Med Refill Encounter Details Date Type Department Care Team ([facility] st Contact Info) Description 09/08/2024 Refill [facility] [address] [place] [address] Carroll Roberts MD [address] [place], [place] [phone] Uncomplicated opioid dependence (CMS/HCC) Social History Tobacco [...] Upcoming Encounters Date Type Department Care Team ([facility] st Contact Info) Description 06/22/2025 9:00 AM EST Office Visit [facility] [address] [place] [address] Carroll Roberts MD 230 [place] [address] 07/10/2025 10:00 AM EST Office Visit [facility] [address] [place] [address] Galo Fang MD 230 [place] [address] 09/21/2025 11:00 AM EST Office Visit [facility] [address] [place] [address] Pat Bates, OD 230 [place] [address] documented as of this encounter Visit Diagnoses Diagnosis Uncomplicated opioid dependence (CMS/HCC) (HCC) documented in this encounter Additional Health Concerns Assessment Noted Time PHQ-9 Depression Total Score: 0 05/26/20 24 9:56 AM EDT documented as of this encounter Care Teams Energy Management Specialist Relationship Specialty Start Date End Date Galo Fang MD 230 [place] [address] PCP - General Internal Medicine 04/04/14 documented as of this encounter
--- OUTSIDE RECORDS SUMMARY | 2025-05-17 15:36 | XMS_ITS | Encounter Summary ---
Author Organization [employer] Address [address] [place] [address] [address] [place] [address] Care Team Providers Care Auto Wash Buffer Name Role Phone Galo Fang MD Primary Care Provide r Encounter Details Date Type Department Care Team (Late st Contact Info) Description 12/23/2022 Abstract [facility] [address] [place] [address] Galo Fang MD [address] [place] [address] [phone] Social History Tobacco Use Types Packs/Day Years [...] 06/22/2025 9:00 AM EST Office Visit [facility] [address] [place] [phone] Carroll Roberts MD [address] [place] [address] 07/10/2025 10:00 AM EST Office Visit [facility] [address] [place] [address] Galo Fang MD [address] [place] [address] [phone] 09/21/2025 11:00 AM EST Office Visit [facility] [address] [place] [address] Pat Bates, OD [address] [place] [address] documented as of this encounter Procedures Procedure Name Priority Date/Time Associated Diagnosis Comments COLONOSCOPY Routine 07/29/2018 documented in this encounter Results * Hm Colonoscopy (07/29/2018) Colonoscopy Normal Normal 07/29/2018 Narrative Georgia Rubio - 07/29/2018 1:52 PM EST Recommended 10 year follow up Historical Provider HEALTH MAINTENANCE Final Result documented in this encounter Visit Diagnoses Not on filedocumented in this encounter Care Teams Auto Wash Buffer Relationship Specialty Start Date End Date Galo Fang MD 230 [place] [address] PCP - General Internal Medicine 04/04/14 documented as of this encounter
--- OUTSIDE RECORDS SUMMARY | 2025-05-17 15:36 | XMS_ITS | Encounter Summary ---
Author Organization [employer] Address [address] [place] [address] [place], [place] [address] Care Team Providers Care Associate Professor Of Kinesiology Name Role Phone Galo Fang MD Primary Care Provide r Reason for Visit * Reason Comments Med Refill Encounter Details Date Type Department Care Team ([facility] Contact Info) Description 06/22/2023 Refill [facility] [address] [place] [phone] Carroll Roberts MD [address] [place] [address] [phone] Uncomplicated opioid dependence (CMS/HCC) Social History Tobacco [...] Description 06/22/2025 9:00 AM EST Office Visit [facility] [address] [place] [phone] Carroll Roberts MD [address] [place] [phone] 07/10/2025 10:00 AM EST Office Visit [facility] [address] [place] [address] Galo Fang MD [address] [place] [address] [phone] 09/21/2025 11:00 AM EST Office Visit [facility] [address] [place], [place] [phone] Pat Bates, OD 230 [place], [place] [phone] documented as of this encounter Visit Diagnoses Diagnosis Uncomplicated opioid dependence (CMS/HCC) (HCC) documented in this encounter Care Teams Associate Professor Of Kinesiology Relationship Specialty Start Date End Date Galo Fang MD 230 [place], [place] [phone] PCP - General Internal Medicine 04/04/14 documented as of this encounter
--- OUTSIDE RECORDS SUMMARY | 2025-05-17 15:36 | XMS_ITS | Encounter Summary ---
Author Organization [employer] Address [address] [place] [address] 7 [place] [address] Care Team Providers Care Program Director Cable Television Name Role Phone Galo Fang MD Primary Care Provide r Encounter Details Date Type Department Care Team (Late Contact Info) Description 06/14/2023 Abstract [facility] [address] [place] [address] Galo Fang MD [address] [place] [address] [phone] Social History Tobacco Use Types Packs/Day Years [...] Description 06/22/2025 9:00 AM EST Office Visit [facility] [address] [place] [phone] Carroll Roberts MD [address] [place] [address] [phone] 07/10/2025 10:00 AM EST Office Visit [facility] [address] [place] [address] Galo Fang MD [address] [place] [address] [phone] 09/21/2025 11:00 AM EST Office Visit [facility] [address] [place] [address] Pat Bates, OD 230 [place] [address] documented as of this encounter Procedures Procedure [...] on filedocumented in this encounter Care Teams Program Director [employer] Television Relationship Specialty Start Date End Date Galo Fang MD 230 [place] [address] PCP - General Internal Medicine 04/04/14 documented as of this encounter
--- OUTSIDE RECORDS SUMMARY | 2025-05-17 15:36 | XMS_ITS | Encounter Summary ---
Author Organization [employer] Address [address] [facility] 7t [place] [address] Care Team Providers Care Acquisition Cost Estimator Name Role Phone Galo Fang MD Primary Care Provide r Reason for Visit * Reason Onset Date Comments CRITICAL LAB 05/14/2025 Encounter Details Date Type Department Care Team ([facility] st Contact Info) Description 05/14/2025 Telephone [facility] [address] [place] [address] Galo Fang MD [address] [place] [address] CRITICAL LAB Social History Tobacco Use Types [...] STAT CTA chest Called pt via BLS [id number] Quan, explained to pt that labs came back that show high likelihood of blood clot and that provider recommends that he go to the ER now for STAT imagining to investigate thisfurther. Explained will fax over result and call [facility]. Pt verbalized understanding, plans to go to [facility] as soon as possible, no further questions. Called [facility], spoke with Zaida, gave expect, faxed over office note, labs, med list, confirmation received. * Telephone Encounter - Monae Moreno RN - 05/14/2025 10:42 AM EDT TC incoming from [facility] with [facility] with critical lab: Pt D-Dimer [id number] Vick[address] GAFFNEY aware Will route to ordering provider and walk in nurses to advise. documented in this encounter Plan of Treatment Upcoming Encounters Date Type Department Care Team (Late st Contact Info) Description 06/22/2025 9:00 AM EST Office Visit [facility] [address] [place] [address] Carroll Roberts MD [address] [place] [address] 07/10/2025 10:00 AM EST Office Visit [facility] [address] [place] [address] Galo Fang MD [address] [place] [address] 09/21/2025 11:00 AM EST Office Visit [facility] [address] [place] [address] Pat Bates, OD 230 [place] [address] documented as of this encounter Goals Goal [...] documented as of this encounter Care Teams Acquisition Cost Estimator Relationship Specialty Start Date End Date Galo Fang MD [address] [place] [address] PCP - General Internal Medicine 04/04/14 documented as of this encounter
--- OUTSIDE RECORDS SUMMARY | 2025-05-17 15:36 | XMS_ITS | Encounter Summary ---
Author Organization [employer] Address [address] [place] [address] [place] [address] Care Team Providers Care Forestry Aid Technician Name Role Phone Gaol Fang MD Primary Care Provide r Reason for Visit * Reason Comments Med Refill Encounter Details Date Type Department Care Team (Late Contact Info) Description 11/12/2022 Refill [facility] [address] [place] [address] Galo Fang MD [address] [place] [phone] Gastroesophageal reflux disease, unspecified whether esophagitis present [...] 9:00 AM EST Office Visit [facility] [address] [place] [address] Carroll Roberts MD [address] [place] [phone] 07/10/2025 10:00 AM EST Office Visit [facility] [address] [place] [address] Galo Fang MD [address] [place], [place] [phone] 09/21/2025 11:00 AM EST Office Visit [facility] [address] [place], [place] [phone] Pat Bates, OD 230 [place] [address] documented as of this encounter Visit Diagnoses Diagnosis Gastroesophageal reflux disease, unspecified whether esophagitis present documented in this encounter Care Teams Forestry Aid Technician Relationship Specialty Start Date End Date Galo Fang MD 230 [place], [place] [phone] PCP - General Internal Medicine 04/04/14 documented as of this encounter
--- OUTSIDE RECORDS SUMMARY | 2025-05-17 15:36 | XMS_ITS | Encounter Summary ---
Author Organization [employer] Address [address] [facility] 7t [place] [address] Care Team Providers Care Filter Assembler Name Role Phone Galo Fang MD Primary Care Provide r Reason for Visit * Reason Comments Med Refill Encounter Details Date Type Department Care Team ([facility] st Contact Info) Description 10/08/2023 Refill [facility] [address] [place] [address] Carroll Roberts MD 230 [place], [place] [phone] Uncomplicated opioid dependence (CMS/HCC) Social History Tobacco [...] EST Office Visit [facility] [address] [place] [address] Carroll Roberts MD [address] [place] [address] 07/10/2025 10:00 AM EST Office Visit [facility] [address] [place] [address] Galo Fang MD [address] [place] [address] 09/21/2025 11:00 AM EST Office Visit [facility] [address] [place] [address] PauloPat womack, OD 230 [place] [address] documented as of this encounter Visit Diagnoses Diagnosis Uncomplicated opioid dependence (CMS/HCC) (HCC) documented in this encounter Additional Health Concerns Assessment Noted Time PHQ-9 Depression Total Score: 0 07/01/20 23 1:10 PM EST documented as of this encounter Care Teams Filter Assembler Relationship Specialty Start Date End Date Galo Fang MD [address] [place] [phone] PCP - General Internal Medicine 04/04/14 documented as of this encounter
--- OUTSIDE RECORDS SUMMARY | 2025-05-17 15:36 | XMS_ITS | Encounter Summary ---
Author Organization [employer] Address [address] [facility] 7t [place] [address] Care Team Providers Care Motor Room Controller Name Role Phone Galo Fang MD Primary Care Provide r Reason for Visit * Reason Onset Date Comments Med Refill 12/29/2024 Encounter Details Date Type Department Care Team (Late st Contact Info) Description 12/29/2024 Refill [facility] 230 [place] [address] 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 RN Uncomplicated opioid dependence (CMS/HCC) [...] t he electric, gas, oil or water [employer] threatened to shut off services in your [...] Description 06/22/2025 9:00 AM EST Office Visit [facility] [address] [place] [address] Carroll Roberts MD [address] [place] [address] 07/10/2025 10:00 AM EST Office Visit [facility] [address] [place] [address] Galo Fang MD [address] [place] [address] 09/21/2025 11:00 AM EST Office Visit [facility] [address] [place] [address] Pat Bates, OD 230 [place] [address] documented as of this encounter Goals Goal [...] documented as of this encounter Care Teams Motor Room Controller Relationship Specialty Start Date End Date Galo Fang MD 230 [place] [address] PCP - General Internal Medicine 04/04/14 documented as of this encounter
--- OUTSIDE RECORDS SUMMARY | 2025-05-17 15:36 | XMS_ITS | Encounter Summary ---
Author Organization [employer] Address [address] [place] [address] [place], [place] [address] Care Team Providers Care Public Utilities Sales Representative Name Role Phone Galo Fang MD Primary Care Provide r Reason for Visit * Reason Comments Med Refill Encounter Details Date Type Department Care Team (Late Contact Info) Description 11/07/2022 Refill [facility] [address] [place] [phone] Carroll Roberts MD [address] [place] [address] [phone] Uncomplicated opioid dependence (CMS/HCC) Social History Tobacco [...] AM EST Office Visit [facility] [address] [place] [address] Carroll Roberts MD [address] [place] [address] [phone] 07/10/2025 10:00 AM EST Office Visit [facility] [address] [place] [address] Galo Fang MD [address] [place] [phone] 09/21/2025 11:00 AM EST Office Visit [facility] [address] [place], [place] [phone] Pat Bates, OD 230 [place] [address] documented as of this encounter Visit Diagnoses Diagnosis Uncomplicated opioid dependence (CMS/HCC) (HCC) documented in this encounter Care Teams Public Utilities Sales Representative Relationship Specialty Start Date End Date Galo Fang MD [address] [place], [place] [phone] PCP - General Internal Medicine 04/04/14 documented as of this encounter
--- OUTSIDE RECORDS SUMMARY | 2025-05-17 15:36 | XMS_ITS | Encounter Summary ---
Author Organization [email or web address] Address [address] [facility] 7t [place] [address] Care Team Providers Care Service Desk Director Name Role Phone Galo Fang MD Primary Care Provide r Encounter Details Date Type Department Care Team ([facility] st Contact Info) Description 05/15/2025 Results Follow-Up [facility] [address] [place], [place] [phone] Susan Arriaga MD [address] [place], [place] [phone] D Dimer High Sensitivity Social History Tobacco [...] Visit [facility] [address] [place] [address] Carroll Roberts MD [address] [place] [address] 07/10/2025 10:00 AM EST Office Visit [facility] [address] [place] [address] Galo Fang MD [address] [place] [address] 09/21/2025 11:00 AM EST Office Visit [facility] OPT[facility] [address] [place] [address] Pat Bates, OD 230 [place] [address] documented as of this encounter Goals Goal [...] documented as of this encounter Care Teams Service Desk Director Relationship Specialty Start Date End Date Galo Fang MD [address] [place] [address] PCP - General Internal Medicine 04/04/14 documented as of this encounter
--- OUTSIDE RECORDS SUMMARY | 2025-05-17 15:36 | XMS_ITS | Encounter Summary ---
Author Organization [employer] Address [address] [place] [address] 7 [place] [address] Care Team Providers Care Landscape Architecture Teacher Name Role Phone Galo Fang MD Primary Care Provide r Reason for Visit * Reason Comments Med Refill Encounter Details Date Type Department Care Team (Late Contact Info) Description 11/03/2022 Refill [facility] [address] [place] [phone] Jess Barriga MD [address] [place] [address] Mild intermittent asthma without complication Social History [...] 9:00 AM EST Office Visit [facility] [address] [place] [address] Carroll Roberts MD [address] [place] [address] [phone] 07/10/2025 10:00 AM EST Office Visit [facility] [address] [place] [address] Galo Fang MD [address] [place] [address] [phone] 09/21/2025 11:00 AM EST Office Visit [facility] OPTOM[facility] [address] [place], [place] [phone] Pat aBtes, OD 230 [place], [place] [phone] documented as of this encounter Visit Diagnoses Diagnosis Mild intermittent asthma without complication documented in this encounter Care Teams Landscape Architecture Teacher Relationship Specialty Start Date End Date Galo Fang MD 230 [place], [place] [phone] PCP - General Internal Medicine 04/04/14 documented as of this encounter
--- OUTSIDE RECORDS SUMMARY | 2025-05-17 15:36 | XMS_ITS | Encounter Summary ---
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 Name Role Phone Galo Fang MD Primary Care Provide r Encounter Details Date Type Department Care Team ([facility] Contact Info) Description 05/15/2025 Orders Only GENERIC EXTERNAL DATA DEPARTMENT Provider, [...] Description 06/22/2025 9:00 AM EST Office Visit [facility] [address] [place] [address] Carroll Roberts MD [address] [place] [address] 07/10/2025 10:00 AM EST Office Visit [facility] [address] [place] [address] Galo Fang MD [address] [place] [address] 09/21/2025 11:00 AM EST Office Visit [facility] [address] [place] [address] Pat Bates, OD [address] [place] [address] documented as of this encounter Goals Goal Patient Goal Type Associated Problems Recent Progress Patient-Stated? Author Increase coping skills to promote long-term recovery and improve ability to perform daily activities General On track( 025 9:26 AM EDT) Frieda Trevino RN documented as of this encounter Procedures Procedure Name Priority Date/Time Associated Diagnosis Comments MAGNESIUM Routine 05/15/2025 3:46 PM EDT documented in this encounter Results * Magnesium (05/15/2025 3:46 PM EDT) Magnesium 2.2 1.6 - 2.6 mg/dL [facility] 05/15/2025 3:46 PM EDT 05/15/2025 3:46 PM EDT us Generic External Data Provider LAB BLOOD ORDERAB LES Final Result [facility] [address] [place] [address] [phone] documented in this encounter Visit Diagnoses Not on filedocumented in this encounter Additional Health Concerns Assessment Noted Time PHQ-9 Depression Total Score: 0 04/10/20 25 8:59 AM EDT documented as of this encounter Care Teams Food Processing Plant Manager Relationship Specialty Start Date End Date Galo Fang MD [address] [place] [address] PCP - General Internal Medicine 04/04/14 documented as of this encounter
--- OUTSIDE RECORDS SUMMARY | 2025-05-17 15:36 | XMS_ITS | Clinical Summary ---
Author Organization [employer] Address [address] [facility] [address] [place] [address] Care Team Providers Care Licensed Loan Officer Name Role Phone Galo Fagn MD Primary Care Provide r Allergies Active Allergy Reactions Criticality Noted Date Comments Lisinopril 06/29/2017 Other reaction(s): itchy throat Medications albuterol (2.5 MG/3ML) 0.083% nebulizer solution Inhale 3 mL every 8 (eight) hours. 02/15/20 21 Active valsartan (Diovan) 80 MG tablet Take 80 mg by mouth 2 times daily. 03/22/20 23 Active Continuous Blood Gluc Sensor (FreeStyle Yahaira 2 Sensor) misc USE DIRECTED EVERY 2 WEEKS 03/30/20 23 Active Continuous Blood Gluc Extrusion Die Coordinator (FreeStyle Yahaira 2 [place]) device USE DIRECTED 01/05/20 23 Active FREESTYLE LITE test strip TEST 3 TIMES A DAY DIRECTED 03/19/20 23 Active naloxone (Narcan) 4 mg/0.1 mL nasal spray ADMINISTER 1 SPRAY INTO ONE NOSTRIL. CALL 911. REPEAT AFTER 2-3 MIN IF NO OR MINIMAL RESPONSE 2 each 1 12/23/19 24 Active insulin lispro (HumaLOG) 100 UNIT/ML injection INJECT 14 UNITS SUBCUTANEOUSLY BEFORE BREAKFAST, 16 UNITS BEFORE LUNCH, AND 18 UNITS BEFORE SUPPER 10 mL 6 04/20/20 24 Active Diclofenac Sodium 1 % gel APPLY 2 GRAMS TOPICALLY 4 TIMES A DAY 100 g 2 09/14/19 25 Active acetaminophen (Tylenol) 325 MG tabletIndication s:Chronic midline low back pain without sciatica TAKE 2 TABLETS BY MOUTH EVERY 8 HOURS NEEDED FOR PAIN 90 tablet 1 10/27/19 25 Active docusate sodium (Colace) 100 MG capsuleIndicatio ns:Constipation, unspecified constipation type TAKE 1 TO 2 CAPSULES BY MOUTH EVERY DAY AT BEDTIME NEEDED FOR CONSTIPATION 180 capsule 1 11/08/19 25 Active cetirizine (ZyrTEC) 10 MG tabletIndication s:Seasonal allergies TAKE 1 TABLET BY MOUTH EVERY DAY IN THE MORNING 90 tablet 1 11/16/19 25 Active sennosides (Senna-Time) 8.6 MG tabletIndication s:Constipation, unspecified constipation type TAKE 1-2 TABLET(S) BY MOUTH DAILY AT BEDTIME NEEDED FOR CONSTIPATION 180 tablet 3 11/29/19 25 Active baclofen (Lioresal) 10 MG tablet TAKE 1/2 TABLET BY MOUTH 3 TIMES DAILY 45 tablet 02/16/20 25 Active Jardiance 25 MG Take 25 mg by mouth in the morning. 02/16/20 25 Active Mounjaro 7.5 MG/0.5ML solution auto-injector Inject 0.5 mL under the skin every 7 (seven) days. 03/01/20 25 Active sildenafil (Viagra) 100 MG tabletIndication s:Erectile dysfunction due to diseases classified elsewhere Take 1 tablet (100 mg) by mouth if needed each day for erectile dysfunction. 10 tablet 1 03/13/20 25 Active atorvastatin (Lipitor) 20 MG tabletIndication s:Type 2 diabetes mellitus with diabetic polyneuropathy, with long-term current use of insulin (HCC) Take 1 tablet (20 mg) by mouth Once per day. 30 tablet 6 03/13/20 25 Active polyethylene glycol, PEG, 3350 (GaviLAX) 17 GM/SCOOP powder TAKE (17G) BY ORAL ROUTE EVERY DAY MIXED WITH 8 OZ. WATER, JUICE, COFFEE OR TEA 510 g 2 03/16/20 25 Active Buprenorphine HCl-Naloxone HCl (Suboxone) 8-2 MG SL filmIndications: Opioid use disorder in remission Place 1 Film under the tongue Once per day. 28 Film 2 03/24/20 25 025 Active buprenorphine-na loxone (Suboxone) 2-0.5 MG per sublingual filmIndications: Opioid use disorder in remission Place 1 Film under the tongue Once per day. 28 Film 2 03/24/20 25 025 Active aspirin 81 MG EC tablet Take 1 tablet by mouth Once per day. Active Tresiba FlexTouch 200 UNIT/ML injection INJECT 80 UNITS AT BEDTIME 9 mL 3 04/12/20 25 Active omeprazole (PriLOSEC) [address] Barclay ns:Gastroesophag eal reflux disease without esophagitis TAKE 1 CAPSULE BY MOUTH EVERY DAY IN THE MORNING 90 capsule 1 04/17/20 25 Active Active Problems Problem Noted Date Diagnosed Date Hospital discharge follow-up 04/10/2025 Assessment & Plan (04/10/2025 9:13 AM EDT): Pt here for a HDF Admitted to [facility] from 03/18-03/21/2025 after he presented with c/o [...] acute bony abnormality. Pt was seen by Planner/Scheduler 05/17/2024 work up in progress Assessment & [...] and L1-L2 levels. Under the care of [facility] pain Management, they recommended PT and if [...] LS Spine, right hip Refer back to [facility] Assessment & Plan (04/06/2023 1:21 PM EDT): Pt with previous c/o acute om chronic lbp currently back pain is worse per his report intensity 4/10 no radiation not a good candidate for NSAIDS, continues to decline PT Pt was referred to [facility], pt did not go. plain film of LS spine unremarkable Preventative health care 03/02/2023 Assessment & Plan (03/13/2025 1:28 PM EDT): PSA 09/05/2024 : Normal, Colonoscopy: 07/29/2018 at [facility] diverticulosis Assessment & Plan (09/12/2024 9:25 AM EST): PSA 04/06/2023 : Normal, repeat ordered Colonoscopy: 07/29/2018 at [facility] diverticulosis Assessment & Plan (07/01/2023 1:02 PM EST): PSA 04/06/2023 : Normal Colonoscopy: 07/29/2018 at [facility] diverticulosis Assessment & Plan (04/06/2023 1:22 PM EDT): Colonoscopy: 07/29/2018 at [facility] diverticulosis Aortic valve stenosis 07/17/2022 Assessment & [...] EDT): Under the care of Cardiology last seenaugust per his report, will request records Last [...] exam was last done by Dr. Littlejohn (icer machine) No diabetic retinopathy. 07/31/2024 Microalbumin checked on: 11/29/2023 was: 7 Pt is on ARB (lisinopril caused him itchy throat and ? angioedema ? ) . Foot check risk of zero Pt reports compliance with Asa 81 mg po daily Plan: As per Dean Of Women Pt advised to: adhere to diabetic diet [...] exam was last done by Dr. Littlejohn (icer machine) No diabetic retinopathy. 07/31/2024 Microalbumin checked on: 11/29/2023 was: 7 Pt is on ARB (lisinopril caused him itchy throat and ? angioedema ? ) . Foot check risk of zero Pt reports compliance with Asa 81 mg po daily Plan: As per Dean Of Women Pt advised to: adhere to diabetic diet [...] exam was last done by Dr. Littlejohn (icer machine) No diabetic retinopathy. 07/31/2024 Microalbumin checked on: 11/29/2023 was: 7 Pt is on ARB (lisinopril caused him itchy throat and ? angioedema ? ) . Foot check risk of zero Pt reports compliance with Asa 81 mg po daily Plan: as per Dean Of Women Pt advised to: adhere to diabetic diet [...] exam was last done by Dr. Littlejohn (icer machine) No diabetic retinopathy. Microalbumin checked on: 11/29/2023 was: 7 Pt is no longer on an WALDEMAR inhibitor. (lisinopril caused him itchy throat and ? angioedema ? ) . Foot check risk of zero Pt reports compliance with Asa 81 mg po daily Plan: as per Dean Of Women Pt advised to: adhere to diabetic diet [...] exam was last done by Dr. Littlejohn (icer machine) No diabetic retinopathy. Microalbumin checked on: 01/14/2021 was: 22 Pt is no longer on an WALDEMAR inhibitor. (lisinopril caused him itchy throat and ? angioedema ? ) . Foot check risk of zero Pt reports compliance with Asa 81 mg po daily Plan: as per [facility] Of Women Pt advised to: adhere to diabetic diet [...] exam was last done by Dr. Littlejohn (icer machine) No diabetic retinopathy. Microalbumin checked on: 01/14/2021 was: 22 Pt is no longer on an WALDEMAR inhibitor. (lisinopril caused him itchy throat and ? angioedema ? ) . Will repeat Foot check risk of zero Pt reports compliance with Asa 81 mg po daily Plan: as per [facility] Of Women Pt advised to: adhere to diabetic diet [...] exam was last done by Dr. Littlejohn (icer machine) No diabetic retinopathy. Microalbumin checked on: 01/14/2021 was: 22 Pt is no longer on an WALDEMAR inhibitor. (lisinopril caused him itchy throat and ? angioedema ? 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 who he attributes the fact that [...] Encounters Date Type Department Care Team Description 05/17/2025 Orders Only [facility] External Provider, [facility] 05/15/2025 Orders Only GENERIC EXTERNAL DATA DEPARTMENT Provider, Generic External Data 05/15/2025 Results Follow-Up [facility] [address] [place] [address] Susan Arriaga MD D Dimer High Sensitivity 05/14/2025 Telephone [facility] [address] [place] [phone] Galo Fang MD Call Back Request 05/14/2025 Orders Only [facility] [address] [place] [address] Susan Arriaga MD 05/14/2025 Telephone [facility] PEDIATR[facility] [address] [place] [phone] Galo Fang MD CRITICAL LAB 05/11/2025 4:00 PM EDT Office Visit [facility] [address] [place] [phone] Susan Arriaga MD Pain of left calf (Primary Dx) 05/11/2025 Travel 04/30/2025 Orders Only GENERIC EXTERNAL DATA DEPARTMENT Provider, Generic External Data 04/30/2025 Telephone [facility] [address] [place] [phone] Galo Fang MD June recall 04/24/2025 Travel 04/16/2025 Refill [facility] [address] [place] [address] Galo Fang MD Gastroesophageal reflux disease without esophagitis 04/11/2025 Refill [facility] [address] [place] [address] Galo Fang MD 04/10/2025 9:30 AM EDT Office Visit [facility] [place] [address] Galo Fang MD Hospital discharge follow-up (Primary Dx); Type 2 diabetes mellitus with diabetic polyneuropathy, with long-term current use of insulin (CMS/HCC); Essential hypertension; History of aortic valve replacement 04/10/2025 Travel 04/09/2025 Telephone [facility] [place] [address] Galo Fang MD CHART PREP 03/30/2025 9:00 AM EDT Clinical Support [facility] [place] [address] 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, RN Opioid use disorder in remission 03/30/2025 Travel 03/23/2025 Refill [facility] [place] [address] Deidre Anton RN Opioid use disorder in remission 03/22/2025 Patient Outreach [facility] [place] [address] Galo Fang MD Transition Of Care (Tcm) (HDF scheduled) 03/18/2025 Orders Only GENERIC EXTERNAL DATA DEPARTMENT Provider, Generic External Data 03/16/2025 Refill [facility] [place] [address] Galo Fang MD 03/13/2025 1:15 PM EDT Office Visit [facility] [place] [address] Galo Fang MD Type 2 diabetes mellitus [...] diseases classified elsewhere 03/13/2025 Travel 03/12/2025 Telephone [facility] [address] [place] [address] Galo Fang MD Chart Prep 03/06/2025 Patient Outreach [facility] [address] [place] [address] Galo Fang MD Pre-visit Planning (SDOH screening was completed on 08/31/2024) 02/28/2025 Orders Only GENERIC EXTERNAL DATA DEPARTMENT Provider, Generic External Data 02/15/2025 Refill [facility] [address] [place] [address] Galo Fang MD from Last 3 Months [...] Office Visit [facility] [address] [place] [address] Carroll Roberts MD [address] [place] [address] 07/10/2025 10:00 AM EST Office Visit [facility] [address] [place] [address] Galo Fang MD [address] [place] [address] 09/21/2025 11:00 AM EST Office Visit [facility] OPTOMETRY [address] [place] [address] Paulo, Pat, OD [address] [place] [address] Health Maintenance Due Date Last Done Comments CT Colonography 1960 FIT DNA/Cologuard 1960 FIT 1960 FOBT 1960 Sigmoidoscopy 1960 Diabetes: Foot Exam 1970 Zoster Vaccines (1 of 2) 2010 RSV Patients and Patients Aged 60 years or older (1 - Risk 60-74 years 1-dose series) 2020 DTaP/Tdap/Td Vaccines (2 - Td or Tdap) 04/04/2025 04/04/2015, 02/06/2003 COVID-19 Vaccine ( - 2024- season) 2025 08/14/2021, 11/25/2020, 10/28/2020 Influenza Vaccine (#1) 2025 , 06/29/2017, 05/28/2016, Additional history exists Diabetes: Hemoglobin A1C 07/11/20252 025, 03/13/2025, 09/12/2024, Additional history exists SDOH [...] 025 9:26 AM EDT) No 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, hospice rn Procedure Name Priority Date/Time Associated Diagnosis Comments HIGH SENSITIVITY TROPONIN I Routine 05/17/2025 2:10 PM EDT NT-PROBNP Routine 05/17/2025 11:50 AM EDT HIGH SENSITIVITY TROPONIN I Routine 05/17/2025 11:50 AM EDT COMPREHENSIVE METABOLIC PANEL Routine 05/17/2025 11:50 AM EDT CBC WITH AUTO DIFFERENTIAL Routine 05/17/2025 11:50 AM EDT XR CHEST 1 VIEW Routine 05/17/2025 11:46 AM EDT MAGNESIUM Routine 05/15/2025 3:46 PM EDT LOWER EXTREMITY VENOUS DUPLEX LEFT Routine 05/14/2025 [...] polyneuropathy, with long-term current use of insulin ([facility]) POCT GLUCOSE Routine 04/10/2025 9:00 AM EDT Type 2 diabetes mellitus with diabetic polyneuropathy, with long-term current use of insulin ([facility]) CTA CHEST W AND WO CONTRAST Routine [...] polyneuropathy, with long-term current use of insulin ([facility]) POCT GLYCOSYLATED HEMOGLOBIN (HGB A1C) Routine 03/13/2025 1:26 PM EDT Type 2 diabetes mellitus with diabetic polyneuropathy, with long-term current use of insulin ([facility]) TSH W/REFLEX TO FT4 Routine 02/28/2025 1 [...] Relevant to Health Maintenance Results * (ABNORMAL) High Sensitivity Troponin I (05/17/2025 2:10 PM EDT) Only the most recent of3 resultswithin the time period is included. TROPONIN I HIGH SENSITIVITY 55.0(H) <3.5 - 35.0 ng/L [facility] Comment:The Meza high sens itivity Troponin-I results should beused in conjunction with other diagnostic information suchas ECG, clinical observations and information, and patientsymptoms to aid in the diagnosis of UT. 05/17/2025 2:10 PM EDT 05/17/2025 2:18 PM EDT us Generic External Data Provider LAB BLOOD ORDERAB LES Final Result [facility] [address] [place] [phone] * NT-proBNP (05/17/2025 11:50 AM EDT) Only the most recent of2 resultswithin the time period is included. NT-proBNP 111.0 <300 pg/mL [facility] Comment:Reference Range:Age Group (years) NT-proBNP (pg/ml) InterpretationAll <300 Negative: HF unlikelyFor patients presenting to the ED with clinical suspicion ofnew onset or worsening HF, see below:18 to <50 >299.9 to <450.0 Grayzone: [id number] to 75 >299.9 to <900.0 other causes of>75 >299.9 to <1800.0 NT-proBNP to <50 >449.9 Positive: HF [id number] >899.9>75 >1799.9Note: Elevated NT-proBNP levels should be interpreted inthe context of other clinical information. 05/17/2025 11:5 0 AM EDT 05/17/2025 11:55 AM EDT us Generic External Data Provider LAB BLOOD ORDERAB LES Final Result [facility] [address] [place] [phone] * (ABNORMAL) CBC auto differential (05/17/2025 11:50 AM EDT) Only the most recent of3 resultswithin the time period is included. White Blood Count 6.4 4.8 - 10.8 X10*3/uL [facility] Red Blood Count 4.51(L) 4.60 - 5.80 X10*6/uL [facility] Hemoglobin 12.6(L) 14.0 - 18.0 g/dl [facility] Hematocrit 38.0(L) 42.0 - 52.0 % [facility] Mean Corpuscular Volume 84.3 80.0 - 98.0 fL [facility] Mean Corpuscular Hemoglobin 27.9 27.0 - 33.0 pg [facility] Mean Corpuscular HGB Conc 33.2 31.0 - 36.0 g/dl [facility] Red Cell Distribution Width 13.2 11.0 - 16.0 % [facility] Platelet Count 192 160 - 400 X10*3/uL [facility] Mean Platelet Volume 9.3(L) 9.4 - 12.4 fL [facility] Neutrophils Percent Auto 63.2 45 - 73 % [facility] Imm Gran Pct Auto 0.2 0.0 - 0.4 % [facility] Lymphocytes Percent Auto 25.9 20 - 40 % [facility] Monocytes Percent Auto 5.0 2 - 11 % [facility] Eosinophils Percent Auto 4.8(H) 0 - 4 % [facility] Basophils Percent Auto 0.9 0 - 2 % [facility] NRBC Pct Auto 0.0 0.0 - 0.2 /100WBC [facility] Neutrophils Absolute Auto 4.1 2.0 - 8.3 x10*3/uL [facility] Imm Gran Abs Auto 0.01 0.00 - 0.03 X10*3/uL [facility] Lymphocytes Absolute Auto 1.7 1.2 - 4.9 X10*3/uL [facility] Monocytes Absolute Auto 0.3 0.1 - 1.2 X10*3/uL [facility] Eosinophils Absolute Auto 0.3 0.0 - 0.4 X10*3/uL [facility] Basophils Absolute Auto 0.1 0.0 - 0.2 X10*3/uL [facility] NRBC Abs Auto 0.000 0.0 - 0.012 X10*3/uL [facility] 05/17/2025 11:5 0 AM EDT 05/17/2025 11:55 AM EDT us Generic External Data Provider LAB BLOOD ORDERAB LES Final Result [facility] [address], [place] [phone] * (ABNORMAL) Comprehensive Metabolic Panel (05/17/2025 11:50 AM EDT) Only the most recent of3 resultswithin the time period is included. Sodium 137 135 - 145 mmol/L [facility] Potassium 4.5 3.3 - 5.1 mmol/L [facility] Chloride 100 96 - 108 mmol/L [facility] Carbon Dioxide 31(H) 22 - 29 mmol/L [facility] Anion Gap 11(L) 12 - 20 [facility] Urea Nitrogen (BUN) 14 9 - 16 mg/dL [facility] Creatinine, Serum 0.80 0.5 - 1.4 mg/dL [facility] Creatinine Clr Calc Pharmacy 105.9 [facility] Comment:eGFR (calculated fro m the MDRD study equation) and eCrCl(calculated from the Cockcroft-Gault equation) are based ondifferent parameters and may not yield comparable results.If eCrCl result is absurd, please check patient'sheight/weight. Estimated Glomerular Filt Rate >60 [facility] Comment:Chronic Kidney Disea se: Estimated GFR < 60 mL/min/[id number] Kidney Disease: Estimated GFR < 15 mL/min/1.73m2 Glucose 150(H) 60 - 115 mg/dL [facility] Calcium 9.2 8.4 - 10.2 mg/dL [facility] Bilirubin, Total 0.4 0.0 - 1.0 mg/dL [facility] Aspartate Amino Transferase 21 5 - 37 U/L [facility] Alanine Aminotransferase 16 0 - 40 U/L [facility] Total Protein 7.1 6.5 - 8.0 g/dL [facility] Albumin Level 4.3 3.5 - 5.0 g/dL [facility] Alkaline Phosphatase 81 39 - 117 U/L [facility] 05/17/2025 11:5 0 AM EDT 05/17/2025 11:55 AM EDT us Generic External Data Provider LAB BLOOD ORDERAB LES Final Result Performing Organization Address City/State/[facility] Co de Phone Number [facility] [address] [place] [address] [phone] * XR Chest 1 View (05/17/2025 11:46 AM EDT) Anatomical Region Laterality Modality Chest Radiographic Rosemarie ging 05/17/2025 11:4 6 AM EDT Narrative 05/17/2025 11:53 AM EDT [address] [address] XRay Report Signed Patient: Nemesio Brown MR#: [id number] : 1960 Acct:[id number] Age/Sex: 64 / M ADM Date: 05/17/25 Loc: HO.ED Attending Dr: Ordering Physician: Samson Mueller Date of Service: 05/17/25 Procedure(s): XR chest 1V Accession Number(s): [id number] cc: Samson Mueller; Galo Prajapati MD Reason for Exam: chest pain EXAMINATION: XR CHEST CLINICAL INFORMATION: chest pain COMPARISON: February 22, 2024 TECHNIQUE: Frontal view of the chest was obtained. FINDINGS: Sternotomy wires are present. Pacemaker generator projects over the left upper chest. There are 2 leads terminating in the right atrium and right ventricle. Lungs are clear and mildly hyperexpanded. Heart size is within normal limits. XR/XR chest 1V IMPRESSION: No acute disease. Electronically signed by: Benton Bowman MD 05/17/2025 11:49 AM EDT RP Dictated By: Benton Bowman MD Signed By: <Electronically signed by Benton Bowman MD in OV> 05/17/25 1149 DD/ 1146 TD/TT: 05/17/25 1144 Molding Line Assistant: Procedure Note Donotuseinterpreter, Image - 05/17/[address] [address] XRay Report Signed Patient: Shayla Brown#: [id number] : 1960Acct:[id number] Age/Sex: 64 / MADM Date: 05/17/25 Loc: .ED Attending Dr: Ordering Physician: Samson Mueller Date of Service: 05/17/25 Procedure(s): XR chest 1V Accession Number(s): [id number] cc: Samson Mueller; Galo Prajapati MD Reason for Exam: chest pain EXAMINATION: XR CHEST CLINICAL INFORMATION: chest pain COMPARISON: February 22, 2024 TECHNIQUE: Frontal view of the chest was obtained. FINDINGS: Sternotomy wires are present. Pacemaker generator projects over the left upper chest. There are 2 leads terminating in the right atrium and right ventricle. Lungs are clear and mildly hyperexpanded. Heart size is within normal limits. XR/XR chest 1V IMPRESSION: No acute disease. Electronically signed by: Benton Bowman MD 05/17/2025 11:49 AM EDT RP Dictated By: Benton Bowman MD Signed By: <Electronically signed by Benton Bowman MD in OV> 05/17/25 1149 DD/ 1146 TD/TT: 05/17/25 1144 Molding Line Assistant: [facility] External Provider IMG XR PROCEDURES Edited Result - Final * Magnesium (05/15/2025 3:46 PM EDT) Only the most recent of2 resultswithin the time period is included. Magnesium 2.2 1.6 - 2.6 mg/dL [facility] 05/15/2025 3:46 PM EDT 05/15/2025 3:46 PM EDT Generic External Data Provider LAB BLOOD ORDERAB LES Final Result Performing Organization Address City/State/[facility] Co de Phone Number [facility] [address] [place] [phone] * Lower Extremity Venous Duplex (05/14/2025 12:40 PM EDT) 05/14/2025 12:4 0 PM EDT Narrative [facility] - 05/14/2025 1:07 PM EDT [address] [address] Ultrasound Report Signed Patient: Nemesio Brown MR#: [id number] : 1960 Acct:[id number] Age/Sex: 64 / M ADM Date: 05/14/25 Loc: .ED Attending Dr: Ordering Physician: Amee Acosta Date of Service: 05/14/25 Procedure(s): US venous duplex LE Accession Number(s): [id number] cc: Galo Prajapati MD; Amee Acosta Reason [...] 05/14/25 1304 DD/ 1240 TD/TT: 05/14/25 1248 Molding Line Assistant: Procedure Note Donotuseinterpreter, Image - 05/14/2025 [place] [address] Ultrasound Report Signed Patient: Shayla Brown#: [id number] : 1960Acct:[id number] Age/Sex: 64 / MADM Date: 05/14/25 Loc: .ED Attending Dr: Ordering Physician: Amee Acosta Date of Service: 05/14/25 Procedure(s): US venous duplex LE LT Accession Number(s): [id number] cc: Galo Prajapati MD; Amee Acosta Reason [...] 05/14/25 1304 DD/ 1240 TD/TT: 05/14/25 1248 Molding Line Assistant: [facility] External Provider CV VASC ULAR PROCEDURES Final Result Performing Organization Address [facility] Co de Phone Number [facility] [address] [place] [phone] * (ABNORMAL) Prothrombin Time-INR (05/14/2025 12:28 PM EDT) Prothrombin Time 12.7(H) 10.9 - 12.4 SEC [facility] INTERNATIONAL NORM RATIO 1.1 0.9 - 1.1 [facility] Comment:INTERNATIONAL NORMAL IZED [...] 8 PM EDT 05/14/2025 12:32 PM EDT Generic External Data Provider LAB BLOOD ORDERAB LES Final Result Performing Organization Address [facility] Co de Phone Number [facility] [address] [place] [address] [phone] * D Dimer High Sensitivity (05/14/2025 9:43 AM EDT) Pathologist [facility] [place] D Dimer High Sensitivity 278 NG/ML [facility] Comment:Results of Homero [...] ORDERABLES Final Re sult Performing Organization Address [facility]/ZIP Co de Phone Number [facility] [address] [place] [address] [phone] * (ABNORMAL) Glucose, Whole Blood (04/30/2025 1:32 PM EDT) [facility] Glucose, Whole Blood 189(H) 60 - 115 mg/dL [facility] Comment:METER #: [id number] 0Testing performed in the Endocrinology Department [address] , [address], [facility]. 04/30/2025 1:32 PM EDT 04/30/2025 1:36 PM EDT us Generic External Data Provider LAB BLOOD ORDERAB LES Final Result Performing Organization Address [facility]/ZIP Co de Phone Number [facility] [address] [place] [address] [phone] * (ABNORMAL) POCT HGB A1C (04/10/2025 9:07 AM EDT) [facility] Hemoglobin A1C 7.6(A) 4.0 - 5.7 % QC Media Lot # [id number] Lot# Expiration Date 308, Blood 04/10/2025 9:07 AM EDT us Galo Ramey MD POINT OF CARE TEST EN TER/EDIT ORDERABLES Final Result * POCT Glucose (04/10/2025 9:00 AM EDT) Only the most recent of2 resultswithin the time period is included. Glucose Blood, POC 179 60 - 200 mg/dL Comment:random QC Media Lot # [id number] Lot# Expiration Date [id number] Blood Capillary blood specimen / Unknown 04/10/2025 9:00 AM EDT us Gaol Ramey MD POINT OF CARE TEST EN TER/EDIT ORDERABLES Final Result * CTA Abdomen Pelvis w/ and w/o Contrast (03/18/2025 11:23 AM EDT) Anatomical Region Laterality Modality Body, Pelvis, Abdomen Computed T omography 03/18/2025 11:2 3 AM EDT Narrative 03/18/2025 11:25 AM EDT [place] [address] [address] Scan Report Signed Patient: Nemesio Brown MR#: [id number] : 1960 Acct:[id number] Age/Sex: 64 / M ADM Date: 03/18/25 Loc: .ED Attending Dr: Ordering Physician: Elise Mccartney Date of Service: 03/18/25 Procedure(s): CT angio abdomen pelvis Accession Number(s): [id number] cc: Galo Prajapati MD; Elise Mccartney Report Number: [id number]: Total DLP = 671.00 mGy-cm CLINICAL HISTORY: r o dissection CT angiography chest, abdomen and pelvis with contrast. 3-D postprocessing. Comparison: None provided Findings: There is mild ectasia of the ascending thoracic aorta. The patient is status post aortic valve replacement. There is no evidence of aortic dissection. There are ieho-oq-qsyltxov coronary artery calcifications. There is a small [...] 03/18/25 1124 DD/ 1123 TD/TT: 03/18/25 1123 Molding Line Assistant: Procedure Note Donotuseinterpreter, Image - 03/18/[address] [place] [address] [address] Scan Report Signed Patient: Shayla Brown#: [id number] : 1960Acct:[id number] Age/Sex: 64 / MADM Date: 03/18/25 Loc: HO.ED Attending Dr: Ordering Physician: Elise Mccartney Date of Service: 03/18/25 Procedure(s): CT angio abdomen pelvis Accession Number(s): [id number] cc: Galo Prajaapti MD; Elise Mccartney Report Number: [id number]: Total DLP = 671.00 mGy-cm CLINICAL HISTORY: r o dissection CT angiography chest, abdomen and pelvis with contrast. 3-D postprocessing. Comparison: None provided Findings: There is mild ectasia of the ascending thoracic aorta. The patient is status post aortic valve replacement. There is no evidence of aortic dissection. There are xkdb-cy-pvogignk coronary artery calcifications. There is a small [...] 03/18/25 1124 DD/ 1123 TD/TT: 03/18/25 1123 Molding Line Assistant: [facility] External Provider IMG CT PROCEDURES Edited Result - Final * CTA Chest w/ and w/o Contrast (03/18/2025 11:23 AM EDT) Anatomical Region Laterality Modality Body, Chest Computed Tomogra phy 03/18/2025 11:2 3 AM EDT Narrative 03/18/2025 11:25 AM EDT [place] [address] CT Scan Report Signed Patient: Nemesio Brown MR#: [id number] : 1960 Acct:[id number] Age/Sex: 64 / M ADM Date: 03/18/25 Loc: HO.ED Attending Dr: Ordering Physician: Elise Mccartney Date of Service: 03/18/25 Procedure(s): CT angio chest aorta Accession Number(s): [id number] cc: Galo Prajapati MD; Elise Mccartney Report Number: [id number]: Total DLP = 0.00 mGy-cm CLINICAL HISTORY: r o dissection CT angiography chest, abdomen and pelvis with contrast. 3-D postprocessing. Comparison: None provided Findings: There is mild ectasia of the ascending thoracic aorta. The patient is status post aortic valve replacement. There is no evidence of aortic dissection. There are acqw-db-neouiikr coronary artery calcifications. There is a small [...] 03/18/25 1124 DD/ 1123 TD/TT: 03/18/25 1123 Molding Line Assistant: Procedure Note Donotuseinterpreter, Image - 03/18/[address] [place] [address] [address] Scan Report Signed Patient: Radha BrownarMR#: [id number] : 1960Acct:[id number] Age/Sex: 64 / MADM Date: 03/18/25 Loc: HO.ED Attending Dr: Ordering Physician: Elise Mccartney Date of Service: 03/18/25 Procedure(s): CT angio chest aorta Accession Number(s): [id number] cc: Galo Prajapati MD; Elise Mccartney Report Number: [id number]: Total DLP = 0.00 mGy-cm CLINICAL HISTORY: r o dissection CT angiography chest, abdomen and pelvis with contrast. 3-D postprocessing. Comparison: None provided Findings: There is mild ectasia of the ascending thoracic aorta. The patient is status post aortic valve replacement. There is no evidence of aortic dissection. There are rzav-ei-xzatxhcl coronary artery calcifications. There is a small [...] 03/18/25 1124 DD/ 1123 TD/TT: 03/18/25 1123 Molding Line Assistant: [facility] External Provider IMG CT PROCEDURES Edited Result - Final * HOLD LT BLUE - POSSIBLE COAG (03/18/2025 9:29 AM EDT) Pathologist [facility] [place] Hold Lt Blue - Possible Coag SEE NOTE [facility] Comment:Specimen will be hel d untested for 4 hours. Call Hematologyif testing is desired. 03/18/2025 9:29 AM EDT 03/18/2025 9:34 AM EDT Generic External Data Provider LAB BLOOD ORDERAB LES Final Result [facility] [address] [place] [address] [phone] * (ABNORMAL) B Type Natriuretic Peptide (BNP) (03/18/2025 9:29 AM EDT) B Type Natriuretic Peptide 387(H) <100 pg/mL [facility] 03/18/2025 9:29 AM EDT 03/18/2025 10:37 AM EDT us Generic External Data Provider LAB BLOOD ORDERAB LES Final Result Performing Organization Address [facility]/ZIP Co de Phone Number [facility] [address] [place] [address] [phone] * Lipase (03/18/2025 9:29 AM EDT) [facility] Lipase 10 8 - 78 U/L [facility] 03/18/2025 9:29 AM EDT 03/18/2025 9:32 AM EDT Generic External Data Provider LAB BLOOD ORDERAB LES Final Result Performing Organization Address [facility] Co de Phone Number [facility] [address] [place] [address] [phone] * (ABNORMAL) POCT glycosylated hemoglobin (Hgb A1c) (03/13/2025 1:26 PM EDT) [facility] Hemoglobin A1C 7.8(A) 4.0 - 5.7 % QC Media Lot # [id number] Lot# Expiration Date Blood Capillary blood specimen / Unknown 03/13/2025 1:26 PM EDT Galo Ramey MD POINT OF CARE TEST EN TER/EDIT ORDERABLES Final Result * TSH with Reflex to Free T4 (02/28/2025 10:04 AM EDT) [facility] TSH reflex Free T4 2.05 0.32 - 4.0 uIU/mL [facility] 02/28/2025 10:0 4 AM EDT 02/28/2025 10:04 AM EDT us Generic External Data Provider LAB BLOOD ORDERAB LES Final Result Performing Organization Address [facility] Co de Phone Number [facility] [address] [place] [address] [phone] * Platelet Count (02/28/2025 10:04 AM EDT) Platelet Count 264 160 - 400 X10*3/uL [facility] 02/28/2025 10:0 4 AM EDT 02/28/2025 10:04 AM EDT us Generic External Data Provider LAB BLOOD ORDERAB LES Final Result Performing Organization Address [facility] Phone Number [facility] [address] [place] [address] [phone] * ALT (02/28/2025 10:04 AM EDT) Alanine Aminotransferase 28 0 - 40 U/L [facility] 02/28/2025 10:0 4 AM EDT 02/28/2025 10:04 AM EDT us Generic External Data Provider LAB BLOOD ORDERAB LES Final Result Performing Organization Address [facility] de Phone Number [facility] [address] [place] [address] [phone] * Amylase (02/28/2025 10:04 AM EDT) Amylase 78 28 - 100 U/L [facility] 02/28/2025 10:0 4 AM EDT 02/28/2025 10:04 AM EDT us Generic External Data Provider LAB BLOOD ORDERAB LES Final Result Performing Organization Address [facility] Co de Phone Number [facility] [address] [place] [address] [phone] * (ABNORMAL) Lipid Panel, Standard (02/28/2025 10:04 AM EDT) Triglycerides 187(H) <150 mg/dL [facility] Comment:Desirable Triglyceri de: less than 150 mg/dLBorderline High Triglyceride 150-199 mg/dLHigh Triglyceride: 200-499 mg/dLVery High Triglyceride: greater than or equal to 5OO mg/dL Cholesterol 164 <200 mg/dL [facility] Comment:Desirable Cholestero l: less than 200 mg/dLBorderline High Cholesterol: 200-239 mg/dLHigh Cholesterol: greater than 239 mg/dL LDL Cholesterol Calculated 91 <100 mg/dL [facility] Comment:Desirable LDL: less than 100 mg/dLNear Optimal/Above Optimal LDL: 110- 129 mg/dLBorderline High LDL: 130-159 mg/dLHigh LDL: 160-189 mg/dLVery High LDL: greater than or equal to 190 mg/dL HDL Cholesterol 36(L) >40 mg/dL [facility] Comment:Desirable HDL: great er than 40 mg/dL Note: This HDL assay may give artificially low results in patients with liver disease. 02/28/2025 10:0 4 AM EDT 02/28/2025 10:04 AM EDT us Generic External Data Provider LAB BLOOD ORDERAB LES Final Result [facility] [address] [place] [address] [phone] * Albumin, Random Urine W/Creatinine (02/28/2025 10:02 AM EDT) Creatinine, Urine 208.62 mg/dL [facility] Microalbumin Urine 26.0 mg/L [facility] Microalbum Creatinine Ratio Ur 12.4 <30 ug/mg cr [facility] Comment:Albumin/Creatinine R atio Reference Ranges: Normal: < 30 ug/mg creatinine Microalbuminuria: 30 - 300 ug/mg creatinineClinical Albuminuria: > 300 ug/mg creatinine 02/28/2025 10:0 2 AM EDT 02/28/2025 10:36 AM EDT us Generic External Data Provider LAB URINE ORDERAB LES Final Result Performing Organization Address [facility] Co de Phone Number [facility] [address] [place] [address] [phone] * Hepatitis Panel, General (06/07/2024 10:41 AM EDT) Hepatitis A IgM Nonreactive Nonreactive [facility] Comment:IgM antibodies to ALBRECHT V not detected; does not exclude earlyacute or recovered HAV infection. ~Hepatitis B Surface Antibody NONREACTIVE Nonreactive [facility] Comment:Nonreactive: < 8.00 mIU/mL Hepatitis B Core Antibody Nonreactive Nonreactive [facility] Hepatitis C Antibody Nonreactive Nonreactive [facility] Comment:Antibodies to HCV no t detected; does not exclude early acuteHCV infection. Hepatitis B Surface Ag Negative Negative [facility] 06/07/2024 10:4 1 AM EDT 06/07/2024 10:41 AM EDT Generic External Data Provider LAB BLOOD ORDERAB LES Final Result Performing Organization Address [facility] Co de Phone Number [facility] [address] [place] [address] [phone] * HIV-1/2 Antigen and Antibodies, Fourth Generation, with Reflexes (06/07/2024 10:41 AM EDT) HIV AB/AG Nonreactive Nonreactive [facility] Comment:HIV-1 p24 Ag and/or HIV-1/HIV-2 Ab not detected.A test result that is nonreactive does not exclude thepossibility of exposure to or infection with HIV-1 and/orHIV-2. Nonreactive results in this assay for individualswith prior exposure to HIV-1 and/or HIV-2 may be due toantigen and antibody levels that are below the limit ofdetection of this assay.The [employer] HIV Ag/Ab Combo assay result andsupplemental assay results should be interpreted inconjunction with the patient's clinical presentation,history and other laboratory results. If the results areinconsistent with clinical evidence, additional testing issuggested to confirm the result. Blood Venous blood specimen / Unknown 06/07/2024 10:41 AM EDT 06/07/2024 10:41 AM EDT us Carroll Roberts MD LAB BLOOD ORDERABLES Final Res ult [facility] [address] [place] [phone] * Colonoscopy (07/29/2018) Colonoscopy Normal Normal 07/29/2018 Narrative Joanne[place]ia - 07/29/2018 1:52 PM EST Recommended 10 year follow up Historical Provider HEALTH MAINTENANCE Final Result from Last 3 Months or Most Recently Relevant to Health Maintenance Insurance [facility] C3 Care Teams Licensed Loan Officer Relationship Specialty Start Date End Date Galo Fang MD [address] [place] [phone] PCP - General Internal Medicine 04/04/14
--- OUTSIDE RECORDS SUMMARY | 2025-05-17 15:36 | XMS_ITS | Encounter Summary ---
Author Organization [employer] Address [address] [place] [address] [address] [address] Care Team Providers Care Machine Lay Out Worker Name Role Phone Galo Fang MD Primary Care Provide r Reason for Visit * Reason Comments Med Refill Encounter Details Date Type Department Care Team ([facility] Contact Info) Description 04/27/2023 Refill [facility] [address] [place] [phone] Carroll Roberts MD [address] [place] [address] [phone] Uncomplicated opioid dependence (CMS/HCC) Social History Tobacco [...] 06/22/2025 9:00 AM EST Office Visit [facility] [address] [place] [phone] Carroll Roberts MD [address] [place] [address] [phone] 07/10/2025 10:00 AM EST Office Visit [facility] [address] [place] [phone] Galo Fang MD [address] [place] [address] [phone] 09/21/2025 11:00 AM EST Office Visit [facility] [address] [place], [place] [phone] Pat Bates, OD [address] [place], [place] [phone] documented as of this encounter Visit Diagnoses Diagnosis Uncomplicated opioid dependence (CMS/HCC) (HCC) documented in this encounter Care Teams Machine Lay Out Worker Relationship Specialty Start Date End Date Galo Fang MD [address] [facility], [place] [phone] PCP - General Internal Medicine 04/04/14 documented as of this encounter
--- OUTSIDE RECORDS SUMMARY | 2025-05-17 15:36 | XMS_ITS | Encounter Summary ---
Author Organization [employer] Address 75 [facility] 7t [place] [address] Care Team Providers Care Career Development Director Name Role Phone Galo Fang MD Primary Care Provide r Encounter Details Date Type Department Care Team ([facility] Contact Info) Description 05/17/2025 Orders Only [facility] External Provider, [facility] Social History Tobacco Use Types Packs/Day Years [...] Description 06/22/2025 9:00 AM EST Office Visit [facility] MEDICINE [address] [place] [address] Carroll Roberts MD [address] [place] [address] 07/10/2025 10:00 AM EST Office Visit [facility] MEDICINE [address] [place] [address] Galo Fang MD [address] [place] [address] 09/21/2025 11:00 AM EST Office Visit [facility] OPTOMETRY [address] [place] [address] Pat Bates, OD [address] [place] [address] documented as of this encounter Goals Goal Patient Goal Type Associated Problems Recent Progress Patient-Stated? Author Increase coping skills to promote long-term recovery and improve ability to perform daily activities General On track( 025 9:26 AM EDT) Frieda Trevino RN documented as of this encounter Procedures Procedure Name Priority Date/Time Associated Diagnosis Comments HIGH SENSITIVITY TROPONIN I Routine 05/17/2025 2:10 PM EDT HIGH SENSITIVITY TROPONIN I Routine 05/17/2025 11:50 AM EDT NT-PROBNP Routine 05/17/2025 11:50 AM EDT CBC WITH AUTO DIFFERENTIAL Routine 05/17/2025 11:50 AM EDT COMPREHENSIVE METABOLIC PANEL Routine 05/17/2025 11:50 AM EDT XR CHEST 1 VIEW Routine 05/17/2025 11:46 AM EDT documented in this encounter Results * (ABNORMAL) High Sensitivity Troponin I (05/17/2025 2:10 PM EDT) [facility] TROPONIN I HIGH SENSITIVITY 55.0(H) <3.5 - 35.0 ng/L [facility] Comment:The Meza high sens itivity Troponin-I results should beused in conjunction with other diagnostic information suchas ECG, clinical observations and information, and patientsymptoms to aid in the diagnosis of MO. 05/17/2025 2:10 PM EDT 05/17/2025 2:18 PM EDT us Generic External Data Provider LAB BLOOD ORDERAB LES Final Result [facility] [address] [place] [phone] * NT-proBNP (05/17/2025 11:50 AM EDT) [facility] NT-proBNP 111.0 <300 pg/mL [facility] Comment:Reference Range:Age Group (years) NT-proBNP (pg/ml) InterpretationAll <300 Negative: HF unlikelyFor patients presenting to the ED with clinical suspicion ofnew onset or worsening HF, see below:18 to <50 >299.9 to <450.0 Grayzone: [id number] to 75 >299.9 to <900.0 other causes of>75 >299.9 to <1800.0 NT-proBNP [id number] to <50 >449.9 Positive: HF -10 >899.9>75 >1799.9Note: Elevated NT-proBNP levels should be interpreted inthe context of other clinical information. 05/17/2025 11:5 0 AM EDT 05/17/2025 11:55 AM EDT Generic External Data Provider LAB BLOOD ORDERAB LES Final Result Performing Organization Address [facility]/ZIP Co de Phone Number [facility] [address] [place] [phone] * (ABNORMAL) High Sensitivity Troponin I (05/17/2025 11:50 AM EDT) [facility] TROPONIN I HIGH SENSITIVITY 55.3(H) <3.5 - 35.0 ng/L [facility] Comment:The Meza high sens itivity Troponin-I results should beused in conjunction with other diagnostic information suchas ECG, clinical observations and information, and patientsymptoms to aid in the diagnosis of MO. 05/17/2025 11:5 0 AM EDT 05/17/2025 11:55 AM EDT [employer] External Data Provider LAB BLOOD ORDERAB LES Final Result Performing Organization Address [facility] Co de Phone Number [facility] [address] [place] [phone] * (ABNORMAL) Comprehensive Metabolic Panel (05/17/2025 11:50 AM EDT) [facility] Sodium 137 135 - 145 mmol/L [facility] Potassium 4.5 3.3 - 5.1 mmol/L [facility] Chloride 100 96 - 108 mmol/L [facility] Carbon Dioxide 31(H) 22 - 29 mmol/L [facility] Anion Gap 11(L) 12 - 20 [facility] Urea Nitrogen (BUN) 14 9 - 16 mg/dL [facility] Creatinine, Serum 0.80 0.5 - 1.4 mg/dL [facility] Creatinine Clr Calc Pharmacy 105.9 [facility] Comment:eGFR (calculated fro m the MDRD study equation) and eCrCl(calculated from the Cockcroft-Gault equation) are based ondifferent parameters and may not yield comparable results.If eCrCl result is absurd, please check patient'sheight/weight. Estimated Glomerular Filt Rate >60 [facility] Comment:Chronic Kidney Disea se: Estimated GFR < 60 mL/min/1.29q6Lpqevr Kidney Disease: Estimated GFR < 15 mL/min/1.73m2 Glucose 150(H) 60 - 115 mg/dL [facility] Calcium 9.2 8.4 - 10.2 mg/dL [facility] Bilirubin, Total 0.4 0.0 - 1.0 mg/dL [facility] Aspartate Amino Transferase 21 5 - 37 U/L [facility] Alanine Aminotransferase 16 0 - 40 U/L [facility] Total Protein 7.1 6.5 - 8.0 g/dL [facility] Albumin Level 4.3 3.5 - 5.0 g/dL [facility] Alkaline Phosphatase 81 39 - 117 U/L [facility] 05/17/2025 11:5 0 AM EDT 05/17/2025 11:55 AM EDT us Generic External Data Provider LAB BLOOD ORDERAB LES Final Result [facility] [address] [place] [phone] * (ABNORMAL) CBC auto differential (05/17/2025 11:50 AM EDT) White Blood Count 6.4 4.8 - 10.8 X10*3/uL [facility] Red Blood Count 4.51(L) 4.60 - 5.80 X10*6/uL [facility] Hemoglobin 12.6(L) 14.0 - 18.0 g/dl [facility] Hematocrit 38.0(L) 42.0 - 52.0 % [facility] Mean Corpuscular Volume 84.3 80.0 - 98.0 fL [facility] Mean Corpuscular Hemoglobin 27.9 27.0 - 33.0 pg [facility] Mean Corpuscular HGB Conc 33.2 31.0 - 36.0 g/dl [facility] Red Cell Distribution Width 13.2 11.0 - 16.0 % [facility] Platelet Count 192 160 - 400 X10*3/uL [facility] Mean Platelet Volume 9.3(L) 9.4 - 12.4 fL [facility] Neutrophils Percent Auto 63.2 45 - 73 % [facility] Imm Gran Pct Auto 0.2 0.0 - 0.4 % [facility] Lymphocytes Percent Auto 25.9 20 - 40 % [facility] Monocytes Percent Auto 5.0 2 - 11 % [facility] Eosinophils Percent Auto 4.8(H) 0 - 4 % [facility] Basophils Percent Auto 0.9 0 - 2 % [facility] NRBC Pct Auto 0.0 0.0 - 0.2 /100WBC [facility] Neutrophils Absolute Auto 4.1 2.0 - 8.3 x10*3/uL [facility] Imm Gran Abs Auto 0.01 0.00 - 0.03 X10*3/uL [facility] Lymphocytes Absolute Auto 1.7 1.2 - 4.9 X10*3/uL [facility] Monocytes Absolute Auto 0.3 0.1 - 1.2 X10*3/uL [facility] Eosinophils Absolute Auto 0.3 0.0 - 0.4 X10*3/uL [facility] Basophils Absolute Auto 0.1 0.0 - 0.2 X10*3/uL [facility] NRBC Abs Auto 0.000 0.0 - 0.012 X10*3/uL [facility] 05/17/2025 11:5 0 AM EDT 05/17/2025 11:55 AM EDT us Generic External Data Provider LAB BLOOD ORDERAB LES Final Result [facility] [address] [place] [phone] * XR Chest 1 View (05/17/2025 11:46 AM EDT) Anatomical Region Laterality Modality Chest Radiographic Rosemarie ging 05/17/2025 11:4 6 AM EDT Narrative 05/17/2025 11:53 AM EDT [address] [address] XRay Report Signed Patient: Nemesio Brown MR#: [id number] : 1960 Acct:[id number] Age/Sex: 64 / M ADM Date: 05/17/25 Loc: .ED Attending Dr: Ordering Physician: Samson Mueller Date of Service: 05/17/25 Procedure(s): XR chest 1V Accession Number(s): [id number] cc: Samson Mueller; Galo Prajapati MD Reason [...] Benton Bowman MD 05/17/2025 11:49 AM EDT Dictated By: Benton Bowman MD Signed By: <Electronically signed by Benton Bowman MD in OV> 05/17/25 1149 DD/ 1146 TD/TT: 05/17/25 1144 Quill Collector: Procedure Note Donotuseinterpreter, Image - 05/17/[address] [address] XRay Report Signed Patient: Josee BrownR#: [id number] : 1960Acct:[id number] Age/Sex: 64 / MADM Date: 05/17/25 Loc: HO.ED Attending Dr: Ordering Physician: Samson Mueller Date of Service: 05/17/25 Procedure(s): XR chest 1V Accession Number(s): [id number] cc: Samson Mueller; Galo Prajapati MD Reason [...] 05/17/25 1149 DD/ 1146 TD/TT: 05/17/25 1144 Quill Collector: [facility] External Provider IMG XR PROCEDURES Edited Result - Final documented in this encounter Visit Diagnoses Not on filedocumented in this encounter Additional Health Concerns Assessment Noted Time PHQ-9 Depression Total Score: 0 04/10/20 8:59 AM EDT documented as of this encounter Care Teams Career Development Director Relationship Specialty Start Date End Date Galo Fang MD [address] [place] [address] PCP - General Internal Medicine 04/04/14 documented as of this encounter
--- OUTSIDE RECORDS SUMMARY | 2025-05-17 15:36 | XMS_ITS | Encounter Summary ---
Author Organization [employer] Address [address] [place] [address] [address] [address] Care Team Providers Care Excel Developer Name Role Phone Galo Fang MD Primary Care Provide r Reason for Visit * Reason Comments Med Refill Encounter Details Date Type Department Care Team (Late Contact Info) Description 03/02/[address] [facility] [address] [place] [phone] Carroll Roberts MD [address] [place] [address] [phone] Uncomplicated opioid dependence (CMS/HCC) Social History Tobacco [...] 06/22/2025 9:00 AM EST Office Visit [facility] [address] [place] [phone] Carroll Roberts MD [address] [place] [address] [phone] 07/10/2025 10:00 AM EST Office Visit [facility] MED[facility] [address] [place] [address] Galo Fang MD [address] [place] [phone] 09/21/2025 11:00 AM EST Office Visit [facility] OPTOMETRY [address] [place], [place] [phone] Pat Bates, OD [address] [place] [address] documented as of this encounter Visit Diagnoses Diagnosis Uncomplicated opioid dependence (CMS/HCC) (HCC) documented in this encounter Care Teams Excel Developer Relationship Specialty Start Date End Date Galo Fang MD [address] [place], [place] [phone] PCP - General Internal Medicine 04/04/14 documented as of this encounter
--- OUTSIDE RECORDS SUMMARY | 2025-05-17 15:37 | XMS_ITS | Encounter Summary ---
Author Organization [employer] Address 75 [facility] 7t [place] [address] Care Team Providers Care Custom Seamstress Name Role Phone Galo Fang MD Primary Care Provide r Reason for Visit * Reason Comments Med Refill Encounter Details Date Type Department Care Team ([facility] st Contact Info) Description 04/20/2024 Refill [facility] [address] [place], [place] [phone] Jocelyn Cruz FNP [address] [place] [address] Social History Tobacco Use Types Packs/Day Years [...] Description 06/22/2025 9:00 AM EST Office Visit [facility] [address] [place] [address] Carroll Roberts MD [address] [place] [address] 07/10/2025 10:00 AM EST Office Visit [facility] [address] [place] [address] Galo Fang MD [address] [place] [address] 09/21/2025 11:00 AM EST Office Visit [facility] OPTOMETRY [address] [place] [address] Paulo, Pat, OD [address] [place] [address] documented as of this encounter Visit Diagnoses Not on filedocumented in this encounter Additional Health Concerns Assessment Noted Time PHQ-9 Depression Total Score: 0 07/01/20 23 1:10 PM EST documented as of this encounter Care Teams Custom Seamstress Relationship Specialty Start Date End Date Galo Fang MD [address] [place] [phone] PCP - General Internal Medicine 04/04/14 documented as of this encounter
--- OUTSIDE RECORDS SUMMARY | 2025-05-17 15:37 | XMS_ITS | Encounter Summary ---
Author Organization [employer] Address 75 [facility] 7t [place] [address] Care Team Providers Care Heavy Mobile Equipment Repairer Name Role Phone Galo Fang MD Primary Care Provide r Reason for Visit * Reason Comments Med Refill Encounter Details Date Type Department Care Team ([facility] st Contact Info) Description 12/03/[address] [facility] MED[facility]INE [address] [place] [address] Carroll Roberts MD [address] [place], [place] [phone] Uncomplicated opioid dependence (CMS/HCC) Social History Tobacco [...] 9:00 AM EST Office Visit [facility] MEDICINE [address] [place] [address] Carroll Roberts MD [address] [place] [address] 07/10/2025 10:00 AM EST Office Visit [facility] MEDICINE [address] [place] [address] Galo Fang MD [address] [place] [address] 09/21/2025 11:00 AM EST Office Visit [facility] OPTOMETRY [address] [place] [address] PauloPat womack, OD [address] [place] [address] documented as of this encounter Visit Diagnoses Diagnosis Uncomplicated opioid dependence (CMS/HCC) (HCC) documented in this encounter Additional Health Concerns Assessment Noted Time PHQ-9 Depression Total Score: 0 07/01/20 23 1:10 PM EST documented as of this encounter Care Teams Heavy Mobile Equipment Repairer Relationship Specialty Start Date End Date Galo Fang MD [address] [place] [phone] PCP - General Internal Medicine 04/04/14 documented as of this encounter
--- OUTSIDE RECORDS SUMMARY | 2025-05-17 15:37 | XMS_ITS | Encounter Summary ---
Author Organization [employer] Address 75 [facility] 7t [place] [address] Care Team Providers Care Slot Machine Department Floorperson Name Role Phone Galo Fang MD Primary Care Provide r Reason for Visit * Reason Comments Med Refill Encounter Details Date Type Department Care Team ([facility] st Contact Info) Description 04/20/2024 Refill [facility]ALK[facility] [address] [place] [address] [phone] Karuna Covington MD [address] [place] [address] Foreign body sensation, right eye Social History [...] Office Visit [facility] MEDICINE [address] [place] [address] Carroll Roberts MD [address] [place] [address] 07/10/2025 10:00 AM EST Office Visit [facility] MEDICINE [address] [place] [address] Galo Fang MD [address] [place] [address] 09/21/2025 11:00 AM EST Office Visit [facility] OPTOMETRY [address] [place] [address] Paulo, Pat, OD [address] [place] [address] documented as of this encounter Visit Diagnoses Diagnosis Foreign body sensation, right eye documented in this encounter Additional Health Concerns Assessment Noted Time PHQ-9 Depression Total Score: 0 07/01/20 23 1:10 PM EST documented as of this encounter Care Teams Slot Machine Department Floorperson Relationship Specialty Start Date End Date Galo Fang MD [address] [place] [phone] PCP - General Internal Medicine 04/04/14 documented as of this encounter
--- OUTSIDE RECORDS SUMMARY | 2025-05-17 15:37 | XMS_ITS | Encounter Summary ---
Author Organization [employer] Address 75 [facility] 7 [place] [address] Care Team Providers Care Hip Hop Dancer Name Role Phone Galo Fang MD Primary Care Provide r Reason for Visit * Reason Onset Date Comments Call Back Request 05/14/2025 Encounter Details Date Type Department Care Team ([facility] Contact Info) Description 05/14/2025 Telephone [facility] [address] [place], [place] [phone] Galo Fang MD [address] [place] [address] Call Back Request Social History Tobacco Use [...] encounter Miscellaneous Notes * Telephone Encounter - Gay Cedeno RN - 05/17/2025 2:37 PM EDT T/C to pt to review the process of lab registration. RN advises pt that if he is here to get labs done and he runs into any questions or problems he is able to ask clarification or go to walk-in center and ask for a nurse or a business manager to come assist him. Pt expresses understanding of the lab process now and agrees to plan of care. * Telephone Encounter - Kennedy Smith - 05/14/2025 10:43 AM EDT PT is requesting a callback regarding an unsatisfactory experience at [facility]. Patient reports that upon arrival, the registration staff stated there were no lab orders in the system and appeared unwilling to assist. TC then went to the Property Master, who confirmed the orders were in the system and should be accessible. When the patient returned to lab registration, he observed the staff member using a cell phone and reported that the individual walked away without assisting him. trestle mainternance laborer came out and informed him that he would not be seen at that location and must go to [facility] instead. Patient would like a call back to discuss the treatment and lack of support he received during thisvisit. documented in this encounter Plan of Treatment Upcoming Encounters Date Type Department Care Team (Late st Contact Info) Description 06/22/2025 9:00 AM EST Office Visit [facility] [address] [place] [address] Carroll Roberts MD [address] [place] [address] 07/10/2025 10:00 AM EST Office Visit [facility] MED[facility]INE [address] [place] [address] Galo Fang MD [address] [place] [address] 09/21/2025 11:00 AM EST Office Visit [facility] OPTOMETRY [address] [place] [address] Paulo, Pat, OD [address] [place] [address] documented as of this encounter Goals Goal [...] documented as of this encounter Care Teams Hip Hop Dancer Relationship Specialty Start Date End Date Galo Fang MD [address] [place] [address] PCP - General Internal Medicine 04/04/14 documented as of this encounter
--- OUTSIDE RECORDS SUMMARY | 2025-05-17 15:37 | XMS_ITS | Encounter Summary ---
Author Organization [employer] Address 75 [facility] 7t [place] [address] Care Team Providers Care Ship Harbor Pilot Name Role Phone Galo Fang MD Primary Care Provide r Reason for Visit * Reason Comments Med Refill Encounter Details Date Type Department Care Team ([facility] st Contact Info) Description 01/28/2024 Refill [facility] [address] [place] [address] Carroll Roberts MD [address] [place], [place] [phone] Uncomplicated opioid dependence (CMS/HCC) Social History Tobacco [...] 9:00 AM EST Office Visit [facility] [address] [place] [address] Carroll Roberts MD [address] [place] [address] 07/10/2025 10:00 AM EST Office Visit [facility] [address] [place] [address] Galo Fang MD [address] [place] [address] 09/21/2025 11:00 AM EST Office Visit [facility] OPTOMETRY [address] [place] [address] PauloPat womack, OD [address] [place] [address] documented as of this encounter Visit Diagnoses Diagnosis Uncomplicated opioid dependence (CMS/HCC) (HCC) documented in this encounter Additional Health Concerns Assessment Noted Time PHQ-9 Depression Total Score: 0 07/01/20 23 1:10 PM EST documented as of this encounter Care Teams Ship Harbor Pilot Relationship Specialty Start Date End Date Galo Fang MD [address] [place] [address] PCP - General Internal Medicine 04/04/14 documented as of this encounter
--- OUTSIDE RECORDS SUMMARY | 2025-05-17 15:37 | XMS_ITS | Encounter Summary ---
Author Organization [employer] Address 75 [facility] 7t [place] [address] Care Team Providers Care Entry Level Truck Driver Name Role Phone Galo Fang MD Primary Care Provide r Reason for Visit * Reason Comments Med Refill Encounter Details Date Type Department Care Team ([facility] st Contact Info) Description 12/23/2023 Refill [facility] [address] [place], [place] [phone] Carroll Roberts MD [address] [place], [place] [phone] Constipation, unspecified constipation type Social History Tobacco [...] Office Visit [facility] MED[facility]INE [address] [place] [address] Carroll Roberts MD [address] [place] [address] 07/10/2025 10:00 AM EST Office Visit [facility] [address] [place] [address] Galo Fang MD [address] [place] [address] 09/21/2025 11:00 AM EST Office Visit [facility] OPTOMETRY [address] [place] [address] Paulo, Pat, OD [address] [place] [address] documented as of this encounter Visit Diagnoses Diagnosis Constipation, unspecified constipation type documented in this encounter Additional Health Concerns Assessment Noted Time PHQ-9 Depression Total Score: 0 07/01/20 23 1:10 PM EST documented as of this encounter Care Teams Entry Level Truck Driver Relationship Specialty Start Date End Date Galo Fang MD [address] [place] [address] PCP - General Internal Medicine 04/04/14 documented as of this encounter
[2025-05-17 16:00] VITALS: BP 113/73; PULSE 73; RESP 18; TEMP 36.7; O2SAT 96
[2025-05-17 16:10] VITALS: BP 113/73; PULSE 73; RESP 18; TEMP 36.7; O2SAT 96
== END 2025-05-17 16:10 | disposition home or self-care (01) ==
PROVIDERS: Physician Assistant; Emergency Provider Emergency Medicine; PCP Internal Medicine
DX: R10.13 Epigastric pain (principal); R07.89 Other chest pain; R42 Dizziness and giddiness; I10 Essential (primary) hypertension; E11.9 Type 2 diabetes mellitus without complications; K21.9 Gastro-esophageal reflux disease without esophagitis; E66.9 Obesity, unspecified; Z68.32 Body mass index [BMI] 32.0-32.9, adult; Z79.899 Other long term (current) drug therapy; Z95.0 Presence of cardiac pacemaker
CPT/HCPCS: 36415; 71045; 80053; 83880; 84484; 85025; 93005; 99283; 99284

== ENCOUNTER → 2025-05-17 11:19 | Outpatient (BNV) | payer MEDICARE, MEDICAID, SELFPAY | PROVIDERS: PCP Internal Medicine; Visit Provider Radiology Diagnostic Radiology | DX: R07.9 Chest pain, unspecified (principal) | CPT/HCPCS: 71045 ==

== ENCOUNTER → 2025-05-17 11:19 | Outpatient (BNV) | payer MEDICARE, MEDICAID, SELFPAY | PROVIDERS: Emergency Provider Emergency Medicine; PCP Internal Medicine; Visit Provider Internal Medicine | DX: R07.9 Chest pain, unspecified (principal); Z95.0 Presence of cardiac pacemaker | CPT/HCPCS: 93010 ==

== ENCOUNTER → 2025-05-24 08:56 | Outpatient (REF) | payer MEDICARE, MEDICAID, SELFPAY ==
--- NOTE | ~2025-05-24 | NM_ITS ---
Lexiscan Myocardial perfusion study Indication: Nonsustained ventricular tachycardia to evaluate for myocardial ischemia Technique: The patient was brought in for a Lexiscan perfusion study on 05/24/2025 and was injected 0.4 mg of Lexiscan intravenously. Within a minute of this injection 35 mCi of sestamibi was given intravenously. Images were obtained using the SPECT gamma camera interlaced with the gating device. Images were obtained in supine position. Resting perfusion study was performed on 05/25/2025. Patient was administered 35 mCi of sestamibi intravenously at rest. Images were then obtained in supine position. Images obtained without without CT attenuation. Total DLP 145 mGy-cm. Images were processed with the software and compared side to side in short axis, horizontal long axis and vertical long axis views. Findings: Stress and rest perfusion study was suboptimal due to intense subdiaphragmatic uptake mostly in the liver interfering with inferior and inferolateral wall uptake as well as patient arms are by to side during imaging, potentially affecting lateral wall uptake The stress perfusion study showed nonattenuated images show mildly reduced uptake in the basal and mid inferolateral wall of the LV myocardium. Remainder of the LV myocardium is normally perfused. Attenuated corrected images are suboptimal with diffusely reduced uptake in multiple segments of the LV myocardium, more prominent in the inferolateral wall.. The gated study shows mildly reduced LV systolic function with calculated LVEF of 47%. LV cavity is normal in size. The gated study shows normal systolic wall thickening and contraction of segments. Resting study shows nonattenuated images show improved uptake in the mid and basal inferolateral wall of the LV myocardium. Gating at rest reveals normal systolic wall motion with ejection fraction at 46%. The findings are consistent with the suggestion of mild intensity reversible defect of the basal and mid inferolateral wall which could suggest ischemia however this could be artifactual given the quality of the study.. NM/NM cardiolite stress test Impression: 1. Myocardial perfusion imaging study shows mild intensity basal and mid inferolateral wall ischemia with low confidence of interpretation 2. Gated LVEF is 48% 3. Transient ischemic dilatation not present Nondiagnostic changes on EKG. Electronically signed by: Jean Pierre Marie MD 05/25/2025 04:04 PM EDT
--- NOTE | 2025-05-24 08:59 | CA_ITS ---
Acquisition Time: 2025-05-24 09:09:38 Total Exercise Time: 00:02:00 Test Indications: Abnormal ECG/NSVT Medications: SEE H&P Protocol: LEXISCAN Max HR: 93 BPM 59% of Pred: 156 BPM Max BP: 130/74 mmHG Max Work Load: 1.0 METS Pharmacological stress test with Lexiscan injection, while sitting and moving his legs, without anginal symptoms, without rare PVC, with normotensive response to injection, with nondiagnostic EKG for ischemia. Nuclear images pending. Test reviewed with Dr Marie. Referred By: Anastasiia Olson Electronically Signed By: ANASTASIIA OLSON
== END ==
LOC: HO.CARD 08:56
PROVIDERS: PCP Internal Medicine; Visit Provider Nurse Practitioner Family
DX: I47.29 Other ventricular tachycardia (principal); I25.10 Atherosclerotic heart disease of native coronary artery without angina pectoris; Z95.0 Presence of cardiac pacemaker
CPT/HCPCS: 78452; 93017; A9500; J0280; J2785

== ENCOUNTER → 2025-05-24 08:59 | Outpatient (BNV) | payer MEDICARE, MEDICAID, SELFPAY | PROVIDERS: PCP Internal Medicine; Visit Provider Nurse Practitioner Family | DX: I47.29 Other ventricular tachycardia (principal) | CPT/HCPCS: 78452; 93016; 93018 ==

== ENCOUNTER 2025-06-18 07:52 | Outpatient (AMB) | payer MEDICARE, MEDICAID, SELFPAY ==
--- OUTSIDE RECORDS SUMMARY | 2025-06-18 07:54 | XMS_ITS | Encounter Summary ---
Author Organization [employer] Address [address] [place] [address] [address] [place] [address] Care Team Providers Care Regional Facilities Specialist Name Role Phone Galo Fang MD Primary Care Provide r Encounter Details Date Type Department Care Team (Late st Contact Info) Description 12/23/2022 Abstract [facility] [address] [place] [phone] Galo Fang MD [address] [place] [address] [phone] Social History Tobacco Use Types Packs/Day Years [...] Contact Info) Description 06/22/2025 9:00 AM EST Clinical Support [facility] [address] [place] [phone] 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, GULSHAN 07/10/2025 10:00 AM EST Office Visit [facility] [address] [place] [phone] Galo Fang MD [address] [place] [address] 09/21/2025 11:00 AM EST Office Visit [facility] [address] [place] [address] [phone] Pat Bates, OD [address] [place] [address] documented as of this encounter Procedures Procedure Name Priority Date/Time Associated Diagnosis Comments COLONOSCOPY Routine 07/29/2018 documented in this encounter Results * Colonoscopy (07/29/2018) Colonoscopy Normal Normal 07/29/2018 Fadi Joanne, [place] - 07/29/2018 1:52 PM EST Recommended 10 year follow up us Historical Provider HEALTH MAINTENANCE Final Result documented in this encounter Visit Diagnoses Not on filedocumented in this encounter Care Teams Regional Facilities Specialist Relationship Specialty Start Date End Date Galo Fang MD [address] [place] [address] PCP - General Internal Medicine 04/04/14 documented as of this encounter
--- OUTSIDE RECORDS SUMMARY | 2025-06-18 07:54 | XMS_ITS | Encounter Summary ---
Author Organization [employer] Address [address] [place] [address] 7 [place] [address] Care Team Providers Care Telecommunications Operator Name Role Phone Galo Fang MD Primary Care Provide r Reason for Visit * Reason Comments Med Refill Encounter Details Date Type Department Care Team (Late Contact Info) Description 11/07/2022 Refill [facility] [address] [place] [phone] Carroll Roberts MD [address] [place], [place] [phone] Uncomplicated opioid dependence (CMS/HCC) Social History Tobacco [...] Description 06/22/2025 9:00 AM EST Clinical Support [facility] [address] [place] [address] [phone] 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, GULSHAN 07/10/2025 10:00 AM EST Office Visit [facility] [address] [place], [place] [phone] Galo Fang MD [address] [place], [place] [phone] 09/21/2025 11:00 AM EST Office Visit [facility] [address] [place], [place] [phone] Pat Bates, OD [address] [place], [place] [phone] documented as of this encounter Visit Diagnoses Diagnosis Uncomplicated opioid dependence (CMS/HCC) (HCC) documented in this encounter Care Teams Telecommunications Operator Relationship Specialty Start Date End Date Galo Fang MD [address] [place], [place] [phone] PCP - General Internal Medicine 04/04/14 documented as of this encounter
--- OUTSIDE RECORDS SUMMARY | 2025-06-18 07:54 | XMS_ITS | Encounter Summary ---
Author Organization [employer] Address [address] [place] [address] [address] [place] [address] Care Team Providers Care Principal Systems Architect Name Role Phone Galo Fang MD Primary Care Provide r Reason for Visit * Reason Comments Med Refill Encounter Details Date Type Department Care Team (Late st Contact Info) Description 11/03/[address] [facility] [address] [place] [phone] Jess Barriga MD [address] [place] [address] [phone] Mild intermittent asthma without complication Social History [...] Description 06/22/2025 9:00 AM EST Clinical Support [facility] [address] [place] [address] [phone] 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, GULSHAN 07/10/2025 10:00 AM EST Office Visit [facility] [address] [place], [place] [phone] Galo Fang MD 230 [place], [place] [phone] 09/21/2025 11:00 AM EST Office Visit [facility] OPTOM[facility] [address] [place] [address], [place] [address] Pat Bates, OD [address] [place], [place] [phone] documented as of this encounter Visit Diagnoses Diagnosis Mild intermittent asthma without complication documented in this encounter Care Teams Principal Systems Architect Relationship Specialty Start Date End Date Galo Fang MD [address] [place], [place] [phone] PCP - General Internal Medicine 04/04/14 documented as of this encounter
--- OUTSIDE RECORDS SUMMARY | 2025-06-18 07:54 | XMS_ITS | Encounter Summary ---
Author Organization [employer] Address [address] [facility] [address] [place] [address] Care Team Providers Care Telecom Coordinator Name Role Phone Galo Fang MD Primary Care Provide r Reason for Visit * Reason Comments Med Refill Encounter Details Date Type Department Care Team ([facility] st Contact Info) Description 09/08/2024 Refill [facility] [address] [place] [address] Carroll Roberts MD [address] [place], [place] [phone] Uncomplicated opioid dependence (CMS/HCC) Social History Tobacco [...] Description 06/22/2025 9:00 AM EST Clinical Support [facility] [address] [place] [address] 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, GULSHAN 07/10/2025 10:00 AM EST Office Visit [facility]INE [address] [place] [address] Galo Fang MD [address] [place] [address] 09/21/2025 11:00 AM EST Office Visit [facility] OPTOMETRY [address] [place] [address] Paulo, Pat, OD [address] [place] [address] documented as of this encounter Visit Diagnoses Diagnosis Uncomplicated opioid dependence (CMS/HCC) (HCC) documented in this encounter Additional Health Concerns Assessment Noted Time PHQ-9 Depression Total Score: 0 05/26/20 9:56 AM EDT documented as of this encounter Care Teams Telecom Coordinator Relationship Specialty Start Date End Date Galo Fang MD [address] [place] [phone] PCP - General Internal Medicine 04/04/14 documented as of this encounter
--- OUTSIDE RECORDS SUMMARY | 2025-06-18 07:54 | XMS_ITS | Encounter Summary ---
Author Organization [employer] Address [address] [place] [address] [address] [place] [address] Care Team Providers Care Supervisor [place] Name Role Phone Galo Fang MD Primary Care Provide r Reason for Visit * Reason Comments Med Refill Encounter Details Date Type Department Care Team (Late Contact Info) Description 04/27/2023 Refill [facility] [address] [place] [phone] Carroll Roberts MD [address] [place] [address] [phone] Uncomplicated opioid dependence (CMS/HCC) Social History Tobacco [...] Description 06/22/2025 9:00 AM EST Clinical Support [facility] [address] [place] [address] [phone] Fireda Richey RN 07/10/2025 10:00 AM EST Office Visit [facility] [address] [place] [phone] Galo Fang MD [address] [place] [address] [phone] 09/21/2025 11:00 AM EST Office Visit [facility] OPTOMETRY [address] [place] [address] Pat Bates, OD [address] [place] [address] documented as of this encounter Visit Diagnoses Diagnosis Uncomplicated opioid dependence (CMS/HCC) (HCC) documented in this encounter Care Teams Supervisor [place] Relationship Specialty Start Date End Date Galo Fang MD [address] [place] [phone] PCP - General Internal Medicine 04/04/14 documented as of this encounter
--- OUTSIDE RECORDS SUMMARY | 2025-06-18 07:54 | XMS_ITS | Encounter Summary ---
Author Organization [employer] Address [address] [facility] 7t [place] [address] Care Team Providers Care Head Pastry Chef Name Role Phone Galo Fang MD Primary Care Provide r Encounter Details Date Type Department Care Team ([facility] st Contact Info) Description 05/15/2025 Results Follow-Up [facility] [address] [place], [place] [phone] Susan Arriaga MD [address] [place], [place] [phone] D Dimer High Sensitivity Social History Tobacco [...] Description 06/22/2025 9:00 AM EST Clinical Support [facility] MED[facility] [address] [place] [phone] 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 RN 07/10/2025 10:00 AM EST Office Visit [facility] [address] [place] [address] Galo Fang MD [address] [place] [address] 09/21/2025 11:00 AM EST Office Visit [facility] OPTOMETRY [address] [place] [address] Paulo, Pat, OD [address] [place] [address] documented as of this encounter Goals Goal [...] documented as of this encounter Care Teams Head Pastry Chef Relationship Specialty Start Date End Date Galo Fang MD [address] [place] [phone] PCP - General Internal Medicine 04/04/14 documented as of this encounter
--- OUTSIDE RECORDS SUMMARY | 2025-06-18 07:54 | XMS_ITS | Encounter Summary ---
Author Organization [employer] Address [address] [place] [address] [address] [place] [address] Care Team Providers Care Bid Clerk Name Role Phone Galo Fang MD Primary Care Provide r Reason for Visit * Reason Comments Med Refill Encounter Details Date Type Department Care Team (Late Contact Info) Description 03/02/2023 Refill [facility] [address] [place] [phone] Carroll Roberts MD [address] [place], [place] [phone] Uncomplicated opioid dependence (CMS/HCC) Social History Tobacco [...] Description 06/22/2025 9:00 AM EST Clinical Support [facility] [address] [place] [address] [phone] 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, GULSHAN 07/10/2025 10:00 AM EST Office Visit [facility] [address] [place], [place] [phone] Galo Fang MD [address] [place], [place] [phone] 09/21/2025 11:00 AM EST Office Visit [facility] OPT[facility] [address] [place], [place] [phone] Pat Bates, OD [address] [place], [place] [phone] documented as of this encounter Visit Diagnoses Diagnosis Uncomplicated opioid dependence (CMS/HCC) (HCC) documented in this encounter Care Teams Bid Clerk Relationship Specialty Start Date End Date Galo Fang MD [address] [place], [place] [phone] PCP - General Internal Medicine 04/04/14 documented as of this encounter
--- OUTSIDE RECORDS SUMMARY | 2025-06-18 07:54 | XMS_ITS | Patient Health Record ---
Author Organization [facility] Address [address] [place] [address] Care Team Providers Care Cmm Programmer Name Role Phone Ahmet Abbasi Unavailable [phone] Reason For Referral No Information Plan Of Treatment No Information
--- OUTSIDE RECORDS SUMMARY | 2025-06-18 07:54 | XMS_ITS | Clinical Summary ---
Author Organization [employer] Address [address] [facility] [address] [place] [address] Care Team Providers Care Mix Maker Name Role Phone Galo Fang MD [...] 2 WEEKS 023 Active Continuous Blood Gluc Trimmer And Borer Machine Operator (FreeStyle Yahaira 2 [place]) device USE DIRECTED 023 Active FREESTYLE LITE [...] Once per day. 28 Film 2 025 Active buprenorphine-n aloxone (Suboxone) 2-0.5 MG per sublingual filmIndications :Opioid use disorder in remission Place 1 Film under the tongue Once per day. 28 Film 2 025 Active aspirin 81 MG EC tablet Take 1 tablet by mouth Once per day. Active omeprazole (PriLOSEC) [address] Thayer ons:Gastroesoph ageal reflux disease without esophagitis TAKE 1 CAPSULE BY MOUTH EVERY DAY IN THE MORNING 90 capsule 1 025 Active insulin degludec (Tresiba FlexTouch) 200 UNIT/ML injectionIndica tions:Type 2 diabetes mellitus with diabetic polyneuropathy, with long-term current use of insulin (HCC) Inject 80 Units under the skin at bedtime. 9 mL 3 025 2025 Active Tresiba FlexTouch 200 UNIT/ML injection INJECT 80 UNITS AT BEDTIME 9 mL 3 025 2024 Discontinued(D uplicate order (will not trigger notification to Pharmacy)) Active Problems Problem Noted Date Diagnosed Date Hospital discharge follow-up 04/10/2025 Assessment & Plan (04/10/2025 9:13 AM EDT): Pt here for a HDF Admitted to [facility] from 03/18-03/21/2025 after he presented [...] acute bony abnormality. Pt was seen by [facility] General Superintendent 05/17/2024 work up in progress Assessment & [...] levels. Under the care of [facility], they recommended PT and if no improvement would consider steroid injections On Baclofen 5 mg po TID PRN Assessment & Plan (11/09/2023 2:31 PM EDT): Pt with previous c/o acute om chronic lbp currently back pain is worse per his report intensity 6/10 radiation to right leg not a good candidate for NSAIDS, continues to decline PT Pt was referred to [facility], pt did not go. Previous plain film of LS spine unremarkable Plan:Plain films LS Spine, right hip Refer back to [facility] Assessment & Plan (04/06/2023 1:21 PM EDT): Pt with previous c/o acute om chronic lbp currently back pain is worse per his report intensity 4/10 no radiation not a good candidate for NSAIDS, continues to decline PT Pt was referred to [facility], pt did not go. plain film of LS spine unremarkable Preventative health care 03/02/2023 Assessment & Plan (03/13/2025 1:28 PM EDT): PSA 09/05/2024 : Normal, Colonoscopy: 07/29/2018 at [facility] diverticulosis Assessment & Plan (09/12/2024 9:25 AM EST): PSA 04/06/2023 : Normal, repeat ordered Colonoscopy: 07/29/2018 at [facility] diverticulosis Assessment & Plan (07/01/2023 1:02 PM EST): PSA 04/06/2023 : Normal Colonoscopy: 07/29/2018 at [facility] diverticulosis Assessment & Plan (04/06/2023 1:22 PM EDT): Colonoscopy: 07/29/2018 at [facility] diverticulosis Aortic valve stenosis 07/17/2022 [...] exam was last done by Dr. Littlejohn (flange machine operator) No diabetic retinopathy. 07/31/2024 Microalbumin checked on: 11/29/2023 was: 7 Pt is on ARB (lisinopril caused him itchy throat and ? angioedema ? ) . Foot check risk of zero Pt reports compliance with Asa 81 mg po daily Plan: As per Production Weigher Pt advised to: adhere to diabetic diet [...] exam was last done by Dr. Littlejohn (flange machine operator) No diabetic retinopathy. 07/31/2024 Microalbumin checked on: 11/29/2023 was: 7 Pt is on ARB (lisinopril caused him itchy throat and ? angioedema ? ) . Foot check risk of zero Pt reports compliance with Asa 81 mg po daily Plan: As per Production Weigher Pt advised to: adhere to diabetic diet [...] exam was last done by Dr. Littlejohn (flange machine operator) No diabetic retinopathy. 07/31/2024 Microalbumin checked on: 11/29/2023 was: 7 Pt is on ARB (lisinopril caused him itchy throat and ? angioedema ? ) . Foot check risk of zero Pt reports compliance with Asa 81 mg po daily Plan: as per Production Weigher Pt advised to: adhere to diabetic diet [...] exam was last done by Dr. Littlejohn (flange machine operator) No diabetic retinopathy. Microalbumin checked on: 11/29/2023 was: 7 Pt is no longer on an WALDEMAR inhibitor. (lisinopril caused him itchy throat and ? angioedema ? ) . Foot check risk of zero Pt reports compliance with Asa 81 mg po daily Plan: as per Production Weigher Pt advised to: adhere to diabetic diet [...] exam was last done by Dr. Littlejohn (flange machine operator) No diabetic retinopathy. Microalbumin checked on: 01/14/2021 was: 22 Pt is no longer on an WALDEMAR inhibitor. (lisinopril caused him itchy throat and ? angioedema ? ) . Foot check risk of zero Pt reports compliance with Asa 81 mg po daily Plan: as per Production Weigher Pt advised to: adhere to diabetic diet [...] exam was last done by Dr. Littlejohn (flange machine operator) No diabetic retinopathy. Microalbumin checked on: 01/14/2021 was: 22 Pt is no longer on an WALDEMAR inhibitor. (lisinopril caused him itchy throat and ? angioedema ? ) . Will repeat Foot check risk of zero Pt reports compliance with Asa 81 mg po daily Plan: as per Production Weigher Pt advised to: adhere to diabetic diet [...] exam was last done by Dr. Littlejohn (flange machine operator) No diabetic retinopathy. Microalbumin checked on: 01/14/2021 was: 22 Pt is no longer on an WALDEMAR inhibitor. (lisinopril caused him itchy throat and ? angioedema ? 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 who he attributes the fact that [...] Encounters Date Type Department Care Team Description 06/08/2025 Refill [facility] [address] [place] [phone] Galo Fang MD Type 2 diabetes mellitus with diabetic polyneuropathy, with long-term current use of insulin ([facility]) 05/24/2025 Orders Only [facility] External Provider, [facility] 05/17/2025 Orders Only [facility] External Provider, [facility] 05/15/2025 Orders Only GENERIC EXTERNAL DATA DEPARTMENT Provider, Generic External Data 05/15/2025 Results Follow-Up [facility] [address] [place] [address] Susan Arriaga MD D Dimer High Sensitivity 05/14/2025 Telephone [facility] [address] [place] [address] Galo Fang MD Call Back Request 05/14/2025 Orders Only [facility] [address] [place] [address] Susan Arriaga MD 05/14/2025 Telephone [facility] [address] [place] [phone] Galo Fagn MD CRITICAL LAB 05/11/2025 4:00 PM EDT Office Visit [facility] [address] Susan Arriaga MD Pain of left calf (Primary Dx) 05/11/2025 Travel 04/30/2025 Orders Only GENERIC EXTERNAL DATA DEPARTMENT Provider, Generic External Data 04/30/2025 Telephone [facility] [place] [address] Galo Fang MD June04/24/2025 Travel 04/16/2025 Refill [facility] [place] [address] Galo Fang MD Gastroesophageal reflux disease without esophagitis 04/11/2025 Refill [facility] [place] [address] Galo Fang MD 04/10/2025 9:30 AM EDT Office Visit [facility] [place] [address] Galo Fang MD Hospital discharge follow-up (Primary Dx); Type 2 diabetes mellitus with diabetic polyneuropathy, with long-term current use of insulin ([facility]); Essential hypertension; History of aortic valve replacement 04/10/2025 Travel 04/09/2025 Telephone [facility] [place] [address] Galo Fang MD CHART PREP 03/30/2025 9:00 AM EDT Clinical Support [place] [address] 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, RN Opioid use disorder in remission 03/30/2025 Travel 03/23/2025 Refill [facility] [place] [address] Deidre Anton RN Opioid use disorder in remission 03/22/2025 Patient Outreach [facility] [place] [address] Galo Fang MD Transition Of Care (Tcm) (HDF scheduled) 03/18/2025 Orders Only GENERIC EXTERNAL DATA DEPARTMENT Provider, Generic External Data from Last 3 Months Immunizations Immunization Administration [...] Description 06/22/2025 9:00 AM EST Clinical Support [facility] [address] [place] [address] 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, RN 07/10/2025 10:00 AM EST Office Visit [facility] [address] [place] [address] Galo Fang MD [address] [place] [address] 09/21/2025 11:00 AM EST Office Visit [facility] [address] [place] [address] Pat Bates, CHRISTINA [address] [place] [address] Health Maintenance Due Date Last Done Comments [...] 02/28/2026 02/28/2025, 08/18, 11/29/2023, Additional history exists Depression Screening 04/10/2026 04/10/2025, 04/10/20 25 Tobacco Screening 05/11/2026 05/11/2025 Eye Exam 07/31/2026 07/31/2024, 07/16, 07/31/2024, Additional history exists Colonoscopy 07/29/2028 07/29/2018, 07/16, 03/16/2013 Colorectal Cancer Screening 07/29/2028 Hepatitis A Vaccines Aged Out 12/16/2010, 07/23/20 09 No longer eligible based on patient's age to complete this topic Hepatitis B Vaccines Completed 12/16/2010, 08/20/2009, 07/23/2009 Pneumococcal Vaccine: 50+ Years Completed 05/23/2024, 01/23/2009 Hepatitis C Screening Completed 06/07/2024 , 06/07/2024, [...] 025 9:26 AM EDT) Frieda Trevino RN Procedures Procedure Name Priority Date/Time Associated Diagnosis Comments STRESS TEST WITH MYOCARDIAL PERFUSION Routine 05/24/2025 9:52 AM EDT HIGH SENSITIVITY TROPONIN I Routine 05/17/2025 2:10 [...] of insulin ([facility]) POCT GLUCOSE Routine 04/10/2025 9:00 AM EDT Type 2 diabetes mellitus with diabetic polyneuropathy, with long-term current use of insulin ([facility]) CTA CHEST W AND WO CONTRAST Routine [...] POSSIBLE COAG Routine 03/18/2025 9:29 AM EDT LIPID PANEL, STANDARD Routine 02/28/2025 10:04 AM EDT ALBUMIN, RANDOM URINE W/CREATININE Routine 02/28/2025 10:02 AM EDT HEPATITIS PANEL, GENERAL Routine 06/07/2024 10:41 AM EDT HM COLONOSCOPY Routine 07/29/2018 from Last 3 Months or Most Recently Relevant to Health Maintenance Results * Stress test with myocardial perfusion (05/24/2025 9:52 AM EDT) 05/24/2025 9:52 AM EDT Narrative [facility] - 05/25/2025 4:07 PM EDT [address] [address] Nuclear Medicine Report Signed Patient: Nemesio Brown MR#: [id number] : 1960 Acct:[id number] Age/Sex: 64 / M ADM Date: 05/24/25 Loc: HO.CARD Attending Dr: Anastasiia ALLEN Ordering Physician: Anastasiia Olson Date of Service: 05/24/25 Procedure(s): NM cardiolite stress test Accession Number(s): [id number] cc: Anastasiia Olson; Galo Prajapati MD Reason for Exam: I47.29 - Other ventricular tachycardialexiscan stress Lexiscan Myocardial perfusion study Indication: Nonsustained ventricular tachycardia to evaluate for myocardial ischemia Technique: The patient was brought in for a Lexiscan perfusion study on 05/24/2025 and was injected 0.4 mg of Lexiscan intravenously. Within a minute of this injection 35 mCi of sestamibi was given intravenously. Images were obtained using the SPECT gamma camera interlaced with the gating device. Images were obtained in supine position. Resting perfusion study was performed on 05/25/2025. Patient was administered 35 mCi of sestamibi intravenously at rest. Images were then obtained in supine position. Images obtained without without CT attenuation. Total DLP 145 mGy-cm. Images were processed with the software and compared side to side in short axis, horizontal long axis and vertical long axis views. Findings: Stress and rest perfusion study was suboptimal due to intense subdiaphragmatic uptake mostly in the liver interfering with inferior and inferolateral wall uptake as well as patient arms are by to side during imaging, potentially affecting lateral wall uptake The stress perfusion study showed nonattenuated images show mildly reduced uptake in the basal and mid inferolateral wall of the LV myocardium. Remainder of the LV myocardium is normally perfused. Attenuated corrected images are suboptimal with diffusely reduced uptake in multiple segments of the LV myocardium, more prominent in the inferolateral wall.. The gated study shows mildly reduced LV systolic function with calculated LVEF of 47%. LV cavity is normal in size. The gated study shows normal systolic wall thickening and contraction of segments. Resting study shows nonattenuated images show improved uptake in the mid and basal inferolateral wall of the LV myocardium. Gating at rest reveals normal systolic wall motion with ejection fraction at 46%. The findings are consistent with the suggestion of mild intensity reversible defect of the basal and mid inferolateral wall which could suggest ischemia however this could be artifactual given the quality of the study.. NM/NM cardiolite stress test Impression: 1. Myocardial perfusion imaging study shows mild intensity basal and mid inferolateral wall ischemia with low confidence of interpretation 2. Gated LVEF is 48% 3. Transient ischemic dilatation not present Nondiagnostic changes on EKG. Electronically signed by: Jean Pierre Marie MD 05/25/2025 04:04 PM EDT Dictated By: Jean Pierre Marie MD Signed By: <Electronically signed by Jean Pierre Marie MD in OV> 05/25/25 1604 DD/ 0952 TD/TT: 05/25/25 1200 Medical Scheduler: Procedure Note Donotuseinterpreter, Image - 05/25/[address] [address] Nuclear Medicine Report Signed Patient: Radha BrownarMR#: [id number] : 1960Acct:[id number] Age/Sex: 64 / MADM Date: 05/24/25 Loc: HO.CARD Attending Dr: Anastasiia ALLEN Ordering Physician: Anastasiia Olson Date of Service: 05/24/25 Procedure(s): NM cardiolite stress test Accession Number(s): [id number] cc: Anastasiia Olson; Galo Prajapati MD Reason for Exam: I47.29 - Other ventricular tachycardialexiscanstress Lexiscan Myocardial perfusion study Indication: Nonsustained ventricular tachycardia to evaluate for myocardial ischemia Technique: The patient was brought in for a Lexiscan perfusion study on 05/24/2025 and was injected 0.4 mg of Lexiscan intravenously. Within a minute of this injection 35 mCi of sestamibi was given intravenously. Images were obtained using the SPECT gamma camera interlaced with the gating device. Images were obtained in supine position. Resting perfusion study was performed on 05/25/2025. Patient was administered 35 mCi of sestamibi intravenously at rest. Images were then obtained in supine position. Images obtained without without CT attenuation. Total DLP 145 mGy-cm. Images were processed with the software and compared side to side in short axis, horizontal long axis and vertical long axis views. Findings: Stress and rest perfusion study was suboptimal due to intense subdiaphragmatic uptake mostly in the liver interfering with inferior and inferolateral wall uptake as well as patient arms are by to side during imaging, potentially affecting lateral wall uptake The stress perfusion study showed nonattenuated images show mildly reduced uptake in the basal and mid inferolateral wall of the LV myocardium. Remainder of the LV myocardium is normally perfused. Attenuated corrected images are suboptimal with diffusely reduced uptake in multiple segments of the LV myocardium, more prominent in the inferolateral wall.. The gated study shows mildly reduced LV systolic function with calculated LVEF of 47%. LV cavity is normal in size. The gated study shows normal systolic wall thickening and contraction of segments. Resting study shows nonattenuated images show improved uptake in the mid and basal inferolateral wall of the LV myocardium. Gating at rest reveals normal systolic wall motion with ejection fraction at 46%. The findings are consistent with the suggestion of mild intensity reversible defect of the basal and mid inferolateral wall which could suggest ischemia however this could be artifactual given the quality of the study.. NM/NM cardiolite stress test Impression: 1. Myocardial perfusion imaging study shows mild intensity basal and mid inferolateral wall ischemia with low confidence of interpretation 2. Gated LVEF is 48% 3. Transient ischemic dilatation not present Nondiagnostic changes on EKG. Electronically signed by: Jean Pierre Marie MD 05/25/2025 04:04 PM EDT RP Dictated By: Jean Pierre Marie MD Signed By: <Electronically signed by Jean Pierre Marie MD in OV> 05/25/25 1604 DD/ 0952 TD/TT: 05/25/25 1200 Medical Scheduler: [facility] External Provider CV STRE SS PROCEDURES Final Result Performing Organization Address [facility] Co de Phone Number [facility] [address] [place] [phone] * (ABNORMAL) High Sensitivity Troponin I (05/17/2025 2:10 PM EDT) Only the most recent of3 resultswithin the time period is included. TROPONIN I HIGH SENSITIVITY 55.0(H) <3.5 - 35.0 ng/L [facility] Comment:The Meza high sens itivity Troponin-I results should beused in conjunction with other diagnostic information suchas ECG, clinical observations and information, and patientsymptoms to aid in the diagnosis of MN. 05/17/2025 2:10 PM EDT 05/17/2025 2:18 PM EDT Generic External Data Provider LAB BLOOD ORDERAB LES Final Result Performing Organization Address [facility] Co de Phone Number [facility] [address] [place] [address] [phone] * NT-proBNP (05/17/2025 11:50 AM EDT) Only the most recent of2 resultswithin the time period is included. NT-proBNP 111.0 <300 pg/mL [facility] Comment:Reference Range:Age Group (years) NT-proBNP (pg/ml) InterpretationAll <300 Negative: HF unlikelyFor patients presenting to the ED with clinical suspicion ofnew onset or worsening HF, see below:18 to <50 >299.9 to <450.0 Grayzone: [id number] to 75 >299.9 to <900.0 other causes of>75 >299.9 to <1800.0 NT-proBNP lgiguozut13 to <50 >449.9 Positive: HF -56 >899.9>75 >1799.9Note: Elevated NT-proBNP levels should be interpreted inthe context of other clinical information. 05/17/2025 11:5 0 AM EDT 05/17/2025 11:55 AM EDT us Generic External Data Provider LAB BLOOD ORDERAB LES Final Result [facility] [address] [place] [phone] * (ABNORMAL) CBC auto differential (05/17/2025 11:50 AM EDT) Only the most recent of3 resultswithin the time period is included. White Blood Count 6.4 4.8 - 10.8 X10*3/uL [facility] Red Blood Count 4.51(L) 4.60 - 5.80 X10*6/uL [facility] Hemoglobin 12.6(L) 14.0 - 18.0 g/dl [facility] Hematocrit 38.0(L) 42.0 - 52.0 % [facility] Mean Corpuscular Volume 84.3 80.0 - 98.0 fL [facility] Mean Corpuscular Hemoglobin 27.9 27.0 - 33.0 pg [facility] Mean Corpuscular HGB Conc 33.2 31.0 - 36.0 g/dl [facility] Red Cell Distribution Width 13.2 11.0 - 16.0 % [facility] Platelet Count 192 160 - 400 X10*3/uL [facility] Mean Platelet Volume 9.3(L) 9.4 - 12.4 fL [facility] Neutrophils Percent Auto 63.2 45 - 73 % [facility] Imm Gran Pct Auto 0.2 0.0 - 0.4 % [facility] Lymphocytes Percent Auto 25.9 20 - 40 % [facility] Monocytes Percent Auto 5.0 2 - 11 % [facility] Eosinophils Percent Auto 4.8(H) 0 - 4 % [facility] Basophils Percent Auto 0.9 0 - 2 % [facility] NRBC Pct Auto 0.0 0.0 - 0.2 /100WBC [facility] Neutrophils Absolute Auto 4.1 2.0 - 8.3 x10*3/uL [facility] Imm Gran Abs Auto 0.01 0.00 - 0.03 X10*3/uL [facility] Lymphocytes Absolute Auto 1.7 1.2 - 4.9 X10*3/uL [facility] Monocytes Absolute Auto 0.3 0.1 - 1.2 X10*3/uL [facility] Eosinophils Absolute Auto 0.3 0.0 - 0.4 X10*3/uL [facility] Basophils Absolute Auto 0.1 0.0 - 0.2 X10*3/uL [facility] NRBC Abs Auto 0.000 0.0 - 0.012 X10*3/uL [facility] 05/17/2025 11:5 0 AM EDT 05/17/2025 11:55 AM EDT us Generic External Data Provider LAB BLOOD ORDERAB LES Final Result [facility] [address] [place] [address] [phone] * (ABNORMAL) Comprehensive Metabolic Panel (05/17/2025 11:50 AM EDT) Only the most recent of3 resultswithin the time period is included. Sodium 137 135 - 145 mmol/L [facility] Potassium 4.5 3.3 - 5.1 mmol/L [facility] Chloride 100 96 - 108 mmol/L [facility] Carbon Dioxide 31(H) 22 - 29 mmol/L [facility] Anion Gap 11(L) 12 - 20 [facility] Urea Nitrogen (BUN) 14 9 - 16 mg/dL [facility] Creatinine, Serum 0.80 0.5 - 1.4 mg/dL [facility] Creatinine Clr Calc Pharmacy 105.9 [facility] Comment:eGFR (calculated fro m the MDRD study equation) and eCrCl(calculated from the Cockcroft-Gault equation) are based ondifferent parameters and may not yield comparable results.If eCrCl result is absurd, please check patient'sheight/weight. Estimated Glomerular Filt Rate >60 [facility] Comment:Chronic Kidney Disea se: Estimated GFR < 60 mL/min/1.46l4Jaylpt Kidney Disease: Estimated GFR < 15 mL/min/1.73m2 Glucose 150(H) 60 - 115 mg/dL [facility] Calcium 9.2 8.4 - 10.2 mg/dL [facility] Bilirubin, Total 0.4 0.0 - 1.0 mg/dL [facility] Aspartate Amino Transferase 21 5 - 37 U/L [facility] Alanine Aminotransferase 16 0 - 40 U/L [facility] Total Protein 7.1 6.5 - 8.0 g/dL [facility] Albumin Level 4.3 3.5 - 5.0 g/dL [facility] Alkaline Phosphatase 81 39 - 117 U/L [facility] 05/17/2025 11:5 0 AM EDT 05/17/2025 11:55 AM EDT us Generic External Data Provider LAB BLOOD ORDERAB LES Final Result [facility] [address] [place], [place] [phone] * XR Chest 1 View (05/17/2025 11:46 AM EDT) Anatomical Region Laterality Modality Chest Radiographic Rosemarie ging 05/17/2025 11:4 6 AM EDT Narrative 05/17/2025 11:53 AM EDT [address] [address] XRay Report Signed Patient: Nemesio Brown MR#: [id number] : 1960 Acct:[id number] Age/Sex: 64 / M ADM Date: 05/17/25 Loc: HO.ED Attending Dr: Ordering Physician: Samson Mueller Date of Service: 05/17/25 Procedure(s): XR chest 1V Accession Number(s): [id number] cc: Samson Mueller; Galo Prajapati MD Reason [...] 05/17/25 1149 DD/ 1146 TD/TT: 05/17/25 1144 Medical Scheduler: Procedure Note Donotuseinterpreter, Image - 05/17/[address] [address] XRay Report Signed Patient: Radha BrownarMR#: [id number] : 1960Acct:[id number] Age/Sex: 64 / MADM Date: 05/17/25 Loc: HO.ED Attending Dr: Ordering Physician: Samson Mueller Date of Service: 05/17/25 Procedure(s): XR chest 1V Accession Number(s): [id number] cc: Samson Mueller; Galo Prajapati MD Reason [...] 05/17/25 1149 DD/ 1146 TD/TT: 05/17/25 1144 Medical Scheduler: [facility] External Provider IMG XR PROCEDURES Edited Result - Final * Magnesium (05/15/2025 3:46 PM EDT) Only the most recent of2 resultswithin the time period is included. Magnesium 2.2 1.6 - 2.6 mg/dL [facility] 05/15/2025 3:46 PM EDT 05/15/2025 3:46 PM EDT Generic External Data Provider LAB BLOOD ORDERAB LES Final Result [facility] [address] [place] [phone] * Lower Extremity Venous Duplex (05/14/2025 12:40 PM EDT) 05/14/2025 12:4 0 PM EDT Narrative [facility] - 05/14/2025 1:07 PM EDT [address] [address] Ultrasound Report Signed Patient: Nemesio Brown MR#: [id number] : 1960 Acct:[id number] Age/Sex: 64 / M ADM Date: 05/14/25 Loc: HO.ED Attending Dr: Ordering Physician: Amee Acosta Date of Service: 05/14/25 Procedure(s): US venous duplex LE LT Accession Number(s): [id number] cc: Galo Prajapati MD; Amee Acosta Reason [...] 05/14/25 1304 DD/ 1240 TD/TT: 05/14/25 1248 Medical Scheduler: Procedure Note Donotuseinterpreter, Image - 05/14/[address] [address] Ultrasound Report Signed Patient: Shayla Brown#: [id number] : 1960Acct:[id number] Age/Sex: 64 / MADM Date: 05/14/25 Loc: .ED Attending Dr: Ordering Physician: Amee Acosta Date of Service: 05/14/25 Procedure(s): US venous duplex LE LT Accession Number(s): [id number] cc: Galo Prajapati MD; Amee Acosta Reason [...] 05/14/25 1304 DD/ 1240 TD/TT: 05/14/25 1248 Medical Scheduler: us [facility] External Provider CV VASC ULAR PROCEDURES Final Result [facility] [address] [place] [phone] * (ABNORMAL) Prothrombin Time-INR (05/14/2025 12:28 PM EDT) Prothrombin Time 12.7(H) 10.9 - 12.4 SEC [facility] INTERNATIONAL NORM RATIO 1.1 0.9 - 1.1 [facility] Comment:INTERNATIONAL NORMAL IZED RATIO (INR) REFERENCE [...] ORDERAB LES Final Result Performing Organization Address [facility] Co de Phone Number [facility] [address] [place] [phone] * D Dimer High Sensitivity (05/14/2025 9:43 AM EDT) Pathologist [facility] D Dimer High Sensitivity 278 NG/ML [facility] Comment:Results of Homero ca lled to [...] ORDERABLES Final Re sult Performing Organization Address [facility] Co de Phone Number [facility] [address] [place] [phone] * (ABNORMAL) Glucose, Whole Blood (04/30/2025 1:32 PM EDT) Pathologist [facility] Glucose, Whole Blood 189(H) 60 - 115 mg/dL [facility] Comment:METER #: [id number] 0Testing performed in the Endocrinology Department [address] , [address], [facility]. 04/30/2025 1:32 PM EDT 04/30/2025 1:36 PM EDT us Generic External Data Provider LAB BLOOD ORDERAB LES Final Result Performing Organization Address [facility]/State/ZIP Co de Phone Number [facility] [address] [place] [address] [phone] * (ABNORMAL) POCT HGB A1C (04/10/2025 9:07 AM EDT) Hemoglobin A1C 7.6(A) 4.0 - 5.7 % QC Media Lot # [id number] Lot# Expiration Date [id number] Blood 04/10/2025 9:07 AM EDT Galo Ramey MD POINT OF CARE TEST EN TER/EDIT ORDERABLES Final Result * POCT Glucose (04/10/2025 9:00 AM EDT) Glucose Blood, POC 179 60 - 200 mg/dL Comment:random QC Media Lot # [id number] Lot# Expiration Date [id number] Blood Capillary blood specimen / Unknown 04/10/2025 9:00 AM EDT Galo Ramey MD POINT OF CARE TEST EN TER/EDIT ORDERABLES Final Result * CTA Abdomen Pelvis w/ and w/o Contrast (03/18/2025 11:23 AM EDT) Anatomical Region Laterality Modality Body, Pelvis, Abdomen Computed T omography 03/18/2025 11:2 3 AM EDT Narrative 03/18/2025 11:25 AM EDT [address] [address] [address] Scan Report Signed Patient: Nemesio Brown MR#: [id number] : 1960 Acct:[id number] Age/Sex: 64 / M ADM Date: 03/18/25 Loc: .ED Attending Dr: Ordering Physician: Elise Mccartney Date of Service: 03/18/25 Procedure(s): CT angio abdomen pelvis Accession Number(s): [id number] cc: Galo Prajapati MD; Elise Mccartney Report Number: [id number]: Total DLP = 671.00 mGy-cm CLINICAL HISTORY: r o dissection CT angiography chest, abdomen and pelvis with contrast. 3-D postprocessing. Comparison: None provided Findings: There is mild ectasia of the ascending thoracic aorta. The patient is status post aortic valve replacement. There is no evidence of aortic dissection. There are wpce-ak-afuykxly coronary artery calcifications. There is a small [...] 03/18/25 1124 DD/ 1123 TD/TT: 03/18/25 1123 Medical Scheduler: Procedure Note Donotuseinterpreter, Image - 03/18/[address] [address] [address] Scan Report Signed Patient: Radha BrownarMR#: [id number] : 1960Acct:[id number] Age/Sex: 64 / MADM Date: 03/18/25 Loc: HO.ED Attending Dr: Ordering Physician: Elise Mccartney Date of Service: 03/18/25 Procedure(s): CT angio abdomen pelvis Accession Number(s): [id number] cc: Gaol Prajapati MD; Elise Mccartney Report Number: [id number]: Total DLP = 671.00 mGy-cm CLINICAL HISTORY: r o dissection CT angiography chest, abdomen and pelvis with contrast. 3-D postprocessing. Comparison: None provided Findings: There is mild ectasia of the ascending thoracic aorta. The patient is status post aortic valve replacement. There is no evidence of aortic dissection. There are tkyk-ad-qgtekmms coronary artery calcifications. There is a small [...] 03/18/25 1124 DD/ 1123 TD/TT: 03/18/25 1123 Medical Scheduler: [facility] External Provider IMG CT PROCEDURES Edited Result - Final * CTA Chest w/ and w/o Contrast (03/18/2025 11:23 AM EDT) Anatomical Region Laterality Modality Body, Chest Computed Tomogra phy 03/18/2025 11:2 3 AM EDT Narrative 03/18/2025 11:25 AM EDT [address] [address] [address] Scan Report Signed Patient: Nemesio Brown MR#: [id number] : 1960 Acct:[id number] Age/Sex: 64 / M ADM Date: 03/18/25 Loc: HO.ED Attending Dr: Ordering Physician: Elise Mccartney Date of Service: 03/18/25 Procedure(s): CT angio chest aorta Accession Number(s): [id number] cc: Galo Prajapati MD; Elise Mccartney Report Number: [id number]: Total DLP = 0.00 mGy-cm CLINICAL HISTORY: r o dissection CT angiography chest, abdomen and pelvis with contrast. 3-D postprocessing. Comparison: None provided Findings: There is mild ectasia of the ascending thoracic aorta. The patient is status post aortic valve replacement. There is no evidence of aortic dissection. There are jwdm-jo-prazunao coronary artery calcifications. There is a small [...] 03/18/25 1124 DD/ 1123 TD/TT: 03/18/25 1123 Medical Scheduler: Procedure Note Donotuseinterpreter, Image - 03/18/[address] [address] [address] Scan Report Signed Patient: Radha BrownarMR#: [id number] : 1960Acct:[id number] Age/Sex: 64 / MADM Date: 03/18/25 Loc: HO.ED Attending Dr: Ordering Physician: Elise Mccartney Date of Service: 03/18/25 Procedure(s): CT angio chest aorta Accession Number(s): [id number] cc: Galo Prajapati MD; Elise Mccartney Report Number: [id number]: Total DLP = 0.00 mGy-cm CLINICAL HISTORY: r o dissection CT angiography chest, abdomen and pelvis with contrast. 3-D postprocessing. Comparison: None provided Findings: There is mild ectasia of the ascending thoracic aorta. The patient is status post aortic valve replacement. There is no evidence of aortic dissection. There are axfa-hl-fugjtnaz coronary artery calcifications. There is a small [...] 03/18/25 1124 DD/ 1123 TD/TT: 03/18/25 1123 Medical Scheduler: us [facility] External Provider IMG CT PROCEDURES Edited Result - Final * HOLD LT BLUE - POSSIBLE COAG (03/18/2025 9:29 AM EDT) Hold Lt Blue - Possible Coag SEE NOTE [facility] Comment:Specimen will be hel d untested for 4 hours. Call Hematologyif testing is desired. 03/18/2025 9:29 AM EDT 03/18/2025 9:34 AM EDT us Generic External Data Provider LAB BLOOD ORDERAB LES Final Result Performing Organization Address [facility] Co de Phone Number [facility] [address] [place] [phone] * (ABNORMAL) B Type Natriuretic Peptide (BNP) (03/18/2025 9:29 AM EDT) B Type Natriuretic Peptide 387(H) <100 pg/mL [facility] 03/18/2025 9:29 AM EDT 03/18/2025 10:37 AM EDT Generic External Data Provider LAB BLOOD ORDERAB LES Final Result Performing Organization Address [facility] Co de Phone Number [facility] [address] [place] [phone] * Lipase (03/18/2025 9:29 AM EDT) Pathologist [facility] Lipase 10 8 - 78 U/L [facility] 03/18/2025 9:29 AM EDT 03/18/2025 9:32 AM EDT Generic External Data Provider LAB BLOOD ORDERAB LES Final Result Performing Organization Address [facility] Co de Phone Number [facility] [address] [place] [phone] * (ABNORMAL) Lipid Panel, Standard (02/28/2025 10:04 AM EDT) Triglycerides 187(H) <150 mg/dL [facility] Comment:Desirable Triglyceri de: less than 150 mg/dLBorderline High Triglyceride 150-199 mg/dLHigh Triglyceride: 200-499 mg/dLVery High Triglyceride: greater than or equal to 5OO mg/dL Cholesterol 164 <200 mg/dL [facility] Comment:Desirable Cholestero l: less than 200 mg/dLBorderline High Cholesterol: 200-239 mg/dLHigh Cholesterol: greater than 239 mg/dL LDL Cholesterol Calculated 91 <100 mg/dL [facility] Comment:Desirable LDL: less than 100 mg/dLNear Optimal/Above Optimal LDL: 110- 129 mg/dLBorderline High LDL: 130-159 mg/dLHigh LDL: 160-189 mg/dLVery High LDL: greater than or equal to 190 mg/dL HDL Cholesterol 36(L) >40 mg/dL [facility] Comment:Desirable HDL: great er than 40 mg/dL Note: This HDL assay may give artificially low results in patients with liver disease. 02/28/2025 10:0 4 AM EDT 02/28/2025 10:04 AM EDT Generic External Data Provider LAB BLOOD ORDERAB LES Final Result Performing Organization Address [facility]/ZIP Co de Phone Number [facility] [address] [place] [address] [phone] * Albumin, Random Urine W/Creatinine (02/28/2025 10:02 AM EDT) Creatinine, Urine 208.62 mg/dL [facility] Microalbumin Urine 26.0 mg/L [facility] Microalbum Creatinine Ratio Ur 12.4 <30 ug/mg cr [facility] Comment:Albumin/Creatinine R atio Reference Ranges: Normal: < 30 ug/mg creatinine Microalbuminuria: 30 - 300 ug/mg creatinineClinical Albuminuria: > 300 ug/mg creatinine 02/28/2025 10:0 2 AM EDT 02/28/2025 10:36 AM EDT us Generic External Data Provider LAB URINE ORDERAB LES Final Result Performing Organization Address [facility]/ZIP Co de Phone Number [facility] [address] [place] [address] [phone] * Hepatitis Panel, General (06/07/2024 10:41 AM EDT) Hepatitis A IgM Nonreactive Nonreactive [facility] Comment:IgM antibodies to ALBRECHT V not detected; does not exclude earlyacute or recovered HAV infection. ~Hepatitis B Surface Antibody NONREACTIVE Nonreactive [facility] Comment:Nonreactive: < 8.00 mIU/mL Hepatitis B Core Antibody Nonreactive Nonreactive [facility] Hepatitis C Antibody Nonreactive Nonreactive [facility] Comment:Antibodies to HCV no t detected; does not exclude early acuteHCV infection. Hepatitis B Surface Ag Negative Negative [facility] 06/07/2024 10:4 1 AM EDT 06/07/2024 10:41 AM EDT us Generic External Data Provider LAB BLOOD ORDERAB LES Final Result Performing Organization Address City/State/[facility] Co de Phone Number [facility] [address] [place] [address] [phone] * Colonoscopy (07/29/2018) Colonoscopy Normal Normal 07/29/2018 Narrative [place] Rubio - 07/29/2018 1:52 PM EST Recommended 10 year follow up Historical Provider MD HEALTH MAINTENANCE Final Result from Last 3 Months or Most Recently Relevant to Health Maintenance Insurance [facility] C3 Care Teams Mix Maker Relationship Specialty Start Date End Date Galo Fang MD [address] [place] [phone] PCP - General Internal Medicine 04/04/14
--- OUTSIDE RECORDS SUMMARY | 2025-06-18 07:54 | XMS_ITS | Encounter Summary ---
Author Organization [facility] Address [address] [place] [address] [address] [place] [address] Care Team Providers Care Health Care / Medical Job Titles Name Role Phone Galo Fang MD Primary Care Provide r Reason for Visit * Reason Comments Med Refill Encounter Details Date Type Department Care Team (Late Contact Info) Description 11/12/2022 Refill [facility] [address] [place] [phone] Galo Fang MD [address] [place] [phone] Gastroesophageal reflux disease, unspecified whether esophagitis present [...] Description 06/22/2025 9:00 AM EST Clinical Support [facility] [address] [place] [address] [phone] 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, GULSHAN 07/10/2025 10:00 AM EST Office Visit [facility] [address] [place] [address] [phone] Galo Fang MD [address] [place] [phone] 09/21/2025 11:00 AM EST Office Visit [facility] [address] [place] [address] Pat Bates, OD [address] [place], [place] [phone] documented as of this encounter Visit Diagnoses Diagnosis Gastroesophageal reflux disease, unspecified whether esophagitis present documented in this encounter Care Teams Health Care / Medical Job Titles Relationship Specialty Start Date End Date Galo Fang MD [address] [place], [place] [phone] PCP - General Internal Medicine 04/04/14 documented as of this encounter
--- OUTSIDE RECORDS SUMMARY | 2025-06-18 07:54 | XMS_ITS | Encounter Summary ---
Author Organization [employer] Address [address] [place] [address] 7[address] [place] [address] Care Team Providers Care Bacon Slicer Name Role Phone Galo Fang MD Primary Care Provide r Reason for Visit * Reason Onset Date Comments Med Refill TP 01/02/2023 Encounter Details Date Type Department Care Team (Late st Contact Info) Description 01/02/2023 Telephone [facility]ICINE [address] [place] [phone] Carroll Roberts MD [address] [place] [address] Med Refill; TP Social History Tobacco Use [...] Description 06/22/2025 9:00 AM EST Clinical Support [facility] [address] [place] [address] 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 RN 07/10/2025 10:00 AM EST Office Visit [facility] [address] [place] [address] Galo Fang MD [address] [place] [address] 09/21/2025 11:00 AM EST Office Visit [facility] [address] [place], [place] [phone] Pat Bates, OD [address] [place] [address] documented as of this encounter Visit Diagnoses Diagnosis Uncomplicated opioid dependence (CMS/HCC) (HCC) documented in this encounter Care Teams Bacon Slicer Relationship Specialty Start Date End Date Galo Fang MD [address] [place], [place] [phone] PCP - General Internal Medicine 04/04/14 documented as of this encounter
--- OUTSIDE RECORDS SUMMARY | 2025-06-18 07:55 | XMS_ITS | Encounter Summary ---
Author Organization [employer] Address [address] [place] [address] [address] [place] [address] Care Team Providers Care Coat Tailor Name Role Phone Galo Fang MD Primary Care Provide r Reason for Visit * Reason Comments Med Refill Encounter Details Date Type Department Care Team (Late Contact Info) Description 06/22/2023 Refill [facility] [address] [place] [phone] Carroll Roberts MD [address] [place] [address] [phone] Uncomplicated opioid dependence (CMS/HCC) Social History Tobacco [...] Description 06/22/2025 9:00 AM EST Clinical Support [facility] [address] [place] [address] [phone] 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 RN 07/10/2025 10:00 AM EST Office Visit [facility] [address] [place] [phone] Galo Fang MD [address] [place] [address] [phone] 09/21/2025 11:00 AM EST Office Visit [facility] [address] [place] [address] Pat Bates, OD [address] [place] [address] documented as of this encounter Visit Diagnoses Diagnosis Uncomplicated opioid dependence (CMS/HCC) (HCC) documented in this encounter Care Teams Coat Tailor Relationship Specialty Start Date End Date Galo Fang MD [address] [place] [address] PCP - General Internal Medicine 04/04/14 documented as of this encounter
--- OUTSIDE RECORDS SUMMARY | 2025-06-18 07:55 | XMS_ITS | Encounter Summary ---
Author Organization [employer] Address [address] [place] [address] [address] [place] [address] Care Team Providers Care Mathematics Faculty Member Name Role Phone Galo Fang MD Primary Care Provide r Encounter Details Date Type Department Care Team (Late Contact Info) Description 06/14/2023 Abstract [facility] MEDICINE [address] [place] [phone] Galo Fang MD [address] [place] [address] [phone] Social History Tobacco Use Types Packs/Day Years [...] Description 06/22/2025 9:00 AM EST Clinical Support [facility]IC[facility] [address] [place] [phone] 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, GULSHAN 07/10/2025 10:00 AM EST Office Visit [facility] MEDIC[facility] [address] [place] [phone] Galo Fang MD [address] [place] [address] 09/21/2025 11:00 AM EST Office Visit [facility] OPTOMETRY [address] [place] [phone] Pat Bates, OD [address] [place] [address] documented as of this encounter Procedures Procedure Name Priority Date/Time Associated Diagnosis Comments COLONOSCOPY Routine 07/29/2018 COLONOSCOPY Routine 03/16/2013 documented in this encounter Results * Colonoscopy (07/29/2018) Colonoscopy Normal Normal us Historical Provider HEALTH MAINTENANCE Edited Result - Final * Colonoscopy (03/16/2013) Colonoscopy Normal Normal Narrative Georgia Rubio - 03/16/2013 Recommended 10 year follow up us Historical Provider HEALTH MAINTENANCE Final Result documented in this encounter Visit Diagnoses Not on filedocumented in this encounter Care Teams Mathematics Faculty Member Relationship Specialty Start Date End Date Galo Fang MD [address] [place] [address] PCP - General Internal Medicine 04/04/14 documented as of this encounter
--- OUTSIDE RECORDS SUMMARY | 2025-06-18 07:55 | XMS_ITS | Encounter Summary ---
Author Organization [employer] Address [address] [facility] 7t [place] [address] Care Team Providers Care Pathological Technician Name Role Phone Galo Fang MD Primary Care Provide r Reason for Visit * Reason Comments Med Refill Encounter Details Date Type Department Care Team ([facility] st Contact Info) Description 01/28/2024 Refill [facility] [address] [place] [address] Carroll Roberts MD [address] [place], [place] [phone] Uncomplicated opioid dependence (CMS/HCC) Social History Tobacco [...] 9:00 AM EST Clinical Support [facility] [address] [place] [phone] 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, GULSHAN 07/10/2025 10:00 AM EST Office Visit [facility] [address] [place] [address] Galo Fang MD [address] [place] [address] 09/21/2025 11:00 AM EST Office Visit [facility] OPTOM[facility] [address] [place] [address] Pat Bates, OD [address] [place] [address] documented as of this encounter Visit Diagnoses Diagnosis Uncomplicated opioid dependence (CMS/HCC) (HCC) documented in this encounter Additional Health Concerns Assessment Noted Time PHQ-9 Depression Total Score: 0 07/01/20 23 1:10 PM EST documented as of this encounter Care Teams Pathological Technician Relationship Specialty Start Date End Date Galo Fang MD [address] [place] [phone] PCP - General Internal Medicine 04/04/14 documented as of this encounter
--- OUTSIDE RECORDS SUMMARY | 2025-06-18 07:55 | XMS_ITS | Encounter Summary ---
Author Organization [employer] Address [address] [facility] 7t [place] [address] Care Team Providers Care Casting Associate Name Role Phone Galo Fang MD Primary Care Provide r Reason for Visit * Reason Comments Med Refill Encounter Details Date Type Department Care Team ([facility] st Contact Info) Description 10/08/[address] [facility] MED[facility]INE [address] [place] [address] Carroll Roberts MD [address] [place] [address] Uncomplicated opioid dependence (CMS/HCC) Social History Tobacco [...] 9:00 AM EST Clinical Support [facility] MEDICINE [address] [place] [phone] 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, GULSHAN 07/10/2025 10:00 AM EST Office Visit [facility] MEDICINE [address] [place] [address] Galo Fang MD [address] [place] [address] 09/21/2025 11:00 AM EST Office Visit [facility] OPTOMETRY [address] [place] [address] Pat Bates, OD [address] [place] [address] documented as of this encounter Visit Diagnoses Diagnosis Uncomplicated opioid dependence (CMS/HCC) (HCC) documented in this encounter Additional Health Concerns Assessment Noted Time PHQ-9 Depression Total Score: 0 07/01/20 23 1:10 PM EST documented as of this encounter Care Teams Casting Associate Relationship Specialty Start Date End Date Galo Fang MD [address] [place] [phone] PCP - General Internal Medicine 04/04/14 documented as of this encounter
--- OUTSIDE RECORDS SUMMARY | 2025-06-18 07:55 | XMS_ITS | Encounter Summary ---
Author Organization [facility] Address [address] [facility] 7t [place] [address] Care Team Providers Care Motion Picture Critic Name Role Phone Galo Fang MD Primary Care Provide r Reason for Visit * Reason Comments Med Refill Encounter Details Date Type Department Care Team ([facility] st Contact Info) Description 04/20/2024 Refill [facility] [address] [place], [place] [phone] Jocelyn Cruz FNP [address] [place] [address] Social History Tobacco Use Types Packs/Day Years [...] Description 06/22/2025 9:00 AM EST Clinical Support [facility] [address] [place] [address] 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, GULSHAN 07/10/2025 10:00 AM EST Office Visit [facility] [address] [place] [address] Galo Fang MD [address] [place] [address] 09/21/2025 11:00 AM EST Office Visit [facility] OPT[facility] [address] [place] [address] Paulo, Pat, OD [address] [place] [address] documented as of this encounter Visit Diagnoses Not on filedocumented in this encounter Additional Health Concerns Assessment Noted Time PHQ-9 Depression Total Score: 0 07/01/20 23 1:10 PM EST documented as of this encounter Care Teams Motion Picture Critic Relationship Specialty Start Date End Date Galo Fang MD [address] [place] [address] PCP - General Internal Medicine 04/04/14 documented as of this encounter
--- OUTSIDE RECORDS SUMMARY | 2025-06-18 07:55 | XMS_ITS | Encounter Summary ---
Author Organization [employer] Address [address] [facility] 7t [place] [address] Care Team Providers Care Inspector Raw Quartz Name Role Phone Galo Fang MD Primary Care Provide r Reason for Visit * Reason Comments Med Refill Encounter Details Date Type Department Care Team ([facility] st Contact Info) Description 12/23/2023 Refill [facility] [address] [place], [place] [phone] Carroll Roberts MD [address] [place], [place] [phone] Constipation, unspecified constipation type Social History Tobacco [...] Description 06/22/2025 9:00 AM EST Clinical Support [facility] [address] [place] [phone] 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, GULSHAN 07/10/2025 10:00 AM EST Office Visit [facility] [address] [place] [address] Galo Fang MD [address] [place] [address] 09/21/2025 11:00 AM EST Office Visit [facility] OPT[facility] [address] [place] [address] Paulo, Pat, OD [address] [place] [address] documented as of this encounter Visit Diagnoses Diagnosis Constipation, unspecified constipation type documented in this encounter Additional Health Concerns Assessment Noted Time PHQ-9 Depression Total Score: 0 07/01/20 23 1:10 PM EST documented as of this encounter Care Teams Inspector Raw Quartz Relationship Specialty Start Date End Date Galo Fang MD [address] [place] [address] PCP - General Internal Medicine 04/04/14 documented as of this encounter
--- OUTSIDE RECORDS SUMMARY | 2025-06-18 07:55 | XMS_ITS | Encounter Summary ---
Author Organization [email or web address] Address [address] [facility] 7t [place] [address] Care Team Providers Care Screedman Name Role Phone Galo Fang MD Primary Care Provide r Reason for Visit * Reason Comments Med Refill Encounter Details Date Type Department Care Team ([facility] st Contact Info) Description 04/20/2024 Refill [facility] [address] [place] [id number] Karuna Covington MD [address] [place] [address] Foreign body sensation, right eye Social History [...] Description 06/22/2025 9:00 AM EST Clinical Support [facility] [address] [place] [address] 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, GULSHAN 07/10/2025 10:00 AM EST Office Visit [facility] [address] [place] [address] Galo Fang MD [address] [place] [address] 09/21/2025 11:00 AM EST Office Visit [facility] OPTOMETRY [address] [place] [address] Paulo, Pat, OD [address] [place] [address] documented as of this encounter Visit Diagnoses Diagnosis Foreign body sensation, right eye documented in this encounter Additional Health Concerns Assessment Noted Time PHQ-9 Depression Total Score: 0 07/01/20 23 1:10 PM EST documented as of this encounter Care Teams Screedman Relationship Specialty Start Date End Date Galo Fang MD [address] [place] [address] PCP - General Internal Medicine 04/04/14 documented as of this encounter
--- OUTSIDE RECORDS SUMMARY | 2025-06-18 07:55 | XMS_ITS | Encounter Summary ---
Author Organization [employer] Address 75 [facility] 7t [place] [address] Care Team Providers Care Gsa Coordinator Name Role Phone Galo Fang MD Primary Care Provide r Reason for Visit * Reason Comments Med Refill Encounter Details Date Type Department Care Team ([facility] st Contact Info) Description 12/03/2023 Refill [facility] [address] [place] [address] Carroll Roberts MD [address] [place] [address] Uncomplicated opioid dependence (CMS/HCC) Social History Tobacco [...] Description 06/22/2025 9:00 AM EST Clinical Support [facility] [address] [place] [phone] 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, GULSHAN 07/10/2025 10:00 AM EST Office Visit [facility] [address] [place] [address] Galo Fang MD [address] [place] [address] 09/21/2025 11:00 AM EST Office Visit [facility] OPTOMETRY [address] [place] [address] Pat Bates, OD [address] [place] [address] documented as of this encounter Visit Diagnoses Diagnosis Uncomplicated opioid dependence (CMS/HCC) (HCC) documented in this encounter Additional Health Concerns Assessment Noted Time PHQ-9 Depression Total Score: 0 07/01/20 23 1:10 PM EST documented as of this encounter Care Teams Gsa Coordinator Relationship Specialty Start Date End Date Galo Fang MD [address] [place] [id number] PCP - General Internal Medicine 04/04/14 documented as of this encounter
--- NOTE | 2025-06-18 08:20 | A.OFFVIS_ITS ---
Vital Signs 06/18/25 08:21 Height 5 ft 8 in Weight 223 lb 1.725 oz BMI 33.9 BP 100/62 Blood Pressure Location Rt brachial Position Sitting Pulse 81 Pulse Source Pulse Oximeter Intake Visit Reasons: RS 06/15/25 f/u per DC Assistant Health Educator Required: Yes Assistant Health Educator Name: bjorn ortiz [phone] Allergies [facility]ulaglut[facility] ([facility] Adverse Reaction (Mild, Verified 06/18/25 08:23) Diarrhea Medication List - Last Reconciled 06/19/25 by ALEJANDRO Centeno aspirin 81 mg PO DAILY blood sugar diagnostic (FreeStyle Lite Strips) 1 strip miscellaneous TID blood-glucose meter (FreeStyle Lite Meter kit) As directed blood-glucose sensor (FreeStyle Yahaira 3 Plus Sensor device) Apply 1 new sensor every 15 days as directed to monitor blood glucose continuously. blood-glucose,latin professor,cont (FreeStyle Yahaira 3 Hodges) Use daily to monitor blood glucose levels continuously. buprenorphine-naloxone 8-2 mg (Suboxone) 1 film sublingual DAILY carvedilol 12.5 mg PO BID cholecalciferol (vitamin D3) 50 mcg PO DAILY empagliflozin (Jardiance) 25 mg PO QAM 30 days insulin degludec (Tresiba FlexTouch U-200 insulin) 80 units (0.4 mL) subcut BEDTIME insulin lispro 12 - 14 units (0.12 - 0.14 mL) subcut TID lancets (FreeStyle Lancets) As directed three time a day omeprazole 20 mg PO DAILY pen needle, diabetic (BD Ultra-Fine Gisella Pen Needle) As directed four times a day sucralfate (Carafate) 1 g PO Q6H 7 days tirzepatide (Mounjaro) 7.5 mg (0.5 mL) subcut QWEEK valsartan 80 mg PO DAILY HPI HPI RS 06/15/25 f/u per DC: Details: Nemesio is a 65-year-old male past medical history of hypertension, hyperlipidemia, diabetes, obesity, sleep apnea, not using CPAP, cardiomyopathy, bioprosthetic AVR with elevated gradiants, CHB with recent Medtronic dual chamber pacemaker placement who was found to have a 37 second run of nonsustained ventricular tachycardia on device remote monitoring, 05/13/25 at 1441. Incidently, He was seen in the ED 05/14 for leg pain and ruled out for DVT. Labs showed K 4.6, Ca+ 8.6. On 05/15/25 Mg 2.2. He trialed increased dose of carvedilol and had lightheadedness. He is back on his usual 12.5mg bid. Nuclear stress test showed mild ischemia and he now presents for follow up. Today he reports that he has been doing generally well since last visit 05/15/25. He has been doing only light physical activities. He does report shortness of breath with activity which is not entirely new. No PND, orthopnea or edema. He is not getting chest discomfort at rest or with activities. He did report some lightheadedness at the time of the NSVT event but no recurrent lightheadedness since that time. No presyncope, syncope, falls. Taking meds as directed. Certified software sales manager used. [facility] Medical History Osteoporosis History of cardiomyopathy Prosthetic valve dysfunction BMI 39.0-39.9,adult Cardiomyopathy TAMARA (obstructive sleep apnea) Opioid dependence Hypogonadism Polyarthropathy Erectile dysfunction Nephrolithiasis Depression Esophageal reflux Arthritis Asthma Hyperlipidemia LDL goal <70 Obesity due to excess calories Essential hypertension Type 2 diabetes mellitus with diabetic neuropathy, unspecified Surgical History History of heart valve replacement Hx of umbilical hernia repair Family History Father Heart disease CVD (cardiovascular disease) Mother DM2 (diabetes mellitus, type 2) Social History Household Members: None Alcohol intake: current Alcohol intake frequency: does not drink Patient Tobacco Use Status: Former Tobacco user Current occupational status: disabled Review of Systems Const All systems reviewed & are unremarkable except as noted in HPI and below ENT Denies dizziness Card Denies chest pain, Denies chest pain at rest, Denies chest pain with activity, Denies rapid heart rate, Denies pedal edema, Denies edema, Denies leg edema, Denies lightheadedness, Denies palpitations, Denies dyspnea, Reports dyspnea on exertion and Denies orthopnea Resp Denies cough, Denies dyspnea and Reports dyspnea on exertion GI Denies hematochezia and Denies change in stool character Musc Denies abnormal gait, Denies limited range of motion, Denies muscle cramps, Denies muscle weakness, Denies numbness, Denies radiating pain into limb, Denies stiffness and Denies tingling Neuro Denies abnormal gait, Denies dizziness, Denies numbness and Denies tingling Endo Denies palpitations Physical Exam Vital Signs: Last Vital Signs Pulse 81 06/18/25 08:21 BP 100/62 06/18/25 08:21 BMI result Body Mass Index 33.9 Const General: cooperative, healthy appearing, comfortable and no acute distress Orientation/consciousness: patient oriented x3 Neck Neck: Yes normal visual inspection Resp Effort & Inspection: normal respiratory effort Auscultation: clear to auscultation bilaterally, no crackles, no rales, no rhonchi and no wheezes Cardio Rate: regular rate Rhythm: regular rhythm Heart sounds: S1 normal heart sound present, S2 normal heart sound present, no gallops, no murmurs and no rubs Neuro General: patient oriented x3 Extrem General: Yes normal to inspection, No no pedal edema and No calf tenderness Psych Appearance: grossly normal Mental Status: mental status grossly normal Speech and movement: Normal speech and movement present Assessment & Plan Assessment & Plan (1) NSVT (nonsustained ventricular tachycardia): Code(s): I47.29 - Other ventricular tachycardia Category: Medical Plan: Remote pacemaker monitoring shows a 37 second run of NSVT, 05/13/2025 with reports of lightheadedness. EKG in office showed atrial sensed, ventricular paced rhythm, QTC 508 milliseconds, rate 74. No significant lab abnormalities. Last echocardiogram 03/16/2025 showed EF 60-65%. Known history of nonobstructive LAD stenosis. Pharmacological nuclear stress test done 05/24/2025 shows mild intensity basal and mid inferior lateral wall ischemia, low confidence of interpretation, EF 48%. Reviewed with Dr. Marie. Will arrange for cardiac catheterization to evaluate for obstructive CAD. Prior catheterization 2019 had shown proximal LAD 45%. Preprocedure labs ordered. Catheterization procedure reviewed with him in detail including risks. He is agreeable to proceed. Cardiology follow-up 2 weeks post cath. Continue carvedilol , aspirin and recommend use of statin. Continue remote monitoring of pacemaker to assess for recurrent arrhythmia. (2) Abnormal nuclear cardiac imaging test: Code(s): R93.1 - Abnormal findings on diagnostic imaging of heart and coronary circulation Category: Medical Plan: Abnormal nuclear stress test (3) Third degree heart block: Code(s): I44.2 - Atrioventricular block, complete Category: Medical Plan: Recent finding third-degree heart block, transferred to [facility] and underwent Medtronic dual-chamber pacemaker placement 03/20/25. Remote monitoring in use and device is functioning normally. (4) Pacemaker: Comment: Medtronic dual-chamber pacemaker placement 03/20/2025 Code(s): Z95.0 - Presence of cardiac pacemaker Category: Medical Plan: Interrogation last visit shows device is functioning normally. He has remote monitoring in use. Next office interrogation due in 5 months. (5) Coronary artery disease: Comment: Catheterization 12/21/2018 lad moderate disease, proximal LAD 45% stenosis, left circumflex mild disease, RCA mild disease. Code(s): I25.10 - Atherosclerotic heart disease of chemehuevi coronary artery without angina pectoris Category: Medical Plan: History of nonobstructive coronary artery disease. No anginal symptoms. Last EKG ventricular paced rhythm and nondiagnostic for ischemia. Recent NSVT an abnormal nuclear stress test. Cardiac catheterization ordered. (6) Status post aortic valve replacement: Code(s): Z95.2 - Presence of prosthetic heart valve Category: Surgical Plan: History of aortic stenosis, status post bioprosthetic AVR. Last echo done 03/16/2025 shows EF 60-65%, stenosis of bioprosthetic aortic valve with mean gradient 21 mmHg, ascending aorta 4.0 cm. Prior echo done 05/12/2023 had shown mean gradient 11 mmHg. No cardinal signs of severe . Those signs reviewed with him in detail. Repeat echocardiogram was planned 6 months from last. Due in September (7) Prosthetic valve dysfunction: Comment: Secondary to patient prosthesis mismatch. Mean gradient of 21 mm Hg post surgical at baseline. Code(s): T82.09XA - Other mechanical complication of heart valve prosthesis, initial encounter Category: Medical Plan: As above (8) History of cardiomyopathy: Comment: Improved after aortic valve replacement with last LVEF of 50-55% Code(s): Z86.79 - Personal history of other diseases of the circulatory system Category: Medical Plan: History of cardiomyopathy. EF improved following aortic valve replacement and neurohormonal modulation. Most recent EF 60-65 %. No signs of heart failure on examination. Continue valsartan, carvedilol, Jardiance. He has CPAP says he is not able to wear it as it causes him congestion. Instructed to wear CPAP as much as tolerated. Can discuss further with his PCP/Pulmonary provider if needed. Continue physical activity as tolerated, weight loss recommended. (9) Essential hypertension: Code(s): I10 - Essential (primary) hypertension Category: Medical Plan: Blood pressure goal less than 130/80. Blood pressure low today. Continue carve dilol and valsartan. (10) Hyperlipidemia LDL goal <70: Code(s): E78.5 - Hyperlipidemia, unspecified Category: Medical Plan: [place] LDL goal less than 70 in patient with diabetes. Is not on statin therapy for unclear reason -followed by PCP. Labs done 02/28/2025 had shown LDL 91. Recommend use of statin as long as no clear contraindication. Will forward this note to his PCP. (11) Enlarged thoracic aorta: Code(s): I77.89 - Other specified disorders of arteries and arterioles Category: Medical Plan: Ascending aorta dilated at 4.0 cm on most recent echocardiogram. Plan I discussed with the patient the findings of the stress test and the potential for obstructive coronary artery disease. We reviewed the plan for cardiac catheterization, including the procedure details and the possibility of stent placement if blockages are found. The patient was informed about the side effects of carvedilol and the decision to maintain a reduced dose. Orders: Orders Prothrombin Time INR Today I25.10 - Atherosclerotic heart disease of chemehuevi coronary artery without angina pectoris Cardiac Cath LT w PCI Today I25.10 - Atherosclerotic heart disease of chemehuevi coronary artery without angina pectoris, I47.29 - Other ventricular tachycardia, R93.1 - Abnormal findings on diagnostic imaging of heart and coronary circulation Basic Metabolic Panel Today I25.10 - Atherosclerotic heart disease of chemehuevi coronary artery without angina pectoris Complete Blood Count Auto Diff Today I25.10 - Atherosclerotic heart disease of chemehuevi coronary artery without angina pectoris Patient Instructions: - Continue taking carvedilol at 12.5mg bid as well as all other meds. - Attend the scheduled cardiac catheterization in two to three weeks. - Report any new or worsening symptoms, such as chest pain or increased shortness of breath, to the healthcare provider immediately. - Cardiology follow up 2 weeks post cath. Patient was informed and verbally consented to the use of an ambient scribe for clinic note documentation during this visit. Visit time spent on chart review, interview, assessment, orders, documentation. Coding Level of Care Code Est Pt Level 4 (64489) Complex EM visit Add On G2211 Diagnoses NSVT (nonsustained ventricular tachycardia) I47.29 Abnormal nuclear cardiac imaging test R93.1 Third degree heart block I44.2 Pacemaker Z95.0 Coronary artery disease I25.10 Status post aortic valve replacement Z95.2 Prosthetic valve dysfunction T82.09XA History of cardiomyopathy Z86.79 Essential hypertension I10 Hyperlipidemia LDL goal <70 E78.5 Enlarged thoracic aorta I77.89 Time Spent (min) 36
[2025-06-18 08:21] VITALS: BP 100/62; PULSE 81; BMI 33.9
== END 2025-06-18 09:01 | disposition home or self-care (01) ==
LOC: HO.HCS 07:53
PROVIDERS: PCP Internal Medicine; Visit Provider Nurse Practitioner Family
DX: I47.29 Other ventricular tachycardia (principal); R93.1 Abnormal findings on diagnostic imaging of heart and coronary circulation; I44.2 Atrioventricular block, complete; Z95.0 Presence of cardiac pacemaker; I25.10 Atherosclerotic heart disease of native coronary artery without angina pectoris; Z95.2 Presence of prosthetic heart valve; T82.09XA Other mechanical complication of heart valve prosthesis, initial encounter; Z86.79 Personal history of other diseases of the circulatory system; I10 Essential (primary) hypertension; E78.5 Hyperlipidemia, unspecified; I77.89 Other specified disorders of arteries and arterioles
CPT/HCPCS: 99214; G2211

== ENCOUNTER → 2025-06-18 07:52 | Outpatient (BNVA) | payer MEDICARE, MEDICAID, SELFPAY | PROVIDERS: PCP Internal Medicine; Visit Provider Nurse Practitioner Family | DX: I10 Essential (primary) hypertension (principal); I47.29 Other ventricular tachycardia; Z95.0 Presence of cardiac pacemaker; R93.1 Abnormal findings on diagnostic imaging of heart and coronary circulation; Z95.2 Presence of prosthetic heart valve; I44.2 Atrioventricular block, complete; Z87.891 Personal history of nicotine dependence; Z79.82 Long term (current) use of aspirin; E78.5 Hyperlipidemia, unspecified | CPT/HCPCS: 99212 ==

== ENCOUNTER 2025-06-22 09:37 | Outpatient (REF) | payer MEDICARE, MEDICAID, SELFPAY ==
--- OUTSIDE RECORDS SUMMARY | 2025-06-22 09:00 | XMS_ITS | Encounter Summary ---
Author Organization [employer] Address [address] [facility] 7t [place] [address] Care Team Providers Care Chief Projectionist Name Role Phone Galo Fang MD Primary Care Provide r Reason for Visit * Reason Comments OBAT F/U Encounter Details Date Type Department Care Team ([facility] st Contact Info) Description 06/22/2025 9:00 AM EST Office Visit [facility] MEDICINE [address] [place] [address] Carroll Roberts MD [address] [place] [address] Opioid type dependence, continuous (CMS/HCC) (HCC) (Primary Dx) Social History Tobacco Use Types [...] Upcoming Encounters Date Type Department Care Team ([facility] st Contact Info) Description 07/10/2025 10:00 AM EST Office Visit [facility] MEDICINE [address] [place] [address] Galo Fang MD [address] [place] [address] 09/14/2025 9:00 AM EST Office Visit [facility] MEDICINE [address] [place] [address] Carroll Roberts MD [address] [place] [address] 09/21/2025 11:00 AM EST Office Visit [facility] OPTOMETRY [address] [place] [address] Pat Bates, OD [address] [place] [address] documented as of this encounter Goals Goal Patient Goal Type Associated Problems Recent Progress Patient-Stated? Author Increase coping skills to promote long-term recovery and improve ability to perform daily activities General On track( 025 9:26 AM EDT) No 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, GULSHAN documented as of this encounter Procedures Procedure Name Priority Date/Time Associated Diagnosis Comments POCT FRANCESCA-14 URINE DRUG SCREEN Routine 06/22/2025 9:15 AM EST Opioid type dependence, continuous (CMS/HCC) (HCC) documented in this encounter Results * (ABNORMAL) POCT FRANCESCA-14 Urine Drug Screen (06/22/2025 9:15 AM EST) THC Negative Negative Cocaine Screen, Urine Negative Negative Opiate Screen, Urine Negative Negative Methamphetamine Screen Urine Negative Negative Amphetamine Screen, Urine Negative Negative Benzodiazepines Screen, Urine Negative Negative Barbiturate Screen, Urine Negative Negative Methadone Screen, Urine Negative Negative Buprenophine Screen, Urine Positive(A) Negative TCA, Urine Negative Negative MDMA Urine Negative Negative ng/mL Oxycodone Screen, Urine Negative Negative Phencyclidine (PCP), Urine Negative Negative Fentanyl, Urine Negative Negative Urine Urine specimen obtained by clean catch procedure / Unknown 06/22/2025 9:15 AM EST Carroll Roberts MD POINT OF CARE TEST ENTER/EDIT ORDERABLES Final Result documented in this encounter Visit Diagnoses Diagnosis Opioid type dependence, continuous (CMS/HCC) (HCC)- Primary Opioid type dependence, continuous documented in this encounter Additional Health Concerns Assessment Noted Time PHQ-9 Depression Total Score: 0 04/10/20 25 8:59 AM EDT documented as of this encounter Care Teams Chief Projectionist Relationship Specialty Start Date End Date Galo Fang MD [address] [place] [phone] PCP - General Internal Medicine 04/04/14 documented as of this encounter
[2025-06-22 09:49] LABS: MANUAL DIFF FLAG NO
[2025-06-22 10:33] LABS: INTERNATIONAL NORM RATIO 1.1 (0.9-1.1); Prothrombin Time 13.0 SEC (11.2-13.5)
[2025-06-22 10:41] LABS: Hematocrit 38.6 % (42.0-52.0); Hemoglobin 12.6 g/dl (14.0-18.0); Imm Gran Abs Auto 0.01 X10*3/uL (0.00-0.03); Imm Gran Pct Auto 0.2 % (0.0-0.4); Lymphocytes Absolute Auto 1.2 X10*3/uL (1.2-4.9); Mean Corpuscular HGB Conc 32.6 g/dl (31.0-36.0); Mean Corpuscular Hemoglobin 28.1 pg (27.0-33.0); Mean Corpuscular Volume 86.2 fL (80.0-98.0); NRBC Abs Auto 0.000 X10*3/uL (0.0-0.012); NRBC Pct Auto 0.0 /100WBC (0.0-0.2); Platelet Count 202 X10*3/uL (160-400); Red Blood Count 4.48 X10*6/uL (4.60-5.80); White Blood Count 4.9 X10*3/uL (4.8-10.8)
--- OUTSIDE RECORDS SUMMARY | 2025-06-22 11:01 | XMS_ITS | Encounter Summary ---
Author Organization [employer] Address 75 [facility] 7t [place] [address] Care Team Providers Care Oil Painter Name Role Phone Galo Fang MD Primary Care Provide r Reason for Visit * Reason Comments Med Refill Encounter Details Date Type Department Care Team ([facility] st Contact Info) Description 09/08/2024 Refill [facility] MEDICINE [address] [place] [address] Carroll Roberts MD [address] [place], [place] [phone] Uncomplicated opioid dependence (CMS/HCC) Social History Tobacco [...] Upcoming Encounters Date Type Department Care Team ([facility] st Contact Info) Description 07/10/2025 10:00 AM EST Office Visit [facility] MEDICINE [address] [place] [address] Galo Fang MD [address] [place] [address] 09/14/2025 9:00 AM EST Office Visit [facility] MEDICINE [address] [place] [address] Carroll Roberts MD [address] [place] [address] 09/21/2025 11:00 AM EST Office Visit [facility] OPTOMETRY [address] [place] [address] Pat Bates, OD [address] [place] [address] documented as of this encounter Visit Diagnoses Diagnosis Uncomplicated opioid dependence (CMS/HCC) (HCC) documented in this encounter Additional Health Concerns Assessment Noted Time PHQ-9 Depression Total Score: 0 05/26/20 24 9:56 AM EDT documented as of this encounter Care Teams Oil Painter Relationship Specialty Start Date End Date Galo Fang MD [address] [place] [address] PCP - General Internal Medicine 04/04/14 documented as of this encounter
--- OUTSIDE RECORDS SUMMARY | 2025-06-22 11:01 | XMS_ITS | Encounter Summary ---
Author Organization [employer] Address [address] [place] [address] 7 [place] [address] Care Team Providers Care Health Coach Name Role Phone Galo Fang MD Primary Care Provide r Reason for Visit * Reason Comments Med Refill Encounter Details Date Type Department Care Team (Late Contact Info) Description 11/03/2022 Refill [facility] MEDICINE [address] [place] [phone] Jess Barriga MD [address] [place] [address] [phone] Mild intermittent asthma without complication Social History [...] Department Care Team (Late Contact Info) Description 07/10/2025 10:00 AM EST Office Visit [facility] MEDICINE [address] [place] [address] Galo Fang MD [address] [place] [address] [phone] 09/14/2025 9:00 AM EST Office Visit [facility] MEDICINE [address] [place] [phone] Carroll Roberts MD [address] [place] [phone] 09/21/2025 11:00 AM EST Office Visit [facility] OPTOMETRY [address] [place], [place] [phone] Pat Bates, OD [address] [place], [place] [phone] documented as of this encounter Visit Diagnoses Diagnosis Mild intermittent asthma without complication documented in this encounter Care Teams Health Coach Relationship Specialty Start Date End Date Galo Fang MD [address] [place], [place] [phone] PCP - General Internal Medicine 04/04/14 documented as of this encounter
--- OUTSIDE RECORDS SUMMARY | 2025-06-22 11:01 | XMS_ITS | Encounter Summary ---
Author Organization [employer] Address [address] [facility] 7t [place] [address] Care Team Providers Care Net Developer Consultant Name Role Phone Galo Fang MD Primary Care Provide r Encounter Details Date Type Department Care Team ([facility] st Contact Info) Description 05/15/2025 Results Follow-Up [facility] [address] [place], [place] [phone] Susan Arriaga MD [address] [place], [place] [phone] D Dimer High Sensitivity Social History Tobacco [...] Care Team (Late st Contact Info) Description 07/10/2025 10:00 AM EST Office Visit [facility] MEDICINE [address] [place] [address] Galo Fang MD [address] [place] [address] 09/14/2025 9:00 AM EST Office Visit [facility] MEDICINE [address] [place] [address] Carroll Roberts MD [address] [place] [address] 09/21/2025 11:00 AM EST Office Visit [facility] OPTOMETRY [address] [place] [address] Pat Bates, OD [address] [place] [address] documented as of this encounter Goals Goal Patient Goal Type Associated Problems Recent Progress Patient-Stated? Author Increase coping skills to promote long-term recovery and improve ability to perform daily activities General On track( 9:26 AM EDT) No 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, GULSHAN documented as of this encounter Visit Diagnoses Not on filedocumented in this encounter Additional Health Concerns Assessment Noted Time PHQ-9 Depression Total Score: 0 04/10/20 8:59 AM EDT documented as of this encounter Care Teams Net Developer Consultant Relationship Specialty Start Date End Date Galo Fang MD [address] [place] [address] PCP - General Internal Medicine 04/04/14 documented as of this encounter
--- OUTSIDE RECORDS SUMMARY | 2025-06-22 11:01 | XMS_ITS | Encounter Summary ---
Author Organization [employer] Address [address] [facility] 7[address] [place] [address] Care Team Providers Care Dobie Worker Name Role Phone Galo Fang MD Primary Care Provide r Encounter Details Date Type Department Care Team ([facility] Contact Info) Description 06/22/2025 Orders Only GENERIC EXTERNAL DATA DEPARTMENT Provider, [...] Description 07/10/2025 10:00 AM EST Office Visit [facility] [address] [place] [address] Galo Fang MD [address] [place] [address] 09/14/2025 9:00 AM EST Office Visit [facility] [address] [place] [address] Carroll Roberts MD [address] [place] [address] 09/21/2025 11:00 AM EST Office Visit [facility] [address] [place] [address] Pat Bates, OD [address] [place] [address] documented as of this encounter Goals Goal Patient Goal Type Associated Problems Recent Progress Patient-Stated? Author Increase coping skills to promote long-term recovery and improve ability to perform daily activities General On track( 025 9:26 AM EDT) Frieda Trevino RN documented as of this encounter Procedures Procedure Name Priority Date/Time Associated Diagnosis Comments CBC WITH AUTO DIFFERENTIAL Routine 06/22/2025 9:47 AM EST PROTHROMBIN TIME-INR Routine 06/22/2025 9:47 AM EST documented in this encounter Results * (ABNORMAL) CBC auto differential (06/22/2025 9:47 AM EST) White Blood Count 4.9 4.8 - 10.8 X10*3/uL [facility] Red Blood Count 4.48(L) 4.60 - 5.80 X10*6/uL [facility] Hemoglobin 12.6(L) 14.0 - 18.0 g/dl [facility] Hematocrit 38.6(L) 42.0 - 52.0 % [facility] Mean Corpuscular Volume 86.2 80.0 - 98.0 fL [facility] Mean Corpuscular Hemoglobin 28.1 27.0 - 33.0 pg [facility] Mean Corpuscular HGB Conc 32.6 31.0 - 36.0 g/dl [facility] Red Cell Distribution Width 13.5 11.0 - 16.0 % [facility] Platelet Count 202 160 - 400 X10*3/uL [facility] Mean Platelet Volume 9.3(L) 9.4 - 12.4 fL [facility] Neutrophils Percent Auto 57.6 45 - 73 % [facility] Imm Gran Pct Auto 0.2 0.0 - 0.4 % [facility] Lymphocytes Percent Auto 24.7 20 - 40 % [facility] Monocytes Percent Auto 11.8(H) 2 - 11 % [facility] Eosinophils Percent Auto 4.7(H) 0 - 4 % [facility] Basophils Percent Auto 1.0 0 - 2 % [facility] NRBC Pct Auto 0.0 0.0 - 0.2 /100WBC [facility] Neutrophils Absolute Auto 2.8 2.0 - 8.3 x10*3/uL [facility] Imm Gran Abs Auto 0.01 0.00 - 0.03 X10*3/uL [facility] Lymphocytes Absolute Auto 1.2 1.2 - 4.9 X10*3/uL [facility] Monocytes Absolute Auto 0.6 0.1 - 1.2 X10*3/uL [facility] Eosinophils Absolute Auto 0.2 0.0 - 0.4 X10*3/uL [facility] Basophils Absolute Auto 0.1 0.0 - 0.2 X10*3/uL [facility] NRBC Abs Auto 0.000 0.0 - 0.012 X10*3/uL [facility] 06/22/2025 9:47 AM EST 06/22/2025 9:47 AM EST Generic External Data Provider LAB BLOOD ORDERAB LES Final Result Performing Organization Address [facility] de Phone Number [facility] [address] [place] [phone] * Prothrombin Time-INR (06/22/2025 9:47 AM EST) Prothrombin Time 13.0 11.2 - 13.5 SEC [facility] INTERNATIONAL NORM RATIO 1.1 0.9 - 1.1 [facility] Comment:INTERNATIONAL NORMAL IZED RATIO (INR) REFERENCE RANGES Reference RangeFor patients not on anticoagulant therapy: 0.9 - 1.1INR ranges for oral anticoagulanttherapy:For prevention and treatment of venous thrombosis and pulmonary embolism: 2.0 - 3.0For acute myocardial infarction with aspirin therapy: 2.0 - 3.0For acute myocardial infarction without aspirin therapy: 3.0 - 4.0For patients with mechanical prosthetic heart valves: 2.5 - 3.5 06/22/2025 9:47 AM EST 06/22/2025 9:47 AM EST Generic External Data Provider LAB BLOOD ORDERAB LES Final Result Performing Organization Address [facility] de Phone Number [facility] [address] [place] [phone] documented in this encounter Visit Diagnoses Not on filedocumented in this encounter Additional Health Concerns Assessment Noted Time PHQ-9 Depression Total Score: 0 04/10/20 25 8:59 AM EDT documented as of this encounter Care Teams Dobie Worker Relationship Specialty Start Date End Date Galo Fang MD [address] [place] [phone] PCP - General Internal Medicine 04/04/14 documented as of this encounter
--- OUTSIDE RECORDS SUMMARY | 2025-06-22 11:01 | XMS_ITS | Encounter Summary ---
Author Organization [employer] Address [address] [place] [address] [address] [place] [address] Care Team Providers Care Crop Quantitative Geneticist Name Role Phone Galo Fang MD Primary Care Provide r Reason for Visit * Reason Comments Med Refill Encounter Details Date Type Department Care Team (Late Contact Info) Description 11/07/2022 Refill [facility] [address] [place] [phone] Carroll Roberts MD [address] [place] [address] [phone] Uncomplicated opioid dependence (CMS/HCC) Social History Tobacco [...] Description 07/10/2025 10:00 AM EST Office Visit [facility] [address] [place] [phone] Galo Fang MD [address] [place] [address] [phone] 09/14/2025 9:00 AM EST Office Visit [facility] [address] [place] [phone] Carroll Roberts MD [address] [place] [address] 09/21/2025 11:00 AM EST Office Visit [facility] [address] [place], [place] [phone] Pat Bates, OD [address] [place] [address] documented as of this encounter Visit Diagnoses Diagnosis Uncomplicated opioid dependence (CMS/HCC) (HCC) documented in this encounter Care Teams Crop Quantitative Geneticist Relationship Specialty Start Date End Date Galo Fang MD [address] [place], [place] [phone] PCP - General Internal Medicine 04/04/14 documented as of this encounter
--- OUTSIDE RECORDS SUMMARY | 2025-06-22 11:01 | XMS_ITS | Encounter Summary ---
Author Organization [employer] Address [address] [place] [address] [address] [place] [address] Care Team Providers Care Quiller Hand Name Role Phone Galo Fang MD Primary Care Provide r Reason for Visit * Reason Onset Date Comments Med Refill TP 01/02/2023 Encounter Details Date Type Department Care Team (Late st Contact Info) Description 01/02/2023 Telephone [facility] [address] [place] [phone] Carroll Roberts MD [address] [place], [place] [phone] Med Refill; TP Social History Tobacco Use [...] Description 07/10/2025 10:00 AM EST Office Visit [facility] [address] [place] [address] Galo Fang MD [address] [place] [address] 09/14/2025 9:00 AM EST Office Visit [facility] [address] [place] [address] Carroll Roberts MD [address] [place] [address] 09/21/2025 11:00 AM EST Office Visit [facility] [address] [place] [address] Pat Bates, CHRISTINA [address] [place] [address] documented as of this encounter Visit Diagnoses Diagnosis Uncomplicated opioid dependence (CMS/HCC) (HCC) documented in this encounter Care Teams Quiller Hand Relationship Specialty Start Date End Date Galo Fang MD [address] [place] [phone] PCP - General Internal Medicine 04/04/14 documented as of this encounter
--- OUTSIDE RECORDS SUMMARY | 2025-06-22 11:01 | XMS_ITS | Encounter Summary ---
Author Organization [employer] Address [address] [place] [address] [address] [place] [address] Care Team Providers Care Corporate Compliance Manager Name Role Phone Galo Fang MD Primary Care Provide r Reason for Visit * Reason Comments Med Refill Encounter Details Date Type Department Care Team (Late Contact Info) Description 11/12/2022 Refill [facility] [address] [place] [address] Galo Fang MD [address] [place] [phone] Gastroesophageal reflux disease, unspecified whether esophagitis present [...] Description 07/10/2025 10:00 AM EST Office Visit [facility] [address] [place] [phone] Galo Fang MD [address] [place] [address] 09/14/2025 9:00 AM EST Office Visit [facility] [address] [place] [phone] Carroll Roberts MD [address] [place], [place] [phone] 09/21/2025 11:00 AM EST Office Visit [facility] [address] [place], [place] [phone] Pat Bates, OD [address] [place] [address] documented as of this encounter Visit Diagnoses Diagnosis Gastroesophageal reflux disease, unspecified whether esophagitis present documented in this encounter Care Teams Corporate Compliance Manager Relationship Specialty Start Date End Date Galo Fang MD [address] [place], [place] [phone] PCP - General Internal Medicine 04/04/14 documented as of this encounter
--- OUTSIDE RECORDS SUMMARY | 2025-06-22 11:01 | XMS_ITS | Encounter Summary ---
Author Organization [employer] Address [address] [facility] [address] [place] [address] Care Team Providers Care Vaccine Key Customer Leader Name Role Phone Galo Fang MD Primary Care Provide r Reason for Visit * Reason Onset Date Comments Med Refill 06/18/2025 Encounter Details Date Type Department Care Team (Late st Contact Info) Description 06/18/2025 Refill [facility] [address] [place] [address] 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, RN Opioid use disorder in remission Social History Tobacco Use Types Packs/Day Years Used Date Smoking Tobacco: Former Cigarettes Passive Smoke Exposure: Past Smokeless Tobacco: Never Depression Answer Date Recorded Patient Health Questionnaire-9 Score 0 04/10/2025 Patient Health Questionnaire-9 Score 0 04/10/2025 Last PHQ-9: Questionnaire Data Not on file 0 04/10/2025 Housing Stability Answer Date Recorded What is your housing situation today? I have arnlado jaimes 07/01/[address] you [...] Description 07/10/2025 10:00 AM EST Office Visit [facility] [address] [place] [address] Galo Fang MD [address] [place] [address] 09/14/2025 9:00 AM EST Office Visit [facility] [address] [place] [address] Carroll Roberts MD [address] [place] [address] 09/21/2025 11:00 AM EST Office Visit [facility] [address] [place] [address] Paulo, Pat, OD [address] [place] [address] documented as of this encounter Goals Goal Patient Goal Type Associated Problems Recent Progress Patient-Stated? Author Increase coping skills to promote long-term recovery and improve ability to perform daily activities General On track( 025 9:26 AM EDT) No 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 RN documented as of this encounter Visit Diagnoses Diagnosis Opioid use disorder in remission documented in this encounter Additional Health Concerns Assessment Noted Time PHQ-9 Depression Total Score: 0 04/10/20 8:59 AM EDT documented as of this encounter Care Teams Vaccine Key Customer Leader Relationship Specialty Start Date End Date Galo Fang MD [address] [place] [address] PCP - General Internal Medicine 04/04/14 documented as of this encounter
--- OUTSIDE RECORDS SUMMARY | 2025-06-22 11:01 | XMS_ITS | Clinical Summary ---
Author Organization [employer] Address [address] [facility] [place] [address] [place] [address] Care Team Providers Care Brazing Machine Feeder Name Role Phone Galo Fang MD Primary [...] 2 WEEKS 023 Active Continuous Blood Gluc Press Assistant And Feeder (FreeStyle Yahaira 2 [place]) device USE DIRECTED 023 Active FREESTYLE LITE [...] polyneuropathy, with long-term current use of insulin ([facility]) Take 1 tablet (20 mg) by mouth Once per day. 30 tablet 6 025 Active polyethylene glycol, PEG, 3350 (GaviLAX) 17 GM/SCOOP powder TAKE (17G) BY ORAL ROUTE EVERY DAY MIXED WITH 8 OZ. WATER, JUICE, COFFEE OR TEA 510 g 2 025 Active aspirin 81 MG EC tablet Take 1 tablet by mouth Once per day. Active omeprazole (PriLOSEC) [address] capsuleIndicati ons:Gastroesoph ageal reflux disease without esophagitis TAKE 1 CAPSULE BY MOUTH EVERY DAY IN THE MORNING 90 capsule 1 025 Active insulin degludec (Tresiba FlexTouch) 200 UNIT/ML injectionIndica tions:Type 2 diabetes mellitus with diabetic polyneuropathy, with long-term current use of insulin ([facility]) Inject 80 Units under the skin at bedtime. 9 mL 3 025 2025 Active Buprenorphine HCl-Naloxone HCl (Suboxone) 8-2 MG SL filmIndications :Opioid use disorder in remission Place 1 Film under the tongue Once per day. Do not start before June 22, 2025. 28 Film 2 025 2025 Active buprenorphine-n aloxone (Suboxone) 2-0.5 MG per sublingual filmIndications :Opioid use disorder in remission Place 1 Film under the tongue Once per day. Do not start before June 22, 2025. 28 Film 2 025 2025 Active Buprenorphine HCl-Naloxone HCl (Suboxone) 8-2 MG SL filmIndications :Opioid use disorder in remission Place 1 Film under the tongue Once per day. 28 Film 2 025 2024 Discontinued(R eorder (will not trigger notification to Pharmacy)) buprenorphine-n aloxone (Suboxone) 2-0.5 MG per sublingual filmIndications :Opioid use disorder in remission Place 1 Film under the tongue Once per day. 28 Film 2 025 2024 Discontinued(R eorder (will not trigger notification to Pharmacy)) Tresiba FlexTouch 200 UNIT/ML injection INJECT 80 UNITS AT BEDTIME 9 mL 3 025 2024 Discontinued(D uplicate order (will not trigger notification to Pharmacy)) Active Problems Problem Noted Date Diagnosed Date Hospital discharge follow-up 04/10/2025 Assessment & Plan (04/10/2025 9:13 AM EDT): Pt here for a HDF Admitted to [facility] from 03/18-03/21/2025 after he presented with c/o [...] acute bony abnormality. Pt was seen by [facility]' Counselor 05/17/2024 work up in progress Assessment & [...] and L1-L2 levels. Under the care of [facility] pain Management, they recommended [...] LS Spine, [facility] & Plan (04/06/2023 1:21 PM [...] PSA 09/05/2024 : Normal, Colonoscopy: 07/29/2018 at [facility] diverticulosis Assessment & Plan (09/12/2024 9:25 AM EST): PSA 04/06/2023 : Normal, repeat ordered Colonoscopy: 07/29/2018 at [facility] diverticulosis Assessment & Plan (07/01/2023 1:02 PM EST): PSA 04/06/2023 : Normal Colonoscopy: 07/29/2018 at [facility] diverticulosis Assessment & Plan (04/06/2023 1:22 PM EDT): Colonoscopy: 07/29/2018 at [facility] diverticulosis Aortic valve stenosis 07/17/2022 Assessment & [...] of severe aortic valve stenosis. Echocardiogram from 2016 showed moderate aortic stenosis and EF 55-60% [...] exam was last done by Dr. Littlejohn (service greeter) No diabetic retinopathy. 07/31/2024 Microalbumin checked on: 11/29/2023 was: 7 Pt is on ARB (lisinopril caused him itchy throat and ? angioedema ? ) . Foot check risk of zero Pt reports compliance with Asa 81 mg po daily Plan: As per Top Coater Pt advised to: adhere to diabetic diet [...] exam was last done by Dr. Littlejohn (service greeter) No diabetic retinopathy. 07/31/2024 Microalbumin checked on: 11/29/2023 was: 7 Pt is on ARB (lisinopril caused him itchy throat and ? angioedema ? ) . Foot check risk of zero Pt reports compliance with Asa 81 mg po daily Plan: As per Top Coater Pt advised to: adhere to diabetic diet [...] exam was last done by Dr. Littlejohn (service greeter) No diabetic retinopathy. 07/31/2024 Microalbumin checked on: 11/29/2023 was: 7 Pt is on ARB (lisinopril caused him itchy throat and ? angioedema ? ) . Foot check risk of zero Pt reports compliance with Asa 81 mg po daily Plan: as per Top Coater Pt advised to: adhere to diabetic diet [...] exam was last done by Dr. Littlejohn (service greeter) No diabetic retinopathy. Microalbumin checked on: 11/29/2023 was: 7 Pt is no longer on an WALDEMAR inhibitor. (lisinopril caused him itchy throat and ? angioedema ? ) . Foot check risk of zero Pt reports compliance with Asa 81 mg po daily Plan: as per Top Coater Pt advised to: adhere to diabetic diet [...] exam was last done by Dr. Littlejohn (service greeter) No diabetic retinopathy. Microalbumin checked on: 01/14/2021 was: 22 Pt is no longer on an WALDEMAR inhibitor. (lisinopril caused him itchy throat and ? angioedema ? ) . Foot check risk of zero Pt reports compliance with Asa 81 mg po daily Plan: as per Top Coater Pt advised to: adhere to diabetic diet [...] exam was last done by Dr. Littlejohn (service greeter) No diabetic retinopathy. Microalbumin checked on: 01/14/2021 was: 22 Pt is no longer on an WALDEMAR inhibitor. (lisinopril caused him itchy throat and ? angioedema ? ) . Will repeat Foot check risk of zero Pt reports compliance with Asa 81 mg po daily Plan: as per Top Coater Pt advised to: adhere to diabetic diet [...] exam was last done by Dr. Littlejohn (service greeter) No diabetic retinopathy. Microalbumin checked on: 01/14/2021 was: 22 Pt is no longer on an WALDEMAR inhibitor. (lisinopril caused him itchy throat and ? angioedema ? ) Foot check risk of zero Pt reports compliance with Asa 81 mg po daily Plan: as per Top Coater Pt advised to: adhere to diabetic diet check your blood sugars regularly check your feet on a daily basis f/u 3 months Depressive disorder 08/16/1959 Assessment & Plan (09/12/2024 1:10 PM EST): Pt with Hx of Depression In the past used to follow with Dr Bar, Pt has a editorial writer pet who he attributes the fact that [...] Encounters Date Type Department Care Team Description 06/22/2025 9:00 AM EST Office Visit [facility] MEDICINE [address] [place] [address] Carroll Roberts MD Opioid type dependence, continuous (CMS/HCC) (HCC) (Primary Dx) 06/22/2025 Orders Only GENERIC EXTERNAL DATA DEPARTMENT Provider, Generic External Data 06/22/2025 Travel 06/18/2025 Refill [facility] MEDICINE [address] [place] [address] Fireda Richey, GULSHAN Opioid use disorder in remission 06/08/2025 Refill [facility] MEDICINE [address] [place] [address] Galo Fang MD Type 2 diabetes mellitus with diabetic polyneuropathy, with long-term current use of insulin (HCC) 05/24/2025 Orders Only [facility] External Provider, [facility] 05/17/2025 Orders Only [facility] External Provider, [facility] 05/15/2025 Orders Only GENERIC EXTERNAL DATA DEPARTMENT Provider, Generic External Data 05/15/2025 Results Follow-Up [facility] MED & PEDS [address] [place] [address] Susan Arriaga MD D Dimer High Sensitivity 05/14/2025 Telephone [facility] MEDICINE [address] [facility] [place] [address] Galo Fang MD Call Back Request 05/14/2025 Orders Only [facility] [address] [place] [address] Susan Arriaga MD 05/14/2025 Telephone [facility] PEDIATRICS [address] [place] [address] Galo Fang MD CRITICAL LAB 05/11/2025 4:00 PM EDT Office Visit [facility] WALK-IN CENTER [address] [facility] [place] [address] Susan Arriaga MD Pain of left calf (Primary Dx) 05/11/2025 Travel 04/30/2025 Orders Only GENERIC EXTERNAL DATA DEPARTMENT Provider, Generic External Data 04/30/2025 Telephone [facility] MEDICINE [address] [place] [address] Galo Fang MD June04/24/2025 Travel 04/16/2025 Refill [facility] MEDICINE [address] [facility] [place] [address] Galo Fang MD Gastroesophageal reflux disease without esophagitis 04/11/2025 Refill [facility] MEDICINE [address] [place] [address] Galo Fang MD 04/10/2025 9:30 AM EDT Office Visit [facility] MED[facility]INE [address] [facility] [place] [address] Galo Fang MD Hospital discharge follow-up (Primary Dx); Type 2 diabetes mellitus with diabetic polyneuropathy, with long-term current use of insulin ([facility]); Essential hypertension; History of aortic valve replacement 04/10/2025 Travel 04/09/2025 Telephone [facility] MEDICINE [address] [place] [phone] Galo Fang MD CHART PREP 03/30/2025 9:[address] [facility] [address] [place] [address] 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, RN Opioid use disorder in remission 03/30/2025 Travel 03/23/[address] [address] Deidre Anton RN Opioid use disorder in remission 03/22/2025 Patient Outreach [address] [address] Galo Fang MD Transition Of Care (Tcm) (HDF scheduled) from Last 3 Months Immunizations Immunization Administration [...] 10:00 AM EST Office Visit [facility] MEDICINE [address] [place] [address] Galo Fang MD [address] [place] [address] 09/14/2025 9:00 AM EST Office Visit [facility] MEDICINE [address] [place] [address] Carroll Roberts MD [address] [place] [address] 09/21/2025 11:00 AM EST Office Visit [facility] OPTOMETRY [address] [place] [address] Paulo, Pat, OD [address] [place] [address] Health Maintenance Due Date Last Done Comments [...] history exists Depression Screening 04/10/2026 04/10/2025, 04/10/20 Tobacco Screening [...] 025 9:26 AM EDT) No 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, lead producer Procedure Name Priority Date/Time Associated Diagnosis Comments CBC WITH AUTO DIFFERENTIAL Routine 06/22/2025 9:47 AM EST PROTHROMBIN TIME-INR Routine 06/22/2025 9:47 AM EST POCT FRANCESCA-14 URINE DRUG SCREEN Routine 06/22/2025 9:15 AM EST Opioid type dependence, continuous (CMS/HCC) (HCC) STRESS TEST WITH MYOCARDIAL PERFUSION Routine 05/24/2025 [...] polyneuropathy, with long-term current use of insulin ([facility]) POCT GLUCOSE Routine 04/10/2025 9:00 AM EDT Type 2 diabetes mellitus with diabetic polyneuropathy, with long-term current use of insulin ([facility]) LIPID PANEL, STANDARD Routine 02/28/2025 10:04 AM EDT ALBUMIN, RANDOM URINE W/CREATININE Routine 02/28/2025 10:02 AM EDT HEPATITIS PANEL, GENERAL Routine 06/07/2024 10:41 AM EDT HM COLONOSCOPY Routine 07/29/2018 from Last 3 Months or Most Recently Relevant to Health Maintenance Results * (ABNORMAL) CBC auto differential (06/22/2025 9:47 AM EST) Only the most recent of3 resultswithin the time period is included. White Blood Count 4.9 4.8 - 10.8 X10*3/uL [facility] Red Blood Count 4.48(L) 4.60 - 5.80 X10*6/uL [facility] Hemoglobin 12.6(L) 14.0 - 18.0 g/dl [facility] Hematocrit 38.6(L) 42.0 - 52.0 % [facility] Mean Corpuscular Volume 86.2 80.0 - 98.0 fL [facility] Mean Corpuscular Hemoglobin 28.1 27.0 - 33.0 pg [facility] Mean Corpuscular HGB Conc 32.6 31.0 - 36.0 g/dl [facility] Red Cell Distribution Width 13.5 11.0 - 16.0 % [facility] Platelet Count 202 160 - 400 X10*3/uL [facility] Mean Platelet Volume 9.3(L) 9.4 - 12.4 fL [facility] Neutrophils Percent Auto 57.6 45 - 73 % [facility] Imm Gran Pct Auto 0.2 0.0 - 0.4 % [facility] Lymphocytes Percent Auto 24.7 20 - 40 % [facility] Monocytes Percent Auto 11.8(H) 2 - 11 % [facility] Eosinophils Percent Auto 4.7(H) 0 - 4 % [facility] Basophils Percent Auto 1.0 0 - 2 % [facility] NRBC Pct Auto 0.0 0.0 - 0.2 /100WBC [facility] Neutrophils Absolute Auto 2.8 2.0 - 8.3 x10*3/uL [facility] Imm Gran Abs Auto 0.01 0.00 - 0.03 X10*3/uL [facility] Lymphocytes Absolute Auto 1.2 1.2 - 4.9 X10*3/uL [facility] Monocytes Absolute Auto 0.6 0.1 - 1.2 X10*3/uL [facility] Eosinophils Absolute Auto 0.2 0.0 - 0.4 X10*3/uL [facility] Basophils Absolute Auto 0.1 0.0 - 0.2 X10*3/uL [facility] NRBC Abs Auto 0.000 0.0 - 0.012 X10*3/uL [facility] 06/22/2025 9:47 AM EST 06/22/2025 9:47 AM EST us Generic External Data Provider LAB BLOOD ORDERAB LES Final Result [facility] [address] [place] [phone] * Prothrombin Time-INR (06/22/2025 9:47 AM EST) Only the most recent of2 resultswithin the time period is included. Prothrombin Time 13.0 11.2 - 13.5 SEC [facility] INTERNATIONAL NORM RATIO 1.1 0.9 - 1.1 [facility] Comment:INTERNATIONAL NORMAL IZED RATIO (INR) [...] 9:47 AM EST 06/22/2025 9:47 AM EST us Generic External Data Provider LAB BLOOD ORDERAB LES Final Result Performing Organization Address City/State/[facility] Co de Phone Number [facility] [address] [place] [phone] * (ABNORMAL) POCT FRANCESCA-14 Urine Drug Screen [...] procedure / Unknown 06/22/2025 9:15 AM EST us Carroll Roberts MD POINT OF CARE TEST ENTER/EDIT ORDERABLES Final Result * Stress test with myocardial perfusion (05/24/2025 9:52 AM EDT) 05/24/2025 9:52 AM EDT Narrative [facility] IMAGING - 05/25/2025 4:07 PM EDT [address] [address] Nuclear Medicine Report Signed Patient: Nemesio Brown MR#: [id number] : 1960 Acct:[id number] Age/Sex: 64 / M ADM Date: 05/24/25 Loc: .[facility] Attending Dr: Anastasiia ALLEN Ordering Physician: Anastasiia Olson Date of Service: 05/24/25 Procedure(s): NM cardiolite stress test Accession Number(s): [id number] cc: Anastasiia Olson; Galo rPajapati MD Reason for Exam: I47.29 - Other [...] 05/25/25 1604 DD/ 0952 TD/TT: 05/25/25 1200 Administrative Library Assistant: Procedure Note Donotuseinterpreter, Image - 05/25/2025 [place] [address] Nuclear Medicine Report Signed Patient: Josee BrownR#: [id number] : 1960Acct:[id number] Age/Sex: 64 / MADM Date: 05/24/25 Loc: [facility] Attending Dr: Anastasiia ALLEN Ordering Physician: Anastasiia Olson Date of Service: 05/24/25 Procedure(s): NM cardiolite stress test Accession Number(s): [id number] cc: Anastasiia Olson; Galo Prajapati MD Reason [...] 05/25/25 1604 DD/ 0952 TD/TT: 05/25/25 1200 Administrative Library Assistant: us [facility] External Provider CV STRE SS PROCEDURES Final Result [facility] [address] [place] [phone] * (ABNORMAL) High Sensitivity Troponin I (05/17/2025 2:10 PM EDT) Only the most recent of2 resultswithin the time period is included. TROPONIN I HIGH SENSITIVITY 55.0(H) <3.5 - 35.0 ng/L [facility] Comment:The Meza high sens itivity Troponin-I results should beused in conjunction with other diagnostic information suchas ECG, clinical observations and information, and patientsymptoms to aid in the diagnosis of IN. 05/17/2025 2:10 PM EDT 05/17/2025 2:18 PM EDT Generic External Data Provider LAB BLOOD ORDERAB LES Final Result Performing Organization Address [facility] de Phone Number [facility] [address] [place] [phone] * NT-proBNP (05/17/2025 11:50 AM EDT) Only the most recent of2 resultswithin the time period is included. Pathologist [facility] NT-proBNP 111.0 <300 pg/mL [facility] Comment:Reference Range:Age Group (years) NT-proBNP (pg/ml) InterpretationAll <300 Negative: HF unlikelyFor patients presenting to the ED with clinical suspicion ofnew onset or worsening HF, see below:18 to <50 >299.9 to <450.0 [place]: Galkgmca95 to 75 >299.9 to <900.0 other causes of>75 >299.9 to <1800.0 NT-proBNP to <50 >449.9 Positive: HF fikdqn93-27 >899.9>75 >1799.9Note: Elevated NT-proBNP levels should be interpreted inthe context of other clinical information. 05/17/2025 11:5 0 AM EDT 05/17/2025 11:55 AM EDT us Generic External Data Provider LAB BLOOD ORDERAB LES Final Result Performing Organization Address [facility] Co de Phone Number [facility] [address] [place] [phone] * (ABNORMAL) Comprehensive Metabolic Panel (05/17/2025 11:50 AM EDT) Only the most recent of2 resultswithin the time period is included. Sodium 137 135 - 145 mmol/L [facility] Potassium 4.5 3.3 - 5.1 mmol/L [facility] Chloride 100 96 - 108 mmol/L [facility] Carbon Dioxide 31(H) 22 - 29 mmol/L [facility] Anion Gap 11(L) 12 - 20 [facility] Urea Nitrogen (BUN) 14 9 - 16 mg/dL [facility] Creatinine, Serum 0.80 0.5 - 1.4 mg/dL [facility] Creatinine Clr Calc Pharmacy 105.9 [facility] Comment:eGFR (calculated fro m the MDRD study equation) and eCrCl(calculated from the Cockcroft-Gault equation) are based ondifferent parameters and may not yield comparable results.If eCrCl result is absurd, please check patient'sheight/weight. Estimated Glomerular Filt Rate >60 [facility] Comment:Chronic Kidney Disea se: Estimated GFR < 60 mL/min/[id number] Kidney Disease: Estimated GFR < 15 mL/min/1.73m2 Glucose 150(H) 60 - 115 mg/dL [facility] Calcium 9.2 8.4 - 10.2 mg/dL [facility] Bilirubin, Total 0.4 0.0 - 1.0 mg/dL [facility] Aspartate Amino Transferase 21 5 - 37 U/L [facility] Alanine Aminotransferase 16 0 - 40 U/L [facility] Total Protein 7.1 6.5 - 8.0 g/dL [facility] Albumin Level 4.3 3.5 - 5.0 g/dL [facility] Alkaline Phosphatase 81 39 - 117 U/L [facility] 05/17/2025 11:5 0 AM EDT 05/17/2025 11:55 AM EDT us Generic External Data Provider LAB BLOOD ORDERAB LES Final Result [facility] [address] [place] [phone] * XR Chest 1 View (05/17/2025 11:46 AM EDT) Anatomical Region Laterality Modality Chest Radiographic Rosemarie ging 05/17/2025 11:4 6 AM EDT Narrative 05/17/2025 11:53 AM EDT [address] [address] XRay Report Signed Patient: Nemesio Brown MR#: [id number] : 1960 Acct:[id number] Age/Sex: 64 / M ADM Date: 05/17/25 Loc: .ED Attending Dr: Ordering Physician: Samson Mueller Date of Service: 05/17/25 Procedure(s): XR chest 1V Accession Number(s): [id number] cc: Samson Mueller; Galo Prajapati MD Reason [...] 05/17/25 1149 DD/ 1146 TD/TT: 05/17/25 1144 Administrative Library Assistant: Procedure Note Donotuseinterpreter, Image - 05/17/[address] [address] XRay Report Signed Patient: Radha BrownarMR#: [id number] : 1960Acct:[id number] Age/Sex: 64 / MADM Date: 05/17/25 Loc: HO.ED Attending Dr: Ordering Physician: Samson Mueller Date of Service: 05/17/25 Procedure(s): XR chest 1V Accession Number(s): [id number] cc: Samson Mueller; Galo Prajapati MD Reason [...] 05/17/25 1149 DD/ 1146 TD/TT: 05/17/25 1144 Administrative Library Assistant: [facility] External Provider IMG XR PROCEDURES Edited Result - Final * Magnesium (05/15/2025 3:46 PM EDT) Magnesium 2.2 1.6 - 2.6 mg/dL [facility] 05/15/2025 3:46 PM EDT 05/15/2025 3:46 PM EDT Generic External Data Provider LAB BLOOD ORDERAB LES Final Result [facility] [address] [place] [phone] [phone] * Lower Extremity Venous Duplex (05/14/2025 12:40 PM EDT) 05/14/2025 12:4 0 PM EDT Narrative [facility] - 05/14/2025 1:07 PM EDT [address] [address] Ultrasound Report Signed Patient: Nemesio Brown MR#: [id number] : 1960 Acct:[id number] Age/Sex: 64 / M ADM Date: 05/14/25 Loc: HO.ED Attending Dr: Ordering Physician: Amee Acosta Date of Service: 05/14/25 Procedure(s): US venous duplex LE LT Accession Number(s): [id number] cc: Galo Prajapati MD; Amee Acosta Reason [...] 05/14/25 1304 DD/ 1240 TD/TT: 05/14/25 1248 Administrative Library Assistant: Procedure Note Donotuseinterpreter, Image - 05/14/[address] [address] Ultrasound Report Signed Patient: Shayla Brown#: [id number] : 1960Acct:[id number] Age/Sex: 64 / MADM Date: 05/14/25 Loc: .ED Attending Dr: Ordering Physician: Amee Acosta Date of Service: 05/14/25 Procedure(s): US venous duplex LE LT Accession Number(s): [id number] cc: Galo Prajapati MD; Amee Acosta Reason [...] 05/14/25 1304 DD/ 1240 TD/TT: 05/14/25 1248 Administrative Library Assistant: [facility] External Provider CV VASC ULAR PROCEDURES Final Result [facility] [address] [place] [address] * D Dimer High Sensitivity (05/14/2025 9:43 AM EDT) D Dimer High Sensitivity 278 NG/ML [facility] Comment:Results of DDtania ca lled to Monae Mejia on 05/14/25at [...] ORDERABLES Final Re sult Performing Organization Address [facility] Co de Phone Number [facility] [address] [place] [phone] * (ABNORMAL) Glucose, Whole Blood (04/30/2025 1:32 PM EDT) [facility], [facility] Blood 189(H) 60 - 115 mg/dL [facility] Comment:METER #: [id number] 0Testing performed in the Endocrinology Department [address], [address], [facility]. 04/30/2025 1:32 PM EDT 04/30/2025 1:36 PM EDT [employer] External Data Provider LAB BLOOD ORDERAB LES Final Result Performing Organization Address [facility] Co de Phone Number [facility] [address] [place] [phone] * (ABNORMAL) POCT HGB A1C (04/10/2025 9:07 AM EDT) Hemoglobin A1C 7.6(A) 4.0 - 5.7 % QC Media Lot # [id number] Lot# Expiration Date [id number] Blood 04/10/2025 9:07 AM EDT Galo Ramey MD POINT OF CARE TEST EN TER/EDIT ORDERABLES Final Result * POCT Glucose (04/10/2025 9:00 AM EDT) Glucose Blood, POC 179 60 - 200 mg/dL Comment:random QC Media Lot # [id number] Lot# Expiration Date [id number] Blood Capillary blood specimen / Unknown 04/10/2025 9:00 AM EDT us Galo Ramey MD POINT OF CARE TEST EN TER/EDIT ORDERABLES Final Result * (ABNORMAL) Lipid Panel, Standard (02/28/2025 10:04 AM EDT) Triglycerides 187(H) <150 mg/dL [facility] Comment:Desirable Triglyceri de: less than 150 mg/dLBorderline High Triglyceride 150-199 mg/dLHigh Triglyceride: 200-499 mg/dLVery High Triglyceride: greater than or equal to 5OO mg/dL Cholesterol 164 <200 mg/dL [facility] Comment:Desirable Cholestero l: less than 200 mg/dLBorderline High Cholesterol: 200-239 mg/dLHigh Cholesterol: greater than 239 mg/dL LDL Cholesterol Calculated 91 <100 mg/dL [facility] [facility] Comment:Desirable LDL: less than 100 mg/dLNear Optimal/Above Optimal LDL: 110- 129 mg/dLBorderline High LDL: 130-159 mg/dLHigh LDL: 160-189 mg/dLVery High LDL: greater than or equal to 190 mg/dL HDL Cholesterol 36(L) >40 mg/dL [facility] Comment:Desirable HDL: great er than 40 mg/dL Note: This HDL assay may give artificially low results in patients with liver disease. 02/28/2025 10:0 4 AM EDT 02/28/2025 10:04 AM EDT us Generic External Data Provider LAB BLOOD ORDERAB LES Final Result [facility] [address] [place] [address] [phone] * Albumin, Random Urine W/Creatinine (02/28/2025 10:02 AM EDT) Creatinine, Urine 208.62 mg/dL [facility] Microalbumin Urine 26.0 mg/L [facility] Microalbum Creatinine Ratio Ur 12.4 <30 ug/mg cr [facility] Comment:Albumin/Creatinine R atio Reference Ranges: Normal: < 30 ug/mg creatinine Microalbuminuria: 30 - 300 ug/mg creatinineClinical Albuminuria: > 300 ug/mg creatinine 02/28/2025 10:0 2 AM EDT 02/28/2025 10:36 AM EDT Generic External Data Provider LAB URINE ORDERAB LES Final Result Performing Organization Address [facility] de Phone Number [facility] [address] [place] [address] [phone] * Hepatitis Panel, General (06/07/2024 10:41 AM EDT) Pathologist [facility] [place] Hepatitis A IgM Nonreactive Nonreactive [facility] Comment:IgM antibodies to ALBRECHT V not detected; does not exclude earlyacute or recovered HAV infection. ~Hepatitis B Surface Antibody NONREACTIVE Nonreactive [facility] Comment:Nonreactive: < 8.00 mIU/mL Hepatitis B Core Antibody Nonreactive Nonreactive [facility] Hepatitis C Antibody Nonreactive Nonreactive [facility] Comment:Antibodies to HCV no t detected; does not exclude early acuteHCV infection. Hepatitis B Surface Ag Negative Negative [facility] 06/07/2024 10:4 1 AM EDT 06/07/2024 10:41 AM EDT Generic External Data Provider LAB BLOOD ORDERAB LES Final Result Performing Organization Address [facility] de Phone Number [facility] [address] [place] [address] [phone] * Hm Colonoscopy (07/29/2018) Colonoscopy Normal Normal 07/29/2018 Georgia Orozco - 07/29/2018 1:52 PM EST Recommended 10 year follow up Historical Provider HEALTH MAINTENANCE Final Result from Last 3 Months or Most Recently Relevant to Health Maintenance Insurance [place], [place] MEDICARE [facility] Care Teams Brazing Machine Feeder Relationship Specialty Start Date End Date Galo Fang MD [address] [place] [address] PCP - General Internal Medicine 04/04/14
--- OUTSIDE RECORDS SUMMARY | 2025-06-22 11:01 | XMS_ITS | Encounter Summary ---
Author Organization [employer] Address [address] [place] [address] 7 [place] [address] Care Team Providers Care Power Transformer Repairer Name Role Phone Galo Fang MD Primary Care Provide r Encounter Details Date Type Department Care Team (Late st Contact Info) Description 12/23/2022 Abstract [facility] [address] [place] [phone] Galo Fang MD [address] [place] [address] [phone] Social History Tobacco Use Types Packs/Day Years [...] Description 07/10/2025 10:00 AM EST Office Visit [facility] [address] [place] [phone] Galo Fang MD [address] [place] [address] [phone] 09/14/2025 9:00 AM EST Office Visit [facility] [address] [place] [phone] Carroll Roberts MD [address] [place] [address] [phone] 09/21/2025 11:00 AM EST Office Visit [facility] [address] [place] [address] Pat Bates, OD [address] [place] [address] documented as of this encounter Procedures Procedure Name Priority Date/Time Associated Diagnosis Comments COLONOSCOPY Routine 07/29/2018 documented in this encounter Results * Hm Colonoscopy (07/29/2018) Colonoscopy Normal Normal 07/29/2018 Narrative Georgia Rubio - 07/29/2018 1:52 PM EST Recommended 10 year follow up Historical Provider HEALTH MAINTENANCE Final Result documented in this encounter Visit Diagnoses Not on filedocumented in this encounter Care Teams Power Transformer Repairer Relationship Specialty Start Date End Date Galo Fang MD 230 [place] [address] PCP - General Internal Medicine 04/04/14 documented as of this encounter
--- OUTSIDE RECORDS SUMMARY | 2025-06-22 11:01 | XMS_ITS | Encounter Summary ---
Author Organization [employer] Address [address] [facility] 7t [place] [address] Care Team Providers Care Analytical Lab Analyst Name Role Phone Galo Fang MD Primary Care Provide r Encounter Details Date Type Department Care Team (Latest Contact Info) Description 06/22/2025 Travel Social History Tobacco Use Types Packs/Day [...] Description 07/10/2025 10:00 AM EST Office Visit [facility] [address] [place] [address] Galo Fang MD [address] [place] [address] 09/14/2025 9:00 AM EST Office Visit [facility] [address] [place] [address] Carroll Roberts MD [address] [place] [address] 09/21/2025 11:00 AM EST Office Visit [facility] [address] [place] [address] Pat Bates, OD 230 [place] [address] documented as of this encounter Goals Goal [...] documented as of this encounter Care Teams Analytical Lab Analyst Relationship Specialty Start Date End Date Galo Fang MD [address] [place] [address] PCP - General Internal Medicine 04/04/14 documented as of this encounter
[2025-06-22 11:02] LABS: Anion Gap 9 (12-20); Blood Urea Nitrogen 16 mg/dL (9-16); Calcium 8.8 mg/dL (8.4-10.2); Carbon Dioxide 31 mmol/L (22-29); Chloride 99 mmol/L (96-108); Estimated Glomerular Filt Rate > 60; Potassium 4.4 mmol/L (3.3-5.1); Sodium 135 mmol/L (135-145)
--- OUTSIDE RECORDS SUMMARY | 2025-06-22 11:02 | XMS_ITS | Encounter Summary ---
Author Organization [employer] Address [address] [place] [address] 7 [place] [address] Care Team Providers Care Delineator Name Role Phone Galo Fang MD Primary Care Provide r Reason for Visit * Reason Comments Med Refill Encounter Details Date Type Department Care Team (Late Contact Info) Description 03/02/2023 Refill [facility] [address] [place] [phone] Carroll Roberts MD [address] [place] [address] [phone] Uncomplicated opioid dependence (CMS/HCC) Social History Tobacco [...] Description 07/10/2025 10:00 AM EST Office Visit [facility] [address] [place] [address] [phone] Galo Fang MD [address] [place] [address] [phone] 09/14/2025 9:00 AM EST Office Visit [facility] [address] [place] [address] [phone] Carroll Roberts MD [address] [place] [address] 09/21/2025 11:00 AM EST Office Visit [facility] [address] [place], [place] [phone] Pat Bates, OD 230 [place] [address] documented as of this encounter Visit Diagnoses Diagnosis Uncomplicated opioid dependence (CMS/HCC) (HCC) documented in this encounter Care Teams Delineator Relationship Specialty Start Date End Date Galo Fang MD [address] [place], [place] [phone] PCP - General Internal Medicine 04/04/14 documented as of this encounter
--- OUTSIDE RECORDS SUMMARY | 2025-06-22 11:02 | XMS_ITS | Patient Health Record ---
Author Organization [facility] Address [address] [place] [address] Care Team Providers Care Conche Operator Name Role Phone Ahmet Abbasi Unavailable [phone] Reason For Referral No Information Plan Of Treatment No Information
--- OUTSIDE RECORDS SUMMARY | 2025-06-22 11:02 | XMS_ITS | Encounter Summary ---
Author Organization [employer] Address [address] [place] [address] 7 [place] [address] Care Team Providers Care Case Preparer And Liner Name Role Phone Galo Fang MD Primary Care Provide r Encounter Details Date Type Department Care Team (Late Contact Info) Description 06/14/2023 Abstract [facility] [address] [place] [phone] Galo Fang MD [address] [place] [address] [phone] Social History Tobacco Use Types Packs/Day Years [...] Description 07/10/2025 10:00 AM EST Office Visit [facility] [address] [place] [phone] Galo Fang MD [address] [place] [address] [phone] 09/14/2025 9:00 AM EST Office Visit [facility] [address] [place] [address] Carroll Roberts MD [address] [place] [address] [phone] 09/21/2025 11:00 AM EST Office Visit [facility] [address] [place] [address] Pat Bates, OD 230 [place] [address] documented as of this encounter Procedures Procedure [...] on filedocumented in this encounter Care Teams Case Preparer And Liner Relationship Specialty Start Date End Date Galo Fang MD [address] [place] [address] PCP - General Internal Medicine 04/04/14 documented as of this encounter
--- OUTSIDE RECORDS SUMMARY | 2025-06-22 11:02 | XMS_ITS | Encounter Summary ---
Author Organization [employer] Address [address] [place] [address] [place], [place] [address] Care Team Providers Care Director Radio Name Role Phone Galo Fang MD Primary Care Provide r Reason for Visit * Reason Comments Med Refill Encounter Details Date Type Department Care Team ([facility] Contact Info) Description 06/22/2023 Refill [facility] [address] [place] [phone] Carroll Roberts MD [address] [place] [address] [phone] Uncomplicated opioid dependence (CMS/[facility]) Social History Tobacco Use Types Packs/Day Years [...] EST Office Visit [facility] [address] [place] [address] [phone] Galo Fang MD 230 [place] [address] 09/14/2025 9:00 AM EST Office Visit [facility] [address] [place] [address] Carroll Roberts MD [address] [place], [place] [phone] 09/21/2025 11:00 AM EST Office Visit [facility] [address] [place], [place] 1901140 Pat Bates, OD 230 [place], [place] [phone] documented as of this encounter Visit Diagnoses Diagnosis Uncomplicated opioid dependence (CMS/HCC) (HCC) documented in this encounter Care Teams Director Radio Relationship Specialty Start Date End Date aGlo Fang MD 230 [place], [place] [phone] PCP - General Internal Medicine 04/04/14 documented as of this encounter
--- OUTSIDE RECORDS SUMMARY | 2025-06-22 11:02 | XMS_ITS | Encounter Summary ---
Author Organization [employer] Address [address] [facility] 7t [place] [address] Care Team Providers Care Home Mortgage Disclosure Act Specialist Name Role Phone Galo Fang MD Primary Care Provide r Reason for Visit * Reason Comments Med Refill Encounter Details Date Type Department Care Team ([facility] st Contact Info) Description 12/23/2023 Refill [facility] 230 [place], [place] [phone] Carroll Roberts MD 230 [place], [place] [phone] Constipation, unspecified constipation type Social History Tobacco [...] 10:00 AM EST Office Visit [facility] [address] [place] [address] Galo Fang MD [address] [place] [address] 09/14/2025 9:00 AM EST Office Visit [facility] [address] [place] [address] Carroll Roberts MD [address] [place] [address] 09/21/2025 11:00 AM EST Office Visit [facility] [address] [place] [address] Paulo, Pat, OD 230 [place] [address] documented as of this encounter Visit Diagnoses Diagnosis Constipation, unspecified constipation type documented in this encounter Additional Health Concerns Assessment Noted Time PHQ-9 Depression Total Score: 0 07/01/20 23 1:10 PM EST documented as of this encounter Care Teams Home Mortgage Disclosure Act Specialist Relationship Specialty Start Date End Date Galo Fang MD [address] [place] [phone] PCP - General Internal Medicine 04/04/14 documented as of this encounter
--- OUTSIDE RECORDS SUMMARY | 2025-06-22 11:02 | XMS_ITS | Encounter Summary ---
Author Organization [employer] Address [address] [facility] 7t [place] [address] Care Team Providers Care Clinical Trial Leader Name Role Phone Galo Fang MD Primary Care Provide r Reason for Visit * Reason Comments Med Refill Encounter Details Date Type Department Care Team ([facility] st Contact Info) Description 04/20/2024 Refill [facility] 230 [place], [place] [phone] Jocelyn Cruz FNP 230 [place] [address] Social History Tobacco Use Types Packs/Day Years [...] Description 07/10/2025 10:00 AM EST Office Visit [facility] 230 [place] [address] Galo Fang MD [address] [place] [address] 09/14/2025 9:00 AM EST Office Visit [facility] [address] [place] [address] Carroll Roberts MD [address] [place] [address] 09/21/2025 11:00 AM EST Office Visit [facility] [address] [place] [address] Paulo, Pat, OD 230 [place] [address] documented as of this encounter Visit Diagnoses Not on filedocumented in this encounter Additional Health Concerns Assessment Noted Time PHQ-9 Depression Total Score: 0 07/01/20 23 1:10 PM EST documented as of this encounter Care Teams Clinical Trial Leader Relationship Specialty Start Date End Date Galo Fang MD [address] [place] [phone] PCP - General Internal Medicine 04/04/14 documented as of this encounter
--- OUTSIDE RECORDS SUMMARY | 2025-06-22 11:02 | XMS_ITS | Encounter Summary ---
Author Organization [employer] Address [address] [facility] 7t [place] [address] Care Team Providers Care Compensation Supervisor Name Role Phone Galo Fang MD Primary Care Provide r Reason for Visit * Reason Comments Med Refill Encounter Details Date Type Department Care Team ([facility] st Contact Info) Description 10/08/2023 Refill [facility] [address] [place] [address] Carroll Roberts MD [address] [place] [address] Uncomplicated opioid dependence (CMS/HCC) Social History Tobacco [...] 10:00 AM EST Office Visit [facility] [address] [place] [address] Galo Fang MD [address] [place] [address] 09/14/2025 9:00 AM EST Office Visit [facility] [address] [place] [address] Carroll Roberts MD [address] [place] [address] 09/21/2025 11:00 AM EST Office Visit [facility] [address] [place] [address] Paulo, Pat, OD 230 [place] [address] documented as of this encounter Visit Diagnoses Diagnosis Uncomplicated opioid dependence (CMS/HCC) (HCC) documented in this encounter Additional Health Concerns Assessment Noted Time PHQ-9 Depression Total Score: 0 07/01/20 23 1:10 PM EST documented as of this encounter Care Teams Compensation Supervisor Relationship Specialty Start Date End Date Galo Fang MD [address] [place] [phone] PCP - General Internal Medicine 04/04/14 documented as of this encounter
--- OUTSIDE RECORDS SUMMARY | 2025-06-22 11:02 | XMS_ITS | Encounter Summary ---
Author Organization [employer] Address [address] [place] [address] [place], [place] [address] Care Team Providers Care Supervisor Rice Milling Name Role Phone Galo Fang MD Primary Care Provide r Reason for Visit * Reason Comments Med Refill Encounter Details Date Type Department Care Team ([facility] Contact Info) Description 04/27/2023 Refill [facility] [address] [place] [phone] Carroll Roberts MD [address] [place] [phone] Uncomplicated opioid dependence (CMS/[facility]) Social History Tobacco Use Types Packs/Day [...] Description 07/10/2025 10:00 AM EST Office Visit [facility] [address] [place] [address] 95174 Galo Fang MD [address] [place] [address] 09/14/2025 9:00 AM EST Office Visit [facility] [address] [place] [address] Carroll Roberts MD [address] [place], [place] [phone] 09/21/2025 11:00 AM EST Office Visit [facility] [address] [place], [place] [phone] Pat Bates, OD 230 [place], [place] [phone] documented as of this encounter Visit Diagnoses Diagnosis Uncomplicated opioid dependence (CMS/HCC) (HCC) documented in this encounter Care Teams Supervisor Rice Milling Relationship Specialty Start Date End Date Galo Fang MD 230 [place], [place] [phone] PCP - General Internal Medicine 04/04/14 documented as of this encounter
--- OUTSIDE RECORDS SUMMARY | 2025-06-22 11:02 | XMS_ITS | Encounter Summary ---
Author Organization [employer] Address [address] [facility] 7t [place] [address] Care Team Providers Care Dental Hygiene Instructor Name Role Phone Galo Fang MD Primary Care Provide r Reason for Visit * Reason Comments Med Refill Encounter Details Date Type Department Care Team ([facility] st Contact Info) Description 12/03/2023 Refill [facility] [address] [place] [address] Carroll Roberts MD [address] [place] [address] Uncomplicated opioid dependence (CMS/HCC) Social History Tobacco [...] Description 07/10/2025 10:00 AM EST Office Visit [facility] [address] [place] [address] Galo Fang MD [address] [place] [address] 09/14/2025 9:00 AM EST Office Visit [facility] [address] [place] [address] Carroll Roberts MD [address] [place] [address] 09/21/2025 11:00 AM EST Office Visit [facility] [address] [place] [address] Paulo, Pat, OD 230 [place] [address] documented as of this encounter Visit Diagnoses Diagnosis Uncomplicated opioid dependence (CMS/HCC) (HCC) documented in this encounter Additional Health Concerns Assessment Noted Time PHQ-9 Depression Total Score: 0 07/01/20 23 1:10 PM EST documented as of this encounter Care Teams Dental Hygiene Instructor Relationship Specialty Start Date End Date Galo Fang MD [address] [place] [phone] PCP - General Internal Medicine 04/04/14 documented as of this encounter
--- OUTSIDE RECORDS SUMMARY | 2025-06-22 11:02 | XMS_ITS | Encounter Summary ---
Author Organization [employer] Address [address] [facility] 7t [place] [address] Care Team Providers Care Inside Polisher Name Role Phone Galo Fang MD Primary Care Provide r Reason for Visit * Reason Comments Med Refill Encounter Details Date Type Department Care Team ([facility] st Contact Info) Description 04/20/2024 Refill [facility] [address] [phone] Karuna Covington MD 230 [place] [address] Foreign body sensation, right eye Social History [...] Description 07/10/2025 10:00 AM EST Office Visit [facility] [address] [place] [address] Galo Fang MD 230 [place] [address] 09/14/2025 9:00 AM EST Office Visit [facility] [address] [place] [address] Carroll Roberts MD [address] [place] [address] 09/21/2025 11:00 AM EST Office Visit [facility] [address] [place] [address] Paulo, Pat, OD 230 [place] [address] documented as of this encounter Visit Diagnoses Diagnosis Foreign body sensation, right eye documented in this encounter Additional Health Concerns Assessment Noted Time PHQ-9 Depression Total Score: 0 07/01/20 23 1:10 PM EST documented as of this encounter Care Teams Inside Polisher Relationship Specialty Start Date End Date Galo Fang MD [address] [place] [address] PCP - General Internal Medicine 04/04/14 documented as of this encounter
--- OUTSIDE RECORDS SUMMARY | 2025-06-22 11:02 | XMS_ITS | Encounter Summary ---
Author Organization [employer] Address [address] [facility] 7t [place] [address] Care Team Providers Care Slp Name Role Phone Galo Fang MD Primary Care Provide r Reason for Visit * Reason Comments Med Refill Encounter Details Date Type Department Care Team ([facility] st Contact Info) Description 01/28/2024 Refill [facility] [address] [place] [address] Carroll Roberts MD 230 [place], [place] [phone] Uncomplicated opioid dependence (CMS/HCC) Social History Tobacco [...] Description 07/10/2025 10:00 AM EST Office Visit [facility] [address] [place] [address] Galo Fang MD [address] [place] [address] 09/14/2025 9:00 AM EST Office Visit [facility] [address] [place] [address] Carroll Roberts MD [address] [place] [address] 09/21/2025 11:00 AM EST Office Visit [facility] [address] [place] [address] Paulo, Pat, OD 230 [place] [address] documented as of this encounter Visit Diagnoses Diagnosis Uncomplicated opioid dependence (CMS/HCC) (HCC) documented in this encounter Additional Health Concerns Assessment Noted Time PHQ-9 Depression Total Score: 0 07/01/20 23 1:10 PM EST documented as of this encounter Care Teams Slp Relationship Specialty Start Date End Date Galo Fang MD [address] [place] [address] PCP - General Internal Medicine 04/04/14 documented as of this encounter
== END 2025-06-22 09:38 | disposition home or self-care (01) ==
LOC: HO.LAB 09:37
PROVIDERS: PCP Internal Medicine; Referring Provider Internal Medicine Cardiovascular Disease; Visit Provider Nurse Practitioner Family
DX: I25.10 Atherosclerotic heart disease of native coronary artery without angina pectoris (principal)
CPT/HCPCS: 36415; 80048; 85025; 85610

== ENCOUNTER → 2025-07-05 23:59 | Outpatient (BNV) | payer MEDICARE, MEDICAID, SELFPAY | PROVIDERS: PCP Internal Medicine; Visit Provider Internal Medicine Cardiovascular Disease | DX: I25.10 Atherosclerotic heart disease of native coronary artery without angina pectoris (principal); R94.39 Abnormal result of other cardiovascular function study | CPT/HCPCS: 93458; 99152 ==

== ENCOUNTER 2025-07-19 09:18 | Outpatient (AMB) | payer MEDICARE, MEDICAID, SELFPAY ==
[2025-07-19 09:41] VITALS: BP 118/72; PULSE 70; BMI 33.5
--- NOTE | 2025-07-19 09:41 | A.OFFVIS_ITS ---
Vital Signs 07/19/25 09:41 Height 5 ft 8 in Weight 220 lb 7.396 oz BMI 33.5 BP 118/72 Blood Pressure Location Lt brachial Position Sitting Pulse 70 Pulse Source Pulse Oximeter Intake Visit Reasons: 2wk f/up- cath 07/05 Assistant Grocery Store Manager Required: Yes Assistant Grocery Store Manager Language: Machine Made Shoe Unit Worker Name: voice prince [phone] Salesperson Pets [employer] Pet Supplies: Salesperson Pets [employer] Pet Supplies Present Allergies dulaglutide (From [facility]) Adverse Reaction (Mild, Verified 07/19/25 09:45) Diarrhea Medication List - Last Reconciled 07/19/25 by ALEJANDRO Centeno aspirin 81 mg PO DAILY atorvastatin 20 mg PO DAILY blood sugar diagnostic (FreeStyle Lite Strips) 1 strip miscellaneous TID blood-glucose meter (FreeStyle Lite Meter kit) As directed blood-glucose sensor (FreeStyle Yahaira 3 Plus Sensor device) Apply 1 new sensor every 15 days as directed to monitor blood glucose continuously. blood-glucose,mail manager,cont (FreeStyle Yahaira 3 Ceiba) Use daily to monitor blood glucose levels continuously. buprenorphine-naloxone 8-2 mg (Suboxone) 1 film sublingual DAILY carvedilol 12.5 mg PO BID cholecalciferol (vitamin D3) 50 mcg PO DAILY empagliflozin (Jardiance) 25 mg PO QAM 30 days insulin degludec (Tresiba FlexTouch U-200 insulin) 80 units (0.4 mL) subcut BEDTIME insulin lispro 12 - 14 units (0.12 - 0.14 mL) subcut TID lancets (FreeStyle Lancets) As directed three time a day omeprazole 20 mg PO DAILY pen needle, diabetic (BD Ultra-Fine Gisella Pen Needle) As directed four times a day sucralfate (Carafate) 1 g PO Q6H 7 days tirzepatide (Mounjaro) 7.5 mg (0.5 mL) subcut QWEEK valsartan 80 mg PO DAILY HPI HPI 2wk f/up- cath 07/05: Details: Nemesio is a 65-year-old male past medical history of hypertension, hyperlipidemia, diabetes, obesity, sleep apnea, not using CPAP, cardiomyopathy, bioprosthetic AVR with elevated gradiants, CHB with recent Medtronic dual chamber pacemaker placement who was found to have a 37 second run of nonsustained ventricular tachycardia on device remote monitoring, 05/13/25 at 1441. Incidently, He was seen in the ED 05/14 for leg pain and ruled out for DVT. Labs showed K 4.6, Ca+ 8.6. On 05/15/25 Mg 2.2. He trialed increased dose of carvedilol and had lightheadedness. He is back on his usual 12.5mg bid. Nuclear stress test showed mild ischemia, leading to cardiac catheterization which showed [id number] coronary artery disease, no obvious cause for NSVT. Today he reports that he has been doing generally well since last visit. He is back to doing normal ADLs. He has his usual shortness of breath with exertion which is unchanged recently. No PND, orthopnea or edema. He is not getting ches t discomfort at rest or with activities. No heart palpitations, lightheadedness presyncope, syncope, falls. Taking meds as directed. Certified engineering technical analyst used. Significant other present. [facility] Medical History Osteoporosis History of cardiomyopathy Prosthetic valve dysfunction BMI 39.0-39.9,adult Cardiomyopathy TAMARA (obstructive sleep apnea) Opioid dependence Hypogonadism Polyarthropathy Erectile dysfunction Nephrolithiasis Depression Esophageal reflux Arthritis Asthma Hyperlipidemia LDL goal <70 Obesity due to excess calories Essential hypertension Type 2 diabetes mellitus with diabetic neuropathy, unspecified Surgical History History of heart valve replacement Hx of umbilical hernia repair Family History Father Heart disease CVD (cardiovascular disease) Mother DM2 (diabetes mellitus, type 2) Social History Household Members: None Alcohol intake: current Alcohol intake frequency: does not drink Patient Tobacco Use Status: Former Tobacco user Current occupational status: disabled Review of Systems Const All systems reviewed & are unremarkable except as noted in HPI and below ENT Denies dizziness Card Denies chest pain, Denies chest pain at rest, Denies chest pain with activity, Denies rapid heart rate, Denies pedal edema, Denies edema, Denies leg edema, Denies lightheadedness, Denies palpitations, Denies dyspnea, Denies dyspnea on exertion and Denies orthopnea Resp Denies cough, Denies dyspnea and Denies dyspnea on exertion GI Denies hematochezia and Denies change in stool character Musc Denies abnormal gait, Denies limited range of motion, Denies muscle cramps, De nies muscle weakness, Denies numbness, Denies radiating pain into limb, Denies stiffness and Denies tingling Neuro Denies abnormal gait, Denies dizziness, Denies numbness and Denies tingling Endo Denies palpitations Physical Exam Vital Signs: Last Vital Signs Pulse 70 07/19/25 09:41 BP 118/72 07/19/25 09:41 BMI result Body Mass Index 33.5 Const General: cooperative, healthy appearing, comfortable and no acute distress Orientation/consciousness: patient oriented x3 Neck Neck: Yes normal visual inspection Resp Effort & Inspection: normal respiratory effort Auscultation: clear to auscultation bilaterally, no crackles, no rales, no rhonchi and no wheezes Cardio Rate: regular rate Rhythm: regular rhythm Heart sounds: S1 normal heart sound present, S2 normal heart sound present, no gallops, no murmurs and no rubs Neuro General: patient oriented x3 Extrem General: Yes normal to inspection, No no pedal edema and No calf tenderness Psych Appearance: grossly normal Mental Status: mental status grossly normal Speech and movement: Normal speech and movement present Assessment & Plan Assessment & Plan (1) NSVT (nonsustained ventricular tachycardia): Code(s): I47.29 - Other ventricular tachycardia Category: Medical Plan: Remote pacemaker monitoring shows a 37 second run of NSVT, 05/13/2025 with reports of lightheadedness. Follow-up labs showed No significant lab abnormalities. Last echocardiogram 03/16/2025 showed EF 60-65%. Known history of nonobstructive LAD stenosis. Pharmacological nuclear stress test done 05/24/2025 shows mild intensity basal and mid inferior lateral wall ischemia, low co nfidence of interpretation, EF 48%. He then had cardiiac catheterization which showed [id number] CAD -without cause for his NSVT run. No recurrent episodes of NSVT seen on remote monitoring. A higher dose carvedilol had been tried however he became lightheaded. At present Continue current carvedilol , aspirin and atorvastatin. Continue remote monitoring of pacemaker to assess for recurrent arrhythmia. (2) S/P cardiac catheterization: Comment: 07/05/2025 left main normal proximal LAD 40% stenosis, distal LAD 30-40% s tenosis, left circumflex minimal irregularities, mid RCA 40% stenosis, distal RCA 60-70% stenosis, RV marginal 70-80% stenosis. Code(s): Z98.890 - Other specified postprocedural states Category: Surgical Plan: Right radial catheterization site well healed (3) Coronary artery disease: Comment: Catheterization 12/21/2018 lad moderate disease, proximal LAD 45% stenosis, left circumflex mild disease, RCA mild disease. Code(s): I25.10 - Atherosclerotic heart disease of [place] coronary artery without angina pectoris Category: Medical Plan: History of nonobstructive coronary artery disease with repeat cardiac catheterization as above. No anginal symptoms. Ongoing medical management. Continue aspirin indefinitely. Continue atorvastatin with ideal LDL goal less than 70. Atorvastatin had been recently added, will need updated fasting lipids in the near future. (4) Pacemaker: Comment: Medtronic dual-chamber pacemaker placement 03/20/2025 for complete heart block Code(s): Z95.0 - Presence of cardiac pacemaker Category: Medical Plan: Interrogation last visit shows device is functioning normally. He has remote monitoring in use. Next office interrogation due in October. (5) Status post aortic valve replacement: Code(s): Z95.2 - Presence of prosthetic heart valve Category: Surgical Plan: History of aortic stenosis, status post bioprosthetic AVR. Last echo done 03/16/2025 shows EF 60-65%, stenosis of bioprosthetic aortic valve with mean gradient 21 mmHg, ascending aorta 4.0 cm. Prior echo done 05/12/2023 had shown mean gradient 11 mmHg. No cardinal signs of severe . Those signs reviewed with him in detail. Repeat echocardiogram was planned 6 months from last. Due in September (6) Prosthetic valve dysfunction: Comment: Secondary to patient prosthesis mismatch. Mean gradient of 21 mm Hg post surgical at baseline. Code(s): T82.09XA - Other mechanical complication of heart valve prosthesis, initial encounter Category: Medical Plan: As above (7) History of cardiomyopathy: Comment: Improved after aortic valve replacement with last LVEF of 50-55% Code(s): Z86.79 - Personal history of other diseases of the circulatory system Category: Medical Plan: History of cardiomyopathy. EF improved following aortic valve replacement and neurohormonal modulation. Most recent EF 60-65 %. No signs of heart failure on examination. Continue valsartan, carvedilol, Jardiance. He has CPAP says he is not able to wear it as it causes him congestion. Instructed to wear CPAP as much as tolerated. Can discuss further with his PCP/Pulmonary provider if needed. Continue physical activity as tolerated, weight loss recommended. (8) Essential hypertension: Code(s): I10 - Essential (primary) hypertension Category: Medical Plan: Blood pressure goal less than 130/80. Blood pressure good today. Continue carvedilol and valsartan. (9) Hyperlipidemia LDL goal <70: Code(s): E78.5 - Hyperlipidemia, unspecified Category: Medical Plan: [place] LDL goal less than 70 in patient with diabetes and CAD. Labs done 02/28/2025 had shown LDL 91. Atrovastatin then added by PCP. (10) Enlarged thoracic aorta: Code(s): I77.89 - Other specified disorders of arteries and arterioles Category: Medical Plan: Ascending aorta dilated at 4.0 cm on most recent echocardiogram. Plan I informed the patient that his recent cardiac catheterization showed some cholesterol buildup in his heart arteries, but that it was not obstructing blood flow and did not require a stent. I explained that this finding was not the cause of the rapid heartbeat he had experienced. I reassured him that his pacemaker monitoring has not shown any more of the concerning heart rhythm and that his heart has been stable. We discussed continuing his current medications and that a prior attempt to increase his carvedilol was not well-tolerated. I advised him of the plan, which includes continued pacemaker monitoring, an upcoming heart ultrasound in a couple of months, and keeping his scheduled follow-up with Dr. Marie in October. I also instructed him to stay physically active and to go to the emergency room if he experiences any worsening symptoms such as difficulty breathing. Patient Instructions: - Continue to take your medicines as prescribed, including Carvedilol 12.5 mg twice a day. - Stay physically active. - You have a follow-up visit already scheduled with Dr. Marie in October; please keep that appointment. - Our scheduling office will call you to schedule an ultrasound of your heart, which should happen in a couple of months. Patient was informed and verbally consented to the use of an ambient scribe for clinic note documentation during this visit. Visit time spent on chart review, interview, assessment, orders, documentation. Coding Level of Care Code Est Pt Level 4 (86428) Complex visit Add On G2211 Diagnoses NSVT (nonsustained ventricular tachycardia) I47.29 S/P cardiac catheterization Z98.890 Coronary artery disease I25.10 Pacemaker Z95.0 Status post aortic valve replacement Z95.2 Prosthetic valve dysfunction T82.09XA History of cardiomyopathy Z86.79 Essential hypertension I10 Hyperlipidemia LDL goal <70 E78.5 Enlarged thoracic aorta I77.89 Time Spent (min) 32
--- OUTSIDE RECORDS SUMMARY | 2025-07-19 10:19 | XMS_ITS | Encounter Summary ---
Author Organization [employer] [facility] Address [address] [place] [address] 7t [place] [address] Care Team Providers Care Glove Factory Sewer Name Role Phone Galo Fang MD Primary Care Provide r Reason for Visit * Reason Comments Med Refill Encounter Details Date Type Department Care Team (Late st Contact Info) Description 11/03/2022 Refill [facility] [address] [place] [address] [phone] Jess Barriga MD [address] [place] [address] Mild intermittent asthma without complication Social History [...] Care Team (Late st Contact Info) Description 09/06/2025 11:30 AM EST Office Visit [facility] [address] [place] [phone] Galo Fang MD [address] [place], [place] [phone] 09/14/2025 9:00 AM EST Office Visit [facility] [address] [place] [phone] Carroll Roberts MD [address] [place], [place] [phone] 09/21/2025 11:00 AM EST Office Visit [facility] [address] [place], [place] [phone] Pat Bates, OD [address] [place], [place] [phone] documented as of this encounter Visit Diagnoses Diagnosis Mild intermittent asthma without complication documented in this encounter Care Teams Glove Factory Sewer Relationship Specialty Start Date End Date Galo Fang MD [address] [place], [place] [phone] PCP - General Internal Medicine 04/04/14 documented as of this encounter
--- OUTSIDE RECORDS SUMMARY | 2025-07-19 10:19 | XMS_ITS | Encounter Summary ---
Author Organization [employer] Address [address] [facility] 7t [place] [address] Care Team Providers Care Bolt Sorter Name Role Phone Galo Fang MD Primary Care Provide r Reason for Visit * Reason Comments Med Refill Encounter Details Date Type Department Care Team ([facility] st Contact Info) Description 09/08/2024 Refill [facility] [address] [place], [place] [phone] Carroll Roberts MD [address] [place], [place] [phone] Uncomplicated opioid dependence (CMS/HCC) Social History Tobacco [...] Description 09/06/2025 11:30 AM EST Office Visit [facility] [address] [place] [phone] Galo Fang MD [address] [place] [address] 09/14/2025 9:00 AM EST Office Visit [facility] [address] [place] [address] Carroll Roberts MD [address] [place] [address] 09/21/2025 11:00 AM EST Office Visit [facility] [address] [place] [address] Pat Bates, OD [address] [place] [address] documented as of this encounter Visit Diagnoses Diagnosis Uncomplicated opioid dependence (CMS/HCC) (HCC) documented in this encounter Additional Health Concerns Assessment Noted Time PHQ-9 Depression Total Score: 0 05/26/20 24 9:56 AM EDT documented as of this encounter Care Teams Bolt Sorter Relationship Specialty Start Date End Date Galo Fang MD [address] [place] [phone] PCP - General Internal Medicine 04/04/14 documented as of this encounter
--- OUTSIDE RECORDS SUMMARY | 2025-07-19 10:19 | XMS_ITS | Encounter Summary ---
Author Organization [employer] Address [address] [facility] 7t [place] [address] Care Team Providers Care Valve Inserter Name Role Phone Galo Fang MD Primary Care Provide r Encounter Details Date Type Department Care Team ([facility] st Contact Info) Description 05/15/2025 Results Follow-Up [facility] [address] [place], [place] [phone] Susan Arriaga MD [address] [place], [place] [phone] D Dimer High Sensitivity Social History Tobacco [...] Description 09/06/2025 11:30 AM EST Office Visit [facility] [address] [place] [address] Galo Fang MD [address] [place] [address] 09/14/2025 9:00 AM EST Office Visit [facility] [address] [place] [address] Carroll Roberts MD [address] [place] [address] 09/21/2025 11:00 AM EST Office Visit [facility] [address] [place] [address] Pat Bates, OD [address] [place] [address] documented as of this encounter Goals Goal [...] documented as of this encounter Care Teams Valve Inserter Relationship Specialty Start Date End Date Galo Fang MD [address] [place] [address] PCP - General Internal Medicine 04/04/14 documented as of this encounter
--- OUTSIDE RECORDS SUMMARY | 2025-07-19 10:19 | XMS_ITS | Encounter Summary ---
Author Organization [employer] [facility] Address [address] [place] [address] 7t [place] [address] Care Team Providers Care Visual Merchandiser Name Role Phone Galo Fang MD Primary Care Provide r Reason for Visit * Reason Onset Date Comments Med Refill TP 01/02/2023 Encounter Details Date Type Department Care Team (Late st Contact Info) Description 01/02/2023 Telephone [facility] [address] [place] [phone] Carroll Roberts MD [address] [place] [address] Med Refill; TP Social History Tobacco Use [...] Description 09/06/2025 11:30 AM EST Office Visit [facility] [address] [place] [address] Galo Fang MD [address] [place] [address] 09/14/2025 9:00 AM EST Office Visit [facility] [address] [place] [address] Carroll Roberts MD [address] [place] [address] 09/21/2025 11:00 AM EST Office Visit [facility] [address] [place], [place] [phone] Pat Bates, CHRISTINA [address] [place] [address] documented as of this encounter Visit Diagnoses Diagnosis Uncomplicated opioid dependence (CMS/HCC) (HCC) documented in this encounter Care Teams Visual Merchandiser Relationship Specialty Start Date End Date Galo Fang MD [address] [place] [address] PCP - General Internal Medicine 04/04/14 documented as of this encounter
--- OUTSIDE RECORDS SUMMARY | 2025-07-19 10:19 | XMS_ITS | Encounter Summary ---
Author Organization [employer] [facility] Address [address] [place] [address] 7 [place] [address] Care Team Providers Care Surveillance Sensor Operator Name Role Phone Galo Fang MD Primary Care Provide r Reason for Visit * Reason Comments Med Refill Encounter Details Date Type Department Care Team (Late st Contact Info) Description 11/07/2022 Refill [facility] [address] [place] [phone] Carroll Roberts MD [address] [place] [address] [phone] Uncomplicated opioid dependence (CMS/HCC) Social History Tobacco [...] Department Care Team (Late Contact Info) Description 09/06/2025 11:30 AM EST Office Visit [facility] [address] [place] [phone] Galo Fang MD [address] [place], [place] [phone] 09/14/2025 9:00 AM EST Office Visit [facility] [address] [place] [phone] Carroll Roberts MD [address] [place] [address] [phone] 09/21/2025 11:00 AM EST Office Visit [facility] [address] [place], [place] [phone] Pat Bates, OD [address] [place], [place] [phone] documented as of this encounter Visit Diagnoses Diagnosis Uncomplicated opioid dependence (CMS/HCC) (HCC) documented in this encounter Care Teams Surveillance Sensor Operator Relationship Specialty Start Date End Date Galo Fang MD [address] [place], [place] [phone] PCP - General Internal Medicine 04/04/14 documented as of this encounter
--- OUTSIDE RECORDS SUMMARY | 2025-07-19 10:19 | XMS_ITS | Encounter Summary ---
Author Organization [employer] [facility] Address [address] [place] [address] 7 [place] [address] Care Team Providers Care Direct Marketing Representative Name Role Phone Galo aFng MD Primary Care Provide r Reason for Visit * Reason Comments Med Refill Encounter Details Date Type Department Care Team (Late st Contact Info) Description 11/12/2022 Refill [facility] [address] [place] [address] Galo Fang MD [address] [place], [place] [phone] Gastroesophageal reflux disease, unspecified whether esophagitis present [...] Description 09/06/2025 11:30 AM EST Office Visit [facility] [address] [place] [address] [phone] Galo Fang MD [address] [place], [place] [phone] 09/14/2025 9:00 AM EST Office Visit [facility] [address] [place] [phone] Carroll Roberts MD [address] [place], [place] [phone] 09/21/2025 11:00 AM EST Office Visit [facility] [address] [place], [place] [phone] Pat Bates, OD [address] [place], [place] [phone] documented as of this encounter Visit Diagnoses Diagnosis Gastroesophageal reflux disease, unspecified whether esophagitis present documented in this encounter Care Teams Direct Marketing Representative Relationship Specialty Start Date End Date Galo Fang MD [address] [place], [place] [phone] PCP - General Internal Medicine 04/04/14 documented as of this encounter
--- OUTSIDE RECORDS SUMMARY | 2025-07-19 10:19 | XMS_ITS | Encounter Summary ---
Author Organization [employer] [facility] Address [address] [place] [address] 7t [place] [address] Care Team Providers Care Civil Geotechnical Engineer Name Role Phone Galo Fang MD Primary Care Provide r Encounter Details Date Type Department Care Team (Late st Contact Info) Description 12/23/2022 Abstract [facility] [address] [place] [phone] Galo Fang MD [address] [place] [phone] Social History Tobacco Use Types Packs/Day Years [...] Description 09/06/2025 11:30 AM EST Office Visit [facility] [address] [place] [phone] Galo Fang MD [address] [place] [address] [phone] 09/14/2025 9:00 AM EST Office Visit [facility] [address] [place] [phone] Carroll Roberts MD [address] [place] [address] [phone] 09/21/2025 11:00 AM EST Office Visit [facility] [address] [place], [place] [phone] Pat Bates, OD [address] [place], [place] [phone] documented as of this encounter Procedures Procedure Name Priority Date/Time Associated Diagnosis Comments HM COLONOSCOPY Routine 07/29/2018 documented in this encounter Results * Hm Colonoscopy (07/29/2018) Colonoscopy Normal Normal 07/29/2018 Narrative Georgia Rubio - 07/29/2018 1:52 PM EST Recommended 10 year follow up Historical Provider HEALTH MAINTENANCE Final Result documented in this encounter Visit Diagnoses Not on filedocumented in this encounter Care Teams Civil Geotechnical Engineer Relationship Specialty Start Date End Date Galo Fang MD [address] [place], [place] [phone] PCP - General Internal Medicine 04/04/14 documented as of this encounter
--- OUTSIDE RECORDS SUMMARY | 2025-07-19 10:20 | XMS_ITS | Encounter Summary ---
Author Organization [employer] Address [address] [facility] 7t [place] [address] Care Team Providers Care Wood Treating Inspector Name Role Phone Galo Fang MD Primary Care Provide r Reason for Visit * Reason Comments Med Refill Encounter Details Date Type Department Care Team ([facility] st Contact Info) Description 12/03/2023 Refill [facility] [address] [place], [place] [phone] Carroll Roberts MD [address] [place] [address] Uncomplicated opioid dependence (CMS/HCC) Social History Tobacco [...] Description 09/06/2025 11:30 AM EST Office Visit [facility] [address] [place] [address] Galo Fang MD [address] [place] [address] 09/14/2025 9:00 AM EST Office Visit [facility] [address] [place] [address] Carroll Roberts MD [address] [place] [address] 09/21/2025 11:00 AM EST Office Visit [facility] [address] [place] [address] Pat Bates, OD [address] [place] [address] documented as of this encounter Visit Diagnoses Diagnosis Uncomplicated opioid dependence (CMS/HCC) (HCC) documented in this encounter Additional Health Concerns Assessment Noted Time PHQ-9 Depression Total Score: 0 07/01/20 23 1:10 PM EST documented as of this encounter Care Teams Wood Treating Inspector Relationship Specialty Start Date End Date Galo Fang MD [address] [place] [phone] PCP - General Internal Medicine 04/04/14 documented as of this encounter
--- OUTSIDE RECORDS SUMMARY | 2025-07-19 10:20 | XMS_ITS | Encounter Summary ---
Author Organization [employer] Address [address] [facility] [address]t [place] [address] Care Team Providers Care Protection Specialist Name Role Phone Galo Fang MD Primary Care Provide r Reason for Visit * Reason Comments Med Refill Encounter Details Date Type Department Care Team ([facility] Contact Info) Description 12/23/2023 Refill [facility] MEDICINE [address] [place], [place] [phone] Carroll Roberts MD [address] [place], [place] [phone] Constipation, unspecified constipation type Social History Tobacco [...] Description 09/06/2025 11:30 AM EST Office Visit [facility] MEDICINE [address] [place] [address] Galo Fang MD [address] [place] [address] 09/14/2025 9:00 AM EST Office Visit [facility] MEDICINE [address] [place] [address] Carroll Roberts MD [address] [place] [address] 09/21/2025 11:00 AM EST Office Visit [facility] OPTOMETRY [address] [place] [address] Paulo, Pat, OD [address] [place] [address] documented as of this encounter Visit Diagnoses Diagnosis Constipation, unspecified constipation type documented in this encounter Additional Health Concerns Assessment Noted Time PHQ-9 Depression Total Score: 0 07/01/20 23 1:10 PM EST documented as of this encounter Care Teams Protection Specialist Relationship Specialty Start Date End Date Galo Fang MD [address] [place] [address] PCP - General Internal Medicine 04/04/14 documented as of this encounter
--- OUTSIDE RECORDS SUMMARY | 2025-07-19 10:20 | XMS_ITS | Encounter Summary ---
Author Organization [employer] [facility] Address [address] [place] [address] 7 [place] [address] Care Team Providers Care Counter Attendant Name Role Phone Galo Fang MD Primary Care Provide r Reason for Visit * Reason Comments Med Refill Encounter Details Date Type Department Care Team (Late st Contact Info) Description 06/22/2023 Refill [facility] MEDICINE [address] [place] [phone] Carroll Roberts MD [address] [place] [address] [phone] Uncomplicated opioid dependence (CMS/HCC) Social History Tobacco [...] Description 09/06/2025 11:30 AM EST Office Visit [facility] MEDICINE [address] [place] [phone] Galo Fang MD [address] [place] [address] [phone] 09/14/2025 9:00 AM EST Office Visit [facility] MEDICINE [address] [place] [phone] Carroll Roberts MD [address] [place] [address] 09/21/2025 11:00 AM EST Office Visit [facility] OPTOMETRY [address] [place], [place] [phone] Pat Bates, OD [address] [place], [place] [phone] documented as of this encounter Visit Diagnoses Diagnosis Uncomplicated opioid dependence (CMS/HCC) (HCC) documented in this encounter Care Teams Counter Attendant Relationship Specialty Start Date End Date Galo Fang MD [address] [place], [place] [phone] PCP - General Internal Medicine 04/04/14 documented as of this encounter
--- OUTSIDE RECORDS SUMMARY | 2025-07-19 10:20 | XMS_ITS | Encounter Summary ---
Author Organization [employer] Address [address] [facility] 7t [place] [address] Care Team Providers Care Trommel Tender Name Role Phone Galo Fang MD Primary Care Provide r Reason for Visit * Reason Comments Med Refill Encounter Details Date Type Department Care Team ([facility] Contact Info) Description 01/28/2024 Refill [facility] MEDICINE [address] [place], [place] [phone] Carroll Roberts MD [address] [place], [place] [phone] Uncomplicated opioid dependence (CMS/HCC) Social History Tobacco [...] Description 09/06/2025 11:30 AM EST Office Visit [facility] MEDICINE [address] [place] [address] Galo Fang MD [address] [place] [address] 09/14/2025 9:00 AM EST Office Visit [facility] MEDICINE [address] [place] [address] Carroll Roberts MD [address] [place] [address] 09/21/2025 11:00 AM EST Office Visit [facility] OPTOMETRY [address] [place] [address] Pat Bates, OD [address] [place] [address] documented as of this encounter Visit Diagnoses Diagnosis Uncomplicated opioid dependence (CMS/HCC) (HCC) documented in this encounter Additional Health Concerns Assessment Noted Time PHQ-9 Depression Total Score: 0 07/01/20 23 1:10 PM EST documented as of this encounter Care Teams Trommel Tender Relationship Specialty Start Date End Date Galo Fang MD [address] [place] [phone] PCP - General Internal Medicine 04/04/14 documented as of this encounter
--- OUTSIDE RECORDS SUMMARY | 2025-07-19 10:20 | XMS_ITS | Encounter Summary ---
Author Organization [facility] Address [address] [place] [address] 7 [place] [address] Care Team Providers Care Tenderizer Tender Name Role Phone Galo Fang MD Primary Care Provide r Reason for Visit * Reason Comments Med Refill Encounter Details Date Type Department Care Team (Late Contact Info) Description 04/27/2023 Refill [facility] MEDICINE [address] [place] [phone] Carroll Roberts MD [address] [place] [address] [phone] Uncomplicated opioid dependence (CMS/HCC) Social History Tobacco [...] Description 09/06/2025 11:30 AM EST Office Visit [facility] MEDICINE [address] [place] [address] [phone] Galo Fang MD [address] [place] [address] [phone] 09/14/2025 9:00 AM EST Office Visit [facility] MEDICINE [address] [place] [address] [phone] Carroll Roberts MD [address] [place] [address] 09/21/2025 11:00 AM EST Office Visit [facility] OPTOMETRY [address] [place], [place] [phone] Pat Bates, OD [address] [place], [place] [phone] documented as of this encounter Visit Diagnoses Diagnosis Uncomplicated opioid dependence (CMS/HCC) (HCC) documented in this encounter Care Teams Tenderizer Tender Relationship Specialty Start Date End Date Galo Fang MD [address] [place], [place] [phone] PCP - General Internal Medicine 04/04/14 documented as of this encounter
--- OUTSIDE RECORDS SUMMARY | 2025-07-19 10:20 | XMS_ITS | Clinical Summary ---
Author Organization [employer] Address [address] [place] [address] Care Team Providers Care Technical Writer And Editor Name Role Phone Galo Fang MD [...] 2 WEEKS 023 Active Continuous Blood Gluc Truck Striker (FreeStyle Yahaira 2 Hull) device USE DIRECTED 023 Active FREESTYLE LITE [...] skin every 7 (seven) days. 025 Active atorvastatin (Lipitor) 20 MG tabletIndicatio [...] 2025. 28 Film 2 025 2025 Active Viagra 100 MG tabletIndicatio ns:Erectile dysfunction due to diseases classified elsewhere TAKE 1 TABLET 1 HOUR BEFORE SEXUAL RELATIONS ONCE DAILY NEEDED. 10 tablet 1 Active sildenafil (Viagra) 100 MG tabletIndicatio ns:Erectile dysfunction due to diseases classified elsewhere Take 1 tablet (100 mg) by mouth if needed each day for erectile dysfunction. 10 tablet 1 025 2024 Discontinued Active Problems Problem Noted Date Diagnosed Date Hospital discharge follow-up 04/10/2025 Assessment & Plan (04/10/2025 9:13 AM EDT): Pt here for a HDF Admitted to [facility] from 03/18-03/21/2025 after he presented with c/o [...] acute bony abnormality. Pt was seen by Rotating Equipment Specialist 05/17/2024 work up in progress Assessment & [...] and L1-L2 levels. Under the care of [facility] pain Management, they recommended PT [...] to decline PT Pt was referred to [facility], pt did not go. Previous plain film of LS spine unremarkable Plan:Plain films LS Spine, right hip Refer back to [facility] Assessment & Plan (04/06/2023 1:21 PM EDT): Pt with previous c/o acute om chronic lbp currently back pain is worse per his report intensity 4/10 no radiation not a good candidate for NSAIDS, continues to decline PT Pt was [facility], pt did not go. plain film of LS spine unremarkable Preventative health care 03/02/2023 Assessment & Plan (03/13/2025 1:28 PM EDT): PSA 09/05/2024 : Normal, Colonoscopy: 07/29/2018 at [facility] diverticulosis Assessment & Plan (09/12/2024 9:25 AM EST): PSA 04/06/2023 : Normal, repeat ordered Colonoscopy: 07/29/2018 at [facility] diverticulosis Assessment & Plan (07/01/2023 1:02 PM EST): PSA 04/06/2023 : Normal Colonoscopy: 07/29/2018 at [facility] diverticulosis Assessment & Plan (04/06/2023 1:22 PM EDT): Colonoscopy: 07/29/2018 at [facility] diverticulosis Aortic valve stenosis 07/17/2022 Assessment & [...] exam was last done by Dr. Littlejohn (social media executive) No diabetic retinopathy. 07/31/2024 Microalbumin checked on: 11/29/2023 was: 7 Pt is on ARB (lisinopril caused him itchy throat and ? angioedema ? ) . Foot check risk of zero Pt reports compliance with Asa 81 mg po daily Plan: As per Boiler Operator Helper Pt advised to: adhere to diabetic diet [...] exam was last done by Dr. Littlejohn (social media executive) No diabetic retinopathy. 07/31/2024 Microalbumin checked on: 11/29/2023 was: 7 Pt is on ARB (lisinopril caused him itchy throat and ? angioedema ? ) . Foot check risk of zero Pt reports compliance with Asa 81 mg po daily Plan: As per Boiler Operator Helper Pt advised to: adhere to diabetic diet [...] exam was last done by Dr. Littlejohn (social media executive) No diabetic retinopathy. 07/31/2024 Microalbumin checked on: 11/29/2023 was: 7 Pt is on ARB (lisinopril caused him itchy throat and ? angioedema ? ) . Foot check risk of zero Pt reports compliance with Asa 81 mg po daily Plan: as per Boiler Operator Helper Pt advised to: adhere to diabetic diet [...] exam was last done by Dr. Littlejohn (social media executive) No diabetic retinopathy. Microalbumin checked on: 11/29/2023 was: 7 Pt is no longer on an WALDEMAR inhibitor. (lisinopril caused him itchy throat and ? angioedema ? ) . Foot check risk of zero Pt reports compliance with Asa 81 mg po daily Plan: as per Boiler Operator Helper Pt advised to: adhere to diabetic diet [...] exam was last done by Dr. Littlejohn (social media executive) No diabetic retinopathy. Microalbumin checked on: 01/14/2021 was: 22 Pt is no longer on an WALDEMAR inhibitor. (lisinopril caused him itchy throat and ? angioedema ? ) . Foot check risk of zero Pt reports compliance with Asa 81 mg po daily Plan: as per Boiler Operator Helper Pt advised to: adhere to diabetic diet [...] exam was last done by Dr. Littlejohn (social media executive) No diabetic retinopathy. Microalbumin checked on: 01/14/2021 was: 22 Pt is no longer on an WALDEMAR inhibitor. (lisinopril caused him itchy throat and ? angioedema ? ) . Will repeat Foot check risk of zero Pt reports compliance with Asa 81 mg po daily Plan: as per Boiler Operator Helper Pt advised to: adhere to diabetic diet [...] exam was last done by Dr. Littlejohn (social media executive) No diabetic retinopathy. Microalbumin checked on: 01/14/2021 was: 22 Pt is no longer on an WALDEMAR inhibitor. (lisinopril caused him itchy throat and ? angioedema ? 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 who he attributes the fact that [...] Encounters Date Type Department Care Team Description 07/02/2025 Patient Outreach [facility] [address] [place] [address] Galo Fang MD Pre-visit Planning (SDOH screening was completed on 08/31/2024) 06/25/2025 Refill [facility] [address] [facility] [place] [address] Galo Fang MD Erectile dysfunction due to diseases classified elsewhere 06/22/2025 9:00 AM EST Office Visit [facility] [address] [facility] [place] [address] Carroll Roberts MD Opioid type dependence, continuous (CMS/HCC) (HCC) (Primary Dx); Opioid dependence on maintenance agonist therapy, no symptoms (CMS/HCC) (HCC) 06/22/2025 Orders Only GENERIC EXTERNAL DATA DEPARTMENT Provider, Generic External Data 06/22/2025 Travel 06/18/2025 Refill [facility] [address] [facility] [place] [address] 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, RN Opioid use disorder in remission 06/08/2025 Refill [facility] [address] [place] [address] Galo Fang MD Type 2 diabetes mellitus with diabetic polyneuropathy, with long-term current use of insulin (HCC) 05/24/2025 Orders Only [facility] External Provider, [facility] 05/17/2025 Orders Only [facility] External Provider, [facility] 05/15/2025 Orders Only GENERIC EXTERNAL DATA DEPARTMENT Provider, Generic External Data 05/15/2025 Results Follow-Up [facility] [address] [place] [address] Susan Arriaga MD D Dimer High Sensitivity 05/14/2025 Telephone [facility] [address] [place] [phone] Galo Fang MD Call Back Request 05/14/2025 Orders Only [facility] [address] [place] [address] Susan Arriaga MD 05/14/2025 Telephone [facility] [address] [place] [phone] Galo Fang MD CRITICAL LAB 05/11/2025 4:00 PM EDT Office Visit [facility] [address] [place] [phone] Susan Arriaga MD Pain of left calf (Primary Dx) 05/11/2025 Travel 04/30/2025 Orders Only GENERIC EXTERNAL DATA DEPARTMENT Provider, Generic External Data 04/30/2025 Telephone [facility] [address] [place] [phone] Galo Fang MD November recall 04/24/2025 Travel from Last 3 Months Immunizations Immunization Administration [...] 09/06/2025 11:30 AM EST Office Visit [facility] [address] [place] [address] Galo Fang MD [address] [place] [address] 09/14/2025 9:00 AM EST Office Visit [facility] [address] [place] [address] Carroll Roberts MD [address] [place] [address] 09/21/2025 11:00 AM EST Office Visit [facility] [address] [place] [address] Paulo, Pat, OD [address] [place] [address] Health Maintenance Due Date Last Done Comments CT Colonography 1960 FIT DNA/Cologuard 1960 FIT 1960 FOBT 1960 Sigmoidoscopy 1960 Diabetes: Foot Exam 1970 RSV Patients and Patients Aged 60 years or older (1 - Risk 50-74 years 1-dose series) 2010 Zoster Vaccines (1 of 2) 2010 DTaP/Tdap/Td Vaccines (2 - Td or Tdap) 04/04/2025 04/04/2015, 02/06/2003 COVID-19 Vaccine (4 - season) 2025 08/14/2021, 11/25/2020, 10/28/2020 Influenza Vaccine (#1) 2025 , 06/29/2017, 05/28/2016, Additional history exists Diabetes: Hemoglobin A1C 07/11/2025 025, 03/13/2025, 09/12/2024, Additional history exists SDOH Screening 08/31/2025 08/31/2024 Alcohol/Substance Use Screening 09/12/2025 09/12/2024 Diabetes: Urine Protein Screening 02/28/2026 02/28/2025, 02/28/2025, 06/07/2024, Additional history exists Lipid Panel 02/28/2026 02/28/2025, [...] 025 9:26 AM EDT) Frieda Trevino, RN Help patients manage their type 2 diabetes Care Plan Help patients manage their type 2 diabetes Imani Frank Weekly blood pressure task Care Plan Weekly blood pressure task No Imani Valero Help patients manage their type 2 diabetes Care Plan Help patients manage their type 2 diabetes No Imani Valero Patient has chronic kidney disease Care Plan Patient has chronic kidney disease No Imani Valero Weekly blood pressure task Care Plan Weekly blood pressure task No Imani Valero Patient has chronic kidney disease Care Plan Patient has chronic kidney disease No Imani Valero Procedures Procedure Name Priority Date/Time Associated Diagnosis Comments BASIC METABOLIC PANEL Routine 06/22/2025 9:47 AM EST CBC WITH AUTO DIFFERENTIAL Routine 06/22/2025 9:47 [...] polyneuropathy, with long-term current use of insulin ([facility]) LIPID PANEL, STANDARD Routine 02/28/2025 10:04 AM [...] Blood Count 4.9 4.8 - 10.8 X10*3/uL [facility] Red Blood Count 4.48(L) 4.60 - 5.80 X10*6/uL [facility] Hemoglobin 12.6(L) 14.0 - 18.0 g/dl [facility] Hematocrit 38.6(L) 42.0 - 52.0 % [facility] Mean Corpuscular Volume 86.2 80.0 - 98.0 fL [facility] Mean Corpuscular Hemoglobin 28.1 27.0 - 33.0 pg [facility] Mean Corpuscular HGB Conc 32.6 31.0 - 36.0 g/dl [facility] Red Cell Distribution Width 13.5 11.0 - 16.0 % [facility] Platelet Count 202 160 - 400 X10*3/uL [facility] Mean Platelet Volume 9.3(L) 9.4 - 12.4 fL [facility] Neutrophils Percent Auto 57.6 45 - 73 % [facility] Imm Gran Pct Auto 0.2 0.0 - 0.4 % [facility] Lymphocytes Percent Auto 24.7 20 - 40 % [facility] Monocytes Percent Auto 11.8(H) 2 - 11 % [facility] Eosinophils Percent Auto 4.7(H) 0 - 4 % [facility] Basophils Percent Auto 1.0 0 - 2 % [facility] NRBC Pct Auto 0.0 0.0 - 0.2 /100WBC [facility] Neutrophils Absolute Auto 2.8 2.0 - 8.3 x10*3/uL [facility] Imm Gran Abs Auto 0.01 0.00 - 0.03 X10*3/uL [facility] Lymphocytes Absolute Auto 1.2 1.2 - 4.9 X10*3/uL [facility] Monocytes Absolute Auto 0.6 0.1 - 1.2 X10*3/uL [facility] Eosinophils Absolute Auto 0.2 0.0 - 0.4 X10*3/uL [facility] Basophils Absolute Auto 0.1 0.0 - 0.2 X10*3/uL [facility] NRBC Abs Auto 0.000 0.0 - 0.012 X10*3/uL [facility] 06/22/2025 9:47 AM EST 06/22/2025 9:47 AM EST Generic External Data Provider LAB BLOOD ORDERAB LES Final Result Performing Organization Address [facility] Co de Phone Number [facility] [address] [place] [address] [phone] * Prothrombin Time-INR (06/22/2025 9:47 AM EST) Only the most recent of2 resultswithin the time period is included. Prothrombin Time 13.0 11.2 - 13.5 SEC [facility] INTERNATIONAL NORM RATIO 1.1 0.9 - 1.1 [facility] Comment:INTERNATIONAL NORMAL IZED RATIO [...] ORDERAB LES Final Result Performing Organization Address [facility] Co de Phone Number [facility] [address] [place] [address] [phone] * (ABNORMAL) Basic Metabolic Panel (06/22/2025 9:47 AM EST) Sodium 135 135 - 145 mmol/L [facility] Potassium 4.4 3.3 - 5.1 mmol/L [facility] Chloride 99 96 - 108 mmol/L [facility] Carbon Dioxide 31(H) 22 - 29 mmol/L [facility] Anion Gap 9(L) 12 - 20 [facility] Urea Nitrogen (BUN) 16 9 - 16 mg/dL [facility] Creatinine, Serum 0.86 0.5 - 1.4 mg/dL [facility] Estimated Glomerular Filt Rate >60 [facility] Comment:Chronic Kidney Disea se: Estimated GFR < 60 mL/min/1.35s9Wifdtu Kidney Disease: Estimated GFR < 15 mL/min/1.73m2 Glucose 169(H) 60 - 115 mg/dL [facility] Calcium 8.8 8.4 - 10.2 mg/dL [facility] 06/22/2025 9:47 AM EST 06/22/2025 9:47 AM EST us Generic External Data Provider LAB BLOOD ORDERAB LES Final Result [facility] [address] [place] [phone] * (ABNORMAL) POCT FRANCESCA-14 Urine Drug [...] AM EDT) 05/24/2025 9:52 AM EDT Narrative [facility] - 05/25/2025 4:07 PM EDT [address] [address] Nuclear Medicine Report Signed Patient: Nemesio Brown MR#: [id number] : 1960 Acct:[id number] Age/Sex: 64 / M ADM Date: 05/24/25 Loc: HO.CARD Attending Dr: Anastasiia ALLEN Ordering Physician: Anastasiia Olson Date of Service: 05/24/25 Procedure(s): NM cardiolite stress test Accession Number(s): [id number] cc: Anastasiia Olson; Galo Prajapati MD Reason [...] 05/25/25 1604 DD/ 0952 TD/TT: 05/25/25 1200 Transportation Mechanic: Procedure Note Donotuseinterpreter, Image - 05/25/2025 [place] [address] Nuclear Medicine Report Signed Patient: Radha BrownarMR#: [id number] : 1960Acct:[id number] Age/Sex: 64 / MADM Date: 05/24/25 Loc: PrernaCARD Attending Dr: Anastasiia ALLEN Ordering Physician: Anastasiia Olson Date of Service: 05/24/25 Procedure(s): NM cardiolite stress test Accession Number(s): [id number] cc: Anastasiia Olson; Galo Prajapati MD Reason [...] 05/25/25 1604 DD/ 0952 TD/TT: 05/25/25 1200 Transportation Mechanic: [facility] External Provider CV STRE SS PROCEDURES Final Result Performing Organization Address [facility] Co de Phone Number [facility] [address] [place] [phone] * (ABNORMAL) High Sensitivity Troponin I (05/17/2025 2:10 PM EDT) Only the most recent of2 resultswithin the time period is included. TROPONIN I HIGH SENSITIVITY 55.0(H) <3.5 - 35.0 ng/L [facility] Comment:The Meza high sens itivity Troponin-I results should beused in conjunction with other diagnostic information suchas ECG, clinical observations and information, and patientsymptoms to aid in the diagnosis of HI. 05/17/2025 2:10 PM EDT 05/17/2025 2:18 PM EDT Generic External Data Provider LAB BLOOD ORDERAB LES Final Result Performing Organization Address [facility] Co de Phone Number [facility] [address] [place] [phone] * NT-proBNP (05/17/2025 11:50 AM EDT) Only the most recent of2 resultswithin the time period is included. NT-proBNP 111.0 <300 pg/mL [facility] Comment:Reference Range:Age Group (years) NT-proBNP (pg/ml) InterpretationAll <300 Negative: HF unlikelyFor patients presenting to the ED with clinical suspicion ofnew onset or worsening HF, see below:18 to <50 >299.9 to <450.0 Grayzone: Indreonx56 to 75 >299.9 to <900.0 other causes of>75 >299.9 to <1800.0 NT-proBNP [id number] to <50 >449.9 Positive: HF [id number] >899.9>75 >1799.9Note: Elevated NT-proBNP levels should be interpreted inthe context of other clinical information. 05/17/2025 11:5 0 AM EDT 05/17/2025 11:55 AM EDT us Generic External Data Provider LAB BLOOD ORDERAB LES Final Result [facility] [address] [place] [phone] * (ABNORMAL) Comprehensive Metabolic Panel (05/17/2025 11:50 AM EDT) Only the most recent of2 resultswithin the time period is included. Sodium 137 135 - 145 mmol/L [facility] Potassium 4.5 3.3 - 5.1 mmol/L [facility] Chloride 100 96 - 108 mmol/L [facility] Carbon Dioxide 31(H) 22 - 29 mmol/L [facility] Anion Gap 11(L) 12 - 20 [facility] Urea Nitrogen (BUN) 14 9 - 16 mg/dL [facility] Creatinine, Serum 0.80 0.5 - 1.4 mg/dL [facility] Creatinine Clr Calc Pharmacy 105.9 [facility] Comment:eGFR (calculated fro m the MDRD study equation) and eCrCl(calculated from the Cockcroft-Gault equation) are based ondifferent parameters and may not yield comparable results.If eCrCl result is absurd, please check patient'sheight/weight. Estimated Glomerular Filt Rate >60 [facility] Comment:Chronic Kidney Disea se: Estimated GFR < 60 mL/min/1.30x1Mlzwgc Kidney Disease: Estimated GFR < 15 mL/min/1.73m2 Glucose 150(H) 60 - 115 mg/dL [facility] Calcium 9.2 8.4 - 10.2 mg/dL [facility] Bilirubin, Total 0.4 0.0 - 1.0 mg/dL [facility] Aspartate Amino Transferase 21 5 - 37 U/L [facility] Alanine Aminotransferase 16 0 - 40 U/L [facility] Total Protein 7.1 6.5 - 8.0 g/dL [facility] Albumin Level 4.3 3.5 - 5.0 g/dL [facility] Alkaline Phosphatase 81 39 - 117 U/L [facility] 05/17/2025 11:5 0 AM EDT 05/17/2025 11:55 AM EDT us Generic External Data Provider LAB BLOOD ORDERAB LES Final Result Performing Organization Address City/State/[facility] Co de Phone Number [facility] [address] [place] [phone] * XR Chest 1 View (05/17/2025 11:46 AM EDT) Anatomical Region Laterality Modality Chest Radiographic Rosemarie ging 05/17/2025 11:4 6 AM EDT Narrative 05/17/2025 11:53 AM EDT [address] [address] XRay Report Signed Patient: Nemesio Brown MR#: [id number] : 1960 Acct:[id number] Age/Sex: 64 / M ADM Date: 05/17/25 Loc: HO.ED Attending Dr: Ordering Physician: Samson Mueller Date of Service: 05/17/25 Procedure(s): XR chest 1V Accession Number(s): [id number] cc: Samson Mueller; Galo Prajapati MD Reason [...] 05/17/25 1149 DD/ 1146 TD/TT: 05/17/25 1144 Transportation Mechanic: Procedure Note Donotuseinterpreter, Image - 05/17/[address] [address] XRay Report Signed Patient: Radha BrownarMR#: [id number] : 1960Acct:[id number] Age/Sex: 64 / MADM Date: 05/17/25 Loc: HO.ED Attending Dr: Ordering Physician: Samson Mueller Date of Service: 05/17/25 Procedure(s): XR chest 1V Accession Number(s): [id number] cc: Samson Mueller; Galo Prajapati MD Reason [...] 05/17/25 1149 DD/ 1146 TD/TT: 05/17/25 1144 Transportation Mechanic: [facility] External Provider IMG XR PROCEDURES Edited Result - Final * Magnesium (05/15/2025 3:46 PM EDT) Magnesium 2.2 1.6 - 2.6 mg/dL [facility] 05/15/2025 3:46 PM EDT 05/15/2025 3:46 PM EDT us Generic External Data Provider LAB BLOOD ORDERAB LES Final Result Performing Organization Address City/State/[facility] Co de Phone Number [facility] [address] [place] [phone] * Lower Extremity Venous Duplex (05/14/2025 12:40 PM EDT) 05/14/2025 12:4 0 PM EDT Narrative [facility] - 05/14/2025 1:07 PM EDT [address] [address] Ultrasound Report Signed Patient: Nemesio Brown MR#: [id number] : 1960 Acct:[id number] Age/Sex: 64 / M ADM Date: 05/14/25 Loc: .ED Attending Dr: Ordering Physician: Amee Acosta Date of Service: 05/14/25 Procedure(s): US venous duplex LE LT Accession Number(s): [id number] cc: Galo Prajapati MD; Amee Acosta Reason [...] 05/14/25 1304 DD/ 1240 TD/TT: 05/14/25 1248 Transportation Mechanic: Procedure Note Donotuseinterpreter, Image - 05/14/[address] [address] Ultrasound Report Signed Patient: Raul RamírezOscarMR#: [id number] : 1960Acct:[id number] Age/Sex: 64 / MADM Date: 05/14/25 Loc: HO.ED Attending Dr: Ordering Physician: Amee Acosta Date of Service: 05/14/25 Procedure(s): US venous duplex LE LT Accession Number(s): [id number] cc: Galo Prajapati MD; Amee Acosta Reason [...] 05/14/25 1304 DD/ 1240 TD/TT: 05/14/25 1248 Transportation Mechanic: us [facility] External Provider CV VASC ULAR PROCEDURES Final Result [facility] [address] [place] [phone] * D Dimer High Sensitivity (05/14/2025 9:43 AM EDT) [facility] D Dimer High Sensitivity 278 NG/ML [facility] Comment:Results of Homero sawant [...] ORDERABLES Final Re sult Performing Organization Address [facility]/ZIP Co de Phone Number [facility] [address] [place] [phone] * (ABNORMAL) Glucose, Whole Blood (04/30/2025 1:32 PM EDT) [facility] Glucose, Whole Blood 189(H) 60 - 115 mg/dL [facility] Comment:METER #: [id number] 0Testing performed in the Endocrinology Department [address], [address], [facility]. 04/30/2025 1:32 PM EDT 04/30/2025 1:36 PM EDT Generic External Data Provider LAB BLOOD ORDERAB LES Final Result Performing Organization Address [facility]/ZIP Co de Phone Number [facility] [address] [place] [phone] * (ABNORMAL) POCT HGB A1C (04/10/2025 9:07 AM EDT) [facility] Hemoglobin A1C 7.6(A) 4.0 - 5.7 % QC Media Lot # [id number] Lot# Expiration Date [id number] Blood 04/10/2025 9:07 AM EDT us Galo Ramey MD POINT OF CARE TEST EN TER/EDIT ORDERABLES Final Result * (ABNORMAL) Lipid Panel, Standard (02/28/2025 10:04 AM EDT) Triglycerides 187(H) <150 mg/dL [facility] Comment:Desirable Triglyceri de: less than 150 mg/dLBorderline High Triglyceride 150-199 mg/dLHigh Triglyceride: 200-499 mg/dLVery High Triglyceride: greater than or equal to 5OO mg/dL Cholesterol 164 <200 mg/dL [facility] Comment:Desirable Cholestero l: less than 200 mg/dLBorderline High Cholesterol: 200-239 mg/dLHigh Cholesterol: greater than 239 mg/dL LDL Cholesterol Calculated 91 <100 mg/dL [facility] Comment:Desirable LDL: less than [...] Provider LAB BLOOD ORDERAB LES Final Result [facility] [address] [place] [phone] * Albumin, Random Urine W/Creatinine (02/28/2025 10:02 AM EDT) Creatinine, Urine 208.62 mg/dL [facility] Microalbumin Urine 26.0 mg/L [facility] Microalbum Creatinine Ratio Ur 12.4 <30 ug/mg cr [facility] Comment:Albumin/Creatinine R atio Reference Ranges: Normal: < 30 ug/mg creatinine Microalbuminuria: 30 - 300 ug/mg creatinineClinical Albuminuria: > 300 ug/mg creatinine 02/28/2025 10:0 2 AM EDT 02/28/2025 10:36 AM EDT Generic External Data Provider LAB URINE ORDERAB LES Final Result Performing Organization Address [facility] Co de Phone Number [facility] [address] [place] [address] [phone] * Hepatitis Panel, General (06/07/2024 10:41 AM EDT) Hepatitis A IgM Nonreactive Nonreactive [facility] Comment:IgM antibodies to ALBRECHT V not detected; does not exclude earlyacute or recovered HAV infection. ~Hepatitis B Surface Antibody NONREACTIVE Nonreactive [facility] Comment:Nonreactive: < 8.00 mIU/mL Hepatitis B Core Antibody Nonreactive Nonreactive [facility] Hepatitis C Antibody Nonreactive Nonreactive [facility] Comment:Antibodies to HCV no t detected; does not exclude early acuteHCV infection. Hepatitis B Surface Ag Negative Negative [facility] 06/07/2024 10:4 1 AM EDT 06/07/2024 10:41 AM EDT Generic External Data Provider LAB BLOOD ORDERAB LES Final Result Performing Organization Address [facility] Co de Phone Number [facility] [address] [place] [address] [phone] * Hm Colonoscopy (07/29/2018) Colonoscopy Normal Normal 07/29/2018 Narrative Georgia Rubio - 07/29/2018 1:52 PM EST Recommended 10 year follow up Historical Provider HEALTH MAINTENANCE Final Result from Last 3 Months or Most Recently Relevant to Health Maintenance Additional Health Concerns Active Problems Noted Date Diagnosed Date Help patients manage their type 2 diabetes 07/02 Weekly blood pressure task 07/02/2025 Help patients manage their type 2 diabetes 07/02 Patient has chronic kidney disease 07/02/2025 Weekly blood pressure task 07/02/2025 Patient has chronic kidney disease 07/02/2025 Insurance [place], [place] MEDICARE Member Subscriber Plan / Payer (Ef fective 2025-Present) Name:Raul DesireeNemesio finney Member ID:[id number] Relation to Subscriber:Self Name:Nemesio Brown Subscriber ID:[id number] Payer ID:[id number] Group ID:Not on file Type:Medicare [facility] [address] [address] [facility] STAND[facility] Care Teams Technical Writer And Editor Relationship Specialty Start Date End Date Galo Fang MD [address] [place] [address] PCP - General Internal Medicine 04/04/14
--- OUTSIDE RECORDS SUMMARY | 2025-07-19 10:20 | XMS_ITS | Encounter Summary ---
Author Organization [employer] [facility] Address [address] [place] [address] 7 [place] [address] Care Team Providers Care Wire Dropper Name Role Phone Galo Fang MD Primary Care Provide r Reason for Visit * Reason Comments Med Refill Encounter Details Date Type Department Care Team (Late st Contact Info) Description 03/02/2023 Refill [facility] [address] [place] [phone] Carroll Roberts MD [address] [place], [place] [phone] Uncomplicated opioid dependence (CMS/HCC) Social History Tobacco [...] Description 09/06/2025 11:30 AM EST Office Visit [facility] [address] [place] [phone] Galo Fang MD [address] [place], [place] [phone] 09/14/2025 9:00 AM EST Office Visit [facility] [address] [place] [phone] Carroll Roberts MD [address] [place] [address] [phone] 09/21/2025 11:00 AM EST Office Visit [facility] [address] [place], [place] [phone] Pat Bates, OD [address] [place], [place] [phone] documented as of this encounter Visit Diagnoses Diagnosis Uncomplicated opioid dependence (CMS/HCC) (HCC) documented in this encounter Care Teams Wire Dropper Relationship Specialty Start Date End Date Galo Fang MD [address] [place], [place] [phone] PCP - General Internal Medicine 04/04/14 documented as of this encounter
--- OUTSIDE RECORDS SUMMARY | 2025-07-19 10:20 | XMS_ITS | Encounter Summary ---
Author Organization [employer] Address [address] [place] [address] Care Team Providers Care Beam Worker Name Role Phone Galo Fang MD Primary Care Provide r Reason for Visit * Reason Comments Med Refill Encounter Details Date Type Department Care Team ([facility] Contact Info) Description 04/20/2024 Refill [facility] [address] [place] [address] Karuna Covington MD [address] [place] [address] Foreign body sensation, right eye Social History [...] Description 09/06/2025 11:30 AM EST Office Visit [facility] [address] [place] [phone] Galo Fang MD [address] [place] [address] 09/14/2025 9:00 AM EST Office Visit [facility] [address] [place] [address] Carroll Roberts MD [address] [place] [address] 09/21/2025 11:00 AM EST Office Visit [facility] [address] [place] [address] Paulo, Pat, OD [address] [place] [address] documented as of this encounter Visit Diagnoses Diagnosis Foreign body sensation, right eye documented in this encounter Additional Health Concerns Assessment Noted Time PHQ-9 Depression Total Score: 0 07/01/20 23 1:10 PM EST documented as of this encounter Care Teams Beam Worker Relationship Specialty Start Date End Date Galo Fang MD [address] [place] [phone] PCP - General Internal Medicine 04/04/14 documented as of this encounter
--- OUTSIDE RECORDS SUMMARY | 2025-07-19 10:20 | XMS_ITS | Encounter Summary ---
Author Organization [employer] [facility] Address [address] [place] [address] 7t [place] [address] Care Team Providers Care Coal Wheeler Name Role Phone Galo Fang MD Primary Care Provide r Encounter Details Date Type Department Care Team (Late st Contact Info) Description 06/14/2023 Abstract [facility] [address] [place] [phone] Galo Fang MD [address] [place] [address] [phone] Social History Tobacco Use Types Packs/Day Years [...] 11:30 AM EST Office Visit [facility] [address] [place] [address] [phone] Galo Fang MD [address] [place] [address] [phone] 09/14/2025 9:00 AM EST Office Visit [facility] [address] [place] [address] [phone] Carroll Roberts MD [address] [place] [phone] 09/21/2025 11:00 AM EST Office Visit [facility] [address] [place] [address] Pat Bates, OD [address] [place] [address] documented as of this encounter Procedures Procedure [...] on filedocumented in this encounter Care Teams Coal Wheeler Relationship Specialty Start Date End Date Galo Fang MD [address] [place] [address] PCP - General Internal Medicine 04/04/14 documented as of this encounter
--- OUTSIDE RECORDS SUMMARY | 2025-07-19 10:20 | XMS_ITS | Patient Health Record ---
Author Organization [facility] Address [address] [place] [address] Care Team Providers Care Hand Trucker Name Role Phone Ahmet Abbasi Unavailable [phone] Reason For Referral No Information Plan Of Treatment No Information
--- OUTSIDE RECORDS SUMMARY | 2025-07-19 10:20 | XMS_ITS | Encounter Summary ---
Author Organization [employer] Address [address] [facility] 7t [place] [address] Care Team Providers Care Steward/Stewardess Wine Name Role Phone Galo Fang MD Primary Care Provide r Reason for Visit * Reason Comments Med Refill Encounter Details Date Type Department Care Team ([facility] st Contact Info) Description 10/08/2023 Refill [facility] [address] [place], [place] [phone] Carroll Roberts MD [address] [place] [address] Uncomplicated opioid dependence (CMS/HCC) Social History Tobacco [...] Description 09/06/2025 11:30 AM EST Office Visit [facility] [address] [place] [address] Galo Fang MD [address] [place] [address] 09/14/2025 9:00 AM EST Office Visit [facility] [address] [place] [address] Carroll Roberts MD [address] [place] [address] 09/21/2025 11:00 AM EST Office Visit [facility] [address] [place] [address] Pat Bates, OD [address] [place] [address] documented as of this encounter Visit Diagnoses Diagnosis Uncomplicated opioid dependence (CMS/HCC) (HCC) documented in this encounter Additional Health Concerns Assessment Noted Time PHQ-9 Depression Total Score: 0 07/01/20 23 1:10 PM EST documented as of this encounter Care Teams Steward/Stewardess Wine Relationship Specialty Start Date End Date Galo Fang MD [address] [place] [phone] PCP - General Internal Medicine 04/04/14 documented as of this encounter
--- OUTSIDE RECORDS SUMMARY | 2025-07-19 10:20 | XMS_ITS | Encounter Summary ---
Author Organization [employer] Address [address] [facility] 7t [place] [address] Care Team Providers Care Production Hardener Name Role Phone Galo Fang MD Primary Care Provide r Reason for Visit * Reason Comments Med Refill Encounter Details Date Type Department Care Team ([facility] Contact Info) Description 04/20/2024 Refill [facility] [address] [place] [address] Jocelyn Cruz FNP [address] [place] [address] Social History Tobacco Use Types Packs/Day Years [...] Description 09/06/2025 11:30 AM EST Office Visit [facility] [address] [place] [address] Galo Fang MD [address] [place] [address] 09/14/2025 9:00 AM EST Office Visit [facility] [address] [place] [address] Carroll Roberts MD [address] [place] [address] 09/21/2025 11:00 AM EST Office Visit [facility] [address] [place] [address] Paulo, Pat, OD [address] [place] [address] documented as of this encounter Visit Diagnoses Not on filedocumented in this encounter Additional Health Concerns Assessment Noted Time PHQ-9 Depression Total Score: 0 07/01/20 23 1:10 PM EST documented as of this encounter Care Teams Production Hardener Relationship Specialty Start Date End Date Galo Fang MD [address] [place] [phone] PCP - General Internal Medicine 04/04/14 documented as of this encounter
== END 2025-07-19 10:15 | disposition home or self-care (01) ==
LOC: HO.HCS 09:19
PROVIDERS: PCP Internal Medicine; Visit Provider Nurse Practitioner Family
DX: I47.29 Other ventricular tachycardia (principal); Z98.890 Other specified postprocedural states; I25.10 Atherosclerotic heart disease of native coronary artery without angina pectoris; Z95.0 Presence of cardiac pacemaker; Z95.2 Presence of prosthetic heart valve; T82.09XA Other mechanical complication of heart valve prosthesis, initial encounter; Z86.79 Personal history of other diseases of the circulatory system; I10 Essential (primary) hypertension; E78.5 Hyperlipidemia, unspecified; I77.89 Other specified disorders of arteries and arterioles
CPT/HCPCS: 99214; G2211

== ENCOUNTER → 2025-07-19 09:18 | Outpatient (BNVA) | payer OTHER, SELFPAY | PROVIDERS: PCP Internal Medicine; Visit Provider Nurse Practitioner Family | DX: I47.29 Other ventricular tachycardia (principal); I11.9 Hypertensive heart disease without heart failure; I25.10 Atherosclerotic heart disease of native coronary artery without angina pectoris; E78.5 Hyperlipidemia, unspecified; I77.89 Other specified disorders of arteries and arterioles; T82.09XA Other mechanical complication of heart valve prosthesis, initial encounter; Z95.0 Presence of cardiac pacemaker; Z95.2 Presence of prosthetic heart valve; Z86.79 Personal history of other diseases of the circulatory system; Z98.890 Other specified postprocedural states; Z79.899 Other long term (current) drug therapy; Z79.84 Long term (current) use of oral hypoglycemic drugs; Z99.89 Dependence on other enabling machines and devices; Z87.891 Personal history of nicotine dependence | CPT/HCPCS: 99212 ==

== ENCOUNTER → 2025-08-01 15:13 | Outpatient (BNV) | payer OTHER, SELFPAY | PROVIDERS: PCP Internal Medicine; Visit Provider Internal Medicine Cardiovascular Disease | DX: Z45.018 Encounter for adjustment and management of other part of cardiac pacemaker (principal) | CPT/HCPCS: 93294 ==